=== PATIENT | male | born 1950 | race Caucasian/White ===

== ENCOUNTER 2024-06-22 22:21 | Inpatient (IN) ==
[2024-06-22 22:52] LABS: Basophils # (auto) 0.03 K/uL (0.00-0.20); Basophils % (auto) 0.3 %; Eosinophils # (auto) 0.02 K/uL (0.00-0.50); Eosinophils % (auto) 0.2 %; Hematocrit (blood only) 48.2 % (42.0-52.0); Hemoglobin 16.4 g/dl (14.0-18.0); Immature Granulocytes # (auto) 0.04 K/uL (0.01-0.20); Immature Granulocytes % (auto) 0.4 %; Lymphocytes # (auto) 1.56 K/uL (1.20-3.40); Lymphocytes % (auto) 13.9 %; Mean Corpuscular Hemoglobin 30.7 pg (25.0-34.0); Mean Corpuscular Volume 90.1 fL (80.0-100.0); Mean Platelet Volume 9.7 fL (9.4-12.4); Monocytes # (auto) 0.68 K/uL (0.11-0.59); Monocytes % (auto) 6.1 %; Neutrophils # (auto) 8.86 K/uL (1.40-6.50); Neutrophils % (auto) 79.1 %; Platelet Count 296 K/uL (130-400); RDW Standard Deviation 42.6 fL (36.4-46.3); Red Blood Count 5.35 M/uL (4.70-6.10); White Blood Count 11.19 K/ul (4.8-10.8)
[2024-06-22 23:10] LABS: Albumin Level 4.7 gm/dl (3.4-5.0); BUN Creatinine Ratio 15.6 (10-20); Bilirubin,Total 0.9 mg/dl (0.2-1.0); Calcium 9.4 mg/dl (8.6-10.3); Globulin 2.3 gm/dl (2.5-4.0); Potassium 3.6 mmol/L (3.5-5.1)
--- NOTE | 2024-06-23 00:02 | Emergency Department Note ---
Impression & Plan Myasthenia gravis with (acute) exacerbation ED Provider Note NAME: JILL WALL AGE: 74 SEX: M : 1950 ARRIVES VIA: Walk-In INFORMANT: Patient, ED PROVIDER(S): Patricia Marcum MD CHIEF COMPLAINT: Difficulty swallowing HPI: This is a 74-year-old male sent for difficulty swallowing. Patient states he history of myasthenia gravis for multiple years. He has been on steroids, previously plasmapheresis and takes a injection. Patient notes he follows with [facility] neurology. He states that he is on increased doses of steroids without much relief. He received an injection today. He notes that he have difficulty swallowing which is a significant. He notes he has had right-sided eye drooping for the past few days/weeks as a typical symptom of his myasthenia gravis flares. ROS: See above HPI for pertinent positives & negatives. A total of 10 systems reviewed and were otherwise negative. PAST MEDICAL HISTORY: See Below PAST SURGICAL HISTORY: See Below FAMILY HISTORY: See Below SOCIAL HISTORY: See Below HOME MEDICATIONS: See Below ALLERGIES: See Below VITALS: See Below PHYSICAL EXAMINATION: General: resting comfortably in no acute distress Head: Normocephalic and atraumatic Eyes: Normal inspection, extraocular muscles intact Ear, nose, throat: Normal external exam Neck: Normal range of motion Respiratory: lungs clear to auscultation bilaterally Cardiovascular: Regular rate/rhythm, no murmur GI: soft, nontender, no guarding or rebound Extremities: nontender, moves all extremities Neuro: Alert, oriented, motor function intact all extremities, right-sided ptosis Skin: Warm, dry, and intact MEDICAL DECISION MAKING: This is a 74-year-old male sent for difficulty swallowing per patient notes that he is able to get the food down but it feels slow and he like he is going to choke on it. He notes this never happened before. He does notice right-sided ptosis which has been persistent despite his increasing dose of steroids from his neurologist. -Discussed with on-call [facility] neurology physician. Based on symptoms, patient will require admission. Recommends IVIG for minimal 3 days and likely for total of 5 days. Would recommend every 4 hour respiratory checks. -Currently patient had a unremarkable NIF testing by respiratory -Bloodwork is reviewed showing no significant leukocytosis, anemia, electrolyte or creatinine abnormality -Care discussed Dr. Gonzalez, for admission of patient's likely myasthenia gravis flare Differential diagnosis: Myasthenia gravis, stroke, Lyme disease, GI obstruction, Independent History obtained from: Daughter Diagnostics interpreted by me: ECG: None Cardiac Monitoring: An order was placed for continuous cardiac monitoring. The monitor shows a rate of 72 with sinus rhythm. Past Med/Surg History Problem List (Updated 06/23/24 @ 05:11 by Patricia Marcum MD) Myasthenia gravis with (acute) exacerbation (Acute) Pain of right calf (Acute) Social History Smoking Status: Never smoker Feels Safe at Home: Yes Allergies Allergies Allergy/AdvReac Type Severity Reaction Status Date / Time RITHAMIN Allergy . Uncoded 05/03/12 16:05 Home Meds Home Medications Medication Instructions Recorded Confirmed alendronate 70 mg tablet 70 mg PO WK 06/23/24 06/23/24 finasteride 5 mg tablet 5 mg PO DAILY 06/23/24 06/23/24 mirtazapine 15 mg tablet 15 mg PO HS 06/23/24 06/23/24 prednisone 10 mg tablet 30 mg PO DAILY 06/23/24 06/23/24 pyridostigmine bromide 60 mg tablet 60 mg PO Q4H 06/23/24 06/23/24 sumatriptan succinate 100 mg tablet 100 mg PO UD 06/23/24 06/23/24 tamsulosin 0.4 mg capsule 0.4 mg PO DAILY 06/23/24 06/23/24 Results & Data (ED) Vital Signs Vital Signs - 24 hr 06/22/24 22:23 06/22/24 23:22 06/23/24 00:44 Temperature 36.4 C L Temperature Source Temporal Artery Scan Pulse Rate 108 H Pulse Rate [Left Finger] 92 H 98 H Pulse Rhythm [Left Finger] Pulse Strength [Left Finger] Respiratory Rate 16 18 18 Respiratory Effort / Characteristics Non-Labored Spontaneous Non-Labored Spontaneous Non-Labored Spontaneous Respiratory Depth Normal Normal Respiratory Pattern Regular Blood Pressure 170/77 H Blood Pressure [Right Arm] 159/84 H Blood Pressure Mean 108 Blood Pressure Mean [Right Arm] 109 Blood Pressure Position [Right Arm] Lying Pulse Oximetry 96 96 98 Oxygen Delivery Method Room Air Room Air Room Air Sepsis Recent Fever Within 48 Hours No Sepsis New/Unexplained Change in Mental Status No Sepsis Action Taken by Nursing No Action Required 06/23/24 01:00 06/23/24 03:00 Temperature Temperature Source Pulse Rate Pulse Rate [Left Finger] 70 72 Pulse Rhythm [Left Finger] Regular Pulse Strength [Left Finger] Normal Respiratory Rate 17 14 Respiratory Effort / Characteristics Non-Labored Spontaneous Non-Labored Spontaneous Respiratory Depth Normal Normal Respiratory Pattern Regular Regular Blood Pressure Blood Pressure [Right Arm] 145/81 H 137/88 Blood Pressure Mean Blood Pressure Mean [Right Arm] 102 104 Blood Pressure Position [Right Arm] Lying Lying Pulse Oximetry 98 96 Oxygen Delivery Method Room Air Room Air Sepsis Recent Fever Within 48 Hours Sepsis New/Unexplained Change in Mental Status Sepsis Action Taken by Nursing Laboratory Data 06/22/24 22:40 06/22/24 22:40 Lab Results 06/22/24 Range/Units 22:40 WBC 11.19 H (4.8-10.8) K/ul RBC 5.35 (4.70-6.10) M/uL Hgb 16.4 (14.0-18.0) g/dl Hct 48.2 (42.0-52.0) % MCV 90.1 (80.0-100.0) fL MCH 30.7 (25.0-34.0) pg MCHC 34.0 (32.0-36.0) g/dL RDW Std Deviation 42.6 (36.4-46.3) fL RDW Coeff of Patricia 13.0 (11.5-14.5) % Plt Count 296 (130-400) K/uL MPV 9.7 (9.4-12.4) fL Immature Gran % (Auto) 0.4 % Neut % (Auto) 79.1 % Lymph % (Auto) 13.9 % [place] % (Auto) 6.1 % Eos % (Auto) 0.2 % Baso % (Auto) 0.3 % Neut # (Auto) 8.86 H (1.40-6.50) K/uL Lymph # (Auto) 1.56 (1.20-3.40) K/uL [place] # (Auto) 0.68 H (0.11-0.59) K/uL Eos # (Auto) 0.02 (0.00-0.50) K/uL Baso # (Auto) 0.03 (0.00-0.20) K/uL Immature Gran # (Auto) 0.04 (0.01-0.20) K/uL Sodium 140 (136-145) mmol/L Potassium 3.6 (3.5-5.1) mmol/L Chloride 103 (98-107) mmol/L Carbon Dioxide 30 (21-32) mmol/L Anion Gap 7 (3-11) BUN 17 (6-23) mg/dl Creatinine 1.09 (0.6-1.4) mg/dl Est Cr Clr Drug Dosing 66.0 ml/min eGFR 72.11 BUN/Creatinine Ratio 15.6 (10-20) Glucose 99 (70-99(Fasting)) mg/dl Calcium 9.4 (8.6-10.3) mg/dl Total Bilirubin 0.9 (0.2-1.0) mg/dl AST 18 (13-39) U/L ALT 22 (7-52) U/L Alkaline Phosphatase 31 L (34-104) U/L Total Protein 7.0 (6.0-8.3) gm/dl Albumin 4.7 (3.4-5.0) gm/dl Globulin 2.3 L (2.5-4.0) gm/dl Albumin/Globulin Ratio 2.0 (0.9-2) Administered Medications Immune Globulin (Octagam 10%) 50 mls @ 52.74 mls/hr IV Q24H [facility]; Protocol Stop: 06/27/24 06:57 Last Admin: 06/23/24 04:42 Dose: 1 mg/kg/min, 52.7 mls/hr Documented By: PAG Discharge Plan Visit Data Chief Complaint: Referred by Doctor Stated Complaint: TROUBLE SWALLOWING ED Provider: Patricia Marcum Discharge Problem: Myasthenia gravis with (acute) exacerbation Discharge Instructions Interventions: ED Discharge Assessment Last Done: 06/23/24 03:49
--- NOTE | 2024-06-23 03:10 | History & Physical Report ---
Date of Service June 23, 2024 Assessment & Plan (1) Myasthenia gravis with (acute) exacerbation: Plan: 72-year-old male with past medical history significant for prostate cancer, BPH, history of basal cell carcinoma, history of myasthenia gravis, history of ptosis of right eyelid, who lives alone and ambulates with a cane presents with because of myasthenia gravis flare. Patient was on prednisone taper in April. Has had symptoms of fatigue he went back to 10 mg daily in first week of May. On patient had vyvgart infusion and next dose was supposed to be in 06/26/2024. On Jun 11 2024 patient started having some difficulty swallowing, double vision ,right eye drooping and called the neurology, [place] and his prednisone was increased to 20 mg daily. He was also started on Mestinon. As symptoms not getting better his Mestinon currently increased to 60 mg every 4 hours and also prednisone was increased 30 mg daily and and he had again vyvgart infusion on 06/22/2024 to see if it helps his symptoms. And tonight he had difficulty swallowing the Mestinon pills when he decided come to the ER. ER called the [facility] neurologist on-call and was recommended to start on IV Ig for now for 3 to 5 days and if there is no improvement or symptoms getting worse patient can be transferred for plasmapheresis. And also advised to check respiratory status every 4 hours. Patient currently resting comfortably and hemodynamically stable. His right eye is under patch. Denies any headache. Denies dizziness. No runny nose or sore throat. No cough. No earaches. No fever. Denies chest pain or shortness of breath. No nausea. No abdominal pain. Normal bowel and bladder movements. Myasthenia gravis with acute exacerbation Has right eye ptosis and difficulty swallowing Not improved with increased prednisone dose and Mestinon Had some difficulty swallowing Mestinon pills tonight Continue with IV Solu-Medrol 20 mg daily . Will hold Mestinon pills for now as he having difficulty swallowing and also serious interaction with steroids until cleared by neurology. Will start on IV Ig infusion If no improvement or worsening plan for transfer to [place] for plasmapheresis Neurology consult in a.m. for further recommendation Speech consult Close monitoring telemetry Close monitoring respiratory status every 4 hours History of prostate cancer Under surveillance with urology BPH On finasteride and Flomax Will monitor DVT prophylaxis Lovenox Disposition Telemetry Full code. History of Present Illness Chief Complaint: Myasthenia gravis flare Primary Care Provider: Rich Goel MD 72-year-old male with past medical history significant for prostate cancer, BPH, history of basal cell carcinoma, history of myasthenia gravis, history of ptosis of right eyelid, who lives alone and ambulates with a cane presents with because of myasthenia gravis flare. Patient was on prednisone taper in April. Has had symptoms of fatigue he went back to 10 mg daily in first week of May. On patient had vyvgart infusion and next dose was supposed to be in 06/26/2024. On Jun 11 2024 patient started having some difficulty swallowing, double vision ,right eye drooping and called the neurology, [place] and his prednisone was increased to 20 mg daily. He was also started on Mestinon. As symptoms not getting better his Mestinon currently increased to 60 mg every 4 hours and also prednisone was increased 30 mg daily and and he had again vyvgart infusion on 06/22/2024 to see if it helps his symptoms. And tonight he had difficulty swallowing the Mestinon pills when he decided come to the ER. ER called the [facility] neurologist on-call and was recommended to start on IV Ig for now for 3 to 5 days and if there is no improvement or symptoms getting worse patient can be transferred for plasmapheresis. And also advised to check respiratory status every 4 hours. Patient currently resting comfortably and hemodynamically stable. His right eye is under patch. Denies any headache. Denies dizziness. No runny nose or sore throat. No cough. No earaches. No fever. Denies chest pain or shortness of breath. No nausea. No abdominal pain. Normal bowel and bladder movements. Past medical history. As mentioned above Past surgical history. Colonoscopy. Dental surgery. Prostate needle Punch biopsy. Bilateral cataracts. Tonsillectomy adenoidectomy. Skin lesion biopsy. Social history. No smoking. Alcohol occasional. No drug use. Family history. Sister had breast cancer. Hepatitis C cured. Migraines. Father had prostate cancer. Colon/bladder cancer. Dementia. Mother had diabetes. Hypertension. Pacemaker, CHF. Uncle had prostate cancer. Allergies Allergy/AdvReac Type Severity Reaction Status Date / Time RITHAMIN Allergy . Uncoded 05/03/12 16:05 Home Medications Medication Instructions Recorded Confirmed Type alendronate 70 mg tablet 70 mg PO WK 06/23/24 06/23/24 History finasteride 5 mg tablet 5 mg PO DAILY 06/23/24 06/23/24 History mirtazapine 15 mg tablet 15 mg PO HS 06/23/24 06/23/24 History prednisone 10 mg tablet 30 mg PO DAILY 06/23/24 06/23/24 History pyridostigmine bromide 60 mg tablet 60 mg PO Q4H 06/23/24 06/23/24 History sumatriptan succinate 100 mg tablet 100 mg PO UD 06/23/24 06/23/24 History tamsulosin 0.4 mg capsule 0.4 mg PO DAILY 06/23/24 06/23/24 History Past Med/Surg History Problem List (Updated 06/23/24 @ 05:11 by Patricia Marcum MD) Myasthenia gravis with (acute) exacerbation (Acute) Pain of right calf (Acute) Social History Smoking Status: Never smoker Second Hand Exposure: No; Do You Dip or Chew Tobacco: No; Tobacco Cessation Education Requested by Patient: No Hx Alcohol Use: Yes Alcohol type: beer Hx Substance Use: No Preferred Language: [place] Communication Ability: Effective Datastage Developer Required: No Beliefs That Will Affect Care: None Current Living Situation: Alone Other Information That Helps Us Care for You: No Feels Safe at Home: Yes Safety Concerns: Feels Safe At This Time Assistive Devices: Cane and Glasses Review of Systems Review of Systems: All systems reviewed & are unremarkable except as noted in HPI & below Physical Exam Physical Exam: General- Not in distress Head- atraumatic Eyes- Right eye closed and not able top the eyelid, ENT- oropharynx clear Neck- supple, no JVD. Lungs- clear to auscultation no wheezing or crackles Heart- regular rate and rhythm; no murmur, no gallop. Abdomen- normal bowel sounds, soft, nontender, no distension. Extremities- no pretibial edema, no erythema seen Neuro- alert, oriented x 3; PERRL, Right eyelid closed, no facial palsy; no dysarthria; motor 5/5 bilaterally; Results & Data Results & Data Vital Signs (Past 12 Hours) Vital Signs Temp Pulse Pulse Resp BP Pulse Ox O2 Del Method 06/23/24 00:44 98 H 18 98 Room Air 06/22/24 22:23 36.4 C L 108 H 16 170/77 H 96 Room Air Diagnostic Findings Laboratory Results WBC 11.19 K/ul (4.8-10.8) H 06/22/24 22:40 RBC 5.35 M/uL (4.70-6.10) 06/22/24 22:40 Hgb 16.4 g/dl (14.0-18.0) 06/22/24 22:40 Hct 48.2 % (42.0-52.0) 06/22/24 22:40 MCV 90.1 fL (80.0-100.0) 06/22/24 22:40 MCH 30.7 pg (25.0-34.0) 06/22/24 22:40 MCHC 34.0 g/dL (32.0-36.0) 06/22/24 22:40 RDW Std Deviation 42.6 fL (36.4-46.3) 06/22/24 22:40 RDW Coeff of Patricia 13.0 % (11.5-14.5) 06/22/24 22:40 Plt Count 296 K/uL (130-400) 06/22/24 22:40 MPV 9.7 fL (9.4-12.4) 06/22/24 22:40 Immature Gran % (Auto) 0.4 % 06/22/24 22:40 Neut % (Auto) 79.1 % 06/22/24 22:40 Lymph % (Auto) 13.9 % 06/22/24 22:40 [place] % (Auto) 6.1 % 06/22/24 22:40 Eos % (Auto) 0.2 % 06/22/24 22:40 Baso % (Auto) 0.3 % 06/22/24 22:40 Neut # (Auto) 8.86 K/uL (1.40-6.50) H 06/22/24 22:40 Lymph # (Auto) 1.56 K/uL (1.20-3.40) 06/22/24 22:40 [place] # (Auto) 0.68 K/uL (0.11-0.59) H 06/22/24 22:40 Eos # (Auto) 0.02 K/uL (0.00-0.50) 06/22/24 22:40 Baso # (Auto) 0.03 K/uL (0.00-0.20) 06/22/24 22:40 Immature Gran # (Auto) 0.04 K/uL (0.01-0.20) 06/22/24 22:40 Sodium 140 mmol/L (136-145) 06/22/24 22:40 Potassium 3.6 mmol/L (3.5-5.1) 06/22/24 22:40 Chloride 103 mmol/L (98-107) 06/22/24 22:40 Carbon Dioxide 30 mmol/L (21-32) 06/22/24 22:40 Anion Gap 7 (3-11) 06/22/24 22:40 BUN 17 mg/dl (6-23) 06/22/24 22:40 Creatinine 1.09 mg/dl (0.6-1.4) 06/22/24 22:40 Est Cr Clr Drug Dosing 66.0 ml/min 06/22/24 22:40 eGFR 72.11 06/22/24 22:40 BUN/Creatinine Ratio 15.6 (10-20) 06/22/24 22:40 Glucose 99 mg/dl (70-99(Fasting)) 06/22/24 22:40 Calcium 9.4 mg/dl (8.6-10.3) 06/22/24 22:40 Total Bilirubin 0.9 mg/dl (0.2-1.0) 06/22/24 22:40 AST 18 U/L (13-39) 06/22/24 22:40 ALT 22 U/L (7-52) 06/22/24 22:40 Alkaline Phosphatase 31 U/L (34-104) L 06/22/24 22:40 Total Protein 7.0 gm/dl (6.0-8.3) 06/22/24 22:40 Albumin 4.7 gm/dl (3.4-5.0) 06/22/24 22:40 Globulin 2.3 gm/dl (2.5-4.0) L 06/22/24 22:40 Albumin/Globulin Ratio 2.0 (0.9-2) 06/22/24 22:40 Code Status & VTE Plan VTE Prophylaxis Plan VTE Prophylaxis will be ordered: Yes
[2024-06-23] MEDS ORDERED: IMMUNE GLOBULIN (HUMAN) SOLN IV SCH (03:49)
[2024-06-23] MEDS ORDERED: NITROGLYCERIN SL 0.4 MG/TAB TAB SL PRN (03:49)
[2024-06-23] MEDS: Octagam 10% IVIG 5 gram bottle IV SCH (04:42)
[2024-06-23] MEDS: D5W AND 1/2NSS 1,000 ML IV SCH (05:09)
[2024-06-23] MEDS: pyRIDostigmine bromide 60 MG TAB PO SCH (05:19)
[2024-06-23] MEDS: Octagam 10% IVIG 10 gram bottle IV SCH (05:41)
--- OUTSIDE RECORDS SUMMARY | 2024-06-23 06:10 | External Medical Summary | Summary of Care ---
Author Name Unknown Organization [facility] Address [address] [place] [address] Phone [phone] Care Team Providers Care Astronaut Mission Specialist Name Role Phone Theresa Johnson MD Primary Care Provider [phone] Reason for Visit * Reason Comments IV Therapy Vyvgart * Episode Based Medications (Routine) - Authorized Specialty Diagnoses / Procedures Referred By Contac t Referred To Contact Diagnoses Myasthenia gravis (HCC) Procedures NC INJECTION, EFGARTIGIMOD EVANGELINA-FCAB, 2MG Maksim Wright MD [address] [place] [address] Phone: tel: fax: Hematology/Oncology Treatment, [address] [address] Phone: tel: fax: Referral ID Status Reason Start Date Expiration Date V isits Requested Visits Authorized [id number] Authorized 11/04/2023 11/03/2024 99 99 Encounter Details Date Type Department Care Team (Latest Contact Info) Description 06/22/2024 10:45 AM EST Hem/Onc Treatment Hematology/Oncology Treatment, [address] [address] Park, Chair 2 Hem Onc [address] [address] Myasthenia gravis (HCC)* Allergies Active Allergy Reactions Criticality Noted Date Comments Benzalkonium Chloride 02/21/2015 Merthiolate "the orange kind" Caused a rash Milk (Cow) Diarrhea 02/05/2015 documented as of this encounter (statuses as of 06/22/2024) Medications ALEVE 220 MG PO CAPS as needed Active Fluticasone Propionate 50 MCG/ACT Nasal Suspension Administer 1 [place] into nostril in the morning. Active FIBER ADULT GUMMIES 2 g CHEW Take 2 Each by mouth daily. Active SUMAtriptan Succinate 100 MG Oral TabletIndication s:Migraine without status migrainosus, not intractable, unspecified migraine type TAKE 1 TABLET AT ONSET OF MIGRAINE. MAY REPEAT IN 2 HOURS BUT NOT MORE. 10 Tab 3 1 Active Additional Information Patient not taking.Reported on 04/09/2024 Triamcinolone Acetonide 0.5 % External CreamIndications :Dermatitis APPLY TO AFFECTED AREAS TWICE DAILY. 60 g 1 2 Active Additional Information Patient not taking.Reported on 06/04/2024 Calcium-Vitamin D-Minerals 600-400 MG-UNIT Oral Tablet ChewableIndicati ons:Myasthenia gravis (HCC) Take 1 tablet in the morning daily 30 Tablet 5 3 Active Alendronate Sodium 70 MG Oral Tablet (Fosamax)Indicat ions:High risk for fracture due to osteoporosis by DEXA scan Take 1 Tablet by mouth once a week. with 8 oz. water 30 minutes before first meal of the day. Remain upright for 30 min after taking tablet 12 Tablet 3 4 Active Tamsulosin HCl 0.4 MG Oral Capsule (Flomax)Indicati ons:BPH with obstruction/lowe r urinary tract symptoms Take 1 Capsule by mouth in the morning. 90 Capsule 3 4 Active Scopolamine 1 MG/3DAYS Transdermal Patch 72 Hour (Transderm-Scop) Place 1 patch topically on the skin for 72 hours maximum. May replace every 3 days. 3 Patch 4 Active Additional Information Patient not taking.Reported on 06/04/2024 Ketoconazole 2 % External CreamIndications :Seborrheic dermatitis Apply to dry skin on forehead, nose once daily 30 g 4 4 Active Mirtazapine 15 MG Oral Tablet (Remeron)Indicat ions:Adjustment insomnia Take 1 Tablet by mouth at bedtime. 90 Tablet 1 4 Active Finasteride 5 MG Oral Tablet (Proscar) Take 1 Tablet by mouth in the morning. 90 Tablet 3 5 Active predniSONE 10 MG Oral Tablet (Deltasone) Take 2 Tablets by mouth in the morning. 30 Tablet 6 5 Active predniSONE 10 MG Oral Tablet (Deltasone) Take 2 Tablets by mouth in the morning. 60 Tablet 4 5 Active pyRIDostigmine Bingen 60 MG Oral Tablet (Mestinon) Take 1 Tablet by mouth in the morning and 1 Tablet at noon and 1 Tablet before bedtime. 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 Headache 10/13/2010 Overview (08/13/2015): ICD-10 update of inactive term Family history of other cardiovascular diseases 08/06/2004 Overview (08/14/2015): ICD-10 update of inactive term Family history of malignant neoplasm of prostate 01/19/2001 Allergic rhinitis due to pollen documented as of this encounter (statuses as of 06/22/2024) Resolved Problems Problem Noted Date Diagnosed Date Resolved Date Myasthenia gravis with exacerbation 12/14/2022 12/19/2023 ADVANCE DIRECTIVE INFORMATION 12/30/2004 03/26/2024 Overview (12/30/2004): Yes, Patient instructed to provide copy of advance directive for provider to review and to be scanned into Electronic Medical Record Nonallopathic lesion of abdo men and other sites, not elsewhere classified 11/22/2003 06/30/19 12 documented as of this encounter (statuses as of 06/22/2024) Immunizations Name Administration Dates Next Due COVID-19 mRNA, LNP-s, No Pre serve, 2-Dose Series (Moderna) 07/13/2020,06/13/2020 Pneumococcal Conjugate Vacc, 13 Valent (Prevnar) 04/21/2017 Pneumococcal Polysaccharide PPV23 (Pneumovax) 02/19/2020 Seasonal Influenza Vac., MDV , IM, 0.5 mL (Fluzone) 02/05/2015,05/10/2014,03/16/2013 Seasonal Influenza, PF, 6 M & above, IM , (FluLaval or Fluzone) 04/02/2022,02/18/2021,03/27/2019,03/27,03/01/2017 Seasonal Influenza, Quadriva lent, No Preserve, IM 05/11/2016 Seasonal Influenza, Trivalen t, Adjuvanted, 65+ YRS, PF, (Fluad) 03/04/2020 TDAP (age 10 and older)(Boostrix) 03/16/2013 Varicella Zoster Vaccine (Adult) 02/05/2015 Zoster Vaccine Recombinant (Shingrix) 03/21/2019 ,12/26/2018 documented as of this encounter Social History Tobacco Use Types Packs/Day Years Used Date Smoking Tobacco: Never Passive Smoke Exposure: Past Smokeless Tobacco: Never Comments:Mother smoked aroun d as child no current passive smoke exposure Alcohol Use Standard Drinks/Week Comments Not Currently 0 (1 standard drink = 0.6 oz pur e alcohol) occ PHQ-2 Answer Date Recorded PHQ-2 Score 0 02/19/2020 Sex and Gender Information Value Date Recorded Sex Assigned at Male 11/27/2018 10:39 AM EDT Legal Sex Male 5:58 AM EST Gender Identity Male 11/27/2018 10:39 AM EDT Sexual Orientation Straight 11/27/2018 10 :39 AM EDT 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 Not on file Not on file Not on file documented as of this encounter Last Filed Vital Signs Vital Sign Reading Time Taken Comments Blood Pressure 130/75 06/22/2024 10:48 AM EST Pulse 91 06/22/2024 10:48 AM EST Temperature 36.2 C (97.2 F) 06/22/2024 10:[address] Respiratory Rate 16 06/22/2024 10:48 AM EST Oxygen Saturation 94% 06/22/2024 10:48 AM EST Inhaled Oxygen Concentration - - Weight 87.5 kg (193 lb) 06/22/2024 10:48 AM EST Height - - Body Mass Index 30.22 02/16/2024 8:46 AM EDT documented in this encounter Nursing Notes * Irene Maldonado RN - 06/22/2024 12:55 PM EST Goals: Patient will remain free from injury. Possible barriers to meeting goals: MG diagnosis, use of cane, eye patch and R eye droop Stability of the patient: Moderately stable - low risk of patient condition declining or worsening Summary regarding today's goals: Met: pt remained free of harm today Patient tolerated treatment well without any acute issues or problems. Patient refused observation period. Patient left facility in stable condition and denied any further needs. * Irene Maldonado RN - 06/22/2024 11:34 AM EST Chair 8. IV inserted. Patient here for another cycle of Vyvgart. Overall he is having an increase is MG symptoms lately - increased fatigue, R eye droop, and now reports he is starting to have some trouble swallowing - communicated this with Dr. Wright and will receive another cycle of Vyvgart starting today, has been increasing his Prednisone dose again per Dr. Wright's recommendations. Using a cane to ambulate. Patient has been having some stress and anxiety about current condition but will CTM to see if Vyvgart infusion starts to help symptom management. Patient instructed on use of heat and massage functions where applicable. Patient shown how to operate the heat function of the chair and to alert nursing staff if the chair feels too warm. Patient instructed on the risk of potential rodriguez while using the heat function. Safety and Risk for Injury Patient will remain free from injury. Ensure appropriate safety devices are available. Provide and maintain safe environment. documented in this encounter Plan of Treatment Upcoming Encounters Date Type Department Care Team (Late st Contact Info) Description 06/29/2024 8:45 AM EST Hem/Onc Treatment Hematology/Oncology Treatment, [place] [address] [facility], [place] [phone] Krista, Chair 2 Hem Onc Scenery [address] [place] [address] 07/06/2024 9:30 AM EST Hem/Onc Treatment Hematology/Oncology Treatment, [place] [address] [place] [phone] Krista, Chair 10 Hem Onc Scenery [address] [place] [address] 07/13/2024 9:30 AM EST Hem/Onc Treatment Hematology/Oncology Treatment, [place] [address] [place] [phone] Krista, Chair 5 Hem Onc Scenery [address] [place] [place] [address] 07/20/2024 9:00 AM EST Telemedicine Neurology [address] [place] [phone] Nathan, Pharmacist Neurology [address] [place] [address] 07/25/2024 11:00 AM EST Office Visit Neurology Nathan [address] [place] [phone] Maksim Wright MD [address] [place] [address] 09/13/2024 11:20 AM EDT Office Visit Family Practice Iam Velasco [place] [address] [place] [address] [place] [address] Theresa Johnson MD [address] [place] [address] 12/11/2024 11:15 AM EDT Office Visit Urology, [facility] [address] [place] [address] Ramesh Phan MD [address] [place] [address] 05/30/2025 11:15 AM EST Office Visit Dermatology [facility] [address] [facility] [place] [address] Marshall Henson MD [address] [facility] [place] [address] Scheduled Procedures Name Priority Associated Diagnoses Date/Ti me COLONOSCOPY FLEXIBLE PROXIMAL DIAGNOSTIC Recall History of colon polyps Health Maintenance Due Date Last Done Comments Cologuard 01/12/1997 Fecal Occult Blood Test 01/12/1997 Sigmoidoscopy 01/12/1997 Adult Wellness Visit 11/28/2019 11/27/2018 Depression Screening 02/18/2021 02/19/2020 COVID-19 Vaccine ( season) 2024 02/23/2024, 07/13/2020, 06/13/2020 Colonoscopy 05/26/2025 05/26/2020, 08/2020, 04/10/2015, Additional history exists Colorectal Cancer Screening 05/26/2025 Lipid Panel 03/03/2026 03/03/2021, 02/22, 02/09/2017, Additional history exists Zoster Vaccines Completed 03/21/2019, 10/2018, 02/05/2015 Pneumococcal Vaccine: 50+ Years Completed 02/19/2020, 04/21/2017 RETIRED - COLONOSCOPY-EVERY 5 YRS AGES 18-100 Discontinued 05/26/2020, 05/26/2020, 04/10/2015, Additional history exists Influenza Vaccine (FLU shot) Completed 02/20/2024, 03/21/2023, 04/02/2022, Additional history exists HPV (Gardasil) Vaccine Aged Out No lo nger eligible based on patient's age to complete this topic Hepatitis B Vaccine Aged Out No longe r eligible based on patient's age to complete this topic MENINGOCOCCAL (MENACTRA/MENVEO) Aged Out No longer eligible based on patient's age to complete this topic documented as of this encounter Medical Devices Implanted Type Area Tower Air Traffic Control Specialist Device Identifier Shelf Expiration Date Model / Serial / Lot Port Powerflow 9.6fr - [id number] Implanted:Qty : 1 on 03/15/2023 at [facility] : PERIPHERAL VASCULAR [id number] 10/21/2023 [id number] / / [id number] Power Port 8fr Sngl Lumen Plas - [id number] Implanted:Qty : 1 on 03/15/2023 at [facility] : PERIPHERAL VASCULAR [id number] 03/22/2024 [id number] / / [id number] Lens Li61ao 13.00mm 18.00 - [id number] - [id number] Implanted:Qty : 1 on 02/02/2024 by Andre Swartz MD at [facility] Right: Eye [employer]USCH & LOMB 08/20/2028 [id number] / [id number] / [id number] Lens Li61ao 13.00mm 17.50 - [id number] - [id number] Implanted:Qty : 1 on 02/16/2024 by Andre Swartz MD at [facility] Left: Eye BAUSCH & LOMB 07/20/2028 [id number] / [id number] / [id number] documented as of this encounter Visit Diagnoses Diagnosis Myasthenia gravis (HCC)- Primary Myasthenia gravis without exacerbation documented in this encounter Administered Medications Inactive Administered Medications - up to 3 most recent administrations Medication Order MAR Action Action Date Dose Rate Site Efgartigimod evangelina-fcab (Vyvgart) 800 mg in NSS 125 mL infusion 800 mg, IV Piggyback, ONCE, 1 dose, On Tue06/22/24 at 1200, In NSS Note: VOLUME TO BE INFUSED 125 ML Infuse over 1 hour via a 0.2 micron in-line filter; do not administer as IV push or bolus. 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 Question Answer Comments Discussion of Advance Directives occurred with: Patient Does the patient have a Living Will? No Does the patient have Health Care Power of Attor ephraim? No * Full Code Date Activated Date Inactivated Comments 02/02/2024 9:01 AM 02/02/2024 3:23 PM This order r eflects the patients wishes and were consensually agreed upon. Question Answer Comments Discussion of Advance Directives occurred with: Patient Does the patient have a Living Will? No Does the patient have Health Care Power of Attor ephraim? No Care Teams Astronaut Mission Specialist Relationship Specialty Start Date End Date Theresa Johnson MD [address] [place] [address] PCP - General Family Medicine 12/19/23 documented as of this encounter
--- OUTSIDE RECORDS SUMMARY | 2024-06-23 06:11 | External Medical Summary | Summary of Care ---
Author Name Unknown Organization [facility] Address [address] [place] [address] Phone [phone] Care Team Providers Care Boat Repairer Name Role Phone Theresa Johnson MD Primary Care Provider [phone] Reason for Visit * Reason Onset Date Comments Precert Future 06/01/2024 vyvgart Encounter Details Date Type Department Care Team (Late st Contact Info) Description 06/01/2024 Telephone [address] [place] [phone] Babita Olvera, DNP [address] [place] [address] Precert Future (vyvgart) Allergies Active Allergy Reactions Criticality Noted Date Comments Benzalkonium Chloride 02/21/2015 Merthiolate "the orange kind" Caused a rash Milk (Cow) Diarrhea 02/05/2015 documented as of this encounter (statuses as of 06/11/2024) Medications ALEVE 220 MG PO CAPS as needed Active Fluticasone Propionate 50 MCG/ACT Nasal Suspension Administer 1 [place] into nostril in the morning. Active FIBER ADULT GUMMIES 2 g CHEW Take 2 Each by mouth daily. Active SUMAtriptan Succinate 100 MG Oral TabletIndication s:Migraine without status migrainosus, not intractable, unspecified migraine type TAKE 1 TABLET AT ONSET OF MIGRAINE. MAY REPEAT IN 2 HOURS BUT NOT MORE. 10 Tab 3 02/06/20 21 Active Additional Information Patient not taking.Reported on 04/09/2024 Triamcinolone Acetonide 0.5 % External CreamIndications :Dermatitis APPLY TO AFFECTED AREAS TWICE DAILY. 60 g 1 08/22/19 22 Active Additional Information Patient not taking.Reported on 06/04/2024 Calcium-Vitamin D-Minerals 600-400 MG-UNIT Oral Tablet ChewableIndicati ons:Myasthenia gravis (HCC) Take 1 tablet in the morning daily 30 Tablet 5 06/08/19 23 Active Alendronate Sodium 70 MG Oral Tablet (Fosamax)Indicat ions:High risk for fracture due to osteoporosis by DEXA scan Take 1 Tablet by mouth once a week. with 8 oz. water 30 minutes before first meal of the day. Remain upright for 30 min after taking tablet 12 Tablet 3 03/13/20 24 Active Tamsulosin HCl 0.4 MG Oral Capsule (Flomax)Indicati ons:BPH with obstruction/lowe r urinary tract symptoms Take 1 Capsule by mouth in the morning. 90 Capsule 3 03/19/20 24 Active Scopolamine 1 MG/3DAYS Transdermal Patch 72 Hour (Transderm-Scop) Place 1 patch topically on the skin for 72 hours maximum. May replace every 3 days. 3 Patch 03/19/20 24 Active Additional Information Patient not taking.Reported on 06/04/2024 Ketoconazole 2 % External CreamIndications :Seborrheic dermatitis Apply to dry skin on forehead, nose once daily 30 g 4 05/04/20 24 Active Mirtazapine 15 MG Oral Tablet (Remeron)Indicat ions:Adjustment insomnia Take 1 Tablet by mouth at bedtime. 90 Tablet 1 05/14/20 24 Active predniSONE 5 MG Oral Tablet (Deltasone) Take 10 mg alternating with 5 mg every other day 45 Tablet 5 01/25/20 24 025 Discontin ued(Medic ation/Dos e Changed) documented as of this encounter (statuses as of 06/11/2024) Active Problems Problem Noted Date Diagnosed Date [...] as of this encounter (statuses as of 06/11/2024) Resolved Problems Problem Noted Date Diagnosed Date [...] as of this encounter (statuses as of 06/11/2024) Immunizations Name Administration Dates Next Due COVID-19 [...] t, Adjuvanted, 65+ YRS, PF, (Fluad) 03/04/2020 TD - Tetanus/Diptheria (ADULT) 01/09/2002 TDAP (age 10 and older)(Boostrix) 03/16/2013 Varicella [...] Industry Job 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 Scheduling: ok to move to 06/22 if schedule able to accommodate. Thanks! Other infusions can be moved up as well. * Telephone Encounter - Bernard Mcgee RN - 06/11/2024 10:44 AM EST Pre-cert: Pt provider would like patient to receive Vyvgart 06/22 (3 days before next scheduled). Isit ok to proceed with this per insurance? Anette- will check with insurance, if it's ok from their standpoint we can have the patient rescheduled. * Telephone Encounter - Anette Tanner [facility] - 06/11/2024 10:39 AM EST Patient having increased MG symptoms. Dr. Wright would like to move Vyvgart infusions to start50 days from start of previous cycle, so first infusion in cycle on 06/22/24. Are infusions able to be rescheduled? Please let me know if new SCP needed. * Telephone Encounter - Trevor Fernandez OSA - 06/07/2024 2:25 PM EST Patient scheduled and aware * Telephone Encounter - Paola Caraballo RN - 06/07/2024 2:05 PM EST Patient called back in other encounter. * Telephone Encounter - Ro Cosby OSA - 06/07/2024 9:50 AM EST No auth is required, updated referral note so it is recent. * Telephone Encounter - Trevor Fernandez OSA - 06/07/2024 9:12 AM EST Left message & MyG sent * Telephone Encounter - Paola Caraballo RN - 06/07/2024 7:19 AM EST Referral updated to auth. Scheduling: please call patient to schedule 3 hour appt "vyvgart 05/26" (Dr Maksim Wright)- for 06/25/24 (requested) or later date. Thanks! Patient will need vyvgart once a week x4. * Telephone Encounter - Bernard Mcgee RN - 06/06/2024 11:03 AM EST Medication received by Yunier. Precert- is auth still valid or can new auth be obtained? Additional cycle was added on to previousplan. Thank you. * Telephone Encounter - Paola Caraballo RN - 06/01/2024 9:18 AM EST Order received for continue vyvgart x1 more cycle. Additional cycle added to beacon plan and routed for signature. Per referral, auth previously not required- this will need to be updated by precert since cycle wasadded. Start date 06/25/24. Yunier: please advise if/ when vyvgart will be available. Thanks! * Telephone Encounter - Antete Tanner RPh - 06/01/2024 9:16 AM EST Placed SCP for next Vyvgart cycle to begin 06/25/24 (53 days from start of previous cycle). Plan New Supportive Care Plan Treatment Ordered By: Other --- Protocol: SCP - EFGARTIGIMOD ONEYDA (VYVGART) [id number] --- Drug to be Infused: Vyvgart --- Dose: 10 mg/kg (max 1200 mg) every week x4 weeks --- Frequency: 10 mg/kg (max 1200 mg) every week x4 ... documented in this encounter Plan of Treatment Upcoming Encounters Date Type Department Care Team (Late st Contact Info) Description 06/15/2024 9:00 AM EST Telemedicine Neurology [address] [place] [phone] Nathan, Pharmacist Neurology [address] [place] [address] [place] [id number] 06/19/2024 1:45 PM EST Scheduled Telephone Neurology [address] [place] [phone] Neuromuscular, Phone Nurse Neuro [address] [place] [address] 06/26/2024 11:00 AM EST Hem/Onc Treatment Hematology/Oncology Treatment, [place] [address] [place] [address] Park, Chair 6 Hem Onc Scenery [address] [place], [place] [address] 07/03/2024 9:00 AM EST Hem/Onc Treatment Hematology/Oncology Treatment, [place] [address] [place] [address] Park, Chair 3 Hem Onc Scenery [address] [place], [place] [address] 07/10/2024 9:00 AM EST Hem/Onc Treatment Hematology/Oncology Treatment, [place] [address] [place] [address] Krista, Chair 3 Hem Onc Scenery [address] [place], [place] [address] 07/17/2024 9:00 AM EST Hem/Onc Treatment Hematology/Oncology Treatment, [place] [address] [place] [address] Krista, Chair 3 Hem Onc Scenery [address] [place], [place] [address] 07/25/2024 11:00 AM EST Office Visit Neurology [address] [place] [phone] Maksim Wright MD [address] [facility] [address] 09/13/2024 11:20 AM EDT Office Visit Family Practice [facility] [address] [place], [place] [address] Theresa Johnson MD [address] [place] [address] 12/11/2024 11:15 AM EDT Office Visit Urology, [facility] [address] [place] [address] Ramesh Phan MD [address] [place] [address] 05/30/2025 11:15 AM EST Office Visit Dermatology [facility] [address] [facility] [place] [address] Marshall Henson MD [address] [facility] [place] [address] Scheduled Procedures Name Priority Associated Diagnoses Date/Ti [...] this encounter Medical Devices Implanted Type Area Inset Cutter Device Identifier Shelf Expiration Date Model / Serial / Lot Port Powerflow 9.6fr - [id number] Implanted:Qty : 1 on 03/15/2023 at [facility] : PERIPHERAL VASCULAR [id number] 10/21/2023 [id number] / / [id number] Power Port 8fr Sngl Lumen Plas - [id number] Implanted:Qty : 1 on 03/15/2023 at [facility] [place] : PERIPHERAL VASCULAR [id number] 03/22/2024 [id number] / / [id number] Lens Li61ao 13.00mm 18.00 - [id number] - [id number] Implanted:Qty : 1 on 02/02/2024 by Andre Swartz MD at [facility] Right: Eye [employer]USCH [employer] LOMB 08/20/2028 [id number] / [id number] / [id number] Lens Li61ao 13.00mm 17.50 - [id number] - [id number] Implanted:Qty : 1 on 02/16/2024 by Andre Swartz MD at [facility] Left: Eye BAUSCH & LOMB 07/20/2028 [id number] / [id number] / [id number] documented as of this encounter Visit Diagnoses Diagnosis Myasthenia gravis (HCC) Myasthenia gravis without exacerbation documented in this encounter Advance Directives Documents on File Type Date Recorded Patient Director Staffing Expl anation Power of Hair Tinter 06/20/2018 POWER OF A TTORNEY POA: EDEL- [...] Power of Attor ephraim? No Care Teams Boat Repairer Relationship Specialty Start Date End Date Theresa Johnson MD [address] [facility] [place] [address] PCP - General Family Medicine 12/19/23 documented as of this encounter
--- OUTSIDE RECORDS SUMMARY | 2024-06-23 06:11 | External Medical Summary | Summary of Care ---
Author Name Unknown Organization [facility] Address [address] [facility] [place] [address] Phone [phone] Care Team Providers Care Sorting Grapple Operator Name Role Phone Theresa Johnson MD Primary Care Provider Encounter Details Date Type Department Care Team (Late st Contact Info) Description 06/14/2024 Population Health External Data Unspecified Department Allergies Active Allergy Reactions Criticality Noted Date Comments Benzalkonium Chloride 02/21/2015 Merthiolate "the orange kind" Caused a rash Milk (Cow) Diarrhea 02/05/2015 documented as of this encounter (statuses as of 06/14/2024) Medications ALEVE 220 MG PO CAPS as needed Active Fluticasone Propionate 50 MCG/ACT Nasal Suspension Administer 1 [place] into nostril in the morning. Active FIBER [...] morning. 60 Tablet 4 5 Active pyRIDostigmine [place] 60 MG Oral Tablet (Mestinon) Take 1 Tablet by mouth in the morning and 1 Tablet at noon and 1 Tablet before bedtime. 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 on file Not on file Not on file documented as of this encounter Plan of Treatment Upcoming Encounters Date Type Department Care Team (Late st Contact Info) Description 06/15/2024 9:00 AM EST Telemedicine Neurology [address] [place] [phone] Nathan, Pharmacist Neurology [address] [facility] [place] [address] 06/19/2024 1:45 PM EST Scheduled Telephone Neurology [address] [place] [phone] Neuromuscular, Phone Nurse Neuro [address] [facility] [place] [address] 06/22/2024 10:45 AM EST Hem/Onc Treatment Hematology/Oncology Treatment, [place] [address] [place] [address] Krista, Chair 2 Hem Onc Scen[address] [place] [address] 06/26/2024 11:00 AM EST Hem/Onc Treatment Hematology/Oncology Treatment, [place] [address] [place] [address] Krista, Chair 6 Hem Onc Scenery [address] [place] [address] 07/03/2024 9:00 AM EST Hem/Onc Treatment Hematology/Oncology Treatment, [place] [address] [place] [address] Krista, Chair 3 Hem Onc [facility] 200 [facility] [place], [place] [address] 07/10/2024 9:00 AM EST Hem/Onc Treatment Hematology/Oncology Treatment, [place] [address] [place] [address] Krista, Chair 3 Hem Onc [facility] 200 [facility] [address] 07/25/2024 11:00 AM EST Office Visit Neurology [address] [place] [address] Maksim Wright MD [address] [place] [address] 09/13/2024 11:20 AM EDT Office Visit Family Practice [facility] [address] [place], [place] [address] Theresa Johnson MD 200 [facility] [place], [place] [address] 12/11/2024 11:15 AM EDT Office Visit Urology, [facility] 132 [facility] [place] [address] Ramesh Phan MD [address] [place] [address] 05/30/2025 11:15 AM EST Office Visit Dermatology [facility] [address] [place], [place] [address] Marshall Henson MD [address] [place] [address] Scheduled Procedures Name Priority Associated Diagnoses Date/Ti [...] this encounter Medical Devices Implanted Type Area Veterinary Toxicologist Device Identifier Shelf Expiration Date Model / Serial / Lot Port Powerflow 9.6fr - [id number] Implanted:Qty : 1 [facility] [id number] 10/21/2023 [id number] / / [id number] Power Port 8fr Sngl Lumen Plas - [id number] Implanted:Qty : 1 on [facility]/20[facility]AL VASCULAR [id number] 03/22/2024 [id number] / / [id number] Lens Li61ao 13.00mm 18.00 - [id number] - [id number] Implanted:Qty : 1 on 02/02/2024 by Andre Swartz MD at [facility] Right: Eye [employer]USCH [employer] LOMB 08/20/2028 [id number] / [id number] / [id number] Lens Li61ao 13.00mm 17.50 - [id number] - [id number] Implanted:Qty : 1 on 02/16/2024 by Andre Swartz MD at [facility] Left: Eye BAUSCH & LOMB 07/20/2028 [id number] / [id number] / [id number] documented as of this encounter Advance Directives Documents on File Type Date Recorded Patient Tool And Die Manager Expl anation Power of Flame Annealing Machine Setter 06/20/2018 POWER OF A TTORNEY POA: MAYRA- DAUGHTER, ROBERT-SON * Full Code (Latest Code [...] Power of Attor ephraim? No Care Teams Sorting Grapple Operator Relationship Specialty Start Date End Date Theresa Johnson MD [address] [place] [address] PCP - General Family Medicine 12/19/23 documented as of this encounter
--- OUTSIDE RECORDS SUMMARY | 2024-06-23 06:11 | External Medical Summary | Summary of Care ---
Author Name Unknown Organization [facility] Address [address] [place] [address] Phone [phone] Care Team Providers Care Stereo Plotter Operator Name Role Phone Theresa Johnson MD Primary Care Provider [phone] Reason for Visit * Reason Onset Date Comments TRIAGE 06/22/2024 Encounter Details Date Type Department Care Team (Late st Contact Info) Description 06/22/2024 Telephone Neurology [place], [place] [address] [place] [address] Services, Scheduling [address] [place] [address] TRIAGE Allergies Active Allergy Reactions Criticality Noted Date Comments Benzalkonium Chloride 02/21/2015 Merthiolate "the orange kind" Caused a rash Milk (Cow) Diarrhea 02/05/2015 documented as of this encounter (statuses as of 06/22/2024) Medications ALEVE 220 MG PO CAPS as needed Active Fluticasone Propionate 50 MCG/ACT Nasal Suspension Administer 1 [place] into nostril in the morning. Active FIBER [...] morning. 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 Throat feels swollen-feels different than before Mestinon 1 am and at 6am Scrambled eggs and small sips of water/coffee for breakfast Advised to take another Mestinon at this time Ptosis of right eye Double vision Energy level not bad, no stamina SOB on exertion on steps, but not out ordinary No weakness-completed ADL's this am without issues No neck weakness Currently on Prednisone 30mg po daily-started yesterday And Mestinon Discussed with Babita Advised patient to get his Vyvgart at 10:45am today Also, can take Mestinon every 4 hrs, but might have some additional diarrhea. Advised patient if things get worse to seek immediate attention at ER. Pt verbalized understanding at this time * Telephone Encounter - Azucena Vera OSA - 06/22/2024 9:25 AM EST Neuroscience Phone Call Form- Requested Information from caller: Who is calling patient Provider patient is established with: Dr Wright What is the concern or issue they are having: Giorgio Sosa pt of Dr Wright pt has infusion scheduled today at 1045 for Vyvgart he states his troat is closed up more than usual would like a nurse or PA to call him back contact # [phone] or [phone] tiger text sent also Phone number for nurse to call back: [phone] or [phone] documented in this encounter Plan of Treatment Upcoming Encounters Date Type Department Care Team (Late st Contact Info) Description 07/20/2024 9:00 AM EST Telemedicine Neurology Nathan [address] [place] [phone] Nathan Pharmacist Neurology [address] [place] [address] 07/25/2024 11:00 AM EST Office Visit Neurology Nathan Lawson [address] [place] [address] Maksim Wright MD [address] [place], [place] [id number] 09/13/2024 11:20 AM EDT Office Visit Family Practice [facility] [address] [place] [address] Theresa Johnson MD [address] [place] [address] 12/11/2024 11:15 AM EDT Office Visit Urology, [facility] [place] [address] Ramesh Phan MD [address] [place] [address] 05/30/2025 11:15 AM EST Office Visit Dermatology [facility] [address] [place] [address] Marshall Henson MD [facility] [place] [address] Scheduled Procedures Name Priority Associated Diagnoses Date/Ti [...] this encounter Medical Devices Implanted Type Area Service Line Coordinator Device Identifier Shelf Expiration Date Model / Serial / Lot Port Powerflow 9.6fr - [id number] Implanted:Qty : 1 on 03/15/2023 at [facility] CR BARD : PERIPHERAL VASCULAR [id number] 10/21/2023 [id number] / / [id number] Power Port 8fr Sngl Lumen Plas - [id number] Implanted:Qty : 1 on 03/15/2023 at [facility] CR BARD : PERIPHERAL VASCULAR [id number] 03/22/2024 [id number] / / [id number] Lens Li61ao 13.00mm 18.00 - [id number] - [id number] Implanted:Qty : 1 on 02/02/2024 by Andre Swartz MD at [facility] Right: Eye [employer]USCH [employer] LOMB 08/20/2028 [id number] / [id number] / [id number] Lens Li61ao 13.00mm 17.50 - [id number] - [id number] Implanted:Qty : 1 on 02/16/2024 by Andre Swartz MD at [facility] Left: Eye BAUSCH [employer] LOMB 07/20/2028 [id number] / [id number] / [id number] documented as of this encounter Advance Directives Documents on File Type Date Recorded Patient Application Chemist Expl anation Power of Edm Operator 06/20/2018 POWER OF A TTORNEY POA: EDEL- [...] Power of Attor ephraim? No Care Teams Stereo Plotter Operator Relationship Specialty Start Date End Date Theresa Johnson MD 200 [facility] [place] [address] PCP - General Family Medicine 12/19/23 documented as of this encounter
--- OUTSIDE RECORDS SUMMARY | 2024-06-23 06:11 | External Medical Summary | Summary of Care ---
Author Name Unknown Organization [facility] Address [address] [place] [address] Phone [phone] Care Team Providers Care 21 Dealer Name Role Phone Theresa Johnson MD Primary Care Provider [phone] Reason for Visit * Reason Onset Date Comments Precert Future 06/01/2024 vyvgart Encounter Details Date Type Department Care Team (Late st Contact Info) Description 06/01/2024 [address]phone [address] [place] [phone] Babita Olvera, DNP [address] [place] [address] Precert Future (vyvgart) Allergies Active Allergy Reactions Criticality Noted Date Comments Benzalkonium Chloride 02/21/2015 Merthiolate "the orange kind" Caused a rash Milk (Cow) Diarrhea 02/05/2015 documented as of this encounter (statuses as of 06/11/2024) Medications ALEVE 220 MG PO CAPS as needed Active Fluticasone Propionate 50 MCG/ACT Nasal Suspension Administer 1 [place] into nostril in the morning. 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 * Telephone Encounter - Anette Tanner brett - 06/11/2024 10:39 AM EST Patient having [...] be available. Thanks! * Telephone Encounter - Anette Tanner RPh - 06/01/2024 9:16 AM EST Placed SCP for next Vyvgart cycle to begin 06/25/24 (53 days from start of previous cycle). Plan New Supportive Care Plan Treatment Ordered By: Other --- Protocol: SCP - EFGARTIGIMOD ONEYDA (VYVGART) [id number] --- Drug to be Infused: Vyvgart --- Dose: 10 mg/kg (max 1200 mg) every week x4 weeks --- Frequency: 10 mg/kg (max 1200 mg) every week x4 ... documented in this encounter Plan of Treatment Upcoming Encounters Date Type Department Care Team (Late st Contact Info) Description 06/15/2024 9:00 AM EST Telemedicine Neurology [address] [place] [phone] Neto, Pharmacist Neurology [address] [facility] [place], [place] [address] 06/19/2024 1:45 PM EST Scheduled Telephone Neurology [address] [place], [place] [address] Neuromuscular, Phone Nurse Neuro [address] [facility] [place], [place] [address] 06/22/2024 10:45 AM EST Hem/Onc Treatment Hematology/Oncology Treatment, [place] 200 [facility] [place] [address] Krista, Chair 2 Hem Onc Scenery [address] [place], [place] [address] 06/26/2024 11:00 AM EST Hem/Onc Treatment Hematology/Oncology Treatment, [place] 200 [facility] [place] [address] Krista, Chair 6 Hem Onc Scenery [address] [place], [place] [address] 07/03/2024 9:00 AM EST Hem/Onc Treatment Hematology/Oncology Treatment, [address] [place] [address] Krista, Chair 3 Hem Onc Scenery [address] [place] [address] 07/10/2024 9:00 AM EST Hem/Onc Treatment Hematology/Oncology Treatment, [address] [place] [address] Krista, Chair 3 Hem Onc Scenery [address] [place] [address] 07/17/2024 9:00 AM EST Hem/Onc Treatment Hematology/Oncology Treatment, [address] [place] [address] Krista, Chair 3 Hem Onc Scenery [address] [place] [address] 07/25/2024 11:00 AM EST Office Visit Neurology [address] [place], [place] [address] Maksim Wright MD [address] [facility] [place] [id number] 09/13/2024 11:20 AM EDT Office Visit Family Practice [facility] [address] [place] [address] Theresa Johnson MD [address] [place] [address] 12/11/2024 11:15 AM EDT Office Visit Urology, [facility] [address] [place] [address] Ramesh Phan MD 27 [facility] [place] [address] 05/30/2025 11:15 AM EST Office Visit Dermatology [facility] [address] [place] [address] Marshall Henson MD 200 [facility] [place] [address] Scheduled Procedures Name Priority Associated Diagnoses Date/Ti [...] Additional history exists Zoster Vaccines Completed 03/21/2019, 08/0 10/2018, 02/05/2015 Pneumococcal Vaccine: 50+ Years Completed [...] this encounter Medical Devices Implanted Type Area Senior Application Security Consultant Device Identifier Shelf Expiration Date Model / Serial / Lot Port Powerflow 9.6fr - [id number] Implanted:Qty : 1 on 03/15/2023 at [facility] CR BARD : PERIPHERAL VASCULAR [id number] 10/21/2023 [id number] / / [id number] Power Port 8fr Sngl Lumen Plas - [id number] Implanted:Qty : 1 on 03/15/2023 at [facility] CR BARD : PERIPHERAL VASCULAR [id number] 03/22/2024 [id number] / / [id number] Lens Li61ao 13.00mm 18.00 - [id number] - [id number] Implanted:Qty : 1 on 02/02/2024 by Andre Swartz MD at OR [facility] Right: Eye [employer]USCH [employer] LOMB 08/20/2028 [id number] / [id number] / [id number] Lens Li61ao 13.00mm 17.50 - [id number] - [id number] Implanted:Qty : 1 on 02/16/2024 by Andre Swartz MD at [facility] Left: Eye BAUSCH & LOMB 07/20/2028 [id number] / [id number] / [id number] documented as of this encounter Visit Diagnoses Diagnosis Myasthenia gravis (HCC) Myasthenia gravis without exacerbation documented in this encounter Advance Directives Documents on File Type Date Recorded Patient Containers Sales Representative Expl anation Power of Accordion Tuner 06/20/2018 POWER OF A TTORNEY POA: EDEL- [...] Power of Attor ephraim? No Care Teams 21 Dealer Relationship Specialty Start Date End Date Theresa Johnson MD [address] [place] [address] PCP - General Family Medicine 12/19/23 documented as of this encounter
--- OUTSIDE RECORDS SUMMARY | 2024-06-23 06:11 | External Medical Summary | Summary of Care ---
Author Name Unknown Organization [facility] Address [address] [facility] [address] Phone [phone] Care Team Providers Care Certified Executive Chef Name Role Phone Theresa Johnson MD Primary Care Provider [phone] Reason for Visit * Reason Comments Dosage Adjustment Via Phone (anticoag Cl inic) Encounter Details Date Type Department Care Team (Late st Contact Info) Description 06/15/2024 9:00 AM EST Telemedicine Neurology [address] [place] [phone] Neto, Pharmacist Neurology [address] [place] [address] Myasthenia gravis (HCC)* Allergies Active Allergy Reactions Criticality Noted Date Comments Benzalkonium Chloride 02/21/2015 Merthiolate "the orange kind" Caused a rash Milk (Cow) Diarrhea 02/05/2015 documented as of this encounter (statuses as of 06/15/2024) Medications ALEVE 220 MG PO CAPS as needed Active Fluticasone Propionate 50 MCG/ACT Nasal Suspension Administer 1 [place] into nostril in the morning. Active FIBER ADULT GUMMIES 2 g CHEW Take 2 Each by mouth daily. Active SUMAtriptan Succinate 100 MG Oral TabletIndication s:Migraine without status migrainosus, not intractable, unspecified migraine type TAKE 1 TABLET AT ONSET OF MIGRAINE. MAY REPEAT IN 2 HOURS BUT NOT MORE. 10 Tab 3 Active Additional Information Patient not taking.Reported on [...] morning. 60 Tablet 4 5 Active pyRIDostigmine [place] 60 MG Oral Tablet (Mestinon) Take 1 Tablet by mouth in the morning and 1 Tablet at noon and 1 Tablet before bedtime. 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 Patient Symptom Assessment [facility] Neurology Patient location: HOME. I was in a hospital or clinic location. After connecting through televIbelemo,patient was verified with two unique identifiers. Patient (or authorized legal patient financial representative) was then informed that this was a Telemedicine visit and being conducted confidentially over secure lines. Methods to assure confidentiality were taken. Patient acknowledged consent and understanding of pr ivacy and security of the Telemedicine visit. The patient agreed to participate. Time spent sleeve ironer: 10 minutes. Vyvgart Dosing - Cycle 1 -09/16/23, 09/23/23, 09/30/23 , 10/07/23 Cycle 2- 11/14/23, 11/21/23, 11/28/23, 12/05/23 Cycle 3- 01/12/24, 01/19/24, 01/26/24, 02/01/24 Cycle 4 - 03/12/24, 03/19/24, 03/26/24, 04/02/24 Cycle 5 - 05/03/24, 05/11/24, 05/21/24, 05/28/24 Baseline MG-ADL completed on 09/02/23: 6 MG-ADL on 06/15/24: Talkin [place]win Swallowin - one incident two nights ago where sarina crackers got caught in throat Breathin Impairment of ability to brush teeth of comb hair: 0 Impairment of ability to arise from chair: 1 Double vision: 3 Eyelid droop: 2 Total Score: 8 See 06/11/24 MyG - patient noted worsening symptoms earlier this week. Dr. Wright increased prednisone dose to 20 mg daily and Vyvgart cycle was bumped to start 06/22/24 (50 days from start of previous cycle, previously dosing at 53 days). Patient states that last week on he went to a volunteering session and after about 3-4 hours, he felt tired. The week prior he did not have this issue. Tuesday into Tuesday he was very fatigued and reached out to our office on Tuesday. He has noticed that the Mestinon is helping a bit. He has not needed the cane over the past few days and eyelid drooping has improved back to baseline. Hisdouble vision is full-on and as bad as it has ever been. He notes that he doesn't feel strong enough to go to the gym as he usually does. Next Vyvgart cycle scheduled to start 06/22/24. We discussed follow-up call on 06/21, but patient feels we can defer until after completion of next cycle. I sent a [employer] message to patient so that he maycontact me with any issues/questions in the meantime. Patient was advised to contact the clinic with any questions or concerns. Follow up: 07/20/24 for MG-ADL call Anette Tanner RPh Clinical Pharmacist, Neurology Medication Therapy Disease Management 06/15/2024 8:23 AM documented in this encounter Plan of Treatment Upcoming Encounters Date Type Department Care Team (Late st Contact Info) Description 06/19/2024 1:45 PM EST Scheduled Telephone Neurology [address] [place] [address] Neuromuscular, Phone Nurse Neuro [address] [facility] [place], [place] [id number] 06/22/2024 10:45 AM EST Hem/Onc Treatment Hematology/Oncology Treatment, [address] [place] [address] Krista, Chair 2 Hem Onc Scenery [address] [place] [address] 06/26/2024 11:00 AM EST Hem/Onc Treatment Hematology/Oncology Treatment, [place] 200 [facility] [place] [address] Krista, Chair 6 Hem Onc Scenery [address] [place] [address] 07/03/2024 9:00 AM EST Hem/Onc Treatment Hematology/Oncology Treatment, [place] 200 [facility] [place] [address] Krista, Chair 3 Hem Onc Scenery [address] [place] [address] 07/10/2024 9:00 AM EST Hem/Onc Treatment Hematology/Oncology Treatment, [place] 200 [facility] [place] [address] Krista, Chair 3 Hem Onc Scenery [address] [place] [address] 07/20/2024 9:00 AM EST Telemedicine Neurology [address] [place] [address] Neto, Pharmacist Neurology [address] [facility] [address] 07/25/2024 11:00 AM EST Office Visit Neurology [address] [place] [address] Maksim Wright MD [address] [place] [address] 09/13/2024 11:20 AM EDT Office Visit Family Practice [facility] [address] [place] [address] Theresa Johnson MD 200 [facility] [place] [address] 12/11/2024 11:15 AM EDT Office Visit Urology, [facility] 132 [facility] [place] [address] Ramesh Phan MD [address] [place] [address] 05/30/2025 11:15 AM EST Office Visit Dermatology [facility] [address] [place] [address] Marshall Henson MD 200 [place] [address] Scheduled Procedures Name Priority Associated Diagnoses Date/Ti [...] this encounter Medical Devices Implanted Type Area Casting Machine Operator Automatic Device Identifier Shelf Expiration Date Model / Serial / Lot Port Powerflow 9.6fr - [id number] Implanted:Qty : 1 on 03/15/2023 at [facility] CR BARD : PERIPHERAL VASCULAR [id number] 10/21/2023 [id number] / / [id number] Power Port 8fr Sngl Lumen Plas - [id number] Implanted:Qty : 1 on 03/15/2023 at [facility] CR BARD : PERIPHERAL VASCULAR [id number] 03/22/2024 [id number] / / [id number] Lens Li61ao 13.00mm 18.00 - [id number] - [id number] Implanted:Qty : 1 on 02/02/2024 by Andre Swartz MD at [facility] Right: Eye [employer] LOMB 08/20/2028 [id number] / [id number] / [id number] Lens Li61ao 13.00mm 17.50 - [id number] - [id number] Implanted:Qty : 1 on 02/16/2024 by Andre Swartz MD at [facility] Left: Eye BAUSCH & LOMB 07/20/2028 [id number] / [id number] / [id number] documented as of this encounter Visit Diagnoses Diagnosis Myasthenia gravis (HCC)- Primary Myasthenia gravis without exacerbation documented in this encounter Advance Directives Documents on File Type Date Recorded Patient Masonry Supervisor Expl anation Power of Lime Sludge Mixer 06/20/2018 POWER OF A TTORNEY POA: EDEL- [...] Power of Attor ephraim? No Care Teams Certified Executive Chef Relationship Specialty Start Date End Date Theresa Johnson MD [address] [place] [address] PCP - General Family Medicine 12/19/23 documented as of this encounter
--- OUTSIDE RECORDS SUMMARY | 2024-06-23 06:11 | External Medical Summary | Summary of Care ---
Author Name Unknown Organization [facility] Address [address] [place] [address] Phone [phone] Care Team Providers Care Chief Cruiser Name Role Phone Theresa Johnson MD Primary Care Provider [phone] Reason for Visit * Reason Comments Outpatient Testing Encounter Details Date Type Department Care Team (Late st Contact Info) Description 06/11/2024 11:10 AM EST Laboratory Laboratory [facility] [address] [place] [phone] [facility] [address] [place] [address] Arrived Allergies Active Allergy Reactions Criticality Noted Date Comments Benzalkonium Chloride 02/21/2015 Merthiolate "the orange kind" Caused a rash Milk (Cow) Diarrhea 02/05/2015 documented as of this encounter (statuses as of 06/11/2024) Medications ALEVE 220 MG PO CAPS as needed Active Fluticasone Propionate 50 MCG/ACT Nasal Suspension Administer 1 [place] into nostril in the morning. Active FIBER [...] morning. 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 [address] [address] [address] 06/19/2024 1:45 PM EST Scheduled Telephone Neurology Nathan [address] [place] [address] Neuromuscular, Phone Nurse Neuro [address] [facility] [address] [address] [address] 06/26/2024 11:00 AM EST Hem/Onc Treatment Hematology/Oncology Treatment, [place] [address] [place] [phone] Krista, Chair 6 Hem Onc Scenery 200 [place] [address] 07/03/2024 9:00 AM EST Hem/Onc Treatment Hematology/Oncology Treatment, [place] 200 [place] [phone] Krista, Chair 3 Hem Onc Scenery 200 [facility] [place], [place] [address] 07/10/2024 9:00 AM EST Hem/Onc Treatment Hematology/Oncology Treatment, [place] 200 [place] [address] Krista, Chair 3 Hem Onc Scenery [address] [facility] [place] [address] 07/17/2024 9:00 AM EST Hem/Onc Treatment Hematology/Oncology Treatment, [place] 200 [place] [phone] Krista, Chair 3 Hem Onc Scenery [address] [facility] [place], [place] [address] 07/25/2024 11:00 AM EST Office Visit Neurology Nathan [address] [place] [address] Maksim Wright MD [address] [facility] [place] [id number] 09/13/2024 11:20 AM EDT Office Visit Family Practice [facility] [address] [place], [place] [address] Theresa Johnson MD [address] [place], [place] [address] 12/11/2024 11:15 AM EDT Office Visit Urology, [facility] 132 [place] [address] Ramesh Phan MD [address] [place] [address] [address] 05/30/2025 11:15 AM EST Office Visit Dermatology Iam [address] [place] 200 [facility] [place] [address] Marshall Henson MD [address] [facility] [place] [address] Scheduled Procedures Name Priority Associated Diagnoses Date/Ti [...] this encounter Medical Devices Implanted Type Area Candle Molder Hand Device Identifier Shelf Expiration Date Model / Serial / Lot Port Powerflow 9.6fr - [id number] Implanted:Qty : 1 on 03/15/2023 at [email or web address] CR BARD : PERIPHERAL VASCULAR [id number] 10/21/2023 [id number] / / [id number] Power Port 8fr Sngl Lumen Plas - [id number] Implanted:Qty : 1 on 03/15/2023 at [facility] CR BARD : PERIPHERAL VASCULAR [id number] 03/22/2024 [id number] / / [id number] Lens Li61ao 13.00mm 18.00 - [id number] - [id number] Implanted:Qty : 1 on 02/02/2024 by Andre Swartz MD at [facility] Right: Eye [employer]CH [employer]OM[employer] 08/20/2028 [id number] / [id number] / [id number] Lens Li61ao 13.00mm 17.50 - [id number] - [id number] Implanted:Qty : 1 on 02/16/2024 by Andre Swartz MD at [facility] Left: Eye BAUSCH & LOMB 07/20/2028 [id number] / [id number] / [id number] documented as of this encounter Advance Directives Documents on File Type Date Recorded Patient Dry House Tender Expl anation Power of Scientist Propagator 06/20/2018 POWER OF A TTORNEY POA: EDEL- [...] Power of Attor ephraim? No Care Teams Chief Cruiser Relationship Specialty Start Date End Date Theresa Johnson MD [address] [place] [address], [place] [address] PCP - General Family Medicine 12/19/23 documented as of this encounter
--- OUTSIDE RECORDS SUMMARY | 2024-06-23 06:12 | External Medical Summary | Summary of Care ---
Author Name Unknown Organization [facility] Address [address] [facility] [address] Phone [phone] Care Team Providers Care Surveillance Sensor Officer Name Role Phone Theresa Johnson MD Primary Care Provider [phone] Reason for Visit * Reason Comments Dosage Adjustment Via Phone (anticoag Cl inic) Encounter Details Date Type Department Care Team (Late st Contact Info) Description 06/08/2024 9:00 AM EST Telemedicine Neurology Nathan Lawson [address] [place] [phone] Nathan, Pharmacist Neurology [address] [place] [address] Myasthenia gravis (HCC)* Allergies Active Allergy Reactions Criticality Noted Date Comments Benzalkonium Chloride 02/21/2015 Merthiolate "the orange kind" Caused a rash Milk (Cow) Diarrhea 02/05/2015 documented as of this encounter (statuses as of 06/08/2024) Medications ALEVE 220 MG PO CAPS as needed Active Fluticasone Propionate 50 MCG/ACT Nasal Suspension Administer 1 [place] into nostril in the morning. Active FIBER [...] the morning. 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 Patient Symptom Assessment [facility] Neurology Patient location: HOME. I was in a hospital or clinic location. After connecting through Heyoo,patient was verified with two unique identifiers. Patient (or authorized legal sales representative metals) was then informed that this was a Telemedicine visit and being conducted confidentially over secure lines. Methods to assure confidentiality were taken. Patient acknowledged consent and understanding of pr ivacy and security of the Telemedicine visit. The patient agreed to participate. Time spent youth corrections officer: 5 minutes. Vyvgart Dosing - Cycle 1 -09/16/23, 09/23/23, 09/30/23 , 10/07/23 Cycle 2- 11/14/23, 11/21/23, 11/28/23, 12/05/23 Cycle 3- 01/12/24, 01/19/24, 01/26/24, 02/01/24 Cycle 4 - 03/12/24, 03/19/24, 03/26/24, 04/02/24 Cycle 5 - 05/03/24, 05/11/24, 05/21/24, 05/28/24 Baseline MG-ADL completed on 09/02/23: 6 MG-ADL on 06/08/24 Talkin Chewin Swallowin Breathin - patient does go to gym and Impairment of ability to brush teeth of comb hair: 0 Impairment of ability to arise from chair: 1 Double vision: 1 Eyelid droop: 2 Total Score: 5 Patient feels he is about the same as last week, trying to do a little more. Patient started volunteering again. Feels that he has more eye fatigue and overall fatigue in general, especially after volunteering for half of a day yesterday. He is also unsure if this is eye strain related to looking at the computer screen. Plan to re-dose 53 days from start of previous cycle based on past response, so start of next cyclearound 06/25/24. Orders placed and patient already scheduled for first dose on 06/26/24. Patient was advised to contact the clinic in the meantime with any questions or concerns. Follow up: one week follow up completion of MG-ADL, also make sure he got his updated prednisone script (he requested 10 mg tabs, will run out of 5 mg in about a week) Cesia Moeller Medication Therapy Disease Management (MTDM) Neurology Clinical Pharmacist 06/08/2024, 9:45 AM documented in this encounter Plan of Treatment Upcoming Encounters Date Type Department Care Team (Late st Contact Info) Description 06/15/2024 9:00 AM EST Telemedicine Neurology Nathan [address] [place] [phone] Nathan, Pharmacist Neurology 100 [facility] [place] [address] 06/26/2024 11:00 AM EST Hem/Onc Treatment Hematology/Oncology Treatment, [place] [address] [facility] [place] [address] Krista, Chair 6 Hem Onc Scenery [address] [id number] 07/03/2024 9:00 AM EST Hem/Onc Treatment Hematology/Oncology Treatment, [place] 200 [facility] [place] [address] Krista, Chair 3 Hem Onc Scenery [address] [place], [place] [address] 07/10/2024 9:00 AM EST Hem/Onc Treatment Hematology/Oncology Treatment, [place] 200 [place] [address] Park, Chair 3 Hem Onc [facility] 200 [facility] [place] [address] 07/17/2024 9:00 AM EST Hem/Onc Treatment Hematology/Oncology Treatment, [place] 200 [place] [address] Krista, Chair 3 Hem Onc [facility] 200 [facility] [place] [address] 07/25/2024 11:00 AM EST Office Visit Neurology Nathan [address] [place] [address] Maksim Wright MD [address] [facility] [place] [phone] 09/13/2024 11:20 AM EDT Office Visit Family Practice [facility] 200 [facility] [place] [address] Theresa Johnson MD 200 [facility] [place], [place] [address] 12/11/2024 11:15 AM EDT Office Visit [facility] 132 [facility] [place] [address] Ramesh Phan MD [address] [place] [address] 05/30/2025 11:15 AM EST Office Visit Dermatology [facility] 200 [facility] [place] [address] Marshall Henson MD 200 [facility] [place] [address] Scheduled Procedures Name Priority Associated Diagnoses Date/Ti [...] this encounter Medical Devices Implanted Type Area Chainstitch Tunnel Elastic Operator Device Identifier Shelf Expiration Date Model / Serial / Lot Port Powerflow 9.6fr - [id number] Implanted:Qty : 1 [facility] CR BARD : PERIPHERAL VASCULAR [id number] 10/21/2023 [id number] / / [id number] Power Port 8fr Sngl Lumen Plas - [id number] Implanted:Qty : 1 on [facility] CR BARD : PERIPHERAL VASCULAR [id number] 03/22/2024 [id number] / / [id number] Lens Li61ao 13.00mm 18.00 - [id number] - [id number] Implanted:Qty : 1 on 02/02/2024 by Andre Swartz MD at [facility] Right: Eye BAUSCH [employer] LOMB 08/20/2028 [id number] / [id number] / [id number] Lens Li61ao 13.00mm 17.50 - [id number] - [id number] Implanted:Qty : 1 on 02/16/2024 by Andre Swartz MD at [facility] Left: Eye BAUSCH & LOMB 07/20/2028 [id number] / [id number] / [id number] documented as of this encounter Visit Diagnoses Diagnosis Myasthenia gravis (HCC)- Primary Myasthenia gravis without exacerbation documented in this encounter Advance Directives Documents on File Type Date Recorded Patient Nuclear Equipment Operator Expl anation Power of Aquatic Centre Manager 06/20/2018 POWER OF A TTORNEY POA: EDEL- [...] patient have Health Care Power of Attor ephriam? No * Full Code Date Activated Date Inactivated Comments 02/02/2024 9:01 AM 02/02/2024 3:23 PM This order r eflects the patients wishes and were consensually agreed upon. Question Answer Comments Discussion of Advance Directives occurred with: Patient Does the patient have a Living Will? No Does the patient have Health Care Power of Attor ephraim? No Care Teams Surveillance Sensor Officer Relationship Specialty Start Date End Date Theresa Johnson MD [address] [place] [address] PCP - General Family Medicine 12/19/23 documented as of this encounter
--- OUTSIDE RECORDS SUMMARY | 2024-06-23 06:12 | External Medical Summary | Summary of Care ---
Author Name Unknown Organization [facility] Address [address] [place] [address] Phone [phone] Care Team Providers Care Superintendent House Name Role Phone Theresa Johnson MD Primary Care Provider Reason for Visit * Reason Onset Date Comments Precert Future 06/01/2024 vyvgart Encounter Details Date Type Department Care Team (Late st Contact Info) Description 06/01/2024 Telephone Neurology [address] [place] [phone] Babita Olvera, DNP [address] [place] [address] Precert Future (vyvgart) Allergies Active Allergy Reactions Criticality Noted Date Comments Benzalkonium Chloride 02/21/2015 Merthiolate "the orange kind" Caused a rash Milk (Cow) Diarrhea 02/05/2015 documented as of this encounter (statuses as of 06/07/2024) Medications ALEVE 220 MG PO CAPS as needed Active Fluticasone Propionate 50 MCG/ACT Nasal Suspension Administer 1 [place] into nostril in the morning. 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 on file Not on file Not on file documented as of this encounter Miscellaneous Notes * Telephone Encounter - Ro Cosby OSA [...] --- Protocol: SCP - EFGARTIGIMOD ONEYDA (VYVGART) [id number] --- Drug to be Infused: Vyvgart --- [...] [place] [phone] Nathan, Pharmacist Neurology [address] [place] [address] [place] [id number] 07/25/2024 11:00 AM EST Office Visit Neurology Nathan Lawson [address] [place], [place] [phone] Maksim Wright MD [address] [place] [address] 09/13/2024 11:20 AM EDT Office Visit Family Practice [facility] [address] [place] [address] Theresa Johnson MD 200 [place] [address] 12/11/2024 11:15 AM EDT Office Visit Urology, [facility] 132 [facility] [place] [address] Ramesh Phan MD [address] [place] [address] 05/30/2025 11:15 AM EST Office Visit Dermatology [facility] [address] [place] [address] Marshall Henson MD [facility] [place] [address] Scheduled Procedures Name Priority Associated Diagnoses Date/Ti [...] this encounter Medical Devices Implanted Type Area Electrophysiology Scientist Device Identifier Shelf Expiration Date Model / Serial / Lot Port Powerflow 9.6fr - [id number] Implanted:Qty : 1 on 03/15/2023 at [facility] CR BARD : PERIPHERAL VASCULAR [id number] 10/21/2023 [id number] / / [id number] Power Port 8fr Sngl Lumen Plas - [id number] Implanted:Qty : 1 on 03/15/2023 at [facility] CR BARD : PERIPHERAL VASCULAR [id number] 03/22/2024 [id number] / / [id number] Lens Li61ao 13.00mm 18.00 - [id number] - [id number] Implanted:Qty : 1 on 02/02/2024 by Andre Swartz MD at [facility] Right: Eye BAUSCH & LOMB 08/20/2028 [id number] / [id number] / [id number] Lens Li61ao 13.00mm 17.50 - [id number] - [id number] Implanted:Qty : 1 on 02/16/2024 by Andre Swartz MD at [facility] Left: Eye BAUSCH & LOMB 07/20/2028 [id number] / [id number] / [id number] documented as of this encounter Visit Diagnoses Diagnosis Myasthenia gravis (HCC) Myasthenia gravis without exacerbation documented in this encounter Advance Directives Documents on File Type Date Recorded Patient Manager Of Program Expl anation Power of Occupational Medicine Officer 06/20/2018 POWER OF A TTORNEY POA: EDEL- [...] Power of Attor ephraim? No Care Teams Superintendent House Relationship Specialty Start Date End Date Theresa Johnson MD [address] [place] [address] PCP - General Family Medicine 12/19/23 documented as of this encounter
--- OUTSIDE RECORDS SUMMARY | 2024-06-23 06:12 | External Medical Summary ---
Author Name Unknown Address Unknown Organization K09:[facility] [address] [place] [address] Laboratory Report Ordering Provider Test Date Status SAMUEL BENTON 06/11/2024 11:14:15 Final Observation Date Value Abnormality Reference (Units ) Status SYNC LEUKOCYTES IN BLOOD BY AUTOMATED COUNT 06/11/2024 11:14:15 11.44 Above high normal 4.00-10.80 (K/uL) Final Segs 06/11/2024 11:14:15 85.6 Above high normal 40.0-75.0 (%) Final Lymphs % 06/11/2024 11:14:15 8.9 Below low normal 18.0-42.0 (%) Final Monos 06/11/2024 11:14:15 4.5 1.0-11.0 (%) Final Eosinophils 06/11/2024 11:14:15 0.7 0.0-6.0 (%) Final Basos 06/11/2024 11:14:15 0.3 0.0-2.0 (%) Final Absolute Segs 06/11/2024 11:14:15 9.79 Above high normal 1.80-7.70 (K/uL) Final Lymphs, absolute 06/11/2024 11:14:15 1.02 1.00-4.80 (K/ul) Final Monos, Abs 06/11/2024 11:14:15 0.51 0.00-1.10 (K/uL) Final Eos, Abs 06/11/2024 11:14:15 0.08 0.00-0.70 (K/uL) Final Basos, Abs 06/11/2024 11:14:15 0.04 0.00-0.20 (K/uL) Final Performing Location [facility] [address] [place] [address]
--- OUTSIDE RECORDS SUMMARY | 2024-06-23 06:12 | External Medical Summary | Summary of Care ---
Author Name Unknown Organization [facility] Address [address] [place] [address] Phone [phone] Care Team Providers Care Plastic Tool Maker Name Role Phone Theresa Johnson MD Primary Care Provider [phone] Reason for Visit * Reason Onset Date Comments Precert Future 06/01/2024 vyvgart Encounter Details Date Type Department Care Team (Late st Contact Info) Description 06/01/2024 Telephone Neurology [address] [place] [phone] Babita Olvera, DNP [address] [place] [address] Precert Future (vyvgart) Allergies Active Allergy Reactions Criticality Noted Date Comments Benzalkonium Chloride 02/21/2015 Merthiolate "the orange kind" Caused a rash Milk (Cow) Diarrhea 02/05/2015 documented as of this encounter (statuses as of 06/11/2024) Medications ALEVE 220 MG PO CAPS as needed Active Fluticasone Propionate 50 MCG/ACT Nasal Suspension Administer 1 [place] into nostril in the morning. 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 documented in this encounter Plan of Treatment Upcoming Encounters Date Type Department Care Team (Late st Contact Info) Description 06/15/2024 9:00 AM EST Telemedicine Neurology Nathan [address] [place], [place] [address] Nathan, Pharmacist Neurology [address] [place], [place] [id number] 06/19/2024 1:45 PM EST Scheduled Telephone Neurology [address] [place] [address] Neuromuscular, Phone Nurse Neuro [address] [place] [address] 06/26/2024 11:00 AM EST Hem/Onc Treatment Hematology/Oncology Treatment, [address] [place] [address] Krista, Chair 6 Hem Onc [address] [place] [address] 07/03/2024 9:00 AM EST Hem/Onc Treatment Hematology/Oncology Treatment, [address] [place] [address] Krista, Chair 3 Hem Onc [address] [place], [place] [address] 07/10/2024 9:00 AM EST Hem/Onc Treatment Hematology/Oncology Treatment, [address] [place] [phone] Krista, Chair 3 Hem Onc [facility] 200 [facility] [place] [address] 07/17/2024 9:00 AM EST Hem/Onc Treatment Hematology/Oncology Treatment, [place] 200 [place] [address] Krista, Chair 3 Hem Onc [facility] [address] [place] [address] 07/25/2024 11:00 AM EST Office Visit Neurology Nathan Lawson [address] [place] [address] Maksim Wright MD 100 [address] [facility] [place] [address] 09/13/2024 11:20 AM EDT Office Visit Family Practice [facility] [address] [place] [address] Theresa Johnson MD [address] [place], [place] [address] 12/11/2024 11:15 AM EDT Office Visit Urology, [facility] 132 [facility] [place] [address] Ramesh Phan MD [address] [place] [address] 05/30/2025 11:15 AM EST Office Visit Dermatology [facility] [address] [place] [address] Marshall Henson MD [address] [place] [address] Scheduled Procedures Name Priority Associated Diagnoses Date/Ti [...] this encounter Medical Devices Implanted Type Area Vice President Pharmacy Device Identifier Shelf Expiration Date Model / Serial / Lot Port Powerflow 9.6fr - [id number] Implanted:Qty : 1 on 03/15/2023 at [facility] CR BARD : PERIPHERAL VASCULAR [id number] 10/21/2023 [id number] / / [id number] Power Port 8fr Sngl Lumen Plas - [id number] Implanted:Qty : 1 on 03/15/2023 at [facility] CR BARD : PERIPHERAL VASCULAR [id number] 03/22/2024 [id number] / / [id number] Lens Li61ao 13.00mm 18.00 - [id number] - [id number] Implanted:Qty : 1 on 02/02/2024 by Andre Swartz MD at [facility] Right: Eye BAUSCH & LOMB 08/20/2028 [id number] / [id number] / [id number] Lens Li61ao 13.00mm 17.50 - [id number] - [id number] Implanted:Qty : 1 on 02/16/2024 by Andre Swartz MD at [facility] Left: Eye BAUSCH & LOMB 07/20/2028 [id number] / [id number] / [id number] documented as of this encounter Visit Diagnoses Diagnosis Myasthenia gravis (HCC) Myasthenia gravis without exacerbation documented in this encounter Advance Directives Documents on File Type Date Recorded Patient Map Drafter Expl anation Power of Travel Insurance Agent 06/20/2018 POWER OF A TTORNEY POA: EDEL- [...] Power of Attor ephraim? No Care Teams Plastic Tool Maker Relationship Specialty Start Date End Date Theresa Johnson MD 200 [place] [address] PCP - General Family Medicine 12/19/23 documented as of this encounter
--- OUTSIDE RECORDS SUMMARY | 2024-06-23 06:12 | External Medical Summary | Summary of Care ---
Author Name Unknown Organization [facility] Address [address] [place] [address] Phone [phone] Care Team Providers Care Regional Sales Engineer Name Role Phone Theresa Johnson MD Primary Care Provider [phone] Reason for Visit * Reason Onset Date Comments Precert Future 06/01/2024 vyvgart Encounter Details Date Type Department Care Team (Late st Contact Info) Description 06/01/2024 Telephone [address] [place] [phone] Babita Olvera, DNP [address] [place] [address] Precert Future (vyvgart) Allergies Active Allergy Reactions Criticality Noted Date Comments Benzalkonium Chloride 02/21/2015 Merthiolate "the orange kind" Caused a rash Milk (Cow) Diarrhea 02/05/2015 documented as of this encounter (statuses as of 06/07/2024) Medications ALEVE 220 MG PO CAPS as needed Active Fluticasone Propionate 50 MCG/ACT Nasal Suspension Administer 1 [place] into nostril in the morning. 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 * Telephone Encounter - Anette Tanner [facility] - 06/01/2024 9:16 AM EST Placed SCP for next Vyvgart cycle to begin 06/25/24 (53 days from start of previous cycle). Plan New Supportive Care Plan Treatment Ordered By: Other --- Protocol: SCP - EFGARTIGIMOD ONEYDA (VYVGART) 1317089 --- Drug to be Infused: Vyvgart --- Dose: 10 mg/kg (max 1200 mg) every week x4 weeks --- Frequency: 10 mg/kg (max 1200 mg) every week x4 ... documented in this encounter Plan of Treatment Upcoming Encounters Date Type Department Care Team (Late st Contact Info) Description 06/08/2024 9:00 AM EST Telemedicine Neurology Nathan [address] [place] [address] Nathan, Pharmacist Neurology [address] [facility] [place] [id number] 06/26/2024 11:00 AM EST Hem/Onc Treatment Hematology/Oncology Treatment, [place] [address] [place] [address] Krista, Chair 6 Hem Onc Scenery [address] [place] [address] 07/03/2024 9:00 AM EST Hem/Onc Treatment Hematology/Oncology Treatment, [place] [address] [facility] [place] [address] Krista, Chair 3 Hem Onc Scenery [address] [place] [address] 07/10/2024 9:00 AM EST Hem/Onc Treatment Hematology/Oncology Treatment, [place] [address] [facility] [place] [address] Krista, Chair 3 Hem Onc Scenery [address] [place] [address] 07/17/2024 9:00 AM EST Hem/Onc Treatment Hematology/Oncology Treatment, [place] [address] [facility] [place] [address] Krista, Chair 3 Hem Onc Scenery [address] [place] [address] 07/25/2024 11:00 AM EST Office Visit Neurology Nathan [address] [place] [address] Maksim Wright MD [address] [facility] [id number] 09/13/2024 11:20 AM EDT Office Visit Family Practice [facility] [address] [place] [address] Theresa Johnson MD 200 [facility] [place] [address] 12/11/2024 11:15 AM EDT Office Visit Urology, [facility] [address] [facility] [place] [address] Ramesh Phan MD [address] [place] [address] 05/30/2025 11:15 AM EST Office Visit Dermatology [facility] [address] [place] [address] Marshall Henson MD 200 [facility] [place] [address] Scheduled Procedures Name Priority Associated Diagnoses Date/Ti [...] this encounter Medical Devices Implanted Type Area Electric Bath Attendant Device Identifier Shelf Expiration Date Model / Serial / Lot Port Powerflow 9.6fr - [id number] Implanted:Qty : 1 on 03/15/2023 at [facility] CR BARD : PERIPHERAL VASCULAR [id number] 10/21/2023 [id number] / / [id number] Power Port 8fr Sngl Lumen Plas - [id number] Implanted:Qty : 1 on 03/15/2023 at [facility] CR BARD : PERIPHERAL VASCULAR [id number] 03/22/2024 [id number] / / [id number] Lens Li61ao 13.00mm 18.00 - [id number] - [id number] Implanted:Qty : 1 on 02/02/2024 by Andre Swartz MD at [facility] Right: Eye BAUSCH & LOMB 08/20/2028 [id number] / [id number] / [id number] Lens Li61ao 13.00mm 17.50 - [id number] - [id number] Implanted:Qty : 1 on 02/16/2024 by Andre Swartz MD at [facility] Left: Eye BAUSCH & LOMB 07/20/2028 [id number] / [id number] / [id number] documented as of this encounter Visit Diagnoses Diagnosis Myasthenia gravis (HCC) Myasthenia gravis without exacerbation documented in this encounter Advance Directives Documents on File Type Date Recorded Patient Stator Connector Expl anation Power of Director Mission 06/20/2018 POWER OF A TTORNEY POA: EDEL- [...] Power of Attor ephraim? No Care Teams Regional Sales Engineer Relationship Specialty Start Date End Date Theresa Johnson MD 200 [facility] [place] [address] PCP - General Family Medicine 12/19/23 documented as of this encounter
--- OUTSIDE RECORDS SUMMARY | 2024-06-23 06:12 | External Medical Summary ---
Author Name Unknown Address Unknown Organization K09[facility] [place] [address] Laboratory Report Ordering Provider Test Date Status SAMUEL BENTON 06/11/2024 11:14:29 Final Observation Date Value Abnormality Reference (Units ) Status Color of Urine by Auto 06/11/2024 11:14:29 Yellow Light Yellow, Yellow, Dark Yellow Final Clarity, Urine 06/11/2024 11:14:29 Clear Clear Final Glucose [Mass/volume] in Urine by Automated test strip 06/11/2024 11:14:29 Negative Negative (mg/dL) Final Bilirubin.total [Presence] in Urine by Automated test strip 06/11/2024 11:14:29 Negative Negative Final Ketones [Mass/volume] in Urine by Automated test strip 06/11/2024 11:14:29 Negative Negative (mg/dL) Final Specific gravity, Urine 06/11/2024 11:14:29 1.015 1.003-1.030 Final Hemoglobin [Presence] in Urine by Automated test strip 06/11/2024 11:14:29 Negative Negative Final pH, Urine 06/11/2024 11:14:29 7.5 5.0-7.5 (Units) Final Protein [Mass/volume] in Urine by Automated test strip 06/11/2024 11:14:29 Negative Negative (mg/dL) Final Urobilinogen [Mass/volume] in Urine by Automated test strip 06/11/2024 11:14:29 0.2 0.2, 1.0 (mg/dL) Final Nitrite [Presence] in Urine by Automated test strip 06/11/2024 11:14:29 Negative Negative Final Leukocyte esterase [Presence] in Urine by Automated test strip 06/11/2024 11:14:29 Negative Negative Final Annotation Comment 06/11/2024 11:14:29 Final Screen negative - Microscopi c not performed. Performing Location [facility] [address] [place] [address]
--- OUTSIDE RECORDS SUMMARY | 2024-06-23 06:12 | External Medical Summary | Summary of Care ---
Author Name Unknown Organization [facility] Address [address] [place] [address] Phone [phone] Care Team Providers Care Energy Control Officer Name Role Phone Theresa Johnson MD Primary Care Provider [phone] Reason for Visit * Reason Onset Date Comments Precert Future 06/01/2024 vyvgart Encounter Details Date Type Department Care Team (Late st Contact Info) Description 06/01/2024 Telephone [address] [place] [address] Babita Olvera, DNP [address] [place] [address] Precert Future (vyvgart) Allergies Active Allergy Reactions Criticality Noted Date Comments Benzalkonium Chloride 02/21/2015 Merthiolate "the orange kind" Caused a rash Milk (Cow) Diarrhea 02/05/2015 documented as of this encounter (statuses as of 06/07/2024) Medications ALEVE 220 MG PO CAPS as needed Active Fluticasone Propionate 50 MCG/ACT Nasal Suspension Administer 1 [place] into nostril in the morning. 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 * Telephone Encounter - rTevor Fernandez OSA - 06/07/2024 9:12 AM EST [...] --- Protocol: SCP - EFGARTIGIMOD ONEYDA (VYVGART) [id number] --- Drug to be Infused: Vyvgart --- Dose: 10 mg/kg (max 1200 mg) every week x4 weeks --- Frequency: 10 mg/kg (max 1200 mg) every week x4 ... documented in this encounter Plan of Treatment Upcoming Encounters Date Type Department Care Team (Late st Contact Info) Description 06/08/2024 9:00 AM EST Telemedicine Neurology N[address] [place] [address] Nathan, Pharmacist Neurology [address] [place] [address] [place] [id number] 07/25/2024 11:00 AM EST Office Visit Neurology Nathan [address] [place], [place] [phone] Maksim Wright MD [address] [place] [address] 09/13/2024 11:20 AM EDT Office Visit Family Practice [facility] [address] [place] [address] Theresa Johnson MD 200 [facility] [place] [address] 12/11/2024 11:15 AM EDT Office Visit Urology, [facility] 132 [facility] [place] [address] Ramesh Phan MD [address] [place] [address] 05/30/2025 11:15 AM EST Office Visit Dermatology [facility] [address] [place] [address] Marshall Henson MD 200 [facility] [place] [address] Scheduled Procedures Name Priority Associated Diagnoses Date/Ti [...] this encounter Medical Devices Implanted Type Area Bottom Brusher Device Identifier Shelf Expiration Date Model / Serial / Lot Port Powerflow 9.6fr - [id number] Implanted:Qty : 1 on 03/15/2023 at [facility] CR BARD : PERIPHERAL VASCULAR [id number] 10/21/2023 [id number] / / [id number] Power Port 8fr Sngl Lumen Plas - [id number] Implanted:Qty : 1 on 03/15/2023 at [facility] CR BARD : PERIPHERAL VASCULAR [id number] 03/22/2024 [id number] / / [id number] Lens Li61ao 13.00mm 18.00 - [id number] - [id number] Implanted:Qty : 1 on 02/02/2024 by Andre Swartz MD at [facility] Right: Eye BAUSCH & LOMB 08/20/2028 [id number] / [id number] / [id number] Lens Li61ao 13.00mm 17.50 - [id number] - [id number] Implanted:Qty : 1 on 02/16/2024 by Andre Swartz MD at [facility] Left: Eye BAUSCH & LOMB 07/20/2028 [id number] / [id number] / [id number] documented as of this encounter Visit Diagnoses Diagnosis Myasthenia gravis (HCC) Myasthenia gravis without exacerbation documented in this encounter Advance Directives Documents on File Type Date Recorded Patient Steel Die Press Set Up Operator Expl anation Power of Branch Service Leader 06/20/2018 POWER OF A TTORNEY POA: EDEL- [...] Power of Attor ephraim? No Care Teams Energy Control Officer Relationship Specialty Start Date End Date Theresa Johnson MD [address] [place] [address] PCP - General Family Medicine 12/19/23 documented as of this encounter
--- OUTSIDE RECORDS SUMMARY | 2024-06-23 06:12 | External Medical Summary | Summary of Care ---
Author Name Unknown Organization [facility] Address [address] [place] [address] Phone [phone] Care Team Providers Care Hem Inspector Name Role Phone Theresa Johnson MD Primary Care Provider [phone] Reason for Visit * Reason Onset Date Comments Precert Future 06/01/2024 vyvgart Encounter Details Date Type Department Care Team (Late st Contact Info) Description 06/01/2024 Telephone [address] [place] [address] Babita Olvera, DNP [address] [place] [address] Precert Future (vyvgart) Allergies Active Allergy Reactions Criticality Noted Date Comments Benzalkonium Chloride 02/21/2015 Merthiolate "the orange kind" Caused a rash Milk (Cow) Diarrhea 02/05/2015 documented as of this encounter (statuses as of 06/11/2024) Medications ALEVE 220 MG PO CAPS as needed Active Fluticasone Propionate 50 MCG/ACT Nasal Suspension Administer 1 [place] into nostril in the morning. 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 Isit ok to proceed with this per insurance? Anette- will check with insurance, if it's ok from their standpoint we can have the patient rescheduled. * Telephone Encounter - Anette Tanner RPh [...] available. Thanks! * Telephone Encounter - Anette Tnaner RP - 06/01/2024 9:16 AM EST Placed SCP for next Vyvgart cycle to begin 06/25/24 (53 days from start of previous cycle). Plan New Supportive Care Plan Treatment Ordered By: Other --- Protocol: SCP - EFGARTIGIMOD ONEYDA (VYVGART) [id number] --- Drug to be Infused: Vyvgart --- [...] Dr [phone] Neto, Pharmacist Neurology [address] [place] [facility] [place] [id number] 06/19/2024 1:45 PM EST Scheduled Telephone Neurology [address] [place] [address] Neuromuscular, Phone Nurse Neuro [address] [facility] [place] [address] 06/26/2024 11:00 AM EST Hem/Onc Treatment Hematology/Oncology Treatment, [place] [address] [place] [address] Krista, Chair 6 Hem Onc Scenery [facility] [id number] 07/03/2024 9:00 AM EST Hem/Onc Treatment Hematology/Oncology Treatment, [place] 200 [place] [phone] Krista, Chair 3 Hem Onc Scenery 200 [facility] [place], [place] [address] 07/10/2024 9:00 AM EST Hem/Onc Treatment Hematology/Oncology Treatment, [place] 200 [place] [address] Krista, Chair 3 Hem Onc [facility] 200 [facility] [place] [address] 07/17/2024 9:00 AM EST Hem/Onc Treatment Hematology/Oncology Treatment, [place] 200 [place] [address] Krista, Chair 3 Hem Onc [facility] 200 [facility] [place], [place] [address] 07/25/2024 11:00 AM EST Office Visit Neurology [address]o [address] [place] [address] Maksim Wright MD [address] [facility] [place] [id number] 09/13/2024 11:20 AM EDT Office Visit Family Practice [facility] [address] [place], [place] [address] Theresa Johnson MD [address] [place] [address] 12/11/2024 11:15 AM EDT Office Visit Urology, [facility] 132 [facility] [place] [address] Ramesh Phan MD [address] [place] [address] 05/30/2025 11:15 AM EST Office Visit Dermatology [facility] [address] [place] [address] Marshall Henson MD [address] [place] [address] Scheduled Procedures Name Priority Associated Diagnoses Date/Ti [...] this encounter Medical Devices Implanted Type Area Land Planner Device Identifier Shelf Expiration Date Model / Serial / Lot Port Powerflow 9.6fr - [id number] Implanted:Qty : 1 on 03/15/2023 at [facility] CR BARD : PERIPHERAL VASCULAR [id number] 10/21/2023 [id number] / / [id number] Power Port 8fr Sngl Lumen Plas - [id number] Implanted:Qty : 1 on 03/15/2023 at [facility] CR BARD : PERIPHERAL VASCULAR [id number] 03/22/2024 [id number] / / [id number] Lens Li61ao 13.00mm 18.00 - [id number] - [id number] Implanted:Qty : 1 on 02/02/2024 by Ander Swartz MD at [facility] Right: Eye BAUSCH & LOMB 08/20/2028 [id number] / [id number] / [id number] Lens Li61ao 13.00mm 17.50 - [id number] - [id number] Implanted:Qty : 1 on 02/16/2024 by Andre Swartz MD at [facility] Left: Eye BAUSCH & LOMB 07/20/2028 [id number] / [id number] / [id number] documented as of this encounter Visit Diagnoses Diagnosis Myasthenia gravis (HCC) Myasthenia gravis without exacerbation documented in this encounter Advance Directives Documents on File Type Date Recorded Patient Lockstitch Machine Operator Expl anation Power of Compliance Specialist 06/20/2018 POWER OF A TTORNEY POA: EDEL- [...] patient have Health Care Power of Attor ephrami? No * Full Code Date Activated Date Inactivated Comments 02/02/2024 9:01 AM 02/02/2024 3:23 PM This order r eflects the patients wishes and were consensually agreed upon. Question Answer Comments Discussion of Advance Directives occurred with: Patient Does the patient have a Living Will? No Does the patient have Health Care Power of Attor ephraim? No Care Teams Hem Inspector Relationship Specialty Start Date End Date Theresa Johnson MD [address] [place] [address] PCP - General Family Medicine 12/19/23 documented as of this encounter
--- OUTSIDE RECORDS SUMMARY | 2024-06-23 06:12 | External Medical Summary | Summary of Care ---
Author Name Unknown Organization [facility] Address [address] [place] [address] Phone [phone] Care Team Providers Care Recruiting Specialist Name Role Phone Theresa Johnson MD Primary Care Provider [phone] Reason for Visit * Reason Comments Dosage Adjustment Via Phone (anticoag Cl inic) Encounter Details Date Type Department Care Team (Late st Contact Info) Description 06/11/2024 7:15 AM [facility] Pharmacy Neurology [address] [place] [address] Nathan, Pharmacist Neurology [address] [place] [address] Myasthenia gravis (HCC)* Allergies Active Allergy Reactions Criticality Noted Date Comments Benzalkonium Chloride 02/21/2015 Merthiolate "the orange kind" Caused a rash Milk (Cow) Diarrhea 02/05/2015 documented as of this encounter (statuses as of 06/11/2024) Medications ALEVE 220 MG PO CAPS as needed Active Fluticasone Propionate 50 MCG/ACT Nasal Suspension Administer 1 [place] into nostril in the morning. Active FIBER [...] morning. 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 Mila spoke with patient and Dr. Wright and plan is to increase prednisone dose and move Vyvgart infusion to 06/22/24 (50 days from start of previous cycle). Message sent to infusion center to reschedule start of cycle for 06/22/24. Will follow up for scheduling updates via RemindMe. Otherwise, follow up for MG-ADL call on 06/15/24 as planned. Anette Tanner RPh Clinical Pharmacist, Neurology Medication Therapy Disease Management 06/11/2024 10:41 AM documented in this encounter Plan of Treatment Upcoming Encounters Date Type Department Care Team (Late st Contact Info) Description 06/15/2024 9:00 AM EST Telemedicine Neurology [address] [place] [address] Nathan, Pharmacist Neurology [address] [place] [address] 06/19/2024 1:45 PM EST Scheduled Telephone Neurology [address] [place] [address] Neuromuscular, Phone Nurse Neuro [address] [place] [address] 06/26/2024 11:00 AM EST Hem/Onc Treatment Hematology/Oncology Treatment, [address] [place] [address] Krista, Chair 6 Hem Onc Scenery 200 [facility] [place], [place] [address] 07/03/2024 9:00 AM EST Hem/Onc Treatment Hematology/Oncology Treatment, [address] [place] [address] Krista, Chair 3 Hem Onc Scenery 200 [facility] [place] [address] 07/10/2024 9:00 AM EST Hem/Onc Treatment Hematology/Oncology Treatment, [address] [place] [address] Krista, Chair 3 Hem Onc Scenery [address] [place] [address] 07/17/2024 9:00 AM EST Hem/Onc Treatment Hematology/Oncology Treatment, [address] [place] [address] Krista, Chair 3 Hem Onc Scenery 200 [facility] [place] [address] 07/25/2024 11:00 AM EST Office Visit Neurology [address] [place], [place] [address] Maksim Wright MD [address] [place] [address] 09/13/2024 11:20 AM EDT Office Visit Family Practice [facility] [address] [place] [address] Theresa Johnson MD 200 [facility] [place] [address] 12/11/2024 11:15 AM EDT Office Visit Urology, [facility] [address] [employer] [place] [address] Ramesh Phan MD [address] [place] [address] 05/30/2025 11:15 AM EST Office Visit Dermatology [facility] [address] [place] [address] Marshall Henson MD 200 [facility] [place] [address] Scheduled Procedures Name Priority Associated Diagnoses Date/Ti [...] this encounter Medical Devices Implanted Type Area Ultrasound Applications Specialist Device Identifier Shelf Expiration Date Model / Serial / Lot Port Powerflow 9.6fr - [id number] Implanted:Qty : 1 on 03/15/2023 at [facility] CR BARD : PERIPHERAL VASCULAR [id number] 10/21/2023 [id number] / / [id number] Power Port 8fr Sngl Lumen Plas - [id number] Implanted:Qty : 1 on 03/15/2023 at [facility] CR BARD : PERIPHERAL VASCULAR [id number] 03/22/2024 [id number] / / [id number] Lens Li61ao 13.00mm 18.00 - [id number] - [id number] Implanted:Qty : 1 on 02/02/2024 by Andre Swartz MD at [facility] Right: Eye BAUSCH & LOMB 08/20/2028 [id number] / [id number] / [id number] Lens Li61ao 13.00mm 17.50 - [id number] - [id number] Implanted:Qty : 1 on 02/16/2024 by Andre Swartz MD at [facility] Left: Eye BAUSCH & LOMB 07/20/2028 [id number] / [id number] / [id number] documented as of this encounter Visit Diagnoses Diagnosis Myasthenia gravis (HCC)- Primary Myasthenia gravis without exacerbation documented in this encounter Advance Directives Documents on File Type Date Recorded Patient Venue Coordinator Expl anation Power of Carbon Coating Machine Operator 06/20/2018 POWER OF A TTORNEY POA: [...] Power of Attor ephraim? No Care Teams Recruiting Specialist Relationship Specialty Start Date End Date Theresa Johnson MD [address] [place] [address] PCP - General Family Medicine 12/19/23 documented as of this encounter
--- OUTSIDE RECORDS SUMMARY | 2024-06-23 06:12 | External Medical Summary | Summary of Care ---
Author Name Unknown Organization [facility] Address [address] [place] [address] Phone [phone] Care Team Providers Care Balloon Pilot Name Role Phone Theresa Johnson MD Primary Care Provider [phone] Reason for Visit * Reason Onset Date Comments Advice 06/07/2024 Encounter Details Date Type Department Care Team (Late st Contact Info) Description 06/07/2024 Telephone Family Practice [facility] [address] [place] [address] Theresa Johnson MD [address] [place] [address] Advice Allergies Active Allergy Reactions Criticality Noted Date Comments Benzalkonium Chloride 02/21/2015 Merthiolate "the orange kind" Caused a rash Milk (Cow) Diarrhea 02/05/2015 documented as of this encounter (statuses as of 06/07/2024) Medications ALEVE 220 MG PO CAPS as needed Active Fluticasone Propionate 50 MCG/ACT Nasal Suspension Administer 1 [place] into nostril in the morning. 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 * Telephone Encounter - Rufina Perkins OSA - 06/07/2024 2:03 PM EST Pt returning call to Paola to schedule his infusions. Please call pt back at [phone]. documented in this encounter Plan of Treatment Upcoming Encounters Date Type Department Care Team (Late st Contact Info) Description 06/08/2024 9:00 AM EST Telemedicine Neurology [address] [place] [phone] Nathan, Pharmacist Neurology [address] [facility] [place] [address] 06/26/2024 11:00 AM EST Hem/Onc Treatment Hematology/Oncology Treatment, [place] [address] [place] [address] Krista, Chair 6 Hem On[address] [facility] [address] 07/25/2024 11:00 AM EST Office Visit Neurology [address] [place] [phone] Maksim Wright MD [address] [facility] [place] [id number] 09/13/2024 11:20 AM EDT Office Visit Family Practice [facility] [address] [place] [address] Theresa Johnson MD [address] [facility] [address] 12/11/2024 11:15 AM EDT Office Visit Urology, [facility] [address] [facility] [place] [address] Ramesh Phan MD [address] [facility] [place] [address] 05/30/2025 11:15 AM EST Office Visit Dermatology [facility] [address] [place] [address] Marshall Henson MD [address] [facility] [address] Scheduled Procedures Name Priority Associated Diagnoses Date/Ti [...] encounter Medical Devices Implanted Type Area Senior Benefits Specialist Device Identifier Shelf Expiration Date Model / Serial / Lot Port Powerflow 9.6fr - [id number] Implanted:Qty : 1 on 03/15/[address] [facility] CR BARD : PERIPHERAL VASCULAR [id number] 10/21/2023 [id number] / / [id number] Power Port 8fr Sngl Lumen Plas - [id number] Implanted:Qty : 1 on 03/15/[address] [facility] CR BARD : PERIPHERAL VASCULAR [id number] 03/22/2024 [id number] / / [id number] Lens Li61ao 13.00mm 18.00 - [id number] - [id number] Implanted:Qty : 1 on 02/02/2024 by Andre Swartz MD at [facility] Right: Eye BAUSCH & LOMB 08/20/2028 [id number] / [id number] / [id number] Lens Li61ao 13.00mm 17.50 - [id number] - [id number] Implanted:Qty : 1 on 02/16/2024 by Andre Swartz MD at [facility] Left: Eye BAUSCH & LOMB 07/20/2028 [id number] / [id number] / [id number] documented as of this encounter Advance Directives Documents on File Type Date Recorded Patient Effervescent Salts Compounder Expl anation Power of Kiln Car Unloader 06/20/2018 POWER OF A TTORNEY POA: EDEL- [...] Power of Attor ephraim? No Care Teams Balloon Pilot Relationship Specialty Start Date End Date Theresa Johnson MD [address] [place] [address] PCP - General Family Medicine 12/19/23 documented as of this encounter
--- OUTSIDE RECORDS SUMMARY | 2024-06-23 06:12 | External Medical Summary | Summary of Care ---
Author Name Unknown Organization [facility] Address [address] [place] [address] Phone [phone] Care Team Providers Care Stunt Person Name Role Phone Theresa Johnson MD Primary Care Provider [phone] Reason for Visit * Reason Onset Date Comments Precert Future 06/01/2024 vyvgart Encounter Details Date Type Department Care Team (Late st Contact Info) Description 06/01/2024 Telephone [address] [place] [phone] Babita Olvera, DNP [address] [place] [address] Precert Future (vyvgart) Allergies Active Allergy Reactions Criticality Noted Date Comments Benzalkonium Chloride 02/21/2015 Merthiolate "the orange kind" Caused a rash Milk (Cow) Diarrhea 02/05/2015 documented as of this encounter (statuses as of 06/07/2024) Medications ALEVE 220 MG PO CAPS as needed Active Fluticasone Propionate 50 MCG/ACT Nasal Suspension Administer 1 [place] into nostril in the morning. 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 Not on file [...] call patient to schedule 3 hour appt "vyvfranckt 05/26" (Dr Maksim Wright)- for 06/25/24 (requested) [...] --- Protocol: SCP - EFGARTIGIMOD ONEYDA (VYVGART) 8751311 --- Drug to be Infused: Vyvgart --- [...] Dr [phone] Nathan, Pharmacist Neurology [address] [place] [address] 07/25/2024 11:00 AM EST Office Visit Neurology Nathan [address] [place] [phone] Maksim Wright MD [address] [place] [address] 09/13/2024 11:20 AM EDT Office Visit [facility] [address] [place] [address] Theresa Johnson MD 200 [place] [address] 12/11/2024 11:15 AM EDT Office Visit Urology, [facility] [address] [facility] [place] [address] Ramesh Phan MD [address] [place] [address] 05/30/2025 11:15 AM EST Office Visit Dermatology [facility] [address] [place] [address] Marshall Henson MD [address] [place] [address] Scheduled Procedures Name Priority Associated Diagnoses Date/Ti [...] this encounter Medical Devices Implanted Type Area Sales Trainee Device Identifier Shelf Expiration Date Model / Serial / Lot Port Powerflow 9.6fr - [id number] Implanted:Qty : 1 on 03/15/2023 at [facility] CR BARD : PERIPHERAL VASCULAR [id number] 10/21/2023 [id number] / / [id number] Power Port 8fr Sngl Lumen Plas - [id number] Implanted:Qty : 1 on 03/15/2023 at [facility] CR BARD : PERIPHERAL VASCULAR [id number] 03/22/2024 [id number] / / [id number] Lens Li61ao 13.00mm 18.00 - [id number] - [id number] Implanted:Qty : 1 on 02/02/2024 by Andre Swartz MD at [facility] Right: Eye BAUSCH & LOMB 08/20/2028 [id number] / [id number] / [id number] Lens Li61ao 13.00mm 17.50 - [id number] - [id number] Implanted:Qty : 1 on 02/16/2024 by Andre Swartz MD at [facility] Left: Eye BAUSCH & LOMB 07/20/2028 [id number] / [id number] / [id number] documented as of this encounter Visit Diagnoses Diagnosis Myasthenia gravis (HCC) Myasthenia gravis without exacerbation documented in this encounter Advance Directives Documents on File Type Date Recorded Patient Marker Machine Expl anation Power of Director Of Market Research 06/20/2018 POWER OF A TTORNEY POA: EDEL- [...] Power of Attor ephraim? No Care Teams Stunt Person Relationship Specialty Start Date End Date Theresa Johnson MD [address] [place] [address] PCP - General Family Medicine 12/19/23 documented as of this encounter
--- OUTSIDE RECORDS SUMMARY | 2024-06-23 06:12 | External Medical Summary | Summary of Care ---
Author Name Unknown Organization [facility] Address [address] [place] [address] Phone [phone] Care Team Providers Care Minister Name Role Phone Theresa Johnson MD Primary Care Provider [phone] Reason for Visit * Reason Onset Date Comments Precert Future 06/01/2024 vyvgart Encounter Details Date Type Department Care Team (Late st Contact Info) Description 06/01/2024 Telephone [address] [place] [phone] Babita Olvera, DNP [address] [place] [address] Precert Future (vyvgart) Allergies Active Allergy Reactions Criticality Noted Date Comments Benzalkonium Chloride 02/21/2015 Merthiolate "the orange kind" Caused a rash Milk (Cow) Diarrhea 02/05/2015 documented as of this encounter (statuses as of 06/07/2024) Medications ALEVE 220 MG PO CAPS as needed Active Fluticasone Propionate 50 MCG/ACT Nasal Suspension Administer 1 [place] into nostril in the morning. 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 documented in this encounter Plan of Treatment Upcoming Encounters Date Type Department Care Team (Late st Contact Info) Description 06/08/2024 9:00 AM EST Telemedicine Neurology Net[address] [place] [phone] Neto, Pharmacist Neurology [address] [place] [address] 07/25/2024 11:00 AM EST Office Visit Neurology Neto [address] [place] [phone] Maksim Wright MD [address] [facility] [place] [address] 09/13/2024 11:20 AM EDT Office Visit [facility] [address] [place] [address] Theresa Johnson MD 200 [facility] [place] [address] 12/11/2024 11:15 AM EDT Office Visit Urology, [facility] [address] [facility] [place] [address] Ramesh Phan MD [address] [place] [address] 05/30/2025 11:15 AM EST Office Visit Dermatology [facility] [address] [place] [address] Marshall Henson MD 200 [facility] [place] [address] Scheduled Procedures Name Priority Associated Diagnoses Date/Ti [...] this encounter Medical Devices Implanted Type Area Shell Reprint Operator Device Identifier Shelf Expiration Date Model / Serial / Lot Port Powerflow 9.6fr - [id number] Implanted:Qty : 1 on 03/15/2023 at [facility] CR BARD : PERIPHERAL VASCULAR [id number] 10/21/2023 [id number] / / [id number] Power Port 8fr Sngl Lumen Plas - [id number] Implanted:Qty : 1 on 03/15/2023 at [facility] CR BARD : PERIPHERAL VASCULAR [id number] 03/22/2024 [id number] / / [id number] Lens Li61ao 13.00mm 18.00 - [id number] - [id number] Implanted:Qty : 1 on 02/02/2024 by Andre Swartz MD at [facility] Right: Eye BAUSCH & LOMB 08/20/2028 [id number] / [id number] / [id number] Lens Li61ao 13.00mm 17.50 - [id number] - [id number] Implanted:Qty : 1 on 02/16/2024 by Andre Swartz MD at [facility] Left: Eye BAUSCH & LOMB 07/20/2028 [id number] / [id number] / [id number] documented as of this encounter Visit Diagnoses Diagnosis Myasthenia gravis (HCC) Myasthenia gravis without exacerbation documented in this encounter Advance Directives Documents on File Type Date Recorded Patient Restaurant Kitchen Manager Expl anation Power of Floor Layer Apprentice 06/20/2018 POWER OF A TTORNEY POA: EDEL- DAUGHTERROBERT-SON * Full Code (Latest Code Status on [...] Power of Attor ephraim? No Care Teams Minister Relationship Specialty Start Date End Date Theresa Johnson MD [address] [place] [address] PCP - General Family Medicine 12/19/23 documented as of this encounter
--- OUTSIDE RECORDS SUMMARY | 2024-06-23 06:12 | External Medical Summary ---
Author Name Unknown Address Unknown Organization K09:[facility] [place] [address] Laboratory Report Ordering Provider Test Date Status SAMUEL BENTON 06/11/2024 11:14:15 Final Observation Date Value Abnormality Reference (Units ) Status WBC, Total 06/11/2024 11:14:15 11.44 Above high normal 4 .00-10.80 (K/uL) Final RBC 06/11/2024 11:14:15 5.23 4.50-5.25 (M/uL) Final Hemoglobin 06/11/2024 11:14:15 16.1 14.0-16.8 (g/dL) Final HCT 06/11/2024 11:14:15 49.0 Above high normal 40 .0-48.4 (%) Final MCV 06/11/2024 11:14:15 93.7 82.0-99.5 (fL) Final MCH 06/11/2024 11:14:15 30.8 27.0-34.0 (pg) Final MCHC 06/11/2024 11:14:15 32.9 32.0-36.0 (g/dL) Final RDW 06/11/2024 11:14:15 13.8 11.5-15.5 (%) Final Platelets 06/11/2024 11:14:15 285 140-400 (K /uL) Final MPV 06/11/2024 11:14:15 10.2 6.6-11.1 ( fL) Final Performing Location [facility] [place] [address]
--- OUTSIDE RECORDS SUMMARY | 2024-06-23 06:12 | External Medical Summary ---
Author Name Unknown Address Unknown Organization K09[facility] [address] [place] [address] Laboratory Report Ordering Provider Test Date Status SAMUEL BENTON 06/11/2024 11:14:15 Final Observation Date Value Abnormality Reference (Units ) Status BUN 06/11/2024 11:14:15 21 Above high normal 6-20 (mg/dL) Final Creatinine 06/11/2024 11:14:15 1.2 0.6-1.2 (mg/dL) Final Glomerular filtration rate/1.73 sq M.predicted [Volume Rate/Area] in Serum, Plasma or Blood by Creatinine-based formula (CKD-EPI) 06/11/2024 11:14:15 66 >=60 (mL/min) Final eGFR is calculated based on the CKD-EPI 2020 equation. Sodium 06/11/2024 11:14:15 144 135-146 (m mol/L) Final Potassium 06/11/2024 11:14:15 4.3 3.5-5.1 (m mol/L) Final Cl 06/11/2024 11:14:15 104 98-107 (mm ol/L) Final CO2 06/11/2024 11:14:15 29 22-32 (mmo l/L) Final Anion gap 06/11/2024 11:14:15 11 7-15 (mmol /L) Final Glucose 06/11/2024 11:14:15 96 70-120 (mg /dL) Final Albumin 06/11/2024 11:14:15 4.8 3.8-5.0 (g /dL) Final AST (Aspartate aminotransferase) 06/11/2024 11:14:15 25 10-50 (U/L) Final Alk Phos 06/11/2024 11:14:15 39 35-130 (U/ L) Final Bilirubin, Total 06/11/2024 11:14:15 0.6 <=1 .2 (mg/dL) Final Calcium 06/11/2024 11:14:15 10.2 8.4-10.2 ( mg/dL) Final Protein 06/11/2024 11:14:15 6.4 6.0-8.3 (g /dL) Final ALT (Alanine aminotransferase) 06/11/2024 11:14:15 24 10-50 (U/L) Final Performing Location [facility] [address] [place] [address]
--- OUTSIDE RECORDS SUMMARY | 2024-06-23 06:13 | External Medical Summary | Summary of Care ---
Author Name Unknown Organization [facility] Address [address] [place] [address] Phone [phone] Care Team Providers Care Tool And Die Maker Apprentice Name Role Phone Theresa Johnson MD Primary Care Provider [phone] Reason for Visit * Episode Based Medications (Routine) - Pending Review Specialty Diagnoses / Procedures Referred By Contlai t Referred To Contact Diagnoses Myasthenia gravis (HCC) Procedures MO INJECTION, EFGARTIGIMOD EVANGELINA-FCAB, 2MG Maksim Wright MD [address] [place] [address] Phone: tel: fax: Hematology/Oncology Treatment, [address] [address] Phone: tel: fax: Referral ID Status Reason Start Date Expiration Date V isits Requested Visits Authorized [id number] Pending Review 11/04/2023 11/03/2024 99 99 Encounter Details Date Type Department Care Team (Latest Contact Info) Description 05/28/2024 9:30 AM EST Hem/Onc Treatment Hematology/Oncology Treatment, [address] [address] Krista, Chair 10 Hem On[address] [address] Myasthenia gravis (HCC)* Allergies Active Allergy Reactions Criticality Noted Date Comments Benzalkonium Chloride 02/21/2015 Merthiolate "the orange kind" Caused a rash Milk (Cow) Diarrhea 02/05/2015 documented as of this encounter (statuses as of 06/01/2024) Medications ALEVE 220 MG PO CAPS as needed Active Fluticasone Propionate 50 MCG/ACT Nasal Suspension Administer 1 [place] into nostril in the morning. Active FIBER [...] Additional Information Patient not taking.Reported on 04/09/2024 Calcium-Vitamin D-Minerals 600-400 MG-UNIT Oral Tablet ChewableIndicati ons:Myasthenia gravis (HCC) Take 1 tablet in the morning daily 30 Tablet 5 3 Active predniSONE 5 MG Oral Tablet (Deltasone) Take 10 mg alternating with 5 mg every other day 45 Tablet 5 4 Active Alendronate Sodium 70 MG Oral Tablet [...] every 3 days. 3 Patch 4 Active Ketoconazole 2 % External CreamIndications :Seborrheic dermatitis Apply to dry skin on forehead, nose once daily 30 g 4 4 Active Mirtazapine 15 MG Oral Tablet (Remeron)Indicat ions:Adjustment insomnia Take 1 Tablet by mouth at bedtime. 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 Vital signs are stable. IV access successful at the right metacarpal vein; positive blood return; IV line flushed with ease; IV fluids connected and infusing. Call garcia within reach. Patient instructed on use of heat and massage functions where applicable. Patient shown how to operate the heat function of the chair and to alert nursing staff if the chair feels too warm. Patient instructed on the risk of potential rodriguez while using the heat function. 1103 Patient completed IV therapy. IV access discontinued; site cleaned and bandaged. Patient discharged in stable condition. documented in this encounter Plan of Treatment Upcoming Encounters Date Type Department Care Team (Late st Contact Info) Description 06/04/2024 11:30 AM EST Office Visit Urology, [facility] [address] [facility] [place] [address] Ramesh Phan MD [address] [place] [address] 06/08/2024 9:00 AM EST Telemedicine Neurology Nathan [address] [place] [phone] Nathan, Pharmacist Neurology [address] [place], [place] [address] 06/22/2024 10:40 AM EST Office Visit Family Practice [facility] [address] [place] [address] Theresa Johnson MD [address] [place] [address] 07/25/2024 11:00 AM EST Office Visit Neurology Nathan [address] [place] [phone] Maksim Wright MD [address] [place] [address] 05/30/2025 11:15 AM EST Office Visit Dermatology [facility] [address] [place] [address] Marshall Henson MD [address] [place] [address] Scheduled Procedures Name Priority Associated Diagnoses Date/Ti [...] this encounter Medical Devices Implanted Type Area Engineering Mgr Device Identifier Shelf Expiration Date Model / Serial / Lot Port Powerflow 9.6fr - [id number] Implanted:Qty : 1 on 03/15/2023 at [facility] CR BARD : PERIPHERAL VASCULAR [id number] 10/21/2023 [id number] / / [id number] Power Port 8fr Sngl Lumen Plas - [id number] Implanted:Qty : 1 on 03/15/2023 at [facility] CR BARD : PERIPHERAL VASCULAR [id number] 03/22/2024 [id number] / / [id number] Lens Li61ao 13.00mm 18.00 - [id number] - [id number] Implanted:Qty : 1 on 02/02/2024 by Andre Swartz MD at [facility] Right: Eye BAUSCH & LOMB 08/20/2028 [id number] / [id number] / [id number] Lens Li61ao 13.00mm 17.50 - [id number] - [id number] Implanted:Qty : 1 on 02/16/2024 by Andre Swartz MD at [facility] Left: Eye BAUSCH & LOMB 07/20/2028 [id number] / [id number] / [id number] documented as of this encounter Visit Diagnoses Diagnosis Myasthenia gravis (HCC)- Primary Myasthenia gravis without exacerbation documented in this encounter Administered Medications Inactive Administered Medications - up to 3 most recent administrations Medication Order MAR Action Action Date Dose Rate Site Efgartigimod evangelina-fcab (Vyvgart) 800 mg in NSS 125 mL infusion 800 mg, IV Piggyback, ONCE, 1 dose, On Tue05/28/24 at 1030, Dose basis = 10 mg/kg In NSS - Note: VOLUME TO BE INFUSED 125 ML Infuse over 1 hour via a 0.2 micron in-line filter; do not administer as IV push or bolus. Following administration, flush entire line with NS.Indications:Myasthenia gravis (HCC) Start Infusion 05/28/2024 9:57 AM EST 800 mg 125 mL/hr NSS infusion Intravenous, at 50 mL/hr, PRN, Starting on Tue05/28/24 at 1030, Until Tue05/28/24 at 1517, Maintenance lineIndications:Myasthenia gravis (HCC) Start Infusion 05/28/2024 9:28 AM EST 50 mL/hr documented in this encounter Advance Directives Documents on File Type Date Recorded Patient Bank Cashier Expl anation Power of Gifted Program Teacher 06/20/2018 POWER OF A TTORNEY POA: EDEL- [...] Power of Attor ephraim? No Care Teams Tool And Die Maker Apprentice Relationship Specialty Start Date End Date Theresa Johnson MD [address] [facility] [place] [address] PCP - General Family Medicine 12/19/23 documented as of this encounter
--- OUTSIDE RECORDS SUMMARY | 2024-06-23 06:13 | External Medical Summary | Summary of Care ---
Author Name Unknown Organization [facility] Address [address] [place] [address] Phone [phone] Care Team Providers Care Career Development Engineer Name Role Phone Theresa Johnson MD Primary Care Provider [phone] Reason for Visit * Reason Onset Date Comments Precert Future 06/01/2024 vyvgart Encounter Details Date Type Department Care Team (Late st Contact Info) Description 06/01/2024 [address]phone [address] [place] [phone] Babita Olvera, DNP [address] [place] [address] Precert Future (vyvgart) Allergies Active Allergy Reactions Criticality Noted Date Comments Benzalkonium Chloride 02/21/2015 Merthiolate "the orange kind" Caused a rash Milk (Cow) Diarrhea 02/05/2015 documented as of this encounter (statuses as of 06/01/2024) Medications ALEVE 220 MG PO CAPS as needed Active Fluticasone Propionate 50 MCG/ACT Nasal Suspension Administer 1 [place] into nostril in the morning. 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 documented in this encounter Plan of Treatment Upcoming Encounters Date Type Department Care Team (Late st Contact Info) Description 06/04/2024 11:30 AM EST Office Visit Urology, [facility] [address] [place] [address] Ramesh Phan MD [address] [place] [address] 06/08/2024 9:00 AM EST Telemedicine Neurology [address] [place] [phone] Nathan, Pharmacist Neurology [address] [place] [address] 06/22/2024 10:40 AM EST Office Visit Family Practice [facility] [address] [place] [address] Theresa Johnson MD 200 [facility] [place] [address] 07/25/2024 11:00 AM EST Office Visit Neurology [address] [place] [phone] Maksim Wright MD [address], [place] [id number] 05/30/2025 11:15 AM EST Office Visit Dermatology [facility] [address] [place] [address] Marshall Henson MD 200 [facility] [place] [address] Scheduled Procedures Name Priority Associated Diagnoses Date/Ti [...] encounter Medical Devices Implanted Type Area Senior Vice President And Chief Information Officer Device Identifier Shelf Expiration Date Model / Serial / Lot Port Powerflow 9.6fr - [id number] Implanted:Qty : 1 on 03/15/2023 at [facility] : PERIPHERAL VASCULAR [id number] 10/21/2023 [id number] / / [id number] Power Port 8fr Sngl Lumen Plas - [id number] Implanted:Qty : 1 on 03/15/2023 at [facility] : PERIPHERAL VASCULAR [id number] 03/22/2024 [id number] / / [id number] Lens Li61ao 13.00mm 18.00 - [id number] - [id number] Implanted:Qty : 1 on 02/02/2024 by Andre Swartz MD at [facility] Right: Eye BAUSCH & LOMB 08/20/2028 [id number] / [id number] / [id number] Lens Li61ao 13.00mm 17.50 - [id number] - [id number] Implanted:Qty : 1 on 02/16/2024 by Andre Swartz MD at [facility] Left: Eye BAUSCH & LOMB 07/20/2028 [id number] / [id number] / [id number] documented as of this encounter Visit Diagnoses Diagnosis Myasthenia gravis (HCC) Myasthenia gravis without exacerbation documented in this encounter Advance Directives Documents on File Type Date Recorded Patient Mechanical Supervisor Expl anation Power of Buttermaker Continuous Churn 06/20/2018 POWER OF A TTORNEY POA: [email or web address]- [...] Power of Attor ephraim? No Care Teams Career Development Engineer Relationship Specialty Start Date End Date Theresa Johnson MD [address] [place] [address] PCP - General Family Medicine 12/19/23 documented as of this encounter
--- OUTSIDE RECORDS SUMMARY | 2024-06-23 06:13 | External Medical Summary | Summary of Care ---
Author Name Unknown Organization [facility] Address [address] [place] [address] Phone [phone] Care Team Providers Care Family Court Justice Name Role Phone Theresa Johnson MD Primary Care Provider [phone] Reason for Visit * Reason Onset Date Comments Precert Future 06/01/2024 vyvgart Encounter Details Date Type Department Care Team (Late st Contact Info) Description 06/01/2024 Telephone [address] [place] [phone] Babita Olvera, DNP [address] [place] [address] Precert Future (vyvgart) Allergies Active Allergy Reactions Criticality Noted Date Comments Benzalkonium Chloride 02/21/2015 Merthiolate "the orange kind" Caused a rash Milk (Cow) Diarrhea 02/05/2015 documented as of this encounter (statuses as of 06/06/2024) Medications ALEVE 220 MG PO CAPS as needed Active Fluticasone Propionate 50 MCG/ACT Nasal Suspension Administer 1 [place] into nostril in the morning. 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 Not on file [...] --- Protocol: SCP - EFGARTIGIMOD ONEYDA (VYVGART) [id number] --- Drug to be Infused: Vyvgart --- [...] Dr [phone] Nathan, Pharmacist Neurology [address] [place] [address] 07/25/2024 11:00 AM EST Office Visit Neurology [address] [place] [phone] Maksim Wright MD [address] [place] [address] 09/13/2024 11:20 AM EDT Office Visit Family Practice [facility] [address] [facility] [place] [address] Theresa Johnson MD [address] [facility] [place] [address] 12/11/2024 11:15 AM EDT Office Visit Urology, [facility] [address] [facility] [place] [address] Ramesh Phan MD [address] [address] 05/30/2025 11:15 AM EST Office Visit Dermatology [facility] [address] [facility] [place] [address] Marshall Henson MD 200 [place] [address] Scheduled Procedures Name Priority Associated Diagnoses Date/Ti [...] this encounter Medical Devices Implanted Type Area Disaster Recovery Specialist Device Identifier Shelf Expiration Date Model / Serial / Lot Port Powerflow 9.6fr - [id number] Implanted:Qty : [facility] : PERIPHERAL VASCULAR [id number] 10/21/2023 [id number] / / [id number] Power Port 8fr Sngl Lumen Plas - [id number] Implanted:Qty : 1 on 03/15/2023 at [facility] : PERIPHERAL VASCULAR [id number] 03/22/2024 [id number] / / [id number] Lens Li61ao 13.00mm 18.00 - [id number] - [id number] Implanted:Qty : 1 on 02/02/2024 by Andre Swartz MD at [facility] Right: Eye BAUSCH & LOMB 08/20/2028 [id number] / [id number] / [id number] Lens Li61ao 13.00mm 17.50 - [id number] - [id number] Implanted:Qty : 1 on 02/16/2024 by Andre Swartz MD at [facility] Left: Eye BAUSCH & LOMB 07/20/2028 [id number] / [id number] / [id number] documented as of this encounter Visit Diagnoses Diagnosis Myasthenia gravis (HCC) Myasthenia gravis without exacerbation documented in this encounter Advance Directives Documents on File Type Date Recorded Patient Car Pick Up Driver Expl anation Power of Rail Director 06/20/2018 POWER OF A TTORNEY POA: EDEL- [...] Power of Attor ephraim? No Care Teams Family Court Justice Relationship Specialty Start Date End Date Theresa Johnson MD 200 [place] [address] PCP - General Family Medicine 12/19/23 documented as of this encounter
--- OUTSIDE RECORDS SUMMARY | 2024-06-23 06:13 | External Medical Summary | Summary of Care ---
Author Name Unknown Organization [facility] Address [address] [facility] [address] Phone [phone] Care Team Providers Care Timber Estimator Name Role Phone Theresa Johnson MD Primary Care Provider [phone] Reason for Visit * Reason Comments Dosage Adjustment Via Phone (anticoag Cl inic) Encounter Details Date Type Department Care Team (Late st Contact Info) Description 06/01/2024 9:00 AM EST Telemedicine Neurology [address] [place] [phone] Nathan, Pharmacist Neurology [address] [place] [address] Myasthenia gravis (HCC)* Allergies Active Allergy Reactions Criticality Noted Date Comments Benzalkonium Chloride 02/21/2015 Merthiolate "the orange kind" Caused a rash Milk (Cow) Diarrhea 02/05/2015 documented as of this encounter (statuses as of 06/01/2024) Medications ALEVE 220 MG PO CAPS as needed Active Fluticasone Propionate 50 MCG/ACT Nasal Suspension Administer 1 [place] into nostril in the morning. 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 Patient Symptom Assessment [facility] Neurology Patient location: HOME. I was in a hospital or clinic location. After connecting through [employer],patient was verified with two unique identifiers. Patient (or authorized legal promotions representative) was then informed that this was a Telemedicine visit and being conducted confidentially over secure lines. Methods to assure confidentiality were taken. Patient acknowledged consent and understanding of pr ivacy and security of the Telemedicine visit. The patient agreed to participate. After connecting to the patient via telephone, the patient was identified by name and date of . Patient was then informed that this was a telephone call only visit. The patient agreed to participate. Visit Disposition: Routine follow-up Total call duration was 7 minutes. Vyvgart Dosing - Cycle 1 -09/16/23, 09/23/23, 09/30/23 , 10/07/23 Cycle 2- 11/14/23, 11/21/23, 11/28/23, 12/05/23 Cycle 3- 01/12/24, 01/19/24, 01/26/24, 02/01/24 Cycle 4 - 03/12/24, 03/19/24, 03/26/24, 04/02/24 Cycle 5 - 05/03/24, 05/11/24, 05/21/24, 05/28/24 Baseline MG-ADL completed on 09/02/23: 6 MG-ADL on 06/01/24: Talkin [place] Swallowin - when lowered steroid dose, felt like all of the food wasn't going down when swallowing Breathin Impairment of ability to brush teeth of comb hair: 0 Impairment of ability to arise from chair: 1 Double vision: 0 Eyelid droop: 2 - states has always been daily but not full closure - stable ptosis Total Score: 4 See 05/21/24 MyG - patient unable to taper prednisone dose. Thought that maybe with the busyness ofthe holidays that this was contributing to his fatigue, however, once things calmed down, he still experienced fatigue. Earlier this week he increased the dose back to 10 mg/day and has noticed improvement in symptoms/fatigue. Notes his eyes still get tired and he has to use eye patch. Still going to the gym. MG-ADL score slightly improved from previous at 4. Will continue monitoring with weekly MG-ADL call. Plan to re-dose 53 days from start of previous cycle based on past response, so start of next cyclearound 06/25/24. Orders placed to prevent delay in scheduling. Patient was advised to contact the clinic in the meantime with any questions or concerns. Follow up: 1 week for MG-ADL call Anette Tanner RPh Clinical Pharmacist, Neurology Medication Therapy Disease Management 06/01/2024 8:08 AM documented in this encounter Plan of Treatment Upcoming Encounters Date Type Department Care Team (Late st Contact Info) Description 06/04/2024 11:30 AM EST Office Visit Urology, [facility] [address] [facility] [place] [address] Ramesh Phan MD [address] [address] 06/08/2024 9:00 AM EST Telemedicine Neurology [address] [place] [phone] Nathan, Pharmacist Neurology [address] [place] [address] [place] [id number] 06/22/2024 10:40 AM EST Office Visit Family Practice [facility] [address] [place] [address] Theresa Johnson MD 200 [place] [address] 07/25/2024 11:00 AM EST Office Visit Neurology Nathan [address] [place] [phone] Maksim Wright MD [address] [facility] [place] [id number] 05/30/2025 11:15 AM EST [facility] [place] [address] [facility] [place] [address] Marshall Henson MD [address] [place] [address] Scheduled Procedures Name Priority Associated Diagnoses Date/Ti [...] this encounter Medical Devices Implanted Type Area Waterworks Operator Device Identifier Shelf Expiration Date Model / Serial / Lot Port Powerflow 9.6fr - [id number] Implanted:Qty : 1 on 03/15/2023 at [facility] : PERIPHERAL VASCULAR [id number] 10/21/2023 [id number] / / [id number] Power Port 8fr Sngl Lumen Plas - [id number] Implanted:Qty : 1 on 03/15/2023 at [facility] CR BARD : PERIPHERAL VASCULAR [id number] 03/22/2024 [id number] / / [id number] Lens Li61ao 13.00mm 18.00 - [id number] - [id number] Implanted:Qty : 1 on 02/02/2024 by Andre Swartz MD at [facility] Right: Eye BAUSCH & LOMB 08/20/2028 [id number] / [id number] / [id number] Lens Li61ao 13.00mm 17.50 - [id number] - [id number] Implanted:Qty : 1 on 02/16/2024 by Andre Swartz MD at [facility] Left: Eye BAUSCH & LOMB 07/20/2028 [id number] / [id number] / [id number] documented as of this encounter Visit Diagnoses Diagnosis Myasthenia gravis (HCC)- Primary Myasthenia gravis without exacerbation documented in this encounter Advance Directives Documents on File Type Date Recorded Patient Document Restorer Expl anation Power of Canvas Shop Laborer 06/20/2018 POWER OF A TTORNEY POA: MAYRA- [...] Power of Attor ephraim? No Care Teams Timber Estimator Relationship Specialty Start Date End Date Theresa Johnson MD [address] [place] [address] PCP - General Family Medicine 12/19/23 documented as of this encounter
--- OUTSIDE RECORDS SUMMARY | 2024-06-23 06:13 | External Medical Summary | Summary of Care ---
Author Name Unknown Organization [facility] Address [address] [facility] [place] [address] Phone [phone] Care Team Providers Care Collection Systems Technician Name Role Phone Keke Johnson MD Primary Care Provider Reason for Visit * Reason Comments Follow Up Encounter Details Date Type Department Care Team (Late st Contact Info) Description 06/04/2024 11:30 AM EST Office Visit Urology, [facility] [address] [facility] [place] [address] Ramesh Phan MD [address] [id number] Prostate cancer (HCC)*; BPH with obstruction/lower urinary tract symptoms Allergies Active Allergy Reactions Criticality Noted Date Comments Benzalkonium Chloride 02/21/2015 Merthiolate "the orange kind" Caused a rash Milk (Cow) Diarrhea 02/05/2015 documented as of this encounter (statuses as of 06/04/2024) Medications ALEVE 220 MG PO CAPS as needed Active Fluticasone Propionate 50 MCG/ACT Nasal Suspension Administer 1 Allyn into nostril in the morning. 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 Patient's past notes are reviewed. Patient's current PSA value has risen since his last visit, highest value to date.He notes his mysathenia gravis is well controlled. He is a for a year. BPH: Patient is being seen for BPH today. He has had the following symptoms: slow stream, hesitancy and incomplete emptying, nocturia x 2-4. Severity is mild. History of low grade CAP on . He has tried tamsulosin. Trial of finasteride in 2020 associated with ED. He has previously had prostate biopsies done. Cystoscopy December 2021 - BPH with early median lobe. Problem has been present for years. Problem is stable. Prostate Cancer: Low volume [place] 3+3 CAP diagnosed Apr 2015. Surveillance biopsy in 2015 and Mar 2019, MRI Feb 2023 negative for cancer. MRI May 2017 - PIRADS 3. MRI Nov 2022 - PIRADS 4 MRI fusion biopsy February 2023: No cancer in all cores. MRI Apr 2024: IMPRESSION Grossly similar presumed BPH nodule in the anterior transitional zone. Exam is assessed as PI-RADS 2. BPH with an estimated prostatic volume of 38 mL. Hematuria: Cysto December [address] scan Nov 2021: IMPRESSION: Heterogeneous mass arising from or impressing the urinary bladder near the trigone. Cystoscopy recommended. PSA Results: Lab Results Component Value Date/Time PSA - [facility] 9.49 (H) 05/25/2024 11:46 AM PSA - [facility] 8.90 (H) 09/13/2023 10:22 AM PSA - [facility] 7.35 (H) 08/26/2023 09:50 AM PSA - [facility] 4.83 (H) 04/10/2020 01:19 PM PSA - [facility] 4.40 (H) 05/26/2018 09:38 AM PSA - [facility] 3.87 05/30/2017 11:10 AM PSA SCREENING 4.78 (H) 02/05/2015 09:14 AM PSA SCREENING 2.29 12/05/2013 07:09 AM PSA SCREENING 2.16 07/01/2011 07:07 AM Current Outpatient Medications Medication Sig Dispense Refill ALEVE 220 MG PO CAPS as needed Fluticasone Propionate 50 MCG/ACT Nasal Suspension Administer 1 Allyn into nostril in the morning. FIBER ADULT GUMMIES 2 g CHEW Take 2 Each by mouth daily. SUMAtriptan Succinate 100 MG Oral Tablet TAKE 1 TABLET AT ONSET OF MIGRAINE. MAY REPEAT IN 2 HOURS BUT NOT MORE. (Patient not taking: Reported on 04/09/2024) 10 Tab 3 Triamcinolone Acetonide 0.5 % External Cream APPLY TO AFFECTED AREAS TWICE DAILY. (Patient not taking: Reported on 04/09/2024) 60 g 1 Calcium-Vitamin D-Minerals 600-400 MG-UNIT Oral Tablet Chewable Take 1 tablet in the morning daily 30 Tablet 5 predniSONE 5 MG Oral Tablet (Deltasone) Take 10 mg alternating with 5 mg every other day 45 Tablet 5 Alendronate Sodium 70 MG Oral Tablet (Fosamax) Take 1 Tablet by mouth once a week. with 8 oz. water30 minutes before first meal of the day. Remain upright for 30 min after taking tablet 12 Tablet 3 Tamsulosin HCl 0.4 MG Oral Capsule (Flomax) Take 1 Capsule by mouth in the morning. 90 Capsule 3 Scopolamine 1 MG/3DAYS Transdermal Patch 72 Hour (Transderm-Scop) Place 1 patch topically on the skin for 72 hours maximum. May replace every 3 days. 3 Patch 0 Ketoconazole 2 % External Cream Apply to dry skin on forehead, nose once daily 30 g 4 Mirtazapine 15 MG Oral Tablet (Remeron) Take 1 Tablet by mouth at bedtime. 90 Tablet 1 No current facility-administered medications for this visit. Review of patient's allergies indicates: Allergen Reactions Merthiolate [Benzalkonium Chloride] Merthiolate "the orange kind" Caused a rash Milk [Milk (Cow)] Diarrhea Social History: Social History Tobacco Use Smoking status: Never Passive exposure: Past Smokeless tobacco: Never Tobacco comments: Mother smoked around as child no current passive smoke exposure Substance Use Topics Alcohol use: Not Currently Comment: occ Vaping/E-Cigarette Use Vaping/E-Cigarette Use Never User Passive Exposure No Counseling Given? No Vaping/E-Cigarette Substances Vaping/E-Cigarette Devices Family History Problem Relation Name Age of Onset Diabetes Mother Heart Disorder Mother pacemaker chf Other (HTN) Mother Neurological Disorder Father dementia [email or web address] Cancer Father colon/bladder Other (PROSTATE CA) Father 60 Neurological Disorder Sister migraine transerse myelitis Breast Cancer Sister Gastro-intestinal disorder Sister hep c-Cured Prostate cancer Uncle (Unspecified) Prostate cancer Uncle (Unspecified) Prostate cancer Uncle (Unspecified) No Known Problems Other No Known Problems Son Past Surgical History: Procedure Laterality Date COLONOSCOPY, DIAGNOSTIC (RECTUM) 04/10/2015 adenomatous & hyperplastic polyps, diverticulosis, repeat 5 yrs/COLONOSCOPY FLEXIBLE PROXIMAL DIAGNOSTIC performed by Anjelica Lucas DO at END[facility]COPY [facility] COLONOSCOPY, DIAGNOSTIC (RECTUM) 05/26/2020 adenomatous polyp, repeat 5 yrs / COLONOSCOPY FLEXIBLE PROXIMAL DIAGNOSTIC performed by Anjelica Lucas DO at ENDOSCOPY [facility] COLONOSCOPY, GI REFERRAL OP 2004 wnl-repeat 10 yrs COLORECTAL CANCER SCREEN;W/FLE 10/1998 wnl DENTAL SURGERY PROCEDURE NEC Dental Surgery Procedure IR APHERESIS ACCESS 03/15/2023 NEEDLE/PUNCH BIOPSY OF PROSTATE 04/21/2015 Prostate,Needle/Punch Biopsy REMOV ELSIE HOMERO JAZMINE ACC DEV,WITH N/A 01/06/2024 REMOVAL OF TUNNELED CENTRAL VENOUS ACCESS DEVICE WITH PORT performed by Osvaldo Aden MD at OR [facility] REMOVE CATARACT, INSERT LENS PROSTH Right 02/02/2024 RIGHT EXTRACAPSULAR CATARACT REMOVAL WITH INTRAOCULAR LENS performed by Andre Swartz MDat OR [facility] REMOVE CATARACT, INSERT LENS PROSTH Left 02/16/2024 LEFT EXTRACAPSULAR CATARACT REMOVAL WITH INTRAOCULAR LENS performed by Andre Swartz MD at OR [facility] REMOVE TONSILS & ADENOIDS, AGE 12+ SKIN LESIONS BIOPSY,ADDED 05/02/2018 chest area basal cell removed by Dr Mejia Past Medical History: Diagnosis Date Allergic disorder Allergy unspecified Allergic rhinitis due to pollen BPH with obstruction/lower urinary tract symptoms 06/30/2011 FAMILY HX MALIG.NEOPLASM PROSTATE 01/19/2001 Migraine Migraines,unspecified Prostate cancer (HCC) 04/28/2015 t1c Small volume sayda 6 Patient Active Problem List Diagnosis Family history of malignant neoplasm of prostate Family history of other cardiovascular diseases Allergic rhinitis due to pollen Headache FH: prostate cancer BPH with obstruction/lower urinary tract symptoms Prostate cancer (HCC) History of basal cell cancer Ptosis of right eyelid Elevated prostate specific antigen (PSA) Double vision Myasthenia gravis (HCC) Facial weakness Diplopia Constitutional: (-) fever and (-) chills Eyes: (+) corrective lenses ENT: (+) headaches Cardiovascular: (-) chest pain Male : see HPI Physical Exam Nursing note reviewed. Constitutional: General: He is not in acute distress. Appearance: Normal appearance. He is not ill-appearing or toxic-appearing. HENT: Head: Normocephalic and atraumatic. Right Ear: External ear normal. Left Ear: External ear normal. Nose: Nose normal. Mouth/Throat: Mouth: Mucous membranes are moist. Eyes: Extraocular Movements: Extraocular movements intact. Cardiovascular: Pulses: Normal pulses. Pulmonary: Effort: Pulmonary effort is normal. No respiratory distress. Abdominal: Palpations: Abdomen is soft. Tenderness: There is no abdominal tenderness. Genitourinary: Comments: 40 gram prostate, flat and smooth, no induration or nodules, no seminal vesicle abnormalities, normal rectal tone. Musculoskeletal: Cervical back: Normal range of motion and neck supple. Lymphadenopathy: Cervical: No cervical adenopathy. Skin: Coloration: Skin is not cyanotic or pale. Neurological: Mental Status: He is alert and oriented to person, place, and time. Psychiatric: Attention and Perception: Attention normal. Mood and Affect: Mood and affect normal. Impression/Plan: 74-year-old male with a history of prostate cancer on active surveillance, rising PSA. Seen the patient's findings, especially his improved MRI report, I think it would be reasonable to provide a trial of finasteride again - no longer sexually active. Will recheck labs in 6 months to check on improvement. No further biopsies at this time. Above content is personally reviewed. Patientvocalizes good understanding of the treatment plan. Ramesh Phan MD 9:02 AM 06/04/2024 documented in this encounter Nursing Notes * Wilma Hwang LPN - 06/04/2024 11:21 AM EST 9 month ret, MRI results. Patient presents alone. Taking tamsulosin. PSA Results: Lab Results Component Value Date/Time PSA - [facility] 9.49 (H) 05/25/2024 11:46 AM PSA - [facility] 8.90 (H) 09/13/2023 10:22 AM PSA - [facility] 7.35 (H) 08/26/2023 09:50 AM PSA - [facility] 4.83 (H) 04/10/2020 01:19 PM PSA - [facility] 4.40 (H) 05/26/2018 09:38 AM PSA - [facility] 3.87 05/30/2017 11:10 AM PSA SCREENING 4.78 (H) 02/05/2015 09:14 AM PSA SCREENING 2.29 12/05/2013 07:09 AM PSA SCREENING 2.16 07/01/2011 07:07 AM documented in this encounter Plan of Treatment Upcoming Encounters Date Type Department Care Team (Late st Contact Info) Description 06/08/2024 9:00 AM EST Telemedicine Neurology [address] [place] [phone] Nathan, Pharmacist Neurology [address] [place] [address] 07/25/2024 11:00 AM EST Office Visit Neurology [address] [place] [phone] Maksim Wright MD [address] [place] [address] 09/13/2024 11:20 AM EDT Office Visit Family Practice [facility] [address] [place] [address] Keke Johnson MD [address] [facility] [place] [address] 12/11/2024 11:15 AM EDT Office Visit Urology, [facility] [address] [facility] [place] [address] Ramesh Phan MD [address] [place] [address] 05/30/2025 11:15 AM EST Office Visit Dermatology [facility] [address] [place] [address] Marshall Henson MD [address] [facility] [place] [address] Scheduled Orders Name Type Priority Associated Diagnoses Orde r Schedule PSA WITH FREE PSA IF INDICATED Lab Routine BPH with obstruction/lower urinary tract symptoms Prostate cancer (HCC) Expected: 12/02/2024 (Approximate), Expires: 06/04/2025 Scheduled Procedures Name Priority Associated Diagnoses Date/Ti me COLONOSCOPY FLEXIBLE PROXIMAL DIAGNOSTIC Recall History of colon polyps Health Maintenance Due Date Last Done Comments Cologuard 01/12/1997 Fecal Occult Blood Test 01/12/1997 Sigmoidoscopy 01/12/1997 Adult Wellness Visit 11/28/2019 11/27/2018 Depression Screening 02/18/2021 02/19/2020 COVID-19 Vaccine (4 - 2024-25 season) 2024 02/23/2024, 07/13/2020, 06/13/2020 Colonoscopy 05/26/2025 [...] this encounter Medical Devices Implanted Type Area Driver Trainer Device Identifier Shelf Expiration Date Model / Serial / Lot Port Powerflow 9.6fr - [id number] Implanted:Qty : 1 on 03/15/2023 at [facility] : PERIPHERAL VASCULAR [id number] 10/21/2023 [id number] / / [id number] Power Port 8fr Sngl Lumen Plas - [id number] Implanted:Qty : 1 on 03/15/2023 at [facility] CR BARD : PERIPHERAL VASCULAR [id number] 03/22/2024 [id number] / / [id number] Lens Li61ao 13.00mm 18.00 - [id number] - [id number] Implanted:Qty : 1 on 02/02/2024 by Andre Swartz MD at [facility] Right: Eye [employer]USCH [employer] LOMB 08/20/2028 [id number] / [id number] / [id number] Lens Li61ao 13.00mm 17.50 - [id number] - [id number] Implanted:Qty : 1 on 02/16/2024 by Andre Swartz MD at OR [facility] Left: Eye BAUSCH & LOMB 07/20/2028 [id number] / [id number] / [id number] documented as of this encounter Visit Diagnoses Diagnosis Prostate cancer (HCC)- Primary Malignant neoplasm of prostate BPH with obstruction/lower urinary tract symptoms Hypertrophy of prostate with urinary obstruction and other lower urinary tract symptoms (LUTS) documented in this encounter [place] Directives Documents on File Type Date Recorded Patient Armature Balancer Expl anation Power of Freight Rate Analyst 06/20/2018 POWER OF A TTORNEY POA: EDEL- [...] Power of Attor ephraim? No Care Teams Collection Systems Technician Relationship Specialty Start Date End Date Keke Johnson MD [address] [place] [address] PCP - General Family Medicine 12/19/23 documented as of this encounter
--- OUTSIDE RECORDS SUMMARY | 2024-06-23 06:13 | External Medical Summary | Summary of Care ---
Author Name Unknown Organization [facility] Address [address] [place] [address] Phone [phone] Care Team Providers Care Repairer Evaporator Name Role Phone Theresa Johnson MD Primary Care Provider [phone] Reason for Visit * Reason Onset Date Comments Precert Future 06/01/2024 vyvgart Encounter Details Date Type Department Care Team (Late st Contact Info) Description 06/01/2024 Telephone [address] [place] [phone] Babita Olvera, DNP [address] [place] [address] Precert Future (vyvgart) Allergies Active Allergy Reactions Criticality Noted Date Comments Benzalkonium Chloride 02/21/2015 Merthiolate "the orange kind" Caused a rash Milk (Cow) Diarrhea 02/05/2015 documented as of this encounter (statuses as of 06/07/2024) Medications ALEVE 220 MG PO CAPS as needed Active Fluticasone Propionate 50 MCG/ACT Nasal Suspension Administer 1 [place] into nostril in the morning. 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- is auth still valid or can [...] Thanks! * Telephone Encounter - Anette Tanner [facility] - 06/01/2024 9:16 AM EST Placed SCP for next Vyvgart cycle to begin 06/25/24 (53 days from start of previous cycle). Plan New Supportive Care Plan Treatment Ordered By: Other --- Protocol: SCP - EFGARTIGIMOD ONEYDA (VYVGART) [id number] --- Drug to be Infused: Vyvgart --- [...] Dr [phone] Nathan, Pharmacist Neurology [address] [place] [address] 07/25/2024 11:00 AM EST Office Visit Neurology Nathan [address] [place] [phone] Maksim Wright MD [address] [place] [address] 09/13/2024 11:20 AM EDT Office Visit Family [facility] [address] [place] [address] [place] [address] Theresa Johnson MD [address] [place] [address] 12/11/2024 11:15 AM EDT Office Visit Urology, [facility] [address] [place] [address] Ramesh Phan MD [address] [place] [address] 05/30/2025 11:15 AM EST Office Visit Dermatology [facility] [address] [facility] [place] [address] Marshall Henson MD [address] [facility] [place] [address] Scheduled Procedures Name Priority Associated Diagnoses Date/Ti [...] this encounter Medical Devices Implanted Type Area Paper Machine Back Tender Device Identifier Shelf Expiration Date Model / Serial / Lot Port Powerflow 9.6fr - [id number] Implanted:Qty : 1 on 03/15/2023 at [facility] CR BARD : PERIPHERAL VASCULAR [id number] 10/21/2023 [id number] / / [id number] Power Port 8fr Sngl Lumen Plas - [id number] Implanted:Qty : 1 on 03/15/2023 at [facility] CR BARD : PERIPHERAL VASCULAR [id number] 03/22/2024 [id number] / / [id number] Lens Li61ao 13.00mm 18.00 - [id number] - [id number] Implanted:Qty : 1 on 02/02/2024 by Andre Swartz MD at [facility] Right: Eye BAUSCH & LOMB 08/20/2028 [id number] / [id number] / [id number] Lens Li61ao 13.00mm 17.50 - [id number] - [id number] Implanted:Qty : 1 on 02/16/2024 by Andre Swartz MD at [facility] Left: Eye BAUSCH & LOMB 07/20/2028 [id number] / [id number] / [id number] documented as of this encounter Visit Diagnoses Diagnosis Myasthenia gravis (HCC) Myasthenia gravis without exacerbation documented in this encounter [place] Directives Documents on File Type Date Recorded Patient Service Dismantler Expl anation Power of Form Drafter 06/20/2018 POWER OF A TTORNEY POA: EDEL- [...] Power of Attor ephraim? No Care Teams Repairer Evaporator Relationship Specialty Start Date End Date Theresa Johnson MD [address] [place] [address] PCP - General Family Medicine 12/19/23 documented as of this encounter
--- OUTSIDE RECORDS SUMMARY | 2024-06-23 06:14 | External Medical Summary | Summary of Care ---
Author Name Unknown Organization [facility] Address [address] [place] [address] Phone [phone] Care Team Providers Care Unit Clerk Name Role Phone Theresa Johnson MD Primary Care Provider [phone] Reason for Visit * Episode Based Medications (Routine) - Authorized Specialty Diagnoses / Procedures Referred By Contlai t Referred To Contact Diagnoses Myasthenia gravis (HCC) Procedures CA INJECTION, EFGARTIGIMOD EVANGELINA-FCAB, 2MG Maksim Wright MD [address] [place] [address] Phone: tel: fax: Hematology/Oncology Treatment, [address] [address] Phone: tel: fax: Referral ID Status Reason Start Date Expiration Date V isits Requested Visits Authorized [id number] Authorized 11/04/2023 11/03/2024 99 99 Encounter Details Date Type Department Care Team (Latest Contact Info) Description 05/28/2024 9:30 AM EST Hem/Onc Treatment Hematology/Oncology Treatment, [address] [place] [phone] Krista, Chair [address] [address] Myasthenia gravis (HCC)* Allergies Active Allergy Reactions Criticality Noted Date Comments Benzalkonium Chloride 02/21/2015 Merthiolate "the orange kind" Caused a rash Milk (Cow) Diarrhea 02/05/2015 documented as of this encounter (statuses as of 05/28/2024) Medications ALEVE 220 MG PO CAPS as needed Active Fluticasone Propionate 50 MCG/ACT Nasal Suspension Administer 1 [place] into nostril in the morning. 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 [address] [facility] [place] [address] Ramesh Phan MD [address] [place] [address] 06/22/2024 10:40 AM EST Office Visit Family Practice [facility] [address] [facility] [place] [address] Theresa Johnson MD [address] [facility] [place] [address] 07/25/2024 11:00 AM EST Office Visit Neurology Nathan [address] [place] [phone] Maksim Wright MD [address] [facility] [place] [id number] Scheduled Procedures Name Priority Associated Diagnoses Date/Ti me COLONOSCOPY FLEXIBLE PROXIMAL DIAGNOSTIC Recall History of colon polyps Health Maintenance Due Date Last Done Comments Cologuard 01/12/1997 Fecal Occult Blood Test 01/12/1997 Sigmoidoscopy 01/12/1997 Adult Wellness Visit 11/28/2019 11/27/2018 Depression Screening 02/18/2021 02/19/2020 COVID-19 Vaccine ( season) 2024 02/23/2024, 07/13/2020, 06/13/2020 Colonoscopy 05/26/2025 05/26/2020, 0 08/2020, 04/10/2015, Additional history exists Colorectal Cancer [...] this encounter Medical Devices Implanted Type Area Road Crew Member Device Identifier Shelf Expiration Date Model / Serial / Lot Port Powerflow 9.6fr - [id number] Implanted:Qty : 1 on 03/15/2023 at [facility] CR BARD : PERIPHERAL VASCULAR [id number] 10/21/2023 [id number] / / [id number] Power Port 8fr Sngl Lumen Plas - [id number] Implanted:Qty : 1 on 03/15/2023 at [facility] CR BARD : PERIPHERAL VASCULAR [id number] 03/22/2024 [id number] / / [id number] Lens Li61ao 13.00mm 18.00 - [id number] - [id number] Implanted:Qty : 1 on 02/02/2024 by Andre Swartz MD at OR [facility] Right: Eye BAUSCH & LOMB 08/20/2028 [id number] / [id number] / [id number] Lens Li61ao 13.00mm 17.50 - [id number] - [id number] Implanted:Qty : 1 on 02/16/2024 by Andre Swartz MD at OR [facility] Left: Eye BAUSCH & LOMB 07/20/2028 [id number] / [id number] / [id number] documented as of this encounter Visit Diagnoses Diagnosis Myasthenia gravis (HCC)- Primary Myasthenia gravis without exacerbation documented in this encounter Administered Medications Active Administered Medications - up to 3 most recent administrations Medication Order MAR Action Action Date Dose Rate Site diphenhydrAMINE (Benadryl) inj 50 mg 50 mg, IV Push, ONCE PRN Other, Hypersensitivity Reaction, Starting on Tue05/28/24 at 0918, Until Tue05/29/24 at 0917, For 24 hoursIndications:Myasthenia gravis (HCC) EPINEPHrine 1 MG/ML inj 0.3 mg 0.3 mg, Intramuscular, ONCE PRN Other, Hypersensitivity Reaction or Anaphylaxis, Starting on Tue05/28/24 at 0918, Until Tue05/29/24 at 0917, For 24 hoursIndications:Myasthenia gravis (HCC) hEParin 100 UNIT/ML Lock Flush inj 500 Units 500 Units (5 mL), IV Lock, PRN Other, IV Flush, Starting on Tue05/28/24 at 0918, Until Tue05/29/24 at 0917, For 24 hours, Do not flush if lock, PICC, or central line not in place; IV infusing or unable to flush.Indications:Myasthenia gravis (HCC) Hydrocortisone Sod Suc (PF) (Solu-Cortef) inj 100 mg 100 mg, IV Push, ONCE PRN Other, Hypersensitivity Reaction, Starting on Tue05/28/24 at 0918, Until Tue05/29/24 at 0917, For 24 hoursIndications:Myasthenia gravis (HCC) NSS infusion Intravenous, at 50 mL/hr, PRN, Starting on Tue05/28/24 at 1030, Until Discontinued, Maintenance lineIndications:Myasthenia gravis (HCC) Start Infusion 05/28/2024 9:28 AM EST 50 mL/hr oxygen GAS Inhalation, OXYGEN, First dose on Tue05/28/24 at 1000, Until Discontinued, Device/Managed by: Low Flow Device, Goal SPO2 (%): 91-95, Starting Device: Nasal Cannula, Initial Flow Rate (LPM): 2, Lowest Support: Nasal Cannula: Flow 0-6 LPM. Titrate up/down by 1 LPM., Higher Support: Non-Rebreather (NRB) Mask: Minimum of 10 LPM. Titrate to maintain bag inflation., Titration Interval: Q2 minutes and as needed., Notify Provider: For sudden DECREASE in resting SPO2 to less than 85% and when escalating delivery device., Wean patient off Oxygen when the oxygen saturation is greater than or equal to 93%Indications:Myasthenia gravis (HCC) sodium chloride 0.9 % flush central line 10 mL 10 mL, IV Push, PRN Other, IV Flush, Starting on Tue05/28/24 at 0918, Until Tue05/29/24 at 0917, For 24 hours, Do not flush if lock, PICC, or central line not in place; IV infusing or unable to flush.Indications:Myasthenia gravis (HCC) Inactive Administered Medications - up to 3 [...] 9:57 AM EST 800 mg 125 mL/hr documented in this encounter Advance Directives Documents on File Type Date Recorded Patient Survival Specialist Expl anation Power of Metal Stamper 06/20/2018 POWER OF A TTORNEY POA: EDEL- [...] Power of Attor ephraim? No Care Teams Unit Clerk Relationship Specialty Start Date End Date Theresa Johnson MD [address] [place] [address] PCP - General Family Medicine 12/19/23 documented as of this encounter
--- OUTSIDE RECORDS SUMMARY | 2024-06-23 06:14 | External Medical Summary | Summary of Care ---
Author Name Unknown Organization [facility] Address [address] [place] [address] Phone [phone] Care Team Providers Care Assistant Pastry Chef Name Role Phone Theresa Johnson MD Primary Care Provider [phone] Reason for Visit * Episode Based Medications (Routine) - Authorized Specialty Diagnoses / Procedures Referred By Contlai t Referred To Contact Diagnoses Myasthenia gravis (HCC) Procedures [place] INJECTION, EFGARTIGIMOD EVANGELINA-FCAB, 2MG Maksim Wright MD [address] [place] [address] Phone: tel: fax: Hematology/Oncology Treatment, [address] [address] Phone: tel: fax: Referral ID Status Reason Start Date Expiration Date V isits Requested Visits Authorized [id number] Authorized 11/04/2023 11/03/2024 99 99 Encounter Details Date Type Department Care Team (Latest Contact Info) Description 05/28/2024 9:30 AM EST Hem/Onc Treatment Hematology/Oncology Treatment, [address] [place] [phone] Krista, Chair [address] [address] Myasthenia gravis (HCC)* Allergies Active Allergy Reactions Criticality Noted Date Comments Benzalkonium Chloride 02/21/2015 Merthiolate "the orange kind" Caused a rash Milk (Cow) Diarrhea 02/05/2015 documented as of this encounter (statuses as of 05/28/2024) Medications ALEVE 220 MG PO CAPS as needed Active Fluticasone Propionate 50 MCG/ACT Nasal Suspension Administer 1 [place] into nostril in the morning. 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 [place] [address] Rmaesh Phan MD [address] [place] [address] 06/22/2024 10:40 AM EST Office Visit Family Practice [facility] [address] [place] [address] Theresa Johnson MD [address] [place] [address] 07/25/2024 11:00 AM EST Office Visit Neurology Nathan [address] [place] [phone] Maksim Wright MD [address] [facility] [place] [id number] Scheduled Procedures Name Priority Associated Diagnoses Date/Ti [...] this encounter Medical Devices Implanted Type Area Catshovel Driver Device Identifier Shelf Expiration Date Model / Serial / Lot Port Powerflow 9.6fr - [id number] Implanted:Qty : 1 on 03/15/2023 at [facility] CR BARD : PERIPHERAL VASCULAR [id number] 10/21/2023 [id number] / / [id number] Power Port 8fr Sngl Lumen Plas - [id number] Implanted:Qty : 1 on 03/15/2023 at [facility] CR BARD : PERIPHERAL VASCULAR [id number] 03/22/2024 [id number] / / [id number] Lens Li61ao 13.00mm 18.00 - [id number] - [id number] Implanted:Qty : 1 on 02/02/2024 by Andre Swartz MD at OR [facility] Right: Eye BAUSCH & LOMB 08/20/2028 [id number] / [id number] / [id number] Lens Li61ao 13.00mm 17.50 - [id number] - [id number] Implanted:Qty : 1 on 02/16/2024 by Andre Swartz MD at OR [facility] Left: Eye BAUSCH & LOMB 07/20/2028 [id number] / [id number] / [id number] documented as of this encounter Visit Diagnoses [...] Documents on File Type Date Recorded Patient Email Marketing Processor Expl anation Power of Food Tester 06/20/2018 POWER OF A TTORNEY POA: EDEL- [...] Power of Attor ephraim? No Care Teams Assistant Pastry Chef Relationship Specialty Start Date End Date Theresa Johnson MD [address] [place] [address] PCP - General Family Medicine 12/19/23 documented as of this encounter
--- OUTSIDE RECORDS SUMMARY | 2024-06-23 06:14 | External Medical Summary | Summary of Care ---
Author Name Unknown Organization [facility] Address [address] [place] [address] Phone [phone] Care Team Providers Care Plane Captain Name Role Phone Theresa Johnson MD Primary Care Provider [phone] Reason for Visit * Reason Comments Infusion Vygart 05/26 * Episode Based Medications (Routine) - Authorized Specialty Diagnoses / Procedures Referred By Contac t Referred To Contact Diagnoses Myasthenia gravis (HCC) Procedures [place] INJECTION, EFGARTIGIMOD EVANGELINA-FCAB, 2MG Maksim Wright MD [address] [place] [address] Phone: tel: fax: Hematology/Oncology Treatment, [address] [address] Phone: tel: fax: Referral ID Status Reason Start Date Expiration Date V isits Requested Visits Authorized [id number] Authorized 11/04/2023 11/03/2024 99 99 Encounter Details Date Type Department Care Team (Latest Contact Info) Description 05/03/2024 9:30 AM EST Hem/Onc Treatment Hematology/Oncology Treatment, [address] [address] Krista, Chair 2 Hem On[address] [address] Myasthenia gravis (HCC)* Allergies Active Allergy Reactions Criticality Noted Date Comments Benzalkonium Chloride 02/21/2015 Merthiolate "the orange kind" Caused a rash Milk (Cow) Diarrhea 02/05/2015 documented as of this encounter (statuses as of 05/03/2024) Medications ALEVE 220 MG PO CAPS as needed Active Fluticasone Propionate 50 MCG/ACT Nasal Suspension Administer 1 [place] into nostril in the morning. 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 90 Capsule 3 4 Active Scopolamine 1 MG/3DAYS Transdermal Patch 72 Hour (Transderm-Scop) Place 1 patch topically on the skin for 72 hours maximum. May replace every 3 days. 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 PIV in R metacarpal. Pt tolerated well. VSS. Patient instructed on use of heat and massage functions where applicable. Patient shown how to operate the heat function of the chair and to alert nursing staff if the chair feels too warm. Patient instructed on the risk of potential rodriguez while using the heat function. Pt have no complaints at this time. 1115: Pt tolerated Vygart infusion well. PIV removed intact. Pt to return in one week. Discharged in stable condition. documented in this encounter Plan of Treatment Upcoming Encounters Date Type Department Care Team (Late st Contact Info) Description 05/04/2024 9:45 AM EST Office Visit Dermatology [facility] [place] [address] [facility] [place] [address] Marshall Henson MD [address] [facility] [place] [address] 05/09/2024 10:30 AM EST Imaging [facility], a service of [address] [place] [id number] 05/11/2024 9:30 AM EST Hem/Onc Treatment Hematology/Oncology Treatment, [place] [facility] [phone] 05/21/2024 10:00 AM EST Hem/Onc Treatment Hematology/Oncology Treatment, [address], [place] [phone] Krista, Chair 3 Hem On[address] [place] [address] 05/28/2024 9:30 AM EST Hem/Onc Treatment Hematology/Oncology Treatment, [place] [facility] [phone] Krista, Chair 10 Hem On[address] [place] [address] 06/01/2024 9:00 AM EST Telemedicine Neurology Nathan [address] [place] [phone] Nathan, Pharmacist Neurology [address] [place] [address] [place] [id number] 06/04/2024 11:30 AM EST Office Visit Urology, [facility] [address] [place] [address] Ramesh Phan MD [address] [place] [address] 06/22/2024 10:40 AM EST Office Visit [facility] [address] [facility] [place] [address] Theresa Johnson MD [address] [facility] [place] [address] 07/25/2024 11:00 AM EST Office Visit Neurology Nathan [address] [place] [phone] Maksim Wright MD [address] [facility] [place] [address] Scheduled Procedures Name Priority Associated Diagnoses Date/Ti [...] Vaccines Completed 03/21/2019, 10/2018, 02/05/2015 Pneumococcal Vaccine: 65+ Years Completed 02/19/2020, 04/21/2017 RETIRED - COLONOSCOPY-EVERY [...] this encounter Medical Devices Implanted Type Area Surface Logging Systems Logger Device Identifier Shelf Expiration Date Model / Serial / Lot Port Powerflow 9.6fr - [id number] Implanted:Qty : 1 on 03/15/2023 at [facility] CR BARD : PERIPHERAL VASCULAR [id number] 10/21/2023 [id number] / / [id number] Power Port 8fr Sngl Lumen Plas - [id number] Implanted:Qty : 1 on 03/15/2023 at [facility] CR BARD : PERIPHERAL VASCULAR [id number] 03/22/2024 [id number] / / [id number] Lens Li61ao 13.00mm 18.00 - [id number] - [id number] Implanted:Qty : 1 on 02/02/2024 by Andre Swartz MD at OR [facility] Right: Eye BAUSCH & LOMB 08/20/2028 [id number] / [id number] / [id number] Lens Li61ao 13.00mm 17.50 - [id number] - [id number] Implanted:Qty : 1 on 02/16/2024 by Andre Swartz MD at OR [facility] Left: Eye BAUSCH & LOMB 07/20/2028 [id number] / [id number] / [id number] documented as of this encounter Visit Diagnoses Diagnosis Myasthenia gravis (HCC)- Primary Myasthenia gravis without exacerbation documented in this encounter Administered Medications Active Administered Medications - up to 3 most recent administrations Medication Order MAR Action Action Date Dose Rate Site diphenhydrAMINE (Benadryl) inj 50 mg 50 mg, IV Push, ONCE PRN Other, Hypersensitivity Reaction, Starting on Ambar 05/03/24 at 0925, Until Tue05/04/24 at 0924, For 24 hoursIndications:Myasthenia gravis (HCC) EPINEPHrine 1 MG/ML inj 0.3 mg 0.3 mg, Intramuscular, ONCE PRN Other, Hypersensitivity Reaction or Anaphylaxis, Starting on Tue05/03/24 at 0925, Until Tue05/04/24 at 0924, For 24 hoursIndications:Myasthenia gravis (HCC) hEParin 100 UNIT/ML Lock Flush inj 500 Units 500 Units (5 mL), IV Lock, PRN Other, IV Flush, Starting on Tue05/03/24 at 0925, Until Tue05/04/24 at 0924, For 24 hours, Do not flush if lock, PICC, or central line not in place; IV infusing or unable to flush.Indications:Myasthenia gravis (HCC) Hydrocortisone Sod Suc (PF) (Solu-Cortef) inj 100 mg 100 mg, IV Push, ONCE PRN Other, Hypersensitivity Reaction, Starting on Tue05/03/24 at 0925, Until Tue05/04/24 at 0924, For 24 hoursIndications:Myasthenia gravis (HCC) NSS infusion Intravenous, at 50 mL/hr, PRN, Starting on Tue05/03/24 at 1030, Until Discontinued, Maintenance lineIndications:Myasthenia gravis (HCC) Start Infusion 05/03/2024 9:40 AM EST 50 mL/hr oxygen GAS Inhalation, OXYGEN, First dose on Ambar 05/03/24 at 1000, Until Discontinued, Device/Managed by: Low [...] Push, PRN Other, IV Flush, Starting on Ambar 05/03/24 at 0925, Until Tue05/04/24 at 0924, For 24 hours, Do not flush if lock, PICC, or central line not in place; IV infusing or unable to flush.Indications:Myasthenia gravis (HCC) Inactive Administered Medications - up to 3 most recent administrations Medication Order MAR Action Action Date Dose Rate Site Efgartigimod evangelina-fcab (Vyvgart) 800 mg in NSS 125 mL infusion 800 mg, IV Piggyback, ONCE, 1 dose, On Ambar 05/03/24 at 1030, In NSS Note: VOLUME TO BE INFUSED 125 ML Infuse over 1 hour via a 0.2 micron in-line filter; do not administer as IV push or bolus. Following administration, flush entire line with NS.Indications:Myasthenia gravis (HCC) Start Infusion 05/03/2024 10:08 AM EST 800 mg 125 mL/hr documented in this encounter Advance Directives Documents on File Type Date Recorded Patient Job Counselor Expl anation Power of Electric Sign Assembler 06/20/2018 POWER OF A TTORNEY POA: EDEL- [...] Power of Attor ephraim? No Care Teams Plane Captain Relationship Specialty Start Date End Date Theresa Johnson MD [address] [place] [address] PCP - General Family Medicine 12/19/23 documented as of this encounter
--- OUTSIDE RECORDS SUMMARY | 2024-06-23 06:14 | External Medical Summary | Summary of Care ---
Author Name Unknown Organization [facility] Address [address] [place] [facility] [place] [address] Phone [phone] Care Team Providers Care Mechanical Energy Engineer Name Role Phone Theresa Johnson MD Primary Care Provider [phone] Reason for Visit * Reason Comments Acute Encounter Details Date Type Department Care Team (Late st Contact Info) Description 04/09/2024 3:00 PM EST Office Visit [facility] [address] [facility] [place] [address] Theresa Johnson MD [address] [place] [address] Acute non-recurrent frontal sinusitis*; Seasonal allergic rhinitis due to pollen; Myasthenia gravis (HCC) Allergies Active Allergy Reactions Criticality Noted Date Comments Benzalkonium Chloride 02/21/2015 Merthiolate "the orange kind" Caused a rash Milk (Cow) Diarrhea 02/05/2015 documented as of this encounter (statuses as of 04/25/2024) Medications ALEVE 220 MG PO CAPS as needed Active Fluticasone Propionate 50 MCG/ACT Nasal Suspension Administer 1 [place] into nostril in the morning. Active FIBER [...] every 3 days. 3 Patch 4 Active Amoxicillin-Pot Clavulanate 875-125 MG Oral Tablet (Augmentin)Indic ations:Acute non-recurrent frontal sinusitis Take 1 Tablet by mouth in the morning and 1 Tablet before bedtime. Do all this for 10 days. 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 Not on file Not on file Not on file documented as of this encounter Last Filed Vital Signs Vital Sign Reading Time Taken Comments Blood Pressure 120/70 04/09/2024 2:58 PM EST Pulse 84 04/09/2024 2:58 PM EST Temperature 36.8 C (98.3 F) 04/09/2024 2:58 PM ES T Respiratory Rate 17 04/09/2024 2:58 PM EST Oxygen Saturation 94% 04/09/2024 2:58 PM EST Inhaled Oxygen Concentration - - Weight 89.4 kg (197 lb 0.6 oz) 04/09/2024 2:58 P M EST Height - - Body Mass Index 30.85 02/16/2024 8:46 AM EDT documented in this encounter Progress Notes * Theresa Johnson MD - 04/09/2024 3:16 PM EST Subjective Chief Complaint Patient presents with Acute Giorgio Kyle Sosa is a 74 year old male. Patient is unaccompanied. The following issues were addressed today: History of Present Illness The patient presents with a suspected sinus infection, which he reports experiencing one to two times per year. He describes symptoms of pressure, which he initially attributed to allergies. However,despite attempts to alleviate symptoms through physician primary care sports medicine, the use of Flonase, and daily neti pot use, the symptoms have persisted. The patient reports that the symptoms began approximately a week ago and have been worsening, with the left side being more affected than the right. He denies fever and any difficulty breathing, but reports postnasal drip. The patient is currently on a daily dose of 10mg prednisone for myasthenia gravis. He is planning to travel by plane in the near future and is concerned about the potential impact on his symptoms. Review of Systems: See HPI Objective BP 120/70 | Pulse 84 | Temp 98.3 F (36.8 C) (Tympanic) | Resp 17 | Wt 197 lb 0.6 oz (89.4 kg) |SpO2 94% | BMI 30.85 kg/m | BSA 2.06 m Wt Readings from Last 3 Encounters: 04/09/24 197 lb 0.6 oz (89.4 kg) 02/16/24 200 lb (90.7 kg) 02/02/24 200 lb (90.7 kg) BP Readings from Last 3 Encounters: 04/09/24 120/70 04/02/24 131/67 03/26/24 138/71 General: Well-appearing, no acute distress Head: Normocephalic and atraumatic Eyes: No conjunctival injection, no scleral icterus, extraocular movements are intact Ears: External ear unremarkable, canals normal and tympanic membranes clear bilaterally Nose: Nasal mucosa pink and moist, nares patent bilaterally Throat/Mouth: Oral mucosa pink and moist, tongue normal in appearance without lesions and with symmetrical movement, pharynx normal in appearance Cardiovascular: Regular rate and rhythm, no murmur Respiratory: Good respiratory effort, breath sounds equal and clear to auscultation bilaterally Neurological: Alert and oriented, no focal deficits noted Psychiatric: Appropriate mood and affect Assessment and Plan 1. Acute non-recurrent frontal sinusitis Given worsening of symptoms, will treat with 10-day course of Augmentin. Continue nasal saline rinse and Flonase. Upcoming travel may exacerbate symptoms due to pressure changes during flight. Discussed Afrin (oxymetazoline) nasal spray for temporary relief, to be used before flying, with caution on rebound congestion if used over three days. 2. Seasonal allergic rhinitis due to pollen Continue daily nasal saline rinse and Flonase. 3. Myasthenia gravis (HCC) Stable. Continue prednisone as prescribed. Return if symptoms worsen or fail to improve. This note was electronically signed by Theresa Johnson MD Text in this note was generated using an ambient documentation service. I discussed the use of a device to record and summarize our discussion today. All persons present during the encounter consented to its use. documented in this encounter Nursing Notes * Paola Serrano LPN - 04/09/2024 2:56 PM EST Patient presents in office today with C/O possible sinus infections. Sinus pressure, headaches, post nasal drip.Denies any fever, cough, ear pain, sore throat. Symptoms started 5 days ago. documented in this encounter Plan of Treatment Upcoming Encounters Date Type Department Care Team (Late st Contact Info) Description 05/03/2024 9:30 AM EST Hem/Onc Treatment Hematology[address] [id number] Krista, Chair 2 Hem Onc [address] [place] [address] 05/04/2024 9:45 AM EST Office Visit Dermatology [facility] [address] [place] [address] Marshall Henson MD [address] [place] [address] [place] [address] 05/09/2024 10:30 AM EST Imaging [facility], a service of [address] [place] [address] 05/11/2024 9:30 AM EST Hem/Onc Treatment Hematology/[address], [address] [phone] 05/21/2024 10:00 AM EST Hem/Onc Treatment Hematology/[address], [address] [address] Krista, Chair 3 Hem Onc [address] [place] [address] 05/28/2024 9:30 AM EST Hem/Onc Treatment Hematology/Oncology Treatment, [place] [address] [facility] [place] [address] Park, Chair 10 Hem Onc [facility] [address] [facility] [place] [address] 06/01/2024 9:00 AM EST Telemedicine Neurology [address] [place] [phone] Nathan, Pharmacist Neurology [address] [place], [place] [phone] 06/18/2024 11:30 AM EST Office Visit Urology, [facility] [address] [place] [address] Ramesh Phan MD [address] [place] [id number] 06/22/2024 10:40 AM EST Office Visit Family Practice [facility] [address] [facility] [place], [place] [address] Theresa Johnson MD [address] [facility] [place] [address] 07/25/2024 11:00 AM EST Office Visit Neurology [address] [place] [address] Maksim Wright MD [address] [place] [facility] [address] Scheduled Procedures Name Priority Associated Diagnoses Date/Ti [...] this encounter Medical Devices Implanted Type Area Pattern Assembler Device Identifier Shelf Expiration Date Model / Serial / Lot Port Powerflow 9.6fr - [id number] Implanted:Qty : 1 on 03/15/2023 at [facility] : PERIPHERAL VASCULAR [id number] 10/21/2023 [id number] / / [id number] Power Port 8fr Sngl Lumen Plas - [id number] Implanted:Qty : 1 on 03/15/2023 at [facility] CR [facility] : PERIPHERAL VASCULAR [id number] 03/22/2024 [id number] / / [id number] Lens Li61ao 13.00mm 18.00 - [id number] - [id number] Implanted:Qty : 1 on 02/02/2024 by Andre Swartz MD at [facility] Right: Eye [employer]CH [employer] LOMB 08/20/2028 [id number] / [id number] / [id number] Lens Li61ao 13.00mm 17.50 - [id number] - [id number] Implanted:Qty : 1 on 02/16/2024 by Andre Swartz MD at [facility] Left: Eye BAUSCH & LOMB 07/20/2028 [id number] / [id number] / [id number] documented as of this encounter Visit Diagnoses Diagnosis Acute non-recurrent frontal sinusitis- Primary Seasonal allergic rhinitis due to pollen Myasthenia gravis (HCC) Myasthenia gravis without exacerbation documented in this encounter Advance Directives Documents on File Type Date Recorded 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 No Care Teams Mechanical Energy Engineer Relationship Specialty Start Date End Date Theresa Johnson MD [address] [place] [address] PCP - General Family Medicine 12/19/23 documented as of this encounter
--- OUTSIDE RECORDS SUMMARY | 2024-06-23 06:14 | External Medical Summary | Summary of Care ---
Author Name Unknown Organization [facility] Address [address] [place] [address] Phone [phone] Care Team Providers Care Fuse Assembler Name Role Phone Theresa Johnson MD Primary Care Provider [phone] Reason for Visit * Reason Onset Date Comments Precert Future 06/01/2024 vyvgart Encounter Details Date Type Department Care Team (Late st Contact Info) Description 06/01/2024 Telephone [address] [place] [phone] Babita Olvera, DNP [address] [place] [address] Precert Future (vyvgart) Allergies Active Allergy Reactions Criticality Noted Date Comments Benzalkonium Chloride 02/21/2015 Merthiolate "the orange kind" Caused a rash Milk (Cow) Diarrhea 02/05/2015 documented as of this encounter (statuses as of 06/01/2024) Medications ALEVE 220 MG PO CAPS as needed Active Fluticasone Propionate 50 MCG/ACT Nasal Suspension Administer 1 [place] into nostril in the morning. 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 documented in this encounter Plan of Treatment Upcoming Encounters Date Type Department Care Team (Late st Contact Info) Description 06/04/2024 11:30 AM EST Office Visit Urology, [facility] [address] [place] [address] Ramesh Phan MD [address] [place] [address] 06/08/2024 9:00 AM EST Telemedicine Neurology [address] [place] [phone] Nathan, Pharmacist Neurology [address] [place] [address] 06/22/2024 10:40 AM EST Office Visit Family Practice [facility] [address] [place] [address] Theresa Johnson MD [address] [place] [address] 07/25/2024 11:00 AM EST Office Visit Neurology Nathan [address] [place] [address] Maksim Wright MD [address] [place], [place] [address] 05/30/2025 11:15 AM EST Office Visit Dermatology [facility] [address] [place] [address] Marshall Henson MD [address] [facility] [place] [address] Scheduled Procedures Name Priority Associated Diagnoses Date/Ti [...] this encounter Medical Devices Implanted Type Area Air Operations Manager Device Identifier Shelf Expiration Date Model / Serial / Lot Port Powerflow 9.6fr - [id number] Implanted:Qty : 1 on 03/15/2023 at [facility] : PERIPHERAL VASCULAR [id number] 10/21/2023 [id number] / / [id number] Power Port 8fr Sngl Lumen Plas - [id number] Implanted:Qty : 1 on 03/15/2023 at [facility] CR [employer]ARD : PERIPHERAL VASCULAR [id number] 03/22/2024 [id number] / / [id number] Lens Li61ao 13.00mm 18.00 - [id number] - [id number] Implanted:Qty : 1 on 02/02/2024 by Andre Swartz MD at [facility] Right: Eye [employer]USCH [employer] LOMB 08/20/2028 [id number] / [id number] / [id number] Lens Li61ao 13.00mm 17.50 - [id number] - [id number] Implanted:Qty : 1 on 02/16/2024 by Andre Swartz MD at [facility] Left: Eye BAUSCH & LOMB 07/20/2028 [id number] / [id number] / [id number] documented as of this encounter Visit Diagnoses Diagnosis Myasthenia gravis (HCC) Myasthenia gravis without exacerbation documented in this encounter Advance Directives Documents on File Type Date Recorded Patient Professional Driver Expl anation Power of Artificial Marble Worker 06/20/2018 POWER OF A TTORNEY POA: EDEL- [...] Power of Attor ephraim? No Care Teams Fuse Assembler Relationship Specialty Start Date End Date Theresa Johnson MD [address] [place] [address] PCP - General Family Medicine 12/19/23 documented as of this encounter
--- OUTSIDE RECORDS SUMMARY | 2024-06-23 06:14 | External Medical Summary | Summary of Care ---
Author Name Unknown Organization [facility] Address [address] [address] Phone [phone] Care Team Providers Care Intelligence Chief Name Role Phone Theresa Johnson MD Primary Care Provider [phone] Reason for Visit * Reason Comments Outpatient Testing Encounter Details Date Type Department Care Team (Late st Contact Info) Description 05/25/2024 11:50 AM EST Laboratory Laboratory [facility] [address] [place] [address] [facility] [address] [place] [address] Prostate cancer (HCC) Allergies Active Allergy Reactions Criticality Noted Date Comments Benzalkonium Chloride 02/21/2015 Merthiolate "the orange kind" Caused a rash Milk (Cow) Diarrhea 02/05/2015 documented as of this encounter (statuses as of 05/25/2024) Medications ALEVE 220 MG PO CAPS as needed Active Fluticasone Propionate 50 MCG/ACT Nasal Suspension Administer 1 [place] into nostril in the morning. 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 Not on file Not on file Not on file documented as of this encounter Plan of Treatment Upcoming Encounters Date Type Department Care Team (Late st Contact Info) Description 05/28/2024 9:30 AM EST Hem/Onc Treatment Hematology/Oncology Treatment, [place] [address] [facility] [address] [address] [place] [phone] Krista, Chair 10 Hem Onc [address] [place] [address] 06/01/2024 9:00 AM EST Telemedicine Neurology [address] [place] [phone] Nathan, Pharmacist Neurology [address] [place] [address] [place] [address] 06/04/2024 11:30 AM EST Office Visit Urology, [facility] [address] [facility] [place] [address] Ramesh Phan MD [address] [place] [address] 06/22/2024 10:40 AM EST Office Visit Family Practice [facility] [address] [facility] [place] [address] Theresa Johnson MD [address] [facility] [place] [address] 07/25/2024 11:00 AM EST Office Visit Neurology Nathan [address] [place] [phone] Maksim Wright MD [address] [place] [id number] Pending Results Name Type Priority Associated Diagnoses Date /Time PSA Lab Routine Prostate cancer (HCC) 05/25/2024 11:46 AM EST Scheduled Procedures Name Priority Associated Diagnoses Date/Ti [...] encounter Medical Devices Implanted Type Area Senior Architectural Designer Device Identifier Shelf Expiration Date Model / Serial / Lot Port Powerflow 9.6fr - [id number] Implanted:Qty : 1 on 03/15/2023 at [facility] CR [facility] : PERIPHERAL VASCULAR [id number] 10/21/2023 [id number] / / [id number] Power Port 8fr Sngl Lumen Plas - [id number] Implanted:Qty : 1 on 03/15/2023 at [facility] CR [facility] : PERIPHERAL VASCULAR [id number] 03/22/2024 [id number] / / [id number] Lens Li61ao 13.00mm 18.00 - [id number] - [id number] Implanted:Qty : 1 on 02/02/2024 by Andre Swartz MD at [facility] Right: Eye BAUSCH & LOMB 08/20/2028 [id number] / [id number] / [id number] Lens Li61ao 13.00mm 17.50 - [id number] - [id number] Implanted:Qty : 1 on 02/16/2024 by Andre Swartz MD at [facility] Left: Eye BAUSCH & LOMB 07/20/2028 [id number] / [id number] / [id number] documented as of this encounter Visit Diagnoses Diagnosis Prostate cancer (HCC) Malignant neoplasm of prostate documented in this encounter Advance Directives Documents on File Type Date Recorded Patient Factory Expert Expl anation Power of Cigarette Seller 06/20/2018 POWER OF A TTORNEY POA: MAYRA- [...] Power of Attor ephraim? No Care Teams Intelligence Chief Relationship Specialty Start Date End Date Theresa Johnson MD [address] [place] [address] PCP - General Family Medicine 12/19/23 documented as of this encounter
--- OUTSIDE RECORDS SUMMARY | 2024-06-23 06:14 | External Medical Summary | Summary of Care ---
Author Name Unknown Organization [facility] Address [address] [facility] [place] [address] Phone [phone] Care Team Providers Care Furnishings Conservator Name Role Phone Keke Johnson MD Primary Care Provider [phone] Reason for Visit * Reason Comments Follow Up Patient here for a s kin check, hx of NMSC. He has a dry scaly patch on his forehead, has been there a few months. Encounter Details Date Type Department Care Team (Late st Contact Info) Description 05/04/2024 9:45 AM EST Office Visit Dermatology [facility] [place] [address] [facility] [place] [address] Marshall Henson MD 200 [facility] [place] [address] Actinic skin damage*; Hx of basal cell carcinoma; Skin neoplasm; Seborrheic dermatitis; Seborrheic keratoses; Scar Allergies Active Allergy Reactions Criticality Noted Date Comments Benzalkonium Chloride 02/21/2015 Merthiolate "the orange kind" Caused a rash Milk (Cow) Diarrhea 02/05/2015 documented as of this encounter (statuses as of 05/04/2024) Medications ALEVE 220 MG PO CAPS as needed Active Fluticasone Propionate 50 MCG/ACT Nasal Suspension Administer 1 [place] into nostril in the morning. 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 He has a dry scaly patch on his forehead, has been therea few months. HPI: Giorgio Sosa is a 74 year old male seen for a full skin check for history of nonmelanoma skin cancer. Some dry skin on forehead. Present a few months DERMATOLOGIC HISTORY: 2021 - BCC, chest 2017 - BCC, left chest 2018 Hx of Myasthenia Gravis, on prednisone for this REVIEW OF SYSTEMS: CONSTITUTIONAL: negative SKIN: No new or changing moles or rashes other than those noted in HPI HEME/LYMPH: No new or enlarging lumps or bumps OBJECTIVE: GEN: Healthy, alert, no distress, appears oriented, pleasant, and cooperative SKIN: Detailed exam of hair, face, trunk, arms, and legs A. Central frontal scalp/hairline - 4mm atrophic pink papule - r/o bcc Central forehead, nasolabial folds - pink plaques with bran like scale Well-healed scar(s) at primary site(s) without evidence of recurrence Scattered on face, chest, back - diffuse mottled hypopigmented and hyperpigmented macules without significant irregularity. Associated telangiectasias At the trunk and extremities are several scattered anguiano/brown hyperkeratotic stuck on appearing waxypapules. ASSESSMENT/PLAN: Skin neoplasm(s) - Shave biopsy of the following lesion(s) A. Central frontal scalp/hairline - 4mm atrophic pink papule - r/o bcc Procedure - Tangential biopsy of skin Biopsy by shave was recommended for the lesion(s) noted above to establish and confirm diagnosis. The procedure, risks, benefits, alternatives and expected outcomes were discussed with the patient and consent was obtained. Time out called. Patient identified, procedure verified, site(s) identified and verified. Patient and staff present in agreement. Area prepped with alcohol and anesthetized using 0.5% lidocaine with epinephrine at 1:200,000 concentration. Biopsy of lesion(s) performed. 20% AlCl and bandaging applied. Specimen(s) sent to pathology. Patient instructed in routine post-op care. Seborrheic dermatitis - continue dandruff shampoos, use on face as well - ketoconazole shampoo to affected areas daily Scar(s), History of Nonmelanoma Skin Cancer - Well healed scar(s) with no evidence of recurrence - Recommended periodic skin exams and instructed to call clinic if patient notices any changing lesions, including rapid enlargement, changes in color or shape or symptoms, bleeding, or other concerns. The common features and behavior of non-melanoma skin cancers (e.g. basal cell carcinoma/squamouscell carcinoma) as well as the features of melanoma were also reviewed. -Daily sun protection recommended including physical (i.e. clothing) and chemical blockers. Broad spectrum sunscreens with at least SPF 30 for UVA and UVA protection were recommended. Chronic Actinic Damage - Discussed that skin changes are due to chronic sun exposure. - Daily sun protection recommended as discussed above Seborrheic keratoses - The benign nature of these lesions was discussed with the patient and that no treatment is indicated today. Marshall Henson MD REF: SELF [address] ADDRESS AVAILABLE PCP: KEKE JOHNSON [address] [place] [address] [place] [address] [phone] documented in this encounter Nursing Notes * Judy Burks LPN - 05/04/2024 9:33 AM EST Chief Complaint Patient presents with Follow Up Patient here for a skin check, hx of NMSC. He has a dry scaly patch on his forehead, has been therea few months. documented in this encounter Plan of Treatment Upcoming Encounters Date Type Department Care Team (Late st Contact Info) Description 05/09/2024 10:30 AM EST Imaging [facility] [facility] [place] [address] [facility] [place] [address] 05/11/2024 9:30 AM EST Hem/Onc Treatment [address]ematology[address] [address] 05/21/2024 10:00 AM EST Hem/Onc Treatment Hematology[address], [address] [address] Krista, Chair 3 Hem On[address] [place] [address] 05/28/2024 9:30 AM EST Hem/Onc Treatment Hematology/Oncology Treatment, [place] [address] [place] [address] Park, Chair 10 Hem Onc [facility] 200 [facility] [place] [address] 06/01/2024 9:00 AM EST Telemedicine Neurology [address] [place] [address] Nathan, Pharmacist Neurology [address] [place] [address] 06/04/2024 11:30 AM EST Office Visit Urology, [facility] [address] [place] [address] Ramesh Phan MD [address] [place] [address] 06/22/2024 10:40 AM EST Office Visit Family Practice [facility] 200 [facility] [place], [place] [address] Keke Johnson MD 200 [facility] [place], [place] [address] 07/25/2024 11:00 AM EST Office Visit Neurology [address] [place] [address] Maksim Wright MD [address] [facility] [place] [id number] Pending Results Name Type Priority Associated Diagnoses Date /Time SURGICAL PATHOLOGY Pathology Routine Skin neoplasm 05/04/2024 9:50 AM EST Scheduled Procedures Name Priority Associated [...] this encounter Medical Devices Implanted Type Area Inspector Firearms Device Identifier Shelf Expiration Date Model / Serial / Lot Port Powerflow 9.6fr - [id number] Implanted:Qty : 1 on 03/15/2023 at [facility] CR BARD : PERIPHERAL VASCULAR [id number] 10/21/2023 [id number] / / [id number] Power Port 8fr Sngl Lumen Plas - [id number] Implanted:Qty : 1 on 03/15/2023 at [facility] CR BARD : PERIPHERAL VASCULAR [id number] 03/22/2024 [id number] / / [id number] Lens Li61ao 13.00mm 18.00 - [id number] - [id number] Implanted:Qty : 1 on 02/02/2024 by Andre Swartz MD at [facility] Right: Eye BAUSCH [employer] LOMB 08/20/2028 [id number] / [id number] / [id number] Lens Li61ao 13.00mm 17.50 - [id number] - [id number] Implanted:Qty : 1 on 02/16/2024 by Andre Swartz MD at [facility] Left: Eye BAUSCH & LOMB 07/20/2028 [id number] / [id number] / [id number] documented as of this encounter Visit Diagnoses Diagnosis Actinic skin damage- Primary Other dermatitis due to solar radiation Hx of basal cell carcinoma Personal history of other malignant neoplasm of skin Skin neoplasm Neoplasm of unspecified nature of bone, soft tissue, and skin Seborrheic dermatitis Seborrheic dermatitis, unspecified Seborrheic keratoses Scar Scar condition and fibrosis of skin documented in this encounter Advance Directives Documents on File Type Date Recorded Patient Direct Support Professional Caregiver Expl anation Power of Photo Finisher 06/20/2018 POWER OF A TTORNEY POA: EDEL- [...] Power of Attor ephraim? No Care Teams Furnishings Conservator Relationship Specialty Start Date End Date Keke Johnson MD 200 [facility] [place] [place] [address] PCP - General Family Medicine 12/19/23 documented as of this encounter
--- OUTSIDE RECORDS SUMMARY | 2024-06-23 06:14 | External Medical Summary | Summary of Care ---
Author Name Unknown Organization [facility] Address [address] [place] [address] Phone [phone] Care Team Providers Care Investment Associate Name Role Phone Theresa Johnson MD Primary Care Provider [phone] Reason for Visit * Reason Comments IV Therapy Vyvgart * Episode Based Medications (Routine) - Authorized Specialty Diagnoses / Procedures Referred By Contac t Referred To Contact Diagnoses Myasthenia gravis (HCC) Procedures NV INJECTION, EFGARTIGIMOD EVANGELINA-FCAB, 2MG Maksim Wright MD [address] [place] [address] Phone: tel: fax: Hematology/Oncology Treatment, [address] [address] Phone: tel: fax: Referral ID Status Reason Start Date Expiration Date V isits Requested Visits Authorized [id number] Authorized 11/04/2023 11/03/2024 99 99 Encounter Details Date Type Department Care Team (Latest Contact Info) Description 05/21/2024 10:00 AM EST Hem/Onc Treatment Hematology/Oncology Treatment, [address] [address] Krista, Chair 7 Hem Onc [address] [address] Myasthenia gravis (HCC)* Allergies Active Allergy Reactions Criticality Noted Date Comments Benzalkonium Chloride 02/21/2015 Merthiolate "the orange kind" Caused a rash Milk (Cow) Diarrhea 02/05/2015 documented as of this encounter (statuses as of 05/21/2024) Medications ALEVE 220 MG PO CAPS as needed Active Fluticasone Propionate 50 MCG/ACT Nasal Suspension Administer 1 [place] into nostril in the morning. 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 PIV removed intact. Goals: Patient will remain free from injury. Possible barriers to meeting goals: Ambulating with IV pole Stability of the patient: Moderately stable - low risk of patient condition declining or worsening Summary regarding today's goals: Met: Patient remained free from harm. Pt discharged in stable condition. * Vane Cabrera RN - 05/21/2024 10:48 AM EST Chair 11 Patient here for treatment. Patient offers no complaints. PIV started with brisk blood return Patient instructed on use of heat in chair. Patient shown how to operate the heat [...] Team (Late st Contact Info) Description 05/25/2024 11:30 AM EST Office Visit Dermatology [facility] 200 [facility] [place] [address] Marshall Henson MD 200 [facility] [place] [address] 05/28/2024 9:30 AM EST Hem/Onc Treatment Hematology/Oncology Treatment, [place] [address] [facility] [address] [place] [id number] Park, Chair 10 Hem Onc [facility] 200 [facility] [place] [address] 06/01/2024 9:00 AM EST Telemedicine Neurology Nathan [address] [place] [address] Nathan, Pharmacist Neurology [address] [place] [address] [place] [address] 06/04/2024 11:30 AM EST Office Visit Urology, [facility] [address] [place] [address] Ramesh Phan MD [address] [place] [address] 06/22/2024 10:40 AM EST Office Visit Family Practice [facility] [address] [facility] [place] [address] Theresa Johnson MD [address] [facility] [place] [address] 07/25/2024 11:00 AM EST Office Visit Neurology [address] [place] [address] Maksim Wright MD [address] [facility] [place] [address] Scheduled Procedures Name [...] this encounter Medical Devices Implanted Type Area Vibrating Screen Operator Device Identifier Shelf Expiration Date Model / Serial / Lot Port Powerflow 9.6fr - [id number] Implanted:Qty : 1 on 03/15/2023 at [facility] CR BARD : PERIPHERAL VASCULAR [id number] 10/21/2023 [id number] / / [id number] Power Port 8fr Sngl Lumen Plas - [id number] Implanted:Qty : 1 on 03/15/2023 at [facility] CR BARD : PERIPHERAL VASCULAR [id number] 03/22/2024 [id number] / / [id number] Lens Li61ao 13.00mm 18.00 - [id number] - [id number] Implanted:Qty : 1 on 02/02/2024 by Andre Swartz MD at [facility] Right: Eye BAUSCH & LOMB 08/20/2028 [id number] / [id number] / [id number] Lens Li61ao 13.00mm 17.50 - [id number] - [id number] Implanted:Qty : 1 on 02/16/2024 by Andre Swartz MD at [facility] Left: Eye BAUSCH & LOMB 07/20/2028 [id number] / [id number] / [id number] documented as of this encounter Visit Diagnoses Diagnosis Myasthenia gravis (HCC)- Primary Myasthenia gravis without exacerbation documented in this encounter Administered Medications Active Administered Medications - up to 3 most recent administrations Medication Order MAR Action Action Date Dose Rate Site diphenhydrAMINE (Benadryl) inj 50 mg 50 mg, IV Push, ONCE PRN Other, Hypersensitivity Reaction, Starting on Tue05/21/24 at 1010, Until Tue05/22/24 at 1009, For 24 hoursIndications:Myasthenia gravis (HCC) EPINEPHrine 1 MG/ML inj 0.3 mg 0.3 mg, Intramuscular, ONCE PRN Other, Hypersensitivity Reaction or Anaphylaxis, Starting on Tue05/21/24 at 1010, Until Tue05/22/24 at 1009, For 24 hoursIndications:Myasthenia gravis (HCC) hEParin 100 UNIT/ML Lock Flush inj 500 Units 500 Units (5 mL), IV Lock, PRN Other, IV Flush, Starting on Tue05/21/24 at 1010, Until Tue05/22/24 at 1009, For 24 hours, Do not flush if lock, PICC, or central line not in place; IV infusing or unable to flush.Indications:Myasthenia gravis (HCC) Hydrocortisone Sod Suc (PF) (Solu-Cortef) inj 100 mg 100 mg, IV Push, ONCE PRN Other, Hypersensitivity Reaction, Starting on Tue05/21/24 at 1010, Until Tue05/22/24 at 1009, For 24 hoursIndications:Myasthenia gravis (HCC) NSS infusion Intravenous, at 50 mL/hr, PRN, Starting on Tue05/21/24 at 1115, Until Discontinued, Maintenance lineIndications:Myasthenia gravis (HCC) Start Infusion 05/21/2024 10:39 AM EST 50 mL/hr oxygen GAS Inhalation, OXYGEN, First dose on Tue05/21/24 at 1045, Until Discontinued, Device/Managed by: Low Flow Device, [...] Push, PRN Other, IV Flush, Starting on Tue05/21/24 at 1010, Until Tue05/22/24 at 1009, For 24 hours, Do not flush if lock, PICC, or central line not in place; IV infusing or unable to flush.Indications:Myasthenia gravis (HCC) Inactive Administered Medications - up to 3 most recent administrations Medication Order MAR Action Action Date Dose Rate Site Efgartigimod evangelina-fcab (Vyvgart) 800 mg in NSS 125 mL infusion 800 mg, IV Piggyback, ONCE, 1 dose, On 05/21/24 at 1115, In NSS Note: VOLUME TO BE INFUSED 125 ML Infuse over 1 hour via a 0.2 micron in-line filter; do not administer as IV push or bolus. Following administration, flush entire line with NS.Indications:Myasthenia gravis (HCC) Start Infusion 05/21/2024 10:41 AM EST 800 mg 125 mL/hr documented in this encounter Advance Directives Documents on File Type Date Recorded Patient Produce Team Lead Expl anation Power of Hot Roll Inspector 06/20/2018 POWER OF A TTORNEY POA: [...] Power of Attor ephraim? No Care Teams Investment Associate Relationship Specialty Start Date End Date Theresa Johnson MD [address] [place] [address] PCP - General Family Medicine 12/19/23 documented as of this encounter
--- OUTSIDE RECORDS SUMMARY | 2024-06-23 06:14 | External Medical Summary | Summary of Care ---
Author Name Unknown Organization [facility] Address [address] [facility] [address] Phone [phone] Care Team Providers Care Senior Internal Auditor Name Role Phone Theresa Johnson MD Primary Care Provider [phone] Reason for Visit * Reason Comments Follow Up Pt presents for cure ttage secondary to BCC on frontal hairline, no new concerns. Encounter Details Date Type Department Care Team (Late st Contact Info) Description 05/25/2024 11:30 AM EST Office Visit Dermatology [facility] 200 [facility] [place] [address] Marshall Henson MD 200 [place] [address] BCC (basal cell carcinoma), scalp/neck* Allergies Active Allergy Reactions Criticality Noted Date Comments Benzalkonium Chloride 02/21/2015 Merthiolate "the orange kind" Caused a rash Milk (Cow) Diarrhea 02/05/2015 documented as of this encounter (statuses as of 05/25/2024) Medications ALEVE 220 MG PO CAPS as needed Active Fluticasone Propionate 50 MCG/ACT Nasal Suspension Administer 1 [place] into nostril in the morning. Active FIBER ADULT GUMMIES 2 g CHEW Take 2 Each by mouth daily. Active SUMAtriptan Succinate 100 MG Oral TabletIndication s:Migraine without status migrainosus, not intractable, unspecified migraine type TAKE 1 TABLET AT ONSET OF MIGRAINE. MAY REPEAT IN 2 HOURS BUT NOT MORE. 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 Also with question about white spot on right inner eye that appeared after cataract surgery Prior biopsy results from 05/04/2024: A. Skin, Central frontal scalp/hairline, shave: Basal cell carcinoma, superficial and nodular type ALLERG Y: Merthiolate [benzalkonium chloride] and Milk [milk (cow)] OBJECT PRICILA: General: Patient is alert and oriented and in no apparent distress. Skin: Problem focused exam reveals: A. Central frontal scalp - 5mm pink scar Right medial canthus - firm white papule ASSESS MENT / PLAN: 1. basal cell carcinoma -For elective curettage today. -For details refer to Procedure Note below. PROCEDURE NOTE Procedure - Curettage (Malignant Destruction) Curette of the lesion noted above to destroy lesion. The procedure, risks, benefits, alternatives and expected outcomes were discussed with the patient and consent was obtained. Time out called. Patient identified, procedure verified, site identified and verified. Patient and staff present in agreement. Area prepped with alcohol and anesthetized with 0.5% lidocaine with epinephrine at 1:200,000 concentration. Curette of lesion performed. 20% AlCl and bandaging applied. Patient instructed in routine post-op care. Size of lesion: 5mm Size of wound after currettage: 13mm -Acetominophen 500mg PO every 6 hours as needed for pain. -Verbal and written wound care instructions provided. -Pt tolerated the procedure well and was discharged to home under the care of self. 2. Milium Benign nature was discussed and no further intervention needed. Advised to call with any changes. The patient was encouraged to contact me with any further questions or concerns. Marshall Henson MD 05/25/2024 11:32 AM documented in this encounter Nursing Notes * Josefina Villavicencio CMA - 05/25/2024 11:31 AM EST Chief Complaint Patient presents with Follow Up Pt presents for curettage secondary to BCC on frontal hairline, no new concerns. documented in this encounter Plan of Treatment Upcoming Encounters Date Type Department Care Team (Late st Contact Info) Description 05/28/2024 9:30 AM EST Hem/Onc Treatment Hematology/Oncology Treatment, [address] [address] Krista, Chair 10 Hem Onc [facility] 200 [facility] [place] [address] 06/01/2024 9:00 AM EST Telemedicine Neurology [address] [place] [address] Nathan, Pharmacist Neurology [address] [place] [address] 06/04/2024 11:30 AM EST Office Visit Urology, [facility] [address] [place] [address] Ramesh Phan MD [address] [place] [address] 06/22/2024 10:40 AM EST Office Visit Family Practice [facility] [address] [facility] [place] [address] Theresa Johnson MD 200 [facility] [place] [address] 07/25/2024 11:00 AM EST Office Visit Neurology Nathan [address] [place] [address] Maksim Wright MD [address] [place] [address] Scheduled Procedures Name Priority Associated Diagnoses [...] this encounter Medical Devices Implanted Type Area Client Portfolio Manager Device Identifier Shelf Expiration Date Model / Serial / Lot Port Powerflow 9.6fr - [id number] Implanted:Qty : 1 on 03/15/2023 at [facility] CR BARD : PERIPHERAL VASCULAR [id number] 10/21/2023 [id number] / / [id number] Power Port 8fr Sngl Lumen Plas - [id number] Implanted:Qty : 1 on 03/15/2023 at [facility] CR BARD : PERIPHERAL VASCULAR [id number] 03/22/2024 [id number] / / [id number] Lens Li61ao 13.00mm 18.00 - [id number] - [id number] Implanted:Qty : 1 on 02/02/2024 by Andre Swartz MD at [facility] Right: Eye BAUSCH & LOMB 08/20/2028 [id number] / [id number] / [id number] Lens Li61ao 13.00mm 17.50 - [id number] - [id number] Implanted:Qty : 1 on 02/16/2024 by Andre Swartz MD at [facility] Left: Eye BAUSCH & LOMB 07/20/2028 [id number] / [id number] / [id number] documented as of this encounter Visit Diagnoses Diagnosis BCC (basal cell carcinoma), scalp/neck- Primary Basal cell carcinoma of scalp and skin of neck documented in this encounter Advance Directives Documents on File Type Date Recorded Patient Fighting Vehicle Infantryman Expl anation Power of Manager Oracle Database 06/20/2018 POWER OF A TTORNEY POA: MAYRA- [...] Power of Attor ephraim? No Care Teams Senior Internal Auditor Relationship Specialty Start Date End Date Theresa Johnson MD 200 [facility] [place] [address] PCP - General Family Medicine 12/19/23 documented as of this encounter
--- OUTSIDE RECORDS SUMMARY | 2024-06-23 06:14 | External Medical Summary | Summary of Care ---
Author Name Unknown Organization [facility] Address [address] [place] [address] Phone [phone] Care Team Providers Care Junior Accountant Name Role Phone Theresa Johnson MD Primary Care Provider [phone] Reason for Visit * Reason Comments IV Therapy Vyvgart * Episode Based Medications (Routine) - Authorized Specialty Diagnoses / Procedures Referred By Contac t Referred To Contact Diagnoses Myasthenia gravis (HCC) Procedures NC INJECTION, EFGARTIGIMOD EVANGELINA-FCAB, 2MG Maksim Wright MD [address] [place] [address] Phone: tel: fax: Hematology/Oncology Treatment, [address] [address] Phone: tel: fax: Referral ID Status Reason Start Date Expiration Date V isits Requested Visits Authorized [id number] Authorized 11/04/2023 11/03/2024 99 99 Encounter Details Date Type Department Care Team (Latest Contact Info) Description 05/11/2024 9:30 AM EST Hem/Onc Treatment Hematology/Oncology Treatment, [address] [address] Myasthenia gravis (HCC)* Allergies Active Allergy Reactions Criticality Noted Date Comments Benzalkonium Chloride 02/21/2015 Merthiolate "the orange kind" Caused a rash Milk (Cow) Diarrhea 02/05/2015 documented as of this encounter (statuses as of 05/11/2024) Medications ALEVE 220 MG PO CAPS as needed Active Fluticasone Propionate 50 MCG/ACT Nasal Suspension Administer 1 [place] into nostril in the morning. 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 on file Not on file Not on file Travel History Travel Start Travel End [facility] 04/15/2024 04/16/2024 documented as of this encounter Last Filed Vital Signs Vital Sign Reading Time Taken Comments Blood Pressure 128/76 05/11/2024 9:39 AM EST Pulse 79 05/11/2024 9:39 AM EST Temperature 36.5 C (97.7 F) 05/11/2024 9:39 AM ES T Respiratory Rate 16 05/11/2024 9:39 AM EST Oxygen Saturation 95% 05/11/2024 9:39 AM EST Inhaled Oxygen Concentration - - Weight - - Height - - Body Mass Index - - documented in this encounter Nursing Notes * Vanessa Sneed LPN - 05/11/2024 9:40 AM EST Patient arrived Chair 5 for IV therapy Vyvgart. Vital signs are stable. IV access successful at theleft metacarpal vein; positive blood return; IV line [...] potential rodriguez while using the heat function. 1115 Patient completed IV therapy. IV access was discontinued; site cleaned and bandaged. Patient instructed to remove Coban wrap after 20 minutes. Patient discharged in stable condition and will return in 2 weeks. documented in this encounter Plan of Treatment Upcoming Encounters Date Type Department Care Team (Late st Contact Info) Description 05/21/2024 10:00 AM EST Hem/Onc Treatment [facility]ematology[facility]Oncology [facility], [place] [facility] [phone] Park, Chair 3 Hem Onc [address] [place] [address] 05/25/2024 11:30 AM EST Office Visit Dermatology [facility] [place] [address] Marshall Henson MD [address] [place] [address] 05/28/2024 9:30 AM EST [facility] [phone] Krista, Chair 10 Hem Onc [address] [place] [address] 06/01/2024 9:00 AM EST Telemedicine Neurology [address] [place] [address] Nathan, Pharmacist Neurology [address] [place] [address] [place] [address] 06/04/2024 11:30 AM EST Office Visit Urology, [facility] 132 [facility] [place] [address] Ramesh Phan MD [address] [place] [address] 06/22/2024 10:40 AM EST Office Visit Family Practice [facility] [address] [place] [address] Theresa Johnson MD [address] [place] [address] 07/25/2024 11:00 AM EST Office Visit Neurology [address] [place] [address] Maksim Wright MD [address] [facility] [place] [address] Scheduled Procedures Name Priority [...] this encounter Medical Devices Implanted Type Area Cork Tipper Device Identifier Shelf Expiration Date Model / Serial / Lot Port Powerflow 9.6fr - [id number] Implanted:Qty : 1 on 03/15/2023 at [facility] CR BARD : PERIPHERAL VASCULAR [id number] 10/21/2023 [id number] / / [id number] Power Port 8fr Sngl Lumen Plas - [id number] Implanted:Qty : 1 on 03/15/2023 at [facility] CR BARD : PERIPHERAL VASCULAR [id number] 03/22/2024 [id number] / / [id number] Lens Li61ao 13.00mm 18.00 - [id number] - [id number] Implanted:Qty : 1 on 02/02/2024 by Andre Swartz MD at OR [facility] Right: Eye BAUSCH & LOMB 08/20/2028 [id number] / [id number] / [id number] Lens Li61ao 13.00mm 17.50 - [id number] - [id number] Implanted:Qty : 1 on 02/16/2024 by Andre Swartz MD at [facility] Left: Eye BAUSCH & LOMB 07/20/2028 [id number] / [id number] / [id number] documented as of this encounter Visit Diagnoses Diagnosis Myasthenia gravis (HCC)- Primary Myasthenia gravis without exacerbation documented in this encounter Administered Medications Active Administered Medications - up to 3 most recent administrations Medication Order MAR Action Action Date Dose Rate Site diphenhydrAMINE (Benadryl) inj 50 mg 50 mg, IV Push, ONCE PRN Other, Hypersensitivity Reaction, Starting on Tue05/11/24 at 0922, Until 05/12/24 at 0921, For 24 hoursIndications:Myasthenia gravis (HCC) EPINEPHrine 1 MG/ML inj 0.3 mg 0.3 mg, Intramuscular, ONCE PRN Other, Hypersensitivity Reaction or Anaphylaxis, Starting on Tue05/11/24 at 0922, Until 05/12/24 at 0921, For 24 hoursIndications:Myasthenia gravis (HCC) hEParin 100 UNIT/ML Lock Flush inj 500 Units 500 Units (5 mL), IV Lock, PRN Other, IV Flush, Starting on Tue05/11/24 at 0922, Until 05/12/24 at 0921, For 24 hours, Do not flush if lock, PICC, or central line not in place; IV infusing or unable to flush.Indications:Myasthenia gravis (HCC) Hydrocortisone Sod Suc (PF) (Solu-Cortef) inj 100 mg 100 mg, IV Push, ONCE PRN Other, Hypersensitivity Reaction, Starting on Tue05/11/24 at 0922, Until 05/12/24 at 0921, For 24 hoursIndications:Myasthenia gravis (HCC) NSS infusion Intravenous, at 50 mL/hr, PRN, Starting on Tue05/11/24 at 1030, Until Discontinued, Maintenance lineIndications:Myasthenia gravis (HCC) Start Infusion 05/11/2024 9:36 AM EST 50 mL/hr oxygen GAS Inhalation, OXYGEN, First dose on Tue05/11/24 at 1000, Until Discontinued, Device/Managed by: Low [...] Push, PRN Other, IV Flush, Starting on Tue05/11/24 at 0922, Until 05/12/24 at 0921, For 24 hours, Do not flush if lock, PICC, or central line not in place; IV infusing or unable to flush.Indications:Myasthenia gravis (HCC) Inactive Administered Medications - up to 3 most recent administrations Medication Order MAR Action Action Date Dose Rate Site Efgartigimod evangelina-fcab (Vyvgart) 800 mg in NSS 125 mL infusion 800 mg, IV Piggyback, ONCE, 1 dose, On Tue05/11/24 at 1030, In NSS Note: VOLUME TO BE INFUSED 125 ML Infuse over 1 hour via a 0.2 micron in-line filter; do not administer as IV push or bolus. Following administration, flush entire line with NS.Indications:Myasthenia gravis (HCC) Start Infusion 05/11/2024 10:11 AM EST 800 mg 125 mL/hr documented in this encounter Advance Directives Documents on File Type Date Recorded Patient Training And Development Assistant Expl anation Power of Radiology Receptionist 06/20/2018 POWER OF A TTORNEY POA: EDEL- [...] Power of Attor ephraim? No Care Teams Junior Accountant Relationship Specialty Start Date End Date Theresa Johnson MD [address] [place] [address] [place] [address] PCP - General Family Medicine 12/19/23 documented as of this encounter
--- OUTSIDE RECORDS SUMMARY | 2024-06-23 06:14 | External Medical Summary | Summary of Care ---
Author Name Unknown Organization [facility] Address [address] [place] [address] Phone [phone] Care Team Providers Care Downstairs Maid Name Role Phone Theresa Johnson MD Primary Care Provider [phone] Reason for Visit * Reason Onset Date Comments Appointment 04/09/2024 Encounter Details Date Type Department Care Team (Late st Contact Info) Description 04/09/2024 Telephone Neurology [address], [address] [place] [address] Babita Olvera, DNP [address] [place] [address] Appointment Allergies Active Allergy Reactions Criticality Noted Date Comments Benzalkonium Chloride 02/21/2015 Merthiolate "the orange kind" Caused a rash Milk (Cow) Diarrhea 02/05/2015 documented as of this encounter (statuses as of 04/23/2024) Medications ALEVE 220 MG PO CAPS as needed Active Fluticasone Propionate 50 MCG/ACT Nasal Suspension Administer 1 [place] into nostril in the morning. 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 Would go to 10 alternating 5 mg x 1 month and see how he does. If he does ok can lowerto 5 mg per day after that. Babita Olvera DNP * Telephone Encounter - Brad Piper brett - 04/23/2024 9:10 AM EST I spoke to patient this morning for MG-ADL score. He is scheduled to start next Vyvgart cycle on 05/03. He just got back from his cruise yesterday and is interested in tapering prednisone dose. Current dose is 10 mg/day. Please advise if ok to taper and if so, how you would like him to taper dose. Thank you! * Telephone Encounter - Eulalia Mcdermott RPh - 04/10/2024 3:04 PM EST Crystal, This was placed on order, [facility] will reply back when it is in stock. Eulalia Mcdermott PharmPenelope, [facility] Coordinator, Acute Pharmacy Services Hematology/Oncology [phone] 04/10/2024, 3:04 PM * Telephone Encounter - Trevor Fernandez OSA - 04/10/2024 8:22 AM EST Patient scheduled according to his preference. He is aware * Telephone Encounter - Gladis Louise OSA - 04/09/2024 2:35 PM EST Left message * Telephone Encounter - Paola Caraballo RN - 04/09/2024 2:26 PM EST Order received. Neuro requesting first dose 05/03/24. Scheduling: please call patient to schedule 3 hour appt "vyvgart 05/26" (Dr Maksim Wright). Patient will need this once a week x4, so will need this 05/03, 05/10, 05/17, 05/24. Thanks! [place]: please order vyvgart for 05/03 appt. Thanks! * Addendum Note - Brad Piper RPh - 04/09/2024 9:55 AM ESTAddended by: BRAD PIPER on: 04/09/2024 09:55 AM Modules accepted: Orders * Telephone Encounter - Brad Piper RPh - 04/09/2024 9:55 AM EST Plan New Supportive Care Plan Treatment Ordered By: Other --- Protocol: SCP - EFGARTIGIMOD ONEYDA (VYVGART) [id number] --- Drug to be Infused: Vyvgart --- Dose: 10 mg/kg (max 1200 mg) every week x4 weeks --- Frequency: 10 mg/kg (max 1200 mg) every week x4 ... * Telephone Encounter - Babita Olvera DNP - 04/09/2024 9:23 AM EST Ok to proceed! Babita * Telephone Encounter - Brad Piper RPh - 04/09/2024 9:21 AM EST Spoke with patient this morning for weekly MG-ADL call. We have been re-dosing Vyvgart cycles 53 days from start of previous cycle to avoid worsening of symptoms. His next cycle would therefore be due on 05/04/24. Patient is requesting to start cycle on 05/03/24 (52 days) due to the being a Tuesday and he would like to be able to travel on the weekend if possible. Ok to plan Vyvgart cycle for 05/03/24? documented in this encounter Plan of Treatment Upcoming Encounters Date Type Department Care Team (Late st Contact Info) Description 05/03/2024 9:30 AM EST Hem/Onc Treatment Hematology/Oncology Treatment, [address] [place] [phone] Park, Chair 2 Hem Onc [address] [place] [address] 05/04/2024 9:45 AM EST Office Visit Dermatology [facility] [address] [place] [address] Marshall Henson MD 200 [facility] [place] [address] 05/09/2024 10:30 AM EST Imaging [facility], a service of [address] [place] [address] 05/11/2024 9:30 AM EST Hem/Onc Treatment Hematology/Oncology Treatment, [address] [place] [address] 05/21/2024 10:00 AM EST Hem/Onc Treatment Hematology/Oncology Treatment, [place] 200 [facility], [place] [address] Park, Chair 3 Hem Onc [facility] 200 [facility] [place], [place] [address] 05/28/2024 9:30 AM EST Hem/Onc Treatment Hematology/Oncology Treatment, [place] 200 [facility], [place] [phone] Krista, Chair 10 Hem Onc [facility] 200 [facility] [place], [place] [address] 06/01/2024 9:00 AM EST Telemedicine Neurology [address] [place] [address] Nathan, Pharmacist Neurology [address] [place] [address] 06/18/2024 11:30 AM EST Office Visit Urology, [facility] 132 [facility] [place] [address] Ramesh Phan MD [address] [place] [id number] 06/22/2024 10:40 AM EST Office Visit Family Practice [facility] 200 [facility] [place], [place] [address] Theresa Johnson MD 200 [facility] [place], [place] [address] 07/25/2024 11:00 AM EST Office Visit Neurology [address] [place] [address] aMksim Wright MD [address] [place] [address] Scheduled Procedures Name Priority Associated Diagnoses [...] this encounter Medical Devices Implanted Type Area Weapons Electrical Engineering Officer Device Identifier Shelf Expiration Date Model / Serial / Lot Port Powerflow 9.6fr - [id number] Implanted:Qty : 1 on 03/15/2023 at [facility] CR BARD : PERIPHERAL VASCULAR [id number] 10/21/2023 [id number] / / [id number] Power Port 8fr Sngl Lumen Plas - [id number] Implanted:Qty : 1 on 03/15/2023 at [facility] CR BARD : PERIPHERAL VASCULAR [id number] 03/22/2024 [id number] / / [id number] Lens Li61ao 13.00mm 18.00 - [id number] - [id number] Implanted:Qty : 1 on 02/02/2024 by Andre Swartz MD at OR [facility] Right: Eye BAUSCH & LOMB 08/20/2028 [id number] / [id number] / [id number] Lens Li61ao 13.00mm 17.50 - [id number] - [id number] Implanted:Qty : 1 on 02/16/2024 by Andre Swartz MD at OR [facility] Left: Eye BAUSCH & LOMB 07/20/2028 [id number] / [id number] / [id number] documented as of this encounter Visit Diagnoses Diagnosis Myasthenia gravis (HCC)- Primary Myasthenia gravis without exacerbation documented in this encounter Advance Directives Documents on File Type Date Recorded Patient Eyeglass Lens Generator Expl anation Power of Chili Pepper Grinder 06/20/2018 POWER OF A TTORNEY POA: EDEL- [...] Power of Attor ephraim? No Care Teams Downstairs Maid Relationship Specialty Start Date End Date Theresa Johnson MD 200 [facility] [place] [address] PCP - General Family Medicine 12/19/23 documented as of this encounter
--- OUTSIDE RECORDS SUMMARY | 2024-06-23 06:14 | External Medical Summary ---
Author Name Unknown Address Unknown Organization K01:[facility] [address] [place] [address] Laboratory Report Ordering Provider Test Date Status HOUSTON ZENDEJAS 05/25/2024 11:46:06 Final Observation Date Value Abnormality Reference (Units ) Status PSA 05/25/2024 11:46:06 9.49 Above high normal <4 .10 (ng/mL) Final Performing Location [facility] - [address] [place] [address]
--- OUTSIDE RECORDS SUMMARY | 2024-06-23 06:15 | External Medical Summary | Summary of Care ---
Author Name Unknown Organization [facility] Address [address] [place] [address] Phone [phone] Care Team Providers Care Tile And Marble Setter Name Role Phone Theresa Johnson MD Primary Care Provider [phone] Reason for Visit * Reason Onset Date Comments Appointment 04/09/2024 Encounter Details Date Type Department Care Team (Late st Contact Info) Description 04/09/2024 Telephone Neurology [address], [place] [address] [place] [address] Babita Olvera, DNP [address] [place] [address] Appointment Allergies Active Allergy Reactions Criticality Noted Date Comments Benzalkonium Chloride 02/21/2015 Merthiolate "the orange kind" Caused a rash Milk (Cow) Diarrhea 02/05/2015 documented as of this encounter (statuses as of 04/23/2024) Medications ALEVE 220 MG PO CAPS as needed Active Fluticasone Propionate 50 MCG/ACT Nasal Suspension Administer 1 [place] into nostril in the morning. Active FIBER [...] it is in stock. Eulalia Mcdermott PharmPenelope, [facility] Coordinator, Acute Pharmacy Services Hematology/Oncology [phone] 04/10/2024, 3:04 PM * Telephone Encounter - [...] --- Protocol: SCP - EFGARTIGIMOD ONEYDA (VYVGART) [id number] --- Drug to be Infused: Vyvgart --- [...] 9:30 AM EST Hem/Onc Treatment Hematology/Oncology Treatment, [address] [place] [phone] Park, Chair 2 Hem Onc [address] [place] [address] 05/04/2024 9:45 AM EST Office Visit Dermatology [facility] [address] [place] [address] Marshall Henson MD 200 [facility] [place] [address] 05/09/2024 10:30 AM EST Imaging [facility], a service of [address] [place] [address] 05/11/2024 9:30 AM EST Hem/Onc Treatment Hematology/Oncology Treatment, [address] [place] [address] 05/21/2024 10:00 AM EST Hem/Onc Treatment Hematology/Oncology Treatment, [place] 200 [facility], [place] [address] Park, Chair 3 Hem Onc [facility] 200 [facility] [place], [place] [address] 05/28/2024 9:30 AM EST Hem/Onc Treatment Hematology/Oncology Treatment, [place] 200 [facility], [place] [phone] Krista, Chair 10 Hem Onc [facility] 200 [facility] [place], [place] [address] 06/01/2024 9:00 AM EST Telemedicine Neurology [place] [address] [place] [address] Nathan, Pharmacist Neurology [address] [place] [address] 06/18/2024 11:30 AM EST Office Visit Urology, [facility] 132 [facility] [place] [address] Ramesh Phan MD [address] [place] [id number] 06/22/2024 10:40 AM EST Office Visit Family Practice [facility] 200 [facility] [place], [place] [address] Theresa Johnson MD 200 [facility] [place], [place] [address] 07/25/2024 11:00 AM EST Office Visit Neurology [place] [address] [place] [address] Maksim Wright MD [address] [place] [address] Scheduled Procedures Name Priority Associated [...] this encounter Medical Devices Implanted Type Area Jersey Knitter Device Identifier Shelf Expiration Date Model / Serial / Lot Port Powerflow 9.6fr - [id number] Implanted:Qty : 1 on 03/15/2023 at [facility] CR BARD : PERIPHERAL VASCULAR [id number] 10/21/2023 [id number] / / [id number] Power Port 8fr Sngl Lumen Plas - [id number] Implanted:Qty : 1 on 03/15/2023 at [facility] CR BARD : PERIPHERAL VASCULAR [id number] 03/22/2024 [id number] / / [id number] Lens Li61ao 13.00mm 18.00 - [id number] - [id number] Implanted:Qty : 1 on 02/02/2024 by Andre Swartz MD at OR [facility] Right: Eye BAUSCH & LOMB 08/20/2028 [id number] / [id number] / [id number] Lens Li61ao 13.00mm 17.50 - [id number] - [id number] Implanted:Qty : 1 on 02/16/2024 by Andre Swartz MD at OR [facility] Left: Eye BAUSCH & LOMB 07/20/2028 [id number] / [id number] / [id number] documented as of this encounter Visit Diagnoses Diagnosis Myasthenia gravis (HCC)- Primary Myasthenia gravis without exacerbation documented in this encounter Advance Directives Documents on File Type Date Recorded Patient Digital Strategist Senior Manager Expl anation Power of Project Manager 06/20/2018 POWER OF A TTORNEY POA: [...] Power of Attor ephraim? No Care Teams Tile And Marble Setter Relationship Specialty Start Date End Date Theresa Johnson MD 200 [place] [address] PCP - General Family Medicine 12/19/23 documented as of this encounter
--- OUTSIDE RECORDS SUMMARY | 2024-06-23 06:15 | External Medical Summary | Summary of Care ---
Author Name Unknown Organization [facility] Address [address] [facility] [address] Phone [phone] Care Team Providers Care Rental Salesperson Name Role Phone Theresa Johnson MD Primary Care Provider [phone] Reason for Visit * Reason Comments Dosage Adjustment Via Phone (anticoag Cl inic) Encounter Details Date Type Department Care Team (Late st Contact Info) Description 04/23/2024 9:00 AM EST Telemedicine Neurology Nathan [address] [place] [phone] Nathan, Pharmacist Neurology [address] [place] [address] Myasthenia gravis (HCC)* Allergies Active Allergy Reactions Criticality Noted Date Comments Benzalkonium Chloride 02/21/2015 Merthiolate "the orange kind" Caused a rash Milk (Cow) Diarrhea 02/05/2015 documented as of this encounter (statuses as of 04/23/2024) Medications ALEVE 220 MG PO CAPS as needed Active Fluticasone Propionate 50 MCG/ACT Nasal Suspension Administer 1 [place] into nostril in the morning. 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 Patient Symptom Assessment [facility] Neurology Patient location: HOME. I was in a hospital or clinic location. After connecting through televideo,patient was verified with two unique identifiers. Patient (or authorized legal life assurance representative) was then informed that this was [...] Disposition: Routine follow-up Total call duration was 10 minutes. Vyvgart Dosing - Cycle 1 -09/16/23, 09/23/23, 09/30/23 , 10/07/23 Cycle 2- 11/14/23, 11/21/23, 11/28/23, 12/05/23 Cycle 3- 01/12/24, 01/19/24, 01/26/24, 02/01/24 Cycle 4 - 03/12/24, 03/19/24, 03/26/24, 04/02/24 Baseline MG-ADL completed on 09/02/23: 6 MG-ADL on 04/23/24: Talkin [place] Swallowin Breathin - a little more prominent lately Impairment of ability to brush teeth of comb hair: 0 Impairment of ability to arise from chair: 2 Double vision: 0 Eyelid droop: 2 - states has always been daily but not full closure - stable ptosis Total Score: 5 Patient got home from cruise yesterday. He states that everything went well and symptoms cooperated. He did need to use the cane the whole time on the cruise because of increased walking and leg fatigue but this was to be expected. MG-ADL increased by 1 point this week due to consistently needing to use arms to arise from chair. He is scheduled for next Vyvgart cycle on the following dates: 05/03/24, 05/10/24, 05/18/24, 05/25/24.Patient may need to alter cycle dates around the holidays due to plans. He is also interested in tapering prednisone dose since the cruise is over. Current prednisone dose is 10 mg/day. Sent message to Babita to advise on taper. Patient was advised to contact the clinic in the meantime with any questions or concerns. Follow up: 1 week after completion of cycle on 06/01/24 Anette Tanner RP Clinical Pharmacist, Neurology Medication Therapy Disease Management 04/23/2024 8:10 AM documented in this encounter Plan of Treatment Upcoming Encounters Date Type Department Care Team (Late st Contact Info) Description 05/03/2024 9:30 AM EST Hem/Onc Treatment Hematology/Oncology Treatment, [place] [address] [place] [phone] Park, Chair 2 Hem Onc [address] [place] [address] 05/04/2024 9:45 AM EST Office Visit Dermatology [address] [place] [address] Marshall Henson MD 200 [facility] [place] [address] 05/09/2024 10:30 AM EST Imaging [facility], a service of [address] [place] [address] 05/10/2024 9:30 AM EST Hem/Onc Treatment Hematology/Oncology Treatment, [place] 200 [place] [phone] Park, Chair 10 Hem Onc Scenery [address] [place] [address] 05/18/2024 9:30 AM EST Hem/Onc Treatment Hematology/Oncology Treatment, [place] [address] [place] [address] Krista, Chair 10 Hem Onc Scen[address] [place], [place] [address] 05/25/2024 9:30 AM EST Hem/Onc Treatment Hematology/Oncology Treatment, [place] [address] [place] [phone] Krista, Chair 8 Hem Onc Scenery 200 [facility] [place], [place] [phone] 06/01/2024 9:00 AM EST Telemedicine Neurology Nathan [address] [place] [phone] Nathan, Pharmacist Neurology [address], [place] [address] 06/18/2024 11:30 AM EST Office Visit Urology, [facility] [address] [place] [address] Ramesh Phan MD [address] [place] [address] 06/22/2024 10:40 AM EST Office Visit Family Practice [facility] [address] [place] [address] Theresa Johnson MD [address] [place] [address] 07/25/2024 11:00 AM EST Office Visit Neurology Nathan [address] [place] [address] Maksim Wright MD [address] [place] [address] Scheduled Procedures Name Priority Associated Diagnoses Date/Ti [...] this encounter Medical Devices Implanted Type Area Computer Programming Professor Device Identifier Shelf Expiration Date Model / Serial / Lot Port Powerflow 9.6fr - [id number] Implanted:Qty : 1 on 03/15/2023 at [facility] CR [facility] : PERIPHERAL VASCULAR [id number] 10/21/2023 [id number] / / [id number] Power Port 8fr Sngl Lumen Plas - [id number] Implanted:Qty : 1 on 03/15/2023 at [facility] CR BARD : PERIPHERAL VASCULAR [id number] 03/22/2024 [id number] / / [id number] Lens Li61ao 13.00mm 18.00 - [id number] - [id number] Implanted:Qty : 1 on 02/02/2024 by Andre Swartz MD at [facility] Right: Eye BAUSCH & LOMB 08/20/2028 [id number] / [id number] / [id number] Lens Li61ao 13.00mm 17.50 - [id number] - [id number] Implanted:Qty : 1 on 02/16/2024 by Andre Swartz MD at OR [facility] Left: Eye BAUSCH & LOMB 07/20/2028 [id number] / [id number] / [id number] documented as of this encounter Visit Diagnoses Diagnosis Myasthenia gravis (HCC)- Primary Myasthenia gravis without exacerbation documented in this encounter Advance Directives Documents on File Type Date Recorded Patient Blocker And Cutter Contact Lens Expl anation Power of Strategic Planning Analyst 06/20/2018 POWER OF A TTORNEY POA: [...] Power of Attor ephraim? No Care Teams Rental Salesperson Relationship Specialty Start Date End Date Theresa Johnson MD [address] [place] [address] PCP - General Family Medicine 12/19/23 documented as of this encounter
--- OUTSIDE RECORDS SUMMARY | 2024-06-23 06:15 | External Medical Summary | Summary of Care ---
Author Name Unknown Organization [facility] Address [address] [place] [address] Phone [phone] Care Team Providers Care Rheumatology Specialist Name Role Phone Theresa Johnson MD Primary Care Provider [phone] Reason for Visit * Reason Onset Date Comments Appointment 04/09/2024 Encounter Details Date Type Department Care Team (Late st Contact Info) Description 04/09/2024 Telephone Neurology [address], [place] [address] [place] [address] Babita Olvera, DNP [address] [place] [address] Appointment Allergies Active Allergy Reactions Criticality Noted Date Comments Benzalkonium Chloride 02/21/2015 Merthiolate "the orange kind" Caused a rash Milk (Cow) Diarrhea 02/05/2015 documented as of this encounter (statuses as of 04/23/2024) Medications ALEVE 220 MG PO CAPS as needed Active Fluticasone Propionate 50 MCG/ACT Nasal Suspension Administer 1 [place] into nostril in the morning. 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 * Telephone Encounter - Eulalia Mcdermott brett - 04/10/2024 3:04 PM EST Crystal, This was placed on order, Bessyjonathon will reply back when it is in stock. Eulalia Mcdermott PharmD, [facility] Coordinator, Acute Pharmacy Services Hematology/Oncology [phone] 04/10/2024, 3:04 PM * Telephone Encounter - [...] --- Protocol: SCP - EFGARTIGIMOD ONEYDA (VYVGART) 6001281 --- Drug to be Infused: Vyvgart --- [...] 9:30 AM EST Hem/Onc Treatment Hematology/Oncology [place], [address] [place] [phone] Krista, Chair 2 Hem On[address] [place] [address] 05/04/2024 9:45 AM EST Office Visit Dermatology [facility] [address] [place] [address] Marshall Henson MD 200 [facility] [place] [address] 05/09/2024 10:30 AM EST Imaging [facility], a service of [address] [place] [address] 05/10/2024 9:30 AM EST Hem/Onc Treatment Hematology/Oncology [address], [address] [phone] Krista, Chair 10 Hem [address] [place] [place] [address] 05/18/2024 9:30 AM EST Hem/Onc Treatment Hematology/Oncology Treatment, [place] 200 [facility] [place] [phone] Krista, Chair 10 Hem Onc [facility] [place] [address] [address] 05/25/2024 9:30 AM EST Hem/Onc Treatment Hematology/Oncology Treatment, [place] [address] [place] [address] Park, Chair 8 Hem Onc [facility] 200 [facility] [place] [address] 06/01/2024 9:00 AM EST Telemedicine Neurology Nathan [address] [place] [phone] Nathan, Pharmacist Neurology [address] [place] [address] 06/18/2024 11:30 AM EST Office Visit Urology, [facility] [address] [place] [address] Ramesh Phan MD [address] [place] [address] 06/22/2024 10:40 AM EST Office Visit Family Practice [facility] [address] [place] [address] Theresa Johnson MD [address] [facility], [place] [address] 07/25/2024 11:00 AM EST Office Visit Neurology Nathan [address] [place] [address] Maksim Wright MD [address] [facility] [place] [phone] Scheduled Procedures Name Priority Associated Diagnoses Date/Ti [...] this encounter Medical Devices Implanted Type Area Skein Washer Device Identifier Shelf Expiration Date Model / Serial / Lot Port Powerflow 9.6fr - [id number] Implanted:Qty : 1 on 03/15/2023 at [facility] CR BARD : PERIPHERAL VASCULAR [id number] 10/21/2023 [id number] / / [id number] Power Port 8fr Sngl Lumen Plas - [id number] Implanted:Qty : 1 on 03/15/2023 at [facility] CR BARD : PERIPHERAL VASCULAR [id number] 03/22/2024 [id number] / / [id number] Lens Li61ao 13.00mm 18.00 - [id number] - [id number] Implanted:Qty : 1 on 02/02/2024 by Andre Swartz MD at [facility] Right: Eye BAUSCH & LOMB 08/20/2028 [id number] / [id number] / [id number] Lens Li61ao 13.00mm 17.50 - [id number] - [id number] Implanted:Qty : 1 on 02/16/2024 by Andre Swartz MD at [facility] Left: Eye BAUSCH & LOMB 07/20/2028 [id number] / [id number] / [id number] documented as of this encounter Visit Diagnoses Diagnosis Myasthenia gravis (HCC)- Primary Myasthenia gravis without exacerbation documented in this encounter Advance Directives Documents on File Type Date Recorded Patient Harvesting Manager Expl anation Power of Technical Spec 06/20/2018 POWER OF A TTORNEY POA: EDEL- [...] Power of Attor ephraim? No Care Teams Rheumatology Specialist Relationship Specialty Start Date End Date Theresa Johnson MD [address] [place] [address] PCP - General Family Medicine 12/19/23 documented as of this encounter
--- OUTSIDE RECORDS SUMMARY | 2024-06-23 06:15 | External Medical Summary | Summary of Care ---
Author Name Unknown Organization [facility] Address [address] [place] [address] Phone [phone] Care Team Providers Care Financial Analyst Accountant Name Role Phone Theresa Johnson MD Primary Care Provider [phone] Reason for Visit * Reason Comments Dosage Adjustment Via Phone (anticoag Cl inic) Encounter Details Date Type Department Care Team (Late st Contact Info) Description 04/16/2024 7:15 AM [facility] Pharmacy Neurology Nathan [address] [place] [phone] Nathan, Pharmacist Neurology [address] [place] [address] Myasthenia gravis (HCC)* Allergies Active Allergy Reactions Criticality Noted Date Comments Benzalkonium Chloride 02/21/2015 Merthiolate "the orange kind" Caused a rash Milk (Cow) Diarrhea 02/05/2015 documented as of this encounter (statuses as of 04/16/2024) Medications ALEVE 220 MG PO CAPS as needed Active Fluticasone Propionate 50 MCG/ACT Nasal Suspension Administer 1 [place] into nostril in the morning. Active FIBER [...] this for 10 days. 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 Patient Symptom Assessment [facility] Neurology Sent MyG to patient for weekly MG-ADL score assessment as patient is traveling. Vyvgart Dosing Cycle 1 -09/16/23, 09/23/23, 09/30/23 , 10/07/23 Cycle 2- 11/14/23, 11/21/23, 11/28/23, 12/05/23 Cycle 3- 01/12/24, 01/19/24, 01/26/24, 02/01/24 Cycle 4 - 03/12/24, 03/19/24, 03/26/24, 04/02/24 Baseline MG-ADL completed on 09/02/23: 6 MG-ADL on 04/15/24: Talkin [place] Swallowin Breathin Impairment of ability to brush teeth of comb hair: 0 Impairment of ability to arise from chair: 1 Double vision: 0 Eyelid droop: 2 - states has always been daily but not full closure - stable ptosis Total Score: 4 Patient responded to MyG: Next cycle scheduled to begin 05/03/24. Will continue to follow-up for weekly MG-ADL scores to assess changes in symptoms. Patient was advised to contact the clinic in the meantime with any questions or concerns. Follow up: 1 week for MG-ADL Anette Tanner RPh Clinical Pharmacist, Neurology Medication Therapy Disease Management 04/16/2024 7:51 AM documented in this encounter Plan of Treatment Upcoming Encounters Date Type Department Care Team (Late st Contact Info) Description 04/23/2024 9:00 AM EST Telemedicine Neurology Nathan [address] [place] [phone] Nathan, Pharmacist Neurology 100 [facility] [place] [address] 05/03/2024 9:30 AM EST Hem/Onc Treatment Hematology/Oncology Treatment, [place] [facility] [phone] Krista, Chair 2 Hem Onc [address] [place] [address] 05/04/2024 9:45 AM EST Office Visit Dermatology [facility] [place] 200 [place] [address] Marshall Henson MD 200 [place] [address] 05/09/2024 10:30 AM EST Imaging [facility], a service of [address] [place] [address] 05/10/2024 9:30 AM EST Hem/Onc Treatment Hematology/Oncology Treatment, [place] [address] [facility] [phone] Krista, Chair 10 Hem Onc [facility] 200 [facility] [place] [address] 05/18/2024 9:30 AM EST Hem/Onc Treatment Hematology/Oncology Treatment, [place] [address] [facility] [phone] Krista, Chair [address] [facility] 200 [facility] [place] [address] 05/25/2024 9:30 AM EST Hem/Onc Treatment Hematology/Oncology Treatment, [place] [address] [place] [address] Krista, Chair 8 Hem Onc [facility] 200 [place] [address] 06/18/2024 11:30 AM EST Office Visit Urology, [facility] [address] [facility] [place] [address] Ramesh Phan MD [address] [place] [id number] 06/22/2024 10:40 AM EST Office Visit Family Practice [facility] [address] [place] [address] Theresa Johnson MD 200 [place] [address] 07/25/2024 11:00 AM EST Office Visit Neurology [...] 2024 02/23/2024, 07/13/2020, 06/13/2020 Colonoscopy 05/26/2025 05/26/2020, 010 08/2020, 04/10/2015, Additional history exists Colorectal Cancer [...] this encounter Medical Devices Implanted Type Area Swing Grinder Device Identifier Shelf Expiration Date Model / Serial / Lot Port Powerflow 9.6fr - [id number] Implanted:Qty : 1 on 03/15/2023 at [facility] CR BARD : PERIPHERAL VASCULAR [id number] 10/21/2023 [id number] / / [id number] Power Port 8fr Sngl Lumen Plas - [id number] Implanted:Qty : 1 on 03/15/2023 at [facility] CR BARD : PERIPHERAL VASCULAR [id number] 03/22/2024 [id number] / / [id number] Lens Li61ao 13.00mm 18.00 - [id number] - [id number] Implanted:Qty : 1 on 02/02/2024 by Andre Swatrz MD at [facility] Right: Eye BAUSCH & LOMB 08/20/2028 [id number] / [id number] / [id number] Lens Li61ao 13.00mm 17.50 - [id number] - [id number] Implanted:Qty : 1 on 02/16/2024 by Andre Swartz MD at [facility] Left: Eye BAUSCH & LOMB 07/20/2028 [id number] / [id number] / [id number] documented as of this encounter Visit Diagnoses Diagnosis Myasthenia gravis (HCC)- Primary Myasthenia gravis without exacerbation documented in this encounter Advance Directives Documents on File Type Date Recorded Patient Electro Optical Engineer Expl anation Power of Administrative Receptionist 06/20/2018 POWER OF A TTORNEY POA: [...] Power of Attor ephraim? No Care Teams Financial Analyst Accountant Relationship Specialty Start Date End Date Theresa Johnson MD 200 [place] [address] PCP - General Family Medicine 12/19/23 documented as of this encounter
--- OUTSIDE RECORDS SUMMARY | 2024-06-23 06:15 | External Medical Summary | Summary of Care ---
Author Name Unknown Organization [facility] Address [address] [place] [address] Phone [phone] Care Team Providers Care Rug Layer Name Role Phone Theresa Johnson MD Primary Care Provider Reason for Visit * Reason Onset Date Comments Appointment 04/23/2024 Treatment Encounter Details Date Type Department Care Team (Late st Contact Info) Description 04/23/2024 Telephone Hematology/Oncology [facility] Krista [place] [address] [place] [address] Services, Scheduling [address] [place] [address] Appointment (Treatment) Allergies Active Allergy Reactions Criticality Noted Date Comments Benzalkonium Chloride 02/21/2015 Merthiolate "the orange kind" Caused a rash Milk (Cow) Diarrhea 02/05/2015 documented as of this encounter (statuses as of 04/23/2024) Medications ALEVE 220 MG PO CAPS as needed Active Fluticasone Propionate 50 MCG/ACT Nasal Suspension Administer 1 [place] into nostril in the morning. 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 Patient aware * Telephone Encounter - Paola Caraballo RN - 04/23/2024 9:34 AM EST Ok to reschedule. Patient has first infusion scheduled 05/03/24. 4 infusions ordered, needs to be 7 days in between each infusion. * Telephone Encounter - Babita Kwong OSA - 04/23/2024 9:16 AM EST We received a call from Giorgio. He is asking to reschedule his treatment appointments that are on for 05/10, 05/18, and 05/25. Please give Giorgio a call back at your earliest convenience. He can be reached at [phone]. Thank you! documented in this encounter Plan of Treatment Upcoming Encounters Date Type Department Care Team (Late st Contact Info) Description 05/03/2024 9:30 AM EST Hem/Onc Treatment Hematology/Oncology Treatment, [place] [address] [place] [phone] Krista, Chair 2 Hem Onc [address] [place] [address] 05/04/2024 9:45 AM EST Office Visit Dermatology [facility] [address] [place], [place] [address] Marshall Henson MD [address] [place], [place] [address] 05/09/2024 10:30 AM EST Imaging [facility], a service of [address] [place] [address] 05/11/2024 9:30 AM EST Hem/Onc Treatment Hematology/Oncology Treatment, [place] 200 [facility], [place] [phone] 05/21/2024 10:00 AM EST Hem/Onc Treatment Hematology/Oncology Treatment, [place] 200 [facility], [place] [phone] Krista, Chair 3 Hem Onc [facility] [address] [place] [address] 05/28/2024 9:30 AM EST Hem/Onc Treatment Hematology/Oncology Treatment, [place] 200 [facility], [place] [phone] Krista, Chair 10 Hem Onc [facility] 200 [facility] [place] [address] 06/01/2024 9:00 AM EST Telemedicine Neurology Nathan [address] [place] [phone] Nathan, Pharmacist Neurology 100 [facility] [place] [id number] 06/18/2024 11:30 AM EST Office Visit Urology, [facility] 132 [facility] [place] [address] Ramesh Phan MD [address] [place] [address] 06/22/2024 10:40 AM EST Office Visit Family Practice [facility] [address] [place] [address] Theresa Johnson MD [address] [place] [address] 07/25/2024 11:00 AM EST Office Visit Neurology Nathan [address] [place] [address] Maksim Wright MD 100 [address] [facility] [place] [address] Scheduled Procedures Name Priority [...] this encounter Medical Devices Implanted Type Area Coroner Technician Device Identifier Shelf Expiration Date Model / Serial / Lot Port Powerflow 9.6fr - [id number] Implanted:Qty : 1 on 03/15/2023 at [facility] CR BARD : PERIPHERAL VASCULAR [id number] 10/21/2023 [id number] / / [id number] Power Port 8fr Sngl Lumen Plas - [id number] Implanted:Qty : 1 on 03/15/2023 at [facility] CR BARD : PERIPHERAL VASCULAR [id number] 03/22/2024 [id number] / / [id number] Lens Li61ao 13.00mm 18.00 - [id number] - [id number] Implanted:Qty : 1 on 02/02/2024 by Andre Swartz MD at [facility] Right: Eye BAUSCH & LOMB 08/20/2028 [id number] / [id number] / [id number] Lens Li61ao 13.00mm 17.50 - [id number] - [id number] Implanted:Qty : 1 on 02/16/2024 by Andre Swartz MD at [facility] Left: Eye BAUSCH & LOMB 07/20/2028 [id number] / [id number] / [id number] documented as of this encounter Advance Directives Documents on File Type Date Recorded Patient Sales Representative Business Courses Expl anation Power of Tool Engineer 06/20/2018 POWER OF A TTORNEY POA: EDEL- [...] Power of Attor ephraim? No Care Teams Rug Layer Relationship Specialty Start Date End Date Theresa Johnson MD [address] [facility] [address] PCP - General Family Medicine 12/19/23 documented as of this encounter
--- OUTSIDE RECORDS SUMMARY | 2024-06-23 06:16 | External Medical Summary | Summary of Care ---
Author Name Unknown Organization [facility] Address [address] [place] [address] Phone [phone] Care Team Providers Care Science Interpreter Name Role Phone Theresa Johnson MD Primary Care Provider [phone] Reason for Visit * Reason Comments IV Therapy C3 D15 Vyvgart * Episode Based Medications (Routine) - Authorized Specialty Diagnoses / Procedures Referred By Contac t Referred To Contact Diagnoses Myasthenia gravis (HCC) Procedures [place] INJECTION, EFGARTIGIMOD EVANGELINA-FCAB, 2MG Maksim Wright MD [address] [place] [address] Anc Hem/Onc [address] [address] Referral ID Status Reason Start Date Expiration Date V isits Requested Visits Authorized [id number] Authorized 11/04/2023 11/03/2024 99 99 Encounter Details Date Type Department Care Team (Latest Contact Info) Description 03/26/2024 10:30 AM EST Hem/Onc Treatment Hematology/Oncology Treatment, [address] [place] [address] Krista, Chair 8 Hem Onc [address] [address] Myasthenia gravis (HCC)* Allergies Active Allergy Reactions Criticality Noted Date Comments Benzalkonium Chloride 02/21/2015 Merthiolate "the orange kind" Caused a rash Milk (Cow) Diarrhea 02/05/2015 documented as of this encounter (statuses as of 03/26/2024) Medications Medication Sig Dispensed Refills Start Date End Date Status ALEVE 220 MG PO CAPS as needed Active Fluticasone Propionate 50 MCG/ACT Nasal Suspension Administer 1 [place] into nostril in the morning. Active FIBER ADULT GUMMIES 2 g CHEW Take 2 Each by mouth daily. Active SUMAtriptan Succinate 100 MG Oral TabletIndications:M igraine without status migrainosus, not intractable, unspecified migraine type TAKE 1 TABLET AT ONSET OF MIGRAINE. MAY REPEAT IN 2 HOURS BUT NOT MORE. 10 Tab 3 02/05/2021 Active Additional Information Patient not taking.Reported on 01/30/2024 Triamcinolone Acetonide 0.5 % External CreamIndications:De rmatitis APPLY TO AFFECTED AREAS TWICE DAILY. 60 g 1 08/21/2021 Active Additional Information Patient not taking.Reported on 01/30/2024 Calcium-Vitamin D-Minerals 600-400 MG-UNIT Oral Tablet ChewableIndications :Myasthenia gravis (HCC) Take 1 tablet in the morning daily 30 Tablet 5 06/08/2022 Active predniSONE 5 MG Oral Tablet (Deltasone) Take 10 mg alternating with 5 mg every other day 45 Tablet 5 01/25/2024 Active Alendronate Sodium 70 MG Oral Tablet (Fosamax)Indication s:High risk for fracture due to osteoporosis by DEXA scan Take 1 Tablet by mouth once a week. with 8 oz. water 30 minutes before first meal of the day. Remain upright for 30 min after taking tablet 12 Tablet 3 03/13/2024 Active Mirtazapine 15 MG Oral Tablet (Remeron)Indication s:Adjustment insomnia TAKE 1 TABLET BY MOUTH EVERYDAY AT BEDTIME 90 Tablet 1 03/16/2024 Active Tamsulosin HCl 0.4 MG Oral Capsule (Flomax)Indications :BPH with obstruction/lower urinary tract symptoms Take 1 Capsule by mouth in the morning. 90 Capsule 3 03/19/2024 Active Scopolamine 1 MG/3DAYS Transdermal Patch 72 Hour (Transderm-Scop) Place 1 patch topically on the skin for 72 hours maximum. May replace every 3 days. 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 Headache 10/13/2010 Overview: ICD-10 update of inactive term Family history of other cardiovascular diseases 08/06/2004 Overview: ICD-10 update of inactive term Family history of malignant neoplasm of prostate 01/19/2001 Allergic rhinitis due to pollen documented as of this encounter (statuses as of 03/26/2024) Resolved Problems Problem Noted Date Diagnosed Date Resolved Date Myasthenia gravis with exacerbation 12/14/2022 12/19/2023 ADVANCE DIRECTIVE INFORMATION 12/30/2004 03/26/2024 Overview: Yes, Patient instructed to provide copy of advance directive for provider to review and to be scanned into Electronic Medical Record Nonallopathic lesion of abdo men and other sites, not elsewhere classified 11/22/2003 06/30/19 12 documented as of this encounter (statuses as of 03/26/2024) Immunizations Name Administration Dates Next Due COVID-19 [...] Answer Date Recorded PHQ-2 Score 0 02/19/2020 Utilities Answer Date Recorded Do you have trouble paying y our heating, water, or electric bill? (Adult - for ages 18 years and over) Not on file 11/08/2023 Is your family able to pay t he heat, water, or electric bill? (Household - for ages 0-17 years) Not on file 11/08/2023 Does your family have access to good internet? (Household - for ages 0-17 years) Not on file 11/08/2023 Social Connections Answer Date Recorded How often do you feel lonely or isolated from those around you? (Adult - for ages 18 years and over) Not on file 11/08/2023 Sex and Gender Information Value Date Recorded Sex Assigned at Male 11/27/2018 10:39 AM EDT Gender Identity Male 11/27/2018 10:39 AM EDT Sexual Orientation Straight 11/27/2018 10 :39 AM EDT Job Start Date Occupation Industry Not on file Not on file Not on file documented as of this encounter Last Filed Vital Signs Vital Sign Reading Time Taken Comments Blood Pressure 138/71 03/26/2024 11:09 AM EST Pulse 79 03/26/2024 11:09 AM EST Temperature 36.5 C (97.7 F) 03/26/2024 11:[address] Respiratory Rate 18 03/26/2024 11:09 AM EST Oxygen Saturation 97% 03/26/2024 11:09 AM EST Inhaled Oxygen Concentration - - Weight - - Height - - Body Mass Index - - documented in this encounter Nursing Notes * Vane Cabrera, RENÉ - 03/26/2024 1:13 PM EST Patient tolerated treatment without difficulty. PIV removed intact. Goals: Patient will remain free from injury. Possible barriers to meeting goals:Ambulating with IV pole Stability of the patient: Moderately stable - low risk of patient condition declining or worsening Summary regarding today's goals: Met: Patient remained free form harm. Pt discharged in stable condition. * Vane Cabrera RN - 03/26/2024 11:10 AM EST Chair 2 Patient here for infusion. Patient offers no acute complaints. PIV started with brisk blood return. Patient instructed on use of heat in [...] Care Team (Late st Contact Info) Description 04/02/2024 9:30 AM EST Hem/Onc Treatment Hematology/Oncology Treatment, [place] [address] [place] [phone] Park, Chair 7 Hem Onc [facility] [address] [facility] [place] [address] 04/09/2024 9:00 AM EST Telemedicine Neurology [address] [place] [phone] Neto, Pharmacist Neurology [address] [place] [address] [place] [id number] 05/04/2024 9:45 AM EST Office Visit Dermatology [facility] [place] [address] [place] [address] Marshall Henson MD [address] [place] [address] 06/18/2024 11:30 AM EST Office Visit Urology, [facility] [address] [place] [address] Ramesh Phan MD [address] [place] [address] 06/22/2024 10:40 AM EST Office Visit [facility] [address] [facility] [place] [address] Theresa Johnson MD [address] [facility] [place] [address] 07/25/2024 11:00 AM EST Office Visit Neurology [address] [place] [address] Maksim Wright MD [address] [place] [address] Scheduled Procedures Name Priority Associated Diagnoses [...] this encounter Medical Devices Implanted Type Area Ingot Passer Device Identifier Shelf Expiration Date Model / Serial / Lot Port Powerflow 9.6fr - [id number] Implanted:Qty : 1 on 03/15/2023 at [facility] CR BARD : PERIPHERAL VASCULAR [id number] 10/21/2023 [id number] / / [id number] Power Port 8fr Sngl Lumen Plas - [id number] Implanted:Qty : 1 on 03/15/2023 at [facility] CR BARD : PERIPHERAL VASCULAR [id number] 03/22/2024 [id number] / / [id number] Lens Li61ao 13.00mm 18.00 - [id number] - [id number] Implanted:Qty : 1 on 02/02/2024 by Andre Swartz MD at [facility] Right: Eye BAUSCH & LOMB 08/20/2028 [id number] / [id number] / [id number] Lens Li61ao 13.00mm 17.50 - [id number] - [id number] Implanted:Qty : 1 on 02/16/2024 by Andre Swartz MD at [facility] Left: Eye BAUSCH & LOMB 07/20/2028 [id number] / [id number] / [id number] documented as of this encounter Visit Diagnoses Diagnosis Myasthenia gravis (HCC)- Primary Myasthenia gravis without exacerbation documented in this encounter Administered Medications Active Administered Medications - up to 3 most recent administrations Medication Order MAR Action Action Date Dose Rate Site diphenhydrAMINE (Benadryl) inj 50 mg 50 mg, IV Push, ONCE PRN Other, Hypersensitivity Reaction, Starting on Tue03/26/24 at 1050, Until Tue03/27/24 at 1049, For 24 hours EPINEPHrine 1 MG/ML inj 0.3 mg 0.3 mg, Intramuscular, ONCE PRN Other, Hypersensitivity Reaction or Anaphylaxis, Starting on Tue03/26/24 at 1050, Until Tue03/27/24 at 1049, For 24 hours hEParin 100 UNIT/ML Lock Flush inj 500 Units 500 Units (5 mL), IV Lock, PRN Other, IV Flush, Starting on Tue03/26/24 at 1050, Until Tue03/27/24 at 1049, For 24 hours, Do not flush if lock, PICC, or central line not in place; IV infusing or unable to flush. Hydrocortisone Sod Suc (PF) (Solu-Cortef) inj 100 mg 100 mg, IV Push, ONCE PRN Other, Hypersensitivity Reaction, Starting on Tue03/26/24 at 1050, Until Tue03/27/24 at 1049, For 24 hours NSS infusion Intravenous, at 50 mL/hr, PRN, Starting on Tue03/26/24 at 1200, Until Discontinued, Maintenance line Start Infusion 03/26/2024 10:52 AM EST 50 mL/hr oxygen GAS Inhalation, OXYGEN, First dose on Tue03/26/24 at 1130, Until Discontinued, Device/Managed by: Low Flow Device, [...] saturation is greater than or equal to 93% sodium chloride 0.9 % flush central line 10 mL 10 mL, IV Push, PRN Other, IV Flush, Starting on Tue03/26/24 at 1050, Until Tue03/27/24 at 1049, For 24 hours, Do not flush if lock, PICC, or central line not in place; IV infusing or unable to flush. Inactive Administered Medications - up to 3 most recent administrations Medication Order MAR Action Action Date Dose Rate Site Efgartigimod evangelina-fcab (Vyvgart) 800 mg in NSS 125 mL infusion 800 mg, IV Piggyback, ONCE, 1 dose, On 03/26/24 at 1200, In NSS Note: VOLUME TO BE INFUSED 125 ML Infuse over 1 hour via a 0.2 micron in-line filter; do not administer as IV push or bolus. Following administration, flush entire line with NS. Start Infusion 03/26/2024 11:48 AM EST 800 mg 125 mL/hr documented in this encounter Advance Directives Documents on File Type Date Recorded Patient Gun Barrel Finisher Expl anation Power of Concrete Inspector 06/20/2018 POWER OF A TTORNEY POA: [...] Power of Attor ephraim? No Care Teams Science Interpreter Relationship Specialty Start Date End Date Theresa Johnson MD [address] [facility] [place] [address] PCP - General Family Medicine 12/19/23 documented as of this encounter
--- OUTSIDE RECORDS SUMMARY | 2024-06-23 06:16 | External Medical Summary | Summary of Care ---
Author Name Unknown Organization [facility] Address [address] [place] [address] Phone [phone] Care Team Providers Care Heat Transfer Technician Name Role Phone Theresa Johnson MD Primary Care Provider Encounter Details Date Type Department Care Team (Late st Contact Info) Description 04/09/2024 Telephone Neurology Gerardo [address] [place] [address] [place] [address] Babita Olvera, LUCY [address] [place] [address] Allergies Active Allergy Reactions Criticality Noted Date Comments Benzalkonium Chloride 02/21/2015 Merthiolate "the orange kind" Caused a rash Milk (Cow) Diarrhea 02/05/2015 documented as of this encounter (statuses as of 04/09/2024) Medications ALEVE 220 MG PO CAPS as needed Active Fluticasone Propionate 50 MCG/ACT Nasal Suspension Administer 1 [place] into nostril in the morning. Active FIBER [...] on 01/30/2024 Triamcinolone Acetonide 0.5 % External CreamIndications :Dermatitis APPLY TO AFFECTED AREAS TWICE DAILY. 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 Babita * Telephone Encounter - Anette Tanner RPh - 04/09/2024 9:21 AM EST Spoke [...] Description 04/09/2024 3:00 PM EST Office Visit Family Practice [facility] [address] [place] [address] [address] Theresa Johnson MD [address] [place] [address] [address] 04/16/2024 7:15 AM EST Pharmacy Neurology [address] [place] [phone] Nathan, Pharmacist Neurology [address] [place] [address] 04/23/2024 9:00 AM EST Telemedicine Neurology [address] [place] [phone] Nathan, Pharmacist Neurology [address] [place] [address] 05/04/2024 9:45 AM EST Office Visit Dermatology [facility] [address] [place] [address] Marshall Henson MD 200 [facility] [place] [address] 05/08/2024 10:30 AM EST Imaging [facility], a service of [address] [place] [address] 06/18/2024 11:30 AM EST Office Visit Urology, [facility] [address] [place] [address] Ramesh Phan MD [address] [place] [address] 06/22/2024 10:40 AM EST Office Visit Family Practice [facility] [address] [place] [address] Theresa Johnson MD 200 [facility] [place] [address] 07/25/2024 11:00 AM EST Office Visit Neurology [address] [place] [address] Maksim Wright MD [address] [facility] [place] [address] Scheduled Procedures Name Priority Associated Diagnoses Date/Ti [...] this encounter Medical Devices Implanted Type Area Forcer Maker Device Identifier Shelf Expiration Date Model / Serial / Lot Port Powerflow 9.6fr - [id number] Implanted:Qty : 1 on 03/15/2023 at [facility] CR BARD : PERIPHERAL VASCULAR [id number] 10/21/2023 [id number] / / [id number] Power Port 8fr Sngl Lumen Plas - [id number] Implanted:Qty : 1 on 03/15/2023 at [facility] CR BARD : PERIPHERAL VASCULAR [id number] 03/22/2024 [id number] / / [id number] Lens Li61ao 13.00mm 18.00 - [id number] - [id number] Implanted:Qty : 1 on 02/02/2024 by Andre Swartz MD at [facility] Right: Eye BAUSCH & LOMB 08/20/2028 [id number] / [id number] / [id number] Lens Li61ao 13.00mm 17.50 - [id number] - [id number] Implanted:Qty : 1 on 02/16/2024 by Andre Swartz MD at [facility] Left: Eye BAUSCH & LOMB 07/20/2028 [id number] / [id number] / [id number] documented as of this encounter Advance Directives Documents on File Type Date Recorded Patient Regional Engineer Expl anation Power of Junior Sales Representative 06/20/2018 POWER OF A TTORNEY POA: EDEL- [...] Power of Attor ephraim? No Care Teams Heat Transfer Technician Relationship Specialty Start Date End Date Theresa Johnson MD [address] [facility] [place] [address] PCP - General Family Medicine 12/19/23 documented as of this encounter
--- OUTSIDE RECORDS SUMMARY | 2024-06-23 06:16 | External Medical Summary | Summary of Care ---
Author Name Unknown Organization [facility] Address [address] [place] [address] Phone [phone] Care Team Providers Care Electric Furnace Operator Name Role Phone Theresa Johnson MD Primary Care Provider [phone] Reason for Visit * Reason Onset Date Comments Appointment 04/09/2024 Encounter Details Date Type Department Care Team (Late st Contact Info) Description 04/09/2024 Telephone Neurology [address] [place], [place] [address] [place] [address] Babita Olvera, DNP [address] [place] [address] Appointment Allergies Active Allergy Reactions Criticality Noted Date Comments Benzalkonium Chloride 02/21/2015 Merthiolate "the orange kind" Caused a rash Milk (Cow) Diarrhea 02/05/2015 documented as of this encounter (statuses as of 04/09/2024) Medications ALEVE 220 MG PO CAPS as needed Active Fluticasone Propionate 50 MCG/ACT Nasal Suspension Administer 1 [place] into nostril in the morning. 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 Thanks! * Addendum Note - Brad Tanner RPh - 04/09/2024 9:55 AM ESTAddended by: BRAD TANNER on: 04/09/2024 09:55 AM Modules accepted: Orders * Telephone Encounter - Brad Tanner RPh - 04/09/2024 9:55 AM EST Plan New Supportive Care Plan Treatment Ordered By: Other --- Protocol: SCP - EFGARTIGIMOD ONEYDA (VYVGART) [id number] --- Drug to be Infused: Vyvgart --- Dose: 10 mg/kg (max 1200 mg) every week x4 weeks --- Frequency: 10 mg/kg (max 1200 mg) every week x4 ... * Telephone Encounter - Babita Olvera DNP - 04/09/2024 9:23 AM EST Ok to proceed! Babita * Telephone Encounter - Brad Tanner RPh - 04/09/2024 9:21 AM EST [...] 3:00 PM EST Office Visit Family Practice [facility] [address] [place] [address] Theresa Johnson MD [address] [place] [address] 04/16/2024 7:15 AM EST Pharmacy Neurology [address] [place] [phone] Nathan, Pharmacist Neurology [address] [place] [address] [place] [address] 04/23/2024 9:00 AM EST Telemedicine Neurology [address] [place] [phone] Nathan, Pharmacist Neurology [address] [place] [address] 05/04/2024 9:45 AM EST Office Visit Dermatology [facility] [address] [place] [address] Marshall Henson MD [address] [place] [address] 05/08/2024 10:30 AM EST Imaging [facility], a service of [facility] [address] [facility] [place] [address] 06/18/2024 11:30 AM EST Office Visit Urology, [facility] [address] [place] [address] Ramesh Phan MD [address] [place] [address] 06/22/2024 10:40 AM EST Office Visit Family Practice [facility] [address] [place], [place] [address] Theresa Johnson MD 200 [facility] [place], [place] [address] 07/25/2024 11:00 AM EST Office Visit Neurology [address] [place] [address] Maksim Wright MD [address] [facility] [place] [address] Scheduled Procedures Name Priority Associated Diagnoses Date/Ti [...] this encounter Medical Devices Implanted Type Area Handkerchief Presser Device Identifier Shelf Expiration Date Model / Serial / Lot Port Powerflow 9.6fr - [id number] Implanted:Qty : 1 on 03/15/2023 at [facility] CR BARD : PERIPHERAL VASCULAR [id number] 10/21/2023 [id number] / / [id number] Power Port 8fr Sngl Lumen Plas - [id number] Implanted:Qty : 1 on 03/15/2023 at [facility] CR BARD : PERIPHERAL VASCULAR [id number] 03/22/2024 [id number] / / [id number] Lens Li61ao 13.00mm 18.00 - [id number] - [id number] Implanted:Qty : 1 on 02/02/2024 by Andre Swartz MD at [facility] Right: Eye BAUSCH & LOMB 08/20/2028 [id number] / [id number] / [id number] Lens Li61ao 13.00mm 17.50 - [id number] - [id number] Implanted:Qty : 1 on 02/16/2024 by Andre Swartz MD at [facility] Left: Eye BAUSCH & LOMB 07/20/2028 [id number] / [id number] / [id number] documented as of this encounter Visit Diagnoses Diagnosis Myasthenia gravis (HCC)- Primary Myasthenia gravis without exacerbation documented in this encounter Advance Directives Documents on File Type Date Recorded Patient Ultimate Hoops Trainer Expl anation Power of Coding Analyst 06/20/2018 POWER OF A TTORNEY POA: [...] Power of Attor ephraim? No Care Teams Electric Furnace Operator Relationship Specialty Start Date End Date Theresa Johnson MD [address] [facility] [place] [address] PCP - General Family Medicine 12/19/23 documented as of this encounter
--- OUTSIDE RECORDS SUMMARY | 2024-06-23 06:16 | External Medical Summary | Summary of Care ---
Author Name Unknown Organization [facility] Address [address] [place] [address] Phone [phone] Care Team Providers Care Packaging Sales Name Role Phone Theresa Johnson MD Primary Care Provider [phone] Reason for Visit * Reason Onset Date Comments Appointment 04/09/2024 Encounter Details Date Type Department Care Team (Late st Contact Info) Description 04/09/2024 Telephone Neurology [address], [place] [address] [place] [address] Babita Olvera, DNP [address] [place] [address] Appointment Allergies Active Allergy Reactions Criticality Noted Date Comments Benzalkonium Chloride 02/21/2015 Merthiolate "the orange kind" Caused a rash Milk (Cow) Diarrhea 02/05/2015 documented as of this encounter (statuses as of 04/10/2024) Medications ALEVE 220 MG PO CAPS as needed Active Fluticasone Propionate 50 MCG/ACT Nasal Suspension Administer 1 [place] into nostril in the morning. 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 Eulalia Mcdermott PharmD, [facility] Coordinator, Acute Pharmacy Services Hematology/Oncology [phone] 04/10/2024, 3:04 PM * Telephone Encounter - [...] need this 05/03, 05/10, 05/17, 05/24. Thanks! Yunier: please order vyvgart for 05/03 appt. Thanks! * Addendum Note - Brad Piper RP - 04/09/2024 9:55 AM ESTAddended by: BRAD PIPER on: 04/09/2024 09:55 AM Modules accepted: Orders * Telephone Encounter - Brad Piper RP - 04/09/2024 9:55 AM EST Plan New Supportive Care Plan Treatment Ordered By: Other --- Protocol: SCP - EFGARTIGIMOD ONEYDA (VYVGART) [id number] --- Drug to be Infused: Vyvgart --- Dose: 10 mg/kg (max 1200 mg) every week x4 weeks --- Frequency: 10 mg/kg (max 1200 mg) every week x4 ... * Telephone Encounter - Babita Olvera DNP - 04/09/2024 9:23 AM EST Ok to proceed! Babita * Telephone Encounter - Brad Piper RP - 04/09/2024 9:21 AM EST Spoke with [...] st Contact Info) Description 04/16/2024 7:15 AM EST Pharmacy Neurology [address], [place] [phone] Nathan, Pharmacist Neurology [address] [facility] [place] [address] 04/23/2024 9:00 AM EST Telemedicine Neurology [address] [place] [phone] Nathan, Pharmacist Neurology [address] [place] [address] 05/03/2024 9:30 AM EST Hem/Onc Treatment Hematology/Oncology Treatment, [place] [facility] [phone] Krista, Chair 2 Hem Onc Scenery [address] [place] [address] [place] [address] 05/04/2024 9:45 AM EST Office Visit Dermatology [facility] [place] 200 [facility] [place] [address] Marshall Henson MD 200 [facility] [place] [address] 05/08/2024 10:45 AM EST Imaging [facility], a service of [address] [place] [address] 05/10/2024 9:30 AM EST Hem/Onc Treatment Hematology/Oncology Treatment, [place] [facility] [phone] Krista, Chair 10 Hem Onc [facility] 200 [facility] [place] [address] 05/18/2024 9:30 AM EST Hem/Onc Treatment Hematology/Oncology Treatment, [place] [facility] [phone] Krista, Chair 10 Hem Onc Scenery 200 [facility] [place] [address] 05/25/2024 9:30 AM EST Hem/Onc Treatment Hematology/Oncology Treatment, [place] [address] [place] [address] Park, Chair 8 Hem Onc [facility] [address] [place] [address] 06/18/2024 11:30 AM EST Office Visit Urology, [facility] 132 [facility] [place] [address] Ramesh Phan MD [address] [place] [address] 06/22/2024 10:40 AM EST Office Visit Family Practice [facility] [address] [place] [phone] Theresa Johnson MD [address] [place] [address] 07/25/2024 11:00 AM EST Office Visit Neurology Nathan [address] [place] [address] Maksim Wright MD [address] [facility] [address] Scheduled Procedures Name Priority Associated Diagnoses Date/Ti me COLONOSCOPY FLEXIBLE PROXIMAL DIAGNOSTIC Recall History of colon polyps Health Maintenance Due Date Last Done Comments Cologuard 01/12/1997 Fecal Occult Blood Test 01/12/1997 Sigmoidoscopy 01/12/1997 Adult Wellness Visit 11/28/2019 11/27/2018 Depression Screening 02/18/2021 02/19/2020 COVID-19 Vaccine ( season) 2024 02/23/2024, 07/13/2020, 06/13/2020 Colonoscopy 05/26/2025 05/26/2020, 01/0 08/2020, 04/10/2015, Additional history exists Colorectal Cancer [...] this encounter Medical Devices Implanted Type Area Manager Enterprise Content Management Device Identifier Shelf Expiration Date Model / Serial / Lot Port Powerflow 9.6fr - [id number] Implanted:Qty : 1 on 03/15/2023 at [facility] CR [place]ARD : PERIPHERAL VASCULAR [id number] 10/21/2023 [id number] / / [id number] Power Port 8fr Sngl Lumen Plas - [id number] Implanted:Qty : 1 on 03/15/2023 at [facility] CR BARD : PERIPHERAL VASCULAR [id number] 03/22/2024 [id number] / / [id number] Lens Li61ao 13.00mm 18.00 - [id number] - [id number] Implanted:Qty : 1 on 02/02/2024 by Andre Swartz MD at [facility] Right: Eye BAUSCH & LOMB 08/20/2028 [id number] / [id number] / [id number] Lens Li61ao 13.00mm 17.50 - [id number] - [id number] Implanted:Qty : 1 on 02/16/2024 by Andre Swartz MD at [facility] Left: Eye BAUSCH & LOMB 07/20/2028 [id number] / [id number] / [id number] documented as of this encounter Visit Diagnoses Diagnosis Myasthenia gravis (HCC)- Primary Myasthenia gravis without exacerbation documented in this encounter Advance Directives Documents on File Type Date Recorded Patient Ware Server Expl anation Power of Currency Counter 06/20/2018 POWER OF A TTORNEY POA: EDEL- [...] Power of Attor ephraim? No Care Teams Packaging Sales Relationship Specialty Start Date End Date Theresa Johnson MD [address] [place] [address] PCP - General Family Medicine 12/19/23 documented as of this encounter
--- OUTSIDE RECORDS SUMMARY | 2024-06-23 06:16 | External Medical Summary | Summary of Care ---
Author Name Unknown Organization [facility] Address [address] [place] [address] Phone [phone] Care Team Providers Care Resource Center Teacher Name Role Phone Theresa Johnson MD Primary Care Provider Encounter Details Date Type Department Care Team (Late st Contact Info) Description 04/09/2024 Telephone Neurology Gerardo Lawson [place] [address] [place] [address] Babita Olvera, LUCY [address] [place] [address] Allergies Active Allergy Reactions Criticality Noted Date Comments Benzalkonium Chloride 02/21/2015 Merthiolate "the orange kind" Caused a rash Milk (Cow) Diarrhea 02/05/2015 documented as of this encounter (statuses as of 04/09/2024) Medications ALEVE 220 MG PO CAPS as needed Active Fluticasone Propionate 50 MCG/ACT Nasal Suspension Administer 1 [place] into nostril in the morning. 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 Not on file Not on file documented as of this encounter Miscellaneous Notes * Addendum Note - Brad Piper RPh - 04/09/2024 9:55 AM ESTAddended by: BRAD PIPER on: 04/09/2024 09:55 AM Modules accepted: Orders * Telephone Encounter - Brad Piper RP - 04/09/2024 9:55 AM EST Plan New Supportive Care Plan Treatment Ordered By: Other --- Protocol: SCP - EFGARTIGIMOD ONEYDA (VYVGART) [id number] --- Drug to be Infused: Vyvgart --- [...] 3:00 PM EST Office Visit Family Practice [facility] [address] [place] [address] Theresa Johnson MD 200 [facility] [place] [address] 04/16/2024 7:15 AM EST Pharmacy Neurology Nathan [address] [place] [phone] Nathan, Pharmacist Neurology [address] [place] [phone] 04/23/2024 9:00 AM EST Telemedicine Neurology Nathan [address] [place] [phone] Nathan, Pharmacist Neurology [address] [place] [id number] 05/04/2024 9:45 AM EST Office Visit Dermatology [facility] [address] [place] [address] Marshall Henson MD 200 [facility] [place] [address] 05/08/2024 10:30 AM EST Imaging [facility], a service of [facility] 120 [facility] [place] [id number] 06/18/2024 11:30 AM EST Office Visit Urology, [facility] 132 [facility] [place] [address] Ramesh Phan MD [address] [place] [address] 06/22/2024 10:40 AM EST Office Visit Family Practice Iam Velas[place] 200 [place] [address] Theresa Johnson MD 200 [facility] [place] [address] 07/25/2024 11:00 AM EST Office Visit Neurology Nathan [address] [place] [phone] Maksim Wright MD [address] [facility] [place] [address] Scheduled Procedures Name [...] this encounter Medical Devices Implanted Type Area Mutual Fund Analyst Device Identifier Shelf Expiration Date Model / Serial / Lot Port Powerflow 9.6fr - [id number] Implanted:Qty : 1 on 03/15/2023 at [facility] CR BARD : PERIPHERAL VASCULAR [id number] 10/21/2023 [id number] / / [id number] Power Port 8fr Sngl Lumen Plas - [id number] Implanted:Qty : 1 on 03/15/2023 at [facility] CR BARD : PERIPHERAL VASCULAR [id number] 03/22/2024 [id number] / / [id number] Lens Li61ao 13.00mm 18.00 - [id number] - [id number] Implanted:Qty : 1 on 02/02/2024 by Andre Swartz MD at [facility] Right: Eye BAUSCH & LOMB 08/20/2028 [id number] / [id number] / [id number] Lens Li61ao 13.00mm 17.50 - [id number] - [id number] Implanted:Qty : 1 on 02/16/2024 by Andre Swartz MD at [facility] Left: Eye BAUSCH & LOMB 07/20/2028 [id number] / [id number] / [id number] documented as of this encounter Visit Diagnoses Diagnosis Myasthenia gravis (HCC)- Primary Myasthenia gravis without exacerbation documented in this encounter Advance Directives Documents on File Type Date Recorded Patient Street Light Wirer Expl anation Power of State Auditor 06/20/2018 POWER OF A TTORNEY POA: EDEL- [...] Power of Attor ephraim? No Care Teams Resource Center Teacher Relationship Specialty Start Date End Date Theresa Johnson MD 200 [place] [address] PCP - General Family Medicine 12/19/23 documented as of this encounter
--- OUTSIDE RECORDS SUMMARY | 2024-06-23 06:16 | External Medical Summary | Summary of Care ---
Author Name Unknown Organization [facility] Address [address] [place] [address] Phone [phone] Care Team Providers Care Online Journalist Name Role Phone Theresa Johnson MD Primary Care Provider [phone] Reason for Visit * Reason Comments Infusion Vyvgart * Episode Based Medications (Routine) - Authorized Specialty Diagnoses / Procedures Referred By Contac t Referred To Contact Diagnoses Myasthenia gravis (HCC) Procedures [place] INJECTION, EFGARTIGIMOD EVANGELINA-FCAB, 2MG Maksim Wright MD [address] [place] [address] Phone: tel: fax: Hematology/Oncology Treatment, [address] [address] Phone: tel: fax: Referral ID Status Reason Start Date Expiration Date V isits Requested Visits Authorized [id number] Authorized 11/04/2023 11/03/2024 99 99 Encounter Details Date Type Department Care Team (Latest Contact Info) Description 04/02/2024 9:30 AM EST Hem/Onc Treatment Hematology/Oncology Treatment, [address] [address] Krista, Chair 7 Hem Onc [address] [address] Myasthenia gravis (HCC)* Allergies Active Allergy Reactions Criticality Noted Date Comments Benzalkonium Chloride 02/21/2015 Merthiolate "the orange kind" Caused a rash Milk (Cow) Diarrhea 02/05/2015 documented as of this encounter (statuses as of 04/02/2024) Medications ALEVE 220 MG PO CAPS as needed Active Fluticasone Propionate 50 MCG/ACT Nasal Suspension Administer 1 [place] into nostril in the morning. 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 PIV removed intact. Pt to return in one month. Dischargedin stable condition. * Azucena Sarmiento LPN - 04/02/2024 9:58 AM EST 0930: Pt arrived for Vyvgart infusion. PIV in R metacarpal. Pt tolerated well. VSS. Patient instructed on use of heat and massage functions where applicable. Patient shown how to operate the heat function of the chair and to alert nursing staff if the chair feels too warm. Patient instructed on therisk of potential rodriguez while using the heat function. Pt has no complaints at this time. documented in this encounter Plan of Treatment Upcoming Encounters Date Type Department Care Team (Late st Contact Info) Description 04/09/2024 9:00 AM EST Telemedicine Neurology Nathan [address] [place] [phone] Nathan Pharmacist Neurology [address] [place] [address] [place] [address] 05/04/2024 9:45 AM EST Office Visit Dermatology [facility] [address] [place] [address] Marshall Henson MD [address] [place] [address] 06/18/2024 11:30 AM EST Office Visit Urology, [facility] 132 [facility] [place] [address] Ramesh Phan MD [address] [place] [address] 06/22/2024 10:40 AM EST Office Visit Family Practice [facility] [address] [place] [address] Theresa Johnson MD [address] [place] [address] 07/25/2024 11:00 AM EST Office Visit Neurology Nathan Lawson [address] [place] [phone] Maksim Wright MD [address] [place] [id number] Scheduled Procedures Name Priority Associated Diagnoses Date/Ti [...] this encounter Medical Devices Implanted Type Area Roasterman Device Identifier Shelf Expiration Date Model / Serial / Lot Port Powerflow 9.6fr - [id number] Implanted:Qty : [facility] : PERIPHERAL VASCULAR [id number] 10/21/2023 [id number] / / [id number] Power Port 8fr Sngl Lumen Plas - [id number] Implanted:Qty : 1 on 03/15/2023 at [facility] CR BARD : PERIPHERAL VASCULAR [id number] 03/22/2024 [id number] / / [id number] Lens Li61ao 13.00mm 18.00 - [id number] - [id number] Implanted:Qty : 1 on 02/02/2024 by Andre Swartz MD at OR [facility] Right: Eye BAUSCH & LOMB 08/20/2028 [id number] / [id number] / [id number] Lens Li61ao 13.00mm 17.50 - [id number] - [id number] Implanted:Qty : 1 on 02/16/2024 by Andre Swartz MD at OR [facility] Left: Eye BAUSCH & LOMB 07/20/2028 [id number] / [id number] / [id number] documented as of this encounter Visit Diagnoses Diagnosis Myasthenia gravis (HCC)- Primary Myasthenia gravis without exacerbation documented in this encounter Administered Medications Active Administered Medications - up to 3 most recent administrations Medication Order MAR Action Action Date Dose Rate Site diphenhydrAMINE (Benadryl) inj 50 mg 50 mg, IV Push, ONCE PRN Other, Hypersensitivity Reaction, Starting on Tue04/02/24 at 0922, Until Tue04/03/24 at 0921, For 24 hoursIndications:Myasthenia gravis (HCC) EPINEPHrine 1 MG/ML inj 0.3 mg 0.3 mg, Intramuscular, ONCE PRN Other, Hypersensitivity Reaction or Anaphylaxis, Starting on Tue04/02/24 at 0922, Until Tue04/03/24 at 0921, For 24 hoursIndications:Myasthenia gravis (HCC) hEParin 100 UNIT/ML Lock Flush inj 500 Units 500 Units (5 mL), IV Lock, PRN Other, IV Flush, Starting on Tue04/02/24 at 0922, Until Tue04/03/24 at 0921, For 24 hours, Do not flush if lock, PICC, or central line not in place; IV infusing or unable to flush.Indications:Myasthenia gravis (HCC) Hydrocortisone Sod Suc (PF) (Solu-Cortef) inj 100 mg 100 mg, IV Push, ONCE PRN Other, Hypersensitivity Reaction, Starting on Tue04/02/24 at 0922, Until Tue04/03/24 at 0921, For 24 hoursIndications:Myasthenia gravis (HCC) NSS infusion Intravenous, at 50 mL/hr, PRN, Starting on Tue04/02/24 at 1030, Until Discontinued, Maintenance lineIndications:Myasthenia gravis (HCC) Start Infusion 04/02/2024 9:35 AM EST 50 mL/hr oxygen GAS Inhalation, OXYGEN, First dose on Tue04/02/24 at 1000, Until Discontinued, Device/Managed by: Low [...] Push, PRN Other, IV Flush, Starting on Tue04/02/24 at 0922, Until Tue04/03/24 at 0921, For 24 hours, Do not flush if lock, PICC, or central line not in place; IV infusing or unable to flush.Indications:Myasthenia gravis (HCC) Inactive Administered Medications - up to 3 most recent administrations Medication Order MAR Action Action Date Dose Rate Site Efgartigimod evangelina-fcab (Vyvgart) 800 mg in NSS 125 mL infusion 800 mg, IV Piggyback, ONCE, 1 dose, On Tue04/02/24 at 1030, Dose basis = 10 mg/kg In NSS - Note: VOLUME TO BE INFUSED 125 ML Infuse over 1 hour via a 0.2 micron in-line filter; do not administer as IV push or bolus. Following administration, flush entire line with NS.Indications:Myasthenia gravis (HCC) Start Infusion 04/02/2024 10:08 AM EST 800 mg 125 mL/hr documented in this encounter Advance Directives Documents on File Type Date Recorded Patient Executive Sales Manager Expl anation Power of Improvement Rn 06/20/2018 POWER OF A TTORNEY POA: EDEL- [...] Power of Attor ephraim? No Care Teams Online Journalist Relationship Specialty Start Date End Date Theresa Johnson MD [address] [place] [address] PCP - General Family Medicine 12/19/23 documented as of this encounter
--- OUTSIDE RECORDS SUMMARY | 2024-06-23 06:16 | External Medical Summary | Summary of Care ---
Author Name Unknown Organization [facility] Address [address] [place] [address] Phone [phone] Care Team Providers Care Export Administrator Name Role Phone Theresa Johnson MD Primary Care Provider [phone] Reason for Visit * Reason Comments IV Therapy C3 D15 Vyvgart * Episode Based Medications (Routine) - Authorized Specialty Diagnoses / Procedures Referred By Contac t Referred To Contact Diagnoses Myasthenia gravis (HCC) Procedures [place] INJECTION, EFGARTIGIMOD EVANGELINA-FCAB, 2MG Maksim Wright MD [address] [place] [address] Anc Hem/Onc [address] [address] Referral ID Status Reason Start Date Expiration Date V isits Requested Visits Authorized [id number] Authorized 11/04/2023 11/03/2024 99 99 Encounter Details Date Type Department Care Team (Latest Contact Info) Description 03/26/2024 10:30 AM EST Hem/Onc Treatment Hematology/Oncology Treatment, [address] [place] [address] Krista, Chair 8 Hem On[address] [address] Myasthenia gravis (HCC)* Allergies Active [...] 9:30 AM EST Hem/Onc Treatment Hematology/Oncology Treatment, [place] [address] [place] [phone] Park, Chair 7 Hem Onc [facility] 200 [facility] [place] [address] 04/09/2024 9:00 AM EST Telemedicine Neurology [address] [place] [phone] Neto, Pharmacist Neurology [address] [place] [address] [place] [id number] 05/04/2024 9:45 AM EST Office Visit Dermatology [facility] [place] [address] [place] [address] Marshall Henson MD [address] [place] [address] 06/18/2024 11:30 AM EST Office Visit Urology, [facility] [address] [place] [address] Ramesh Phan MD [address] [place] [address] 06/22/2024 10:40 AM EST Office Visit Family Practice [facility] 200 [facility] [place] [address] Theresa Johnson MD 200 [facility] [place] [address] 07/25/2024 11:00 AM EST Office Visit Neurology [address] [place] [address] Maksim Wright MD [address] [place] [facility] [place] [address] Scheduled Procedures Name Priority Associated Diagnoses [...] this encounter Medical Devices Implanted Type Area Refrigerator Cabinetmaker Device Identifier Shelf Expiration Date Model / Serial / Lot Port Powerflow 9.6fr - [id number] Implanted:Qty : 1 on 03/15/2023 at [facility] CR BARD : PERIPHERAL VASCULAR [id number] 10/21/2023 [id number] / / [id number] Power Port 8fr Sngl Lumen Plas - [id number] Implanted:Qty : 1 on 03/15/2023 at [facility] CR BARD : PERIPHERAL VASCULAR [id number] 03/22/2024 [id number] / / [id number] Lens Li61ao 13.00mm 18.00 - [id number] - [id number] Implanted:Qty : 1 on 02/02/2024 by Andre Swartz MD at [facility] Right: Eye BAUSCH & LOMB 08/20/2028 [id number] / [id number] / [id number] Lens Li61ao 13.00mm 17.50 - [id number] - [id number] Implanted:Qty : 1 on 02/16/2024 by Andre Swartz MD at [facility] Left: Eye BAUSCH & LOMB 07/20/2028 [id number] / [id number] / [id number] documented as of this encounter Visit Diagnoses [...] Documents on File Type Date Recorded Patient Mock Up Maker Expl anation Power of Master Brewer 06/20/2018 POWER OF A TTORNEY POA: EDEL- [...] Power of Attor ephraim? No Care Teams Export Administrator Relationship Specialty Start Date End Date Theresa Johnson MD 200 [facility] [place] [address] PCP - General Family Medicine 12/19/23 documented as of this encounter
--- OUTSIDE RECORDS SUMMARY | 2024-06-23 06:16 | External Medical Summary | Summary of Care ---
Author Name Unknown Organization [facility] Address [address] [facility] [address] Phone [phone] Care Team Providers Care [employer] Principal Name Role Phone Theresa Johnson MD Primary Care Provider [phone] Reason for Visit * Reason Comments Dosage Adjustment Via Phone (anticoag Cl inic) Encounter Details Date Type Department Care Team (Late st Contact Info) Description 04/09/2024 9:00 AM EST Telemedicine Neurology [address] [place] [phone] Nathan, Pharmacist Neurology [address] [place] [address] Myasthenia gravis (HCC)* Allergies Active Allergy Reactions Criticality Noted Date Comments Benzalkonium Chloride 02/21/2015 Merthiolate "the orange kind" Caused a rash Milk (Cow) Diarrhea 02/05/2015 documented as of this encounter (statuses as of 04/09/2024) Medications ALEVE 220 MG PO CAPS as needed Active Fluticasone Propionate 50 MCG/ACT Nasal Suspension Administer 1 [place] into nostril in the morning. 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 Patient Symptom Assessment [facility] Neurology Patient location: HOME. I was in a hospital or clinic location. After connecting through televideo,patient was verified with two unique identifiers. Patient (or authorized legal client care representative) was then informed that this was [...] Disposition: Routine follow-up Total call duration was 9 minutes. Vyvgart Dosing - Cycle 1 -09/16/23, 09/23/23, 09/30/23 , 10/07/23 Cycle 2- 11/14/23, 11/21/23, 11/28/23, 12/05/23 Cycle 3- 01/12/24, 01/19/24, 01/26/24, 02/01/24 Cycle 4 - 03/12/24, 03/19/24, 03/26/24, 04/02/24 Baseline MG-ADL completed on 09/02/23: 6 MG-ADL on 04/09/24: Talkin [place] Swallowin Breathin (exercise has improved this symptom) Impairment of ability to brush teeth of comb hair: 0 Impairment of ability to arise from chair: 1 Double vision: 0 - see note below Eyelid droop: 2 - states has always been daily but not full closure - stable ptosis Total Score: 4 Patient had Covid infection 03/05/24 which delayed start of previous cycle (received on day 60). Tested negative about 5 days into infection. He notes his symptoms were mild and was able to predict his symptoms due to delay in Vyvgart cycle, which he does appreciate. He has been going to the gym. Notes sinus infection since last week for which he is seeing PCP today. He is currently on 10 mg/day of prednisone - interested in tapering after his cruise. Patient is leaving for cruise on 04/14 and will be home on 04/22. MG-ADL has improved from previous, however, noted that previous scores have factored in constant double vision which was actually due to severe astigmatism. Discussed timing of cycle and patient feels that 53 days from start of previous cycle has been working well for him. Plan to re-dose 53 days from start of previous cycle based on past response, so start of next cyclearound 05/04/24. Patient is requesting to start cycle on 05/03 so that he can still travel on the weekend if he has plans (05/04 is a Tuesday). Sent message to Babita to see if okay to redose on 05/03(52 days). Will complete weekly MG-ADL score next week via MyG as patient will be traveling. Patient was advised to contact the clinic in the meantime with any questions or concerns. Follow up: 1 week for MG-ADL (via MyG as patient will be on cruise) Anette Tanner RPh Clinical Pharmacist, Neurology Medication Therapy Disease Management 04/09/2024 8:24 AM documented in this encounter Plan of Treatment Upcoming Encounters Date Type Department Care Team (Late st Contact Info) Description 04/09/2024 3:00 PM EST Office Visit Family Practice [facility] [address] [place] [address] [address] Theresa Johnson MD [address] [place] [address] 04/16/2024 7:15 AM EST Pharmacy Neurology Nathan [address] [place] [phone] Nathan, Pharmacist Neurology [address] [place], [place] [id number] 04/23/2024 9:00 AM EST Telemedicine Neurology [address] [place] [phone] Nathan, Pharmacist Neurology [address] [place], [place] [id number] 05/04/2024 9:45 AM EST Office Visit Dermatology [facility] [address] [facility] [place] [address] Marshall Henson MD [address] [facility] [place] [address] 05/08/2024 10:30 AM EST [facility], a service of [address] [place] [address] 06/18/2024 11:30 AM EST Office Visit Urology, [facility] [address] [place] [address] Ramesh Phan MD [address] [place] [address] 06/22/2024 10:40 AM EST Office Visit Family Practice [facility] [address] [place], [place] [address] Theresa Johnson MD [address] [place] [address] 07/25/2024 11:00 AM EST Office Visit Neurology Nathan [address] [place] [phone] Maksim Wright MD [address] [place], [place] [id number] Scheduled Procedures Name Priority Associated Diagnoses Date/Ti [...] this encounter Medical Devices Implanted Type Area Medical Collections Device Identifier Shelf Expiration Date Model / Serial / Lot Port Powerflow 9.6fr - [id number] Implanted:Qty : 1 on 03/15/2023 at [facility] CR BARD : PERIPHERAL VASCULAR [id number] 10/21/2023 [id number] / / [id number] Power Port 8fr Sngl Lumen Plas - [id number] Implanted:Qty : 1 on 03/15/2023 at [facility] CR BARD : PERIPHERAL VASCULAR [id number] 03/22/2024 [id number] / / [id number] Lens Li61ao 13.00mm 18.00 - [id number] - [id number] Implanted:Qty : 1 on 02/02/2024 by Andre Swartz MD at [facility] Right: Eye BAUSCH & LOMB 08/20/2028 [id number] / [id number] / [id number] Lens Li61ao 13.00mm 17.50 - [id number] - [id number] Implanted:Qty : 1 on 02/16/2024 by Andre Swartz MD at [facility] Left: Eye BAUSCH & LOMB 07/20/2028 [id number] / [id number] / [id number] documented as of this encounter Visit Diagnoses Diagnosis Myasthenia gravis (HCC)- Primary Myasthenia gravis without exacerbation documented in this encounter Advance Directives Documents on File Type Date Recorded Patient Credit Risk Analytics Manager Expl anation Power of Pcmh Specialist 06/20/2018 POWER OF A TTORNEY POA: [...] of Attor ephraim? No Care Teams [employer] Principal Relationship Specialty Start Date End Date Theresa Johnson MD [address] [place] [address] PCP - General Family Medicine 12/19/23 documented as of this encounter
--- OUTSIDE RECORDS SUMMARY | 2024-06-23 06:16 | External Medical Summary | Summary of Care ---
Author Name Unknown Organization [facility] Address [address] [place] [address] Phone [phone] Care Team Providers Care Instrument Installer Name Role Phone Theresa Johnson MD Primary Care Provider [phone] Reason for Visit * Reason Onset Date Comments Appointment 04/09/2024 Encounter Details Date Type Department Care Team (Late st Contact Info) Description 04/09/2024 Telephone Neurology [address], [place] [address] [place] [address] Babita Olvera, DNP [address] [place] [address] Appointment Allergies Active Allergy Reactions Criticality Noted Date Comments Benzalkonium Chloride 02/21/2015 Merthiolate "the orange kind" Caused a rash Milk (Cow) Diarrhea 02/05/2015 documented as of this encounter (statuses as of 04/09/2024) Medications ALEVE 220 MG PO CAPS as needed Active Fluticasone Propionate 50 MCG/ACT Nasal Suspension Administer 1 [place] into nostril in the morning. 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 [place] [facility] [place] [address] 05/04/2024 9:45 AM EST Office Visit Dermatology [facility] [address] [place] [address] Marshall Henson MD [address] [place] [address] 05/08/2024 10:30 AM EST Imaging [facility], a service of [facility] [address] [facility] [place] [address] 06/18/2024 11:30 AM EST Office Visit Urology, [facility] [address] [place] [address] Ramesh Phan MD [address] [place] [address] 06/22/2024 10:40 AM EST Office Visit Family Practice [facility] 200 [facility] [place] [address] Theresa Johnson MD [address] [facility] [place] [address] 07/25/2024 11:00 AM EST Office Visit Neurology [address] [place] [phone] Maksim Wright MD [address] [place] [facility] [place] [address] Scheduled Procedures Name Priority Associated Diagnoses [...] this encounter Medical Devices Implanted Type Area Amusement Equipment Operator Device Identifier Shelf Expiration Date Model / Serial / Lot Port Powerflow 9.6fr - [id number] Implanted:Qty : 1 on 03/15/2023 at [facility] CR BARD : PERIPHERAL VASCULAR [id number] 10/21/2023 [id number] / / [id number] Power Port 8fr Sngl Lumen Plas - [id number] Implanted:Qty : 1 on 03/15/2023 at [facility] CR BARD : PERIPHERAL VASCULAR [id number] 03/22/2024 [id number] / / [id number] Lens Li61ao 13.00mm 18.00 - [id number] - [id number] Implanted:Qty : 1 on 02/02/2024 by Andre Swartz MD at OR [facility] Right: Eye BAUSCH & LOMB 08/20/2028 [id number] / [id number] / [id number] Lens Li61ao 13.00mm 17.50 - [id number] - [id number] Implanted:Qty : 1 on 02/16/2024 by Andre Swartz MD at OR [facility] Left: Eye BAUSCH & LOMB 07/20/2028 [id number] / [id number] / [id number] documented as of this encounter Visit Diagnoses Diagnosis Myasthenia gravis (HCC)- Primary Myasthenia gravis without exacerbation documented in this encounter Advance Directives Documents on File Type Date Recorded Patient Signwriter Expl anation Power of Inseam Leveler 06/20/2018 POWER OF A TTORNEY POA: EDEL- [...] Power of Attor ephraim? No Care Teams Instrument Installer Relationship Specialty Start Date End Date Theresa Johnson MD [address] [place] [address] PCP - General Family Medicine 12/19/23 documented as of this encounter
--- OUTSIDE RECORDS SUMMARY | 2024-06-23 06:16 | External Medical Summary | Summary of Care ---
Author Name Unknown Organization [facility] Address [address] [facility] [place] [address] Phone [phone] Care Team Providers Care Health Benefits Specialist Name Role Phone Theresa Johnson MD Primary Care Provider [phone] Reason for Visit * Reason Onset Date Comments Medication Refill 03/19/2024 Encounter Details Date Type Department Care Team (Late st Contact Info) Description 03/19/2024 Refill Urology, [facility] [address] [facility] [place] [address] Ramesh Phan MD [address] [place] [id number] BPH with obstruction/lower urinary tract symptoms Allergies Active Allergy Reactions Criticality Noted Date Comments Benzalkonium Chloride 02/21/2015 Merthiolate "the orange kind" Caused a rash Milk (Cow) Diarrhea 02/05/2015 documented as of this encounter (statuses as of 03/19/2024) Medications Medication Sig Dispensed Refills Start Date End Date Status ALEVE 220 MG PO CAPS as needed Active Fluticasone Propionate 50 MCG/ACT Nasal Suspension Administer 1 [place] into nostril in the morning. Active FIBER ADULT GUMMIES 2 g CHEW Take 2 Each by mouth daily. Active SUMAtriptan Succinate 100 MG Oral TabletIndications: Migraine without status migrainosus, not intractable, unspecified migraine type TAKE 1 TABLET AT ONSET OF MIGRAINE. MAY REPEAT IN 2 HOURS BUT NOT MORE. 10 Tab 3 02/05/2021 Active Additional Information Patient not taking.Reported on 01/30/2024 Triamcinolone Acetonide 0.5 % External CreamIndications:D ermatitis APPLY TO AFFECTED AREAS TWICE DAILY. 60 g 1 08/21/2021 Active Additional Information Patient not taking.Reported on 01/30/2024 Calcium-Vitamin D-Minerals 600-400 MG-UNIT Oral Tablet ChewableIndication s:Myasthenia gravis (HCC) Take 1 tablet in the morning daily 30 Tablet 5 06/08/2022 Active predniSONE 5 MG Oral Tablet (Deltasone) Take 10 mg alternating with 5 mg every other day 45 Tablet 5 01/25/2024 Active Alendronate Sodium 70 MG Oral Tablet (Fosamax)Indicatio ns:High risk for fracture due to osteoporosis by DEXA scan Take 1 Tablet by mouth once a week. with 8 oz. water 30 minutes before first meal of the day. Remain upright for 30 min after taking tablet 12 Tablet 3 03/13/2024 Active Mirtazapine 15 MG Oral Tablet (Remeron)Indicatio ns:Adjustment insomnia TAKE 1 TABLET BY MOUTH EVERYDAY AT BEDTIME 90 Tablet 1 03/16/2024 Active Tamsulosin HCl 0.4 MG Oral Capsule (Flomax)Indication s:BPH with obstruction/lower urinary tract symptoms Take 1 Capsule by mouth in the morning. 90 Capsule 3 03/19/2024 Active Scopolamine 1 MG/3DAYS Transdermal Patch 72 Hour (Transderm-Scop) Place 1 patch topically on the skin for 72 hours maximum. May replace every 3 days. 3 Patch 03/19/2024 Active Tamsulosin HCl 0.4 MG Oral Capsule (Flomax)Indication s:BPH with obstruction/lower urinary tract symptoms Take 1 Capsule by mouth in the morning. 90 Capsule 3 03/16/2023 4 Discontinue d(Refill) documented as of this encounter (statuses as of 03/19/2024) Active Problems Problem Noted Date Diagnosed Date [...] 10/13/2010 Overview: ICD-10 update of inactive term ADVANCE DIRECTIVE INFORMATION 12/30/2004 Overview: Yes, Patient instructed to provide copy of advance directive for provider to review and to be scanned into Electronic Medical Record Family history of other cardiovascular diseases 08/06/2004 Overview: ICD-10 update of inactive term Family history of malignant neoplasm of prostate 01/19/2001 Allergic rhinitis due to pollen documented as of this encounter (statuses as of 03/19/2024) Resolved Problems Problem Noted Date Diagnosed Date Resolved Date Myasthenia gravis with exacerbation 12/14/2022 12/19/2023 Nonallopathic lesion of abdo men and other sites, not elsewhere classified 11/22/2003 06/30/19 12 documented as of this encounter (statuses as of 03/19/2024) Immunizations Name Administration Dates Next Due COVID-19 [...] encounter Miscellaneous Notes * Telephone Encounter - Rmaesh Phan MD - 03/19/2024 4:46 PM EDTSigned Prescriptions: Disp Refills Tamsulosin HCl 0.4 MG Oral Capsule (Flomax)90 Cap*3 Sig: Take 1 Capsule by mouth in the morning. Authorizing Provider: RAMESH PHAN * Telephone Encounter - Theresa Alegre LPN - 03/19/2024 1:27 PM EDTPending Prescriptions: Disp Refills Tamsulosin HCl 0.4 MG Oral Capsule (Flomax)90 Cap*3 Sig: Take 1 Capsule by mouth in the morning. * Telephone Encounter - Theresa Alegre LPN - 03/19/2024 1:27 PM EDT Last refilled on 03/16/23, pending. Please sign if agreeable. documented in this encounter Plan of Treatment Upcoming Encounters Date Type Department Care Team (Late st Contact Info) Description 03/26/2024 10:30 AM EST Hem/Onc Treatment Hematology/Oncology Treatment, [place] [address] [place] [id number] Krista, Chair 8 Hem On[address] [place] [address] 04/02/2024 9:30 AM EST Hem/Onc Treatment Hematology/Oncology [address], [address] [phone] Krista, Chair 7 Hem Onc [address] [place] [address] 04/09/2024 9:00 AM EST Telemedicine Neurology [address] [place] [phone] Neto, Pharmacist Neurology [address] [place] [address] [place] [id number] 05/04/2024 9:45 AM EST Office Visit Dermatology [facility] Krista [place] [address] [facility] [place] [address] Marshall Henson MD [address] [place] [address] 06/18/2024 11:30 AM EST Office Visit Urology, [facility] [address] [place] [address] Ramesh Phan MD [address] [place] [address] 06/22/2024 10:40 AM EST Office Visit Family Practice [facility] [address] [place] [address] Theresa Johnson MD [address] [place] [address] 07/25/2024 11:00 AM EST Office Visit Neurology [place] [address] [place] [address] [place] [address] Maksim Wright MD [address] [facility] [place] [address] Scheduled Procedures Name Priority Associated Diagnoses Date/Ti me COLONOSCOPY FLEXIBLE PROXIMAL DIAGNOSTIC Recall History of colon polyps Health Maintenance Due Date Last Done Comments Cologuard 01/12/1997 Fecal Occult Blood Test 01/12/1997 Sigmoidoscopy 01/12/1997 Adult Wellness Visit 11/28/2019 11/27/2018 Depression Screening 02/18/2021 02/19/2020 Colonoscopy 05/26/2025 05/26/2020, 08/2020, 04/10/2015, Additional history exists Colorectal Cancer Screening 05/26/2025 Lipid Panel 03/03/2026 03/03/2021, 02/22, 02/09/2017, Additional history exists Zoster Vaccines Completed 03/21/2019, 10/2018, 02/05/2015 Pneumococcal Vaccine: 65+ Years Completed 02/19/2020, 04/21/2017 RETIRED - COLONOSCOPY-EVERY 5 YRS AGES 18-100 Discontinued 05/26/2020, 05/26/2020, 04/10/2015, Additional history exists Influenza Vaccine (FLU shot) Completed 02/20/2024, 03/21/2023, 04/02/2022, Additional history exists COVID-19 Vaccine Completed 02/23/2024, , 06/13/2020 HPV (Gardasil) Vaccine Aged Out No lo nger eligible based on patient's age to complete this topic Hepatitis B Vaccine Aged Out No longe r eligible based on patient's age to complete this topic MENINGOCOCCAL (MENACTRA/MENVEO) Aged Out No longer eligible based on patient's age to complete this topic documented as of this encounter Medical Devices Implanted Type Area Practical Ministries Professor Device Identifier Shelf Expiration Date Model / Serial / Lot Port Powerflow 9.6fr - [id number] Implanted:Qty : 1 on 03/15/2023 at [facility] CR BARD : PERIPHERAL VASCULAR [id number] 10/21/2023 [id number] / / [id number] Power Port 8fr Sngl Lumen Plas - [id number] Implanted:Qty : 1 on 03/15/2023 at [facility] CR BARD : PERIPHERAL VASCULAR [id number] 03/22/2024 [id number] / / [id number] Lens Li61ao 13.00mm 18.00 - [id number] - [id number] Implanted:Qty : 1 on 02/02/2024 by Andre Swartz MD at [facility] Right: Eye BAUSCH & LOMB 08/20/2028 [id number] / [id number] / [id number] Lens Li61ao 13.00mm 17.50 - [id number] - [id number] Implanted:Qty : 1 on 02/16/2024 by Andre Swartz MD at [facility] Left: Eye BAUSCH & LOMB 07/20/2028 [id number] / [id number] / [id number] documented as of this encounter Visit Diagnoses Diagnosis BPH with obstruction/lower urinary tract symptoms Hypertrophy of prostate with urinary obstruction and other lower urinary tract symptoms (LUTS) documented in this encounter Advance Directives Documents on File Type Date Recorded Patient Gas Welder Expl anation Power of Medical Records Auditor 06/20/2018 POWER OF A TTORNEY POA: [...] Power of Attor ephraim? No Care Teams Health Benefits Specialist Relationship Specialty Start Date End Date Theresa Johnson MD [address] [place] [address] PCP - General Family Medicine 12/19/23 documented as of this encounter
--- OUTSIDE RECORDS SUMMARY | 2024-06-23 06:16 | External Medical Summary | Summary of Care ---
Author Name Unknown Organization [facility] Address [address] [place] [address] Phone [phone] Care Team Providers Care Professor Of Visual Arts Name Role Phone Theresa Johnson MD Primary Care Provider [phone] Reason for Visit * Reason Onset Date Comments Appointment 04/09/2024 Encounter Details Date Type Department Care Team (Late st Contact Info) Description 04/09/2024 Telephone Neurology [place], [place] [address] [place] [address] Babita Olvera, DNP [address] [place] [address] Appointment Allergies Active Allergy Reactions Criticality Noted Date Comments Benzalkonium Chloride 02/21/2015 Merthiolate "the orange kind" Caused a rash Milk (Cow) Diarrhea 02/05/2015 documented as of this encounter (statuses as of 04/10/2024) Medications ALEVE 220 MG PO CAPS as needed Active Fluticasone Propionate 50 MCG/ACT Nasal Suspension Administer 1 [place] into nostril in the morning. 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 on [...] --- Protocol: SCP - EFGARTIGIMOD ONEYDA (VYVGART) [id number] --- Drug to be Infused: Vyvgart --- [...] [place] [phone] Nathan, Pharmacist Neurology [address] [place] [address] [place] [id number] 04/23/2024 9:00 AM EST Telemedicine Neurology [address] [place] [phone] Nathan, Pharmacist Neurology [address] [facility] [place] [address] 05/03/2024 9:30 AM EST Hem/Onc Treatment Hematology/Oncology Treatment, [place] [address] [facility], [place] [phone] Krista, Chair 2 Hem Onc Scenery [address] [place] [address] 05/04/2024 9:45 AM EST Office Visit Dermatology [facility] [place] [address] [place] [address] Marshall Henson MD [address] [place] [address] 05/08/2024 10:30 AM EST Imaging [facility], a service of [address] [place] [address] 05/10/2024 9:30 AM EST Hem/Onc Treatment Hematology/Oncology Treatment, [place] [address] [facility], [place] [id number] Krista, Chair 10 Hem Onc Scenery [address] [place], [place] [address] 05/18/2024 9:30 AM EST Hem/Onc Treatment Hematology/Oncology Treatment, [place] [address] [facility], [place] [phone] Krista, Chair 10 Hem Onc Scenery [address] [place], [place] [address] 05/25/2024 9:30 AM EST Hem/Onc Treatment Hematology/Oncology Treatment, [place] [address] [facility], [place] [phone] Krista, Chair 8 Hem Onc Scenery [address] [place] [address] 06/18/2024 11:30 AM EST Office Visit Urology, [facility] [address] [place] [address] Ramesh Phan MD [address] [place] [address] 06/22/2024 10:40 AM EST Office Visit [facility] [address] [place] [address] Theresa Johnson MD [address] [place] [address] 07/25/2024 11:00 AM EST Office Visit Neurology [facility] [place] [address] [place] [phone] Maksim Wright [...] this encounter Medical Devices Implanted Type Area Testing Lead Device Identifier Shelf Expiration Date Model / Serial / Lot Port Powerflow 9.6fr - [id number] Implanted:Qty : 1 on 03/15/2023 at [facility] : PERIPHERAL VASCULAR [id number] 10/21/2023 [id number] / / [id number] Power Port 8fr Sngl Lumen Plas - [id number] Implanted:Qty : 1 on 03/15/2023 at [facility] [employer] : PERIPHERAL VASCULAR [id number] 03/22/2024 [id number] / / [id number] Lens Li61ao 13.00mm 18.00 - [id number] - [id number] Implanted:Qty : 1 on 02/02/2024 by Andre Swartz MD at [facility] Right: Eye [employer] 08/20/2028 [id number] / [id number] / [id number] Lens Li61ao 13.00mm 17.50 - [id number] - [id number] Implanted:Qty : 1 on 02/16/2024 by Andre Swartz MD at [facility] Left: Eye [employer]CH [employer] LOMB 07/20/2028 [id number] / [id number] / [id number] documented as of this encounter Visit Diagnoses Diagnosis Myasthenia gravis (HCC)- Primary Myasthenia gravis without exacerbation documented in this encounter Advance Directives Documents on File Type Date Recorded Patient Scientific Informatics Project Leader Expl anation Power of Hardware Developer 06/20/2018 POWER OF A TTORNEY POA: EDEL- [...] Power of Attor ephraim? No Care Teams Professor Of Visual Arts Relationship Specialty Start Date End Date Theresa Johnson MD [address] [place] [address] PCP - General Family Medicine 12/19/23 documented as of this encounter
--- OUTSIDE RECORDS SUMMARY | 2024-06-23 06:16 | External Medical Summary | Summary of Care ---
Author Name Unknown Organization [facility] Address [address] [place] [address] Phone [phone] Care Team Providers Care Clothing Man Name Role Phone Theresa Johnson MD Primary Care Provider [phone] Encounter Details Date Type Department Care Team (Late st Contact Info) Description 04/09/2024 Telephone Neurology [facility] [address] [place] [address] [place] [address] Babita Olvera, LUCY [address] [place] [address] Allergies Active Allergy Reactions Criticality Noted Date Comments Benzalkonium Chloride 02/21/2015 Merthiolate "the orange kind" Caused a rash Milk (Cow) Diarrhea 02/05/2015 documented as of this encounter (statuses as of 04/09/2024) Medications ALEVE 220 MG PO CAPS as needed Active Fluticasone Propionate 50 MCG/ACT Nasal Suspension Administer 1 [place] into nostril in the morning. 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 Not on file Not on file Not [...] State Tory Hoang [address] [place] [address] [address] Theresa Johnson MD [address] [place] [address] [address] 04/16/2024 7:15 AM EST Pharmacy Neurology Nathan [address] [place] [phone] Nathan, Pharmacist Neurology [address] [place] [address] 04/23/2024 9:00 AM EST Telemedicine Neurology Nathan [address] [place] [phone] Nathan, Pharmacist Neurology [address] [place] [address] 05/04/2024 9:45 AM EST Office Visit Dermatology [facility] [address] [place] [address] Marshall Henson MD 200 [facility] [place] [address] 05/08/2024 10:30 AM EST Imaging [facility], a service of [address] [place] [address] 06/18/2024 11:30 AM EST Office Visit Urology, [facility] [address] [place] [address] Ramesh Phan MD [address] [place] [address] 06/22/2024 10:40 AM EST Office Visit Family Practice [facility] [address] [place] [address] Theresa Johnson MD [address] [facility] [place] [address] 07/25/2024 11:00 AM EST Office Visit Neurology Nathan [address] [place] [phone] Maksim Wright MD [address] [facility] [place] [address] Scheduled Procedures Name Priority Associated Diagnoses Date/Ti [...] this encounter Medical Devices Implanted Type Area Installation Engineer Device Identifier Shelf Expiration Date Model / Serial / Lot Port Powerflow 9.6fr - [id number] Implanted:Qty : 1 on 03/15/2023 at [facility] : PERIPHERAL VASCULAR [id number] 10/21/2023 [id number] / / [id number] Power Port 8fr Sngl Lumen Plas - [id number] Implanted:Qty : 1 on 03/15/2023 at [facility] [employer] : PERIPHERAL VASCULAR [id number] 03/22/2024 [id number] / / [id number] Lens Li61ao 13.00mm 18.00 - [id number] - [id number] Implanted:Qty : 1 on 02/02/2024 by Andre Swartz MD at [facility] Right: Eye [employer] 08/20/2028 [id number] / [id number] / [id number] Lens Li61ao 13.00mm 17.50 - [id number] - [id number] Implanted:Qty : 1 on 02/16/2024 by Andre Swartz MD at [facility] Left: Eye [employer]CH [employer] LOMB 07/20/2028 [id number] / [id number] / [id number] documented as of this encounter Advance Directives Documents on File Type Date Recorded Patient Laboratory Courier Expl anation Power of Furniture Finisher 06/20/2018 POWER OF A TTORNEY POA: [...] Power of Attor ephraim? No Care Teams Clothing Man Relationship Specialty Start Date End Date Theresa Johnson MD [address] [facility] [place] [place] [address] PCP - General Family Medicine 12/19/23 documented as of this encounter
--- OUTSIDE RECORDS SUMMARY | 2024-06-23 06:17 | External Medical Summary | Summary of Care ---
Author Name Unknown Organization [facility] Address [address] [place] [address] Phone [phone] Care Team Providers Care Parliamentary Librarian Name Role Phone Theresa Johnson MD Primary Care Provider [phone] Reason for Visit * Auth/Cert Specialty Diagnoses / Procedures Referred By Joel t Referred To Contact Diagnoses 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 eye 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 eye [H25.812] Procedures REMOVE CATARACT, INSERT LENS PROSTH LEFT EXTRACAPSULAR CATARACT REMOVAL WITH INTRAOCULAR LENS Andre Swartz MD [address] [place] [address] Or [facility] [address] [place] [address] Referral ID Status Reason Start Date Expiration Date Visits Re quested Visits Authorized [id number] Encounter Details Date Type Department Care Team (Latest Contact Info) Description 02/16/2024 8:28 AM EDT - 02/16/2024 10:28 AM EDT Hospital Encounter OR [facility], Operating Room [facility] [address] [place] [address] Andre Swartz MD [address] [place] [address] Discharge Disposition: Home - Self Care Allergies Active Allergy Reactions Criticality Noted Date Comments Benzalkonium Chloride 02/21/2015 Merthiolate "the orange kind" Caused a rash Milk (Cow) Diarrhea 02/05/2015 documented as of this encounter (statuses as of 02/16/2024) Medications Medication Sig Dispensed Refills Start Date End Date Status ALEVE 220 MG PO CAPS as needed Active Fluticasone Propionate 50 MCG/ACT Nasal Suspension Administer 1 Lyons into nostril in the morning. Active FIBER [...] morning daily 30 Tablet 5 06/08/2022 Active Tamsulosin HCl 0.4 MG Oral Capsule (Flomax)Indications :BPH with obstruction/lower urinary tract symptoms Take 1 Capsule by mouth in the morning. 90 Capsule 3 03/16/2023 Active Mirtazapine 15 MG Oral Tablet (Remeron)Indication s:Adjustment insomnia Take 1 Tablet by mouth at bedtime. 90 Tablet 1 11/21/2023 Active Alendronate Sodium 70 MG Oral Tablet (Fosamax)Indication s:High risk for fracture due to osteoporosis by DEXA scan Take 1 Tablet by mouth once a week. with 8 oz. water 30 minutes before first meal of the day. Remain upright for 30 min after taking tablet 5 Tablet 11 01/10/2024 Active predniSONE 5 MG Oral Tablet (Deltasone) Take 10 mg alternating with 5 mg every other day 45 Tablet 5 01/25/2024 Active documented as of this encounter (statuses as of 02/16/2024) Active Problems Problem Noted Date Diagnosed Date [...] as of this encounter (statuses as of 02/16/2024) Resolved Problems Problem Noted Date Diagnosed Date Resolved Date Myasthenia gravis with exacerbation 12/14/2022 12/19/2023 Nonallopathic lesion of abdo men and other sites, not elsewhere classified 11/22/2003 06/30/19 12 documented as of this encounter (statuses as of 02/16/2024) Immunizations Name Administration Dates Next Due COVID-19 mRNA, LNP-s, No Pre serve, 2-Dose Series (Moderna) 07/13/2020,06/13/2020 Pneumococcal Conjugate Vacc, 13 Valent (Prevnar) 04/21/2017 Pneumococcal Polysaccharide PPV23 (Pneumovax) 02/19/2020 Seasonal Influenza, PF, 6 M & above, IM , (FluLaval or Fluzone) 04/02/2022,02/18/2021,03/27/2019,03/27,03/01/2017 Seasonal Influenza, Quadriva lent, No Preserve, IM 05/11/2016 Seasonal Influenza, Trivalen t, (IIV3), with Preserv, (Fluzone) 02/05/2015,05/10/2014,03/16/2013 Seasonal Influenza, Trivalen t, Adjuvanted, 65+ YRS, [...] Sign Reading Time Taken Comments Blood Pressure 117/72 02/16/2024 10:18 AM EDT Pulse 77 02/16/2024 10:18 AM EDT Temperature 36.2 C (97.2 F) 02/16/2024 10:18 AM E DT Respiratory Rate 18 02/16/2024 10:18 AM EDT Oxygen Saturation 99% 02/16/2024 10:18 AM EDT Inhaled Oxygen Concentration - - Weight 90.7 kg (200 lb) 02/16/2024 8:46 AM EDT Height 170.2 cm (5' 7.01") 02/16/2024 8:46 AM ED T Body Mass Index 31.32 02/16/2024 8:46 AM EDT documented in this encounter Discharge Instructions * Discharge Instr - AVS* Andre Swartz MD - 02/07/2024 7:44 AM EDT Discharge Date: 02/16/24 You may call Doctor Maxime at during business hours and for after-hours emergencies. Your attending physician at the time of your discharge was: Andre Swartz MD The information below provides you with the instructions and the list of medications you need to betaking following discharge from the hospital. If you have any questions, please ask before leaving.Please carry this letter with you when you see your doctor in the clinic. Diet: Normal diet Activity: No heavy lifting, pushing, pulling (anything over 10 lbs.), no bending at the waist or straining for 1 week. Driving: Do not drive for 24 hours after surgery. Date you may return to work or school: N/A Follow Up - Return appointment(s): 02/17/24 @2:[address] Jose Brock's [facility] office See your medical program specialist in 1day(s). SPECIAL INSTRUCTIONS Remove eye patch and begin eye drops @ [facility] for healing and infection prevention. Duration PGB- 1 drop 4 times a day for today. X X X X Day of surgery. 8 am (Breakfast) 12 noon (Lunch) 6 pm (Supper) 10 pm (Bedtime) PGB- 1 drop 4 times a day for 1 week. X X X X 1 Week PGB- 1 drop 3 times a day for 1 week. X X X 1 Week PGB- 1 drop 2 times a day for 1 week. X X 1 Week PGB- 1 drop once a day for 1 week. X 1 Week 1. Use your eye drops 4 times on the afternoon and evening after your surgery. 2. DO NOT RUB OR PUT PRESSURE ON THE EYE for 4 weeks after surgery. 3. Please keep your surgical eye closed on the ride home and then at home for a total of 1-2 hours after surgery. 4. You may sit, walk, watch TV, read, and perform routine activities. 5. NO exercise for 2 weeks after surgery. It is OK to walk. 6. DO NOT go underwater for 2 weeks after surgery, e.g. no swimming or hot-tubs. 7. It is OK to shower, wash your face, shave, shampoo your hair the day AFTER Surgery (a few drops of water are OK). 8. Continue warm compresses for 5 minutes, 2 times per day. 9. Sleep with the shield taped over your eyes for 2 weeks after surgery. 10. NO eye make-up for 2 weeks after surgery. 11. DO NOT make any eye drop changes to your other eye. 12. Dr. Swartz suggests that all patients remain in the area for a minimum of the one week following surgery if traveling within the [place]. Patients traveling internationally should wait 4 weeks. 13. You may return to work soon after surgery; please discuss this with Dr. Swartz. 14. You can expect the following after surgery during the first 4-6 weeks. Itchiness/scratchiness around the eye. Redness in the white of the eye. Double vision/ Fluctuation in vision. Droopiness of the eyelid. 15. Your vision should gradually improve in days and weeks after surgery. If your vision is gettingworse (not better), or your eye more red, or you are having increasing pain, or you are having new floaters or flashing lights, CALL US IMMEDIATELY. IF YOU HAVE ANY PROBLEMS, QUESTIONS OR CONCERNS, DO NOT HESITATE TO CALL US AT [phone] AT ANY TIME I, Andre Swartz MD personally performed the services described in this documentation. All medical record entries made by the scribe were at my direction and in my presence. I have reviewed the chart and agree that the record reflects my personal performance and is accurate and complete. Andre ding MD. 02/16/2024. 10:01 AM. 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 Discharge instructions were given to the patient. Note has been documented by Gladis Hayes on 02/16/2024 documented in this encounter H&P Notes * Andre Swartz MD - 02/16/2024 7:45 AM EDT Images from the original note were not included. Office Visit 01/16/2024 Family Practice [facility] Miriam Marx PA-C Family Medicine Age-related cataract of both eyes, unspecified age-related cataract type +4 more Dx pre-op exam; Referred by Self Reason for Visit Progress Notes Miriam Marx PA-C (Physician Paper Tester - Certified) Family Medicine Expand All Collapse All Subjective: Giorgio Sosa is a 74 year old male. Presents at the request of Dr Swartz for medical clearance for cataract removal. PHM: Problem List Patient Active Problem List Diagnosis Family history of malignant neoplasm of prostate Family history of other cardiovascular diseases Allergic rhinitis due to pollen ADVANCE DIRECTIVE INFORMATION Headache FH: prostate cancer BPH with obstruction/lower urinary tract symptoms Prostate cancer (HCC) History of basal cell cancer Ptosis of right eyelid Elevated prostate specific antigen (PSA) Double vision Myasthenia gravis (HCC) Facial weakness Diplopia Current Medications Current Outpatient Medications Medication Sig Dispense Refill ALEVE 220 MG PO CAPS as needed Fluticasone Propionate 50 MCG/ACT Nasal Suspension Administer 1 Lyons into nostril in the morning. FIBER ADULT GUMMIES 2 g CHEW Take 2 Each by mouth daily. SUMAtriptan Succinate 100 MG Oral Tablet TAKE 1 TABLET AT ONSET OF MIGRAINE. MAY REPEAT IN 2 HOURS BUT NOT MORE. 10 Tab 3 Triamcinolone Acetonide 0.5 % External Cream APPLY TO AFFECTED AREAS TWICE DAILY. (Patient not taking: Reported on 09/13/2023) 60 g 1 Calcium-Vitamin D-Minerals 600-400 MG-UNIT Oral Tablet Chewable Take 1 tablet in the morning daily 30 Tablet 5 Tamsulosin HCl 0.4 MG Oral Capsule (Flomax) Take 1 Capsule by mouth in the morning. 90 Capsule 3 predniSONE 10 MG Oral Tablet (Deltasone) TAKE 1 TABLET BY MOUTH DAILY (Patient taking differently: Take 0.5 Tablets by mouth in the morning. TAKE 1 TABLET BY MOUTH DAILY.) 30 Tablet 2 Mirtazapine 15 MG Oral Tablet (Remeron) Take 1 Tablet by mouth at bedtime. 90 Tablet 1 Alendronate Sodium 70 MG Oral Tablet (Fosamax) Take 1 Tablet by mouth once a week. with 8 oz. water30 minutes before first meal of the day. Remain upright for 30 min after taking tablet 5 Tablet 11 No current facility-administered medications for this visit. Past Medical History Past Medical History: Diagnosis Date Allergic disorder Allergy unspecified Allergic rhinitis due to pollen BPH with obstruction/lower urinary tract symptoms 06/30/2011 FAMILY HX WILLIAM.NEOPLASM PROSTATE 01/19/2001 Migraine Migraines,unspecified Prostate cancer (HCC) 04/28/2015 t1c Small volume sayda 6 Past Surgical History Past Surgical History: Procedure Laterality Date COLONOSCOPY, DIAGNOSTIC (RECTUM) 04/10/2015 adenomatous & hyperplastic polyps, diverticulosis, repeat 5 yrs/COLONOSCOPY FLEXIBLE PROXIMAL DIAGNOSTIC performed by Anjelica Lucas DO at ENDOSCOPY [facility] COLONOSCOPY, DIAGNOSTIC (RECTUM) 05/26/2020 adenomatous polyp, repeat 5 yrs / COLONOSCOPY FLEXIBLE PROXIMAL DIAGNOSTIC performed by Anjelica Lucas DO at ENDOSCOPY [facility] COLONOSCOPY, GI REFERRAL OP 2004 wnl-repeat 10 yrs COLORECTAL CANCER SCREEN;W/FLE 10/1998 wnl DENTAL SURGERY PROCEDURE NEC Dental Surgery Procedure IR APHERESIS ACCESS 03/15/2023 NEEDLE/PUNCH BIOPSY OF PROSTATE 04/21/2015 Prostate,Needle/Punch Biopsy REMOV ELSIE HOMERO JAZMINE ACC DEV,WITH N/A 01/06/2024 REMOVAL OF TUNNELED CENTRAL VENOUS ACCESS DEVICE WITH PORT performed by Osvaldo Aden MD at OR [facility] REMOVE TONSILS & ADENOIDS, AGE 12+ SKIN LESIONS BIOPSY,ADDED 05/02/2018 chest area basal cell removed by Dr Mejia Allergies Review of patient's allergies indicates: Allergen Reactions Merthiolate [Benzalkonium Chloride] Merthiolate "the orange kind" Caused a rash Milk [Milk (Cow)] Diarrhea Family History Family History Problem Relation Name Age of [...] Known Problems Other No Known Problems Son Family Status Family Status Relation Status Mo diabetes Fa Sis Alive Sis Alive UNCLE (Not Specified) UNCLE (Not Specified) UNCLE (Not Specified) Other Alive Son Alive Social History - Alcohol and Tobacco Use Social History Tobacco Use Smoking status: Never Passive exposure: Past Smokeless tobacco: Never Tobacco comments: Mother smoked around as child no current passive smoke exposure Substance Use Topics Alcohol use: Not Currently Comment: occ Vaping History Vaping/E-Cigarette Use Vaping/E-Cigarette Use Never User Passive Exposure No Counseling Given? No Vaping History Vaping/E-Cigarette Substances Vaping History Vaping/E-Cigarette Devices Review of Systems: General: No change in weight, No weakness, No fatigue, and No fevers, sweats, or chills Head: No significant headache and No recent significant head injury Eyes: No eye pain, redness, discharge, or excessive tearing, No h/o glaucoma, + wears glasses, + h/o cataracts, and + diplopia due to myasthenia Ears: No recent change in hearing, No tinnitus or vertigo, No ear pain, and No ear discharge Nose: No h/o frequent colds or sinusitis, No nasal stuffiness, No h/o hay fever, and No significantepistaxis Throat/Oropharynx: No teeth or gum problems, No bleeding gums, No tongue complaints, No sore throat, and No recent change in voice or hoarseness Neck: No complaint of lumps in neck, No swollen glands, No recent swelling in thyroid area, and No significant pain in neck Respiratory: No cough, sputum, or hemoptysis, No wheezing, No shortness of breath, and No recent change in breathing Cardiac: No chest pain, No shortness of breath, No dyspnea on exertion, No orthopnea, No paroxysmalnocturnal dyspnea, No edema, No palpitations, and No syncope Gastrointestinal: No dysphagia, No significant heartburn, No significant change in appetite, No nausea, vomiting, diarrhea, or constipation, No hematemesis, No blood in stools or black tarry stools, No abdominal bloating or early satiety, and No abdominal pain Urinary: No urinary frequency, No dysuria, No hematuria, No urinary urgency, No polyuria, No nocturia, No incontinence, No hesitancy, and No sensation of incomplete voiding Hematologic: No anemia, No easy bruising or abnormal bleeding, and No history of transfusion Neurologic: No fainting or blackouts, No seizures, No paralysis or focal weakness, No numbness or tingling, No tremors, and No significant problems with memory Objective: There were no vitals taken for this visit. Physical Exam: General: alert, healthy, no distress, well nourished, well developed, comfortable, and cooperative Head: Normocephalic, No masses, lesions, tenderness or abnormalities Eye Exam: PERRLA, extraocular movements intact, conjunctiva are pink and non-injected Ears: External ears normal, Canals clear, TM's Normal Nose: no mucosal erythema, no mucosal edema, no purulent discharge Oropharynx: no exudate, no erythema, lips, buccal mucosa, and tongue normal, and mucous membranes are moist Neck: supple, no adenopathy, no bruits, thyroid normal size, non-tender, without nodularity Heart: regular rate & rhythm, no murmur, and no gallops Lungs: chest symmetric with normal AP diameter, no chest deformities noted, normal respiratory rateand rhythm, no chest wall tenderness, diaphragmatic excursion normal, lungs clear to auscultation Abdomen: abdomen soft, non-tender, normal bowel sounds, no masses or organomegaly, no rebound or guarding, no CVA tenderness, and no bladder distention identified Back: back symmetric, no curvature, no costovertebral angle tenderness, no curvature to forward bending, no skin lesions, erythema or scars, Normal heel walk and toe walk, without evidence of muscle weakness Extremities: less than 2 second capillary refill, no joint deformities, effusion, or inflammation, no edema, no skin discoloration, no clubbing, no cyanosis Neuro Exam: alert & oriented x 3 with fluent speech, no focal motor/sensory deficits, gait normal Skin: skin color, texture, turgor are normal, no rashes or significant lesions ASSESSMENT: Diagnosis for procedure: cataracts Preoperative Examination PLAN: Patient is medically cleared. Perioperative recommendations regarding medications and treatment include medications as directed. This assessment was forwarded to Dr Swartz. Miriam Marx PA-C 02/09/2024 The above stated has been cleared for additional cataract surgery on 02/16/2024. Miriam Marx Physician Paper Tester - Certified Other Notes All notes Nursing Note from Nanci Cornelius CMA Additional Documentation Vitals: BP 114/76 Pulse 85 Temp 36.5 C (97.7 F) Ht 1.702 m (5' 7.01") Wt 90.8 kg (200 lb 4 oz) SpO2 96% BMI 31.36 kg/m BSA 2.07 m Flowsheets: Nurse Rooming Tool, Priorities Wizard Content Encounter Info: Billing Info, History, Allergies, Detailed Report, Questionnaires Patient Handouts No notes of this type exist for this encounter. Orders Placed None Medication Changes None Medication List Visit Diagnoses Age-related cataract of both eyes, unspecified age-related cataract type Pre-op examination BPH with obstruction/lower urinary tract symptoms Diplopia Myasthenia gravis (HCC) Problem List Note has been documented by Gladis Hayes on 02/16/2024 * Andre Swartz MD - 02/16/2024 7:45 AM EDT HISTORY & PHYSICAL INTERVAL NOTE [facility] [address] [place] [address] History and Physical Update: Name: Giorgio Sosa Location: Room/bed info not found Date: 02/16/2024 Time: 7:45 AM DATE OF HISTORY AND PHYSICAL: 01/16/24 BP: 148 mmHg/62 mmHg (02/16/24845) Pulse: 74 (02/16/24845) Resp: 18 (02/16/24845) Temp: 36.11 C (02/16/24845) Temp Summary: Temp Min: 36.1 C (97 F) Max: 36.1 C (97 F) SpO2: 99 % (02/16/24845) O2 flow rate: Supplemental O2 Delivery: Room Air, None (02/16/24845) Does patient take a beta eliane? No Did patient stop anticoagulants? No Heart Exam: regular rate and rhythm Lung Exam: clear to auscultation bilaterally Other Pertinent Physical Exam: none I have reviewed the H&P previously performed and examined the patient today. There are no new findings noted. documented in this encounter Nursing Notes * Kimberly Santacruz RN - 02/16/2024 10:27 AM EDT Patient awake and oriented x3. Denies pain. No drainage from eye noted. Tolerating PO fluids. Discharge instructions given and patient verbalizes understanding. Patient ambulated to private vehicle and discharged to home. * Kimberly Santacruz RN - 02/16/2024 10:03 AM EDT Patient transferred to pacu 2 status post left cataract removal and lens placement. No drainage noted. Patient awake. Denies pain and nausea. Respirations are even and unlabored on room air. Abdomen soft and non distended. Vital signs stable. Gingerale taken and retained. * Olivia Mesa RN - 02/16/2024 8:47 AM EDT Patient agrees with listed procedure, consent to be signed. documented in this encounter OR Notes * OR Surgeon - Andre Swartz MD - 02/16/2024 10:04 AM EDT [facility] [address] [address] OPERATIVE REPORT Name: Giorgio Sosa Date: 02/16/2024 Time: 10:04 AM Location: [facility] Service: Ophthalmology Date of Operation: 02/16/2024 Pre-op Diagnosis: Visually significant combined cataract, left eye Post-op Diagnosis: Same Operative Procedure: Phacoemulsification with posterior chamber intraocular lens implantation, lefteye (67780 Standard Cataract) Surgeon: Andre Swartz MD Assistants: None Anesthesia: topical Implant/Graft: B&L: 17.5 [id number]; SN: [id number] Complications: none Drains: none Urine Output: minimal Specimen and Disposition: none Estimated Blood Loss: minimal Indications: The patient has noticed a decrease in their visual acuity now interfering with their activities of daily living. Slit-lamp examination revealed a visually significant lens opacity which appears to be a significant component of the decrease in visual acuity. After discussion of risks, benefits, and alternatives, the patient has elected to proceed with cataract extraction and lens implantation. Description of Procedure: The patient was brought to the operating room. A "time out" was called toconfirm the correct patient, the correct eye, the correct diagnosis, the correct procedure, relevant allergies and surgical considerations. The patient's eye was prepped and draped in the usual fashion. A wire lid speculum was placed between the lids. A paracentesis site was made, approximately three oclock hours away from the incision site. Intracameral lidocaine was injected into the anterior chamber. A clear cornea incision was then made with a keratome, and then viscoelastic was injected into the anterior chamber. A continuous curvilinearcapsulorrhexis was created using a cystitome and Utrata forcep. Hydrodissection was then performed using balanced salt solution. The nucleus was emulsified using the phacoemulsification handpiece. The cortex was removed using the automated irrigation aspiration unit. Viscoelastic was then used to deepen the capsular bag. A posterior chamber lens was then inserted into the capsular bag. The capsular bag was polished and then excess viscoelastic was aspirated using the irrigation aspiration unit. The wound was hydrated, tested and found to be water tight. Intracameral Moxifloxacin was given. After the post-operative drops were given, including topical antibiotic, and steroid, a shield was placed. The patient tolerated the procedure well. Condition: The patient left the operating room in good condition. Disposition: In and Out Recovery Unit Attestation: I performed the procedure Note has been documented by Gladis Hayes on 02/16/2024 documented in this encounter Plan of Treatment Upcoming Encounters Date Type Department Care Team (Late st Contact Info) Description 02/22/2024 9:00 AM EDT Telemedicine Neurology [address] [place] [phone] Nathan, Pharmacist Neurology [address] [facility] [place] [address] 03/05/2024 10:30 AM EDT Hem/Onc Treatment Hematology[address] [id number] 03/12/2024 11:30 AM EDT Hem/Onc Treatment Hematology/[address] [phone] Krista, Chair 7 Hem Onc Scenery [address] [facility] [place] [address] 03/19/2024 10:30 AM EDT Hem/Onc Treatment Hematology/[address], [address] [address] Krista, Chair 4 Hem Onc Scenery [address] [place] [address] 03/26/2024 10:30 AM EST Hem/Onc Treatment Hematology/[address] [address] Krista, Chair 8 Hem Onc Scenery [address] [place] [address] 05/04/2024 9:45 AM EST Office Visit Dermatology [facility] Krista [place] [address] [place] [address] Marshall Henson MD [address] [place] [address] 06/18/2024 11:30 AM EST Office Visit Urology, [facility] [address] [facility] [place] [address] Ramesh Phan MD [address] [place] [address] 06/22/2024 10:40 AM EST Office Visit Family Practice [facility] [address] [place] [address] Theresa Johnson MD [address] [facility] [place] [address] 07/25/2024 11:00 AM EST Office Visit Neurology Gerardo [address] [place] [address] [place] [address] Maksim Wright MD [address] [place] [facility] [place] [place] [address] Scheduled Procedures Name Priority Associated Diagnoses Date/Ti me EXTRACAPSULAR CATARACT REMOVAL WITH INTRAOCULAR LENS 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 eye 02/16/2024 9:33 AM EDT COLONOSCOPY FLEXIBLE PROXIMAL DIAGNOSTIC Recall History of colon polyps Health Maintenance Due Date Last Done Comments Cologuard 01/12/1997 Fecal Occult Blood Test 01/12/1997 Sigmoidoscopy 01/12/1997 Adult Wellness Visit 11/28/2019 11/27/2018 Depression Screening 02/18/2021 02/19/2020 COVID-19 Vaccine ( season) 2024 07/13/2020, 06/13/2020 Influenza Vaccine (FLU shot) (#1) 2024 03/21/2023, 04/02/2022, 02/18/2021, Additional history exists Colonoscopy 05/26/2025 05/26/2020, 08/2020, 04/10/2015, Additional history exists Colorectal Cancer Screening 05/26/2025 Lipid Panel 03/03/2026 03/03/2021, 02/22, 02/09/2017, Additional history exists Zoster Vaccines Completed 03/21/2019, 10/2018, 02/05/2015 Pneumococcal Vaccine: 65+ Years Completed 02/19/2020, 04/21/2017 RETIRED - COLONOSCOPY-EVERY 5 YRS AGES 18-100 Discontinued 05/26/2020, 05/26/2020, 04/10/2015, Additional history exists HPV (Gardasil) Vaccine Aged Out No lo nger eligible based on patient's age to complete this topic Hepatitis B Vaccine Aged Out No longe r eligible based on patient's age to complete this topic MENINGOCOCCAL (MENACTRA/MENVEO) Aged Out No longer eligible based on patient's age to complete this topic documented as of this encounter Medical Devices Implanted Type Area [place]ock Tower Loader Device Identifier Shelf Expiration Date Model / Serial / Lot Port Powerflow 9.6fr - [id number] Implanted:Qty : 1 on 03/15/2023 at [facility] CR BARD : PERIPHERAL VASCULAR [id number] 10/21/2023 [id number] / / [id number] Power Port 8fr Sngl Lumen Plas - [id number] Implanted:Qty : 1 on 03/15/2023 at [facility] CR BARD : PERIPHERAL VASCULAR [id number] 03/22/2024 [id number] / / [id number] Lens Li61ao 13.00mm 18.00 - [id number] - [id number] Implanted:Qty : 1 on 02/02/2024 by Andre Swartz MD at [facility] Right: Eye [employer] LOMB 08/20/2028 [id number] / [id number] / [id number] Lens Li61ao 13.00mm 17.50 - [id number] - [id number] Implanted:Qty : 1 on 02/16/2024 by Andre Swartz MD at [facility] Left: Eye BAUSCH [employer] LOMB 07/20/2028 [id number] / [id number] / [id number] documented as of this encounter Administered Medications Inactive Administered Medications - up to 3 most recent administrations Medication Order MAR Action Action Date Dose Rate Site Acetaminophen (Tylenol) tab 650 mg 650 mg, Oral, PRN Pain, Mild, Starting on Ambar 02/16/24 at 1029, Until Ambar 02/16/24 at 1430, For 1 dose, Maximum of 4 grams (4000 mg) per day., Post-op Diclofenac Sodium (Voltaren) 0.1 % ophthalmic solution 1 Drop 1 Drop, Left eye, Q5 MINUTES, First dose on Ambar 02/16/24 at 0915, Last dose on Tue02/16/24 at 0925, For 3 doses, PRE-OP: One drop to left eye every 5 minutes for 3 doses, Pre-Op Given 02/16/2024 9:00 AM EDT 1 Drop Given 02/16/2024 8:53 AM EDT 1 Drop Given 02/16/2024 8:48 AM EDT 1 Drop isolyte-S pH 7.4 infusion Intravenous, at 100 mL/hr, Plasma-LYTE 148, isolyte-S, and isolyte-S pH 7.4 are considered equivalent - including for MAR barcode scanning., CONTINUOUS, Starting on Ambar 02/16/24 at 0915, Until Ambar 02/16/24 at 1430, Pre-Op Restarted 02/16/2024 9:45 AM EDT Continue from Pre-Op 02/16/2024 9:40 AM EDT 100 mL/hr New Bag 02/16/2024 9:18 AM EDT 100 mL/hr moxifloxacin (Vigamox) 0.5 % ophthalmic solution 1 Drop 1 Drop, Left eye, Q5 MINUTES, First dose on Ambar 02/16/24 at 0915, Last dose on Tue02/16/24 at 0925, For 3 doses, PRE-OP: One drop to left eye every 5 minutes for 3 doses, Pre-Op Given 02/16/2024 9:00 AM EDT 1 Drop Given 02/16/2024 8:53 AM EDT 1 Drop Given 02/16/2024 8:48 AM EDT 1 Drop proparacaine (Alcaine) 0.5 % ophthalmic solution 1 Drop 1 Drop, Left eye, ONCE, On Ambar 02/16/24 at 0915, For 1 dose, PRE-OP: 15 minutes prior to scheduled surgery time for 1 dose, Pre-Op Given 02/16/2024 8:48 AM EDT 1 Drop tropicamide 1%-cyclopentolate 1%-phenylephrine 2.5% ophthalmic solution 1 Drop 1 Drop, Left eye, Q5 MINUTES, First dose on Ambar 02/16/24 at 0915, Last dose on Ambar 02/16/24 at 0925, For 3 doses, Pre-Op Given 02/16/2024 9:00 AM EDT 1 Drop Given 02/16/2024 8:53 AM EDT 1 Drop Given 02/16/2024 8:48 AM EDT 1 Drop documented in this encounter Active and Recently Administered Medications Times are shown in EDT. Scheduled Medication Order 02/14/2024 02/15/2024 02/16/2024 Diclofenac Sodium (Voltaren) 0.1 % ophthalmic solution 1 Drop (COMPLETED) 1 Drop, Left eye, Q5 MINUTES, First dose on Ambar 02/16/24 at 0915, Last dose on Ambar 02/16/24 at 0925, For 3 doses, PRE-OP: One drop to left eye every 5 minutes for 3 doses, Pre-Op 0848 (Given - Provid er: Olivia Mesa RN)0853 (Given - Provider: Olivia Mesa RN)0900 (Given - Provider: Olivia Mesa RN) moxifloxacin (Vigamox) 0.5 % ophthalmic solution 1 Drop (COMPLETED) 1 Drop, Left eye, Q5 MINUTES, First dose on Ambar 02/16/24 at 0915, Last dose on Ambar 02/16/24 at 0925, For 3 doses, PRE-OP: One drop to left eye every 5 minutes for 3 doses, Pre-Op 0848 (Given - Provid er: Olivia Mesa RN)0853 (Given - Provider: Olivia Mesa RN)0900 (Given - Provider: Olivia Mesa RN) Povidone-Iodine (Betadine) 5 % 2 mL syringe ophthalmic solution 1 Drop 1 Drop, Left eye, ONCE, On Ambar 02/16/24 at 0915, For 1 dose, Pre-Op 0915 (Due) proparacaine (Alcaine) 0.5 % ophthalmic solution 1 Drop (COMPLETED) 1 Drop, Left eye, ONCE, On Ambar 02/16/24 at 0915, For 1 dose, PRE-OP: 15 minutes prior to scheduled surgery time for 1 dose, Pre-Op 0848 (Given - Provid er: Olivia Mesa RN) tropicamide 1%-cyclopentolate 1%-phenylephrine 2.5% ophthalmic solution 1 Drop (COMPLETED) 1 Drop, Left eye, Q5 MINUTES, First dose on Ambar 02/16/24 at 0915, Last dose on Ambar 02/16/24 at 0925, For 3 doses, Pre-Op 0848 (Given - Provid er: Olivia Mesa RN)0853 (Given - Provider: Olivia Mesa RN)0900 (Given - Provider: Olivia Mesa RN) Continuous Medication Order 02/14/2024 02/15/2024 02/16/2024 isolyte-S pH 7.4 infusion Intravenous, at 100 mL/hr, Plasma-LYTE 148, isolyte-S, and isolyte-S pH 7.4 are considered equivalent - including for MAR barcode scanning., CONTINUOUS, Starting on Ambar 02/16/24 at 0915, Until Ambar 02/16/24 at 1430, Pre-Op 0918 (New Bag - Prov ider: Olivia Mesa RN)0940 (Continue from Pre-Op - Provider: Eddie Hurley CRNA)0944 (Paused - Provider: Eddie Hurley CRNA - Comment: Switch to gravity)0945 (Restarted - Provider: Eddie Hurley CRNA)1005 (Stopped - Provider: Eddie Hurley CRNA) PRN Medication Order 02/14/2024 02/15/2024 02/16/2024 Acetaminophen (Tylenol) tab 650 mg 650 mg, Oral, PRN Pain, Mild, Starting on Ambar 02/16/24 at 1029, Until Ambar 02/16/24 at 1430, For 1 dose, Maximum of 4 grams (4000 mg) per day., Post-op balanced salt solution (Bss) ophthalmic solution (CANCELED) ONCE PRN INTRA PROCEDURE, Starting on Ambar 02/16/24 at 0952, Until Ambar 02/16/24 at 0959, Intra-Op 0952 (Given - Provid er: Andre Swartz MD - Comment: qs) DUOVISC inj KIT (CANCELED) ONCE PRN INTRA PROCEDURE, Starting on Ambar 02/16/24 at 0952, Until Ambar 02/16/24 at 0959, Intra-Op 0952 (Given - Provid er: Andre Swartz MD - Comment: qs) hydroxypropyl methylcellulose ([place]ucoat) 2 % intraocular inj (CANCELED) ONCE PRN INTRA PROCEDURE, Starting on Ambar 02/16/24 at 0952, Until Ambar 02/16/24 at 0959, Intra-Op 09 (Given - Provid er: Andre Swartz MD - Comment: qs) Lidocaine 1 % (PF) inj (CANCELED) ONCE PRN INTRA PROCEDURE, Starting on Ambar 02/16/24 at 0952, Until Ambar 02/16/24 at 0959, Intra-Op 951 (Given - Provid er: Andre Swartz MD - Comment: qs) Moxifloxacin intracameral inj (CANCELED) ONCE PRN INTRA PROCEDURE, Starting on Ambar 02/16/24 at 0952, Until Ambar 02/16/24 at 0959, Intra-Op 09 (Given - Provid er: Andre Swartz MD - Comment: qs) prednisoLONE Acetate (Pred Forte) 1 % ophthalmic suspension (CANCELED) ONCE PRN INTRA PROCEDURE, Starting on Ambar 02/16/24 at 0953, Until Ambar 02/16/24 at 0959, Intra-Op 0953 (Given - Provid er: Andre Swartz MD - Comment: qs) Tetracaine (Pontocaine) 0.5 % ophthalmic solution (CANCELED) ONCE PRN INTRA PROCEDURE, Starting on Ambar 02/16/24 at 0953, Until Ambar 02/16/24 at 0959, Intra-Op 0953 (Given - Provid er: Andre Swartz MD - Comment: qs) documented in this encounter Advance Directives Documents on File Type Date Recorded Patient [employer] Intermediary Expl anation Power of Bell Staff 06/20/2018 POWER OF A TTORNEY POA: EDEL- [...] Power of Attor ephraim? No Care Teams Parliamentary Librarian Relationship Specialty Start Date End Date Theresa Johnson MD [address] [place] [address] PCP - General Family Medicine 12/19/23 documented as of this encounter
--- OUTSIDE RECORDS SUMMARY | 2024-06-23 06:17 | External Medical Summary | Summary of Care ---
Author Name Unknown Organization [facility] Address [address] [place] [address] Phone [phone] Care Team Providers Care Cinder Man Name Role Phone Keke Johnson MD Primary Care Provider [phone] Reason for Visit * Reason Onset Date Comments Medication Refill 03/12/2024 Encounter Details Date Type Department Care Team (Late st Contact Info) Description 03/12/2024 Refill Family Practice [facility] [address] [facility] [place] [place] [address] Keke Johnson MD 200 [place] [address] High risk for fracture due to osteoporosis by DEXA scan Allergies Active Allergy Reactions Criticality Noted Date Comments Benzalkonium Chloride 02/21/2015 Merthiolate "the orange kind" Caused a rash Milk (Cow) Diarrhea 02/05/2015 documented as of this encounter (statuses as of 03/13/2024) Medications Medication Sig Dispensed Refills Start Date End Date Status ALEVE 220 MG PO CAPS as needed Active Fluticasone Propionate 50 MCG/ACT Nasal Suspension Administer 1 [place] into nostril in the morning. Active FIBER [...] 03/16/2023 Active Mirtazapine 15 MG Oral Tablet (Remeron)Indicatio ns:Adjustment insomnia Take 1 Tablet by mouth at bedtime. 90 Tablet 1 11/21/2023 Active predniSONE 5 MG Oral Tablet (Deltasone) [...] taking tablet 12 Tablet 3 03/13/2024 Active Alendronate Sodium 70 MG Oral Tablet (Fosamax)Indicatio ns:High risk for fracture due to osteoporosis by DEXA scan Take 1 Tablet by mouth once a week. with 8 oz. water 30 minutes before first meal of the day. Remain upright for 30 min after taking tablet 5 Tablet 11 01/10/2024 4 Discontinue d(Refill) documented as of this encounter (statuses as of 03/13/2024) Active Problems Problem Noted Date Diagnosed Date [...] as of this encounter (statuses as of 03/13/2024) Resolved Problems Problem Noted Date Diagnosed Date Resolved Date Myasthenia gravis with exacerbation 12/14/2022 12/19/2023 Nonallopathic lesion of abdo men and other sites, not elsewhere classified 11/22/2003 06/30/19 12 documented as of this encounter (statuses as of 03/13/2024) Immunizations Name Administration Dates Next Due COVID-19 [...] encounter Miscellaneous Notes * Telephone Encounter - Keke Johnson MD - 03/13/2024 3:15 PM EDTSigned Prescriptions: Disp Refills Alendronate Sodium 70 MG Oral Tablet (Fosa*12 Tab*3 Sig: Take 1 Tablet by mouth once a week. with 8 oz. water 30 minutes before first meal of the day. Remain upright for 30 min after taking tablet Authorizing Provider: KEKE JOHNSON * Telephone Encounter - Kalli Ramirez LPN - 03/13/2024 2:09 PM EDTPending Prescriptions: Disp Refills Alendronate Sodium 70 MG Oral Tablet (Fosa*12 Tab*3 Sig: Take 1 Tablet by mouth once a week. with 8 oz. water 30 minutes before first meal of the day. Remain upright for 30 min after taking tablet * Telephone Encounter - Kalli Ramirez LPN - 03/13/2024 2:09 PM EDT 90 day supply * Telephone Encounter - Rubia Kenny OSA - 03/12/2024 7:47 AM EDT Did you pend patient's preferred pharmacy and medication before forwarding?yes Pharmacy: [id number] Pending Prescriptions: Disp Refills Alendronate Sodium 70 MG Oral Tablet (Fos*5 Tabl*11 Sig: Take 1 Tablet by mouth once a week. with 8 oz. water 30 minutes before first meal of the day. Remain upright for 30 min after taking tablet Last Visit: 01/16/2024 (in office), Visit date not found (telemedicine) Next Visit: 06/22/2024 If no future appointments scheduled, and last appointment is greater than a year ago, please schedule patient for a follow-up appointment Last date the medication was ordered: 01/10/2024 Is this request for a controlled substance?No Urine Drug Screen:No results found for this or any previous visit. Patient Phone Numbers Labs: Lab Results Component Value Date/Time CREAT 1.2 05/31/2023 09:12 AM CREAT 1.1 05/30/2017 11:10 AM POTASSIUM 3.8 05/31/2023 09:12 AM POTASSIUM 4.0 02/09/2017 07:04 AM TSH 1.20 05/20/2022 11:19 AM TSH 1.19 09/03/2016 11:14 AM LDL 109 03/03/2021 07:05 AM LDL 102 03/21/2018 07:14 AM LDL NOT APPLICABLE 03/21/2018 07:14 AM ALT 32 05/31/2023 09:12 AM ALT 44 02/09/2017 07:04 AM HGBA1C 6.2 (H) 05/31/2023 09:12 AM HGBA1C 5.5 12/05/2013 07:09 AM documented in this encounter Plan of Treatment Upcoming Encounters Date Type Department Care Team (Late st Contact Info) Description 03/19/2024 10:30 AM EDT Hem/Onc Treatment [facility] [place] [facility] [phone] Krista, Chair 4 Hem Onc Scenery [address] [place] [address] 03/26/2024 10:30 AM EST Hem/Onc Treatment Hematology/Oncology Treatment, [place] 200 [facility], [place] [phone] Krista, Chair 8 Hem Onc Scenery 200 [facility] [place] [place] [address] 04/02/2024 9:30 AM EST Hem/Onc Treatment Hematology/Oncology Treatment, [place] 200 [facility], [place] [phone] Krista, Chair 7 Hem Onc Scenery [address] [place] [address] 04/09/2024 9:00 AM EST Telemedicine Neurology [address] [place] [phone] Nathan, Pharmacist Neurology [address] [place] [address] [place] [address] 05/04/2024 9:45 AM EST Office Visit Dermatology [facility] [place] [address] [place] [address] Marshall Henson MD [address] [place] [address] 06/18/2024 11:30 AM EST Office Visit Urology, [facility] [address] [facility] [place] [address] Ramesh Phan MD [address] [place] [address] 06/22/2024 10:40 AM EST Office Visit Family Practice [facility] 200 [facility] [place] [address] Keke Johnson MD 200 [facility] [place], [place] [address] 07/25/2024 11:00 AM EST Office Visit Neurology [address] [place] [address] Maksim Wright MD [address] [facility] [place] [address] Scheduled Procedures Name Priority Associated Diagnoses [...] this encounter Medical Devices Implanted Type Area Actuarial Intern Device Identifier Shelf Expiration Date Model / Serial / Lot Port Powerflow 9.6fr - [id number] Implanted:Qty : 1 on 03/15/2023 at [facility] CR BARD : PERIPHERAL VASCULAR [id number] 10/21/2023 [id number] / / [id number] Power Port 8fr Sngl Lumen Plas - [id number] Implanted:Qty : 1 on 03/15/2023 at [facility] CR BARD : PERIPHERAL VASCULAR [id number] 03/22/2024 [id number] / / [id number] Lens Li61ao 13.00mm 18.00 - [id number] - [id number] Implanted:Qty : 1 on 02/02/2024 by Andre Swartz MD at [facility] Right: Eye [employer] LOMB 08/20/2028 [id number] / [id number] / [id number] Lens Li61ao 13.00mm 17.50 - [id number] - [id number] Implanted:Qty : 1 on 02/16/2024 by Andre Swartz MD at [facility] Left: Eye BAUSCH [employer] LOMB 07/20/2028 [id number] / [id number] / [id number] documented as of this encounter Visit Diagnoses Diagnosis High risk for fracture due to osteoporosis by DEXA scan Osteoporosis, unspecified documented in this encounter Advance Directives Documents on File Type Date Recorded Patient Sonographer Expl anation Power of Material Damage Appraiser 06/20/2018 POWER OF A TTORNEY POA: EDEL- [...] Power of Attor ephraim? No Care Teams Cinder Man Relationship Specialty Start Date End Date Keke Johnson MD [address] [place] [address] PCP - General Family Medicine 12/19/23 documented as of this encounter
--- OUTSIDE RECORDS SUMMARY | 2024-06-23 06:17 | External Medical Summary | Summary of Care ---
Author Name Unknown Organization [facility] Address [address] [place] [address] Phone [phone] Care Team Providers Care Polymer Chemist Name Role Phone Theresa Johnson MD Primary Care Provider [phone] Encounter Details Date Type Department Care Team (Late st Contact Info) Description 03/09/2024 Orders Only Neurology [address] [place] [phone] Maksim Wright MD [address] [place] [address] Allergies Active Allergy Reactions Criticality Noted Date Comments Benzalkonium Chloride 02/21/2015 Merthiolate "the orange kind" Caused a rash Milk (Cow) Diarrhea 02/05/2015 documented as of this encounter (statuses as of 03/09/2024) Medications Medication Sig Dispensed Refills Start Date End Date Status ALEVE 220 MG PO CAPS as needed Active Fluticasone Propionate 50 MCG/ACT Nasal Suspension Administer 1 [place] into nostril in the morning. Active FIBER [...] as of this encounter (statuses as of 03/09/2024) Active Problems Problem Noted Date Diagnosed Date [...] as of this encounter (statuses as of 03/09/2024) Resolved Problems Problem Noted Date Diagnosed Date Resolved Date Myasthenia gravis with exacerbation 12/14/2022 12/19/2023 Nonallopathic lesion of abdo men and other sites, not elsewhere classified 11/22/2003 06/30/19 12 documented as of this encounter (statuses as of 03/09/2024) Immunizations Name Administration Dates Next Due COVID-19 [...] Team (Late st Contact Info) Description 03/12/2024 11:30 AM EDT Hem/Onc Treatment Hematology/Oncology Treatment, [address], [place] [phone] Krista, Chair 7 Hem Onc Scenery 200 [facility] [place], [place] [address] 03/19/2024 10:30 AM EDT Hem/Onc Treatment Hematology/Oncology Treatment, [address], [place] [phone] Krista, Chair 4 Hem Onc Scenery 200 [facility] [place], [place] [address] 03/26/2024 10:30 AM EST Hem/Onc Treatment Hematology/Oncology Treatment, [place] 200 [facility], [place] [phone] Krista, Chair 8 Hem Onc Scenery [address] [place], [place] [address] 04/02/2024 9:30 AM EST Hem/Onc Treatment Hematology/Oncology Treatment, [place] 200 [place] [phone] Krista, Chair 7 Hem Onc Scenery [address] [place], [place] [address] 04/09/2024 9:00 AM EST Telemedicine Neurology [address] [place] [address] Nathan, Pharmacist Neurology [address] [place] [address] 05/04/2024 9:45 AM EST Office Visit Dermatology [facility] [address] [place] [address] Marshall Henson MD [address] [place] [address] 06/18/2024 11:30 AM EST Office Visit Urology, [facility] [address] [facility] [place] [address] Ramesh Phan MD [address] [place] [address] 06/22/2024 10:40 AM EST Office Visit Family Practice [facility] [address] [place] [address] Theresa Johnson MD [address] [place] [address] 07/25/2024 11:00 AM EST Office Visit Neurology [address] [place] [address] Maksim Wright MD [address] [place], [place] [phone] Scheduled Procedures Name Priority Associated Diagnoses Date/Ti [...] Completed 03/21/2019, 08/0 10/2018, 02/05/2015 Pneumococcal Vaccine: 65+ Years Completed [...] this encounter Medical Devices Implanted Type Area Engineer Operations And Maintenance Device Identifier Shelf Expiration Date Model / Serial / Lot Port Powerflow 9.6fr - [id number] Implanted:Qty : 1 on 03/15/2023 at [facility] CR BARD : PERIPHERAL VASCULAR [id number] 10/21/2023 [id number] / / [id number] Power Port 8fr Sngl Lumen Plas - [id number] Implanted:Qty : 1 on 03/15/2023 at [facility] CR BARD : PERIPHERAL VASCULAR [id number] 03/22/2024 [id number] / / [id number] Lens Li61ao 13.00mm 18.00 - [id number] - [id number] Implanted:Qty : 1 on 02/02/2024 by Andre Swartz MD at [facility] Right: Eye [employer]CH [employer] LOMB 08/20/2028 [id number] / [id number] / [id number] Lens Li61ao 13.00mm 17.50 - [id number] - [id number] Implanted:Qty : 1 on 02/16/2024 by Andre Swartz MD at [facility] Left: Eye BAUSCH & LOMB 07/20/2028 [id number] / [id number] / [id number] documented as of this encounter Advance Directives Documents on File Type Date Recorded Patient Pecan Mallow Dipper Expl anation Power of Hemp Fiber Taker Off 06/20/2018 POWER OF A TTORNEY POA: EDEL- [...] Power of Attor ephraim? No Care Teams Polymer Chemist Relationship Specialty Start Date End Date Theresa Johnson MD [address] [place] [address] PCP - General Family Medicine 12/19/23 documented as of this encounter
--- OUTSIDE RECORDS SUMMARY | 2024-06-23 06:17 | External Medical Summary | Summary of Care ---
Author Name Unknown Organization [facility] Address [address] [facility] [place] [address] Phone [phone] Care Team Providers Care Sales Product Specialist Name Role Phone Theresa Johnson MD Primary Care Provider [phone] Reason for Visit * Reason Comments Dosage Adjustment Via Phone (anticoag Cl inic) Encounter Details Date Type Department Care Team (Late st Contact Info) Description 02/22/2024 9:00 AM EDT Telemedicine Neurology [address] [place] [address] Nathan, Pharmacist Neurology [address] [place] [address] Myasthenia gravis (HCC)* Allergies Active Allergy Reactions Criticality Noted Date Comments Benzalkonium Chloride 02/21/2015 Merthiolate "the orange kind" Caused a rash Milk (Cow) Diarrhea 02/05/2015 documented as of this encounter (statuses as of 02/22/2024) Medications Medication Sig Dispensed Refills Start Date End Date Status ALEVE 220 MG PO CAPS as needed Active Fluticasone Propionate 50 MCG/ACT Nasal Suspension Administer 1 [place] into nostril in the morning. Active FIBER [...] as of this encounter (statuses as of 02/22/2024) Active Problems Problem Noted Date Diagnosed Date [...] as of this encounter (statuses as of 02/22/2024) Resolved Problems Problem Noted Date Diagnosed Date Resolved Date Myasthenia gravis with exacerbation 12/14/2022 12/19/2023 Nonallopathic lesion of abdo men and other sites, not elsewhere classified 11/22/2003 06/30/19 12 documented as of this encounter (statuses as of 02/22/2024) Immunizations Name Administration Dates Next Due COVID-19 [...] this encounter Progress Notes * Anette Tanner, [facility] - 02/22/2024 8:29 AM EDT Images from the original note were not included. Patient Symptom Assessment [facility] Neurology Patient location: HOME. I was in a hospital or clinic location. After connecting through [employer],patient was verified with two unique identifiers. Patient (or authorized legal player services representative) was then informed that this was [...] Disposition: Routine follow-up Total call duration was 6 minutes. Vyvgart Dosing - Cycle 1 -09/16/23, 09/23/23, 09/30/23 , 10/07/23 Cycle 2- 11/14/23, 11/21/23, 11/28/23, 12/05/23 Cycle 3- 01/12/24, 01/19/24, 01/26/24, 02/01/24 Baseline MG-ADL completed on 09/02/23: 6 MG-ADL on 02/22/24: Talkin Chewin Swallowin Breathin - not getting as winded. Improvement in SOB while going up steps compared to before. Impairment of ability to brush teeth of comb hair: 0 Impairment of ability to arise from chair: 1 - however, not using arms as much Double vision: 3 Eyelid droop: 2 - states has always been daily but not full closure - stable ptosis Total Score: 7 Patient is still doing well. He notes that he actually feels better than last week. Going to the gym daily. He states that in the last two weeks, he hasn't been thinking about having a disease, whichis new for him! He just goes out and does things without having to worry about MG symptoms. Sometimes he does need about a 30 minute rest, but overall, he is very pleased with his symptom improvement. He had cataract procedure on second eye and is seeing better with clear vision. Notes that he still has double vision but is getting new glasses next week with built in prisms. Patient's MG-ADL remains the same, however, both he and I agree that the score doesn't encompass all of his previous symptoms and he feels better than his score reflects. His breathing and ability toarise from a chair have actually improved as noted above but still occurring. Next cycle scheduled to start on day 53 - scheduled for 03/05/24, 03/12/24, 03/19/24, 03/26/24. Willcontinue weekly MG-ADL calls to see if duration between re-dosing needs altering. Patient agreeable. Patient was advised to contact the clinic in the meantime with any questions or concerns. Follow up: 1 week for MG-ADL call Anette Tanner RPh Clinical Pharmacist, Neurology Medication Therapy Disease Management 02/22/2024 8:33 AM documented in this encounter Plan of Treatment Upcoming Encounters Date Type Department Care Team (Late st Contact Info) Description 02/29/2024 9:00 AM EDT Telemedicine Neurology Nathan [address] [place] [phone] Nathan Pharmacist Neurology [address] [place] [address] [place] [address] 03/05/2024 10:30 AM EDT Hem/Onc Treatment Hematology/Oncology Treatment, [place] [address] [place] [address] 03/12/2024 11:30 AM EDT Hem/Onc Treatment Hematology/Oncology Treatment, [place] 200 [place] [phone] Park, Chair 7 Hem Onc Scenery [address] [place], [place] [address] 03/19/2024 10:30 AM EDT Hem/Onc Treatment Hematology/Oncology Treatment, [place] 200 [place] [address] Krista, Chair 4 Hem Onc Scenery [address] [place], [place] [address] 03/26/2024 10:30 AM EST Hem/Onc Treatment Hematology/Oncology Treatment, [place] [address] [place] [address] Krista, Chair 8 Hem Onc Scenery [address] [place], [place] [address] 05/04/2024 9:45 AM EST Office Visit Dermatology [facility] [address] [place] [address] Marshall Henson MD [address] [place], [place] [address] 06/18/2024 11:30 AM EST Office Visit Urology, [facility] [address] [facility] [place] [address] Ramesh Phan MD [address] [place] [address] [address] 06/22/2024 10:40 AM EST Office Visit Family Practice [facility] [address] [place], [place] [address] Theresa Johnson MD [address] [place], [place] [address] 07/25/2024 11:00 AM EST Office Visit Neurology Nathan Lawson [address] [place] [address] Maksim Wright MD [address] [facility] [place] [id number] Scheduled Procedures Name Priority Associated Diagnoses Date/Ti [...] this encounter Medical Devices Implanted Type Area Research Instrumentation Technician Device Identifier Shelf Expiration Date Model / Serial / Lot Port Powerflow 9.6fr - [id number] Implanted:Qty : 1 on 03/15/2023 at [facility] : PERIPHERAL VASCULAR [id number] 10/21/2023 [id number] / / [id number] Power Port 8fr Sngl Lumen Plas - [id number] Implanted:Qty : 1 on 03/15/2023 at [facility] CR BARD : PERIPHERAL VASCULAR [id number] 03/22/2024 [id number] / / [id number] Lens Li61ao 13.00mm 18.00 - [id number] - [id number] Implanted:Qty : 1 on 02/02/2024 by Andre Swartz MD at OR [facility] Right: Eye [employer] LOMB 08/20/2028 [id number] / [id number] / [id number] Lens Li61ao 13.00mm 17.50 - [id number] - [id number] Implanted:Qty : 1 on 02/16/2024 by Andre Swartz MD at OR [facility] Left: Eye BAUSCH [employer] LOMB 07/20/2028 [id number] / [id number] / [id number] documented as of this encounter Visit Diagnoses Diagnosis Myasthenia gravis (HCC)- Primary Myasthenia gravis without exacerbation documented in this encounter Advance Directives Documents on File Type Date Recorded 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 No Care Teams Sales Product Specialist Relationship Specialty Start Date End Date Theresa Johnson MD [address] [place] [address] PCP - General Family Medicine 12/19/23 documented as of this encounter
--- OUTSIDE RECORDS SUMMARY | 2024-06-23 06:17 | External Medical Summary | Summary of Care ---
Author Name Unknown Organization [facility] Address [address] [place] [facility] [place] [address] Phone [phone] Care Team Providers Care Siphoner Name Role Phone Theresa Johnson MD Primary Care Provider [phone] Reason for Visit * Reason Comments Dosage Adjustment Via Phone (anticoag Cl inic) Encounter Details Date Type Department Care Team (Late st Contact Info) Description 02/14/2024 10:00 AM EDT Telemedicine Neurology Nathan Lawson [address] [place] [phone] Nathan, Pharmacist Neurology [address] [place] [address] Myasthenia gravis (HCC)* Allergies Active Allergy Reactions Criticality Noted Date Comments Benzalkonium Chloride 02/21/2015 Merthiolate "the orange kind" Caused a rash Milk (Cow) Diarrhea 02/05/2015 documented as of this encounter (statuses as of 02/14/2024) Medications Medication Sig Dispensed Refills Start Date End Date Status ALEVE 220 MG PO CAPS as needed Active Fluticasone Propionate 50 MCG/ACT Nasal Suspension Administer 1 [place] into nostril in the morning. Active FIBER [...] as of this encounter (statuses as of 02/14/2024) Active Problems Problem Noted Date Diagnosed Date [...] as of this encounter (statuses as of 02/14/2024) Resolved Problems Problem Noted Date Diagnosed Date Resolved Date Myasthenia gravis with exacerbation 12/14/2022 12/19/2023 Nonallopathic lesion of abdo men and other sites, not elsewhere classified 11/22/2003 06/30/19 12 documented as of this encounter (statuses as of 02/14/2024) Immunizations Name Administration Dates Next Due COVID-19 [...] encounter Progress Notes * Anette Tanner, [facility] - 02/14/2024 9:04 AM EDT Images from the original note were not included. Patient Symptom Assessment [facility] Neurology Patient location: HOME. I was in a hospital or clinic location. After connecting through [employer],patient was verified with two unique identifiers. Patient (or authorized legal ambulatory services representative) was then informed that this [...] MG-ADL completed on 09/02/23: 6 MG-ADL on 02/14/24: Talkin Chewin Swallowin Breathin - some improvement Impairment of ability to brush teeth of comb hair: 0 Impairment of ability to arise from chair: 1 Double vision: 3 Eyelid droop: 2 - states has always been daily but not full closure - stable ptosis Total Score: 7 Patient is feeling really well. He has gone to the gym five days in a row. Working out for 30 minutes on the treadmill or arc water trainer. He usually needs to rest in the afternoon. Patient with questions regarding flu and Covid vaccines, especially before going on his cruise on 04/14. Advised that he can receive inactivated vaccines while on Vyvgart, but timing is questionable due to lack of data. Recommended that patient receives both vaccines prior to initiation of next cycle if possible. Next cycle scheduled to start on day 53 - scheduled for 03/05/24, 03/12/24, 03/19/24, 03/26/24. Willcontinue weekly MG-ADL calls to see if duration between re-dosing needs altering. Patient agreeable. Patient was advised to contact the clinic in the meantime with any questions or concerns. Follow up: 1 week for MG-ADL call Anette Tanner RPh Clinical Pharmacist, Neurology Medication Therapy Disease Management 02/14/2024 9:04 AM documented in this encounter Plan of Treatment Upcoming Encounters Date Type Department Care Team (Late st Contact Info) Description 02/16/2024 9:21 AM EDT Hospital Encounter [facility], Operating Room [facility] [address] [facility] [place] [phone] Andre Swartz MD [address] [address] 02/16/2024 9:21 AM EDT - 02/16/2024 9:56 AM EDT Surgery OR [facility], Operating Room [facility] [address] [place] [phone] Andre Swartz MD [address] [address] LEFT EXTRACAPSULAR CATARACT REMOVAL WITH INTRAOCULAR LENS 02/22/2024 9:00 AM EDT Telemedicine Neurology [address], [address] [place], [place] [address] Nathan, Pharmacist Neurology [address] [facility] [place] [address] 03/05/2024 10:30 AM EDT Hem/Onc Treatment Hematology/Oncolo gy Treatment, [place] [address] [place] [address] 03/12/2024 11:30 AM EDT Hem/Onc Treatment Hematology/Oncolo gy Treatment, [place] [address] [place] [address] Krista, Chair 7 Hem Onc Scenery 200 [facility] [place] [address] 03/19/2024 10:30 AM EDT Hem/Onc Treatment Hematology/Oncolo gy Treatment, [address], [place] [phone] Krista, Chair 4 Hem Onc Scenery 200 [facility] [place], [place] [address] 03/26/2024 10:30 AM EST Hem/Onc Treatment Hematology/Oncolo gy Treatment, [place] [address] [facility], [place] [address] Krista, Chair 8 Hem Onc Scenery 200 [facility] [place], [place] [address] 05/04/2024 9:45 AM EST Office Visit Dermatology [facility] [address] [place], [place] [address] Marshall Henson MD [address] [place], [place] [address] 06/18/2024 11:30 AM EST Office Visit Urology, [facility] 132 [facility] [address] Ramesh Phan MD [address] [place] [address] [id number] 06/22/2024 10:40 AM EST Office Visit Family Practice Iam Velasco [place] 200 [place] [address] Theresa Johnson MD [address] [place] [address] 07/25/2024 11:00 AM EST Office Visit Neurology Nathan [address] [place] [address] Maksim Wright MD [address] [place] [place] [place] [address] Scheduled Procedures Name Priority Associated Diagnoses Date/Ti me EXTRACAPSULAR CATARACT REMOVAL WITH INTRAOCULAR LENS 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 eye 02/16/2024 9:21 AM EDT COLONOSCOPY FLEXIBLE PROXIMAL DIAGNOSTIC Recall [...] this encounter Medical Devices Implanted Type Area Tie Inspector Device Identifier Shelf Expiration Date Model / Serial / Lot Port Powerflow 9.6fr - [id number] Implanted:Qty : 1 on 03/15/2023 at [facility] CR BARD : PERIPHERAL VASCULAR [id number] 10/21/2023 [id number] / / [id number] Power Port 8fr Sngl Lumen Plas - [id number] Implanted:Qty : 1 on 03/15/2023 at [facility] CR BARD : PERIPHERAL VASCULAR [id number] 03/22/2024 [id number] / / [id number] Lens Li61ao 13.00mm 18.00 - [id number] - [id number] Implanted:Qty : 1 on 02/02/2024 by Andre Swartz MD at [facility] Right: Eye [employer] LOMB 08/20/2028 [id number] / [id number] / [id number] documented as of this encounter Visit Diagnoses Diagnosis Myasthenia gravis (HCC)- Primary Myasthenia gravis without exacerbation 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 eye Other and combined forms of senile cataract documented in this encounter Advance Directives Documents on File Type Date Recorded 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 Question Answer Comments Discussion of Advance Directives occurred with: Patient Does the patient have a Living Will? No Does the patient have Health Care Power of Attor ephraim? No Care Teams Siphoner Relationship Specialty Start Date End Date Theresa Johnson MD [address] [place] [address] PCP - General Family Medicine 12/19/23 documented as of this encounter
--- OUTSIDE RECORDS SUMMARY | 2024-06-23 06:17 | External Medical Summary | Summary of Care ---
Author Name Unknown Organization [facility] Address [address] [place] [address] Phone [phone] Care Team Providers Care Emergency Room Nurse Name Role Phone Theresa Johnson MD Primary Care Provider [phone] Reason for Visit * Reason Onset Date Comments Appointment 03/05/2024 Syl-Gely witt Encounter Details Date Type Department Care Team (Late st Contact Info) Description 03/05/2024 Telephone Hematology/Oncology Treatment, [place] [address] [place] [address] Maksim Wright MD [address] [place] [address] Appointment (Treatment-Adriana) Allergies Active Allergy Reactions Criticality Noted Date Comments Benzalkonium Chloride 02/21/2015 Merthiolate "the orange kind" Caused a rash Milk (Cow) Diarrhea 02/05/2015 documented as of this encounter (statuses as of 03/05/2024) Medications Medication Sig Dispensed Refills Start Date End Date Status ALEVE 220 MG PO CAPS as needed Active Fluticasone Propionate 50 MCG/ACT Nasal Suspension Administer 1 [place] into nostril in the morning. Active FIBER [...] as of this encounter (statuses as of 03/05/2024) Active Problems Problem Noted Date Diagnosed Date [...] as of this encounter (statuses as of 03/05/2024) Resolved Problems Problem Noted Date Diagnosed Date Resolved Date Myasthenia gravis with exacerbation 12/14/2022 12/19/2023 Nonallopathic lesion of abdo men and other sites, not elsewhere classified 11/22/2003 06/30/19 12 documented as of this encounter (statuses as of 03/05/2024) Immunizations Name Administration Dates Next Due COVID-19 [...] Telephone Encounter - Gladis Louise OSA - 03/05/2024 9:02 AM EDT Pt is scheduled and apts updated * Telephone Encounter - Tsiha Hunt OSA - 03/05/2024 8:40 AM EDT Pt called requesting to cancel his treatment appt for today 03.05.24 due to testing positive for covid. Please reach out to pt to r/s. Thank You! documented in this encounter Plan of Treatment Upcoming Encounters Date Type Department Care Team (Late st Contact Info) Description 03/12/2024 11:30 AM EDT Hem/Onc Treatment [facility] [place] [facility] [phone] Krista, Chair 7 Hem Onc Scenery [facility] [place] [address] [address] 03/19/2024 10:30 AM EDT Hem/Onc Treatment Hematology/Oncology Treatment, [place] 200 [facility] [place] [phone] Krista, Chair 4 Hem Onc Scenery [address] [place] [address] 03/26/2024 10:30 AM EST Hem/Onc Treatment Hematology/Oncology Treatment, [place] 200 [place] [address] Krista, Chair 8 Hem Onc Scenery [address] [place] [address] 04/02/2024 9:00 AM EST Telemedicine Neurology Nathan [address] [place] [address] Nathan, Pharmacist Neurology 100 [facility] [place] [address] 04/02/2024 9:30 AM EST Hem/Onc Treatment Hematology/Oncology Treatment, [place] 200 [facility], [place] [phone] Krista, Chair 7 Hem Onc Scenery 200 [facility] [place] [address] 05/04/2024 9:45 AM EST Office Visit Dermatology [facility] [address] [place] [address] Marshall Henson MD [address] [place] [address] 06/18/2024 11:30 AM EST Office Visit Urology, [facility] 132 [facility] [place] [address] Ramesh Phan MD [address] [place] [address] 06/22/2024 10:40 AM EST Office Visit Family Practice [facility] [address] [place] [address] Theresa Johnson MD [address] [place] [address] 07/25/2024 11:00 AM EST Office Visit Neurology Nathan Lawson [address] [place] [address] Maksim Wright MD [address] [facility] [place] [id number] Scheduled Procedures Name Priority Associated Diagnoses Date/Ti [...] this encounter Medical Devices Implanted Type Area Rod Cup Filler Device Identifier Shelf Expiration Date Model / Serial / Lot Port Powerflow 9.6fr - [id number] Implanted:Qty : 1 on 03/15/2023 at [facility] CR BARD : PERIPHERAL VASCULAR [id number] 10/21/2023 [id number] / / [id number] Power Port 8fr Sngl Lumen Plas - [id number] Implanted:Qty : 1 on 03/15/2023 at [facility] CR BARD : PERIPHERAL VASCULAR [id number] 03/22/2024 [id number] / / [id number] Lens Li61ao 13.00mm 18.00 - [id number] - [id number] Implanted:Qty : 1 on 02/02/2024 by Andre Swartz MD at OR [facility] [address] Right: Eye [employer]CH [employer] LOMB 08/20/2028 [id number] / [id number] / [id number] Lens Li61ao 13.00mm 17.50 - [id number] - [id number] Implanted:Qty : 1 on 02/16/2024 by Andre Swartz MD at OR [facility] [address] Left: Eye BAUSCH & LOMB 07/20/2028 [id number] / [id number] / [id number] documented as of this encounter Advance Directives Documents on File Type Date Recorded Patient [employer] Reading Teacher Expl anation Power of Wire Winding Machine Tender 06/20/2018 POWER OF A TTORNEY POA: EDEL- [...] Power of Attor ephraim? No Care Teams Emergency Room Nurse Relationship Specialty Start Date End Date Theresa Johnson MD [address] [place] [address] PCP - General Family Medicine 12/19/23 documented as of this encounter
--- OUTSIDE RECORDS SUMMARY | 2024-06-23 06:17 | External Medical Summary | Summary of Care ---
Author Name Unknown Organization [facility] Address [address] [place] [address] Phone [phone] Care Team Providers Care Cafe Associate Name Role Phone Theresa Johnson MD Primary Care Provider [phone] Reason for Visit * Reason Comments Infusion Vygart 06/26 * Episode Based Medications (Routine) - Authorized Specialty Diagnoses / Procedures Referred By Contac t Referred To Contact Diagnoses Myasthenia gravis (HCC) Procedures ME INJECTION, EFGARTIGIMOD EVANGELINA-FCAB, 2MG Maksim Wright MD [address] [place] [address] Anc Hem/Onc [address] [address] Referral ID Status Reason Start Date Expiration Date V isits Requested Visits Authorized [id number] Authorized 11/04/2023 11/03/2024 99 99 Encounter Details Date Type Department Care Team (Latest Contact Info) Description 03/19/2024 10:30 AM EDT Hem/Onc Treatment Hematology/Oncology Treatment, [address] [address] Krista, Chair 4 Hem On[address] [address] Myasthenia gravis (HCC)* Allergies Active Allergy Reactions Criticality Noted Date Comments Benzalkonium Chloride 02/21/2015 Merthiolate "the orange kind" Caused a rash Milk (Cow) Diarrhea 02/05/2015 documented as of this encounter (statuses as of 03/19/2024) Medications Medication Sig Dispensed Refills Start Date End Date Status ALEVE 220 MG PO CAPS as needed Active Fluticasone Propionate 50 MCG/ACT Nasal Suspension Administer 1 [place] into nostril in the morning. Active FIBER [...] the morning. 90 Capsule 3 03/16/2023 Active predniSONE 5 MG Oral Tablet (Deltasone) [...] AT BEDTIME 90 Tablet 1 03/16/2024 Active documented as of this encounter (statuses [...] Sign Reading Time Taken Comments Blood Pressure 139/68 03/19/2024 11:12 AM EDT Pulse 85 03/19/2024 11:12 AM EDT Temperature 36.1 C (97 F) 03/19/2024 11:12 AM EDT Respiratory Rate 18 03/19/2024 11:12 AM EDT Oxygen Saturation 95% 03/19/2024 11:12 AM EDT Inhaled Oxygen Concentration - - Weight - - Height - - Body Mass Index - - documented in this encounter Nursing Notes * Azucena Sarmiento LPN - 03/19/2024 11:12 AM EDT 1040: Pt arrived for Vygart 2/4 infusion. PIV in LFA. Pt tolerated well. VSS. Patient instructed onuse of heat and massage functions where applicable. Patient shown how to operate the heat function of the chair and to alert nursing staff if the chair feels too warm. Patient instructed on the risk of potential rodriguez while using the heat function. Pt resting quietly at this time. 1215: Pt tolerated Vygart infusion well. PIV removed intact. Pt to return in one week. Discharged in stable condition. documented in this encounter Plan of Treatment Upcoming Encounters Date Type Department Care Team (Late st Contact Info) Description 03/26/2024 10:30 AM EST Hem/Onc Treatment [facility] [place] [facility] [phone] Krista, Chair 8 Hem Onc [address] [place] [address] 04/02/2024 9:30 AM EST Hem/Onc Treatment [facility]cology [facility], [place] [facility] [phone] Krista, Chair 7 Hem Onc [address] [place] [address] 04/09/2024 9:00 AM EST Telemedicine Neurology [address] [place] [phone] Nathan, Pharmacist Neurology [address] [place] [address] [place] [id number] 05/04/2024 9:45 AM EST Office Visit Dermatology [facility] 200 [facility] [place] [address] Marshall Henson MD 200 [facility] [place] [address] 06/18/2024 11:30 AM EST Office Visit Urology, [facility] 132 [facility] [place] [address] Ramesh Phan MD [address] [place] [address] 06/22/2024 10:40 AM EST Office Visit Family Practice Iam Velasco [place] 200 [facility] [place] [address] Theresa Johnson MD 200 [facility] [place] [address] 07/25/2024 11:00 AM EST Office Visit Neurology Nathan [address] [place] [address] Maksim Wright MD [address] [facility] [address] Scheduled Procedures Name Priority Associated Diagnoses [...] this encounter Medical Devices Implanted Type Area Fire Protection Designer Device Identifier Shelf Expiration Date Model / Serial / Lot Port Powerflow 9.6fr - [id number] Implanted:Qty : 1 on 03/15/2023 at [facility] CR [facility]ARD : PERIPHERAL VASCULAR [id number] 10/21/2023 [id number] / / [id number] Power Port 8fr Sngl Lumen Plas - [id number] Implanted:Qty : 1 on 03/15/2023 at [facility] CR BARD : PERIPHERAL VASCULAR [id number] 03/22/2024 [id number] / / [id number] Lens Li61ao 13.00mm 18.00 - [id number] - [id number] Implanted:Qty : 1 on 02/02/2024 by Andre Swartz MD at [facility] Right: Eye BAUSCH & LOMB 08/20/2028 [id number] / [id number] / [id number] Lens Li61ao 13.00mm 17.50 - [id number] - [id number] Implanted:Qty : 1 on 02/16/2024 by Andre Swartz MD at [facility] Left: Eye BAUSCH & LOMB 07/20/2028 [id number] / [id number] / [id number] documented as of this encounter Visit Diagnoses Diagnosis Myasthenia gravis (HCC)- Primary Myasthenia gravis without exacerbation documented in this encounter Administered Medications Active Administered Medications - up to 3 most recent administrations Medication Order MAR Action Action Date Dose Rate Site diphenhydrAMINE (Benadryl) inj 50 mg 50 mg, IV Push, ONCE PRN Other, Hypersensitivity Reaction, Starting on Tue03/19/24 at 1022, Until Tue03/20/24 at 1021, For 24 hours EPINEPHrine 1 MG/ML inj 0.3 mg 0.3 mg, Intramuscular, ONCE PRN Other, Hypersensitivity Reaction or Anaphylaxis, Starting on Tue03/19/24 at 1022, Until Tue03/20/24 at 1021, For 24 hours hEParin 100 UNIT/ML Lock Flush inj 500 Units 500 Units (5 mL), IV Lock, PRN Other, IV Flush, Starting on Tue03/19/24 at 1022, Until Tue03/20/24 at 1021, For 24 hours, Do not flush if lock, PICC, or central line not in place; IV infusing or unable to flush. Hydrocortisone Sod Suc (PF) (Solu-Cortef) inj 100 mg 100 mg, IV Push, ONCE PRN Other, Hypersensitivity Reaction, Starting on Tue03/19/24 at 1022, Until Tue03/20/24 at 1021, For 24 hours NSS infusion Intravenous, at 50 mL/hr, PRN, Starting on Tue03/19/24 at 1130, Until Discontinued, Maintenance line Start Infusion 03/19/2024 11:06 AM EDT 50 mL/hr oxygen GAS Inhalation, OXYGEN, First dose on Tue03/19/24 at 1100, Until Discontinued, Device/Managed by: Low Flow Device, [...] Push, PRN Other, IV Flush, Starting on Tue03/19/24 at 1022, Until Tue03/20/24 at 1021, For 24 hours, Do not flush if lock, PICC, or central line not in place; IV infusing or unable to flush. Inactive Administered Medications - up to 3 most recent administrations Medication Order MAR Action Action Date Dose Rate Site Efgartigimod evangelina-fcab (Vyvgart) 800 mg in NSS 125 mL infusion 800 mg, IV Piggyback, ONCE, 1 dose, On Tue03/19/24 at 1130, In NSS Note: VOLUME TO BE INFUSED 125 ML Infuse over 1 hour via a 0.2 micron in-line filter; do not administer as IV push or bolus. Following administration, flush entire line with NS. 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 No Care Teams Cafe Associate Relationship Specialty Start Date End Date Theresa Johnson MD 200 [facility] [place] [address] PCP - General Family Medicine 12/19/23 documented as of this encounter
--- OUTSIDE RECORDS SUMMARY | 2024-06-23 06:17 | External Medical Summary | Summary of Care ---
Author Name Unknown Organization [facility] Address [address] [place] [facility] [place] [address] Phone [phone] Care Team Providers Care Clinical Program Consultant Name Role Phone Theresa Johnson MD Primary Care Provider [phone] Reason for Visit * Reason Comments Dosage Adjustment Via Phone (anticoag Cl inic) Encounter Details Date Type Department Care Team (Late st Contact Info) Description 02/29/2024 9:00 AM EDT Telemedicine Neurology [address] [place] [phone] Nathan, Pharmacist Neurology [address] [place] [address] Myasthenia gravis (HCC)* Allergies Active Allergy Reactions Criticality Noted Date Comments Benzalkonium Chloride 02/21/2015 Merthiolate "the orange kind" Caused a rash Milk (Cow) Diarrhea 02/05/2015 documented as of this encounter (statuses as of 02/29/2024) Medications Medication Sig Dispensed Refills Start Date End Date Status ALEVE 220 MG PO CAPS as needed Active Fluticasone Propionate 50 MCG/ACT Nasal Suspension Administer 1 [place] into nostril in the morning. Active FIBER [...] as of this encounter (statuses as of 02/29/2024) Active Problems Problem Noted Date Diagnosed Date [...] as of this encounter (statuses as of 02/29/2024) Resolved Problems Problem Noted Date Diagnosed Date Resolved Date Myasthenia gravis with exacerbation 12/14/2022 12/19/2023 Nonallopathic lesion of abdo men and other sites, not elsewhere classified 11/22/2003 06/30/19 12 documented as of this encounter (statuses as of 02/29/2024) Immunizations Name Administration Dates Next Due COVID-19 [...] Progress Notes * Anette Tanner, [facility] - 02/29/2024 8:35 AM EDT Images from the original note were not included. Patient Symptom Assessment [facility] Neurology Patient location: HOME. I was in a hospital or clinic location. After connecting through [employer],patient was verified with two unique identifiers. Patient (or authorized legal ocean import representative) was then informed that this was [...] MG-ADL completed on 09/02/23: 6 MG-ADL on 02/29/24: Talkin Chewin Swallowin Breathin Impairment of ability to brush teeth of comb hair: 0 Impairment of ability to arise from chair: 1 Double vision: 3* - see note below Eyelid droop: 2 - states has always been daily but not full closure - stable ptosis Total Score: 7 Patient is still doing well and going to the gym daily and performing aerobic and leg exercises. Feels his walking is more stable and that he has no weakness. Interestingly, he had an eye doctor appointment for his new glasses and tried on prisms and found that his double vision in the past has actually been due to bad astigmatism. He should have his new glasses that will correct the astigmatism w ithin 2 weeks or so. Next cycle scheduled to start on day 53 - scheduled for 03/05/24, 03/12/24, 03/19/24, 03/26/24. Willfollow up after completion of cycle for next MG-ADL call on 04/02/24. Of note, patient is going on a cruise on 04/14/24. Patient was advised to contact the clinic in the meantime with any questions or concerns. Follow up: 1 week after completion of next cycle for MG-ADL call Anette Tanner RPh Clinical Pharmacist, Neurology Medication Therapy Disease Management 02/29/2024 8:36 AM documented in this encounter Plan of Treatment Upcoming Encounters Date Type Department Care Team (Late st Contact Info) Description 03/05/2024 10:30 AM EDT Hem/Onc Treatment [address]ematology[address] [phone] 03/12/2024 11:30 AM EDT Hem/Onc Treatment Hematology/Oncology Treatment, [address], [place] [address] Krista, Chair 7 Hem Onc [address] [place] [address] 03/19/2024 10:30 AM EDT Hem/Onc Treatment Hematology/[address], [address] [phone] Krista, Chair 4 Hem Onc [facility] [address] [place] [address] [place] [address] 03/26/2024 10:30 AM EST Hem[facility] [address] [place] [address] Park, Chair 8 Hem Onc [facility] [address] [facility] [place] [address] 04/02/2024 9:00 AM EST Telemedicine Neurology Nathan [address] [place] [phone] Nathan, Pharmacist Neurology [address] [place], [place] [address] 05/04/2024 9:45 AM EST Office Visit Dermatology [facility] 200 [facility] [place] [address] Marshall Henson MD 200 [facility] [place] [address] 06/18/2024 11:30 AM EST Office Visit Urology, [facility] [address] [place] [address] Ramesh Phan MD [address] [place] [address] 06/22/2024 10:40 AM EST Office Visit Family Practice [facility] [address] [place] [address] Theresa Johnson MD 200 [facility] [place] [address] 07/25/2024 11:00 AM EST Office Visit Neurology Nathan [address] [place] [address] Maksim Wright MD [address] [place] [address] Scheduled Procedures Name Priority Associated [...] this encounter Medical Devices Implanted Type Area Battery Tester Field Device Identifier Shelf Expiration Date Model / Serial / Lot Port Powerflow 9.6fr - [id number] Implanted:Qty : 1 on 03/15/2023 at [facility] CR BARD : PERIPHERAL VASCULAR [id number] 10/21/2023 [id number] / / [id number] Power Port 8fr Sngl Lumen Plas - [id number] Implanted:Qty : 1 on 03/15/2023 at [facility] CR BARD : PERIPHERAL VASCULAR [id number] 03/22/2024 [id number] / / [id number] Lens Li61ao 13.00mm 18.00 - [id number] - [id number] Implanted:Qty : 1 on 02/02/2024 by Andre Swartz MD at 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 No Care Teams Clinical Program Consultant Relationship Specialty Start Date End Date Theresa Johnson MD 200 [facility] [place] [address] PCP - General Family Medicine 12/19/23 documented as of this encounter
--- OUTSIDE RECORDS SUMMARY | 2024-06-23 06:17 | External Medical Summary | Summary of Care ---
Author Name Unknown Organization [facility] Address [address] [facility] [address] Phone [phone] Care Team Providers Care Pipe Line Walker Name Role Phone Theresa Johnson MD Primary Care Provider [phone] Reason for Visit * Reason Comments eRx-Medication Refill Encounter Details Date Type Department Care Team (Late st Contact Info) Description 03/16/2024 Refill Neurology [facility] [address] [place] [address] Demario Belcher, DO [address] [place] [address] Adjustment insomnia Allergies Active Allergy Reactions Criticality Noted Date Comments Benzalkonium Chloride 02/21/2015 Merthiolate "the orange kind" Caused a rash Milk (Cow) Diarrhea 02/05/2015 documented as of this encounter (statuses as of 03/16/2024) Medications Medication Sig Dispensed Refills Start Date End Date Status ALEVE 220 MG PO CAPS as needed Active Fluticasone Propionate 50 MCG/ACT Nasal Suspension Administer 1 [place] into nostril in the morning. Active FIBER ADULT GUMMIES 2 g CHEW Take 2 Each by mouth daily. Active SUMAtriptan Succinate 100 MG Oral TabletIndications :Migraine without status migrainosus, not intractable, unspecified migraine type TAKE 1 TABLET AT ONSET OF MIGRAINE. MAY REPEAT IN 2 HOURS BUT NOT MORE. 10 Tab 3 02/05/2021 Active Additional Information Patient not taking.Reported on 01/30/2024 Triamcinolone Acetonide 0.5 % External CreamIndications: Dermatitis APPLY TO AFFECTED AREAS TWICE DAILY. 60 g 1 08/21/2021 Active Additional Information Patient not taking.Reported on 01/30/2024 Calcium-Vitamin D-Minerals 600-400 MG-UNIT Oral Tablet ChewableIndicatio ns:Myasthenia gravis (HCC) Take 1 tablet in the morning daily 30 Tablet 5 06/08/2022 Active Tamsulosin HCl 0.4 MG Oral Capsule (Flomax)Indicatio ns:BPH with obstruction/lower urinary tract symptoms Take 1 Capsule by mouth in the morning. 90 Capsule 3 03/16/2023 Active predniSONE 5 MG Oral Tablet (Deltasone) Take 10 mg alternating with 5 mg every other day 45 Tablet 5 01/25/2024 Active Alendronate Sodium 70 MG Oral Tablet (Fosamax)Indicati ons:High risk for fracture due to osteoporosis by DEXA scan Take 1 Tablet by mouth once a week. with 8 oz. water 30 minutes before first meal of the day. Remain upright for 30 min after taking tablet 12 Tablet 3 03/13/2024 Active Mirtazapine 15 MG Oral Tablet (Remeron)Indicati ons:Adjustment insomnia TAKE 1 TABLET BY MOUTH EVERYDAY AT BEDTIME 90 Tablet 1 03/16/2024 Active Mirtazapine 15 MG Oral Tablet (Remeron)Indicati ons:Adjustment insomnia Take 1 Tablet by mouth at bedtime. 90 Tablet 1 11/21/2023 03/16/20 24 Discontinued documented as of this encounter (statuses as of 03/16/2024) Active Problems Problem Noted Date Diagnosed Date [...] as of this encounter (statuses as of 03/16/2024) Resolved Problems Problem Noted Date Diagnosed Date Resolved Date Myasthenia gravis with exacerbation 12/14/2022 12/19/2023 Nonallopathic lesion of abdo men and other sites, not elsewhere classified 11/22/2003 06/30/19 12 documented as of this encounter (statuses as of 03/16/2024) Immunizations Name Administration Dates Next Due COVID-19 [...] encounter Miscellaneous Notes * Telephone Encounter - Demario Belcher DO - 03/16/2024 2:57 PM EDT Signed Prescriptions: Disp Refills Mirtazapine 15 MG Oral Tablet (Remeron) 90 Tab*1 Sig: TAKE 1 TABLET BY MOUTH EVERYDAY AT BEDTIME Authorizing Provider: DEMARIO BELCHER * Telephone Encounter - Yudelka Ferrera LPN - 03/16/2024 1:21 PM EDTPending Prescriptions: Disp Refills Mirtazapine 15 MG Oral Tablet [Pharmacy Me*90 Tab*1 Sig: TAKE 1 TABLET BY MOUTH EVERYDAY AT BEDTIME * Telephone Encounter - NicolStephen westjoelle elizabeth - 03/16/2024 1:09 PM EDTPending Prescriptions: Disp Refills Mirtazapine 15 MG Oral Tablet [Pharmacy Me*90 Tab*1 Sig: TAKE 1 TABLET BY MOUTH EVERYDAY AT BEDTIME * Telephone Encounter - Dolores Daniel elizabeth - 03/16/2024 1:07 PM EDT Did you pend patient's preferred pharmacy and medication before forwarding?yes Pharmacy: [id number] Pending Prescriptions: Disp Refills Mirtazapine 15 MG Oral Tablet (Remeron) [*90 Tab*1 Sig: TAKE 1 TABLET BY MOUTH EVERYDAY AT BEDTIME Last Visit: 05/31/2023 (in office), Visit date not found (telemedicine) Next Visit: Visit date not found If no future appointments scheduled, and last appointment is greater than a year ago, please schedule patient for a follow-up appointment Last date the medication was ordered: 11/21/2023 Is this request for a controlled substance?No [...] 10:30 AM EDT Hem/Onc Treatment Hematology/Oncology Treatment, [place] [facility] [phone] Krista, Chair 4 Hem Onc [address] 200 [place] [address] 03/26/2024 10:30 AM EST Hem/Onc Treatment Hematology/Oncology Treatment, [place] [facility] [phone] Krista, Chair 8 Hem Onc [place] [address] [facility] [place] [address] 04/02/2024 9:30 AM EST Hem/Onc Treatment Hematology/Oncology Treatment, [place] [facility] [phone] Krista, Chair 7 Hem Onc [place] [address] [facility] [place] [address] 04/09/2024 9:00 AM EST Telemedicine Neurology Nathan [address] [place] [phone] Nathan, Pharmacist Neurology [address] [facility] [place] [address] 05/04/2024 9:45 AM EST Office Visit Dermatology [facility] Krista [place] [address] [place] [address] Marshall Henson MD 200 [facility] [place] [address] 06/18/2024 11:30 AM EST Office Visit Urology, [facility] [address] [place] [address] Ramesh Phan MD [address] [place] [address] 06/22/2024 10:40 AM EST Office Visit [facility] [address] [place] [address] Theresa Johnson MD 200 [place] [address] 07/25/2024 11:00 AM EST Office Visit Neurology Nathan [address] [place] [address] Maksim Wright MD [address] [facility] [address] Scheduled Procedures Name Priority Associated Diagnoses [...] this encounter Medical Devices Implanted Type Area Communication And Outreach Manager Device Identifier Shelf Expiration Date Model / Serial / Lot Port Powerflow 9.6fr - [id number] Implanted:Qty : 1 on 03/15/2023 at [facility] CR BARD : PERIPHERAL VASCULAR [id number] 10/21/2023 [id number] / / [id number] Power Port 8fr Sngl Lumen Plas - [id number] Implanted:Qty : 1 on 03/15/2023 at [facility] CR BARD : PERIPHERAL VASCULAR [id number] 03/22/2024 [id number] / / [id number] Lens Li61ao 13.00mm 18.00 - [id number] - [id number] Implanted:Qty : 1 on 02/02/2024 by Andre Swartz MD at [facility] Right: Eye BAUSCH & LOMB 08/20/2028 [id number] / [id number] / [id number] Lens Li61ao 13.00mm 17.50 - [id number] - [id number] Implanted:Qty : 1 on 02/16/2024 by Andre Swartz MD at [facility] Left: Eye BAUSCH & LOMB 07/20/2028 [id number] / [id number] / [id number] documented as of this encounter Visit Diagnoses Diagnosis Adjustment insomnia Transient disorder of initiating or maintaining sleep documented in this encounter Advance Directives Documents on File Type Date Recorded 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 No Care Teams Pipe Line Walker Relationship Specialty Start Date End Date Theresa Johnson MD [address] [place] [address] PCP - General Family Medicine 12/19/23 documented as of this encounter
--- OUTSIDE RECORDS SUMMARY | 2024-06-23 06:17 | External Medical Summary | Summary of Care ---
Author Name Unknown Organization [facility] Address [address] [place] [address] Phone [phone] Care Team Providers Care Valet Service Attendant Name Role Phone Theresa Johnson MD Primary Care Provider Reason for Visit * Reason Comments Infusion Vygart * Episode Based Medications (Routine) - Authorized Specialty Diagnoses / Procedures Referred By Contac t Referred To Contact Diagnoses Myasthenia gravis (HCC) Procedures [place] INJECTION, EFGARTIGIMOD EVANGELINA-FCAB, 2MG Maksim Wright MD [address] [place] [address] Anc Hem/Onc [address] [address] Referral ID Status Reason Start Date Expiration Date V isits Requested Visits Authorized [id number] Authorized 11/04/2023 11/03/2024 99 99 Encounter Details Date Type Department Care Team (Latest Contact Info) Description 03/12/2024 11:30 AM EDT Hem/Onc Treatment Hematology/Oncology Treatment, [address] [address] Krista, Chair 7 Hem Onc [address] [place] [address] Myasthenia gravis (HCC)* Allergies Active Allergy Reactions Criticality Noted Date Comments Benzalkonium Chloride 02/21/2015 Merthiolate "the orange kind" Caused a rash Milk (Cow) Diarrhea 02/05/2015 documented as of this encounter (statuses as of 03/12/2024) Medications Medication Sig Dispensed Refills Start Date End Date Status ALEVE 220 MG PO CAPS as needed Active Fluticasone Propionate 50 MCG/ACT Nasal Suspension Administer 1 [place] into nostril in the morning. Active FIBER [...] as of this encounter (statuses as of 03/12/2024) Active Problems Problem Noted Date Diagnosed Date [...] as of this encounter (statuses as of 03/12/2024) Resolved Problems Problem Noted Date Diagnosed Date Resolved Date Myasthenia gravis with exacerbation 12/14/2022 12/19/2023 Nonallopathic lesion of abdo men and other sites, not elsewhere classified 11/22/2003 06/30/19 12 documented as of this encounter (statuses as of 03/12/2024) Immunizations Name Administration Dates Next Due COVID-19 [...] Sign Reading Time Taken Comments Blood Pressure 129/71 03/12/2024 11:50 AM EDT Pulse 95 03/12/2024 11:50 AM EDT Temperature 36.3 C (97.3 F) 03/12/2024 11:50 AM E DT Respiratory Rate 18 03/12/2024 11:50 AM EDT Oxygen Saturation 97% 03/12/2024 11:50 AM EDT Inhaled Oxygen Concentration - - Weight - - Height - - Body Mass Index - - documented in this encounter Nursing Notes * Azucena Sarmiento LPN - 03/12/2024 11:50 AM EDT 1130: Pt arrived for vygart infusion. PIV in R metacarpal. Pt tolerated well. VSS. Patient instructed on use of heat and massage functions where applicable. Patient shown how to operate the heat function of the chair and to alert nursing staff if the chair feels too warm. Patient instructed on the risk of potential rodriguez while using the heat function. Pt has no complaints at this time. 1315: Pt tolerated Vygart infusion well. PIV removed intact. Pt to return in one week. Discharged in stable condition. documented in this encounter Plan of Treatment Upcoming Encounters Date Type Department Care Team (Late st Contact Info) Description 03/19/2024 10:30 AM EDT Hem/Onc Treatment Hematology/Oncology Treatment, [address] [place] [phone] Krista, Chair 4 Hem Onc [address] [place] [address] [place] [address] 03/26/2024 10:30 AM EST Hem/Onc Treatment Hematology/[address]cology [address], [address] [phone] Krista, Chair 8 Hem Onc [facility] [address] [place] [address] [place] [address] 04/02/2024 9:30 AM EST Hem/Onc Treatment Hematology/[address]cology [address] [phone] Krista, Chair 7 Hem Onc Scenery [address] [facility] [place] [address] 04/09/2024 9:00 AM EST Telemedicine Neurology [address] [place] [phone] Nathan, Pharmacist Neurology [address] [place] [address] [place] [address] 05/04/2024 9:45 AM EST Office Visit Dermatology [facility] [place] [address] [facility] [place] [address] Marshall Henson MD [address] [facility] [place] [address] 06/18/2024 11:30 AM EST Office Visit Urology, [facility] [address] [place] [address] Ramesh Phan MD [address] [place] [address] 06/22/2024 10:40 AM EST Office Visit Family Practice I[facility] [place] [address] [facility] [place] [address] Theresa Johnson MD [address] [place] [address] 07/25/2024 11:00 AM EST Office Visit Neurology [facility] [address] [place] [address] [place] [address] Maksim Wright MD [address] [facility] [place] [address] Scheduled Procedures [...] this encounter Medical Devices Implanted Type Area Commission Auditor Device Identifier Shelf Expiration Date Model / Serial / Lot Port Powerflow 9.6fr - [id number] Implanted:Qty : 1 on 03/15/2023 at [facility] : PERIPHERAL VASCULAR [id number] 10/21/2023 [id number] / / [id number] Power Port 8fr Sngl Lumen Plas - [id number] Implanted:Qty : 1 on 03/15/2023 at [facility] CR BARD : PERIPHERAL VASCULAR [id number] 03/22/2024 [id number] / / [id number] Lens Li61ao 13.00mm 18.00 - [id number] - [id number] Implanted:Qty : 1 on 02/02/2024 by Andre Swartz MD at [facility] Right: Eye [employer] 08/20/2028 [id number] / [id number] / [id number] Lens Li61ao 13.00mm 17.50 - [id number] - [id number] Implanted:Qty : 1 on 02/16/2024 by Andre Swartz MD at [facility] Left: Eye BAUSCH & LOMB 07/20/2028 [id number] / [id number] / [id number] documented as of this encounter Visit Diagnoses Diagnosis Myasthenia gravis (HCC)- Primary Myasthenia gravis without exacerbation documented in this encounter Administered Medications Active Administered Medications - up to 3 most recent administrations Medication Order MAR Action Action Date Dose Rate Site diphenhydrAMINE (Benadryl) inj 50 mg 50 mg, IV Push, ONCE PRN Other, Hypersensitivity Reaction, Starting on Tue03/12/24 at 1124, Until Tue03/13/24 at 1123, For 24 hours EPINEPHrine 1 MG/ML inj 0.3 mg 0.3 mg, Intramuscular, ONCE PRN Other, Hypersensitivity Reaction or Anaphylaxis, Starting on Tue03/12/24 at 1124, Until Tue03/13/24 at 1123, For 24 hours hEParin 100 UNIT/ML Lock Flush inj 500 Units 500 Units (5 mL), IV Lock, PRN Other, IV Flush, Starting on Tue03/12/24 at 1124, Until Tue03/13/24 at 1123, For 24 hours, Do not flush if lock, PICC, or central line not in place; IV infusing or unable to flush. Hydrocortisone Sod Suc (PF) (Solu-Cortef) inj 100 mg 100 mg, IV Push, ONCE PRN Other, Hypersensitivity Reaction, Starting on Tue03/12/24 at 1124, Until Tue03/13/24 at 1123, For 24 hours NSS infusion Intravenous, at 50 mL/hr, PRN, Starting on Tue03/12/24 at 1230, Until Discontinued, Maintenance line Start Infusion 03/12/2024 11:37 AM EDT 50 mL/hr oxygen GAS Inhalation, OXYGEN, First dose on Tue03/12/24 at 1600, Until Discontinued, Device/Managed by: Low Flow Device, [...] Push, PRN Other, IV Flush, Starting on Tue03/12/24 at 1124, Until Tue03/13/24 at 1123, For 24 hours, Do not flush if lock, PICC, or central line not in place; IV infusing or unable to flush. Inactive Administered Medications - up to 3 most recent administrations Medication Order MAR Action Action Date Dose Rate Site Efgartigimod evangelina-fcab (Vyvgart) 800 mg in NSS 125 mL infusion 800 mg, IV Piggyback, ONCE, 1 dose, On 03/12/24 at 1215, In NSS Note: VOLUME TO BE INFUSED 125 ML Infuse over 1 hour via a 0.2 micron in-line filter; do not administer as IV push or bolus. Following administration, flush entire line with NS. Start Infusion 03/12/2024 12:08 PM EDT 800 mg 125 mL/hr documented in this encounter Advance Directives Documents on File Type Date Recorded Patient Bar Back Expl anation Power of Director Of Infection Prevention 06/20/2018 POWER OF A TTORNEY POA: EDEL- [...] Power of Attor ephraim? No Care Teams Valet Service Attendant Relationship Specialty Start Date End Date Theresa Johnson MD [address] [facility] [place] [address] PCP - General Family Medicine 12/19/23 documented as of this encounter
--- OUTSIDE RECORDS SUMMARY | 2024-06-23 06:18 | External Medical Summary | Summary of Care ---
Author Name Unknown Organization [facility] Address [address] [place] [place] [address] Phone [phone] Care Team Providers Care Fire Inspector Name Role Phone Theresa Johnson MD Primary Care Provider [phone] Reason for Visit * Reason Comments Dosage Adjustment Via Phone (anticoag Cl inic) Encounter Details Date Type Department Care Team (Late st Contact Info) Description 02/07/2024 10:00 AM EDT Telemedicine Neurology [address] [place] [phone] Neto, Pharmacist Neurology [address] [place] [address] Myasthenia gravis (HCC)* Allergies Active Allergy Reactions Criticality Noted Date Comments Benzalkonium Chloride 02/21/2015 Merthiolate "the orange kind" Caused a rash Milk (Cow) Diarrhea 02/05/2015 documented as of this encounter (statuses as of 02/07/2024) Medications Medication Sig Dispensed Refills Start Date End Date Status ALEVE 220 MG PO CAPS as needed Active Fluticasone Propionate 50 MCG/ACT Nasal Suspension Administer 1 [place] into nostril in the morning. Active FIBER [...] as of this encounter (statuses as of 02/07/2024) Active Problems Problem Noted Date Diagnosed Date [...] as of this encounter (statuses as of 02/07/2024) Resolved Problems Problem Noted Date Diagnosed Date Resolved Date Myasthenia gravis with exacerbation 12/14/2022 12/19/2023 Nonallopathic lesion of abdo men and other sites, not elsewhere classified 11/22/2003 06/30/19 12 documented as of this encounter (statuses as of 02/07/2024) Immunizations Name Administration Dates Next Due COVID-19 [...] this encounter Progress Notes * Anette Tanner, [facility] - 02/07/2024 9:25 AM EDT Images from the original note were not included. Patient Symptom Assessment [facility] Neurology Patient location: HOME. I was in a hospital or clinic location. After connecting through [employer],patient was verified with two unique identifiers. Patient (or authorized legal traffic workforce representative) was then informed that this was [...] Disposition: Routine follow-up Total call duration was 11 minutes. Vyvgart Dosing - Cycle 1 -09/16/23, 09/23/23, 09/30/23 , 10/07/23 Cycle 2- 11/14/23, 11/21/23, 11/28/23, 12/05/23 Cycle 3- 01/12/24, 01/19/24, 01/26/24, 02/01/24 Baseline MG-ADL completed on 09/02/23: 6 MG-ADL on 02/07/24: Talkin [place] Swallowin Breathin Impairment of ability to brush teeth of comb hair: 0 Impairment of ability to arise from chair: 2 - believes this is due to not working core muscles/quads Double vision: 3 Eyelid droop: 2 - states has always been daily but not full closure - stable ptosis Total Score: 8 Patient states he is feeling really good (despite MG-ADL score not improving much). He had cataractsurgery last so he hasn't been as mobile as he would like to be but hoping to return to the gym tomorrow. He is going on a cruise at the end of March that he is looking forward to! This makes him hesitant to reduce prednisone dose right now as his Vyvgart cycle won't be due until he returns from the cruise. Patient sent MyG to Dr. Wright regarding this. Plan is for patient to start next cycle at day 53 (03/05/24). SCP placed in separate encounter. Patient was advised to contact the clinic in the meantime with any questions or concerns. Follow up: 1 week for MG-ADL call Anette Tanner RPh Clinical Pharmacist, Neurology Medication Therapy Disease Management 02/07/2024 9:26 AM documented in this encounter Plan of Treatment Upcoming Encounters Date Type Department Care Team (Late st Contact Info) Description 02/14/2024 10:00 AM EDT Telemedicine Neurology [address] [place] [place] [phone] Neto, Pharmacist Neurology [address] [place] [address] [place] [address] 02/16/2024 9:21 AM EDT Hospital Encounter [facility], Operating Room [facility] [address] [place] [address] Andre Swartz MD [address] [address] 02/16/2024 9:21 AM EDT - 02/16/2024 9:56 AM EDT Surgery OR [facility], Operating Room [facility] [address] [place] [address] Andre Swartz MD [address] [place] [address] LEFT EXTRACAPSULAR CATARACT REMOVAL WITH INTRAOCULAR LENS 05/04/2024 9:45 AM EST Office Visit Dermatology [facility] [address] [place] [address] Marshall Henson MD [address] [facility] [place] [address] 06/18/2024 11:30 AM EST Office Visit Urology, [facility] [address] [facility] [place] [address] Ramesh Phan MD [address] [place] [address] 06/22/2024 10:40 AM EST Office Visit Family Practice [facility] [address] [place] [address] Theresa Johnson MD [address] [facility] [place] [address] 07/25/2024 11:00 AM EST Office Visit Neurology [address] [place] [address] Maksim Wright MD [address] [place] [facility] [place] [address] Scheduled Procedures Name Priority Associated Diagnoses [...] this encounter Medical Devices Implanted Type Area Car Stower Device Identifier Shelf Expiration Date Model / Serial / Lot Port Powerflow 9.6fr - [id number] Implanted:Qty : 1 on 03/15/2023 at [facility] CR BARD : PERIPHERAL VASCULAR [id number] 10/21/2023 [id number] / / [id number] Power Port 8fr Sngl Lumen Plas - [id number] Implanted:Qty : 1 on 03/15/2023 at [facility] CR BARD : PERIPHERAL VASCULAR [id number] 03/22/2024 [id number] / / [id number] Lens Li61ao 13.00mm 18.00 - [id number] - [id number] Implanted:Qty : 1 on 02/02/2024 by Andre Swartz MD at [facility] Right: Eye BAUSCH & LOMB 08/20/2028 [id number] / [id number] / [id number] documented as of this encounter Visit Diagnoses Diagnosis Myasthenia gravis (HCC)- Primary Myasthenia gravis without exacerbation 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 eye Other and combined forms of senile cataract documented in this encounter Advance Directives Documents on File Type Date Recorded Patient Last Model Department Supervisor Expl anation Power of Career Technical Counselor 06/20/2018 POWER OF A TTORNEY POA: EDEL- [...] Power of Attor ephraim? No Care Teams Fire Inspector Relationship Specialty Start Date End Date Theresa Johnson MD [address] [place] [address] PCP - General Family Medicine 12/19/23 documented as of this encounter
--- OUTSIDE RECORDS SUMMARY | 2024-06-23 06:18 | External Medical Summary | Summary of Care ---
Author Name Unknown Organization [facility] Address [address] [place] [facility] [place] [address] Phone [phone] Care Team Providers Care Back Hoe Operator Name Role Phone Theresa Johnson MD Primary Care Provider [phone] Reason for Visit * Reason Comments pre-op exam Encounter Details Date Type Department Care Team (Late st Contact Info) Description 01/16/2024 9:00 AM EDT Office Visit Family [facility] [address] [facility] [place] [address] Miriam Marx PA-C [address] [facility] [place] [address] Age-related cataract of both eyes, unspecified age-related cataract type*; Pre-op examination; BPH with obstruction/lower urinary tract symptoms; Diplopia; Myasthenia gravis (HCC) Allergies Active Allergy Reactions Criticality Noted Date Comments Benzalkonium Chloride 02/21/2015 Merthiolate "the orange kind" Caused a rash Milk (Cow) Diarrhea 02/05/2015 documented as of this encounter (statuses as of 02/09/2024) Medications Medication Sig Dispensed Refills Start Date End Date Status ALEVE 220 MG PO CAPS as needed Active Fluticasone Propionate 50 MCG/ACT Nasal Suspension Administer 1 Durant into nostril in the morning. Active FIBER [...] 03/16/2023 Active Mirtazapine 15 MG Oral Tablet (Remeron)Indicati [...] tablet 5 Tablet 11 01/10/2024 Active predniSONE 10 MG Oral Tablet (Deltasone)Indica tions:Vitamin D deficiency, unspecified,Diplo jamie TAKE 1 TABLET BY MOUTH DAILY 30 Tablet 2 10/12/2023 01/25/20 24 Discontinued documented as of this encounter (statuses as of 02/09/2024) Active Problems Problem Noted Date Diagnosed Date [...] as of this encounter (statuses as of 02/09/2024) Resolved Problems Problem Noted Date Diagnosed Date Resolved Date Myasthenia gravis with exacerbation 12/14/2022 12/19/2023 Nonallopathic lesion of abdo men and other sites, not elsewhere classified 11/22/2003 06/30/19 12 documented as of this encounter (statuses as of 02/09/2024) Immunizations Name Administration Dates Next Due COVID-19 [...] Sign Reading Time Taken Comments Blood Pressure 114/76 01/16/2024 9:07 AM EDT Pulse 85 01/16/2024 9:07 AM EDT Temperature 36.5 C (97.7 F) 01/16/2024 9:07 AM ED T Respiratory Rate - - Oxygen Saturation 96% 01/16/2024 9:07 AM EDT Inhaled Oxygen Concentration - - Weight 90.8 kg (200 lb 4 oz) 01/16/2024 9:07 AM EDT Height 170.2 cm (5' 7.01") 01/16/2024 9:07 AM ED T Body Mass Index 31.36 01/16/2024 9:07 AM EDT documented in this encounter Progress Notes * Miriam Marx PA-C - 01/16/2024 8:59 AM EDT Subjective: Giorgio Sosa is a 74 year old male. Presents at the request of Dr Swartz for medical clearance for cataract removal. PHM: Patient Active Problem List Diagnosis Family history of malignant neoplasm of prostate Family history of other cardiovascular diseases Allergic rhinitis due to pollen ADVANCE DIRECTIVE INFORMATION Headache FH: prostate cancer BPH with obstruction/lower urinary tract symptoms Prostate cancer (HCC) History of basal cell cancer Ptosis of right eyelid Elevated prostate specific antigen (PSA) Double vision Myasthenia gravis (HCC) Facial weakness Diplopia Current Outpatient Medications Medication Sig Dispense Refill ALEVE 220 MG PO CAPS as needed Fluticasone Propionate 50 MCG/ACT Nasal Suspension Administer 1 Durant into nostril in the morning. FIBER ADULT [...] facility-administered medications for this visit. Past Medical History: Diagnosis Date Allergic disorder Allergy unspecified Allergic rhinitis due to pollen BPH with obstruction/lower urinary tract symptoms 06/30/2011 FAMILY HX MALTIFFANY.NEOPLASM PROSTATE 01/19/2001 Migraine Migraines,unspecified Prostate cancer (HCC) 04/28/2015 t1c Small volume sayda 6 Past Surgical History: Procedure Laterality Date COLONOSCOPY, DIAGNOSTIC (RECTUM) 04/10/2015 adenomatous & hyperplastic polyps, diverticulosis, repeat 5 yrs/COLONOSCOPY FLEXIBLE PROXIMAL DIAGNOSTIC performed by Anjelica Lucas DO at ENDOSCOPY [facility] COLONOSCOPY, DIAGNOSTIC (RECTUM) 05/26/2020 adenomatous polyp, repeat 5 yrs / COLONOSCOPY FLEXIBLE PROXIMAL DIAGNOSTIC performed by Anjelica Lucas DO at ENDOSCOPY [facility] COLONOSCOPY, GI REFERRAL OP 2004 wnl-repeat 10 yrs COLORECTAL CANCER SCREEN;W/FLE 10/1998 wnl DENTAL SURGERY PROCEDURE NEC Dental Surgery Procedure IR APHERESIS ACCESS 03/15/2023 NEEDLE/PUNCH BIOPSY OF PROSTATE 04/21/2015 Prostate,Needle/Punch Biopsy REMOV ELSIE HOMERO JAZMINE ACC DEV,WITH N/A 01/06/2024 REMOVAL OF TUNNELED CENTRAL VENOUS ACCESS DEVICE WITH PORT performed by Osvaldo Aden MD at OR [facility] REMOVE TONSILS & ADENOIDS, AGE 12+ SKIN LESIONS BIOPSY,ADDED 05/02/2018 chest area basal cell removed by Dr Mejia Review of patient's allergies indicates: Allergen Reactions Merthiolate [Benzalkonium Chloride] Merthiolate "the orange kind" Caused a rash Milk [Milk (Cow)] Diarrhea Family History Problem Relation Name Age of [...] Other No Known Problems Son Family Status Relation Status Mo diabetes Fa Sis Alive Sis Alive UNCLE (Not Specified) UNCLE (Not Specified) UNCLE (Not Specified) Other Alive Son Alive Social History Tobacco Use Smoking status: Never Passive exposure: Past Smokeless tobacco: Never Tobacco comments: Mother smoked around as child no current passive smoke exposure Substance Use Topics Alcohol use: Not Currently Comment: occ Vaping/E-Cigarette Use Vaping/E-Cigarette Use Never User Passive Exposure No Counseling Given? No Vaping/E-Cigarette Substances Vaping/E-Cigarette Devices Review of Systems: General: No [...] cataract surgery on 02/16/2024. Miriam Marx Physician Washing Tub Operator - Certified documented in this encounter Nursing Notes * Nanci Cornelius CMA - 01/16/2024 9:02 AM EDT Patient presents today for pre-op exam. He is scheduled for right cataract removal on 02/02/24 and left cataract removal on 02/16/[address] Swartz. documented in this encounter Plan of Treatment Upcoming Encounters Date Type Department Care Team (Late st Contact Info) Description 02/14/2024 10:00 AM EDT Telemedicine Neurology [address] [place] [phone] Nathan, Pharmacist Neurology [address] [place] [address] [place] [address] 02/16/2024 9:21 AM EDT Hospital Encounter OR [facility], Operating Room [facility] [address] [facility] [place] [phone] Andre Swartz MD [address] [address] 02/16/2024 9:21 AM EDT - 02/16/2024 9:56 AM EDT Surgery OR [facility], Operating Room [facility] [address] [facility] [place] [phone] Andre Swartz MD [address] [place] [address] LEFT EXTRACAPSULAR CATARACT REMOVAL WITH INTRAOCULAR LENS 03/05/2024 10:30 AM EDT Hem/Onc Treatment Hematology/Oncolo gy Treatment, [place] [address] [place] [address] 03/12/2024 11:30 AM EDT Hem/Onc Treatment Hematology/Oncolo gy Treatment, [place] 200 [facility], [place] [address] Krista, Chair 7 Hem Onc Scenery [address] [facility] [place] [address] 03/19/2024 10:30 AM EDT Hem/Onc Treatment Hematology/Oncolo gy Treatment, [address], [place] [address] Krista, Chair 4 Hem Onc Scenery [address] [facility] [place], [place] [address] 03/26/2024 10:30 AM EST Hem/Onc Treatment Hematology/Oncolo gy Treatment, [address], [place] [address] Krista, Chair 8 Hem Onc Scenery [address] [facility] [place], [place] [address] 05/04/2024 9:45 AM EST Office Visit Derm[facility]ology [facility] [place] [address] [facility] [place], [place] [address] Marshall Henson MD [address] [place] [address] 06/18/2024 11:30 AM EST Office Visit Urology, [facility] [address] [place] [address] Ramesh Phan MD [address] [place] [address] 06/22/2024 10:40 AM EST Office Visit Family Practice [facility] [address] [place] [address] Theresa Johnson MD [address] [place] [address] 07/25/2024 11:00 AM EST Office Visit Neurology Gerardo [facility] [place] [address] [place] [address] Maksim Wright MD [address] [facility] [place] [address] Scheduled Procedures [...] this encounter Medical Devices Implanted Type Area Jet Dyeing Machine Tender Device Identifier Shelf Expiration Date Model / Serial / Lot Port Powerflow 9.6fr - [id number] Implanted:Qty : 1 on 03/15/2023 at [facility] CR BARD : PERIPHERAL VASCULAR [id number] 10/21/2023 [id number] / / [id number] Power Port 8fr Sngl Lumen Plas - [id number] Implanted:Qty : 1 on 03/15/2023 at [facility] CR BARD : PERIPHERAL VASCULAR [id number] 03/22/2024 [id number] / / [id number] Lens Li61ao 13.00mm 18.00 - [id number] - [id number] Implanted:Qty : 1 on 02/02/2024 by Andre Swartz MD at [facility] Right: Eye [employer]OM[employer] 08/20/2028 [id number] / [id number] / [id number] documented as of this encounter Visit Diagnoses Diagnosis Age-related cataract of both eyes, unspecified age-related cataract type- Primary Pre-op examination Preoperative examination, unspecified BPH with obstruction/lower urinary tract symptoms Hypertrophy of prostate with urinary obstruction and other lower urinary tract symptoms (LUTS) Diplopia Myasthenia gravis (HCC) Myasthenia gravis without exacerbation 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 eye Other and combined forms of senile cataract documented in this encounter Advance Directives Documents on File Type Date Recorded Patient Speed Winder Expl anation Power of Edge Bonder 06/20/2018 POWER OF A TTORNEY POA: EDEL- [...] Power of Attor ephraim? No Care Teams Back Hoe Operator Relationship Specialty Start Date End Date Theresa Johnson MD [address] [place] [address] PCP - General Family Medicine 12/19/23 documented as of this encounter
--- OUTSIDE RECORDS SUMMARY | 2024-06-23 06:18 | External Medical Summary | Summary of Care ---
Author Name Unknown Organization [facility] Address [address] [place] [address] Phone [phone] Care Team Providers Care Automobile Glass Technician Name Role Phone Theresa Johnson MD Primary Care Provider [phone] Reason for Visit * Reason Onset Date Comments Appointment 02/07/2024 Encounter Details Date Type Department Care Team (Late st Contact Info) Description 02/07/2024 Telephone Hematology/Oncology Treatment, [place] [address] [place] [address] Maksim Wright MD [address] [place] [address] Appointment Allergies Active Allergy Reactions Criticality Noted Date Comments Benzalkonium Chloride 02/21/2015 Merthiolate "the orange kind" Caused a rash Milk (Cow) Diarrhea 02/05/2015 documented as of this encounter (statuses as of 02/08/2024) Medications Medication Sig Dispensed Refills Start Date End Date Status ALEVE 220 MG PO CAPS as needed Active Fluticasone Propionate 50 MCG/ACT Nasal Suspension Administer 1 Causey into nostril in the morning. Active FIBER [...] as of this encounter (statuses as of 02/08/2024) Active Problems Problem Noted Date Diagnosed Date [...] as of this encounter (statuses as of 02/08/2024) Resolved Problems Problem Noted Date Diagnosed Date Resolved Date Myasthenia gravis with exacerbation 12/14/2022 12/19/2023 Nonallopathic lesion of abdo men and other sites, not elsewhere classified 11/22/2003 06/30/19 12 documented as of this encounter (statuses as of 02/08/2024) Immunizations Name Administration Dates Next Due COVID-19 [...] Telephone Encounter - Gladis Louise OSA - 02/08/2024 9:08 AM EDT Apts scheduled and pt is aware * Telephone Encounter - Paola Caraballo RN - 02/07/2024 3:16 PM EDT Received vyvgart order: ":Please schedule first dose of next cycle on 03/05/24 (53 days from start of previous cycle)" Jupiter plan and auth both in place. Scheduling: please call patient to schedule 3 hour appt "vyvgart 05/26" (Dr Maksim Wright). Patient will need this once a week x4, so will need this 03/05, 03/12, 03/19, 03/26. Thanks! Yunier: please order vyvgart for 03/05 appt. Thanks! documented in this encounter Plan of Treatment Upcoming Encounters Date Type Department Care Team (Late st Contact Info) Description 02/14/2024 10:00 AM EDT Telemedicine Neurology Nathan Lawson [address] [place], [place] [phone] Nathan, Pharmacist Neurology [address] [place] [address] 02/16/2024 9:21 AM EDT Hospital Encounter OR [facility], Operating Room [facility] [address] [place] [phone] Andre Swartz MD [address] [place] [address] 02/16/2024 9:21 AM EDT - 02/16/2024 9:56 AM EDT Surgery OR [facility], Operating Room [facility] [address] [place] [phone] Andre Swartz MD [address] [place] [address] LEFT EXTRACAPSULAR CATARACT REMOVAL WITH INTRAOCULAR LENS 03/05/2024 10:30 AM EDT Hem/Onc Treatment Hematology/Oncolo gy Treatment, [address] [place] [address] 03/12/2024 11:30 AM EDT Hem/Onc Treatment Hematology/Oncolo gy Treatment, [address] [place] [address] Krista, Chair 7 Hem Onc Scenery 200 [facility] [place], [place] [address] 03/19/2024 10:30 AM EDT Hem/Onc Treatment Hematology/Oncolo gy Treatment, [address] [place] [address] Park, Chair 4 Hem Onc Scenery 200 [facility] [place] [address] 03/26/2024 10:30 AM EST Hem/Onc Treatment Hematology/Oncolo gy Treatment, [address] [place] [address] Krista, Chair 8 Hem Onc Scenery 200 [facility] [place] [address] 05/04/2024 9:45 AM EST Office Visit Dermatology [facility] [address] [place] [address] Marshall Henson MD 200 [facility] [place] [address] 06/18/2024 11:30 AM EST Office Visit Urology, [facility] [place] [address] Ramesh Phan MD [address] [place] [address] 06/22/2024 10:40 AM EST Office Visit Family Practice [facility] [address] [place] [address] Theresa Johnson MD 200 [facility] [place] [address] 07/25/2024 11:00 AM EST Office Visit Neurology Nathan [address] [place] [address] Maksim Wright MD [address] [place] [address] Scheduled Procedures Name Priority Associated [...] encounter Medical Devices Implanted Type Area Client Service Administrator Device Identifier Shelf Expiration Date Model / Serial / Lot Port Powerflow 9.6fr - [id number] Implanted:Qty : 1 on 03/15/2023 at [facility] CR BARD : PERIPHERAL VASCULAR [id number] 10/21/2023 [id number] / / [id number] Power Port 8fr Sngl Lumen Plas - [id number] Implanted:Qty : 1 on 03/15/2023 at [facility] CR BARD : PERIPHERAL VASCULAR [id number] 03/22/2024 [id number] / / [id number] Lens Li61ao 13.00mm 18.00 - [id number] - [id number] Implanted:Qty : 1 on 02/02/2024 by Andre Swartz MD at [facility] Right: Eye [employer]OM[employer] 08/20/2028 [id number] / [id number] / [id number] documented as of this encounter Advance Directives Documents on File Type Date Recorded 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 No Care Teams Automobile Glass Technician Relationship Specialty Start Date End Date Theresa Johnson MD [address] [facility] [place] [address] PCP - General Family Medicine 12/19/23 documented as of this encounter
--- OUTSIDE RECORDS SUMMARY | 2024-06-23 06:18 | External Medical Summary | Summary of Care ---
Author Name Unknown Organization [facility] Address [address] [facility] [address] Phone [phone] Care Team Providers Care Lead Python Developer Name Role Phone Theresa Johnson MD Primary Care Provider [phone] Reason for Visit * Reason Onset Date Comments Pre-op Clearance 02/08/2024 Encounter Details Date Type Department Care Team (Late st Contact Info) Description 02/08/2024 Telephone Family Practice [facility] [address] [place] [address] Miriam Marx PA-C [address] [facility] [place] [address] Pre-op Clearance Allergies Active Allergy Reactions Criticality Noted Date Comments Benzalkonium Chloride 02/21/2015 Merthiolate "the orange kind" Caused a rash Milk (Cow) Diarrhea 02/05/2015 documented as of this encounter (statuses as of 02/10/2024) Medications Medication Sig Dispensed Refills Start Date [...] as of this encounter (statuses as of 02/10/2024) Active Problems Problem Noted Date Diagnosed Date [...] as of this encounter (statuses as of 02/10/2024) Resolved Problems Problem Noted Date Diagnosed Date Resolved Date Myasthenia gravis with exacerbation 12/14/2022 12/19/2023 Nonallopathic lesion of abdo men and other sites, not elsewhere classified 11/22/2003 06/30/19 12 documented as of this encounter (statuses as of 02/10/2024) Immunizations Name Administration Dates Next Due COVID-19 [...] Miscellaneous Notes * Telephone Encounter - Paola Serrano LPN - 02/10/2024 11:42 AM EDT Note faxed confirmation received * Telephone Encounter - Miriam Marx PA-C - 02/09/2024 8:58 PM EDT Note addended. Please fax * Telephone Encounter - Ana Tariq OSA - 02/08/2024 6:26 AM EDT Pt seen in the office 01/16/2024 for cataract pre op clearance but this clearance will just be overour 30 days allowed for his upcoming procedure on 02/16/2024. Is the provider willing to addend this office note and clear the patient? Thanks documented in this encounter Plan of Treatment Upcoming Encounters Date Type Department Care Team (Late st Contact Info) Description 02/14/2024 10:00 AM EDT Telemedicine Neurology Nathan [address] [place] [phone] Nathan, Pharmacist Neurology [address] [facility] [place] [address] 02/16/2024 9:21 AM EDT Hospital Encounter OR [facility], Operating Room [facility] [address] [place] [phone] Andre Swartz MD [address] [place] [address] 02/16/2024 9:21 AM EDT - 02/16/2024 9:56 AM EDT Surgery OR [facility], Operating Room [facility] [address] [place] [phone] Andre Swartz MD [address] [place] [address] LEFT EXTRACAPSULAR CATARACT REMOVAL WITH INTRAOCULAR LENS 03/05/2024 10:30 AM EDT Hem/Onc Treatment Hematology/Oncolo gy Treatment, [address] [place] [address] 03/12/2024 11:30 AM EDT Hem/Onc Treatment Hematology/Oncolo gy Treatment, [address], [place] [address] Krista, Chair 7 Hem Onc Scenery 200 [facility] [place], [place] [address] 03/19/2024 10:30 AM EDT Hem/Onc Treatment Hematology/Oncolo gy Treatment, [address] [place] [address] Park, Chair 4 Hem Onc Scenery [address] [place] [address] 03/26/2024 10:30 AM EST Hem/Onc Treatment Hematology/Oncolo gy Treatment, [address] [place] [address] Park, Chair 8 Hem Onc Scenery [address] [place] [address] 05/04/2024 9:45 AM EST Office Visit Dermatology [facility] [address] [place] [address] Marshall Henson MD [address] [facility] [place] [address] 06/18/2024 11:30 AM EST Office Visit Urology, [facility] [address] [place] [address] Ramesh Phan MD [address] [place] [address] 06/22/2024 10:40 AM EST Office Visit Family Practice [facility] [address] [place] [address] Theresa Johnson MD [address] [facility] [place] [address] 07/25/2024 11:00 AM EST Office Visit Neurology Nathan [address] [place] [address] Maksim Wright MD [address] [facility] [place] [address] Scheduled Procedures Name [...] this encounter Medical Devices Implanted Type Area Mobile Development Manager Device Identifier Shelf Expiration Date Model / Serial / Lot Port Powerflow 9.6fr - [id number] Implanted:Qty : 1 on 03/15/2023 at [facility] CR BARD : PERIPHERAL VASCULAR [id number] 10/21/2023 [id number] / / [id number] Power Port 8fr Sngl Lumen Plas - [id number] Implanted:Qty : 1 on 03/15/2023 at [facility] CR BARD : PERIPHERAL VASCULAR [id number] 03/22/2024 [id number] / / [id number] Lens Li61ao 13.00mm 18.00 - [id number] - [id number] Implanted:Qty : 1 on 02/02/2024 by Andre Swartz MD at [facility] Right: Eye [employer]OM[employer] 08/20/2028 [id number] / [id number] documented as of this encounter Advance Directives Documents on File Type Date Recorded 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 No Care Teams Lead Python Developer Relationship Specialty Start Date End Date Theresa Johnson MD 200 [place] [address] PCP - General Family Medicine 12/19/23 documented as of this encounter
--- OUTSIDE RECORDS SUMMARY | 2024-06-23 06:18 | External Medical Summary | Summary of Care ---
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 [H25.811] Procedures REMOVE CATARACT, INSERT LENS PROSTH RIGHT EXTRACAPSULAR CATARACT REMOVAL WITH INTRAOCULAR LENS Andre Swartz MD [address] [place] [address] Or [facility] [address] [facility] [place] [address] Referral ID Status Reason Start Date Expiration Date Visits Re quested Visits Authorized [id number] Encounter Details Date Type Department Care Team (Latest Contact Info) Description 02/02/2024 8:44 AM EDT - 02/02/2024 11:23 AM EDT Hospital Encounter OR [facility], Operating Room [facility] [address] [facility] [place] [address] Andre Swartz MD [address] [place] [address] Discharge Disposition: Home - Self Care Allergies Active Allergy Reactions Criticality Noted Date Comments Benzalkonium Chloride 02/21/2015 Merthiolate "the orange kind" Caused a rash Milk (Cow) Diarrhea 02/05/2015 documented as of this encounter (statuses as of 02/02/2024) Medications Medication Sig Dispensed Refills Start Date End Date Status ALEVE 220 MG PO CAPS as needed Active Fluticasone Propionate 50 MCG/ACT Nasal Suspension Administer 1 [place] into nostril in the morning. Active FIBER [...] as of this encounter (statuses as of 02/02/2024) Active Problems Problem Noted Date Diagnosed Date [...] as of this encounter (statuses as of 02/02/2024) Resolved Problems Problem Noted Date Diagnosed Date Resolved Date Myasthenia gravis with exacerbation 12/14/2022 12/19/2023 Nonallopathic lesion of abdo men and other sites, not elsewhere classified 11/22/2003 06/30/19 12 documented as of this encounter (statuses as of 02/02/2024) Immunizations Name Administration Dates Next Due COVID-19 [...] Sign Reading Time Taken Comments Blood Pressure 110/61 02/02/2024 10:59 AM EDT Pulse 78 02/02/2024 10:59 AM EDT Temperature 36.6 C (97.9 F) 02/02/2024 10:44 AM E DT Respiratory Rate 14 02/02/2024 10:59 AM EDT Oxygen Saturation 97% 02/02/2024 10:59 AM EDT Inhaled Oxygen Concentration - - Weight 90.7 kg (200 lb) 02/02/2024 9:11 AM EDT Height 170.2 cm (5' 7.01") 02/02/2024 9:11 AM ED T Body Mass Index 31.32 02/02/2024 9:11 AM EDT documented in this encounter Discharge Instructions * Discharge Instr - AVS* Andre Swartz MD - 01/24/2024 8:19 AM EDT Discharge Date: 02/02/24 You may call Doctor Maxime at during [...] school: N/A Follow Up - Return appointment(s): 02/03/24 @3:[address] Keith Faye office See your medical concierge in 1day(s). SPECIAL INSTRUCTIONS Remove eye patch [...] DO NOT HESITATE TO CALL US AT [phone] AT ANY TIME I, Andre Swartz MD personally performed the services described in this documentation. All medical record entries made by the scribe were at my direction and in my presence. I have reviewed the chart and agree that the record reflects my personal performance and is accurate and complete. Andre ding MD. 02/02/2024. 10:42 AM. 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 Discharge instructions were given to the patient. Note has been documented by Gladis Hayes on 02/02/2024 documented in this encounter H&P Notes * Andre Swartz MD - 02/02/2024 7:36 AM EDT Images from the original note were not included. Office Visit 01/16/2024 Family Practice [facility] Miriam Marx PA-C Family Medicine Age-related cataract of both eyes, unspecified age-related cataract type +4 more Dx pre-op exam; Referred by Self Reason for Visit Progress Notes Miriam Marx PA-C (Physician Release Of Information Specialist - Certified) Family Medicine Expand All Collapse All Subjective: Giorgio Sosa is a 74 year old male. Presents at the request of Dr Swarzt for medical clearance for cataract removal. PHM: [...] Propionate 50 MCG/ACT Nasal Suspension Administer 1 [place] into nostril in the morning. FIBER ADULT [...] performed by Anjelica Lucas DO at ENDOSCOPY [facility] COLONOSCOPY, DIAGNOSTIC (RECTUM) 05/26/2020 adenomatous polyp, repeat 5 yrs / COLONOSCOPY FLEXIBLE PROXIMAL DIAGNOSTIC performed by Anjelica Luacs DO at ENDOSCOPY [facility] COLONOSCOPY, GI REFERRAL OP 2004 wnl-repeat 10 yrs COLORECTAL CANCER SCREEN;W/FLE 10/1998 wnl DENTAL SURGERY PROCEDURE NEC Dental Surgery Procedure IR APHERESIS ACCESS 03/15/2023 NEEDLE/PUNCH BIOPSY OF PROSTATE 04/21/2015 Prostate,Needle/Punch Biopsy REMOV ELSIE HOMERO JAZMINE ACC DEV,WITH N/A 01/06/2024 REMOVAL OF TUNNELED CENTRAL VENOUS ACCESS DEVICE WITH PORT performed by Osvaldo Aden MD at OR [facility] REMOVE TONSILS & ADENOIDS, AGE 12+ [...] forwarded to Dr Swartz. Miriam Marx PA-C Other Notes All notes Nursing Note from [...] has been documented by Gladis Hayes on 02/02/2024 * Andre Swartz MD - 02/02/2024 7:36 AM EDT HISTORY & PHYSICAL INTERVAL NOTE [facility] [address] [place] [address] History and Physical Update: Name: Giorgio Sosa Location: Room/bed info not found Date: 02/02/2024 Time: 7:36 AM DATE OF HISTORY AND PHYSICAL: 01/16/24 BP: 137 mmHg/59 mmHg (02/02/24910) Pulse: 80 (02/02/24910) Resp: 18 (02/02/24910) Temp: 36.67 C (02/02/24910) Temp Summary: Temp Min: 36.7 C (98 F) Max: 36.7 C (98 F) SpO2: 100 % (02/02/24910) O2 flow rate: Supplemental O2 Delivery: Room Air, None (02/02/24 0911) Does patient take a beta eliane? No Did patient stop anticoagulants? No Heart Exam: regular rate and rhythm Lung Exam: clear to auscultation bilaterally Other Pertinent Physical Exam: none I have reviewed the H&P previously performed and examined the patient today. There are no new findings noted. documented in this encounter Nursing Notes * Sal Carter RN - 02/02/2024 10:50 AM EDT Patient transferred to pacu 2 status post right cataract removal and lens placement. No drainage noted. Patient awake. Denies pain and nausea. Respirations are even and unlabored on room air. Abdomensoft and non distended. Vital signs stable. * Annmarie Manzanares RN - 02/02/2024 9:14 AM EDT Surgical consent verified with patient. Patient agrees with listed procedure and verified signature. documented in this encounter OR Notes * OR Surgeon - Andre Swartz MD - 02/02/2024 10:47 AM EDT [facility] [address] [place] [address] OPERATIVE REPORT Name: Giorgio Sosa Date: 02/02/2024 Time: 10:47 AM Location: OR [facility] Service: Ophthalmology Date of Operation: 02/02/2024 Pre-op Diagnosis: Visually significant combined cataract, right eye Post-op Diagnosis: Same Operative Procedure: Phacoemulsification with posterior chamber intraocular lens implantation, right eye (04625 Standard Cataract) Surgeon: Andre Swartz MD Assistants: None Anesthesia: topical Implant/Graft: B&L: 18.0 [id number]; SN: [id number] Complications: none Drains: none Urine Output: minimal [...] has been documented by Gladis Hayes on 02/02/2024 documented in this encounter Plan of Treatment Upcoming Encounters Date Type Department Care Team (Late st Contact Info) Description 02/07/2024 10:00 AM EDT Telemedicine Neurology [address] [place] [phone] Nathan, Pharmacist Neurology 100 [facility] [place] [address] 02/16/2024 9:21 AM EDT Hospital Encounter [facility], Operating Room O[facility] [address] [place] [address] Andre Swartz MD [address] [address] 02/16/2024 9:21 AM EDT - 02/16/2024 9:56 AM EDT Surgery OR OSS, Operating Room OSS 132 [facility] [place] [phone] Andre Swartz MD [address] [address] LEFT EXTRACAPSULAR CATARACT REMOVAL WITH INTRAOCULAR LENS 05/04/2024 9:45 AM EST Office Visit Dermatology [facility] [address] [place] [address] Marshall Henson MD [address] [place] [address] 06/18/2024 11:30 AM EST Office Visit Urology, [facility] [address] [facility] [place] [address] Ramesh Phan MD [address] [place] [address] 06/22/2024 10:40 AM EST Office Visit Family Practice [facility] [address] [place] [address] Theresa Johnson MD [address] [place] [address] 07/25/2024 11:00 AM EST Office Visit Neurology [address] [place] [phone] Maksim Wright MD [address] [facility] [place] [id number] Scheduled Procedures Name Priority Associated Diagnoses Date/Ti me EXTRACAPSULAR CATARACT REMOVAL WITH INTRAOCULAR LENS Combined forms of age-related cataract of right eye 02/02/2024 10:01 AM EDT EXTRACAPSULAR CATARACT REMOVAL WITH INTRAOCULAR LENS Combined [...] this encounter Medical Devices Implanted Type Area Boot And Saddle Repair Person Device Identifier Shelf Expiration Date Model / Serial / Lot Port Powerflow 9.6fr - [id number] Implanted:Qty : 1 on 03/15/2023 at [facility] : PERIPHERAL VASCULAR [id number] 10/21/2023 [id number] / / [id number] Power Port 8fr Sngl Lumen Plas - [id number] Implanted:Qty : 1 on 03/15/2023 at [facility] CR [employer] : PERIPHERAL VASCULAR [id number] 03/22/2024 [id number] / / [id number] Lens Li61ao 13.00mm 18.00 - [id number] - [id number] Implanted:Qty : 1 on 02/02/2024 by Andre Swartz MD at [facility] Right: Eye [employer]USCH [employer] LOMB 08/20/2028 [id number] / [id number] / [id number] documented as of this encounter Administered Medications Inactive Administered Medications - up to 3 most recent administrations Medication Order MAR Action Action Date Dose Rate Site Diclofenac Sodium (Voltaren) 0.1 % ophthalmic solution 1 Drop 1 Drop, Right eye, Q5 MINUTES, First dose on Ambar 02/02/24 at 0945, Last dose on Tue02/02/24 at 0955, For 3 doses, PRE-OP: One drop to right eye every 5 minutes for 3 doses, Pre-Op Given 02/02/2024 9:29 AM EDT 1 Drop Given 02/02/2024 9:24 AM EDT 1 Drop Given 02/02/2024 9:19 AM EDT 1 Drop isolyte-S pH 7.4 infusion Intravenous, at 100 mL/hr, Plasma-LYTE 148, isolyte-S, and isolyte-S pH 7.4 are considered equivalent - including for MAR barcode scanning., CONTINUOUS, Starting on Tue02/02/24 at 0945, Until Tue02/02/24 at 1523, Pre-Op New Bag 02/02/2024 9:24 AM EDT 100 mL/hr moxifloxacin (Vigamox) 0.5 % ophthalmic solution 1 Drop 1 Drop, Right eye, Q5 MINUTES, First dose on Tue02/02/24 at 0945, Last dose on Tue02/02/24 at 0955, For 3 doses, PRE-OP: One drop to right eye every 5 minutes for 3 doses, Pre-Op Given 02/02/2024 9:29 AM EDT 1 Drop Given 02/02/2024 9:24 AM EDT 1 Drop Given 02/02/2024 9:19 AM EDT 1 Drop tropicamide 1%-cyclopentolate 1%-phenylephrine 2.5% ophthalmic solution 1 Drop 1 Drop, Right eye, Q5 MINUTES, First dose on Ambar 02/02/24 at 0945, Last dose on Ambar 02/02/24 at 0955, For 3 doses, Pre-Op Given 02/02/2024 9:29 AM EDT 1 Drop Given 02/02/2024 9:24 AM EDT 1 Drop Given 02/02/2024 9:19 AM EDT 1 Drop documented in this encounter Active and Recently Administered Medications Times are shown in EDT. Scheduled Medication Order 01/31/2024 02/01/2024 02/02/2024 Diclofenac Sodium (Voltaren) 0.1 % ophthalmic solution 1 Drop (COMPLETED) 1 Drop, Right eye, Q5 MINUTES, First dose on Ambar 02/02/24 at 0945, Last dose on Ambar 02/02/24 at 0955, For 3 doses, PRE-OP: One drop to right eye every 5 minutes for 3 doses, Pre-Op 0919 (Given - Provid er: Annmarie Manzanares RN)09 (Given - Provider: Annmarie Manzanares RN)09 (Given - Provider: Annmarie Manzanares RN) moxifloxacin (Vigamox) 0.5 % ophthalmic solution 1 Drop (COMPLETED) 1 Drop, Right eye, Q5 MINUTES, First dose on Ambar 02/02/24 at 0945, Last dose on Ambar 02/02/24 at 0955, For 3 doses, PRE-OP: One drop to right eye every 5 minutes for 3 doses, Pre-Op 0919 (Given - Provid er: Annmarie Manzanares RN)09 (Given - Provider: Annmarie Manzanares RN)0929 (Given - Provider: Annmarie Manzanares RN) Povidone-Iodine (Betadine) 5 % 2 mL syringe ophthalmic solution 1 Drop 1 Drop, Right eye, ONCE, On Ambar 02/02/24 at 0945, For 1 dose, Pre-Op 0945 (Due) tropicamide 1%-cyclopentolate 1%-phenylephrine 2.5% ophthalmic solution 1 Drop (COMPLETED) 1 Drop, Right eye, Q5 MINUTES, First dose on Ambar 02/02/24 at 0945, Last dose on Ambar 02/02/24 at 0955, For 3 doses, Pre-Op 0919 (Given - Provid er: Annmarie Manzanares RN)09 (Given - Provider: Annmarie Manzanares RN)09 (Given - Provider: Annmarie Manzanares RN) Continuous Medication Order 01/31/2024 02/01/2024 02/02/2024 isolyte-S pH 7.4 infusion Intravenous, at 100 mL/hr, Plasma-LYTE 148, isolyte-S, and isolyte-S pH 7.4 are considered equivalent - including for MAR barcode scanning., CONTINUOUS, Starting on Ambar 02/02/24 at 0945, Until Ambar 02/02/24 at 1523, Pre-Op 09 (New Bag - Prov ider: Annmarie Manzanares RN) PRN Medication Order 01/31/2024 02/01/2024 02/02/2024 balanced salt solution (Bss) ophthalmic solution (CANCELED) ONCE PRN INTRA PROCEDURE, Starting on Ambar 02/02/24 at 1032, Until Ambar 02/02/24 at 1040, Intra-Op 103 (Given - Provid er: Andre Swartz MD - Comment: qs) DUOVISC inj KIT (CANCELED) ONCE PRN INTRA PROCEDURE, Starting on Ambar 02/02/24 at 1032, Until Ambar 02/02/24 at 1040, Intra-Op 103 (Given - Provid er: Andre Swartz MD - Comment: qs) EPINEPHrine 0.1 mg, lidocaine 1 % 0.9 mL inj (CANCELED) ONCE PRN INTRA PROCEDURE, Starting on Ambar 02/02/24 at 1032, Until Ambar 02/02/24 at 1040, Intra-Op 1032 (Given - Provid er: Andre Swartz MD - Comment: qs) hydroxypropyl methylcellulose ([place]) 2 % intraocular inj (CANCELED) ONCE PRN INTRA PROCEDURE, Starting on Ambar 02/02/24 at 1033, Until Ambar 02/02/24 at 1040, Intra-Op 1033 (Given - Provid er: Andre Swartz MD - Comment: qs) Lidocaine 1 % (PF) inj (CANCELED) ONCE PRN INTRA PROCEDURE, Starting on Ambar 02/02/24 at 1033, Until Ambar 02/02/24 at 1040, Intra-Op 1033 (Given - Provid er: Andre Swartz MD - Comment: qs) Moxifloxacin intracameral inj (CANCELED) ONCE PRN INTRA PROCEDURE, Starting on Ambar 02/02/24 at 1033, Until Ambar 02/02/24 at 1040, Intra-Op 1033 (Given - Provid er: Andre Swartz MD - Comment: qs) prednisoLONE Acetate (Pred Forte) 1 % ophthalmic suspension (CANCELED) ONCE PRN INTRA PROCEDURE, Starting on Ambar 02/02/24 at 1033, Until Ambar 02/02/24 at 1040, Intra-Op 1033 (Given - Provid er: Luzma Snow RN) Tetracaine (Pontocaine) 0.5 % ophthalmic solution (CANCELED) ONCE PRN INTRA PROCEDURE, Starting on Ambar 02/02/24 at 1033, Until Ambar 02/02/24 at 1040, Intra-Op 1033 (Given - Provid er: Luzma Snow RN) documented in this encounter Advance Directives Documents on File Type Date Recorded Patient Gas Regulator Repairer Expl anation Power of Ballet Dancer 06/20/2018 POWER OF A TTORNEY POA: EDEL- [...] Power of Attor ephraim? No Care Teams Principal Technical Specialist Relationship Specialty Start Date End Date Theresa Johnson MD [address] [place] [address] PCP - General Family Medicine 12/19/23 documented as of this encounter
--- OUTSIDE RECORDS SUMMARY | 2024-06-23 06:18 | External Medical Summary | Summary of Care ---
Author Name Unknown Organization [facility] Address [address] [place] [address] Phone [phone] Care Team Providers Care Fluxer Name Role Phone Theresa Johnson MD Primary Care Provider [phone] Reason for Visit * Reason Onset Date Comments Information 02/01/2024 Encounter Details Date Type Department Care Team (Late st Contact Info) Description 02/01/2024 Telephone Neurology, [place] [address] [place], [place] [id number] Maksim Wright MD [address] [place] [address] Information Allergies Active Allergy Reactions Criticality Noted Date Comments Benzalkonium Chloride 02/21/2015 Merthiolate "the orange kind" Caused a rash Milk (Cow) Diarrhea 02/05/2015 documented as of this encounter (statuses as of 02/07/2024) Medications Medication Sig Dispensed Refills Start Date End Date Status ALEVE 220 MG PO CAPS as needed Active Fluticasone Propionate 50 MCG/ACT Nasal Suspension Administer 1 [place] into nostril in the morning. Active FIBER [...] Miscellaneous Notes * Addendum Note - Brad Tanner RPh - 02/07/2024 10:28 AM EDTAddended by: BRAD TANNER on: 02/07/2024 10:28 AM Modules accepted: Orders * Telephone Encounter - Brad Tanner RPh - 02/07/2024 10:26 AM EDT Received message from Babita Olvera DNP requesting that patient's Vyvgart is re-dosed on day 53 to prevent worsening of symptoms. Placed updated SCP. * Telephone Encounter - Vanessa Sneed LPN - 02/01/2024 2:34 PM EDT Patient was in today for Vyvgart. Under episodes says managed by [facility] and to not schedule future appts. Please advise or let us know when patient needs scheduled. documented in this encounter Plan of Treatment Upcoming Encounters Date Type Department Care Team (Late st Contact Info) Description 02/14/2024 10:00 AM EDT Telemedicine Neurology [address] [place] [phone] Nathan Pharmacist Neurology [address] [facility] [place] [address] 02/16/2024 9:21 AM EDT Hospital Encounter [facility] [phone] Andre Swartz MD [address] [address] 02/16/2024 9:21 AM EDT - 02/16/2024 9:56 AM EDT Surgery OR OSS, Operating Room [facility] [address] [facility] [phone] Andre Swartz MD [address] [address] LEFT EXTRACAPSULAR CATARACT REMOVAL WITH INTRAOCULAR LENS 05/04/2024 9:45 AM EST Office Visit Dermatology [facility] [address] [place] [address] Marshall Henson MD [address] [place], [place] [address] 06/18/2024 11:30 AM EST Office Visit Urology, [facility] 132 [place] [address] Ramesh Phan MD [address] [place] [address] 06/22/2024 10:40 AM EST Office Visit Family Practice [facility] [address] [place] [address] Theresa Johnson MD [address] [place] [address] 07/25/2024 11:00 AM EST Office Visit Neurology [address] [place] [phone] Maksim Wright MD [address] [facility] [place] [id number] Scheduled Procedures Name Priority Associated Diagnoses Date/Ti [...] this encounter Medical Devices Implanted Type Area Bead Inspector Device Identifier Shelf Expiration Date Model / Serial / Lot Port Powerflow 9.6fr - [id number] Implanted:Qty : 1 on 03/15/2023 at [facility] CR BARD : PERIPHERAL VASCULAR [id number] 10/21/2023 [id number] / / [id number] Power Port 8fr Sngl Lumen Plas - [id number] Implanted:Qty : 1 on 03/15/2023 at [facility] CR BARD : PERIPHERAL VASCULAR [id number] 03/22/2024 [id number] / / [id number] Lens Li61ao 13.00mm 18.00 - [id number] - [id number] Implanted:Qty : 1 on 02/02/2024 by Andre Swartz MD at [facility] Right: Eye BAUSCH & LOMB 08/20/2028 [id number] / [id number] / [id number] documented as of this encounter Visit Diagnoses Diagnosis Myasthenia gravis (HCC)- Primary Myasthenia gravis without exacerbation 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 eye Other and combined forms of senile cataract documented in this encounter Advance Directives Documents on File Type Date Recorded Patient Public Health Staff Nurse Expl anation Power of Blow Molder 06/20/2018 POWER OF A TTORNEY POA: EDEL- [...] Power of Attor ephraim? No Care Teams Fluxer Relationship Specialty Start Date End Date Theresa Johnson MD [address] [place] [address] PCP - General Family Medicine 12/19/23 documented as of this encounter
--- OUTSIDE RECORDS SUMMARY | 2024-06-23 06:18 | External Medical Summary | Summary of Care ---
Author Name Unknown Organization [facility] Address [address] [place] [address] Phone [phone] Care Team Providers Care Reed Or Wind Instrument Repairer Name Role Phone Theresa Johnson MD Primary Care Provider [phone] Encounter Details Date Type Department Care Team (Late st Contact Info) Description 02/07/2024 Telephone Hematology/Oncology Treatment, [place] [address] [place] [address] Maksim Wright MD [address] [place] [address] Allergies Active Allergy Reactions Criticality Noted Date Comments Benzalkonium Chloride 02/21/2015 Merthiolate "the orange kind" Caused a rash Milk (Cow) Diarrhea 02/05/2015 documented as of this encounter (statuses as of 02/08/2024) Medications Medication Sig Dispensed Refills Start Date End Date Status ALEVE 220 MG PO CAPS as needed Active Fluticasone Propionate 50 MCG/ACT Nasal Suspension Administer 1 [place] into nostril in the morning. Active FIBER [...] (53 days from start of previous cycle)" Virgie plan and auth both in place. Scheduling: [...] [place] [phone] Nathan, Pharmacist Neurology [address] [place] [address] [place] [address] 02/16/2024 9:21 AM EDT Hospital Encounter OR [facility], Operating Room [facility] [address] [place] [phone] Andre Swartz MD [address] [place] [address] 02/16/2024 9:21 AM EDT - 02/16/2024 9:56 AM EDT Surgery OR [facility], Operating Room [facility] [address] [place] [phone] Andre Swartz MD [address] [place] [address] LEFT EXTRACAPSULAR CATARACT REMOVAL WITH INTRAOCULAR LENS 03/05/2024 10:30 AM EDT Hem/Onc Treatment Hematology/Oncolo gy Treatment, [address], [place] [address] 03/12/2024 11:30 AM EDT Hem/Onc Treatment Hematology/Oncolo gy Treatment, [address], [place] [address] Krista, Chair 7 Hem Onc Scenery [address] [place] [address] [place], [place] [address] 03/19/2024 10:30 AM EDT Hem/Onc Treatment Hematology/Oncolo gy Treatment, [address], [place] [address] Krista, Chair 4 Hem Onc Scenery [address] [place] [address] [place], [place] [address] 03/26/2024 10:30 AM EST Hem/Onc Treatment Hematology/Oncolo gy Treatment, [address], [place] [address] Krista, Chair 8 Hem Onc Scenery 200 [facility] [place], [place] [address] 05/04/2024 9:45 AM EST Office Visit Dermatology [facility] [address] [place] [address] Marshall Henson MD [address] [place] [address] 06/18/2024 11:30 AM EST Office Visit Urology, [facility] [address] [facility] [place] [address] Ramesh Phan MD [address] [place] [address] 06/22/2024 10:40 AM EST Office Visit Family Practice [facility] [address] [place] [address] Theresa Johnson MD 200 [facility] [place] [address] 07/25/2024 11:00 AM EST Office Visit Neurology [address] [place] [address] Maksim Wright MD [address] [place] [facility] [place] [address] Scheduled Procedures Name Priority Associated Diagnoses [...] Additional history exists Zoster Vaccines Completed 03/21/2019, 0810/2018, 02/05/2015 Pneumococcal Vaccine: 65+ Years Completed 02/19/2020, [...] this encounter Medical Devices Implanted Type Area Event Specialist Food Demonstrator Device Identifier Shelf Expiration Date Model / Serial / Lot Port Powerflow 9.6fr - [id number] Implanted:Qty : 1 on 03/15/2023 at [facility] CR [facility]ARD : PERIPHERAL VASCULAR [id number] 10/21/2023 [id number] / / [id number] Power Port 8fr Sngl Lumen Plas - [id number] Implanted:Qty : 1 on 03/15/2023 at [facility] CR [employer]ARD : PERIPHERAL VASCULAR [id number] 03/22/2024 [id number] / / [id number] Lens Li61ao 13.00mm 18.00 - [id number] - [id number] Implanted:Qty : 1 on 02/02/2024 by Andre Swartz MD at [facility] Right: Eye [employer] 08/20/2028 [id number] / [id number] / [id number] documented as of this encounter Advance Directives Documents on File Type Date Recorded Patient Family And Marriage Counsellor Expl anation Power of Copy Director 06/20/2018 POWER OF A TTORNEY POA: [...] Power of Attor ephraim? No Care Teams Reed Or Wind Instrument Repairer Relationship Specialty Start Date End Date Theresa Johnson MD [address] [place] [address] PCP - General Family Medicine 12/19/23 documented as of this encounter
--- OUTSIDE RECORDS SUMMARY | 2024-06-23 06:19 | External Medical Summary | Summary of Care ---
Author Name Unknown Organization [facility] Address [address] [place] [address] Phone [phone] Care Team Providers Care Gear Generator Set Up Operator Name Role Phone Theresa Johnson MD Primary Care Provider [phone] Reason for Visit * Reason Comments Dosage Adjustment Via Phone (anticoag Cl inic) Encounter Details Date Type Department Care Team (Late st Contact Info) Description 01/26/2024 7:15 AM EDT Pharmacy Neurology Nathan [address] [place] [phone] Nathan, Pharmacist Neurology [address] [place] [address] Myasthenia gravis (HCC)* Allergies Active Allergy Reactions Criticality Noted Date Comments Benzalkonium Chloride 02/21/2015 Merthiolate "the orange kind" Caused a rash Milk (Cow) Diarrhea 02/05/2015 documented as of this encounter (statuses as of 01/26/2024) Medications Medication Sig Dispensed Refills Start Date End Date Status ALEVE 220 MG PO CAPS as needed Active Fluticasone Propionate 50 MCG/ACT Nasal Suspension Administer 1 [place] into nostril in the morning. Active FIBER ADULT GUMMIES 2 g CHEW Take 2 Each by mouth daily. Active SUMAtriptan Succinate 100 MG Oral TabletIndications:M igraine without status migrainosus, not intractable, unspecified migraine type TAKE 1 TABLET AT ONSET OF MIGRAINE. MAY REPEAT IN 2 HOURS BUT NOT MORE. 10 Tab 3 02/05/2021 Active Triamcinolone Acetonide 0.5 % External CreamIndications:De rmatitis APPLY TO AFFECTED AREAS TWICE DAILY. 60 g 1 08/21/2021 Active Calcium-Vitamin D-Minerals 600-400 MG-UNIT Oral Tablet ChewableIndications [...] as of this encounter (statuses as of 01/26/2024) Active Problems Problem Noted Date Diagnosed Date [...] as of this encounter (statuses as of 01/26/2024) Resolved Problems Problem Noted Date Diagnosed Date Resolved Date Myasthenia gravis with exacerbation 12/14/2022 12/19/2023 Nonallopathic lesion of abdo men and other sites, not elsewhere classified 11/22/2003 06/30/19 12 documented as of this encounter (statuses as of 01/26/2024) Immunizations Name Administration Dates Next Due COVID-19 [...] Progress Notes * Anette Tanner RPh - 01/26/2024 10:51 AM EDT Images from the original note were not included. Patient had office visit with Babita on 01/25/24. Patient started current cycle on 01/12/24 - 53 days from 01/11 is 03/05/24. Will enter SCP for next cycle with MG-ADL call scheduled on 02/07/24 to avoid confusion with current cycle. Anette Tanner RPh Clinical Pharmacist, Neurology Medication Therapy Disease Management 01/26/2024 10:57 AM documented in this encounter Plan of Treatment Upcoming Encounters Date Type Department Care Team (Late st Contact Info) Description 01/26/2024 1:00 PM EDT Hem/Onc Treatment Hematology/Oncolo [address] [address] Krista, Chair 9 Hem Onc Scenery [address] [place] [address] [place] [address] 02/01/2024 12:30 PM EDT Hem/Onc Treatment [facility]ematology/Oncolo [facility] [place] [facility] [phone] Krista, Chair 2 Hem Onc Scenery 200 [facility] [place] [address] 02/02/2024 9:44 AM EDT Hospital Encounter [facility], Operating Room [facility] [address] [place] [phone] Andre Swartz MD [address] [place] [address] 02/02/2024 9:44 AM EDT - 02/02/2024 10:19 AM EDT Surgery OR [facility], Operating Room [facility] [address] [place] [address] Andre Swartz MD [address] [place] [address] RIGHT EXTRACAPSULAR CATARACT REMOVAL WITH INTRAOCULAR LENS 02/07/2024 10:00 AM EDT Telemedicine Neurology [address] [place] [address] [place] [address] Nathan, Pharmacist Neurology [address] [place] [address] [place] [address] 02/16/2024 9:23 AM EDT Hospital Encounter [facility], Operating Room [facility] [address] [place] [phone] Andre Swartz MD [address] [place] [address] 02/16/2024 9:23 AM EDT - 02/16/2024 9:58 AM EDT Surgery OR [facility], Operating Room [facility] [address] [place] [address] Andre Swartz MD [address] [place] [address] LEFT EXTRACAPSULAR CATARACT REMOVAL WITH INTRAOCULAR LENS 05/04/2024 9:45 AM EST Office Visit Dermatology Iam Velas[facility] [place] [address] [place] [address] Marshall Henson MD [address] [place] [address] 06/18/2024 11:30 AM EST Office Visit Urology, [facility] [address] [place] [address] Ramesh Phan MD [address] [place] [address] 06/22/2024 10:40 AM EST Office Visit Family Practice [facility] [address] [place] [address] Theresa Johnson MD 200 [facility] [place], [place] [address] 07/25/2024 11:00 AM EST Office Visit Neurology Nathan [address] [place] [address] Makism Wright MD [address] [facility] [place] [address] Scheduled Procedures Name Priority Associated Diagnoses Date/Ti me EXTRACAPSULAR CATARACT REMOVAL WITH INTRAOCULAR LENS Combined forms of age-related cataract of right eye 02/02/2024 9:44 AM EDT EXTRACAPSULAR CATARACT REMOVAL WITH INTRAOCULAR LENS 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 eye 02/16/2024 9:23 AM EDT COLONOSCOPY FLEXIBLE PROXIMAL DIAGNOSTIC Recall [...] this encounter Medical Devices Implanted Type Area Drama Critic Device Identifier Shelf Expiration Date Model / Serial / Lot Port Powerflow 9.6fr - [id number] Implanted:Qty: 1 on 03/15/2023 at [facility] CR [facility]ARD : PERIPHERAL VASCULAR [id number] 10/21/2023 [id number] / / [id number] Power Port 8fr Sngl Lumen Plas - [id number] Implanted:Qty: 1 on 03/15/2023 at [facility] CR BARD : PERIPHERAL VASCULAR [id number] 03/22/2024 [id number] / / [id number] documented as of this encounter Visit Diagnoses Diagnosis Myasthenia gravis (HCC)- Primary Myasthenia gravis without exacerbation Combined forms of age-related cataract of right eye Other and combined forms of senile cataract 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 eye Other and combined forms of senile cataract documented in this encounter Advance Directives Documents on File Type Date Recorded Patient Pl Sql Developer Expl anation Power of Public Works Supervisor 06/20/2018 POWER OF A TTORNEY POA: EDEL- DAUGHTER, ROBERT-SON Care Teams Gear Generator Set Up Operator Relationship Specialty Start Date End Date Theresa Johnson MD 200 [facility] [place] [address] PCP - General Family Medicine 12/19/23 documented as of this encounter
--- OUTSIDE RECORDS SUMMARY | 2024-06-23 06:19 | External Medical Summary | Summary of Care ---
Author Name Unknown Organization [facility] Address [address] [place] [address] Phone [phone] Care Team Providers Care Business Analytics Specialist Name Role Phone Theresa Johnson MD Primary Care Provider [phone] Encounter Details Date Type Department Care Team (Late st Contact Info) Description 01/25/2024 4:30 PM EDT Telemedicine Neurology [address] [place] [address] Maksim Wright MD [address] [place] [address] Myasthenia gravis (HCC)*; Other osteoporosis with current pathological fracture, initial encounter; Current chronic use of systemic steroids Allergies Active Allergy Reactions Criticality Noted Date Comments Benzalkonium Chloride 02/21/2015 Merthiolate "the orange kind" Caused a rash Milk (Cow) Diarrhea 02/05/2015 documented as of this encounter (statuses as of 02/01/2024) Medications Medication Sig Dispensed Refills Start Date End Date Status ALEVE 220 MG PO CAPS as needed Active Fluticasone Propionate 50 MCG/ACT Nasal Suspension Administer 1 [place] into nostril in the morning. Active FIBER [...] other day 45 Tablet 5 01/25/2024 Active predniSONE 10 MG Oral Tablet (Deltasone)Indica tions:Vitamin D deficiency, unspecified,Diplo jamie TAKE 1 TABLET BY MOUTH DAILY 30 Tablet 2 10/12/2023 01/25/20 24 Discontinued documented as of this encounter (statuses as of 02/01/2024) Active Problems Problem Noted Date Diagnosed Date [...] as of this encounter (statuses as of 02/01/2024) Resolved Problems Problem Noted Date Diagnosed Date Resolved Date Myasthenia gravis with exacerbation 12/14/2022 12/19/2023 Nonallopathic lesion of abdo men and other sites, not elsewhere classified 11/22/2003 06/30/19 12 documented as of this encounter (statuses as of 02/01/2024) Immunizations Name Administration Dates Next Due COVID-19 [...] as of this encounter Progress Notes * Babita Olvera, LUCY - 01/25/2024 4:21 PM EDT Patient location: HOME. I was in a hospital or clinic location. After connecting through [email or web address],patient was verified with two unique identifiers. Patient (or authorized legal business office representative) was then informed that this was a Telemedicine visit and being conducted confidentially over secure lines. Methods to assure confidentiality were taken. Patient acknowledged consent and understanding of pr ivacy and security of the Telemedicine visit. The patient agreed to participate. 01/25/2024 Referring Provider: Chief Complaint: Myasthenia gravis History of Present Illness (HPI): Pt is a 74 year male with history of myasthenia gravis diagnosed in 2021 based on +AchR AB. Doing much better. After the most recent infusion started feeling much better. Still persists with diplopia. Better at getting out of a chair. Can make it to day 55 and then he crashes. No bulbar sx.Breathing is good. Legs and hips are the major sx for him. Would like to start next round at day 55. He would also like to lower his prednisone if possible but only if he can do the vyvgart at day 55. Current medications: Prednisone 10 mg/d Vyvgart Laboratory testing: Antibody - AchR Ab 9.4 CT of chest 06/06/23 IMPRESSION 1. No evidence of thymoma or other suspicious finding involving the chest. 2. Trace right pleural effusion. Review of Systems (ROS): As per HPI otherwise all 14 systems reviewed and are negative. Past Medical History and Problem List Patient Active Problem List Diagnosis Family history of malignant neoplasm of prostate Family history of other cardiovascular diseases Allergic rhinitis due to pollen ADVANCE DIRECTIVE INFORMATION Headache FH: prostate cancer BPH with obstruction/lower urinary tract symptoms Prostate cancer (HCC) History of basal cell cancer Ptosis of right eyelid Elevated prostate specific antigen (PSA) Double vision Myasthenia gravis (HCC) Facial weakness Diplopia Family History Non contributory @SOCHXR@ Current Outpatient Medications Medication Sig Dispense Refill ALEVE 220 MG PO CAPS as needed Fluticasone Propionate 50 MCG/ACT Nasal Suspension Administer 1 [place] into nostril in the morning. FIBER ADULT GUMMIES 2 g CHEW Take 2 Each by mouth daily. SUMAtriptan Succinate 100 MG Oral Tablet TAKE 1 TABLET AT ONSET OF MIGRAINE. MAY REPEAT IN 2 HOURS BUT NOT MORE. 10 Tab 3 Triamcinolone Acetonide 0.5 % External Cream APPLY TO AFFECTED AREAS TWICE DAILY. 60 g 1 Calcium-Vitamin D-Minerals 600-400 MG-UNIT [...] Caused a rash Milk [Milk (Cow)] Diarrhea Physical Exam: No exam Well appearing male Impression: Myasthenia gravis - doing well with vyvgart -wears off around day 54 - will plan to schedule it around day 53 to avoid worsening sx Plan: Continue vyvgart Lower prednisone to 10/5 Phone follow up in 1 month to see how he is doing - will consider lowering further if he is doing well Follow up in clinic in 4-6 months Babita Olvera, LUCY 01/25/2024 4:21 PM I have reviewed the advanced practitioner's documentation on the date of service referenced in note, and I agree with, and take responsibility for the plan of care. Maksim Wright MD documented in this encounter Plan of Treatment Upcoming Encounters Date Type Department Care Team (Late st Contact Info) Description 02/02/2024 9:44 AM EDT Hospital Encounter OR [facility], Operating Room [facility] 132 [facility] [place] [phone] Andre Swartz MD [address] [address] 02/02/2024 9:44 AM EDT - 02/02/2024 10:19 AM EDT Surgery OR [facility], Operating Room [facility] [address] [place] [phone] Andre Swartz MD [address] [address] RIGHT EXTRACAPSULAR CATARACT REMOVAL WITH INTRAOCULAR LENS 02/07/2024 10:00 AM EDT Telemedicine Neurology [address] [place] [phone] Nathan, Pharmacist Neurology [address] [place] [address] [place] [address] 02/16/2024 9:21 AM EDT Hospital Encounter OR [facility], Operating Room [facility] [address] [place] [phone] Andre Swartz MD [address] [place] [address] 02/16/2024 9:21 AM EDT - 02/16/2024 9:56 AM EDT Surgery OR [facility], Operating Room [facility] [address] [place] [phone] Andre Swartz MD [address] [address] LEFT EXTRACAPSULAR CATARACT REMOVAL WITH INTRAOCULAR LENS 05/04/2024 9:45 AM EST Office Visit Dermatology [facility] [address] [place] [address] Marshall Henson MD 200 [facility] [place] [address] 06/18/2024 11:30 AM EST Office Visit Urology, [facility] [address] [place] [address] Ramesh Phan MD [address] [place] [address] 06/22/2024 10:40 AM EST Office Visit Family Practice [facility] [address] [place] [address] Theresa Johnson MD [address] [place] [address] 07/25/2024 11:00 AM EST Office Visit Neurology [address] [place] [address] Maksim Wright MD 100 [facility] [place] [address] Scheduled Procedures Name [...] this encounter Medical Devices Implanted Type Area Warping Machine Operator Device Identifier Shelf Expiration Date Model / Serial / Lot Port Powerflow 9.6fr - [id number] Implanted:Qty: 1 on 03/15/2023 at [facility] CR BARD : PERIPHERAL VASCULAR [id number] 10/21/2023 [id number] / / [id number] Power Port 8fr Sngl Lumen Plas - [id number] Implanted:Qty: 1 on 03/15/2023 at [facility] CR BARD : PERIPHERAL VASCULAR [id number] 03/22/2024 [id number] / / [id number] documented as of this encounter Visit Diagnoses Diagnosis Myasthenia gravis (HCC)- Primary Myasthenia gravis without exacerbation Other osteoporosis with current pathological fracture, initial encounter Current chronic use of systemic steroids Combined forms of age-related cataract of right eye Other and combined forms of senile cataract 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 eye Other and combined forms of senile cataract documented in this encounter Advance Directives Documents on File Type Date Recorded Patient Mechanical Specialist Expl anation Power of Hl7 Developer 06/20/2018 POWER OF A TTORNEY POA: EDEL- DAUGHTER, ROBERT-SON Care Teams Business Analytics Specialist Relationship Specialty Start Date End Date Theresa Johnson MD 200 [facility] [place] [address] PCP - General Family Medicine 12/19/23 documented as of this encounter
--- OUTSIDE RECORDS SUMMARY | 2024-06-23 06:19 | External Medical Summary | Summary of Care ---
Author Name Unknown Organization [facility] Address [address] [place] [address] Phone [phone] Care Team Providers Care Automobile Mechanic Radiator Name Role Phone Theresa Johnson MD Primary Care Provider [phone] Reason for Visit * Reason Comments IV Therapy Vyvgart * Episode Based Medications (Routine) - Authorized Specialty Diagnoses / Procedures Referred By Contac t Referred To Contact Diagnoses Myasthenia gravis (HCC) Procedures [place] INJECTION, EFGARTIGIMOD EVANGELINA-FCAB, 2MG Maksim Wright MD [address] [place] [address] Anc Hem/Onc [address] [address] Referral ID Status Reason Start Date Expiration Date V isits Requested Visits Authorized [id number] Authorized 11/04/2023 11/03/2024 99 99 Encounter Details Date Type Department Care Team (Latest Contact Info) Description 01/26/2024 1:00 PM EDT Hem/Onc Treatment Hematology/Oncology Treatment, [address] [address] Krista, Chair 9 Hem On[address] [address] Myasthenia gravis (HCC)* Allergies Active Allergy Reactions Criticality Noted Date Comments Benzalkonium Chloride 02/21/2015 Merthiolate "the orange kind" Caused a rash Milk (Cow) Diarrhea 02/05/2015 documented as of this encounter (statuses as of 01/26/2024) Medications Medication Sig Dispensed Refills Start Date End Date Status ALEVE 220 MG PO CAPS as needed Active Fluticasone Propionate 50 MCG/ACT Nasal Suspension Administer 1 [place] into nostril in the morning. Active FIBER [...] Passive Smoke Exposure: Past Smokeless Tobacco: Never Tobacco Cessation:Counseling Given: Not Answered Comments:Mother smoked around as child no current passive [...] Sign Reading Time Taken Comments Blood Pressure 123/60 01/26/2024 1:20 PM EDT Pulse 85 01/26/2024 1:20 PM EDT Temperature 36.4 C (97.6 F) 01/26/2024 1:20 PM ED T Respiratory Rate 16 01/26/2024 1:20 PM EDT Oxygen Saturation 95% 01/26/2024 1:20 PM EDT Inhaled Oxygen Concentration - - Weight 91.7 kg (202 lb 3.2 oz) 01/26/2024 1:20 P M EDT Height - - Body Mass Index 31.66 01/16/2024 9:07 AM EDT documented in this encounter Nursing Notes * Vanessa Sneed LPN - 01/26/2024 3:22 PM EDT Patient did not want to stay for the 1 hour observation. Patient stated he had this before. * Vanessa Sneed LPN - 01/26/2024 1:21 PM EDT Patient arrived Chair 9 for IV therapy Vyvgart. Vital signs are stable. IV access successful at theright forearm vein. IV line flushed with ease; positive blood return; IV fluids connected and infusing. Call garcia within reach. Patient instructed on use of heat and massage functions where applicable. Patient shown how to operate the heat function of the chair and to alert nursing staff if the chair feels too warm. Patient instructed on the risk of potential rodriguez while using the heat function. 15:08 - Patient completed IV therapy. IV access discontinued; site cleaned and bandaged. Patient discharged in stable condition and will return on 02/08. documented in this encounter Plan of Treatment Upcoming Encounters Date Type Department Care Team (Late st Contact Info) Description 02/01/2024 12:30 PM EDT Hem/Onc Treatment Hematology/Oncolo gy Treatment, [place] [address] [place] [phone] Krista, Chair 2 Hem Onc Scen[facility] [address] [facility] [address] 02/02/2024 9:44 AM EDT Hospital Encounter OR OSS, Operating Room [facility] [address] [facility] [place] [phone] Andre Swartz MD [address] [place] [address] 02/02/2024 9:44 AM EDT - 02/02/2024 10:19 AM EDT Surgery OR [facility], Operating Room [facility] [address] [place] [phone] Andre Swartz MD [address] [place] [address] RIGHT EXTRACAPSULAR CATARACT REMOVAL WITH INTRAOCULAR LENS 02/07/2024 10:00 AM EDT Telemedicine [place]rology [place] [address] [place] [address] Neto, Pharmacist Neurology [address] [facility] [place], [place] [address] 02/16/2024 9:23 AM EDT Hospital Encounter OR [facility], Operating Room [facility] [address] [facility] [place] [phone] Andre Swartz MD [address] [facility] [address] [place] [address] 02/16/2024 9:23 AM EDT - 02/16/2024 9:58 AM EDT Surgery OR [facility], Operating Room [facility] [address] [facility] [place] [phone] Andre Swartz MD [address] [facility] 100 [place] [address] LEFT EXTRACAPSULAR CATARACT REMOVAL WITH INTRAOCULAR LENS 05/04/2024 9:45 AM EST Office Visit Dermatology [facility] [address] [place] [address] Marshall Henson MD [address] [place] [address] 06/18/2024 11:30 AM EST Office Visit Urology, [facility] [address] [facility] [place] [address] Ramesh Phan MD [address] [place] [address] 06/22/2024 10:40 AM EST Office Visit Family Practice [facility] [address] [place] [address] Theresa Johnson MD [address] [place] [address] 07/25/2024 11:00 AM EST Office Visit Neurology [address] [place] [address] Maksim Wright MD [address] [facility] [place] [address] Scheduled [...] this encounter Medical Devices Implanted Type Area Head Of Science Device Identifier Shelf Expiration Date Model / Serial / Lot Port Powerflow 9.6fr - [id number] Implanted:Qty: 1 on 03/15/2023 at [facility] CR [facility] : PERIPHERAL VASCULAR [id number] 10/21/2023 [id number] / / [id number] Power Port 8fr Sngl Lumen Plas - [id number] Implanted:Qty: 1 on 03/15/2023 at [facility] CR [employer] : PERIPHERAL VASCULAR [id number] 03/22/2024 [id number] / / [id number] documented as of this encounter Visit Diagnoses Diagnosis Myasthenia gravis (HCC)- Primary Myasthenia gravis without exacerbation Combined forms of age-related cataract of right eye Other and combined forms of senile cataract 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 eye Other and combined forms of senile cataract documented in this encounter Administered Medications Active Administered Medications - up to 3 most recent administrations Medication Order MAR Action Action Date Dose Rate Site diphenhydrAMINE (Benadryl) inj 50 mg 50 mg, IV Push, ONCE PRN Other, Hypersensitivity Reaction, Starting on Tue01/26/24 at 1247, Until Tue01/27/24 at 1246, For 24 hours EPINEPHrine 1 MG/ML inj 0.3 mg 0.3 mg, Intramuscular, ONCE PRN Other, Hypersensitivity Reaction or Anaphylaxis, Starting on Tue01/26/24 at 1247, Until Tue01/27/24 at 1246, For 24 hours hEParin 100 UNIT/ML Lock Flush inj 500 Units 500 Units (5 mL), IV Lock, PRN Other, IV Flush, Starting on Tue01/26/24 at 1247, Until Tue01/27/24 at 1246, For 24 hours, Do not flush if lock, PICC, or central line not in place; IV infusing or unable to flush. Hydrocortisone Sod Suc (PF) (Solu-Cortef) inj 100 mg 100 mg, IV Push, ONCE PRN Other, Hypersensitivity Reaction, Starting on Tue01/26/24 at 1247, Until Tue01/27/24 at 1246, For 24 hours NSS infusion Intravenous, at 50 mL/hr, PRN, Starting on Tue01/26/24 at 1400, Until Discontinued, Maintenance line Start Infusion 01/26/2024 1:05 PM EDT 50 mL/hr oxygen GAS Inhalation, OXYGEN, First dose on Tue01/26/24 at 1600, Until Discontinued, Device/Managed by: Low [...] Push, PRN Other, IV Flush, Starting on Tue01/26/24 at 1247, Until Tue01/27/24 at 1246, For 24 hours, Do not flush if lock, PICC, or central line not in place; IV infusing or unable to flush. Inactive Administered Medications - up to 3 most recent administrations Medication Order MAR Action Action Date Dose Rate Site Efgartigimod evangelina-fcab (Vyvgart) 800 mg in NSS 125 mL infusion 800 mg, IV Piggyback, ONCE, 1 dose, On Tue01/26/24 at 1400, In NSS Note: VOLUME TO BE INFUSED 125 ML Infuse over 1 hour via a 0.2 micron in-line filter; do not administer as IV push or bolus. Following administration, flush entire line with NS. Start Infusion 01/26/2024 2:01 PM EDT 800 mg 125 mL/hr documented in this encounter Advance Directives Documents on File Type Date Recorded Patient Piping Blocker Expl anation Power of Assembler Bonding 06/20/2018 POWER OF A TTORNEY POA: EDEL- DAUGHTER, ROBERT-SON Care Teams Automobile Mechanic Radiator Relationship Specialty Start Date End Date Theresa Johnson MD [address] [place] [address] PCP - General Family Medicine 12/19/23 documented as of this encounter
--- OUTSIDE RECORDS SUMMARY | 2024-06-23 06:19 | External Medical Summary | Summary of Care ---
Author Name Unknown Organization [facility] Address [address] [place] [address] Phone [phone] Care Team Providers Care Ground Nuclear Weapons Assembly Officer Name Role Phone Theresa Johnson MD Primary Care Provider [phone] Reason for Visit * Reason Onset Date Comments Appointment 01/09/2024 Encounter Details Date Type Department Care Team (Late st Contact Info) Description 01/09/2024 Telephone Neurology [address] [place] [address] [place] [address] Maksim Wright MD [address] [place] [address] Appointment Allergies Active Allergy Reactions Criticality Noted Date Comments Benzalkonium Chloride 02/21/2015 Merthiolate "the orange kind" Caused a rash Milk (Cow) Diarrhea 02/05/2015 documented as of this encounter (statuses as of 01/11/2024) Medications Medication Sig Dispensed Refills Start Date End Date Status ALEVE 220 MG PO CAPS as needed Active Fluticasone Propionate 50 MCG/ACT Nasal Suspension Administer 1 [place] into nostril in the morning. Active FIBER ADULT GUMMIES 2 g CHEW Take 2 Each by mouth daily. Active SUMAtriptan Succinate 100 MG Oral TabletIndications: Migraine without status migrainosus, not intractable, unspecified migraine type TAKE 1 TABLET AT ONSET OF MIGRAINE. MAY REPEAT IN 2 HOURS BUT NOT MORE. 10 Tab 3 02/05/2021 Active Triamcinolone Acetonide 0.5 % External CreamIndications:D ermatitis APPLY TO AFFECTED AREAS TWICE DAILY. 60 g 1 08/21/2021 Active Additional Information Patient not taking.Reported on 09/13/2023 Calcium-Vitamin D-Minerals 600-400 MG-UNIT Oral Tablet ChewableIndication s:Myasthenia gravis (HCC) Take 1 tablet in the morning daily 30 Tablet 5 06/08/2022 Active Tamsulosin HCl 0.4 MG Oral Capsule (Flomax)Indication s:BPH with obstruction/lower urinary tract symptoms Take 1 Capsule by mouth in the morning. 90 Capsule 3 03/16/2023 Active predniSONE 10 MG Oral Tablet (Deltasone)Indicat ions:Vitamin D deficiency, unspecified,Diplop ia TAKE 1 TABLET BY MOUTH DAILY 30 Tablet 2 10/12/2023 Active Additional Information Patient taking differently: 5 mg Oral Daily(AM), TAKE 1 TABLET BY MOUTH DAILY, Reported on 12/19/2023 Mirtazapine 15 MG Oral Tablet (Remeron)Indicatio ns:Adjustment [...] min after taking tablet 5 Tablet 11 12/19/2023 Discontinue d(Refill) documented as of this encounter (statuses as of 01/11/2024) Active Problems Problem Noted Date Diagnosed Date [...] as of this encounter (statuses as of 01/11/2024) Resolved Problems Problem Noted Date Diagnosed Date Resolved Date Myasthenia gravis with exacerbation 12/14/2022 12/19/2023 Nonallopathic lesion of abdo men and other sites, not elsewhere classified 11/22/2003 06/30/19 12 documented as of this encounter (statuses as of 01/11/2024) Immunizations Name Administration Dates Next Due COVID-19 mRNA, LNP-s, No Pre serve, 2-Dose Series (Moderna) 07/13/2020,06/13/2020 Pneumococcal Conjugate Vacc, 13 Valent (Prevnar) 04/21/2017 Pneumococcal Polysaccharide PPV23 (Pneumovax) 02/19/2020 Seasonal Influenza, PF, 6 M & above, IM , (FluLaval or Fluzone) 04/02/2022,02/18/2021,03/27/2019,03/27,03/01/2017 Seasonal Influenza, Quadriva lent, No Preserve, IM 05/11/2016 Seasonal Influenza, Split, I IV3, With Preserve, Inj 02/05/2015,05/10/2014,03/16/2013 Seasonal Influenza, Trivalen t, Adjuvanted, 65+ yrs 03/04/2020 TD - Tetanus/Diptheria (ADULT) 01/09/2002 TDAP [...] encounter Miscellaneous Notes * Telephone Encounter - Daniela Nuno CPhT - 01/11/2024 3:19 PM EDT Lvm requesting call back to schedule medication management phone call with [facility] Will follow up in 1 week if not scheduled sooner. * Telephone Encounter - Anette Tanner RPh - 01/11/2024 2:20 PM EDT Telemedicine visit not complete. This is for after completion of his next cycle around 02/08/24. * Telephone Encounter - Daniela Nuno CPhT - 01/10/2024 11:57 AM EDT Telemedicine Visit completed * Telephone Encounter - Anette Tanner RPh - 01/09/2024 10:50 AM EDT Neurology Pharmacist Appointment Request Department & Provider: Neurology [address] [[id number]] -- Pharmacist Neurology Nathan[[id number]] Patient to be scheduled for visit type: Telephonic Medicine Visit [[id number]] Reason for visit: Vyvgart MG-ADL due 02/08/24 Length of visit: 30 Time Frame: around 02/08/24 Please route this encounter back to Neuro Pharmacist Refill Pool/Class [p [id number]] if unable to schedule patient after 3 attempts. documented in this encounter Plan of Treatment Upcoming Encounters Date Type Department Care Team (Late st Contact Info) Description 01/12/2024 1:30 PM EDT Hem/Onc Treatment Hematology/Oncolog [address], [address] [phone] Krista, Chair 2 Hem Onc [address] [place] [address] 01/16/2024 9:00 AM EDT Office Visit Family Practice [facility] [place] [address] [place] [address] Miriam Marx PA-C [address] [facility] [place] [address] 01/18/2024 7:15 AM EDT Pharmacy Neurology [address] [place] [phone] Nathan, Pharmacist Neurology [address] [place] [address] [place] [address] 01/19/2024 1:00 PM EDT Hem/Onc Treatment Hematology/Oncolog y Treatment, [address] [place] [phone] Krista, Chair 11 Hem Onc [place] [address] [place] [address] 01/26/2024 1:00 PM EDT Hem/Onc Treatment Hematology/Oncolog y Treatment, [address] [place] [phone] Park, Chair 9 Hem Onc Scenery [address] [place] [address] 02/01/2024 12:30 PM EDT Hem/Onc Treatment Hematology/Oncolog y Treatment, [place] [address] [place] [phone] Park, Chair 2 Hem Onc Scenery [address] [place] [address] 02/02/2024 9:44 AM EDT Hospital Encounter OR [facility], Operating Room [facility] [address] [place], [place] [phone] Andre Swartz MD [address] [place] [address] 02/02/2024 9:44 AM EDT - 02/02/2024 10:19 AM EDT Surgery OR [facility], Operating Room [facility] [address] [place] [address] Andre Swartz MD [address] [place] [address] RIGHT EXTRACAPSULAR CATARACT REMOVAL WITH INTRAOCULAR LENS 02/16/2024 9:23 AM EDT Hospital Encounter OR [facility], Operating Room [facility] [address] [place], [place] [address] Andre Swartz MD [address] [place] [address] 02/16/2024 9:23 AM EDT - 02/16/2024 9:58 AM EDT Surgery OR [facility], Operating Room [facility] [address] [place], [place] [phone] Andre Swartz MD [address] [place] [address] LEFT EXTRACAPSULAR CATARACT REMOVAL WITH INTRAOCULAR LENS 05/04/2024 9:45 AM EST Office Visit Dermatology [facility] [address] [place] [address] Marshall Henson MD [address] [place] [address] 06/18/2024 11:30 AM EST Office Visit Urology, [facility] [address] [facility] [place] [place] [address] Ramesh Phan MD [address] [place] [address] 06/22/2024 10:40 AM EST Office Visit Family Practice [facility] [address] [place] [address] Theresa Johnson MD [address] [place] [address] 07/25/2024 11:00 AM EST Office Visit Neurology [address] [place] [address] Maksim Wright MD [address] [place] [address] Scheduled Procedures Name Priority Associated [...] Screening 02/18/2021 02/19/2020 COVID-19 Vaccine ( season) 2023 07/13/2020, 06/13/2020 Influenza Vaccine (FLU shot) (#1) [...] this encounter Medical Devices Implanted Type Area Supervisor Fabrication Device Identifier Shelf Expiration Date Model / Serial / Lot Port Powerflow 9.6fr - [id number] Implanted:Qty: 1 on 03/15/2023 at [facility] CR BARD : PERIPHERAL VASCULAR [id number] 10/21/2023 [id number] / / [id number] Power Port 8fr Sngl Lumen Plas - [id number] Implanted:Qty: 1 on 03/15/2023 at [facility] CR BARD : PERIPHERAL VASCULAR [id number] 03/22/2024 [id number] / / [id number] documented as of this encounter Advance Directives Documents on File Type Date Recorded Patient Grain Drier Expl anation Power of Wood Treating Inspector 06/20/2018 POWER OF A TTORNEY POA: EDEL- DAUGHTER, ROBERT-SON Care Teams Ground Nuclear Weapons Assembly Officer Relationship Specialty Start Date End Date Theresa Johnson MD 200 [facility] [place] [address] PCP - General Family Medicine 12/19/23 documented as of this encounter
--- OUTSIDE RECORDS SUMMARY | 2024-06-23 06:19 | External Medical Summary | Summary of Care ---
Author Name Unknown Organization [facility] Address [address] [place] [address] Phone [phone] Care Team Providers Care Solution Maker Name Role Phone Keke Johnson MD Primary Care Provider [phone] Reason for Visit * Reason Onset Date Comments Medication Refill 01/10/2024 Encounter Details Date Type Department Care Team (Late st Contact Info) Description 01/10/2024 Refill Family Practice [facility] [address] [facility] [place] [address] Keke Johnson MD 200 [place] [address] High risk for fracture due to osteoporosis by DEXA scan Allergies Active Allergy Reactions Criticality Noted Date Comments Benzalkonium Chloride 02/21/2015 Merthiolate "the orange kind" Caused a rash Milk (Cow) Diarrhea 02/05/2015 documented as of this encounter (statuses as of 01/10/2024) Medications Medication Sig Dispensed Refills Start Date End Date Status ALEVE 220 MG PO CAPS as needed Active Fluticasone Propionate 50 MCG/ACT Nasal Suspension Administer 1 [place] into nostril in the morning. Active FIBER [...] taking tablet 5 Tablet 11 01/10/2024 Active Alendronate Sodium 70 MG Oral Tablet (Fosamax)Indicatio ns:High risk for fracture due to osteoporosis by DEXA scan Take 1 Tablet by mouth once a week. with 8 oz. water 30 minutes before first meal of the day. Remain upright for 30 min after taking tablet 5 Tablet 11 12/19/2023 Discontinue d(Refill) documented as of this encounter (statuses as of 01/10/2024) Active Problems Problem Noted Date Diagnosed Date [...] as of this encounter (statuses as of 01/10/2024) Resolved Problems Problem Noted Date Diagnosed Date Resolved Date Myasthenia gravis with exacerbation 12/14/2022 12/19/2023 Nonallopathic lesion of abdo men and other sites, not elsewhere classified 11/22/2003 06/30/19 12 documented as of this encounter (statuses as of 01/10/2024) Immunizations Name Administration Dates Next Due COVID-19 [...] Influenza, Trivalen t, Adjuvanted, 65+ yrs 03/04/2020 TDAP (age 10 and older)(Boostrix) 03/16/2013 [...] Telephone Encounter - Keke Johnson MD - 01/10/2024 2:12 PM EDTSigned Prescriptions: Disp Refills Alendronate Sodium 70 MG Oral Tablet (Fosa*5 Tabl*11 Sig: Take 1 Tablet by mouth once a week. with 8 oz. water 30 minutes before first meal of the day. Remain upright for 30 min after taking tablet Authorizing Provider: KEKE JOHNSON * Telephone Encounter - Kacey Peña LPN - 01/10/2024 1:54 PM EDT Pending Prescriptions: Disp Refills Alendronate Sodium 70 MG Oral Tablet (Fosa*5 Tabl*11 Sig: Take 1 Tablet by mouth once a week. with 8 oz. water 30 minutes before first meal of the day. Remain upright for 30 min after taking tablet * Telephone Encounter - Estela Landin OSA - 01/10/2024 11:55 AM EDT Did you pend patient's preferred pharmacy and medication before forwarding?yes Pharmacy: [id number] [address] Pending Prescriptions: Disp Refills Alendronate Sodium 70 MG Oral Tablet (Fos*5 Tabl*11 Sig: Take 1 Tablet by mouth once a week. with 8 oz. water 30 minutes before first meal of the day. Remain upright for 30 min after taking tablet Last Visit: 12/19/2023 (in office), Visit date not found (telemedicine) Next Visit: 01/16/2024 If no future appointments scheduled, and last appointment is greater than a year ago, please schedule patient for a follow-up appointment Last date the medication was ordered: [id number] Is this request for a controlled substance?No Urine Drug Screen:No results found for this or any previous visit. Patient Phone Numbers Labs: Lab Results Component Value Date/Time CREAT 1.2 05/31/2023 09:12 AM CREAT 1.1 05/30/2017 11:10 AM POTASSIUM 3.8 05/31/2023 09:12 AM POTASSIUM 4.0 02/09/2017 07:04 AM TSH 1.20 05/20/2022 11:19 AM TSH 1.19 09/03/2016 11:14 AM LDLCALC 109 03/03/2021 07:05 AM LDLCALC 102 03/21/2018 07:14 AM LDLDIRECT NOT APPLICABLE 03/21/2018 07:14 AM LDLDIRECT 97 10/11/2005 10:44 AM ALT 32 05/31/2023 09:12 AM ALT 44 02/09/2017 07:04 AM HGBA1C 6.2 (H) 05/31/2023 09:12 AM HGBA1C 5.5 12/05/2013 07:09 AM documented in this encounter Plan of Treatment Upcoming Encounters Date Type Department Care Team (Latest Contact Info) Description 01/12/2024 1:30 PM EDT Hem/Onc Treatment Hemat[facility]colog [facility], [place] [facility] [phone] Krista, Chair 2 Hem Onc Scenery [address] [facility] [place] [address] 01/16/2024 9:00 AM EDT Office Visit Family Practice [facility] Krista [place] [address] [place] [address] Miriam Marx PA-C 200 [facility] [place] [address] 01/19/2024 1:00 PM EDT Hem/Onc Treatment Hematology/Oncolog [facility] Treatment, [place] [facility] [phone] Krista, Chair 11 Hem Onc Scenery [address] [place] [address] 01/26/2024 1:00 PM EDT Hem/Onc Treatment Hematology/Oncolog [facility] Treatment, [place] [facility] [address] Krista, Chair 9 Hem Onc Scenery [address] [place] [address] 02/01/2024 12:30 PM EDT Hem/Onc Treatment Hematology/Oncolog y Treatment, [place] [facility] [phone] Krista, Chair 2 Hem Onc Scenery 200 [place] [address] 02/02/2024 9:44 AM EDT Hospital Encounter [facility], Operating Room [facility] [address] [place], [place] [phone] Andre Swartz MD [address] [place] [address] 02/02/2024 9:44 AM EDT - 02/02/2024 10:19 AM EDT Surgery OR [facility], Operating Room [facility] [address] [place] [address] Andre Swartz MD [address] [place] [address] RIGHT EXTRACAPSULAR CATARACT REMOVAL WITH INTRAOCULAR LENS 02/16/2024 9:23 AM EDT Hospital Encounter [facility], Operating Room [facility] [address] [place] [address] Andre Swartz MD [address] [place] [address] 02/16/2024 9:23 AM EDT - 02/16/2024 9:58 AM EDT Surgery OR [facility], Operating Room [facility] [address] [place] [address] Andre Swartz MD [address] [place] [address] LEFT EXTRACAPSULAR CATARACT REMOVAL WITH INTRAOCULAR LENS 05/04/2024 9:45 AM EST Office Visit Dermatology [facility] [place] [address] [place], [place] [address] Marshall Henson MD [address] [place] [address] 06/18/2024 11:30 AM EST Office Visit Urology, [facility] [address] [place] [address] Ramesh Phan MD [address] [place] [address] 06/22/2024 10:40 AM EST [facility] 200 [place] [address] Keke Johnson MD [address] [facility] [address] 07/25/2024 11:00 AM EST Office Visit Neurology [...] this encounter Medical Devices Implanted Type Area Solution Specialist Device Identifier Shelf Expiration Date Model / Serial / Lot Port Powerflow 9.6fr - [id number] Implanted:Qty: 1 on 03/15/2023 at [facility] CR BARD : PERIPHERAL VASCULAR [id number] 10/21/2023 [id number] / / [id number] Power Port 8fr Sngl Lumen Plas - [id number] Implanted:Qty: 1 on 03/15/2023 at [facility] CR BARD : PERIPHERAL VASCULAR [id number] 03/22/2024 [id number] / / [id number] documented as of this encounter Visit Diagnoses Diagnosis High risk for fracture due to osteoporosis by DEXA scan Osteoporosis, unspecified Combined forms of age-related cataract of right eye Other and combined forms of senile cataract 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 eye Other and combined forms of senile cataract documented in this encounter Advance Directives Documents on File Type Date Recorded Patient Alcoholic Counselor Expl anation Power of Data Reviewer 06/20/2018 POWER OF A TTORNEY POA: EDEL- DAUGHTER, ROBERT-SON Care Teams Solution Maker Relationship Specialty Start Date End Date Keke Johnson MD [address] [place] [address] PCP - General Family Medicine 12/19/23 documented as of this encounter
--- OUTSIDE RECORDS SUMMARY | 2024-06-23 06:19 | External Medical Summary | Summary of Care ---
Author Name Unknown Organization [facility] Address [address] [place] [place] [address] Phone [phone] Care Team Providers Care Turbo Generator Oiler Name Role Phone Theresa Johnson MD Primary Care Provider [phone] Reason for Visit * Reason Comments pre-op exam Encounter Details Date Type Department Care Team (Late st Contact Info) Description 01/16/2024 9:00 AM EDT Office Visit Family [facility] 200 [facility] [place] [address] Miriam Marx PA-C 200 [facility] [place] [address] Age-related cataract of both eyes, unspecified age-related cataract type*; Pre-op examination; BPH with obstruction/lower urinary tract symptoms; Diplopia; Myasthenia gravis (HCC) Allergies Active Allergy Reactions Criticality Noted Date Comments Benzalkonium Chloride 02/21/2015 Merthiolate "the orange kind" Caused a rash Milk (Cow) Diarrhea 02/05/2015 documented as of this encounter (statuses as of 01/16/2024) Medications Medication Sig Dispensed Refills Start Date End Date Status ALEVE 220 MG PO CAPS as needed Active Fluticasone Propionate 50 MCG/ACT Nasal Suspension Administer 1 [place] into nostril in the morning. Active FIBER [...] 03/16/2023 Active predniSONE 10 MG Oral Tablet (Deltasone)Indicati ons:Vitamin D deficiency, unspecified,Diplopi a TAKE 1 TABLET BY MOUTH DAILY 30 Tablet 2 10/12/2023 Active Additional Information Patient taking differently: 5 mg Oral Daily(AM), TAKE 1 TABLET BY MOUTH DAILY, Reported on 12/19/2023 Mirtazapine 15 MG Oral Tablet (Remeron)Indication s:Adjustment [...] taking tablet 5 Tablet 11 01/10/2024 Active documented as of this encounter (statuses as of 01/16/2024) Active Problems Problem Noted Date Diagnosed Date [...] as of this encounter (statuses as of 01/16/2024) Resolved Problems Problem Noted Date Diagnosed Date Resolved Date Myasthenia gravis with exacerbation 12/14/2022 12/19/2023 Nonallopathic lesion of abdo men and other sites, not elsewhere classified 11/22/2003 06/30/19 12 documented as of this encounter (statuses as of 01/16/2024) Immunizations Name Administration Dates Next Due COVID-19 [...] Propionate 50 MCG/ACT Nasal Suspension Administer 1 [place] into nostril in the morning. FIBER ADULT [...] performed by Anjelica Lucas DO at ENDOSCOPY [facility] COLONOSCOPY, DIAGNOSTIC (RECTUM) 05/26/2020 adenomatous polyp, repeat 5 yrs / COLONOSCOPY FLEXIBLE PROXIMAL DIAGNOSTIC performed by Anjelica Lucas DO at ENDOSCOPY [facility] COLONOSCOPY, GI REFERRAL OP 2004 wnl-repeat 10 yrs COLORECTAL CANCER SCREEN;W/FLE 10/1998 wnl DENTAL SURGERY PROCEDURE NEC Dental Surgery Procedure IR APHERESIS ACCESS 03/15/2023 NEEDLE/PUNCH BIOPSY OF PROSTATE 04/21/2015 Prostate,Needle/Punch Biopsy REMOV ELSIE HOMERO JAZMINE ACC DEV,WITH N/A 01/06/2024 REMOVAL OF TUNNELED CENTRAL VENOUS ACCESS DEVICE WITH PORT performed by Osvaldo Aden MD at [facility] REMOVE TONSILS & ADENOIDS, AGE 12+ SKIN [...] forwarded to Dr Swartz. Miriam Marx PA-C documented in this encounter Nursing Notes * Nanci Cornelius CMA - 01/16/2024 9:02 AM EDT Patient presents today for pre-op exam. He is scheduled for right cataract removal on 02/02/24 and left cataract removal on 02/16/[address] Swartz. documented in this encounter Plan of Treatment Upcoming Encounters Date Type Department Care Team (Late st Contact Info) Description 01/18/2024 7:15 AM EDT Pharmacy Neurology [address] [place] [phone] Nathan, Pharmacist Neurology 100 [place] [address] 01/19/2024 1:00 PM EDT Hem/Onc Treatment Hematology/Oncolog y Treatment, [place] [address] [place] [address] Krista, Chair 11 Hem Onc Scenery 200 [place] [address] 01/25/2024 4:30 PM EDT Office Visit Neurology [address] [place] [phone] Maskim Wright MD [address] [place], [place] [id number] 01/26/2024 1:00 PM EDT Hem/Onc Treatment Hematology/Oncolog y Treatment, [place] [address] [facility] [phone] Krista, Chair 9 Hem Onc Scenery [address] [place] [address] 02/01/2024 12:30 PM EDT Hem/Onc Treatment Hematology/Oncolog y Treatment, [place] [address] [facility] [place] [address] Krista, Chair 2 Hem Onc Scenery [address] [place] [address] 02/02/2024 9:44 AM EDT Hospital Encounter [facility], Operating Room [facility] [address] [place] [address] Andre Swartz MD [address] [place] [address] 02/02/2024 9:44 AM EDT - 02/02/2024 10:19 AM EDT Surgery OR [facility], Operating Room [facility] [address] [place] [address] Andre Swartz MD [address] [place] [address] RIGHT EXTRACAPSULAR CATARACT REMOVAL WITH INTRAOCULAR LENS 02/16/2024 9:23 AM EDT Hospital Encounter [facility], Operating Room [facility] [address] [place] [address] Andre Swartz MD [address] [place] [address] 02/16/2024 9:23 AM EDT - 02/16/2024 9:58 AM EDT Surgery OR [facility], Operating Room O[facility] [address] [place] [address] Andre Swartz MD [address] [facility] 100 [place] [address] LEFT EXTRACAPSULAR CATARACT REMOVAL WITH INTRAOCULAR LENS 05/04/2024 9:45 AM EST Office Visit Dermatology [facility] [address] [place] [address] Marshall Henson MD [address] [place] [address] 06/18/2024 11:30 AM EST Office Visit Urology, [facility] 132 [place] [address] Ramesh Phan MD [address] [place] [address] 06/22/2024 10:40 AM EST Office Visit Family Practice [facility] [address] [place] [address] Theresa Johnson MD 200 [facility] [place] [address] 07/25/2024 11:00 AM EST Office Visit Neurology [address] [place] [address] Maksim Wright MD [address] [place] [address] Scheduled Procedures Name Priority Associated Diagnoses [...] this encounter Medical Devices Implanted Type Area Oil Heat Technician Device Identifier Shelf Expiration Date Model / Serial / Lot Port Powerflow 9.6fr - [id number] Implanted:Qty: 1 on 03/15/2023 at [facility] CR BARD : PERIPHERAL VASCULAR [id number] 10/21/2023 [id number] / / [id number] Power Port 8fr Sngl Lumen Plas - [id number] Implanted:Qty: 1 on 03/15/2023 at [facility] CR BARD : PERIPHERAL VASCULAR [id number] 03/22/2024 [id number] / / [id number] documented as of this encounter Visit Diagnoses [...] Documents on File Type Date Recorded Patient Funds Transfer Clerk Expl anation Power of Integration Architect 06/20/2018 POWER OF A TTORNEY POA: EDEL- DAUGHTER, ROBERT-SON Care Teams Turbo Generator Oiler Relationship Specialty Start Date End Date Theresa Johnson MD [address] [place] [address] PCP - General Family Medicine 12/19/23 documented as of this encounter
--- OUTSIDE RECORDS SUMMARY | 2024-06-23 06:19 | External Medical Summary | Summary of Care ---
Author Name Unknown Organization [facility] Address [address] [place] [address] Phone [phone] Care Team Providers Care Bsa Officer Name Role Phone Theresa Johnson MD Primary Care Provider [phone] Reason for Visit * Reason Comments IV Therapy Vyvgart * Episode Based Medications (Routine) - Authorized Specialty Diagnoses / Procedures Referred By Contac t Referred To Contact Diagnoses Myasthenia gravis (HCC) Procedures [place] INJECTION, EFGARTIGIMOD EVANGELINA-FCAB, 2MG Maksim Wright MD [address] [place] [address] Anc Hem/Onc [address] [address] Referral ID Status Reason Start Date Expiration Date V isits Requested Visits Authorized [id number] Authorized 11/04/2023 11/03/2024 99 99 Encounter Details Date Type Department Care Team (Latest Contact Info) Description 02/01/2024 12:30 PM EDT Hem/Onc Treatment Hematology/Oncology Treatment, [address] [address] Krista, Chair 2 Hem Onc [address] [address] Myasthenia gravis (HCC)* Allergies Active Allergy Reactions Criticality Noted Date Comments Benzalkonium Chloride 02/21/2015 Merthiolate "the orange kind" Caused a rash Milk (Cow) Diarrhea 02/05/2015 documented as of this encounter (statuses as of 02/01/2024) Medications Medication Sig Dispensed Refills Start Date End Date Status ALEVE 220 MG PO CAPS as needed Active Fluticasone Propionate 50 MCG/ACT Nasal Suspension Administer 1 [place] into nostril in the morning. Active FIBER [...] Sign Reading Time Taken Comments Blood Pressure 122/75 02/01/2024 12:47 PM EDT Pulse 95 02/01/2024 12:47 PM EDT Temperature 36.4 C (97.5 F) 02/01/2024 12:47 PM E DT Respiratory Rate 16 02/01/2024 12:47 PM EDT Oxygen Saturation 97% 02/01/2024 12:47 PM EDT Inhaled Oxygen Concentration - - Weight - - Height - - Body Mass Index - - documented in this encounter Nursing Notes * Vanessa Sneed LPN - 02/01/2024 12:47 PM EDT Patient arrived Chair 5 for IV therapy Vyvgart. Vital signs are stable. IV access successful at theright metacarpal vein. IV line flushed with ease; positive blood return; IV fluids connected and infusing. Call garcia within reach. 14:21 Patient completed IV therapy. IV access discontinued; site cleaned and bandaged. Patient discharged in stable condition. MTDM will advise when the patient is to be scheduled. documented in this encounter Plan of Treatment Upcoming Encounters Date Type Department Care Team (Late st Contact Info) Description 02/02/2024 9:44 AM EDT Hospital Encounter OR [facility], Operating Room [facility] [place] [phone] Andre Swartz MD [address] [address] 02/02/2024 9:44 AM EDT - 02/02/2024 10:19 AM EDT Surgery OR [facility], Operating Room [facility] [phone] Andre Swartz MD [address] [address] RIGHT EXTRACAPSULAR CATARACT REMOVAL WITH INTRAOCULAR LENS 02/07/2024 10:00 AM EDT Telemedicine Neurology [place] [address] [place] [address] [phone] Neto, Pharmacist Neurology [address] [place] [address] [place] [address] 02/16/2024 9:21 AM EDT Hospital Encounter OR [facility], Operating Room [facility] 132 [facility] [place] [phone] Andre Swartz MD [address] [address] 02/16/2024 9:21 AM EDT - 02/16/2024 9:56 AM EDT Surgery [facility], Operating Room [facility] 132 [place] [phone] Andre Swartz MD [address] [place] [address] LEFT EXTRACAPSULAR CATARACT REMOVAL WITH INTRAOCULAR LENS 05/04/2024 9:45 AM EST Office Visit Dermatology [facility] [address] [place] [address] Marshall Henson MD [address] [place] [address] 06/18/2024 11:30 AM EST Office Visit Urology, [facility] 132 [place] [address] Ramesh Phan MD [address] [place] [address] 06/22/2024 10:40 AM EST Office Visit Family Practice [facility] [address] [place] [address] Theresa Johnson MD [address] [place] [address] 07/25/2024 11:00 AM EST Office Visit Neurology [address] [place] [address] Maksim Wright MD [address] [facility] [place] [address] Scheduled Procedures Name Priority Associated Diagnoses [...] this encounter Medical Devices Implanted Type Area Small Business Sales Representative Device Identifier Shelf Expiration Date Model / Serial / Lot Port Powerflow 9.6fr - [id number] Implanted:Qty: 1 on 03/15/2023 at [facility] CR BARD : PERIPHERAL VASCULAR [id number] 10/21/2023 [id number] / / [id number] Power Port 8fr Sngl Lumen Plas - [id number] Implanted:Qty: 1 on 03/15/2023 at [facility] CR BARD : PERIPHERAL VASCULAR [id number] 03/22/2024 [id number] / / [id number] documented as of this encounter Visit Diagnoses [...] ONCE PRN Other, Hypersensitivity Reaction, Starting on Tue02/01/24 at 1220, Until Tue02/02/24 at 1219, For 24 hours EPINEPHrine 1 MG/ML inj 0.3 mg 0.3 mg, Intramuscular, ONCE PRN Other, Hypersensitivity Reaction or Anaphylaxis, Starting on Tue02/01/24 at 1220, Until Tue02/02/24 at 1219, For 24 hours hEParin 100 UNIT/ML Lock Flush inj 500 Units 500 Units (5 mL), IV Lock, PRN Other, IV Flush, Starting on Tue02/01/24 at 1220, Until Tue02/02/24 at 1219, For 24 hours, Do not flush if lock, PICC, or central line not in place; IV infusing or unable to flush. Hydrocortisone Sod Suc (PF) (Solu-Cortef) inj 100 mg 100 mg, IV Push, ONCE PRN Other, Hypersensitivity Reaction, Starting on Tue02/01/24 at 1220, Until Ambar 02/02/24 at 1219, For 24 hours NSS infusion Intravenous, at 50 mL/hr, PRN, Starting on Tue02/01/24 at 1330, Until Discontinued, Maintenance line Start Infusion 02/01/2024 12:45 PM EDT 50 mL/hr oxygen GAS Inhalation, OXYGEN, First dose on Tue02/01/24 at 1600, Until Discontinued, Device/Managed by: Low [...] Push, PRN Other, IV Flush, Starting on Tue02/01/24 at 1220, Until Ambar 02/02/24 at 1219, For 24 hours, Do not flush if lock, PICC, or central line not in place; IV infusing or unable to flush. Inactive Administered Medications - up to 3 most recent administrations Medication Order MAR Action Action Date Dose Rate Site Efgartigimod evangelina-fcab (Vyvgart) 800 mg in NSS 125 mL infusion 800 mg, IV Piggyback, ONCE, 1 dose, On Tue02/01/24 at 1330, Dose basis = 10 mg/kg In NSS - Note: VOLUME TO BE INFUSED 125 ML Infuse over 1 hour via a 0.2 micron in-line filter; do not administer as IV push or bolus. Following administration, flush entire line with NS. Start Infusion 02/01/2024 1:18 PM EDT 800 mg 125 mL/hr documented in this encounter Advance Directives Documents on File Type Date Recorded Patient Heat Treat Operator Expl anation Power of Turner Machine Operator 06/20/2018 POWER OF A TTORNEY POA: EDEL- DAUGHTER, ROBERT-SON Care Teams Bsa Officer Relationship Specialty Start Date End Date Theresa Johnson MD 200 [facility] [place] [address] PCP - General Family Medicine 12/19/23 documented as of this encounter
--- OUTSIDE RECORDS SUMMARY | 2024-06-23 06:19 | External Medical Summary | Summary of Care ---
Author Name Unknown Organization [facility] Address [address] [place] [address] Phone [phone] Care Team Providers Care Director Of Medical Services Name Role Phone Theresa Johnson MD Primary Care Provider [phone] Reason for Visit * Reason Onset Date Comments Appointment 01/09/2024 Encounter Details Date Type Department Care Team (Late st Contact Info) Description 01/09/2024 Telephone Neurology Nick [address] [place] [address] [place] [address] Maksim Wright MD [address] [place] [address] Appointment Allergies Active Allergy Reactions Criticality Noted Date Comments Benzalkonium Chloride 02/21/2015 Merthiolate "the orange kind" Caused a rash Milk (Cow) Diarrhea 02/05/2015 documented as of this encounter (statuses as of 01/11/2024) Medications Medication Sig Dispensed Refills Start Date End Date Status ALEVE 220 MG PO CAPS as needed Active Fluticasone Propionate 50 MCG/ACT Nasal Suspension Administer 1 Bryan into nostril in the morning. Active FIBER [...] around 02/08/24. * Telephone Encounter - Daniela Nnuo CPhT - 01/10/2024 11:57 AM EDT Telemedicine Visit completed * Telephone Encounter - Anette Tanner RPh - 01/09/2024 10:50 AM EDT Neurology Pharmacist Appointment Request Department & Provider: Neurology Nathan [address] [[id number]] -- Pharmacist Renata Evans[[id number]] Patient to be scheduled for visit type: Telephonic Medicine Visit [[id number]] Reason for visit: Vyvgart MG-ADL due 02/08/24 Length of visit: 30 Time Frame: around 02/08/24 Please route this encounter back to Neuro Pharmacist Refill Pool/Class [p [id number]] if unable to schedule patient after 3 attempts. documented in this encounter Plan of Treatment Upcoming Encounters Date Type Department Care Team (Latest Contact Info) Description 01/12/2024 1:30 PM EDT Hem/Onc Treatment Hematology/Oncolog y Treatment, [place] 200 [facility] Kwadwo [place] [phone] Krista, Chair 2 Hem Onc Scenery [address] [place] [address] 01/16/2024 9:00 AM EDT Office Visit [facility] Krista [place] [address] [place] [address] Miriam Marx PA-C [address] [facility] [place] [address] 01/19/2024 1:00 PM EDT Hem/Onc Treatment Hematology/Oncolog [facility] Treatment, [place] [facility] [phone] Krista, Chair 11 Hem Onc Scenery 200 [place] [address] 01/26/2024 1:00 PM EDT Hem/Onc Treatment Hematology/Oncolog [address], [address] [phone] Krista, Chair 9 Hem Onc Scenery [address] [place] [address] 02/01/2024 12:30 PM EDT Hem/Onc Treatment Hematology/Oncolog y Treatment, [place] 200 [facility] [phone] Krista, Chair 2 Hem Onc Scenery [address] [place] [address] 02/02/2024 9:44 AM EDT Hospital Encounter OR [facility], Operating Room [facility] 132 [facility] [place] [phone] Andre Swartz MD [address] [address] 02/02/2024 9:44 AM EDT - 02/02/2024 10:19 AM EDT Surgery OR [facility], Operating Room [facility] [place] [phone] Andre Swartz MD [address] [place] [address] RIGHT EXTRACAPSULAR CATARACT REMOVAL WITH INTRAOCULAR LENS 02/16/2024 9:23 AM EDT Hospital Encounter OR [facility], Operating Room [facility] 132 [place] [address] Andre Swartz MD [address] [address] 02/16/2024 9:23 AM EDT - 02/16/2024 9:58 AM EDT Surgery OR [facility], Operating Room [facility] 132 [place] [address] Andre Swartz MD [address] [address] LEFT EXTRACAPSULAR CATARACT REMOVAL WITH INTRAOCULAR LENS 05/04/2024 9:45 AM EST Office Visit Dermatology [facility] [address] [place] [address] Marshall Henson MD [address] [place] [address] 06/18/2024 11:30 AM EST Office Visit Urology, [facility] [address] [place] [address] Ramesh Phan MD [address] [place] [id number] 06/22/2024 10:40 AM EST Office Visit Family Practice Iam Velasco [place] [address] [place] [address] Theresa Johnson MD [address] [place] [address] 07/25/2024 11:00 AM EST Office Visit Neurology Nathan [address] [place] [address] Maksim Wright MD [address] [facility] [address] Scheduled Procedures Name Priority Associated [...] this encounter Medical Devices Implanted Type Area Patient Registration Supervisor Device Identifier Shelf Expiration Date Model / Serial / Lot Port Powerflow 9.6fr - [id number] Implanted:Qty: 1 on 03/15/2023 at [facility] CR BARD : PERIPHERAL VASCULAR [id number] 10/21/2023 [id number] / / [id number] Power Port 8fr Sngl Lumen Plas - [id number] Implanted:Qty: 1 on 03/15/2023 at [facility] CR BARD : PERIPHERAL VASCULAR [id number] 03/22/2024 [id number] / / [id number] documented as of this encounter Advance Directives Documents on File Type Date Recorded Patient Sail Repairer Expl anation Power of Try On Baster 06/20/2018 POWER OF A TTORNEY POA: EDEL- DAUGHTER, ROBERT-SON Care Teams Director Of Medical Services Relationship Specialty Start Date End Date Theresa Johnson MD [address] [place] [address] PCP - General Family Medicine 12/19/23 documented as of this encounter
--- OUTSIDE RECORDS SUMMARY | 2024-06-23 06:19 | External Medical Summary | Summary of Care ---
Author Name Unknown Organization [facility] Address [address] [place] [address] Phone [phone] Care Team Providers Care Station Installer Name Role Phone Theresa Johnson MD Primary Care Provider [phone] Reason for Visit * Reason Comments Infusion Vyvgart * Episode Based Medications (Routine) - Authorized Specialty Diagnoses / Procedures Referred By Contac t Referred To Contact Diagnoses Myasthenia gravis (HCC) Procedures [place] INJECTION, EFGARTIGIMOD EVANGELINA-FCAB, 2MG Maksim Wright MD [address] [place] [address] Anc Hem/Onc [address] [address] Referral ID Status Reason Start Date Expiration Date V isits Requested Visits Authorized [id number] Authorized 11/04/2023 11/03/2024 99 99 Encounter Details Date Type Department Care Team (Latest Contact Info) Description 01/19/2024 1:00 PM EDT Hem/Onc Treatment Hematology/Oncology Treatment, [address] [place] [address] Krista, Chair 11 Hem On[address] [place] [address] Myasthenia gravis (HCC)* Allergies Active Allergy Reactions Criticality Noted Date Comments Benzalkonium Chloride 02/21/2015 Merthiolate "the orange kind" Caused a rash Milk (Cow) Diarrhea 02/05/2015 documented as of this encounter (statuses as of 01/19/2024) Medications Medication Sig Dispensed Refills Start Date End Date Status ALEVE 220 MG PO CAPS as needed Active Fluticasone Propionate 50 MCG/ACT Nasal Suspension Administer 1 [place] into nostril in the morning. Active FIBER [...] as of this encounter (statuses as of 01/19/2024) Active Problems Problem Noted Date Diagnosed Date [...] as of this encounter (statuses as of 01/19/2024) Resolved Problems Problem Noted Date Diagnosed Date Resolved Date Myasthenia gravis with exacerbation 12/14/2022 12/19/2023 Nonallopathic lesion of abdo men and other sites, not elsewhere classified 11/22/2003 06/30/19 12 documented as of this encounter (statuses as of 01/19/2024) Immunizations Name Administration Dates Next Due COVID-19 [...] Sign Reading Time Taken Comments Blood Pressure 131/68 01/19/2024 1:08 PM EDT Pulse 81 01/19/2024 1:08 PM EDT Temperature 36.7 C (98.1 F) 01/19/2024 1:08 PM ED T Respiratory Rate 18 01/19/2024 1:08 PM EDT Oxygen Saturation 94% 01/19/2024 1:08 PM EDT Inhaled Oxygen Concentration - - Weight - - Height - - Body Mass Index - - documented in this encounter Nursing Notes * Adriana Loving RN - 01/19/2024 1:09 PM EDT Patient to chair 1 ambulatory Patient denies any complaints or concerns Safety and Risk for Injury Patient will remain free from injury. Ensure appropriate safety devices are available. Provide and maintain safe environment. Patient instructed on use of heat and massage functions where applicable. Patient shown how to operate the heat function of the chair and to alert nursing staff if the chair feels too warm. Patient instructed on the risk of potential rodriguez while using the heat function. Goals: patient will remain free of injury Possible barriers to meeting goals: ambulation with IV pole, increase risk of fall Stability of the patient: Moderately stable - low risk of patient condition declining or worsening Summary regarding today's goals: Met: patient remained free of injury Patient discharged in good condition, tolerated well documented in this encounter Plan of Treatment Upcoming Encounters Date Type Department Care Team (Late st Contact Info) Description 01/25/2024 4:30 PM EDT Office Visit Neurology Nathan [address] [place] [address] Maksim Wright MD 100 [address] [facility] [place] [address] 01/26/2024 1:00 PM EDT Hem/Onc Treatment Hematology/Oncolo gy Treatment, [place] 200 [place] [phone] Park, Chair 9 Hem Onc Scenery [address] [place] [address] [place] [address] 02/01/2024 12:30 PM EDT Hem/Onc Treatment Hematology/Oncolo gy Treatment, [place] 200 [place] [phone] Krista, Chair 2 Hem Onc Scenery 200 [facility] [place] [address] 02/02/2024 9:44 AM EDT Hospital Encounter OR [facility], Operating Room [facility] 132 [facility] [place] [phone] Andre Swartz MD [facility] [address] [place] [address] 02/02/2024 9:44 AM EDT - 02/02/2024 10:19 AM EDT Surgery OR [facility], Operating Room [facility] [address] [place] [address] Andre Swartz MD [address] [place] [address] RIGHT EXTRACAPSULAR CATARACT REMOVAL WITH INTRAOCULAR LENS 02/07/2024 10:00 AM EDT Telemedicine Neurology [place] [address] Nathan, Pharmacist Neurology [address] [place] [address] [place] [address] 02/16/2024 9:23 AM EDT Hospital Encounter OR [facility], Operating Room [facility] [address] [place] [address] Andre Swartz MD [address] [place] [address] 02/16/2024 9:23 AM EDT - 02/16/2024 9:58 AM EDT Surgery OR [facility], Operating Room [facility] [address] [place] [address] Andre Swartz MD [address] [place] [address] LEFT EXTRACAPSULAR CATARACT REMOVAL WITH INTRAOCULAR LENS 05/04/2024 9:45 AM EST [facility] [address] [place] [address] Marshall Henson MD [address] [place] [address] 06/18/2024 11:30 AM EST Office Visit Urology, [facility] [address] [facility] [place] [address] Ramesh Phan MD [address] [place] [address] 06/22/2024 10:40 AM EST Office [facility] 200 [facility] [place] [address] Theresa Johnson MD 200 [facility] [place] [address] 07/25/2024 11:00 AM EST Office Visit Neurology Gerardo [address] [place] [address] [place] [address] Maksim Wright MD 100 [address] [facility] [place] [address] Scheduled Procedures [...] Additional history exists Zoster Vaccines Completed 03/21/2019, 0 10/2018, 02/05/2015 Pneumococcal Vaccine: 65+ Years Completed [...] encounter Medical Devices Implanted Type Area Supervisor Self Service Store Device Identifier Shelf Expiration Date Model / Serial / Lot Port Powerflow 9.6fr - [id number] Implanted:Qty: 1 on 03/15/2023 at [facility] CR BARD : PERIPHERAL VASCULAR [id number] 10/21/2023 [id number] / / [id number] Power Port 8fr Sngl Lumen Plas - [id number] Implanted:Qty: 1 on 03/15/2023 at [facility] CR BARD : PERIPHERAL VASCULAR [id number] 03/22/2024 [id number] / / [id number] documented as of this encounter Visit Diagnoses [...] PRN Other, Hypersensitivity Reaction, Starting on Ambar 01/19/24 at 1301, Until Tue01/20/24 at 1300, For 24 hours EPINEPHrine 1 MG/ML inj 0.3 mg 0.3 mg, Intramuscular, ONCE PRN Other, Hypersensitivity Reaction or Anaphylaxis, Starting on Ambar 01/19/24 at 1301, Until Tue01/20/24 at 1300, For 24 hours hEParin 100 UNIT/ML Lock Flush inj 500 Units 500 Units (5 mL), IV Lock, PRN Other, IV Flush, Starting on Tue01/19/24 at 1301, Until Tue01/20/24 at 1300, For 24 hours, Do not flush if lock, PICC, or central line not in place; IV infusing or unable to flush. Hydrocortisone Sod Suc (PF) (Solu-Cortef) inj 100 mg 100 mg, IV Push, ONCE PRN Other, Hypersensitivity Reaction, Starting on Tue01/19/24 at 1301, Until Tue01/20/24 at 1300, For 24 hours NSS infusion Intravenous, at 50 mL/hr, PRN, Starting on Tue01/19/24 at 1415, Until Discontinued, Maintenance line Start Infusion 01/19/2024 1:05 PM EDT 50 mL/hr oxygen GAS Inhalation, OXYGEN, First dose on Tue01/19/24 at 1600, Until Discontinued, Device/Managed by: Low [...] Push, PRN Other, IV Flush, Starting on Tue01/19/24 at 1301, Until Tue01/20/24 at 1300, For 24 hours, Do not flush if lock, PICC, or central line not in place; IV infusing or unable to flush. Inactive Administered Medications - up to 3 most recent administrations Medication Order MAR Action Action Date Dose Rate Site Efgartigimod evangelina-fcab (Vyvgart) 800 mg in NSS 125 mL infusion 800 mg, IV Piggyback, ONCE, 1 dose, On Tue01/19/24 at 1415, In NSS Note: VOLUME TO BE INFUSED 125 ML Infuse over 1 hour via a 0.2 micron in-line filter; do not administer as IV push or bolus. Following administration, flush entire line with NS. Start Infusion 01/19/2024 1:58 PM EDT 800 mg 125 mL/hr documented in this encounter Advance Directives Documents on File Type Date Recorded Patient Braze Operator Expl anation Power of Liaison Planner 06/20/2018 POWER OF A TTORNEY POA: EDEL- DAUGHTER, ROBERT-SON Care Teams Station Installer Relationship Specialty Start Date End Date Theresa Johnson MD [address] [place] [address] PCP - General Family Medicine 12/19/23 documented as of this encounter
--- OUTSIDE RECORDS SUMMARY | 2024-06-23 06:19 | External Medical Summary | Summary of Care ---
Author Name Unknown Organization [facility] Address [address] [place] [address] Phone [phone] Care Team Providers Care Apparatus Lineman Name Role Phone Theresa Johnson MD Primary Care Provider [phone] Reason for Visit * Reason Comments Infusion Vyvgart * Episode Based Medications (Routine) - Authorized Specialty Diagnoses / Procedures Referred By Contac t Referred To Contact Diagnoses Myasthenia gravis (HCC) Procedures [place] INJECTION, EFGARTIGIMOD EVANGELINA-FCAB, 2MG Maksim Wright MD [address] [place] [address] Anc Hem/Onc Scenery [address] [address] Referral ID Status Reason Start Date Expiration Date V isits Requested Visits Authorized [id number] Authorized 11/04/2023 11/03/2024 99 99 Encounter Details Date Type Department Care Team (Latest Contact Info) Description 01/12/2024 1:30 PM EDT Hem/Onc Treatment Hematology/Oncology Treatment, [address] [place] [address] Krista, Chair 2 Hem On[address] [place] [address] Myasthenia gravis (HCC)* Allergies Active Allergy Reactions Criticality Noted Date Comments Benzalkonium Chloride 02/21/2015 Merthiolate "the orange kind" Caused a rash Milk (Cow) Diarrhea 02/05/2015 documented as of this encounter (statuses as of 01/12/2024) Medications Medication Sig Dispensed Refills Start Date End Date Status ALEVE 220 MG PO CAPS as needed Active Fluticasone Propionate 50 MCG/ACT Nasal Suspension Administer 1 [place] into nostril in the morning. Active FIBER [...] 09/13/2023 Calcium-Vitamin D-Minerals 600-400 MG-UNIT Oral Tablet ChewableIndications [...] as of this encounter (statuses as of 01/12/2024) Active Problems Problem Noted Date Diagnosed Date [...] as of this encounter (statuses as of 01/12/2024) Resolved Problems Problem Noted Date Diagnosed Date Resolved Date Myasthenia gravis with exacerbation 12/14/2022 12/19/2023 Nonallopathic lesion of abdo men and other sites, not elsewhere classified 11/22/2003 06/30/19 12 documented as of this encounter (statuses as of 01/12/2024) Immunizations Name Administration Dates Next Due COVID-19 [...] Sign Reading Time Taken Comments Blood Pressure 129/80 01/12/2024 1:33 PM EDT Pulse 94 01/12/2024 1:33 PM EDT Temperature 36.4 C (97.5 F) 01/12/2024 1:33 PM ED T Respiratory Rate 16 01/12/2024 1:33 PM EDT Oxygen Saturation 95% 01/12/2024 1:33 PM EDT Inhaled Oxygen Concentration - - Weight - - Height - - Body Mass Index - - documented in this encounter Nursing Notes * Adriana Loving RN - 01/12/2024 1:33 PM EDT Patient ambulatory to chair 5 Patient voices no complaints or concerns at this time Safety and Risk for Injury Patient will [...] Description 01/16/2024 9:00 AM EDT Office Visit [address] [place] [address] Miriam Marx PA-C 200 [facility] [place] [address] 01/18/2024 7:15 AM EDT Pharmacy Neurology [address] [place] [address] Nathan, Pharmacist Neurology 100 N [facility] [place] [address] 01/19/2024 1:00 PM EDT Hem/Onc Treatment Hematology/Oncolog y Treatment, [address] [place] [phone] Krista, Chair 11 Hem On[address] [place] [address] 01/26/2024 1:00 PM EDT Hem/Onc Treatment Hematology/Oncolog y Treatment, [address] [place] [phone] Krista, Chair 9 Hem Onc [address] [address] 02/01/2024 12:30 PM EDT Hem/Onc Treatment Hematology/Oncolog y Treatment, [place] [address] [place] [phone] Krista, Chair 2 Hem Onc Scene 200 [facility], [place] [address] 02/02/2024 9:44 AM EDT Hospital Encounter OR [facility], Operating Room [facility] [address] [place] [phone] Andre Swartz MD [address] [place] [address] 02/02/2024 9:44 AM EDT - 02/02/2024 10:19 AM EDT Surgery OR [facility], Operating Room [facility] [address] [place] [address] Andre Swartz MD [address] [place] [address] RIGHT EXTRACAPSULAR CATARACT REMOVAL WITH INTRAOCULAR LENS 02/16/2024 9:23 AM EDT Hospital Encounter OR [facility], Operating Room [facility] [address] [place] [phone] Andre Swartz MD [address] [place] [address] 02/16/2024 9:23 AM EDT - 02/16/2024 9:58 AM EDT Surgery OR [facility], Operating Room O[facility] [address] [place] [address] Andre Swartz MD [address] [place] [address] LEFT EXTRACAPSULAR CATARACT REMOVAL WITH INTRAOCULAR LENS 05/04/2024 9:45 AM EST Office Visit Dermatology [facility] [address] [place] [address] Marshall Henson MD [address] [place] [address] 06/18/2024 11:30 AM EST Office Visit Urology, [facility] 132 [place] [address] Ramesh Phan MD [address] [place] [address] 06/22/2024 10:40 AM EST Office Visit Family Practice [facility] [address] [place] [address] Theresa Johnson MD 200 [facility] [place] [address] 07/25/2024 11:00 AM EST Office Visit Neurology [address] [place] [address] Maksim Wright MD [address] [place] [facility] [place] [address] Scheduled Procedures Name Priority Associated [...] Sigmoidoscopy 01/12/1997 Adult Wellness Visit 11/28/2019 11/27/2018 COVID-19 Vaccine (3 - Moderna risk series) 08/10/2020 07/13/2020, 06/13/2020 Depression Screening 02/18/2021 02/19/2020 Influenza Vaccine (FLU shot) (#1) 2024 03/21/2023, [...] this encounter Medical Devices Implanted Type Area Interactive Media Specialist Device Identifier Shelf Expiration Date Model / Serial / Lot Port Powerflow 9.6fr - [id number] Implanted:Qty: 1 on 03/15/2023 at [facility] CR BARD : PERIPHERAL VASCULAR [id number] 10/21/2023 [id number] / / [id number] Power Port 8fr Sngl Lumen Plas - [id number] Implanted:Qty: 1 on 03/15/2023 at [facility] CR BARD : PERIPHERAL VASCULAR [id number] 03/22/2024 [id number] / / [id number] documented as of this encounter Visit Diagnoses [...] PRN Other, Hypersensitivity Reaction, Starting on Ambar 01/12/24 at 1337, Until Tue01/13/24 at 1336, For 24 hours EPINEPHrine 1 MG/ML inj 0.3 mg 0.3 mg, Intramuscular, ONCE PRN Other, Hypersensitivity Reaction or Anaphylaxis, Starting on Tue01/12/24 at 1337, Until Tue01/13/24 at 1336, For 24 hours hEParin 100 UNIT/ML Lock Flush inj 500 Units 500 Units (5 mL), IV Lock, PRN Other, IV Flush, Starting on Tue01/12/24 at 1337, Until Tue01/13/24 at 1336, For 24 hours, Do not flush if lock, PICC, or central line not in place; IV infusing or unable to flush. Hydrocortisone Sod Suc (PF) (Solu-Cortef) inj 100 mg 100 mg, IV Push, ONCE PRN Other, Hypersensitivity Reaction, Starting on Tue01/12/24 at 1337, Until Tue01/13/24 at 1336, For 24 hours NSS infusion Intravenous, at 50 mL/hr, PRN, Starting on Tue01/12/24 at 1445, Until Discontinued, Maintenance line Start Infusion 01/12/2024 1:38 PM EDT 50 mL/hr oxygen GAS Inhalation, OXYGEN, First dose on Tue01/12/24 at 1600, Until Discontinued, Device/Managed by: Low [...] Push, PRN Other, IV Flush, Starting on Tue01/12/24 at 1337, Until Tue01/13/24 at 1336, For 24 hours, Do not flush if lock, PICC, or central line not in place; IV infusing or unable to flush. Inactive Administered Medications - up to 3 most recent administrations Medication Order MAR Action Action Date Dose Rate Site Efgartigimod evangelina-fcab (Vyvgart) 800 mg in NSS 125 mL infusion 800 mg, IV Piggyback, ONCE, 1 dose, On Ambar 01/12/24 at 1445, In NSS Note: VOLUME TO BE INFUSED 125 ML Infuse over 1 hour via a 0.2 micron in-line filter; do not administer as IV push or bolus. Following administration, flush entire line with NS. Start Infusion 01/12/2024 2:21 PM EDT 800 mg 125 mL/hr documented in this encounter Advance Directives Documents on File Type Date Recorded Patient Risk Control Field Representative Expl anation Power of Nursing Agency Manager 06/20/2018 POWER OF A TTORNEY POA: EDEL- DAUGHTER, ROBERT-SON Care Teams Apparatus Lineman Relationship Specialty Start Date End Date Theresa Johnson MD 200 [facility] [place] [place] [address] PCP - General Family Medicine 12/19/23 documented as of this encounter
--- OUTSIDE RECORDS SUMMARY | 2024-06-23 06:19 | External Medical Summary | Summary of Care ---
Author Name Unknown Organization [facility] Address [address] [place] [address] Phone [phone] Care Team Providers Care Terrazzo Polisher Helper Name Role Phone Theresa Johnson MD Primary Care Provider [phone] Reason for Visit * Reason Onset Date Comments Information 02/01/2024 Encounter Details Date Type Department Care Team (Late st Contact Info) Description 02/01/2024 Telephone Neurology, [place] [address] [place], [place] [phone] Maksim Wright MD [address] [place] [address] Information Allergies Active Allergy Reactions Criticality Noted Date Comments Benzalkonium Chloride 02/21/2015 Merthiolate "the orange kind" Caused a rash Milk (Cow) Diarrhea 02/05/2015 documented as of this encounter (statuses as of 02/01/2024) Medications Medication Sig Dispensed Refills Start Date End Date Status ALEVE 220 MG PO CAPS as needed Active Fluticasone Propionate 50 MCG/ACT Nasal Suspension Administer 1 [place] into nostril in the morning. Active FIBER [...] encounter Miscellaneous Notes * Telephone Encounter - Vanessa Sneed LPN - 02/01/2024 2:34 PM EDT Patient was in today for Vyvgart. Under episodes says managed by [facility] and to not schedule future appts. Please advise or let us know when patient needs scheduled. documented in this encounter Plan of Treatment Upcoming Encounters Date Type Department Care Team (Late st Contact Info) Description 02/02/2024 9:44 AM EDT Hospital Encounter OR [facility], Operating Room [facility] [address] [place] [address] Andre Swartz MD [address] [address] 02/02/2024 9:44 AM EDT - 02/02/2024 10:19 AM EDT Surgery OR [facility], Operating Room [facility] [address] [place] [phone] Andre Swartz MD [address] [address] RIGHT EXTRACAPSULAR CATARACT REMOVAL WITH INTRAOCULAR LENS 02/07/2024 10:00 AM EDT Telemedicine Neurology [address] [place] [phone] Nathan, Pharmacist Neurology 100 [facility] [place] [address] 02/16/2024 9:21 AM EDT Hospital Encounter OR OSS, Operating Room [facility] [address] [place] [address] Andre Swartz MD [address] [address] 02/16/2024 9:21 AM EDT - 02/16/2024 9:56 AM EDT Surgery OR [facility], Operating Room [facility] [address] [place] [address] Andre Swartz MD [address] [address] LEFT EXTRACAPSULAR CATARACT REMOVAL WITH INTRAOCULAR LENS 05/04/2024 9:45 AM EST Office Visit Dermatology [facility] [address] [place] [address] Marshall Henson MD [address] [place] [address] 06/18/2024 11:30 AM EST Office Visit Urology, [facility] 132 [place] [address] Ramesh Phan MD [address] [address] [address] 06/22/2024 10:40 AM EST Office Visit Family Practice [facility] [address] [place] [address] Theresa Johnson MD [address] [place] [address] 07/25/2024 11:00 AM EST Office Visit Neurology [address] [place] [address] Maksim Wright MD 100 [address] [facility] [place] [address] Scheduled Procedures [...] this encounter Medical Devices Implanted Type Area Orientation And Mobility Instructor Device Identifier Shelf Expiration Date Model / Serial / Lot Port Powerflow 9.6fr - [id number] Implanted:Qty: 1 on 03/15/2023 at [facility] CR BARD : PERIPHERAL VASCULAR [id number] 10/21/2023 [id number] / / [id number] Power Port 8fr Sngl Lumen Plas - [id number] Implanted:Qty: 1 on 03/15/2023 at [facility] CR BARD : PERIPHERAL VASCULAR [id number] 03/22/2024 [id number] / / [id number] documented as of this encounter Advance Directives Documents on File Type Date Recorded Patient Php Developer Expl anation Power of Sr. Pricing Analyst 06/20/2018 POWER OF A TTORNEY POA: MAYRA- DAUGHTER, ROBERT-SON Care Teams Terrazzo Polisher Helper Relationship Specialty Start Date End Date Theresa Johnson MD 200 [place] [address] PCP - General Family Medicine 12/19/23 documented as of this encounter
--- OUTSIDE RECORDS SUMMARY | 2024-06-23 06:20 | External Medical Summary | Summary of Care ---
Author Name Unknown Organization [facility] Address [address] [place] [address] Phone [phone] Care Team Providers Care Water Gas Operator Name Role Phone Theresa Johnson MD Primary Care Provider [phone] Reason for Visit * Reason Comments Dosage Adjustment Via Phone (anticoag Cl inic) Encounter Details Date Type Department Care Team (Late st Contact Info) Description 01/09/2024 1:00 PM EDT Telemedicine Neurology [address] [place] [address] Nathan, Pharmacist Neurology [address] [place] [address] Myasthenia gravis (HCC)* Allergies Active Allergy Reactions Criticality Noted Date Comments Benzalkonium Chloride 02/21/2015 Merthiolate "the orange kind" Caused a rash Milk (Cow) Diarrhea 02/05/2015 documented as of this encounter (statuses as of 01/09/2024) Medications Medication Sig Dispensed Refills Start Date End Date Status ALEVE 220 MG PO CAPS as needed Active Fluticasone Propionate 50 MCG/ACT Nasal Suspension Administer 1 [place] into nostril in the morning. Active FIBER [...] after taking tablet 5 Tablet 11 12/19/2023 Active documented as of this encounter (statuses as of 01/09/2024) Active Problems Problem Noted Date Diagnosed Date [...] as of this encounter (statuses as of 01/09/2024) Resolved Problems Problem Noted Date Diagnosed Date Resolved Date Myasthenia gravis with exacerbation 12/14/2022 12/19/2023 Nonallopathic lesion of abdo men and other sites, not elsewhere classified 11/22/2003 06/30/19 12 documented as of this encounter (statuses as of 01/09/2024) Immunizations Name Administration Dates Next Due COVID-19 [...] this encounter Progress Notes * Anette Tanner, [facility] - 01/09/2024 8:33 AM EDT Images from the original note were not included. Patient Symptom Assessment [facility] Neurology Patient location: HOME. I was in a hospital or clinic location. After connecting through [employer],patient was verified with two unique identifiers. Patient (or authorized legal strategic partnership representative) was then informed that this was [...] Disposition: Routine follow-up Total call duration was 5 minutes. Vyvgart Dosing - Cycle 1 -09/16/23, 09/23/23, 09/30/23 , 10/07/23 Cycle 2- 11/14/23, 11/21/23, 11/28/23, 12/05/23 Baseline MG-ADL completed on 09/02/23: 6 MG-ADL on 01/09/24: Talkin [place]win Swallowin Breathin Impairment of ability to brush teeth of comb hair: 1 - lift arm, needs to think about it. Impairment of ability to arise from chair: 2 Double vision: 3 Eyelid droop: 2 - states has always been daily but not full closure - stable ptosis Total Score: 9 Patient sent MyG noting worsening of symptoms on Saturday 01/06 (day 54). Patient had ports removed on 01/05. States procedure went fine, however, when completed, his whole body felt really tight. He felt very tired on Tuesday. On Tuesday, he felt a little better but was still weak. Today he has needed a cane to get around the house. He is not as wobbly as he had been in the past, but can feel the wobbliness coming back in his hips. Patient would like to initiate next cycle. Discussed with Dr. Adriana rodriguez to initiate. Message sent to SP to reach out to schedule patient. Patient is scheduled for 01/12/24, 01/19/24, 01/26/24, 02/01/24. Sent message to schedule MG-ADL call 1 week after completion of cycle. 50 days after Day 1 of last cycle: 01/03/24 Patient was advised to contact the clinic in the meantime with any questions or concerns. Follow up: MG-ADL call 1 week after completion of cycle (around 02/08/24) Anette Tanner [facility] Clinical Pharmacist, Neurology Medication Therapy Disease Management 01/09/2024 9:01 AM documented in this encounter Plan of Treatment Upcoming Encounters Date Type Department Care Team (Late st Contact Info) Description 01/12/2024 1:30 PM EDT Hem/Onc Treatment Hematology/Oncolog y Treatment, [place] 200 [facility] [place] [phone] Krista, Chair 2 Hem On[address] [place] [address] 01/16/2024 9:00 AM EDT Office Visit Family Practice [facility] [address] [place] [place] [address] Miriam Marx PA-C [address] [place] [address] 01/18/2024 11:00 AM EDT Nurse Only Apheresis Clinic, [place] [address] [place] [facility] [place] [address] [place], Apheresis Nurse, RN [address] [place] [facility] [place] [address] 01/19/2024 1:00 PM EDT Hem/Onc Treatment Hematology/Oncolog y Treatment, [place] 200 [facility] [place] [address] Krista, Chair 11 Hem Onc [address] [address] [place] [address] 01/26/2024 1:00 PM EDT Hem/Onc Treatment Hematology/Oncolog y Treatment, [address] [place] [address] Krista, Chair 9 Hem Onc Scenery 200 [facility] [place] [address] 02/01/2024 12:30 PM EDT Hem/Onc Treatment Hematology/Oncolog y Treatment, [address] [place] [address] Krista, Chair 2 Hem Onc Scenery 200 [place] [address] 02/02/2024 9:44 AM EDT Hospital Encounter OR [facility], Operating Room [facility] 132 [place] [phone] Andre Swartz MD [address] [place] [address] 02/02/2024 9:44 AM EDT - 02/02/2024 10:19 AM EDT Surgery OR [facility], Operating Room [facility] [address] [place] [phone] Andre Swartz MD [address] [address] RIGHT EXTRACAPSULAR CATARACT REMOVAL WITH INTRAOCULAR LENS 02/16/2024 9:23 AM EDT Hospital Encounter OR [facility], Operating Room [facility] [address] [place] [phone] Andre Swartz MD [address] [address] 02/16/2024 9:23 AM EDT - 02/16/2024 9:58 AM EDT Surgery OR [facility], [facility] [place] [phone] Andre Swartz MD [address] [address] LEFT EXTRACAPSULAR CATARACT REMOVAL WITH INTRAOCULAR LENS 05/04/2024 9:45 AM EST Office Visit Dermatology [facility] [address] [place] [address] Marshall Henson MD [address] [place] [address] 06/18/2024 11:30 AM EST Office Visit Urology, [facility] 132 [place] [address] Ramesh Phan MD [address] [address] [address] 06/22/2024 10:40 AM EST Office Visit Family Practice [facility] [address] [place] [address] Theresa Johnson MD [address] [place] [address] 07/25/2024 11:00 AM EST Office Visit Neurology [address] [place] [address] Maksim Wright MD [address] [place] [address] Scheduled Procedures Name Priority Associated Diagnoses Date/Ti [...] this encounter Medical Devices Implanted Type Area Rn Dialysis Device Identifier Shelf Expiration Date Model / Serial / Lot Port Powerflow 9.6fr - [id number] Implanted:Qty: 1 on 03/15/2023 at [facility] CR BARD : PERIPHERAL VASCULAR [id number] 10/21/2023 [id number] / / [id number] Power Port 8fr Sngl Lumen Plas - [id number] Implanted:Qty: 1 on 03/15/2023 at [facility] CR BARD : PERIPHERAL VASCULAR [id number] 03/22/2024 [id number] / / [id number] documented as of this encounter Visit Diagnoses Diagnosis Myasthenia gravis (HCC)- Primary Myasthenia gravis without exacerbation Combined forms of age-related cataract of right eye Other and combined forms of senile cataract 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 eye Other and combined forms of senile cataract documented in this encounter Advance Directives Documents on File Type Date Recorded Patient Lead Fire Protection Engineer Expl anation Power of Men'S Basketball Coach 06/20/2018 POWER OF A TTORNEY POA: EDEL- DAUGHTER, ROBERT-SON Care Teams Water Gas Operator Relationship Specialty Start Date End Date Theresa Johnson MD [address] [place] [address] PCP - General Family Medicine 12/19/23 documented as of this encounter
--- OUTSIDE RECORDS SUMMARY | 2024-06-23 06:20 | External Medical Summary | Summary of Care ---
Author Name Unknown Organization [facility] Address [address] [place] [address] Phone [phone] Care Team Providers Care Parking Officer Name Role Phone Theresa Johnson MD Primary Care Provider [phone] Encounter Details Date Type Department Care Team (Late st Contact Info) Description 01/09/2024 Orders Only Neurology [address] [place] [address] Maksim Wright MD [address] [place] [address] Allergies Active Allergy Reactions Criticality Noted Date Comments Benzalkonium Chloride 02/21/2015 Merthiolate "the orange kind" Caused a rash Milk (Cow) Diarrhea 02/05/2015 documented as of this encounter (statuses as of 01/09/2024) Medications Medication Sig Dispensed Refills Start Date End Date Status ALEVE 220 MG PO CAPS as needed Active Fluticasone Propionate 50 MCG/ACT Nasal Suspension Administer 1 [place] into nostril in the morning. Active FIBER [...] PM EDT Hem/Onc Treatment Hematology/Oncolog y Treatment, [address] [place] [phone] Krista, Chair 2 Hem Onc [address] [place] [address] 01/16/2024 9:00 AM EDT Office Visit Family Practice [place] [address] [place] [address] Miriam Marx PA-C [facility] [address] [place] [address] 01/18/2024 11:00 AM EDT Nurse Only Apheresis Clinic, [place] [address] [place] [address] [place], Apheresis Nurse, RN [address] [place] [address] 01/19/2024 1:00 PM EDT Hem/Onc Treatment Hematology/Oncolog y Treatment, [address] [phone] Krista, Chair 11 Hem Onc [place] [address] [address] [place] [address] 01/26/2024 1:00 PM EDT Hem/Onc Treatment Hematology/Oncolog y Treatment, [place] [address] [place] [address] Park, Chair 9 Hem Onc [address]en[address] [place], [place] [address] 02/01/2024 12:30 PM EDT Hem/Onc Treatment Hematology/Oncolog y Treatment, [place] [facility] [place] [address] Krista, Chair 2 Hem Onc [address] [place], [place] [address] 02/02/2024 9:44 AM EDT Hospital Encounter OR [facility], Operating Room [facility] [address] [place] [phone] Andre Swartz MD [address] [address] 02/02/2024 9:44 AM EDT - 02/02/2024 10:19 AM EDT Surgery OR [facility], Operating Room [facility] [address] [place] [phone] Andre Swartz MD [address] [place] [address] RIGHT EXTRACAPSULAR CATARACT REMOVAL WITH INTRAOCULAR LENS 02/16/2024 9:23 AM EDT Hospital Encounter OR [facility], Operating Room [facility] [address] [place] [address] Andre Swartz MD [address] [address] 02/16/2024 9:23 AM EDT - 02/16/2024 9:58 AM EDT Surgery OR [facility], Operating Room [facility] [address] [place] [phone] Andre Swartz MD [address] [place] [address] [place] [address] LEFT EXTRACAPSULAR CATARACT REMOVAL WITH INTRAOCULAR LENS 05/04/2024 9:45 AM EST Office Visit Dermatology [facility] [address] [place] [address] Marshall Henson MD 200 [place] [address] 06/18/2024 11:30 AM EST Office Visit Urology, [facility] 132 [facility] [place] [address] Ramesh Phan MD [address] [place] [address] 06/22/2024 10:40 AM EST Office Visit Family Practice [facility] [address] [place] [address] Theresa Johnson MD 200 [place] [address] 07/25/2024 11:00 AM EST Office Visit Neurology [address] [place] [address] Maksim Wright MD [address] [place] [address] Scheduled Procedures Name Priority Associated Diagnoses [...] this encounter Medical Devices Implanted Type Area Farebox Repairer Device Identifier Shelf Expiration Date Model / Serial / Lot Port Powerflow 9.6fr - [id number] Implanted:Qty: 1 on 03/15/2023 at [facility] CR BARD : PERIPHERAL VASCULAR [id number] 10/21/2023 [id number] / / [id number] Power Port 8fr Sngl Lumen Plas - [id number] Implanted:Qty: 1 on 03/15/2023 at [facility] CR BARD : PERIPHERAL VASCULAR [id number] 03/22/2024 [id number] / / [id number] documented as of this encounter Advance Directives Documents on File Type Date Recorded Patient Conservation Science Officer Expl anation Power of Ash Kier Boiler 06/20/2018 POWER OF A TTORNEY POA: EDEL- DAUGHTER, ROBERT-SON Care Teams Parking Officer Relationship Specialty Start Date End Date Theresa Johnson MD [address] [place] [address] PCP - General Family Medicine 12/19/23 documented as of this encounter
--- OUTSIDE RECORDS SUMMARY | 2024-06-23 06:20 | External Medical Summary | Summary of Care ---
Author Name Unknown Organization [facility] Address [address] [place] [address] Phone [phone] Care Team Providers Care Electrical Laboratory Technician Name Role Phone Amando HARRIS MD, Rich Wright Primary Care Provider [phone] Reason for Visit * Reason Comments Treatment Line care Encounter Details Date Type Department Care Team (Late st Contact Info) Description 11/25/2023 11:00 AM EDT Nurse Only Apheresis Clinic, [place] [address] [place] [address] [facility] Apheresis Nurse, RN [address] [place] [address] Treatment (Line care) Allergies Active Allergy Reactions Criticality Noted Date Comments Benzalkonium Chloride 02/21/2015 Merthiolate "the orange kind" Caused a rash Milk (Cow) Diarrhea 02/05/2015 documented as of this encounter (statuses as of 01/10/2024) Medications Medication Sig Dispensed Refills Start Date End Date Status ALEVE 220 MG PO CAPS as needed Active Fluticasone Propionate 50 MCG/ACT Nasal Suspension Administer 1 [place] into nostril in the morning. Active FIBER [...] MOUTH DAILY 30 Tablet 2 10/12/2023 Active Mirtazapine 15 MG Oral Tablet (Remeron)Indication s:Adjustment insomnia Take 1 Tablet by mouth at bedtime. 90 Tablet 1 11/21/2023 Active documented as of this encounter (statuses [...] PM EDT Hem/Onc Treatment Hematology/Oncolog y Treatment, [address] [phone] Krista, Chair 2 Hem Onc [place] [address] [place] [address] 01/16/2024 9:00 AM EDT Office Visit Family Practice [facility] Krista [address] [place] [address] Miriam Marx PA-C 200 [facility] [place] [address] 01/18/2024 11:00 AM EDT Nurse Only Apheresis Clinic, [place] [address] [place] [phone] [facility] Apheresis Nurse, RN [address] [place], [place] [address] 01/19/2024 1:00 PM EDT Hem/Onc Treatment Hematology/Oncolog y Treatment, [address] [phone] Krista, Chair 11 Hem Onc [place] [address] [place] [address] 01/26/2024 1:00 PM EDT Hem/Onc Treatment Hematology/Oncolog y Treatment, [address] [phone] Krista, Chair 9 Hem Onc [place] [address] [place] [address] 02/01/2024 12:30 PM EDT Hem/Onc Treatment Hematology/Oncolog y Treatment, [place] [address] [place], [place] [phone] Krista, Chair 2 Hem Onc Scenery [address] [place] [address] 02/02/2024 9:44 AM EDT Hospital Encounter OR [facility], Operating Room [facility] [address] [place], [place] [phone] Andre Swartz MD [address] [place] [address] 02/02/2024 9:44 AM EDT - 02/02/2024 10:19 AM EDT Surgery OR [facility], Operating Room [facility] [address] [place] [phone] Andre Swartz MD [address] [place] [address] RIGHT EXTRACAPSULAR CATARACT REMOVAL WITH INTRAOCULAR LENS 02/16/2024 9:23 AM EDT Hospital Encounter OR [facility], Operating Room [facility] [address] [place] [address] Andre Swartz MD [address] [place] [address] 02/16/2024 9:23 AM EDT - 02/16/2024 9:58 AM EDT Surgery OR [facility], Operating Room [facility] [address] [place] [address] Andre Swartz MD [address] [place] [address] LEFT EXTRACAPSULAR CATARACT REMOVAL WITH INTRAOCULAR LENS 05/04/2024 9:45 AM EST Office Visit Dermatology [facility] [address] [place] [address] Marshall Henson MD [address] [place] [address] 06/18/2024 11:30 AM EST Office Visit Urology, [facility] 132 [facility] [place] [address] Ramesh Phan MD [address] [place] [address] [address] 06/22/2024 10:40 AM EST Office Visit Family Practice [facility] [address] [place] [address] Theresa Johnson MD [address] [place] [address] 07/25/2024 11:00 AM EST Office Visit Neurology [address] [place] [address] Maksim Wright MD 100 [address] [facility] [place] [address] Scheduled Procedures Name [...] this encounter Medical Devices Implanted Type Area Call Or Contact Centre Coach Device Identifier Shelf Expiration Date Model / Serial / Lot Port Powerflow 9.6fr - [id number] Implanted:Qty: 1 on 03/15/2023 at [facility] CR BARD : PERIPHERAL VASCULAR [id number] 10/21/2023 [id number] / / [id number] Power Port 8fr Sngl Lumen Plas - [id number] Implanted:Qty: 1 on 03/15/2023 at [facility] CR BARD : PERIPHERAL VASCULAR [id number] 03/22/2024 [id number] / / [id number] documented as of this encounter Visit Diagnoses Diagnosis Myasthenia gravis (HCC)- Primary Myasthenia gravis without exacerbation Combined forms of age-related cataract of right eye Other and combined forms of senile cataract 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 eye Other and combined forms of senile cataract documented in this encounter Administered Medications Inactive Administered Medications - up to 3 most recent administrations Medication Order MAR Action Action Date Dose Rate Site hEParin 100 UNIT/ML Lock Flush inj 500 Units 500 Units (5 mL), IV Lock, PRN Other, per procedure or visit, Starting on Tue11/25/23 at 1058, Until Tue11/25/23 at 1100, For 1 dose, Do not flush if lock, PICC, or central line not in place; IV infusing or unable to flush. Given 11/25/2023 11:00 AM EDT 500 Units hEParin 1000 UNIT/ML inj 1,080 Units 1,080 Units, IV Lock, ONCE, On Tue11/25/23 at 1130, For 1 dose, Instill 1.08ml high dose heparin to APHERESIS port only. Given 11/25/2023 11:00 AM EDT 1,080 Units documented in this encounter Advance Directives Documents on File Type Date Recorded Patient Termite Inspector Expl anation Power of Branch Lending Officer 06/20/2018 POWER OF A TTORNEY POA: EDEL- DAUGHTER, ROBERT-SON Care Teams Electrical Laboratory Technician Relationship Specialty Start Date End Date Rich Goel III, MD 200 [facility] [place] [address] PCP - General Family Medicine 02/21/12 12/18/23 documented as of this encounter
--- OUTSIDE RECORDS SUMMARY | 2024-06-23 06:20 | External Medical Summary | Summary of Care ---
Author Name Unknown Organization [facility] Address [address] [place] [address] Phone [phone] Care Team Providers Care Corn Grinder Name Role Phone Theresa Johnson MD Primary Care Provider [phone] Reason for Visit * Reason Onset Date Comments Appointment 01/09/2024 Encounter Details Date Type Department Care Team (Late st Contact Info) Description 01/09/2024 Telephone Neurology Gerardo [address] [place] [address] [place] [address] Maksim Wright MD [address] [place] [address] Appointment Allergies Active Allergy Reactions Criticality Noted Date Comments Benzalkonium Chloride 02/21/2015 Merthiolate "the orange kind" Caused a rash Milk (Cow) Diarrhea 02/05/2015 documented as of this encounter (statuses as of 01/09/2024) Medications Medication Sig Dispensed Refills Start Date End Date Status ALEVE 220 MG PO CAPS as needed Active Fluticasone Propionate 50 MCG/ACT Nasal Suspension Administer 1 [place] into nostril in the morning. Active FIBER [...] & Provider: Neurology Nathan Lawson Dr 2 [[id number]] -- Pharmacist Neurology Nathan[[id number]] Patient to be scheduled for visit type: Telephonic Medicine Visit [[id number]] Reason for visit: Vyvgart MG-ADL due 02/08/24 Length of visit: 30 Time Frame: around 02/08/24 Please route this encounter back to Neuro Pharmacist Refill Pool/Class [p [id number]] if unable to schedule patient after 3 attempts. documented in this encounter Plan of Treatment Upcoming Encounters Date Type Department Care Team (Late st Contact Info) Description 01/09/2024 1:00 PM EDT Telemedicine Neurology [address] [place] [address] Nathan Pharmacist Neurology [facility] [place] [id number] Myasthenia gravis (HCC)* 01/12/2024 1:30 PM EDT Hem/Onc Treatment Hematology/Oncolo gy Treatment, [place] [address] [place] [address] Krista, Chair 2 Hem Onc Scenery 200 [facility] [place] [address] 01/16/2024 9:00 AM EDT Office Visit Family Practice [facility] Krista [place] 200 [facility] [place] [address] Miriam Marx PA-C 200 [facility] [place] [address] 01/18/2024 11:00 AM EDT Nurse Only Apheresis Clinic, [place] [address] [place] [address] [facility] Apheresis Nurse, RENÉ [address] [place], [place] [id number] 01/19/2024 1:00 PM EDT Hem/Onc Treatment Hematology/Oncolo gy Treatment, [address], [place] [phone] Krista, Chair 11 Hem Onc Scenery 200 [facility] [place] [address] 01/26/2024 1:00 PM EDT Hem/Onc Treatment Hematology/Oncolo gy Treatment, [address], [place] [phone] Krista, Chair 9 Hem Onc Scenery 200 [facility] [place] [address] 02/01/2024 12:30 PM EDT Hem/Onc Treatment Hematology/Oncolo gy Treatment, [address], [place] [phone] Krista, Chair 2 Hem Onc Scenery 200 [facility] [place] [address] 02/02/2024 9:44 AM EDT Hospital Encounter OR [facility], Operating Room [facility] 132 [facility] [place] [address] Andre Swartz MD [address] [address] 02/02/2024 9:44 AM EDT - 02/02/2024 10:19 AM EDT Surgery OR [facility], Operating Room [facility] [address] [place] [address] Andre Swartz MD [address] [address] RIGHT EXTRACAPSULAR CATARACT REMOVAL WITH INTRAOCULAR LENS 02/16/2024 9:23 AM EDT Hospital Encounter [facility] [place] [address] Andre Swartz MD [address] [place] [address] 02/16/2024 9:23 AM EDT - 02/16/2024 9:58 AM EDT Surgery OR [facility] 132 [facility] [address] Andre Swartz MD [address] [address] LEFT EXTRACAPSULAR CATARACT REMOVAL WITH INTRAOCULAR LENS 05/04/2024 9:45 AM EST Office Visit Dermatology [facility] [address] [place] [address] Marshall Henson MD [address] [place] [address] 06/18/2024 11:30 AM EST Office Visit Urology, [facility] [address] [facility] [address] Ramesh Phan MD [address] [place] [address] [address] 06/22/2024 10:40 AM EST Office Visit Family Practice Iam Velasco [place] 200 [facility] [place] [address] Theresa Johnson MD [address] [place] [address] 07/25/2024 11:00 AM EST Office Visit Neurology Nathan Lawson [address] [place] [address] Maksim Wright MD [address] [place] [address] Scheduled Procedures Name Priority Associated Diagnoses Date/Ti [...] this encounter Medical Devices Implanted Type Area International First Officer Device Identifier Shelf Expiration Date Model / Serial / Lot Port Powerflow 9.6fr - [id number] Implanted:Qty: 1 on 03/15/2023 at [facility] CR BARD : PERIPHERAL VASCULAR [id number] 10/21/2023 [id number] / / [id number] Power Port 8fr Sngl Lumen Plas - [id number] Implanted:Qty: 1 on 03/15/2023 at [facility] CR BARD : PERIPHERAL VASCULAR [id number] 03/22/2024 [id number] / / [id number] documented as of this encounter Advance Directives Documents on File Type Date Recorded Patient Orchid Worker Expl anation Power of Janitorial Supervisor 06/20/2018 POWER OF A TTORNEY POA: EDEL- DAUGHTER, ROBERT-SON Care Teams Corn Grinder Relationship Specialty Start Date End Date Theresa Johnson MD 200 [facility] [place] [address] PCP - General Family Medicine 12/19/23 documented as of this encounter
--- OUTSIDE RECORDS SUMMARY | 2024-06-23 06:20 | External Medical Summary | Summary of Care ---
Author Name Unknown Organization [facility] Address [address] [place] [address] Phone [phone] Care Team Providers Care Medical Research Associate Name Role Phone Amando HARRIS MD, Rich Wright Primary Care Provider [phone] Reason for Visit * Reason Comments Treatment Line care Encounter Details Date Type Department Care Team (Late st Contact Info) Description 11/25/2023 11:00 AM EDT Nurse Only Apheresis Clinic, [place] [address] [place] [address] [facility] Apheresis Nurse, RN [address] [place] [address] Treatment (Line care) Allergies Active Allergy Reactions Criticality Noted Date Comments Benzalkonium Chloride 02/21/2015 Merthiolate "the orange kind" Caused a rash Milk (Cow) Diarrhea 02/05/2015 documented as of this encounter (statuses as of 01/10/2024) Medications Medication Sig Dispensed Refills Start Date End Date Status ALEVE 220 MG PO CAPS as needed Active Fluticasone Propionate 50 MCG/ACT Nasal Suspension Administer 1 [place] into nostril in the morning. Active FIBER [...] PM EDT Hem/Onc Treatment Hematology/Oncolog y Treatment, [address] [phone] Krista, Chair 2 Hem Onc [place] [address] [place] [address] 01/16/2024 9:00 AM EDT Office Visit Family Practice [facility] Krista [address] [place] [address] Miriam Marx PA-C 200 [facility] [place] [address] 01/18/2024 11:00 AM EDT Nurse Only Apheresis Clinic, [place] [address] [place] [phone] [facility] Apheresis Nurse, RN [address] [place], [place] [address] 01/19/2024 1:00 PM EDT Hem/Onc Treatment Hematology/Oncolog y Treatment, [address] [phone] Krista, Chair 11 Hem Onc [place] [address] [place] [address] 01/26/2024 1:00 PM EDT Hem/Onc Treatment Hematology/Oncolog y Treatment, [address] [address] Krista, Chair 9 Hem Onc [place] [address] [place] [address] 02/01/2024 12:30 PM EDT Hem/Onc Treatment Hematology/Oncolog y Treatment, [place] [address] [place], [place] [phone] Krista, Chair 2 Hem Onc Scenery [address] [place] [address] 02/02/2024 9:44 AM EDT Hospital Encounter OR [facility], Operating Room [facility] [address] [place], [place] [phone] Andre Swartz MD [address] [place] [address] 02/02/2024 9:44 AM EDT - 02/02/2024 10:19 AM EDT Surgery OR [facility], Operating Room [facility] [address] [place] [address] Andre Swartz MD [address] [place] [address] RIGHT EXTRACAPSULAR CATARACT REMOVAL WITH INTRAOCULAR LENS 02/16/2024 9:23 AM EDT Hospital Encounter OR [facility], Operating Room [facility] [address] [place] [address] Andre Swartz MD [address] [place] [address] 02/16/2024 9:23 AM EDT - 02/16/2024 9:58 AM EDT Surgery OR [facility], Operating Room [facility] [address] [place] [address] Andre Swartz MD [address] [place] [address] LEFT EXTRACAPSULAR CATARACT REMOVAL WITH INTRAOCULAR LENS 05/04/2024 9:45 AM EST Office Visit Dermatology [facility] [address] [place] [address] Marshall Henson MD [address] [place] [address] 06/18/2024 11:30 AM EST Office Visit Urology, [facility] 132 [facility] [place] [address] Ramesh Phan MD [address] [place] [address] [address] 06/22/2024 10:40 AM EST Office Visit Family Practice [facility] [address] [place] [address] Theresa Johnson MD [address] [place] [address] 07/25/2024 11:00 AM EST Office Visit Neurology [...] this encounter Medical Devices Implanted Type Area Cleaner Device Identifier Shelf Expiration Date Model / Serial / Lot Port Powerflow 9.6fr - [id number] Implanted:Qty: 1 on 03/15/2023 at [facility] CR BARD : PERIPHERAL VASCULAR [id number] 10/21/2023 [id number] / / [id number] Power Port 8fr Sngl Lumen Plas - [id number] Implanted:Qty: 1 on 03/15/2023 at [facility] CR BARD : PERIPHERAL VASCULAR [id number] 03/22/2024 [id number] / / [id number] documented as of this encounter Visit Diagnoses [...] Documents on File Type Date Recorded Patient Film Inspector Expl anation Power of Production Pattern Maker 06/20/2018 POWER OF A TTORNEY POA: EDEL- DAUGHTER, ROBERT-SON Care Teams Medical Research Associate Relationship Specialty Start Date End Date Rich Goel III, MD 200 [place] [address] PCP - General Family Medicine 02/21/12 12/18/23 documented as of this encounter
--- OUTSIDE RECORDS SUMMARY | 2024-06-23 06:20 | External Medical Summary | Summary of Care ---
Author Name Unknown Organization [facility] Address [address] [place] [address] Phone [phone] Care Team Providers Care Hosiery Operator Name Role Phone Theresa Johnson MD Primary Care Provider [phone] Reason for Visit * Reason Onset Date Comments Appointment 01/09/2024 Encounter Details Date Type Department Care Team (Late st Contact Info) Description 01/09/2024 Telephone Neurology Gerardo [address] [place] [address] [place] [address] Maksim Wright MD [address] [place] [address] Appointment Allergies Active Allergy Reactions Criticality Noted Date Comments Benzalkonium Chloride 02/21/2015 Merthiolate "the orange kind" Caused a rash Milk (Cow) Diarrhea 02/05/2015 documented as of this encounter (statuses as of 01/10/2024) Medications Medication Sig Dispensed Refills Start Date End Date Status ALEVE 220 MG PO CAPS as needed Active Fluticasone Propionate 50 MCG/ACT Nasal Suspension Administer 1 [place] into nostril in the morning. Active FIBER [...] Request Department & Provider: Neurology Nathan Lawson Dr, 2 [[id number]] -- Pharmacist Neurology Nathan[[id number]] Patient to be scheduled for visit type: Telephonic Medicine Visit [[id number]] Reason for visit: Vyvgart MG-ADL due 02/08/24 Length of visit: 30 Time Frame: around 02/08/24 Please route this encounter back to Neuro Pharmacist Refill Pool/Class [p [id number]] if unable to schedule patient after 3 attempts. documented in this encounter Plan of Treatment Upcoming Encounters Date Type Department Care Team (Latest Contact Info) Description 01/12/2024 1:30 PM EDT Hem/Onc Treatment Hematology/Oncolog y Treatment, [place] [address] [place] [address] Krista, Chair 2 Hem Onc Scenery [address] [place], [place] [address] 01/16/2024 9:00 AM EDT Office Visit [facility] [place] [address] [place], [place] [address] Miriam Marx PA-C [address] [place], [place] [address] 01/19/2024 1:00 PM EDT Hem/Onc Treatment Hematology/Oncolog y Treatment, [place] 200 [facility], [place] [phone] Krista, Chair 11 Hem Onc Scenery 200 [facility] [place], [place] [address] 01/26/2024 1:00 PM EDT Hem/Onc Treatment Hematology/Oncolog y Treatment, [place] 200 [facility], [place] [phone] Krista, Chair 9 Hem Onc Scenery 200 [facility] [place], [place] [address] 02/01/2024 12:30 PM EDT Hem/Onc Treatment Hematology/Oncolog y Treatment, [address], [place] [phone] Krista, Chair 2 Hem Onc Scenery 200 [facility] [place], [place] [address] 02/02/2024 9:44 AM EDT Hospital Encounter OR [facility], Operating Room [facility] [address] [place] [address] Andre Swartz MD [address], [place] [address] 02/02/2024 9:44 AM EDT - 02/02/2024 10:19 AM EDT Surgery OR [facility], Operating Room [facility] [address] [place] [address] Andre Swartz MD [address] [place] [address] RIGHT EXTRACAPSULAR CATARACT REMOVAL WITH INTRAOCULAR LENS 02/16/2024 9:23 AM EDT Hospital Encounter OR [facility], Operating Room [facility] [address] [facility] [place] [phone] Andre Swartz MD [address] [place] [address] 02/16/2024 9:23 AM EDT - 02/16/2024 9:58 AM EDT Surgery OR [facility], Operating Room [facility] [address] [place] [address] Andre Swartz MD [address] [address] LEFT EXTRACAPSULAR CATARACT REMOVAL WITH INTRAOCULAR LENS 05/04/2024 9:45 AM EST Office Visit Dermatology [facility] [address] [place] [address] Marshall Henson MD [address] [place] [address] 06/18/2024 11:30 AM EST Office Visit Urology, [facility] 132 [facility] [place] [address] Ramesh Phan MD [address] [place] [address] 06/22/2024 10:40 AM EST Office Visit Family Practice [facility] [address] [place] [address] Theresa Johnson MD [address] [place] [address] 07/25/2024 11:00 AM EST Office Visit Neurology Nathan [address] [place] [address] Maksim Wright MD 100 N [facility] [place] [id number] Scheduled Procedures Name Priority Associated Diagnoses Date/Ti [...] this encounter Medical Devices Implanted Type Area Administrative Assistant Device Identifier Shelf Expiration Date Model / Serial / Lot Port Powerflow 9.6fr - [id number] Implanted:Qty: 1 on 03/15/2023 at [facility] CR BARD : PERIPHERAL VASCULAR [id number] 10/21/2023 [id number] / / [id number] Power Port 8fr Sngl Lumen Plas - [id number] Implanted:Qty: 1 on 03/15/2023 at [facility] CR BARD : PERIPHERAL VASCULAR [id number] 03/22/2024 [id number] / / [id number] documented as of this encounter Advance Directives Documents on File Type Date Recorded Patient Collar Starcher Expl anation Power of Process Control Engineer 06/20/2018 POWER OF A TTORNEY POA: EDEL- DAUGHTER, ROBERT-SON Care Teams Hosiery Operator Relationship Specialty Start Date End Date Theresa Johnson MD [address] [place] [address] PCP - General Family Medicine 12/19/23 documented as of this encounter
--- OUTSIDE RECORDS SUMMARY | 2024-06-23 06:21 | External Medical Summary | Summary of Care ---
Author Name Unknown Organization [facility] Address [address] [facility] [place] [address] Phone [phone] Care Team Providers Care Marketing Liaison Name Role Phone Theresa Johnson MD Primary Care Provider [phone] Reason for Visit * Auth/Cert Specialty Diagnoses / Procedures Referred By Joel t Referred To Contact Diagnoses Myasthenia gravis (HCC) Myasthenia gravis (HCC) [G70.00] Procedures REMOV ELSIE HOMERO JAZMINE ACC DEV,WITH REMOVAL OF TUNNELED CENTRAL VENOUS ACCESS DEVICE WITH PORT Osvaldo Aden MD [address] [address] [facility] [address] [place] [address] Referral ID Status Reason Start Date Expiration Date Visits Re quested Visits Authorized [id number] Encounter Details Date Type Department Care Team (Latest Contact Info) Description 01/06/2024 11:02 AM EDT - 01/06/2024 1:13 PM EDT Hospital Encounter [facility], Operating Room, [facility] - 4th Floor [address] [address] [address] Osvaldo Aden MD [address] [place] [phone] Discharge Disposition: Home - Self Care Allergies Active Allergy Reactions Criticality Noted Date Comments Benzalkonium Chloride 02/21/2015 Merthiolate "the orange kind" Caused a rash Milk (Cow) Diarrhea 02/05/2015 documented as of this encounter (statuses as of 01/07/2024) Medications Medication Sig Dispensed Refills Start Date End Date Status ALEVE 220 MG PO CAPS as needed Active Fluticasone Propionate 50 MCG/ACT Nasal Suspension Administer 1 Whitney into nostril in the morning. Active FIBER [...] as of this encounter (statuses as of 01/07/2024) Active Problems Problem Noted Date Diagnosed Date [...] as of this encounter (statuses as of 01/07/2024) Resolved Problems Problem Noted Date Diagnosed Date Resolved Date Myasthenia gravis with exacerbation 12/14/2022 12/19/2023 Nonallopathic lesion of abdo men and other sites, not elsewhere classified 11/22/2003 06/30/19 12 documented as of this encounter (statuses as of 01/07/2024) Immunizations Name Administration Dates Next Due COVID-19 [...] Sign Reading Time Taken Comments Blood Pressure 148/85 01/06/2024 12:56 PM EDT Pulse 79 01/06/2024 12:56 PM EDT Temperature 36.2 C (97.2 F) 01/06/2024 12:56 PM E DT Respiratory Rate 18 01/06/2024 12:56 PM EDT Oxygen Saturation 96% 01/06/2024 12:56 PM EDT Inhaled Oxygen Concentration - - Weight 90.7 kg (200 lb) 01/06/2024 11:08 AM EDT Height 170.2 cm (5' 7") 01/06/2024 11:08 AM EDT Body Mass Index 31.32 01/06/2024 11:08 AM EDT documented in this encounter Discharge Instructions * Discharge Instr - AVS* Osvaldo Aden MD - 01/06/2024 12:57 PM EDT Discharge Date: 01/06/2024 Provider: Dr. Osvaldo Aden If you are experiencing any problems related to your procedure, please contact Interventional Radiology at [phone] during normal business hours: Tuesday- Tuesday 7:30 am - 4 pm. If a problem occursoutside of normal business hours, please call the hospital quarry plant crusher operator at [phone] and ask for theInterventional Radiologist stone and plate preparer apprentice. Contact scheduling for Interventional Radiology at [phone] during normal business hours: Tuesday-Tuesday, 7:30 am - 4 pm. The information below provides you with the instructions and the list of medications you need to betaking following discharge from the hospital. If you have any questions, please ask before leaving. Please carry this letter with you when you see your doctor in the clinic. If you have questions, you can reach us at the numbers above. SPECIAL INSTRUCTIONS Mediport Removal (Implanted Central Venous Access) Home Care If you are experiencing pain or discomfort at the site you may use a cold pack on the site and/or take acetaminophen (Tylenol) or your preferred pain medicine as directed. Avoid contact sports or any activity that may cause blunt force impact to the surgical site until the wound is completely healed. Avoid strenuous activity for 24 to 48 hours after the procedure. Do not lift anything heavier than 10 pounds for 3 days after the procedure. Gradually increase your activity after 24 to 48 hours after the procedure. No dressing changes or wound care are needed at the removal site. Your wound is closed with sutureson the inside and then sealed on the outside with a special "skin glue" called Dermabond (a surgical glue). Depending on your provider's preference, there may also be "steri strips" applied. It is very important to let these special bandages fall off on their own. Please do not scrub or pull these bandages off. You may gently wash the site with soap and water. Depending on your provider's preference, there may also be a gauze and Tegaderm (clear) bandage over the surgical site. You may remove this bandage in 24 hours. You may shower after 24 hours. Gently wash the area and pat it dry. Please do not take a bath, soak in a hot tub, or swim until the wound is completely healed. When to Call Interventional Radiology Call Interventional Radiology right away if you have any of the following: Fever above 100 degrees Fahrenheit Increased bleeding, redness, swelling, warmth, or discharge at the incision site. Constant or increasing pain, numbness, coldness, or tingling around the incision area. Vomiting or nausea that does not go away If at any time you feel you have a medical emergency, call 911 for emergency assistance. Symptoms may include: Chest Pain Sudden, severe shortness of breath Rapid heart rate Sudden onset of weakness Do not smoke or use tobacco products in any way! If you feel suicidal or homicidal, please call the crisis hotline at 3-095-280-JZJO ([phone]) Driving: You may resume driving . Diet: You may resume your current diet as tolerated. Return to work or school: You may return to school or work 1 days after the procedure, unless otherwise instructed by the physician. documented in this encounter Progress Notes * Osvaldo Aden MD - 01/06/2024 12:58 PM EDT [address] [address] OUTPATIENT SURGERY DISCHARGE SUMMARY NOTE Name: Giorgio Sosa Location: [facility]/DC Date: 01/06/2024 Time: 12:58 PM Surgery Date: 01/06/2024 Procedure: REMOVAL OF TUNNELED CENTRAL VENOUS ACCESS DEVICE WITH PORT N/A Surgeon: Osvaldo Aden MD Discharge Diagnosis: port removal x2 After examination of this patient, I have determined he is ready for discharge to home when the patient meets criteria. Discharge instructions were given to the patient. documented in this encounter H&P Notes * Osvaldo Aden MD - 01/06/2024 11:39 AM EDT HISTORY & PHYSICAL - Interventional Radiology Service [address] [facility] [place] [address] Name: Giorgio Sosa Location: [facility]/OR Date: 01/06/2024 Time: 11:40 AM CHIEF COMPLAINT: Bilateral ports no longer needed HISTORY OF PRESENT ILLNESS: Port removal. Apheresis completed. Past Medical History: Diagnosis Date Allergic disorder [...] performed by Anjelica Lucas DO at ENDOSCOPY [facility] COLONOSCOPY, DIAGNOSTIC (RECTUM) 05/26/2020 adenomatous polyp, repeat 5 yrs / COLONOSCOPY FLEXIBLE PROXIMAL DIAGNOSTIC performed by Anjelica Lucas DO at ENDOSCOPY [facility] COLONOSCOPY, GI REFERRAL OP 2004 wnl-repeat 10 yrs COLORECTAL CANCER SCREEN;W/FLE 10/1998 wnl DENTAL SURGERY PROCEDURE [facility] Dental Surgery Procedure IR APHERESIS ACCESS 03/15/2023 NEEDLE/PUNCH BIOPSY OF PROSTATE 04/21/2015 Prostate,Needle/Punch Biopsy REMOVE TONSILS & ADENOIDS, AGE 12+ SKIN LESIONS BIOPSY,ADDED 05/02/2018 chest area basal cell removed by Dr Mejia Social History Socioeconomic History Marital status: Spouse name: Peg Number of children: 2 Years of education: 16+ Highest education level: Not on file Occupational History 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 Employer: [employer] Tobacco Use Smoking status: Never Passive exposure: Past Smokeless tobacco: Never Tobacco comments: Mother smoked around as child no current passive smoke exposure Vaping Use Vaping status: Never Used Substance and Sexual Activity Alcohol use: Not Currently Comment: occ Drug use: No Sexual activity: Yes Partners: Female Other Topics Concern Service No Blood Transfusions No Caffeine Concern No Occupational Exposure No Hobby Hazards No Sleep Concern No Stress Concern No Weight Concern No Special Diet No Back Care Yes Exercise Yes Bike Helmet No Seat Belt Yes Self-Exams No Social History Narrative Not on file Social Determinants of Health Financial Resource Strain: Not on file Food Insecurity: Not on file Transportation Needs: Not on file Social Connections: Unknown (11/08/2023) Social Connections How often do you feel lonely or isolated from those around you? (Adult - for ages 18 years and over): Not on file Housing Stability: Not on file Family History Problem Relation Name Age of [...] Known Problems Other No Known Problems Son Review of patient's allergies indicates: Allergen Reactions Merthiolate [Benzalkonium Chloride] Merthiolate "the orange kind" Caused a rash Milk [Milk (Cow)] Diarrhea No current facility-administered medications for this encounter. REVIEW OF SYSTEMS: Constitutional: (-) fever chills sweats or weight loss Cardiovascular: (-) negative: no chest pain, dyspnea, syncope, or palpitations Pulmonary: (-) negative: no cough, wheezing, or shortness of breath Abdominal/GI: (-) negative: no pain, heartburn, dysphagia, bleeding, change in bowel habits, nauseaor vomiting OBJECTIVE: BP 153/67 | Pulse 100 | Temp 36.1 C (97 F) (Tympanic) | Resp 18 | Ht 1.702 m (5' 7") | Wt 90.7 kg (200 lb) | SpO2 97% | BMI 31.32 kg/m | BSA 2.07 m PHYSICAL EXAM: Constitutional: no acute distress CV: normal rate and rhythm, no murmur, gallops or rub Chest: normal respiratory effort, lungs clear to auscultation and percussion, breath sounds normal Abdomen: normal: soft, bowel sounds normal, no masses, tenderness or organomegaly LABS: CBC Results: PT INR Results: BUN Results: Lab Results Component Value Date/[facility] 09:12 AM BUN - [facility] 20 05/13/2023 09:06 AM BUN - [facility] 22 (H) 03/25/2023 01:56 PM BUN - [facility] 19 05/30/2017 11:10 AM BUN - [facility] 23 (H) 02/09/2017 07:04 AM BUN - [facility] 19 09/03/2016 11:14 AM Creatinine Results: Lab Results Component Value Date/Time CREATININE - [facility] 1.2 05/31/2023 09:12 AM CREATININE - [facility] 0.9 05/13/2023 09:06 AM CREATININE - [facility] 1.1 03/25/2023 01:56 PM CREATININE - [facility] 1.1 05/30/2017 11:10 AM CREATININE - [facility] 1.2 02/09/2017 07:04 AM CREATININE - [facility] 1.1 09/03/2016 11:14 AM Potassium Results: Lab Results Component Value Date/Time POTASSIUM - [facility] 3.8 05/31/2023 09:12 AM POTASSIUM - [facility] 3.7 05/13/2023 09:06 AM POTASSIUM - [facility] 4.1 03/25/2023 01:56 PM POTASSIUM - [facility] 4.0 02/09/2017 07:04 AM POTASSIUM - [facility] 4.3 09/03/2016 11:14 AM POTASSIUM - [facility] 3.8 12/05/2013 07:09 AM INFORMED CONSENT: Yes PRE-SEDATION ASSESSMENT IMPRESSION/PLAN: Port removal x2 Osvaldo Aden MD documented in this encounter OR Notes * OR Surgeon - Osvaldo Aden MD - 01/06/2024 1:13 PM EDT Procedure: chest medical port removal x2. 01/06/2024 INDICATION: [Pheresis catheter no longer needed. Bilateral port removal requested] ATTENDING (OPERATING PHYSICIAN): Keiko CONSENT: After a detailed discussion of the procedure, risks, benefits and alternative treatment options, informed consent was obtained. TIME OUT: A time out procedure was performed. The patient's identification was verified. Informed consent with agreement of procedure, site and position was obtained. All necessary equipment was available prior to procedure. CONTRAST: No contrast was administered. COMPLICATIONS: None. ANESTHESIA: [Local lidocaine.] MEDICATIONS: See MAR PROCEDURE DESCRIPTION: The patient was placed on the fluoroscopy table and a hammersmith helper fluoroscopic image of the chest was obtained. The [right] neck and chest were prepped and draped in the usual sterile fashion. An incision was made over the scar from medical port placement. The medical port was removed, inspected, and noted to be removed in its entirety. The port pocket was inspected. A final post removal image was obtained. The incision was then closed with suture and surgical glue. The [left] neck and chest were prepped and draped in the usual sterile fashion. An incision was made over the scar from medical port placement. The medical port was removed, inspected, and noted to be removed in its entirety. The port pocket was inspected. A final post removal image was obtained. The incision was then closed with suture and surgical glue. The procedure was performed by Dr. Aden. Findings: The medical port is in the bilateral upper chest. The final image demonstrates complete removal x2. Impression: Successful chest medical port removal x2. * Operative Report Brief - Osvaldo Aden MD - 01/06/2024 12:55 PM EDT PROCEDURE NOTE - Interventional Radiology [facility] [address] Name: Giorgio Sosa Location: [facility]/OR Date: 01/06/2024 Time: 12:55 PM PROCEDURE: bilateral port removal REFRIGERATION HOUSEMAN: Dr. Osvaldo Aden ASSISTANTS: none ANESTHESIA: local COMPLICATIONS: none SPECIMEN: device to laboratory ESTIMATED BLOOD LOSS: negligible FINDINGS: bilateral ports removed intact documented in this encounter Plan of Treatment Upcoming Encounters Date Type Department Care Team (Late st Contact Info) Description 01/09/2024 1:00 PM EDT Telemedicine Neurology [address] [place] [phone] Nathan, Pharmacist Neurology [address] [place] [address] 01/16/2024 9:00 AM EDT Office Visit Family [facility] [place] [address] [place] [address] Miriam Marx PA-C [address] [place] [address] 01/18/2024 11:00 AM EDT Nurse Only Apheresis Clinic, Nathan [address] [place] [id number] [facility] Apheresis Nurse, RN [address] [place] [address] 02/02/2024 9:44 AM EDT Hospital Encounter [facility], Operating Room [facility] [address] [place] [phone] Andre Swartz MD [address] [address] 02/02/2024 9:44 AM EDT - 02/02/2024 10:19 AM EDT [facility] [phone] Andre Swartz MD [address] [address] RIGHT EXTRACAPSULAR CATARACT REMOVAL WITH INTRAOCULAR LENS 02/16/2024 9:23 AM EDT Hospital Encounter [facility], Operating Room [facility] [address] [facility] [place] [phone] Andre Swartz MD [address] [address] 02/16/2024 9:23 AM EDT - 02/16/2024 9:58 AM EDT Surgery [facility], Operating Room [facility] [address] [place] [phone] Andre Swartz MD [address] [place] [address] LEFT EXTRACAPSULAR CATARACT REMOVAL WITH INTRAOCULAR LENS 05/04/2024 9:45 AM EST Office Visit Dermatology [facility] [address] [place] [address] Marshall Henson MD [address] [place] [address] 06/18/2024 11:30 AM EST Office Visit Urology, [facility] [address] [place] [address] Ramesh Phan MD [address] [place] [address] 06/22/2024 10:40 AM EST Office Visit Family Practice [facility] [address] [place] [address] Theresa Johnson MD [address] [place] [address] 07/25/2024 11:00 AM EST Office Visit Neurology [address] [place] [address] Maksim Wright MD [address] [facility] [place] [address] Scheduled Procedures Name Priority Associated Diagnoses [...] this encounter Medical Devices Implanted Type [employer] Attendant Device Identifier Shelf Expiration Date Model / Serial / Lot Port Powerflow 9.6fr - [id number] Implanted:Qty: 1 on 03/15/2023 at [facility] : PERIPHERAL VASCULAR [id number] 10/21/2023 [id number] / / [id number] Power Port 8fr Sngl Lumen Plas - [id number] Implanted:Qty: 1 on 03/15/2023 at [facility] : PERIPHERAL VASCULAR [id number] 03/22/2024 [id number] / / [id number] documented as of this encounter Procedures Procedure Name Priority Date/Time Associated Diagnosis Comments IR INTERVENTIONAL RADIOLOGY PROCEDURE IN OR Routine 01/06/2024 12:53 PM EDT documented in this encounter Results * IR INTERVENTIONAL RADIOLOGY PROCEDURE IN OR (01/06/2024 12:53 PM EDT) 01/06/2024 1:48 PM EDT Impressions [facility] RADIOLOGY - 01/06/2024 1:45 PM EDT IMPRESSION: Successful chest medical port removal x2. Narrative [facility] RADIOLOGY - 01/06/2024 1:45 PM EDT PROCEDURE: chest medical port removal x2. 01/06/2024 INDICATION: Pheresis catheter no longer needed. Bilateral port removal requested ATTENDING (OPERATING PHYSICIAN): Keiko CONSENT: After a detailed discussion of the procedure, risks, benefits and alternative treatment options, informed consent was obtained. TIME OUT: A time out procedure was performed. The patient's identification was verified. Informed consent with agreement of procedure, site and position was obtained. All necessary equipment was available prior to procedure. CONTRAST: No contrast was administered. COMPLICATIONS: None. ANESTHESIA: Local lidocaine. MEDICATIONS: See MAR PROCEDURE DESCRIPTION: The patient was placed on the fluoroscopy table and a hammersmith helper fluoroscopic image of the chest was obtained. The right neck and chest were prepped and draped in the usual sterile fashion. An incision was made over the scar from medical port placement. The medical port was removed, inspected, and noted to be removed in its entirety. The port pocket was inspected. A final post removal image was obtained. The incision was then closed with suture and surgical glue. The left neck and chest were prepped and draped in the usual sterile fashion. An incision was made over the scar from medical port placement. The medical port was removed, inspected, and noted to be removed in its entirety. The port pocket was inspected. A final post removal image was obtained. The incision was then closed with suture and surgical glue. The procedure was performed by Dr. Aden. FINDINGS: The medical port is in the bilateral upper chest. The final image demonstrates complete removal x2. Procedure Note Osvaldo Aden MD - 01/06/2024 PROCEDURE: chest medical port removal x2. 01/06/2024 INDICATION: Pheresis catheter no longer needed. Bilateral port removalrequested ATTENDING (OPERATING PHYSICIAN): Keiko CONSENT: After a detailed discussion of the procedure, risks, benefits andalternative treatment options, informed consent was obtained. TIME OUT: A time out procedure was performed. The patient's identificationwas verified. Informed consent with agreement of procedure, site andposition was obtained. All necessary equipment was available prior toprocedure. CONTRAST: No contrast was administered. COMPLICATIONS: None. ANESTHESIA: Local lidocaine. MEDICATIONS: See MAR PROCEDURE DESCRIPTION: The patient was placed on the fluoroscopy table sanya hammersmith helper fluoroscopic image of the chest was obtained. The right neck and chest were prepped and draped in the usual sterilefashion. An incision was made over the scar from medical port placement.The medical port was removed, inspected, and noted to be removed in itsentirety. The port pocket was inspected. A final post removal image wasobtained. The incision was then closed with suture and surgical glue. The left neck and chest were prepped and draped in the usual sterilefashion. An incision was made over the scar from medical port placement.The medical port was removed, inspected, and noted to be removed in itsentirety. The port pocket was inspected. A final post removal image wasobtained. The incision was then closed with suture and surgical glue. The procedure was performed by Dr. Aden. FINDINGS: The medical port is in the bilateral upper chest. The final imagedemonstrates complete removal x2. IMPRESSION IMPRESSION: Successful chest medical port removal x2. Osvaldo Aden MD [facility] SPECIAL PROCEDUR ES Performing Organization Address City/State/[facility] Co ms Phone Number [facility] documented in this encounter Active and Recently Administered Medications Times are shown in EDT. PRN Medication Order 01/04/2024 01/05/2024 01/06/2024 buffered lidocaine 1 % inj (CANCELED) ONCE PRN INTRA PROCEDURE, Starting on Tue01/06/24 at 1239, Until Tue01/06/24 at 1250, Intra-Op 1239 (Given - Provid er: Osvaldo Aden MD) documented in this encounter Advance Directives Documents on File Type Date Recorded Patient Cake Wrapper Expl anation Power of Academic Support Director 06/20/2018 POWER OF A TTORNEY POA: EDEL- DAUGHTER, ROBERT-SON Care Teams Marketing Liaison Relationship Specialty Start Date End Date Theresa Johnson MD [address] [place] [address] PCP - General Family Medicine 12/19/23 documented as of this encounter
--- OUTSIDE RECORDS SUMMARY | 2024-06-23 06:21 | External Medical Summary | Summary of Care ---
Author Name Unknown Organization [facility] Address [address] [place] [address] Phone [phone] Care Team Providers Care Imaging Aide Name Role Phone Theresa Johnson MD Primary Care Provider [phone] Reason for Visit * Reason Comments Dosage Adjustment Via Phone (anticoag Cl inic) Encounter Details Date Type Department Care Team (Late st Contact Info) Description 01/02/2024 1:00 PM EDT Telemedicine Neurology [address] [place] [phone] Nathan, Pharmacist Neurology [address] [place] [address] Myasthenia gravis (HCC)* Allergies Active Allergy Reactions Criticality Noted Date Comments Benzalkonium Chloride 02/21/2015 Merthiolate "the orange kind" Caused a rash Milk (Cow) Diarrhea 02/05/2015 documented as of this encounter (statuses as of 01/02/2024) Medications Medication Sig Dispensed Refills Start Date End Date Status ALEVE 220 MG PO CAPS as needed Active Fluticasone Propionate 50 MCG/ACT Nasal Suspension Administer 1 [place] into nostril in the morning. Active FIBER [...] as of this encounter (statuses as of 01/02/2024) Active Problems Problem Noted Date Diagnosed Date [...] as of this encounter (statuses as of 01/02/2024) Resolved Problems Problem Noted Date Diagnosed Date Resolved Date Myasthenia gravis with exacerbation 12/14/2022 12/19/2023 Nonallopathic lesion of abdo men and other sites, not elsewhere classified 11/22/2003 06/30/19 12 documented as of this encounter (statuses as of 01/02/2024) Immunizations Name Administration Dates Next Due COVID-19 [...] Progress Notes * Anette Tanner, [facility] - 01/02/2024 11:33 AM EDT Images from the original note were not included. Patient Symptom Assessment [facility] Neurology Patient location: HOME. I was in a hospital or clinic location. After connecting through [employer],patient was verified with two unique identifiers. Patient [...] Disposition: Routine follow-up Total call duration was 8 minutes. Vyvgart Dosing - Cycle 1 -09/16/23, 09/23/23, 09/30/23 , 10/07/23 Cycle 2- 11/14/23, 11/21/23, 11/28/23, 12/05/23 Baseline MG-ADL completed on 09/02/23: 6 MG-ADL on 01/02/24: Talkin [place] Swallowin Breathin Impairment of ability to brush teeth of comb hair: 0 Impairment of ability to arise from chair: 2 - possible that this is due to exercise (see below) Double vision: 3 Eyelid droop: 2 - states has always been daily but not full closure - stable ptosis Total Score: 7 Per patient, no major changes this week. If he pushes himself too much, he does find that he needs recovery time. Still going to the gym. He feels that his muscles are having trouble recovering from the exercises he is doing at the gym, specifically leg muscles, and feels that he needs to use his arms more to get out of the chair because of sore muscles (explains +1 on MG-ADL). Likely that this is more related to muscle soreness from working out and not muscle weakness due to MG. Received message from infusion center noting that medication was received so patient can be scheduled once we are planning to re-dose. At this time, patient feels he does not feel he needs to start next cycle but worries that symptoms will worsen during the week. Sent MyG to patient so that he can reach out with any concerns that may arise before call next week. Started second round on day 59- felt that day 56 was significantly worsened. 50 days after Day 1 of last cycle: 01/03/24 Patient was advised to contact the clinic in the meantime with any questions or concerns. Follow up: MG-ADL one week Anette Tanner RPh Clinical Pharmacist, Neurology Medication Therapy Disease Management 01/02/2024 11:34 AM documented in this encounter Plan of Treatment Upcoming Encounters Date Type Department Care Team (Late st Contact Info) Description 01/06/2024 12:09 PM EDT Hospital Encounter OR [facility], Operating Room, [facility] - 4th Floor [address] [address] Osvaldo Aden MD [address] [address] 01/06/2024 12:09 PM EDT - 01/06/2024 1:02 PM EDT Surgery OR [facility], Operating Room, [facility] - 4th Floor [address] [address] Osvaldo Aden MD [address] [address] REMOVAL OF TUNNELED CENTRAL VENOUS ACCESS DEVICE WITH PORT 01/09/2024 1:00 PM EDT Telemedicine Neurology [address], [place] [address], [place] [phone] Nathan, Pharmacist Neurology [address] [place] [address] 01/16/2024 9:00 AM EDT Office Visit [facility] [place] [address] [facility] [place] [address] Miriam Marx PA-C [address] [facility] [place] [address] 01/18/2024 11:00 AM EDT Nurse Only Apheresis Clinic, [place] [address] [facility] [place] [phone] Nathan, Apheresis Nurse, RN [address] [place] [address] 02/02/2024 9:44 AM EDT Hospital Encounter OR [facility], Operating Room [facility] [address] [place] [phone] Andre Swartz MD [address] [place] [address] 02/02/2024 9:44 AM EDT - 02/02/2024 10:19 AM EDT Surgery OR [facility], Operating Room [facility] [address] [place] [phone] Andre Swartz MD [address] [address] RIGHT EXTRACAPSULAR CATARACT REMOVAL WITH INTRAOCULAR LENS 02/16/2024 9:23 AM EDT Hospital Encounter OR [facility], Operating Room [facility] [address] [place] [phone] Andre Swartz MD [address] [place] [address] 02/16/2024 9:23 AM EDT - 02/16/2024 9:58 AM EDT Surgery OR [facility], Operating Room [facility] [address] [place] [phone] Andre Swartz MD [address] [place] [address] LEFT EXTRACAPSULAR CATARACT REMOVAL WITH INTRAOCULAR LENS 05/04/2024 9:45 AM EST Office Visit Dermatology [facility] [address] [place] [address] Marshall Henson MD [address] [facility] [place] [address] 06/18/2024 11:30 AM EST Office Visit Urology, [facility] [address] [facility] [place] [address] Ramesh Phan MD [address] [place] [address] 06/22/2024 10:40 AM EST Office Visit Family Practice [facility] [address] [place] [address] Theresa Johnson MD [address] [facility] [place], [place] [address] 07/25/2024 11:00 AM EST Office Visit Neurology Nathan [address] [place] [phone] Maksim Wright MD [address] [facility] [place] [address] Scheduled Procedures Name Priority Associated Diagnoses Date/Ti me REMOVAL OF TUNNELED CENTRAL VENOUS ACCESS DEVICE WITH PORT Myasthenia gravis (HCC) 01/06/2024 12:09 PM EDT EXTRACAPSULAR CATARACT REMOVAL WITH INTRAOCULAR LENS [...] this encounter Medical Devices Implanted Type Area Loom Fixer Supervisor Device Identifier Shelf Expiration Date Model / Serial / Lot Port Powerflow 9.6fr - [id number] Implanted:Qty: 1 on 03/15/2023 at [facility] CR [employer]ARD : PERIPHERAL VASCULAR [id number] 10/21/2023 [id number] / / [id number] Power Port 8fr Sngl Lumen Plas - [id number] Implanted:Qty: 1 on 03/15/2023 at [facility] CR BARD : PERIPHERAL VASCULAR [id number] 03/22/2024 [id number] / / [id number] documented as of this encounter Visit Diagnoses Diagnosis Myasthenia gravis (HCC)- Primary Myasthenia gravis without exacerbation Myasthenia gravis (HCC) Myasthenia gravis without exacerbation Combined forms of age-related cataract of right eye Other and combined forms of senile cataract 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 eye Other and combined forms of senile cataract documented in this encounter Advance Directives Documents on File Type Date Recorded Patient Human Resources Executive Assistant Expl anation Power of Telegraphic Typewriter Operator Chief 06/20/2018 POWER OF A TTORNEY POA: EDEL- DAUGHTER, ROBERT-SON Care Teams Imaging Aide Relationship Specialty Start Date End Date Theresa Johnson MD [address] [place] [address] PCP - General Family Medicine 12/19/23 documented as of this encounter
--- OUTSIDE RECORDS SUMMARY | 2024-06-23 06:21 | External Medical Summary | Summary of Care ---
Author Name Unknown Organization [facility] Address [address] [place] [address] Phone [phone] Care Team Providers Care Horse Doctor Name Role Phone Theresa Johnson MD Primary Care Provider [phone] Reason for Referral * Precert (Within 10 days (routine)) - Authorized Specialty Diagnoses / Procedures Referred By Contac t Referred To Contact Radiology Diagnoses Myasthenia gravis (HCC) Procedures IR VENOUS ACCESS Maksim Olson MD [address] [place] [address] Referral ID Status Reason Start Date Expiration Date V isits Requested Visits Authorized [id number] Authorized 12/29/2023 999 999 Reason for Visit * Reason Onset Date Comments Follow Up 12/21/2023 Order Request 12/21/2023 Adriana/medi port removal Encounter Details Date Type Department Care Team (Late st Contact Info) Description 12/21/[address]phone [address] [place] [phone] Maksim Wright MD [address] [place] [address] Follow Up (/); Order Request (Adriana/... Allergies Active Allergy Reactions Criticality Noted Date Comments Benzalkonium Chloride 02/21/2015 Merthiolate "the orange kind" Caused a rash Milk (Cow) Diarrhea 02/05/2015 documented as of this encounter (statuses as of 12/29/2023) Medications Medication Sig Dispensed Refills Start Date End Date Status ALEVE 220 MG PO CAPS as needed Active Fluticasone Propionate 50 MCG/ACT Nasal Suspension Administer 1 [place] into nostril in the morning. Active FIBER [...] as of this encounter (statuses as of 12/29/2023) Active Problems Problem Noted Date Diagnosed Date [...] as of this encounter (statuses as of 12/29/2023) Resolved Problems Problem Noted Date Diagnosed Date Resolved Date Myasthenia gravis with exacerbation 12/14/2022 12/19/2023 Nonallopathic lesion of abdo men and other sites, not elsewhere classified 11/22/2003 06/30/19 12 documented as of this encounter (statuses as of 12/29/2023) Immunizations Name Administration Dates Next Due COVID-19 [...] Addendum Note - Brad Piper RPh - 12/29/2023 10:48 AM EDTAddended by: BRAD PIPER on: 12/29/2023 10:48 AM Modules accepted: Orders * Telephone Encounter - Brad Piper RPh - 12/29/2023 10:31 AM EDT Discussed with Dr. Wright who would prefer that patient is scheduled for next cycle once symptoms are worsening. Also discussed issue with infusion center ordering medication after SCP is placed/Langley signed and then subsequent delay for the medication to get delivered patient being unable danielle scheduled until med is delivered. Discussed with nurse clinician oncology at [facility] who suggested placing SCP for multiple cycles with comment noting not to be scheduled until notified by [facility]. Belinda explained that once SCP is entered and Langley is built and signed, med can be ordered in advance even if patient is not yet scheduled. I called and discussed the above with Giorgio and he is agreeable to plan. SCP placed. Will follow up with patient on Tuesday for MG-ADL call as planned. * Telephone Encounter - Saida Adams RN - 12/27/2023 12:54 PM EDT Call placed to patient to verify that he does have two ports, one on the left and one on the right.Per patient he does have two. One they would use for the apheresis and the other one they would give the blood back. Per it is okay to remove both ports on the same day. Patient scheduled for 01-05 at 1300. Patient prefers local numbing only. Patient identified by: name and date of Person taught: Patient METHOD: Lecture-telephone interview PATIENT INSTRUCTIONS GIVEN: - Medication Instructions Reviewed - NPO Instructions Reviewed, pt to stop eating 8 hours prior to procedure and stop drinking 2 hoursprior to procedure. -Psychic Reader required Location and check-in instructions Verbalizes understanding of education: Yes Procedure date at time of Imaging Encounter: 01-05 at 1300 What procedure is patient having? mediport and apheresis port removals Laterality confirmed as Bilateral Does the patient have a yellow bar? did not The Patient was given the opportunity to ask questions concerning the procedure. Signature: Saida Adams RN 12/27/2023 * Telephone Encounter - Eddie George RN - 12/27/2023 11:13 AM EDT Spoke with patient over the phone to schedule mediport removal. Patient states he wants his apharesis port removed also. Dr. Aden notified and states that he will review patient's chart to be sure that both ports are able to be removed at this time. Patient states he will be available by phone after 1200 today 12/27/23 if more information is needed from him. * Telephone Encounter - Brad Piper RP - 12/27/2023 7:[address] Wright - Please see patient message. He would like to schedule next cycle of Vyvgart on day 50. Symptoms are still okay after speaking with him on the phone yesterday (see pharmacy encounterfor details), however, he is worried about not having next cycle scheduled due to scheduling issueslast time and symptoms worsening. Day 50 will be 01/03/24. Should we place orders so that he can be scheduled on/around 01/02? * Telephone Encounter - Mila Aldana LPN - 12/22/2023 2:36 PM EDT Mediport was placed in IR on 03/15/2023 along with placement of a trifusion catheter. * Telephone Encounter - Maksim Wright MD - 12/21/2023 3:52 PM EDT Lucy, Can we see who could help this pt get is mediport out - not sure even who put it in? Apheresis may know if you can't figure it out S documented in this encounter Plan of Treatment Upcoming Encounters Date Type Department Care Team (Late st Contact Info) Description 01/02/2024 1:00 PM EDT Telemedicine Neurology Nathan [address] [place] [phone] Nathan Pharmacist Neurology [address] [facility] [place] [id number] 01/06/2024 12:09 PM EDT Hospital Encounter OR [facility], Operating Room, [facility] - 4th Floor [address] [place] [address] Osvaldo Aden MD [address] [place] [address] 01/06/2024 12:09 PM EDT - 01/06/2024 1:02 PM EDT Surgery OR [facility], Operating Room, [facility] - 4th Floor [address] [place] [address] Osvaldo Aden MD [address] [facility] [place] [address] REMOVAL OF TUNNELED CENTRAL VENOUS ACCESS DEVICE WITH PORT 01/16/2024 9:00 AM EDT Office Visit [facility] 200 [facility] [place] [address] Miriam Marx PA-C 200 [facility] [place] 01/18/2024 11:00 AM EDT Nurse Only Apheresis Clinic, [place] [address] [place] [phone] [facility] Apheresis Nurse, RN [address] [place] [address] 02/02/2024 9:44 AM EDT Hospital Encounter OR [facility], Operating Room [facility] [address] [place] [phone] Andre Swartz MD [facility] [address] [address] 02/02/2024 9:44 AM EDT - 02/02/2024 10:19 AM EDT Surgery OR [facility], Operating Room [facility] [address] [place] [phone] Andre Swartz MD [address] [place] [address] RIGHT EXTRACAPSULAR CATARACT REMOVAL WITH INTRAOCULAR LENS 02/16/2024 9:23 AM EDT Hospital Encounter OR [facility], Operating Room [facility] [address] [place] [phone] Andre Swartz MD [address] [place] [address] 02/16/2024 9:23 AM EDT - 02/16/2024 9:58 AM EDT Surgery OR [facility], Operating Room [facility] [address] [facility] [place] [phone] Andre Swartz MD [address] [address] LEFT EXTRACAPSULAR CATARACT REMOVAL WITH INTRAOCULAR LENS 05/04/2024 9:45 AM EST Office Visit Dermatology [facility] [address] [place] [address] Marshall Henson MD [address] [place] [address] 06/18/2024 11:30 AM EST Office Visit Urology, [facility] [address] [facility] [place] [address] Ramesh Phan MD [address] [id number] 06/22/2024 10:40 AM EST Office Visit Family Practice [facility] [address] [place] [address] Theresa Johnson MD [address] [place] [address] 07/25/2024 11:00 AM EST Office Visit Neurology Nathan [address] [place] [phone] Maksim Wright MD [address] [facility] [place] [address] Scheduled Orders Name Type Priority Associated Diagnoses Orde r Schedule IR VENOUS ACCESS MEDIPORT Medical Imaging Routine Myasthenia gravis (HCC) Expected: 12/29/2023, Expires: 03/23/2024 Scheduled Procedures Name Priority Associated Diagnoses Date/Ti [...] this encounter Medical Devices Implanted Type Area Field Manager Device Identifier Shelf Expiration Date Model / Serial / Lot Port Powerflow 9.6fr - [id number] Implanted:Qty: 1 on 03/15/2023 at [facility] CR BARD : PERIPHERAL VASCULAR [id number] 10/21/2023 [id number] / / [id number] Power Port 8fr Sngl Lumen Plas - [id number] Implanted:Qty: 1 on 03/15/2023 at [facility] CR BARD : PERIPHERAL VASCULAR [id number] 03/22/2024 [id number] / / [id number] documented as of this encounter Visit Diagnoses [...] Documents on File Type Date Recorded Patient Senior Account Representative Expl anation Power of Lease Broker 06/20/2018 POWER OF A TTORNEY POA: EDEL- DAUGHTER, ROBERT-SON Care Teams Horse Doctor Relationship Specialty Start Date End Date Theresa Johnson MD [address] [facility] [place] [address] PCP - General Family Medicine 12/19/23 documented as of this encounter
--- OUTSIDE RECORDS SUMMARY | 2024-06-23 06:21 | External Medical Summary | Summary of Care ---
Author Name Unknown Organization [facility] Address [address] [place] [address] Phone [phone] Care Team Providers Care Circular Clerk Name Role Phone Theresa Johnson MD Primary Care Provider [phone] Reason for Referral * Precert (Within 10 days (routine)) - Authorized Specialty Diagnoses / Procedures Referred By Contac t Referred To Contact Radiology Diagnoses Myasthenia gravis (HCC) Procedures IR VENOUS ACCESS Maksim Olson MD [address] [place] [address] Referral ID Status Reason Start Date Expiration Date V isits Requested Visits Authorized [id number] Authorized 12/29/2023 999 999 Reason for Visit * Reason Onset Date Comments Follow Up 12/21/2023 Order Request 12/21/2023 Adriana/medi port removal Encounter Details Date Type Department Care Team (Late st Contact Info) Description 12/21/2023 Telephone [address] [place] [address] Maksim Wright MD [address] [place] [address] Follow Up (/); Order Request [...] Propionate 50 MCG/ACT Nasal Suspension Administer 1 [place] into nostril in the morning. Active FIBER [...] Telephone Encounter - Paola Caraballo RN - 01/09/2024 9:45 AM EDT [place] is signed. Scheduling: please call patient to schedule 3 hour appt "vrobson 05/26" (Dr Maksim Wright). Thanks! Patient will need this once a week x4. * Telephone Encounter - Paola Caraballo RN - 01/09/2024 9:16 AM EDT [place] plan has not been signed. Re-sent to provider. * Telephone Encounter - Brad Piper RPh - 01/09/2024 9:12 AM EDT Spoke with patient and Dr. Wright - proceeding with next Vyvgart cycle at this time. Please reach out to schedule patient. Thank you! * Telephone Encounter - Paola Caraballo RN - 01/02/2024 9:53 AM EDT Medication available, referral updated. [place] not yet signed. Will need to make sure this is signed before patient is scheduled. Neuro: FYI on above, medication is available whenever patient needs it. * Telephone Encounter - Paola Caraballo RN - 12/29/2023 11:00 AM EDT Order received for vyvgart. Waiting for auth. Faye: can you please order vyvgart to have for when [facility] directs that patient is to be scheduled? Patient will eventually need treatment, but [facility] will let us know when appts are to be scheduled. * Addendum Note - Brad Piper RPh - 12/29/2023 10:48 AM EDTAddended by: BRAD PIPER on: 12/29/2023 10:48 AM Modules accepted: Orders * Telephone Encounter - Brad Piper RPh - 12/29/2023 10:31 AM EDT Discussed with Dr. Wright who would prefer that patient is scheduled for next cycle once symptoms are worsening. Also discussed issue with infusion center ordering medication after SCP is placed/[place] signed and then subsequent delay for the medication to get delivered patient being unable danielle scheduled until med is delivered. Discussed with nurse clinical documentation consultant at [facility] who suggested placing SCP for multiple cycles with comment noting not to be scheduled until notified by [facility]. Belinda explained that once SCP is entered and [place] is built and signed, med can be [...] and stop drinking 2 hoursprior to procedure. -Junior Automation Engineer required Location and check-in instructions Verbalizes understanding [...] him. * Telephone Encounter - Brad Piper RPh - 12/27/2023 7:[address] Wright [...] [place] [phone] Nathan, Pharmacist Neurology [address] [place] [address] Myasthenia gravis (HCC)* 01/16/2024 9:00 AM EDT Office Visit [facility] [address] [facility] [place] [address] Miriam Marx PA-C [address] [facility] [place] [address] 01/18/2024 11:00 AM EDT Nurse Only Apheresis Clinic, Nathan [address] [place] [phone] [place] [facility], RENÉ [address] [place] [address] 02/02/2024 9:44 AM EDT Hospital En[facility] [place] [phone] Andre Swartz MD [address] [address] 02/02/2024 9:44 AM EDT - 02/02/2024 10:19 AM EDT Surgery OR [facility], Operating Room [facility] [address] [address] Andre Swartz MD [address] [address] RIGHT EXTRACAPSULAR CATARACT REMOVAL WITH INTRAOCULAR LENS 02/16/2024 9:23 AM EDT Hospital Encounter OR [facility], Operating Room [facility] [address] [place] [phone] Andre Swartz MD [address] [address] 02/16/2024 9:23 AM EDT - 02/16/2024 9:58 AM EDT Surgery OR [facility], Operating Room [facility] [address] [place] [phone] Andre Swartz MD [address] [place] [address] LEFT EXTRACAPSULAR CATARACT REMOVAL WITH INTRAOCULAR LENS 05/04/2024 9:45 AM EST Office Visit Dermatology [facility] [address] [place] [address] Marshall Henson MD [address] [place] [address] 06/18/2024 11:30 AM EST Office Visit Urology, [facility] [address] [place] [address] Ramesh Phan MD [address] [place] [address] 06/22/2024 10:40 AM EST Office Visit Family Practice [facility] [address] [place] [address] Theresa Johnson MD [address] [place], [place] [address] 07/25/2024 11:00 AM EST Office Visit Neurology Nathan [address] [place] [address] Maksim Wright MD [address] [facility] [place] [address] Scheduled Orders Name Type [...] this encounter Medical Devices Implanted Type Area Night Guard Device Identifier Shelf Expiration Date Model / Serial / Lot Port Powerflow 9.6fr - [id number] Implanted:Qty: 1 on 03/15/2023 at [facility] CR [place]ARD : PERIPHERAL VASCULAR [id number] 10/21/2023 [id number] / / [id number] Power Port 8fr Sngl Lumen Plas - [id number] Implanted:Qty: 1 on 03/15/2023 at [facility] CR BARD : PERIPHERAL VASCULAR [id number] 03/22/2024 [id number] / / [id number] documented as of this encounter Visit Diagnoses Diagnosis Myasthenia gravis (HCC)- Primary Myasthenia gravis without exacerbation Myasthenia gravis (HCC)- Primary Myasthenia gravis without exacerbation Combined forms of age-related cataract of right eye Other and combined forms of senile cataract 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 eye Other and combined forms of senile cataract documented in this encounter Advance Directives Documents on File Type Date Recorded Patient Machine Bander And Cellophaner Helper Expl anation Power of Supervisor Residential 06/20/2018 POWER OF A TTORNEY POA: EDEL- DAUGHTER, ROBERT-SON Care Teams Circular Clerk Relationship Specialty Start Date End Date Theresa Johnson MD [address] [facility] [place] [address] PCP - General Family Medicine 12/19/23 documented as of this encounter
--- OUTSIDE RECORDS SUMMARY | 2024-06-23 06:21 | External Medical Summary | Summary of Care ---
Author Name Unknown Organization [facility] Address [address] [place] [address] Phone [phone] Care Team Providers Care Corridor Redevelopment Manager Name Role Phone Theresa Johnson MD Primary Care Provider [phone] Reason for Referral * Precert (Within 10 days (routine)) - Authorized Specialty Diagnoses / Procedures Referred By Contac t Referred To Contact Radiology Diagnoses Myasthenia gravis (HCC) Procedures IR VENOUS ACCESS Maksim Olson MD [address] [place] [address] Referral ID Status Reason Start Date Expiration Date V isits Requested Visits Authorized [id number] Authorized 12/29/2023 999 999 Reason for Visit * Reason Onset Date Comments Follow Up 12/21/2023 Order Request 12/21/2023 Adriana/medi port removal Encounter Details Date Type Department Care Team (Late st Contact Info) Description 12/21/2023 Telephone [address] [place] [address] Maksim Wright MD [address] [place] [address] Follow Up (/); Order Request [...] Propionate 50 MCG/ACT Nasal Suspension Administer 1 [place] into nostril in the morning. Active FIBER [...] Notes * Telephone Encounter - Brad Piper RPh - 01/09/2024 9:12 AM EDT Spoke with patient and Dr. Wright - proceeding with next Vyvgart cycle at this time. Please reach out to schedule patient. Thank you! * Telephone Encounter - Paola Caraballo RN - 01/02/2024 9:53 AM EDT Medication available, referral updated. [place] not yet signed. Will need to make sure this is signed before patient is scheduled. Neuro: FYI on above, medication is available whenever patient needs it. * Telephone Encounter - Paola Caraballo RN - 12/29/2023 11:00 AM EDT Order received for vyvgart. Waiting for cesarMarlo Faye: can you please order vyvgart to have for when [facility] directs that patient is to be scheduled? Patient will eventually need treatment, but [facility] will let us know when appts are [...] infusion center ordering medication after SCP is placed/[place] signed and then subsequent delay for the medication to get delivered patient being unable danielle scheduled until med is delivered. Discussed with nurse clinical cytogeneticist at [facility] who suggested placing SCP for multiple cycles with comment noting not to be scheduled until notified by [facility]. Belinda explained that once SCP is entered and [place] is built and signed, med can be [...] and stop drinking 2 hoursprior to procedure. -Supervisor Abattoir required Location and check-in instructions Verbalizes understanding [...] Description 01/09/2024 1:00 PM EDT Telemedicine Neurology [facility] [place] [address] [place] [address] [address] Nathan, Pharmacist Neurology [address] [place], [place] [id number] Myasthenia gravis (HCC)* 01/16/2024 9:00 AM EDT Office Visit Family Practice [facility] [place] [address] [place] [address] Miriam Marx PA-C [address] [place] [address] 01/18/2024 11:00 AM EDT [facility] [phone] Nathan Apheresis Nurse, RN [address] [place] [address] 02/02/2024 9:44 AM EDT Hospital Encounter OR [facility], Operating Room [facility] [address] [place] [address] Andre Swartz MD [address] [address] 02/02/2024 9:44 AM EDT - 02/02/2024 10:19 AM EDT Surgery OR [facility], Operating Room [facility] [address] [place] [address] Andre Swartz MD [address] [address] RIGHT EXTRACAPSULAR CATARACT REMOVAL WITH INTRAOCULAR LENS 02/16/2024 9:23 AM EDT Hospital Encounter OR [facility], Operating Room [facility] [address] [place] [address] Andre Swartz MD [address] [address] 02/16/2024 9:23 AM EDT - 02/16/2024 9:58 AM EDT Surgery OR [facility], Operating Room [facility] [address] [place] [address] Andre Swartz MD [address] [address] LEFT EXTRACAPSULAR CATARACT REMOVAL WITH INTRAOCULAR LENS 05/04/2024 9:45 AM EST Office Visit Dermatology [facility] [place] [address] [place] [address] Marshall Henson MD [address] [place] [address] 06/18/2024 11:30 AM EST Office Visit Urology, [facility] [address] [place] [address] Ramesh Phan MD [address] [place] [address] 06/22/2024 10:40 AM EST Office Visit Family Practice [facility] 200 [place] [address] Theresa Johnson MD [address] [place] [address] 07/25/2024 11:00 AM EST Office Visit Neurology [facility] [place] [address] [place] [address] Maksim Wright MD [address] [facility] [place] [address] Scheduled Orders [...] this encounter Medical Devices Implanted Type Area Nutrition Instructor Device Identifier Shelf Expiration Date Model / Serial / Lot Port Powerflow 9.6fr - [id number] Implanted:Qty: 1 on 03/15/2023 at [facility] CR BARD : PERIPHERAL VASCULAR [id number] 10/21/2023 [id number] / / [id number] Power Port 8fr Sngl Lumen Plas - [id number] Implanted:Qty: 1 on 03/15/2023 at [facility] CR BARD : PERIPHERAL VASCULAR [id number] 03/22/2024 [id number] / / [id number] documented as of this encounter Visit Diagnoses [...] Documents on File Type Date Recorded Patient Call Center Associate Expl anation Power of Psychologist Military Personnel 06/20/2018 POWER OF A TTORNEY POA: EDEL- DAUGHTER, ROBERT-SON Care Teams Corridor Redevelopment Manager Relationship Specialty Start Date End Date Theresa Johnson MD [address] [facility] [place], [place] [id number] PCP - General Family Medicine 12/19/23 documented as of this encounter
--- OUTSIDE RECORDS SUMMARY | 2024-06-23 06:21 | External Medical Summary | Summary of Care ---
Author Name Unknown Organization [facility] Address [address] [place] [address] Phone [phone] Care Team Providers Care Assistant Construction Superintendent Name Role Phone Theresa Johnson MD Primary Care Provider [phone] Reason for Referral * Precert (Within 10 days (routine)) - Authorized Specialty Diagnoses / Procedures Referred By Contac t Referred To Contact Radiology Diagnoses Myasthenia gravis (HCC) Procedures IR VENOUS ACCESS Maksim Olson MD [address] [place] [address] Referral ID Status Reason Start Date Expiration Date V isits Requested Visits Authorized [id number] Authorized 12/29/2023 999 999 Reason for Visit * Reason Onset Date Comments Follow Up 12/21/2023 Order Request 12/21/2023 Adriana/medi port removal Encounter Details Date Type Department Care Team (Late st Contact Info) Description 12/21/2023 Telephone Neurology [address] [place] [address] Maksim Wright MD [address] [place] [address] Follow Up (/); Order Request [...] Propionate 50 MCG/ACT Nasal Suspension Administer 1 [place] into nostril in the morning. Active FIBER [...] Caraballo RN - 01/09/2024 9:16 AM EDT [place] plan has not been signed. Re-sent to provider. * Telephone Encounter - Brad Piper RPh - 01/09/2024 9:12 AM EDT Spoke with patient and Dr. Wright - proceeding with next Vyvgart cycle at this time. Please reach out to schedule patient. Thank you! * Telephone Encounter - Paola Caraballo RN - 01/02/2024 9:53 AM EDT Medication available, referral updated. [place] not yet signed. Will need to make [...] infusion center ordering medication after SCP is placed/[place] signed and then subsequent delay for the medication to get delivered patient being unable danielle scheduled until med is delivered. Discussed with nurse clinical courier at [facility] who suggested placing SCP for multiple cycles with comment noting not to be scheduled until notified by [facility]. Belinda explained that once SCP is entered and [place] is built and signed, med can be [...] and stop drinking 2 hoursprior to procedure. -Brain Wave Technician required Location and check-in instructions Verbalizes understanding [...] [address] [place] [phone] Nathan, Pharmacist Neurology [address] [facility] [place] [address] Myasthenia gravis (HCC)* 01/16/2024 9:00 AM EDT Office Visit Family Practice [facility] [place] [address] [place] [address] Miriam Marx PA-C [address] [place] [address] 01/18/2024 11:00 AM EDT Nurse Only Apheresis Clinic, Nathan [address] [facility] [place] [address] Nathan Apheresis Nurse, RENÉ [address] [facility] [place] [address] 02/02/2024 9:44 AM EDT Hospital Encounter OR [facility], Operating Room [facility] [address] [place] [address] Andre Swartz MD [address] [address] 02/02/2024 9:44 AM EDT - 02/02/2024 10:19 AM EDT Surgery OR [facility], Operating Room [facility]SS [address] [place] [phone] Andre Swartz MD [address] [address] RIGHT EXTRACAPSULAR CATARACT REMOVAL WITH INTRAOCULAR LENS 02/16/2024 9:23 AM EDT Hospital Encounter OR [facility], Operating Room [facility] [address] [place] [phone] Andre Swartz MD [address] [address] 02/16/2024 9:23 AM EDT - 02/16/2024 9:58 AM EDT Surgery OR [facility], Operating Room OSS [address] [place] [phone] Andre Swartz MD [address] [address] LEFT EXTRACAPSULAR CATARACT REMOVAL WITH INTRAOCULAR LENS 05/04/2024 9:45 AM EST Office Visit Dermatology [facility] [address] [place] [address] Marshall Henson MD [address] [place] [address] 06/18/2024 11:30 AM EST Office Visit Urology, [facility] 132 [facility] [place] [address] Ramesh Phan MD [address] [place] [address] 06/22/2024 10:40 AM EST Office Visit Family Practice [facility] [address] [place] [address] Theresa Johnson MD 200 [facility] [place] [address] 07/25/2024 11:00 AM EST Office Visit Neurology [address] [place] [address] Maksim Wright MD [address] [facility] [place] [address] Scheduled Orders Name Type Priority Associated [...] this encounter Medical Devices Implanted Type Area Automobile Assembler Device Identifier Shelf Expiration Date Model / Serial / Lot Port Powerflow 9.6fr - [id number] Implanted:Qty: 1 on 03/15/2023 at [facility] CR BARD : PERIPHERAL VASCULAR [id number] 10/21/2023 [id number] / / [id number] Power Port 8fr Sngl Lumen Plas - [id number] Implanted:Qty: 1 on 03/15/2023 at [facility] CR BARD : PERIPHERAL VASCULAR [id number] 03/22/2024 [id number] / / [id number] documented as of this encounter Visit Diagnoses [...] on File Type Date Recorded Patient Hand Embroiderer Expl anation Power of Timber Deadener 06/20/2018 POWER OF A TTORNEY POA: EDEL- DAUGHTER, ROBERT-SON Care Teams Assistant Construction Superintendent Relationship Specialty Start Date End Date Theresa Johnson MD 200 [facility] [place] [address] PCP - General Family Medicine 12/19/23 documented as of this encounter
--- OUTSIDE RECORDS SUMMARY | 2024-06-23 06:21 | External Medical Summary | Summary of Care ---
Author Name Unknown Organization [facility] Address [address] [place] [address] Phone [phone] Care Team Providers Care Box Office Agent Name Role Phone Theresa Johnson MD Primary Care Provider [phone] Reason for Referral * Precert (Within 10 days (routine)) - Authorized Specialty Diagnoses / Procedures Referred By Contac t Referred To Contact Radiology Diagnoses Myasthenia gravis (HCC) Procedures IR VENOUS ACCESS Maksim Olson MD [address] [place] [address] Referral ID Status Reason Start Date Expiration Date V isits Requested Visits Authorized [id number] Authorized 12/29/2023 999 999 Reason for Visit * Reason Onset Date Comments Follow Up 12/21/2023 Order Request 12/21/2023 Adriana/medi port removal Encounter Details Date Type Department Care Team (Late st Contact Info) Description 12/21/2023 Telephone Neurology [address] [place] [address] Maksim Wright MD [address] [place] [address] Follow Up (/); Order Request [...] Propionate 50 MCG/ACT Nasal Suspension Administer 1 [place] into nostril in the morning. Active FIBER [...] 9:53 AM EDT Medication available, referral updated. [place] not yet signed. Will need to make sure this is signed before patient is scheduled. Neuro: FYI on above, medication is available whenever patient needs it. * Telephone Encounter - Paola Caraballo RN - 12/29/2023 11:00 AM EDT Order received for vyvgart. Waiting for auth. Faye: can you please order [email or web address] to have for when [facility] directs that patient is to be scheduled? Patient will eventually need treatment, but [facility] will let us know when [...] infusion center ordering medication after SCP is placed/[place] signed and then subsequent delay for the medication to get delivered patient being unable danielle scheduled until med is delivered. Discussed with nurse director clinical research at [facility] who suggested placing SCP for multiple cycles with comment noting not to be scheduled until notified by [facility]. Belinda explained that once SCP is entered and [place] is built and signed, med can be [...] on the same day. Patient scheduled for 8-16 at 1300. Patient prefers local numbing only. Patient identified by: name and date of Person taught: Patient METHOD: Lecture-telephone interview PATIENT INSTRUCTIONS GIVEN: - Medication Instructions Reviewed - NPO Instructions Reviewed, pt to stop eating 8 hours prior to procedure and stop drinking 2 hoursprior to procedure. -Room Service Food Service Attendant required Location and check-in instructions Verbalizes understanding [...] [address] [place] [phone] Nathan, Pharmacist Neurology 100 [facility] [address] [address] [address] 01/06/2024 12:09 PM EDT Hospital Encounter OR [facility], Operating Room, [facility] - 4th Floor [address] [place] [address] Osvaldo Aden MD [address] [place] [address] 01/06/2024 12:09 PM EDT - 01/06/2024 1:02 PM EDT Surgery OR [facility], Operating Room, [facility] - 4th Floor [address] [place] [address] Osvaldo Aden MD [address] [place] [address] [place] [address] REMOVAL OF TUNNELED CENTRAL VENOUS ACCESS DEVICE WITH PORT 01/16/2024 9:00 AM EDT Office Visit [facility] Tory Hoang [address] [place] [address] Miriam Marx PA-C [address] [facility] [place] [address] 01/18/2024 11:00 AM EDT Nurse Only Apheresis Clinic, Nathan [address] [place] [address] [place], Apheresis Nurse, RENÉ [address] [place] [facility] [place] [address] 02/02/2024 9:44 AM EDT Hospital Encounter OR [facility], Operating Room OSS [address] [place] [phone] Andre Swartz MD [address] [address] 02/02/2024 9:44 AM EDT - 02/02/2024 10:19 AM EDT Surgery OR [facility], Operating Room OSS [address] [facility] [place] [address] Andre Swartz MD [address] [address] RIGHT EXTRACAPSULAR CATARACT REMOVAL WITH INTRAOCULAR LENS 02/16/2024 9:23 AM EDT Hospital Encounter OR [facility], Operating Room [facility] [address] [facility] [place] [address] Andre Swartz MD [address] [address] 02/16/2024 9:23 AM EDT - 02/16/2024 9:58 AM EDT Surgery OR [facility], Operating Room OSS [address] [place] [phone] Andre Swartz MD [address] [address] LEFT EXTRACAPSULAR CATARACT REMOVAL WITH INTRAOCULAR LENS 05/04/2024 9:45 AM EST Office Visit Dermatology [facility] [address] [place] [address] Marshall Henson MD [address] [place] [address] 06/18/2024 11:30 AM EST Office Visit Urology, [facility] 132 [facility] [place] [address] Ramesh Phan MD [address] [place] [address] 06/22/2024 10:40 AM EST Office Visit Family Practice [facility] [address] [place] [address] Theresa Johnson MD [address] [place] [address] 07/25/2024 11:00 AM EST Office Visit Neurology [address] [place] [address] Maksim Wright MD [address] [facility] [place] [address] Scheduled Orders [...] this encounter Medical Devices Implanted Type Area Airport Traffic Controller Device Identifier Shelf Expiration Date Model / Serial / Lot Port Powerflow 9.6fr - [id number] Implanted:Qty: 1 on 03/15/2023 at [facility] CR BARD : PERIPHERAL VASCULAR [id number] 10/21/2023 [id number] / / [id number] Power Port 8fr Sngl Lumen Plas - [id number] Implanted:Qty: 1 on 03/15/2023 at [facility] CR BARD : PERIPHERAL VASCULAR [id number] 03/22/2024 [id number] / / [id number] documented as of this encounter Visit Diagnoses [...] on File Type Date Recorded Patient Film Examiner Expl anation Power of Glacing Machine Tender 06/20/2018 POWER OF A TTORNEY POA: EDEL- DAUGHTER, ROBERT-SON Care Teams Box Office Agent Relationship Specialty Start Date End Date Theresa Johnson MD 200 [place] [address] PCP - General Family Medicine 12/19/23 documented as of this encounter
--- OUTSIDE RECORDS SUMMARY | 2024-06-23 06:21 | External Medical Summary | Summary of Care ---
Author Name Unknown Organization [facility] Address [address] [place] [address] Phone [phone] Care Team Providers Care Soap Grinder Name Role Phone Theresa Johnosn MD Primary Care Provider [phone] Reason for Referral * Precert (Within 10 days (routine)) - Authorized Specialty Diagnoses / Procedures Referred By Contac t Referred To Contact Radiology Diagnoses Myasthenia gravis (HCC) Procedures IR VENOUS ACCESS Maksim Olson MD [address] [place] [address] Referral ID Status Reason Start Date Expiration Date V isits Requested Visits Authorized [id number] Authorized 12/29/2023 999 999 Reason for Visit * Reason Onset Date Comments Follow Up 12/21/2023 Order Request 12/21/2023 Adriana/medi port removal Encounter Details Date Type Department Care Team (Late st Contact Info) Description 12/21/[address] [place] [address] Maksim Wright MD [address] [place] [address] Follow Up (/); Order Request [...] Propionate 50 MCG/ACT Nasal Suspension Administer 1 [place] into nostril in the morning. Active FIBER [...] scheduled. * Addendum Note - Brad Piper [facility] - 12/29/2023 10:48 AM EDTAddended by: BRAD PIPER on: 12/29/2023 10:48 AM Modules accepted: Orders * Telephone Encounter - Brad Piper RPh - 12/29/2023 10:31 AM EDT Discussed with Dr. Wright who would prefer that patient is scheduled for next cycle once symptoms are worsening. Also discussed issue with infusion center ordering medication after SCP is placed/[place] signed and then subsequent delay for the medication to get delivered patient being unable danielle scheduled until med is delivered. Discussed with nurse clinic clerk at [facility] who suggested placing SCP for multiple cycles with comment noting not to be scheduled until notified by [facility]. Belinda explained that once SCP is entered and [place] is built and signed, med can be [...] and stop drinking 2 hoursprior to procedure. -Zigzag Machine Operator required Location and check-in instructions Verbalizes understanding [...] Description 01/02/2024 1:00 PM EDT Telemedicine Neurology [address], [place] [address] [place] [phone] Nathan, Pharmacist Neurology [address] [facility] [address] [address] 01/06/2024 12:09 PM EDT Hospital Encounter OR [facility], Operating Room, [facility] - 4th Floor [address] [place] [address] Osvaldo Aden MD 400 [facility] [place] [address] 01/06/2024 12:09 PM EDT - 01/06/2024 1:02 PM EDT Surgery OR [facility], Operating Room, [facility] - 4th Floor [address] [place] [address] Osvaldo Aden MD [address] [place] [address] REMOVAL OF TUNNELED CENTRAL VENOUS ACCESS DEVICE WITH PORT 01/16/2024 9:00 AM EDT Office Visit Family [facility] Iam Velas[address] [place] [address] [place] [address] Miriam Marx PA-C [address] [place] [address] 01/18/2024 11:00 AM EDT Nurse Only Apheresis Clinic, Nathan [address] [address] [phone] Nathan Apheresis Nurse, RN [address] [address] [id number] 02/02/2024 9:44 AM EDT Hospital Encounter OR [facility], Operating Room [facility] [address] [place] [address] Andre Swartz MD [address] [address] 02/02/2024 9:44 AM EDT - 02/02/2024 10:19 AM EDT Surgery OR [facility], Operating Room [facility] [address] [place] [address] Andre Swartz MD [address] [place] [address] RIGHT EXTRACAPSULAR CATARACT REMOVAL WITH INTRAOCULAR LENS 02/16/2024 9:23 AM EDT Hospital Encounter OR [facility], Operating Room [facility] [address] [place] [address] Andre Swartz MD [address] [place] [address] 02/16/2024 9:23 AM EDT - 02/16/2024 9:58 AM EDT Surgery OR [facility], Operating Room [facility] [address] [place] [address] Andre Swartz MD [address] [address] LEFT EXTRACAPSULAR CATARACT REMOVAL WITH INTRAOCULAR LENS 05/04/2024 9:45 AM EST Office [facility] [address] [place] [address] Marshall Henson MD [address] [place] [address] 06/18/2024 11:30 AM EST Office Visit Urology, [facility] [address] [place] [address] Ramesh Phan MD [address] [address] 06/22/2024 10:40 AM EST Office Visit [facility] [address] [place] [address] Theresa Johnson MD 200 [facility] [place] [address] 07/25/2024 11:00 AM EST Office Visit Neurology Nathan [address] [place] [address] Maksim Wright MD [address] [facility] [place] [address] Scheduled Orders Name [...] this encounter Medical Devices Implanted Type Area Cheese Cooker Device Identifier Shelf Expiration Date Model / Serial / Lot Port Powerflow 9.6fr - [id number] Implanted:Qty: 1 on 03/15/2023 at [facility] CR BARD : PERIPHERAL VASCULAR [id number] 10/21/2023 [id number] / / [id number] Power Port 8fr Sngl Lumen Plas - [id number] Implanted:Qty: 1 on 03/15/2023 at [facility] CR BARD : PERIPHERAL VASCULAR [id number] 03/22/2024 [id number] / / [id number] documented as of this encounter Visit Diagnoses [...] Documents on File Type Date Recorded Patient Photoengraving Etcher Apprentice Expl anation Power of Health Education Coordinator 06/20/2018 POWER OF A TTORNEY POA: EDEL- DAUGHTER, ROBERT-SON Care Teams Soap Grinder Relationship Specialty Start Date End Date Theresa Johnson MD [address] [place] [address] PCP - General Family Medicine 12/19/23 documented as of this encounter
--- OUTSIDE RECORDS SUMMARY | 2024-06-23 06:21 | External Medical Summary | Summary of Care ---
Author Name Unknown Organization [facility] Address [address] [place] [address] Phone [phone] Care Team Providers Care Sanding Machine Tender Automatic Name Role Phone Theresa Johnson MD Primary Care Provider [phone] Reason for Referral * Precert (Within 10 days (routine)) - Authorized Specialty Diagnoses / Procedures Referred By Contac t Referred To Contact Radiology Diagnoses Myasthenia gravis (HCC) Procedures IR VENOUS ACCESS Maksim Olson MD [address] [place] [address] Referral ID Status Reason Start Date Expiration Date V isits Requested Visits Authorized [id number] Authorized 12/29/2023 999 999 Reason for Visit * Reason Onset Date Comments Follow Up 12/21/2023 Order Request 12/21/2023 Adriana/medi port removal Encounter Details Date Type Department Care Team (Late st Contact Info) Description 12/21/2023 Telephone [address] [place] [address] Maksim Wright MD [address] [place] [address] Follow Up (/); Order Request [...] Propionate 50 MCG/ACT Nasal Suspension Administer 1 [place] into nostril in the morning. Active FIBER [...] Telephone Encounter - Gladis Louise OSA - 01/09/2024 10:42 AM EDT Apts are scheduled and pt is aware * Telephone Encounter - Paola Caraballo RN - 01/09/2024 9:45 AM EDT [place] is signed. Scheduling: please call patient to schedule 3 hour appt "vyvgart 05/26" (Dr Maksim Wright). Thanks! Patient will need this once a week x4. * Telephone Encounter - Paola Caraballo RN - 01/09/2024 9:16 AM EDT [place] plan has not been signed. Re-sent to provider. * Telephone Encounter - Brad Piper RPh - 01/09/2024 9:12 AM EDT Spoke with patient and Dr. Wright - proceeding with next Vyvgart cycle at this time. Please reach out to schedule patient. Thank you! * Telephone Encounter - Paola Caraballo RN - 01/02/2024 9:53 AM EDT Medication available, referral updated. [place] not yet signed. Will need to make [...] infusion center ordering medication after SCP is placed/[place] signed and then subsequent delay for the medication to get delivered patient being unable danielle scheduled until med is delivered. Discussed with nurse speech and hearing clinic director at [facility] who suggested placing SCP for multiple cycles with comment noting not to be scheduled until notified by [facility]. Bleinda explained that once SCP is entered and [place] is built and signed, med can be [...] and stop drinking 2 hoursprior to procedure. -Penology Professor required Location and check-in instructions Verbalizes understanding of education: Yes Procedure date at time of Imaging Encounter: 01-05 at 1300 What procedure is patient having? mediport and apheresis port removals Laterality confirmed as Bilateral Does the patient have a yellow bar? did not The Patient was given the opportunity to ask questions concerning the procedure. Signature: Saiad Adams RN 12/27/2023 * Telephone Encounter - [...] [place] [phone] Nathan, Pharmacist Neurology [address] [place], [place] [id number] Myasthenia gravis (HCC)* 01/12/2024 1:30 PM EDT Hem/Onc Treatment Hematology/Oncolo gy Treatment, [address], [place] [phone] Krista, Chair 2 Hem Onc [address] [place] [address] 01/16/2024 9:00 AM EDT Office Visit [facility] Krista [place] 200 [facility] [place] [address] Miriam Marx PA-C 200 [facility] [place] [address] 01/18/2024 11:00 AM EDT Nurse Only [facility]heresis [facility], Nathan [address] [facility] [phone] Nathan, Apheresis Nurse, RN [address] [facility], [place] [phone] 01/19/2024 1:00 PM EDT Hem/Onc Treatment Hematology/Oncolo gy Treatment, [address] [place] [phone] Krista, Chair [address] [place] [address] 01/26/2024 1:00 PM EDT Hem/Onc Treatment Hematology/Oncolo gy Treatment, [address], [place] [phone] Krista, Chair 9 Hem Onc [address] [place] [address] 02/01/2024 12:30 PM EDT Hem/Onc Treatment Hematology/Oncolo gy Treatment, [place] [address] [place] [phone] Krista, Chair 2 Hem Onc Scenery [address] [facility] [place] [address] 02/02/2024 9:44 AM EDT Hospital Encounter OR [facility], Operating Room [facility] [address] [place], [place] [address] Andre Swartz MD [address] [place] [address] 02/02/2024 9:44 AM EDT - 02/02/2024 10:19 AM EDT Surgery OR [facility], Operating Room [facility] [address] [place] [address] Andre Swartz MD [address] [place] [address] RIGHT EXTRACAPSULAR CATARACT REMOVAL WITH INTRAOCULAR LENS 02/16/2024 9:23 AM EDT Hospital Encounter OR [facility], Operating Room [facility] [address] [place], [place] [address] Andre Swartz MD [address] [place] [address] 02/16/2024 9:23 AM EDT - 02/16/2024 9:58 AM EDT Surgery OR [facility], Operating Room [facility] [address] [place] [address] Andre Swartz MD [address] [place] [address] LEFT EXTRACAPSULAR CATARACT REMOVAL WITH INTRAOCULAR LENS 05/04/2024 9:45 AM EST Office Visit Dermatology [facility] [address] [place] [address] Marshall Henson MD [address] [place] [address] 06/18/2024 11:30 AM EST Office Visit Urology, [facility] [address] [place] [address] Ramesh Phan MD [address] [address] 06/22/2024 10:40 AM EST Office Visit Family Practice [facility] [address] [place] [address] Theresa Johnson MD [address] [place] [address] 07/25/2024 11:00 AM EST Office Visit Neurology Nathan [address] [place] [address] Maksim Wright MD [address] [place] [address] Scheduled Orders Name Type Priority Associated [...] this encounter Medical Devices Implanted Type Area Tape Cutter Device Identifier Shelf Expiration Date Model / Serial / Lot Port Powerflow 9.6fr - [id number] Implanted:Qty: 1 on 03/15/2023 at [facility] CR BARD : PERIPHERAL VASCULAR [id number] 10/21/2023 [id number] / / [id number] Power Port 8fr Sngl Lumen Plas - [id number] Implanted:Qty: 1 on 03/15/2023 at [facility] CR BARD : PERIPHERAL VASCULAR [id number] 03/22/2024 [id number] / / [id number] documented as of this encounter Visit Diagnoses [...] Documents on File Type Date Recorded Patient Vending Service Technician Expl anation Power of Instructor Physical Education 06/20/2018 POWER OF A TTORNEY POA: EDEL- DAUGHTER, ROBERT-SON Care Teams Sanding Machine Tender Automatic Relationship Specialty Start Date End Date Theresa Johnson MD 200 [facility] [place] [address] PCP - General Family Medicine 12/19/23 documented as of this encounter
--- OUTSIDE RECORDS SUMMARY | 2024-06-23 06:21 | External Medical Summary | Summary of Care ---
Author Name Unknown Organization [facility] Address [address] [place] [address] Phone [phone] Care Team Providers Care Chorus Dancer Name Role Phone Theresa Johnson MD Primary Care Provider [phone] Reason for Referral * Precert (Within 10 days (routine)) - Authorized Specialty Diagnoses / Procedures Referred By Contac t Referred To Contact Radiology Diagnoses Myasthenia gravis (HCC) Procedures IR VENOUS ACCESS Maksim Olson MD [address] [place] [address] Referral ID Status Reason Start Date Expiration Date V isits Requested Visits Authorized [id number] Authorized 12/29/2023 999 999 Reason for Visit * Reason Onset Date Comments Follow Up 12/21/2023 Order Request 12/21/2023 Adriana/medi port removal Encounter Details Date Type Department Care Team (Late st Contact Info) Description 12/21/2023 Telephone [address] [place] [address] Maksim Wright MD [address] [place] [address] Follow Up (/); Order Request [...] Propionate 50 MCG/ACT Nasal Suspension Administer 1 [place] into nostril in the morning. Active FIBER [...] scheduled. * Addendum Note - Brad Piper [facility] - 12/29/2023 10:48 AM EDTAddended by: BRAD PIPER on: 12/29/2023 10:48 AM Modules accepted: Orders * Telephone Encounter - Brad Piper RPh - 12/29/2023 10:31 AM EDT Discussed with Dr. Wright who would prefer that patient is scheduled for next cycle once symptoms are worsening. Also discussed issue with infusion center ordering medication after SCP is placed/[place] signed and then subsequent delay for the medication to get delivered patient being unable danielle scheduled until med is delivered. Discussed with nurse clinical technician at [facility] who suggested placing SCP for multiple cycles with comment noting not to be scheduled until notified by [facility]. Belinda explained that once SCP is entered and [place] is built and signed, med can be [...] and stop drinking 2 hoursprior to procedure. -Stogie Packer required Location and check-in instructions Verbalizes understanding [...] 1:00 PM EDT Telemedicine Neurology [address]enny John, [place] [address] [place] [address] [phone] Nathan, Pharmacist Neurology [address] [facility] [address] [address] 01/06/2024 12:09 PM EDT Hospital Encounter OR [facility], Operating Room, [facility] - 4th Floor [address] [place] [address] Osvaldo Aden MD 400 [facility] [place] [address] 01/06/2024 12:09 PM EDT - 01/06/2024 1:02 PM EDT Surgery OR [facility], Operating Room, [facility] - 4th Floor [address] [place] [address] Osvaldo Aden MD [address] [place] [address] REMOVAL OF TUNNELED CENTRAL VENOUS ACCESS DEVICE WITH PORT 01/16/2024 9:00 AM EDT Office Visit Family [facility] Iam Velas[address] [place] [address] [place] [address] Miriam Marx PA-C [address] [place] [address] 01/18/2024 11:00 AM EDT Nurse Only Apheresis Clinic, Nathan [address] [address] [phone] Nathan Apheresis Nurse, RN [address] [place] [address] [id number] 02/02/2024 9:44 AM EDT Hospital Encounter OR [facility], Operating Room [facility] [address] [place] [address] Andre Swartz MD [address] [address] 02/02/2024 9:44 AM EDT - 02/02/2024 10:19 AM EDT Surgery OR [facility], Operating Room [facility] [address] [place] [address] Andre Swartz MD [address] [place] [address] RIGHT EXTRACAPSULAR CATARACT REMOVAL WITH INTRAOCULAR LENS 02/16/2024 9:23 AM EDT Hospital Encounter OR [facility], Operating Room [facility] [address] [place] [address] Andre Swartz MD [address] [place] [address] 02/16/2024 9:23 AM EDT - 02/16/2024 9:58 AM EDT Surgery OR [facility], Operating Room [facility] [address] [place] [address] Andre Swartz MD [address] [address] LEFT EXTRACAPSULAR CATARACT REMOVAL WITH INTRAOCULAR LENS 05/04/2024 9:45 AM EST Office [facility] [address] [place] [address] Marshall Henson MD [address] [place] [address] 06/18/2024 11:30 AM EST Office Visit Urology, [facility] [address] [place] [address] Ramesh Phan MD [address] [address] 06/22/2024 10:40 AM EST Office Visit [facility] [address] [place] [address] Theresa Johnson MD [address] [place] [address] 07/25/2024 11:00 AM EST Office Visit Neurology [address] [place] [address] Maksim Wright MD [address] [facility] [place] [address] Scheduled Orders [...] this encounter Medical Devices Implanted Type Area Grain Weigher Device Identifier Shelf Expiration Date Model / Serial / Lot Port Powerflow 9.6fr - [id number] Implanted:Qty: 1 on 03/15/2023 at [facility] CR BARD : PERIPHERAL VASCULAR [id number] 10/21/2023 [id number] / / [id number] Power Port 8fr Sngl Lumen Plas - [id number] Implanted:Qty: 1 on 03/15/2023 at [facility] CR BARD : PERIPHERAL VASCULAR [id number] 03/22/2024 [id number] / / [id number] documented as of this encounter Visit Diagnoses [...] Documents on File Type Date Recorded Patient Kiln Furniture Saw Tender Expl anation Power of World Language Teacher 06/20/2018 POWER OF A TTORNEY POA: EDEL- DAUGHTER, ROBERT-SON Care Teams Chorus Dancer Relationship Specialty Start Date End Date Theresa Johnson MD [address] [place] [address] PCP - General Family Medicine 12/19/23 documented as of this encounter
--- OUTSIDE RECORDS SUMMARY | 2024-06-23 06:21 | External Medical Summary | Summary of Care ---
Author Name Unknown Organization [facility] Address [address] [place] [address] Phone [phone] Care Team Providers Care Resident Intern Name Role Phone Theresa Johnson MD Primary Care Provider [phone] Reason for Referral * Precert (Within 10 days (routine)) - Authorized Specialty Diagnoses / Procedures Referred By Contac t Referred To Contact Radiology Diagnoses Myasthenia gravis (HCC) Procedures IR VENOUS ACCESS Maksim Olson MD [address] [place] [address] Referral ID Status Reason Start Date Expiration Date V isits Requested Visits Authorized [id number] Authorized 12/29/2023 999 999 Reason for Visit * Reason Onset Date Comments Follow Up 12/21/2023 Order Request 12/21/2023 Adriana/medi port removal Encounter Details Date Type Department Care Team (Late st Contact Info) Description 12/21/2023 Telephone Neurology [address] [place] [address] Maksim Wright MD [address] [place] [address] Follow Up (/); Order Request [...] Propionate 50 MCG/ACT Nasal Suspension Administer 1 [place] into nostril in the morning. Active FIBER [...] Caraballo RN - 01/09/2024 9:16 AM EDT [place] plan has not been signed. Re-sent to provider. * Telephone Encounter - Brad Piper RPh - 01/09/2024 9:12 AM EDT Spoke with patient and Dr. Wright - proceeding with next Vyvgart cycle at this time. Please reach out to schedule patient. Thank you! * Telephone Encounter - Paola Caraballo RN - 01/02/2024 9:53 AM EDT Medication available, referral updated. [place] not yet signed. Will need to make [...] infusion center ordering medication after SCP is placed/[place] signed and then subsequent delay for the medication to get delivered patient being unable danielle scheduled until med is delivered. Discussed with nurse clinical engineering manager at [facility] who suggested placing SCP for multiple cycles with comment noting not to be scheduled until notified by [facility]. Belinda explained that once SCP is entered and [place] is built and signed, med can be [...] and stop drinking 2 hoursprior to procedure. -Graphics Intern required Location and check-in instructions Verbalizes understanding [...] Adams RN 12/27/2023 * Telephone Encounter - Edide George RN - 12/27/2023 11:13 AM EDT [...] [address] [place] [phone] Nathan, Pharmacist Neurology 100 [address] [facility] [place] [address] Myasthenia gravis (HCC)* 01/16/2024 9:00 AM EDT Office Visit Family Practice Iam Velasco [place] [address] [place] [address] Miriam Marx PA-C [address] [place] [address] 01/18/2024 11:00 AM EDT Nurse Only Apheresis Clinic, Nathan [address] [place] [facility] [place] [address] Nathan Apheresis Nurse, RENÉ [address] [place] [facility] [place] [address] 02/02/2024 9:44 AM EDT Hospital Encounter [facility], Operating Room [facility] [address] [place] [address] Andre Swartz MD [address] [address] 02/02/2024 9:44 AM EDT - 02/02/2024 10:19 AM EDT Surgery OR [facility], Operating Room [facility] [address] [place] [address] Andre Swartz MD [address] [address] RIGHT EXTRACAPSULAR CATARACT REMOVAL WITH INTRAOCULAR LENS 02/16/2024 9:23 AM EDT Hospital Encounter OR [facility], Operating Room [facility] [address] [place] [address] Andre Swartz MD [address] [address] 02/16/2024 9:23 AM EDT - 02/16/2024 9:58 AM EDT Surgery OR [facility], Operating Room [facility] [address] [place] [address] Andre Swartz MD [address] [address] LEFT EXTRACAPSULAR CATARACT REMOVAL WITH INTRAOCULAR LENS 05/04/2024 9:45 AM EST Office Visit Dermatology [facility] [address] [place] [address] Marshall Henson MD [address] [place] [address] 06/18/2024 11:30 AM EST Office Visit Urology, [facility] 132 [facility] [place] [address] Ramesh Phan MD [address] [place] [address] 06/22/2024 10:40 AM EST Office Visit Family Practice [facility] [address] [place] [address] Theresa Johnson MD 200 [facility] [place] [address] 07/25/2024 11:00 AM EST Office Visit Neurology [address] [place] [address] Maksim Wright MD [address] [place] [address] Scheduled Orders Name Type Priority Associated [...] this encounter Medical Devices Implanted Type Area Investment Counselor Device Identifier Shelf Expiration Date Model / Serial / Lot Port Powerflow 9.6fr - [id number] Implanted:Qty: 1 on 03/15/2023 at [facility] CR BARD : PERIPHERAL VASCULAR [id number] 10/21/2023 [id number] / / [id number] Power Port 8fr Sngl Lumen Plas - [id number] Implanted:Qty: 1 on 03/15/2023 at [facility] CR BARD : PERIPHERAL VASCULAR [id number] 03/22/2024 [id number] / / [id number] documented as of this encounter Visit Diagnoses [...] Documents on File Type Date Recorded Patient Spray Drier Operator Helper Expl anation Power of Machine Woodworking Sander 06/20/2018 POWER OF A TTORNEY POA: EDEL- DAUGHTER, ROBERT-SON Care Teams Resident Intern Relationship Specialty Start Date End Date Theresa Johnson MD 200 [facility] [place] [address] PCP - General Family Medicine 12/19/23 documented as of this encounter
--- OUTSIDE RECORDS SUMMARY | 2024-06-23 06:22 | External Medical Summary | Summary of Care ---
Author Name Unknown Organization [facility] Address [address] [place] [address] Phone [phone] Care Team Providers Care Hat Copyist Name Role Phone Theresa Johnson MD Primary Care Provider [phone] Reason for Visit * Reason Comments Follow Up Encounter Details Date Type Department Care Team (Late st Contact Info) Description 12/21/2023 3:00 PM EDT Office Visit Neurology [address], [place] [address] [place] [address] Maksim Wright MD [address] [place] [address] Myasthenia gravis (HCC)* Allergies Active Allergy Reactions Criticality Noted Date Comments Benzalkonium Chloride 02/21/2015 Merthiolate "the orange kind" Caused a rash Milk (Cow) Diarrhea 02/05/2015 documented as of this encounter (statuses as of 12/26/2023) Medications Medication Sig Dispensed Refills Start Date End Date Status ALEVE 220 MG PO CAPS as needed Active Fluticasone Propionate 50 MCG/ACT Nasal Suspension Administer 1 [place] into nostril in the morning. Active FIBER [...] as of this encounter (statuses as of 12/26/2023) Active Problems Problem Noted Date Diagnosed Date [...] as of this encounter (statuses as of 12/26/2023) Resolved Problems Problem Noted Date Diagnosed Date Resolved Date Myasthenia gravis with exacerbation 12/14/2022 12/19/2023 Nonallopathic lesion of abdo men and other sites, not elsewhere classified 11/22/2003 06/30/19 12 documented as of this encounter (statuses as of 12/26/2023) Immunizations Name Administration Dates Next Due COVID-19 [...] as of this encounter Progress Notes * Maksim Wright MD - 12/21/2023 5:47 PM EDT 12/21/2023 Pt with MG markedly improved with Vyvgart Prior treatment with PLEX plus higher dose steroids inadequate, with Vyvgart back to the gym and had full day with granddaughter though slept 10 hours after this. No bulbar sx, no motor sx beyond fatigue and trouble with low chair. ADL score is 2 for chair, 1 for diplopia and not c/o ptosis. On Prednisone - labs stable, notes facial edema. PE shows no weakness in proximal LE, mild trouble up off chair IMP MG Chronic immunosuppressions Plan 1) Vyvgart continue - will keep prednisone at 5 mg a day - if does well at next Vyvgart will d/c entirely 2) If sx worsen will likely need to increase Prednisone . Expect he may have fluctuations over time Reviewed with son-in-law Jrarod by phone F.U in 6 months, see's pharmacy weekly by phone. Maksim Wright MD documented in this encounter Plan of Treatment Upcoming Encounters Date Type Department Care Team (Late st Contact Info) Description 12/26/2023 1:00 PM EDT Telemedicine Neurology [address] [place] [address] Neto, Pharmacist Neurology [address] [place] [address] Arrived 01/16/2024 9:00 AM EDT Office Visit [facility] 200 [facility] [place] [address] Miriam Marx PA-C 200 [facility] [place], [place] [address] 01/18/2024 11:00 AM EDT Nurse Only Apheresis Clinic, [place] [address] [place] [phone] [place] Apheresis Nurse, RENÉ [address] [place] [address] 02/02/2024 9:44 AM EDT Hospital Encounter OR [facility], Operating Room OSS 132 [facility] [place] [phone] Andre Swartz MD [address] [address] 02/02/2024 9:44 AM EDT - 02/02/2024 10:19 AM EDT Surgery OR [facility], Operating Room OSS 132 [facility] [place] [phone] Andre Swartz MD [address] [address] RIGHT EXTRACAPSULAR CATARACT REMOVAL WITH INTRAOCULAR LENS 02/16/2024 9:23 AM EDT Hospital Encounter OR [facility], Operating Room OSS 132 [facility] [place] [phone] Andre Swartz MD [address] [address] 02/16/2024 9:23 AM EDT - 02/16/2024 9:58 AM EDT Surgery OR [facility], Operating Room O[facility] [address] [place] [phone] Andre Swartz MD [address] [place] [address] LEFT EXTRACAPSULAR CATARACT REMOVAL WITH INTRAOCULAR LENS 05/04/2024 9:45 AM EST Office Visit Dermatology [facility] [address] [place] [address] Marshall Henson MD [address] [place] [address] 06/18/2024 11:30 AM EST Office Visit Urology, [facility] [address] [place] [address] Ramesh Phan MD [address] [place] [address] 06/22/2024 10:40 AM EST Office Visit Family Practice [facility] [address] [place] [address] Theresa Johnson MD [address] [place] [address] 07/25/2024 11:00 AM EST Office Visit Neurology Neto [address] [place] [address] Maksim Wright MD [address] [facility] [place] [address] Scheduled Procedures Name Priority Associated Diagnoses [...] Fecal Occult Blood Test 01/12/1997 Sigmoidoscopy 01/12/1997 Depression Screening 02/18/2021 02/19/2020 COVID-19 Vaccine ( [...] this encounter Medical Devices Implanted Type Area Critical Care Nurse Practitioner Device Identifier Shelf Expiration Date Model / Serial / Lot Port Powerflow 9.6fr - [id number] Implanted:Qty: 1 on 03/15/2023 at [facility] CR BARD : PERIPHERAL VASCULAR [id number] 10/21/2023 [id number] / / [id number] Power Port 8fr Sngl Lumen Plas - [id number] Implanted:Qty: 1 on 03/15/2023 at [facility] CR BARD : PERIPHERAL VASCULAR [id number] 03/22/2024 [id number] / / [id number] documented as of this encounter Visit Diagnoses Diagnosis Myasthenia gravis (HCC)- Primary Myasthenia gravis without exacerbation Combined forms of age-related cataract of right eye Other and combined forms of senile cataract 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 eye Other and combined forms of senile cataract documented in this encounter Advance Directives Documents on File Type Date Recorded Patient Balance Wheel Motion Inspector Expl anation Power of Payroll Benefits Clerk 06/20/2018 POWER OF A TTORNEY POA: EDEL- DAUGHTER, ROBERT-SON Care Teams Hat Copyist Relationship Specialty Start Date End Date Theresa Johnson MD [address] [place] [address] PCP - General Family Medicine 12/19/23 documented as of this encounter
--- OUTSIDE RECORDS SUMMARY | 2024-06-23 06:22 | External Medical Summary | Summary of Care ---
Author Name Unknown Organization [facility] Address [address] [place] [address] Phone [phone] Care Team Providers Care Hydrometeorological Technician Name Role Phone Theresa Johnson MD Primary Care Provider Reason for Referral * Precert (Within 10 days (routine)) - Authorized Specialty Diagnoses / Procedures Referred By Contac t Referred To Contact Radiology Diagnoses Myasthenia gravis (HCC) Procedures IR VENOUS ACCESS Maksim Olson MD [address] [place] [address] Referral ID Status Reason Start Date Expiration Date V isits Requested Visits Authorized [id number] Authorized 12/29/2023 999 999 Reason for Visit * Reason Onset Date Comments Follow Up 12/21/2023 Order Request 12/21/2023 Adriana/medi port removal Encounter Details Date Type Department Care Team (Late st Contact Info) Description 12/21/[address] [place] [address] Maksim Wright MD [address] [place] [address] Follow Up (/); Order Request (Adriana/... Allergies Active Allergy Reactions Criticality Noted Date Comments Benzalkonium Chloride 02/21/2015 Merthiolate "the orange kind" Caused a rash Milk (Cow) Diarrhea 02/05/2015 documented as of this encounter (statuses as of 12/27/2023) Medications Medication Sig Dispensed Refills Start Date End Date Status ALEVE 220 MG PO CAPS as needed Active Fluticasone Propionate 50 MCG/ACT Nasal Suspension Administer 1 [place] into nostril in the morning. Active FIBER [...] as of this encounter (statuses as of 12/27/2023) Active Problems Problem Noted Date Diagnosed Date [...] as of this encounter (statuses as of 12/27/2023) Resolved Problems Problem Noted Date Diagnosed Date Resolved Date Myasthenia gravis with exacerbation 12/14/2022 12/19/2023 Nonallopathic lesion of abdo men and other sites, not elsewhere classified 11/22/2003 06/30/19 12 documented as of this encounter (statuses as of 12/27/2023) Immunizations Name Administration Dates Next Due COVID-19 [...] encounter Miscellaneous Notes * Telephone Encounter - Eddie George RN [...] needed from him. * Telephone Encounter - Anette Tanner RP - 12/27/2023 7:[address] [...] Description 01/02/2024 1:00 PM EDT Telemedicine Neurology [address] [place] [phone] Neto, Pharmacist Neurology [address] [facility] [address] [address] 01/16/2024 9:00 AM EDT Office Visit Family [facility] Iam [address] [place] [address] [place] [address] Miriam Marx PA-C [address] [facility] [place] [address] 01/18/2024 11:00 AM EDT Nurse Only Apheresis Clinic, Neto [address] [place] [address] Neto Apheresis Nurse, RENÉ [address] [facility] [place] [address] 02/02/2024 9:44 AM EDT Hospital Encounter OR [facility], Operating Room OSS [address] [place] [phone] Andre Swartz MD [address] [address] 02/02/2024 9:44 AM EDT - 02/02/2024 10:19 AM EDT Surgery OR [facility], Operating Room OSS [address] [place] [address] Andre Swartz MD [address] [address] RIGHT EXTRACAPSULAR CATARACT REMOVAL WITH INTRAOCULAR LENS 02/16/2024 9:23 AM EDT Hospital Encounter OR [facility]SS[facility], Operating Room OSS [address] [place] [address] Andre Swartz MD [address] [address] 02/16/2024 9:23 AM EDT - 02/16/2024 9:58 AM EDT Surgery OR [facility], Operating Room OSS [address] [place] [phone] Andre Swartz MD [address] [address] LEFT EXTRACAPSULAR CATARACT REMOVAL WITH INTRAOCULAR LENS 05/04/2024 9:45 AM EST Office Visit Dermatology [facility] [address] [place] [address] Marshall Henson MD [address] [place] [address] 06/18/2024 11:30 AM EST Office Visit Urology, [facility] 132 [facility] [place] [address] Ramesh Phan MD [address] [address] [address] 06/22/2024 10:40 AM EST Office Visit Family Practice [facility] [address] [place] [address] Theresa Johnson MD 200 [place] [address] 07/25/2024 11:00 AM EST Office Visit Neurology [address] [place] [address] Maksim Wright MD [address] [facility] [place] [address] Scheduled Orders Name Type Priority Associated [...] 11/27/2018 Depression Screening 02/18/2021 02/19/2020 COVID-19 Vaccine (3 - 2023-24 season) 2023 07/13/2020, 06/13/2020 Influenza Vaccine (FLU [...] this encounter Medical Devices Implanted Type Area School Athletic Director Device Identifier Shelf Expiration Date Model / Serial / Lot Port Powerflow 9.6fr - [id number] Implanted:Qty: 1 on 03/15/2023 at [facility] CR BARD : PERIPHERAL VASCULAR [id number] 10/21/2023 [id number] / / [id number] Power Port 8fr Sngl Lumen Plas - [id number] Implanted:Qty: 1 on 03/15/2023 at [facility] CR BARD : PERIPHERAL VASCULAR [id number] 03/22/2024 [id number] / / [id number] documented as of this encounter Visit Diagnoses Diagnosis Myasthenia gravis (HCC)- Primary Myasthenia gravis without exacerbation Combined forms of age-related cataract of right eye Other and combined forms of senile cataract 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 eye Other and combined forms of senile cataract documented in this encounter Advance Directives Documents on File Type Date Recorded Patient Insole And Outsole Splitter Expl anation Power of Gis Application Developer 06/20/2018 POWER OF A TTORNEY POA: EDEL- DAUGHTER, ORBERT-SON Care Teams Hydrometeorological Technician Relationship Specialty Start Date End Date Theresa Johnson MD [address] [place] [address] PCP - General Family Medicine 12/19/23 documented as of this encounter
--- OUTSIDE RECORDS SUMMARY | 2024-06-23 06:22 | External Medical Summary | Summary of Care ---
Author Name Unknown Organization [facility] Address [address] [place] [address] Phone [phone] Care Team Providers Care Complementary Health Therapists Name Role Phone Theresa Johnson MD Primary Care Provider [phone] Reason for Referral * Precert (Within 10 days (routine)) - Authorized Specialty Diagnoses / Procedures Referred By Contac t Referred To Contact Radiology Diagnoses Myasthenia gravis (HCC) Procedures IR VENOUS ACCESS Maksim Olson MD [address] [place] [address] Referral ID Status Reason Start Date Expiration Date V isits Requested Visits Authorized [id number] Authorized 12/29/2023 999 999 Reason for Visit * Reason Onset Date Comments Follow Up 12/21/2023 Order Request 12/21/2023 Adriana/medi port removal Encounter Details Date Type Department Care Team (Late st Contact Info) Description 12/21/20[address] [place] [address] Maksim Wright MD [address] [place] [address] Follow Up (/); Order Request [...] Propionate 50 MCG/ACT Nasal Suspension Administer 1 [place] into nostril in the morning. Active FIBER [...] 1:00 PM EDT Telemedicine Neurology Renny John, [place] [address] [place] [phone] Nathan, Pharmacist Neurology [address] [place] [address] 01/16/2024 9:00 AM EDT Office Visit [facility] 200 [facility] [place] [address] Miriam Marx PA-C 200 [facility] [place] [address] 01/18/2024 11:00 AM EDT Nurse Only Apheresis Clinic, Nathan [address] [facility] [place] [address] Nathan, Apheresis Nurse, RN [address] [place] [address] 02/02/2024 9:44 AM EDT Hospital Encounter OR [facility]SS[facility], Operating Room OSS [address] [place] [phone] Andre Swartz MD [address] [address] 02/02/2024 9:44 AM EDT - 02/02/2024 10:19 AM EDT Surgery OR [facility]SS[facility], Operating Room OSS [address] [place] [phone] Andre Swartz MD [address] [address] RIGHT EXTRACAPSULAR CATARACT REMOVAL WITH INTRAOCULAR LENS 02/16/2024 9:23 AM EDT Hospital Encounter OR [facility]SS[facility], Operating Room OSS [address] [place] [phone] Andre Swartz MD [address] [address] 02/16/2024 9:23 AM EDT - 02/16/2024 9:58 AM EDT Surgery OR [facility], Operating Room [facility] [address] [place] [address] Andre Swartz MD [address] [place] [address] LEFT EXTRACAPSULAR CATARACT REMOVAL WITH INTRAOCULAR LENS 05/04/2024 9:45 AM EST Office Visit Dermatology [facility] [address] [place] [address] Marshall Henson MD 200 [facility] [place] [address] 06/18/2024 11:30 AM EST Office Visit Urology, [facility] 132 [facility] [place] [address] Ramesh Phan MD [address] [place] [address] 06/22/2024 10:40 AM EST Office Visit Family Practice [facility] [address] [place] [address] Theresa Johnson MD [address] [place] [address] 07/25/2024 11:00 AM EST Office Visit Neurology [address] [place] [address] Maksim Wright MD [address] [facility] [place] [address] Scheduled Orders Name Type [...] this encounter Medical Devices Implanted Type Area Board Certified Arts Therapist Device Identifier Shelf Expiration Date Model / Serial / Lot Port Powerflow 9.6fr - [id number] Implanted:Qty: 1 on 03/15/2023 at [facility] CR BARD : PERIPHERAL VASCULAR [id number] 10/21/2023 [id number] / / [id number] Power Port 8fr Sngl Lumen Plas - [id number] Implanted:Qty: 1 on 03/15/2023 at [facility] CR BARD : PERIPHERAL VASCULAR [id number] 03/22/2024 [id number] / / [id number] documented as of this encounter Visit Diagnoses Diagnosis Myasthenia gravis (HCC)- Primary Myasthenia gravis without exacerbation Combined forms of age-related cataract of right eye Other and combined forms of senile cataract 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 eye Other and combined forms of senile cataract documented in this encounter Advance Directives Documents on File Type Date Recorded Patient Trouble Locator Test Desk Expl anation Power of Cooker Meal 06/20/2018 POWER OF A TTORNEY POA: EDEL- DAUGHTER, ROBERT-SON Care Teams Complementary Health Therapists Relationship Specialty Start Date End Date Theresa Johnson MD [address] [place] [address] PCP - General Family Medicine 12/19/23 documented as of this encounter
--- OUTSIDE RECORDS SUMMARY | 2024-06-23 06:22 | External Medical Summary | Summary of Care ---
Author Name Unknown Organization [facility] Address [address] [place] [address] Phone [phone] Care Team Providers Care Instrument Assembly Supervisor Name Role Phone Theresa Johnson MD Primary Care Provider [phone] Reason for Visit * Reason Comments Dosage Adjustment Via Phone (anticoag Cl inic) Encounter Details Date Type Department Care Team (Late st Contact Info) Description 12/26/2023 1:00 PM EDT Telemedicine Neurology [address] [place] [address] Nathan, Pharmacist Neurology [address] [place] [address] Myasthenia gravis (HCC)* Allergies Active Allergy Reactions Criticality Noted Date Comments Benzalkonium Chloride 02/21/2015 Merthiolate "the orange kind" Caused a rash Milk (Cow) Diarrhea 02/05/2015 documented as of this encounter (statuses as of 12/26/2023) Medications Medication Sig Dispensed Refills Start Date End Date Status ALEVE 220 MG PO CAPS as needed Active Fluticasone Propionate 50 MCG/ACT Nasal Suspension Administer 1 [place] into nostril in the morning. Active FIBER [...] encounter Progress Notes * Anette Tanner, [facility] - 12/26/2023 12:35 PM EDT Images from the original note were not included. Patient Symptom Assessment [facility] Neurology Patient location: HOME. I was in a hospital or clinic location. After connecting through [employer],patient was verified with two unique identifiers. Patient (or authorized legal outside sales representative insurance) was then informed that this was a [...] minutes. Vyvgart Dosing - Cycle 1 -09/16/23, 09/23/23 , 09/30/23 , 10/07/23 Cycle 2- 11/14/23, 11/21/23, 11/28/23, 12/05/23 Baseline MG-ADL completed on 09/02/23: 6 MG-ADL on 12/26/23: Talkin [place] Swallowin Breathin Impairment of ability to brush teeth of comb hair: 0 Impairment of ability to arise from chair: 1 Double vision: 3 Eyelid droop: 2 - states has always been daily but not full closure - stable ptosis Total Score: 6 Patient is still doing well this week. He felt fatigued on Tuesday and thought this was due to decreased prednisone dose but felt better on Tuesday. He has still been going to the gym three times/week. MG-ADL stable. Previous cycle was delayed due to infusion center needing to order medication. Sent staff message to SP nurse and [facility] to see if medication can be ordered ahead of anticipated infusion to prevent delays. Started second round on day 59- felt that day 56 was significantly worsened. 50 days after Day 1 of last cycle: 01/03/24 Patient was advised to contact the clinic in the meantime with any questions or concerns. Follow up: MG-ADL one week Anette Tanner RPh Clinical Pharmacist, Neurology Medication Therapy Disease Management 12/26/2023 12:38 PM documented in this encounter Plan of Treatment Upcoming Encounters Date Type Department Care Team (Late st Contact Info) Description 01/02/2024 1:00 PM EDT Telemedicine Neurology [address] [place] [address] [phone] Nathan, Pharmacist Neurology [address] [facility] [place] [address] 01/16/2024 9:00 AM EDT Office Visit [facility] 200 [place] [address] Miriam Marx PA-C [facility] [place] [address] 01/18/2024 11:00 AM EDT Nurse Only Apheresis Clinic, Nathan [address] [place] [phone] Nathan Apheresis Nurse, RN [address] [place] [id number] 02/02/2024 9:44 AM EDT Hospital Encounter OR [facility], Operating Room [facility] 132 [facility] [place] [phone] MaximeAndre martinez MD [address] [place] [address] 02/02/2024 9:44 AM EDT - 02/02/2024 10:19 AM EDT Surgery OR OSS, Operating Room O[facility] [place] [address] Andre Swartz MD [address] [place] [address] RIGHT EXTRACAPSULAR CATARACT REMOVAL WITH INTRAOCULAR LENS 02/16/2024 9:23 AM EDT Hospital Encounter OR [facility]SS[facility], Operating Room OSS 132 [place] [address] Andre Swartz MD [address] [place] [address] 02/16/2024 9:23 AM EDT - 02/16/2024 9:58 AM EDT Surgery OR [facility]SS[facility], Operating Room OSS 132 [place] [address] Andre Swartz MD [address] [place] [address] LEFT EXTRACAPSULAR CATARACT REMOVAL WITH INTRAOCULAR LENS 05/04/2024 9:45 AM EST Office Visit Dermatology [facility] [address] [place] [address] Marshall Henson MD [address] [place] [address] 06/18/2024 11:30 AM EST Office Visit Urology, [facility] 132 [place] [address] Ramesh Phan MD [address] [id number] 06/22/2024 10:40 AM EST Office Visit Family Practice Iam Velas[address] [place] 200 [place] [address] Theresa Johnson MD 200 [facility] [place] [address] 07/25/2024 11:00 AM EST Office Visit Neurology [address] [place] [address] Maksim Wright MD [address] [facility] [place] [address] Scheduled Procedures [...] this encounter Medical Devices Implanted Type Area Macadam Raker Device Identifier Shelf Expiration Date Model / Serial / Lot Port Powerflow 9.6fr - [id number] Implanted:Qty: 1 on 03/15/2023 at [facility] CR BARD : PERIPHERAL VASCULAR [id number] 10/21/2023 [id number] / / [id number] Power Port 8fr Sngl Lumen Plas - [id number] Implanted:Qty: 1 on 03/15/2023 at [facility] CR BARD : PERIPHERAL VASCULAR [id number] 03/22/2024 [id number] / / [id number] documented as of this encounter Visit Diagnoses Diagnosis Myasthenia gravis (HCC)- Primary Myasthenia gravis without exacerbation Combined forms of age-related cataract of right eye Other and combined forms of senile cataract 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 eye Other and combined forms of senile cataract documented in this encounter Advance Directives Documents on File Type Date Recorded Patient General Labor Forklift Operator Expl anation Power of Product Support Rep 06/20/2018 POWER OF A TTORNEY POA: EDEL- DAUGHTER, ROBERT-SON Care Teams Instrument Assembly Supervisor Relationship Specialty Start Date End Date Theresa Johnson MD [address] [place] [address] PCP - General Family Medicine 12/19/23 documented as of this encounter
--- OUTSIDE RECORDS SUMMARY | 2024-06-23 06:22 | External Medical Summary | Summary of Care ---
Author Name Unknown Organization [facility] Address [address] [place] [address] Phone [phone] Care Team Providers Care Explosive Operator Bomb Name Role Phone Theresa Johnson MD Primary Care Provider [phone] Reason for Referral * Precert (Within 10 days (routine)) - Authorized Specialty Diagnoses / Procedures Referred By Contac t Referred To Contact Radiology Diagnoses Myasthenia gravis (HCC) Procedures IR VENOUS ACCESS Maksim Olson MD [address] [place] [address] Referral ID Status Reason Start Date Expiration Date V isits Requested Visits Authorized [id number] Authorized 12/29/2023 999 999 Reason for Visit * Reason Onset Date Comments Follow Up 12/21/2023 Order Request 12/21/2023 Adriana/medi port removal Encounter Details Date Type Department Care Team (Late st Contact Info) Description 12/21/2023 [address]phone [address] [place] [address] Maksim Wright MD [address] [place] [address] Follow Up (/); Order Request [...] Propionate 50 MCG/ACT Nasal Suspension Administer 1 [place] into nostril in the morning. Active FIBER [...] Telephone Encounter - Anette Tanner RPh - 12/27/2023 7:[address] [...] Description 01/02/2024 1:00 PM EDT Telemedicine Neurology [address] [place] [address] Nathan, Pharmacist Neurology [address] [place] [facility] [place] [address] 01/16/2024 9:00 AM EDT Office Visit Family [facility] [place] [address] [place] [address] Miriam Marx PA-C [address] [facility] [place] [address] 01/18/2024 11:00 AM EDT [facility] [address] [place] [phone] Nathan Apheresis Nurse, RN [address] [facility] [place] [id number] 02/02/2024 9:44 AM EDT Hospital Encounter OR [facility], Operating Room [facility] [address] [facility] [place] [address] Andre Swartz MD [facility] [address] [address] 02/02/2024 9:44 AM EDT - 02/02/2024 10:19 AM EDT Surgery OR OSS, Operating Room OSS [address] [place] [address] Andre Swartz MD [address] [address] RIGHT EXTRACAPSULAR CATARACT REMOVAL WITH INTRAOCULAR LENS 02/16/2024 9:23 AM EDT Hospital Encounter OR [facility] [place] [address] Andre Swartz MD [address] [address] 02/16/2024 9:23 AM EDT - 02/16/2024 9:58 AM EDT Surgery OR [facility], Operating Room OSS [address] [facility] [place] [address] Andre Swartz MD [address] [address] LEFT EXTRACAPSULAR CATARACT REMOVAL WITH INTRAOCULAR LENS 05/04/2024 9:45 AM EST Office Visit Dermatology [facility] [address] [place] [address] Marshall Henson MD [address] [place] [address] 06/18/2024 11:30 AM EST Office Visit Urology, [facility] [address] [place] [address] Ramesh Phan MD [address] [address] 06/22/2024 10:40 AM EST Office Visit [facility] [place] [address] [place] [address] Theresa Johnson MD 200 [facility] [place] [address] 07/25/2024 11:00 AM EST Office Visit Neurology Nathan [address] [place] [address] Maksim Wright MD [address] [facility] [place] [address] Scheduled Orders Name Type [...] this encounter Medical Devices Implanted Type Area Artificial Snow Making Machine Operator Device Identifier Shelf Expiration Date Model / Serial / Lot Port Powerflow 9.6fr - [id number] Implanted:Qty: 1 on 03/15/2023 at [facility] : PERIPHERAL VASCULAR [id number] 10/21/2023 [id number] / / [id number] Power Port 8fr Sngl Lumen Plas - [id number] Implanted:Qty: 1 on 03/15/2023 at [facility] : PERIPHERAL VASCULAR [id number] 03/22/2024 [id number] / / [id number] documented as of this encounter Visit Diagnoses Diagnosis Myasthenia gravis (HCC)- Primary Myasthenia gravis without exacerbation Combined forms of age-related cataract of right eye Other and combined forms of senile cataract 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 eye Other and combined forms of senile cataract documented in this encounter Advance Directives Documents on File Type Date Recorded Patient College Admissions Counselor Expl anation Power of Buttermaker Helper 06/20/2018 POWER OF A TTORNEY POA: EDEL- DAUGHTER, ROBERT-SON Care Teams Explosive Operator Bomb Relationship Specialty Start Date End Date Theresa Johnson MD [address] [place] [address] PCP - General Family Medicine 12/19/23 documented as of this encounter
--- OUTSIDE RECORDS SUMMARY | 2024-06-23 06:22 | External Medical Summary | Summary of Care ---
Author Name Unknown Organization [facility] Address [address] [place] [address] Phone [phone] Care Team Providers Care Ar Manager Name Role Phone Theresa Johnson MD Primary Care Provider [phone] Reason for Referral * Precert (Within 10 days (routine)) - Authorized Specialty Diagnoses / Procedures Referred By Contac t Referred To Contact Radiology Diagnoses Myasthenia gravis (HCC) Procedures IR VENOUS ACCESS Maksim Olson MD [address] [place] [address] Referral ID Status Reason Start Date Expiration Date V isits Requested Visits Authorized [id number] Authorized 12/29/2023 999 999 Reason for Visit * Reason Onset Date Comments Follow Up 12/21/2023 Order Request 12/21/2023 Adriana/medi port removal Encounter Details Date Type Department Care Team (Late st Contact Info) Description 12/21/2023 Telephone [address] [place] [address] Maksim Wright MD [address] [place] [address] Follow Up (/); Order Request [...] Propionate 50 MCG/ACT Nasal Suspension Administer 1 [place] into nostril in the morning. Active FIBER [...] 1:00 PM EDT Telemedicine Neurology [address], [place] [address] [place] [phone] Nathan, Pharmacist Neurology [address] [place] [address] 01/16/2024 9:00 AM EDT Office Visit [facility] 200 [facility] [place] [address] Miriam Marx PA-C 200 [facility] [place] [address] 01/18/2024 11:00 AM EDT Nurse Only Apheresis Clinic, Nathan [address] [place] [facility] [place] [address] Nathan, Apheresis Nurse, RN [address] [place] [address] 02/02/2024 9:44 AM EDT Hospital Encounter OR [facility], Operating Room OSS [address] [place] [phone] Andre Swartz MD [address] [address] 02/02/2024 9:44 AM EDT - 02/02/2024 10:19 AM EDT Surgery OR [facility], Operating Room OSS [address] [place] [phone] Andre Swartz MD [address] [address] RIGHT EXTRACAPSULAR CATARACT REMOVAL WITH INTRAOCULAR LENS 02/16/2024 9:23 AM EDT Hospital Encounter OR [facility], Operating Room OSS [address] [place] [phone] Andre Swartz MD [address] [address] 02/16/2024 9:23 AM EDT - 02/16/2024 9:58 AM EDT Surgery OR [facility], Operating Room [facility] [address] [place] [address] Andre Swartz MD [address] [place] [address] LEFT EXTRACAPSULAR CATARACT REMOVAL WITH INTRAOCULAR LENS 05/04/2024 9:45 AM EST Office Visit Dermatology [facility] [address] [place] [address] Marshall Henson MD 200 [facility] [place] [address] 06/18/2024 11:30 AM EST Office Visit Urology, [facility] 132 [place] [address] Ramesh Phan MD [address] [place] [address] 06/22/2024 10:40 AM EST Office Visit Family Practice [facility] [address] [place] [address] Theresa Johnson MD [address] [place] [address] 07/25/2024 11:00 AM EST Office Visit Neurology Nathan [address] [place] [address] Maksim Wright MD [address] [facility] [place] [address] Scheduled Orders [...] encounter Medical Devices Implanted Type Area Medical Observer Device Identifier Shelf Expiration Date Model / Serial / Lot Port Powerflow 9.6fr - [id number] Implanted:Qty: 1 on 03/15/2023 at [facility]ARD : PERIPHERAL VASCULAR [id number] 10/21/2023 [id number] / / [id number] Power Port 8fr Sngl Lumen Plas - [id number] Implanted:Qty: 1 on 03/15/2023 at [facility] CR BARD : PERIPHERAL VASCULAR [id number] 03/22/2024 [id number] / / [id number] documented as of this encounter Visit Diagnoses Diagnosis Myasthenia gravis (HCC)- Primary Myasthenia gravis without exacerbation Combined forms of age-related cataract of right eye Other and combined forms of senile cataract 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 eye Other and combined forms of senile cataract documented in this encounter Advance Directives Documents on File Type Date Recorded Patient Yarn Washer Expl anation Power of Boat Rigger 06/20/2018 POWER OF A TTORNEY POA: EDEL- DAUGHTER, ROBERT-SON Care Teams Ar Manager Relationship Specialty Start Date End Date Theresa Johnson MD [address] [place] [address] PCP - General Family Medicine 12/19/23 documented as of this encounter
--- OUTSIDE RECORDS SUMMARY | 2024-06-23 06:22 | External Medical Summary | Summary of Care ---
Author Name Unknown Organization [facility] Address [address] [place] [address] Phone [phone] Care Team Providers Care Skiver Machine Name Role Phone Theresa Johnson MD Primary Care Provider [phone] Reason for Referral * Precert (Within 10 days (routine)) - Authorized Specialty Diagnoses / Procedures Referred By Contac t Referred To Contact Radiology Diagnoses Myasthenia gravis (HCC) Procedures IR VENOUS ACCESS Maksim Olson MD [address] [place] [address] Referral ID Status Reason Start Date Expiration Date V isits Requested Visits Authorized [id number] Authorized 12/29/2023 999 999 Reason for Visit * Reason Onset Date Comments Follow Up 12/21/2023 Order Request 12/21/2023 Adriana/medi port removal Encounter Details Date Type Department Care Team (Late st Contact Info) Description 12/21/2023 Telephone [address] [place] [address] Maksim Wright MD [address] [place] [address] Follow Up (/); Order Request [...] Propionate 50 MCG/ACT Nasal Suspension Administer 1 [place] into nostril in the morning. Active FIBER [...] encounter Miscellaneous Notes * Telephone Encounter - Saida Adams RN [...] and stop drinking 2 hoursprior to procedure. -Quill Skinner required Location and check-in instructions Verbalizes understanding [...] him. * Telephone Encounter - Anette Tanner RPh [...] Description 01/02/2024 1:00 PM EDT Telemedicine Neurology [address] [place] [place] [address] Nathan, Pharmacist Neurology [address] [place] [address] 01/16/2024 9:00 AM EDT Office Visit [facility] 200 [place] [address] Miriam Marx PA-C 200 [facility] [place] [address] 01/18/2024 11:00 AM EDT Nurse Only Apheresis Clinic, [place] [address] [place] [address] Nathan, Apheresis Nurse, RN [address] [place] [address] 02/02/2024 9:44 AM EDT Hospital Encounter OR [facility], Operating Room OSS [address] [place] [phone] Andre Swartz MD [address] [place] [address] 02/02/2024 9:44 AM EDT - 02/02/2024 10:19 AM EDT Surgery OR [facility], Operating Room [facility] [address] [place] [phone] Andre Swartz MD [address] [address] RIGHT EXTRACAPSULAR CATARACT REMOVAL WITH INTRAOCULAR LENS 02/16/2024 9:23 AM EDT Hospital Encounter OR [facility], Operating Room OSS [address] [place] [phone] Andre Swartz MD [address] [address] 02/16/2024 9:23 AM EDT - 02/16/2024 9:58 AM EDT Surgery OR [facility], Operating Room [facility] [address] [place] [phone] Andre Swartz MD [address] [address] LEFT EXTRACAPSULAR CATARACT REMOVAL WITH INTRAOCULAR LENS 05/04/2024 9:45 AM EST Office Visit Dermatology [facility] [address] [place] [address] Marshall Henson MD [address] [place] [address] 06/18/2024 11:30 AM EST Office Visit Urology, [facility] [address] [facility] [place] [address] Ramesh Phan MD [address] [address] [address] 06/22/2024 10:40 AM EST Office Visit Family Practice [facility] [address] [place] [address] Theresa Johnson MD [address] [place] [address] 07/25/2024 11:00 AM EST Office Visit Neurology Nathan [address] [place] [address] Maksim Wright MD [address] [facility] [place] [address] Scheduled Orders Name [...] this encounter Medical Devices Implanted Type Area Applications Programmer Analyst Device Identifier Shelf Expiration Date Model / Serial / Lot Port Powerflow 9.6fr - [id number] Implanted:Qty: 1 on 03/15/2023 at [facility] CR BARD : PERIPHERAL VASCULAR [id number] 10/21/2023 [id number] / / [id number] Power Port 8fr Sngl Lumen Plas - [id number] Implanted:Qty: 1 on 03/15/2023 at [facility] CR BARD : PERIPHERAL VASCULAR [id number] 03/22/2024 [id number] / / [id number] documented as of this encounter Visit Diagnoses Diagnosis Myasthenia gravis (HCC)- Primary Myasthenia gravis without exacerbation Combined forms of age-related cataract of right eye Other and combined forms of senile cataract 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 eye Other and combined forms of senile cataract documented in this encounter Advance Directives Documents on File Type Date Recorded Patient Enterprise Software Developer Expl anation Power of Trade Manager 06/20/2018 POWER OF A TTORNEY POA: EDEL- DAUGHTER, ROBERT-SON Care Teams Skiver Machine Relationship Specialty Start Date End Date Theresa Johnson MD [address] [place] [address] PCP - General Family Medicine 12/19/23 documented as of this encounter
[2024-06-23] MEDS: Octagam 10% IVIG 20 gram bottle IV SCH (07:29)
[2024-06-23 07:47] LABS: Basophils # (auto) 0.05 K/uL (0.00-0.20); Basophils % (auto) 0.8 %; Eosinophils # (auto) 0.14 K/uL (0.00-0.50); Eosinophils % (auto) 2.2 %; Hematocrit (blood only) 45.5 % (42.0-52.0); Hemoglobin 15.5 g/dl (14.0-18.0); Immature Granulocytes # (auto) 0.05 K/uL (0.01-0.20); Immature Granulocytes % (auto) 0.8 %; Lymphocytes # (auto) 1.48 K/uL (1.20-3.40); Lymphocytes % (auto) 22.9 %; Mean Corpuscular Hemoglobin 30.6 pg (25.0-34.0); Mean Corpuscular Hgb Conc 34.1 g/dL (32.0-36.0); Mean Corpuscular Volume 89.7 fL (80.0-100.0); Mean Platelet Volume 9.9 fL (9.4-12.4); Monocytes # (auto) 0.19 K/uL (0.11-0.59); Monocytes % (auto) 2.9 %; Neutrophils # (auto) 4.55 K/uL (1.40-6.50); Neutrophils % (auto) 70.4 %; Platelet Count 239 K/uL (130-400); RDW Coefficient of Variation 13.2 % (11.5-14.5); RDW Standard Deviation 42.8 fL (36.4-46.3); Red Blood Count 5.07 M/uL (4.70-6.10); White Blood Count 6.46 K/ul (4.8-10.8)
[2024-06-23 07:50] LABS: BUN Creatinine Ratio 14.5 (10-20); Calcium 9.3 mg/dl (8.6-10.3); Creatinine Clr Calc Pharmacy 61.5 ml/min; Magnesium 2.1 mg/dl (1.7-2.4); Potassium 4.1 mmol/L (3.5-5.1)
[2024-06-23] MEDS: FINASTERIDE 5 MG TAB PO SCH (08:11)
[2024-06-23] MEDS: TAMSULOSIN HCL 0.4 MG CAP PO SCH (08:11)
[2024-06-23] MEDS ORDERED: methylPREDNISolone 30 MG in SYRINGE 0 ML IV SCH (09:00)
[2024-06-23] MEDS ORDERED: methylPREDNISolone 125 MG/2 ML VIAL IV SCH (09:00)
[2024-06-23] MEDS: methylPREDNISolone 20 MG in SYRINGE 0 ML IV SCH (09:34)
[2024-06-23] MEDS: ENOXAPARIN INJ 40 MG/0.4 ML SYR SQ SCH (09:34)
[2024-06-23] MEDS: ACETAMINOPHEN 1,000 MG/100 ML VIAL IV STA (12:34)
--- NOTE | 2024-06-23 13:03 | Hospitalist Progress Note ---
Date of Service June 23, 2024 Assessment & Plan (1) Myasthenia gravis with (acute) exacerbation: Plan Patient with exacerbation of myasthenia gravis that had failed outpatient treatment and now seems to be having progressive symptoms. Patient received IVIG this morning. Communication with Dr. Valderrama, neurology. Made aware of patient's progressive symptoms. Recommended investigating possible transfer to [facility] neuro ICU. Communication with transfer center and [facility] neurointensivist Dr. May-reviewed patient's symptoms and current condition. They recommended continued treatment and close monitoring in the ICU here at [facility], patient not a candidate for plasmapheresis since he received IVIG. At this time patient did not need higher level of care at [place]. Communication with Dr. Goodwin, sericulture teacher here at [facility]. Aware of consult and patient's condition. Agreeable to manage patient here at [facility] ICU Updated Dr. Valderrama, will see patient seen via telehealth, will clarify whether steroids are to be continued., Recommending steroids be discontinued. Updated patient to plans Continue close intensive care monitoring 65 minutes spent on review of records, care at the bedside, communication with specialist, interpretation and review of diagnostic testing, communication with medical care team Admission and Anticipated Discharge Date Admission Date: June 23, 2024 Subjective Patient reports having a little bit more trouble forming his words, feels as though he has some paresthesias around his left cheek and mouth. States that he is really unable to safely swallow anything at this point even water. Complaining of a caffeine headache since he cannot have his morning coffee. Physical Exam Physical Exam: Constitutional: Alert, nontoxic, no acute distress HEENT: Mucous membranes moist. Lungs: Decreased breath sounds, no wheezes or rails CV: S1-S2, regular Abdomen: Soft, nontender, nondistended Extremities: No significant edema Neuro: Moves all 4 extremities. Speech is clear. No facial asymmetry. Psych: Cooperative, normal mood Results & Data Results & Data Vital Signs (Past 12 Hours) Vital Signs Temp Pulse Pulse Resp BP Pulse Ox Pulse Ox 06/23/24 11:39 37.3 C 103 H 18 180/92 H 97 06/23/24 10:59 105 H 20 97 06/23/24 10:00 94 H 18 181/92 H 98 06/23/24 08:00 83 16 153/87 H 98 02/01/25 07:20 06/23/24 07:02 81 06/23/24 07:00 85 135/77 98 06/23/24 05:50 67 18 98 06/23/24 03:49 72 16 137/88 96 06/23/24 03:49 96 06/23/24 03:37 68 06/23/24 03:00 72 14 137/88 96 06/23/24 01:00 70 17 145/81 H 98 O2 Del Method O2 Del Method 06/23/24 11:39 Room Air 06/23/24 10:59 Room Air 06/23/24 10:00 Room Air 06/23/24 08:00 Room Air 06/23/24 07:20 Room Air 06/23/24 07:02 06/23/24 07:00 Room Air 06/23/24 05:50 Room Air 06/23/24 03:49 Room Air 06/23/24 03:49 Room Air 06/23/24 03:37 06/23/24 03:00 Room Air 06/23/24 01:00 Room Air Diagnostic Findings Reviewed imaging, laboratory and diagnostic studies. Pertinent findings as below. CBC within normal limits Carbon oxide 33, rest of BMP within normal limits
--- NOTE | 2024-06-23 13:04 | Critical Care Consultation ---
Date of Consultation June 23, 2024 Assessment & Plan (1) Myasthenia gravis in crisis: (2) Ptosis: (3) Dysphagia: (4) BPH (benign prostatic hyperplasia): Plan Reason Critically Ill: 74-year-old male present to the hospital with worsening myasthenia gravis symptoms Past medical history: Myasthenia gravis with ptosis of the right eye, basal cell carcinoma, BPH with history of prostate cancer Patient in the ICU for close monitoring as he might need to be intubated. Neuro - [facility]: Negative --Myasthenia gravis with acute crisis On platelet segment at home Patient was started on prednisone as an outpatient IVIG started 06/23/2024 --History of migraine Takes sumatriptan as needed Cardiac - -- Hypertension Not on any medication at home Will start antihypertensives if patient has persistently elevated blood pressure Respiratory - -- Saturating well on room air As per the signout there has been decline in patient's MIP compared to the time presentation Will plan to intubate if the vital capacity falls below 15-20 mL/kg of ideal body weight, decline in MIP less than -25 to -30 and/or respiratory distress with respiratory acidosis GI - -- No acute issues RENAL/LYTES - -- No acute issues Monitor BUN/creatinine Avoid nephrotoxic medication - --BPH On finasteride and Flomax -- History of prostate cancer Never been treated for it Following up with urology under surveillance ENDO - --Myasthenia gravis On prednisone 5-10 mg on a daily basis Recently increased to 20 mg by his neurologist and started him on pyridostigmine -- ICU hypoglycemia protocol HEME - -- No acute issues Monitor H&H ID - -- No clear source of infection so far --Prophylaxis VTE: Lovenox GI: None Lines: Peripheral Diet: N.p.o. given dysphagia Plan: Recommend monitoring MIP and VC every 3-4 hours Aspiration precautions. Usually steroids are contraindicated in patients with acute crisis as it can make crisis worse. I would like to have a confirmation from neurology whether to continue with steroids. Continue with IVIG 400 Mg per KG daily for 5 days, although patient has not responded to IVIG in the past If there is any worsening in patient's respiratory status then elective intubation will be planned Usually there is an inciting event which can cause worsening of myasthenia. I will order UA as well as chest x-ray to make sure he does not have any ongoing infection which will be causing this Follow-up TSH Case was discussed with primary team I have personally spent 44 minutes of critical care time in the direct management of this patient. This is a life/limb threatening event. This includes time spent evaluating patient, direct bedside care, chart review, placing orders, interpretation of diagnostic studies, discussion with consultants, patient, and family members, as well as other required patient management activities. This time is exclusive of all separately billable procedures, and teaching time and separate from and in addition to any other critical care service time. History of Present Illness Attending Physician: Jamie Bee, History of Present Illness 74-year-old male present to the hospital with worsening myasthenia gravis symptoms Past medical history: Myasthenia gravis with ptosis of the right eye, basal cell carcinoma, BPH with history of prostate cancer Patient in the ICU for close monitoring as he might need to be intubated. Signout was given by Dr. Bee on the phone. Patient was being treated for crisis as an outpatient. Interesting he was getting prednisone as well as pyridostigmine. He did get IVIG today first dose in the ER. Initial plan after talking to neurology was to transfer the patient to [facility] but after talking with neurointensivist they recommended patient to be monitored here as they are not planning to do plasmapheresis. At the time of examination patient's daughter was in the room He was not in any respiratory distress, saturating 96-97% on room air. Mild tachycardia. He was able to talk in full sentences. He has tried pyridostigmine in the past but he did not find benefit from it. He was also given IVIG back in 2022 when he had crisis that also did not help and he needed plasmapheresis. Patient stated that he has been having issues with worsening lethargy and difficulty swallowing since 05/28/2024. Is usually on prednisone 5 mg but was gradually increased to 10 and then 20 mg for the same reason The last couple of days he started to notice more ptosis on the right eye. Weakness in the proximal muscle especially the hip. Denies any dysuria, no diarrhea No chest pain, no cough. No fever or chills Social history: Lifetime non-smoker Allergies Allergy/AdvReac Type Severity Reaction Status Date / Time RITHAMIN Allergy . Uncoded 05/03/12 16:05 Home Medications Medication Instructions Recorded Confirmed Type alendronate 70 mg tablet 70 mg PO WK 06/23/24 06/23/24 History finasteride 5 mg tablet 5 mg PO DAILY 06/23/24 06/23/24 History mirtazapine 15 mg tablet 15 mg PO HS 06/23/24 06/23/24 History prednisone 10 mg tablet 30 mg PO DAILY 06/23/24 06/23/24 History pyridostigmine bromide 60 mg tablet 60 mg PO Q4H 06/23/24 06/23/24 History sumatriptan succinate 100 mg tablet 100 mg PO UD 06/23/24 06/23/24 History tamsulosin 0.4 mg capsule 0.4 mg PO DAILY 06/23/24 06/23/24 History Patient History Social History Smoking Status: Never smoker Second Hand Exposure: No; Do You Dip or Chew Tobacco: No; Tobacco Cessation Education Requested by Patient: No Hx Alcohol Use: Yes Alcohol type: beer Hx Substance Use: No Preferred Language: Telugu Communication Ability: Effective Informatics Nurse Required: No Beliefs That Will Affect Care: None Current Living Situation: Alone Other Information That Helps Us Care for You: No Feels Safe at Home: Yes Safety Concerns: Feels Safe At This Time Assistive Devices: Cane and Glasses Review of Systems 2 Review of Systems: All systems reviewed & are unremarkable except as noted in HPI & below Physical Exam 2 Physical Exam: Constitutional: No acute distress HEENT: EOMI, PERRLA in the left eye, right eye ptosis Respiratory system: Good air entry bilaterally, no wheeze, rhonchi, no crackles CVS: S1-S2 positive, no murmurs or gallops, tachycardia Abdomen: Soft, nontender, nondistended, positive bowel sounds x4, obese Extremities: +2 pulses bilaterally radialis/ dorsalis pedis, no cyanosis, no edema Neuro: Awake alert oriented x3 Psych: Normal mood and affect G/U: No Corrigan Skin: no rashes, warm and dry Lymphatic: no cervical or axillary lymphadenopathy Results & Data Results & Data Vital Signs (Past 12 Hours) Vital Signs Temp Pulse Pulse Resp BP Pulse Ox Pulse Ox 06/23/24 11:39 37.3 C 103 H 18 180/92 H 97 06/23/24 10:59 105 H 20 97 06/23/24 10:00 94 H 18 181/92 H 98 06/23/24 08:00 83 16 153/87 H 98 06/23/24 07:20 06/23/24 07:02 81 06/23/24 07:00 85 135/77 98 06/23/24 05:50 67 18 98 06/23/24 03:49 72 16 137/88 96 06/23/24 03:49 96 06/23/24 03:37 68 06/23/24 03:00 72 14 137/88 96 06/23/24 01:00 70 17 145/81 H 98 O2 Del Method O2 Del Method 06/23/24 11:39 Room Air 06/23/24 10:59 Room Air 06/23/24 10:00 Room Air 06/23/24 08:00 Room Air 06/23/24 07:20 Room Air 06/23/24 07:02 06/23/24 07:00 Room Air 06/23/24 05:50 Room Air 06/23/24 03:49 Room Air 06/23/24 03:49 Room Air 06/23/24 03:37 06/23/24 03:00 Room Air 06/23/24 01:00 Room Air Laboratory Results 06/23/24 07:20 06/23/24 07:20 Coding Level of Care Code 45651 CRITICAL CARE 1ST 30-74M Diagnoses Myasthenia gravis in crisis G70.01 Ptosis H02.401 Laterality: right Dysphagia R13.10 BPH (benign prostatic hyperplasia) N40.0 (2) Ptosis Laterality: right Qualified Code(s): H02.401 - Unspecified ptosis of right eyelid
[2024-06-23 13:40] LABS: Thyroid Stimulating Hormone 2.977 uIu/ml (0.300-4.500)
--- NOTE | 2024-06-23 13:40 | Neurology Consultation ---
Date of Consultation June 23, 2024 Assessment & Plan (1) Myasthenia gravis with (acute) exacerbation: Giorgio Sosa is a 74 yo M with known generalized myasthenia gravis without history of respiratory crisis presenting with severe worsening dysphagia. He is unable and unsafe to swallow and his R ptosis is severe. He has not responded to IVIG in the past and therefore recommend transfer to [facility] for further management including consideration for plasma exchange. As he is on mestinon and prednisone and IV substitution is not possible, we recommend an NG tube for medication and nutrition. He should continue to take 20mg of prednisone daily as was his home dose. Also agree with mestinin at the current dose. No further IVIG, would prefer plasma exchange after transfer. Continue to monitor respiratory function though no respiratory involvement currently. -- NG tube for meds and nutrition -- Prednisone 20mg daily -- Mestininon 60mg TID -- Transfer to [facility] for plasma exachange -- Continue respiratory function monitoring Telehealth Consultation Telehealth Information Telehealth Information: I performed this visit using a real-time telehealth connection between my location and the patients location ([facility]). After connecting through interactive tele-video, patient was identified by name and date of and/or wristband check.Patient (or authorized healthcare goodwill representative) was informed that this was a telemedicine visit and it was being conducted confidentially over secure lines. My office door was closed and no one else was present in the room with me.Patient (or authorized healthcare goodwill representative) provided consent to proceed with the visit, expressed an understanding of privacy and security of the telemedicine visit, and gave permission to have a hospital goodwill representative in the room in order to assist with the visit and to conduct portions of the visit, as needed. I informed the patient (or authorized healthcare goodwill representative) that I reviewed their record and presented the opportunity for them to ask any questions regarding the visit today. The patient agreed to participate. History of Present Illness Reason for Consultation: Myasthenia exacerbation Requesting Physician: Dr. Bee Attending Physician: Jamie Bee, History of Present Illness Giorgio Sosa is a 74 yo M presenting with a myasthenia exacerbation. The patient has known myasthenia on prednisone and mestinon at home. He was diagnosed a few years ago which began with ocular symptoms, progressing to bulbar and then generalized, though he has never been intubated or had shortness of breath. He reports that he lowered his prednisone in April but throughout may gradually worsened and increased his prednisone back to 20mg daily. He also added mestinon. In the past when this happened he needed plasma exchange to improve as the IVIG was ineffective for him. He is currently unable to swallow and would like to be transferred to [facility], where he follows with Dr. Wright as an outpatient. Allergies Allergy/AdvReac Type Severity Reaction Status Date / Time RITHAMIN Allergy . Uncoded 05/03/12 16:05 Home Medications Medication Instructions Recorded Confirmed Type alendronate 70 mg tablet 70 mg PO WK 06/23/24 06/23/24 History finasteride 5 mg tablet 5 mg PO DAILY 06/23/24 06/23/24 History mirtazapine 15 mg tablet 15 mg PO HS 06/23/24 06/23/24 History prednisone 10 mg tablet 30 mg PO DAILY 06/23/24 06/23/24 History pyridostigmine bromide 60 mg tablet 60 mg PO Q4H 06/23/24 06/23/24 History sumatriptan succinate 100 mg tablet 100 mg PO UD 06/23/24 06/23/24 History tamsulosin 0.4 mg capsule 0.4 mg PO DAILY 06/23/24 06/23/24 History Patient History Social History Smoking Status: Never smoker Second Hand Exposure: No; Do You Dip or Chew Tobacco: No; Tobacco Cessation Education Requested by Patient: No Hx Alcohol Use: Yes Alcohol type: beer Hx Substance Use: No Preferred Language: Estonian Communication Ability: Effective Kitchen Food Server Required: No Beliefs That Will Affect Care: None Current Living Situation: Alone Other Information That Helps Us Care for You: No Feels Safe at Home: Yes Safety Concerns: Feels Safe At This Time Assistive Devices: Cane and Glasses Review of Systems +difficulty swallowing Physical Exam Neurological Examination: Mental Status: Awake and alert. Oriented to person, place, and time. Fluent. Comprehension intact. Affect appropriate. Cranial Nerves: II: fernandez grossly intact. VII: Facial expression symmetric, Severe R ptosis VIII: Hearing intact to voice IX/X: No palate movement XI: Shoulder shrug symmetric XII: Tongue midline Motor: Strength was symmetric and antigravity throughout. Pronator drift was absent. There were no abnormal movements. Gait: Able to stand with assistance of a cane. Results & Data Vital Signs (Past 12 Hours) Vital Signs Temp Pulse Pulse Resp BP Pulse Ox Pulse Ox 06/23/24 11:39 37.3 C 103 H 18 180/92 H 97 06/23/24 10:59 105 H 20 97 06/23/24 10:00 94 H 18 181/92 H 98 06/23/24 08:00 83 16 153/87 H 98 06/23/24 07:20 06/23/24 07:02 81 06/23/24 07:00 85 135/77 98 06/23/24 05:50 67 18 98 06/23/24 03:49 72 16 137/88 96 06/23/24 03:49 96 06/23/24 03:37 68 06/23/24 03:00 72 14 137/88 96 O2 Del Method O2 Del Method 06/23/24 11:39 Room Air 06/23/24 10:59 Room Air 06/23/24 10:00 Room Air 06/23/24 08:00 Room Air 06/23/24 07:20 Room Air 06/23/24 07:02 06/23/24 07:00 Room Air 06/23/24 05:50 Room Air 06/23/24 03:49 Room Air 06/23/24 03:49 Room Air 06/23/24 03:37 06/23/24 03:00 Room Air Laboratory Results Abnormal lab results 06/22/24 06/23/24 Range/Units 22:40 07:20 WBC 11.19 H (4.8-10.8) K/ul Neut # (Auto) 8.86 H (1.40-6.50) K/uL Crisp # (Auto) 0.68 H (0.11-0.59) K/uL Carbon Dioxide 33 H (21-32) mmol/L Alkaline Phosphatase 31 L (34-104) U/L Globulin 2.3 L (2.5-4.0) gm/dl
--- NOTE | 2024-06-23 14:09 | Discharge Summary ---
Discharge Summary Date of Service June 23, 2024 Principal Dx & Hospital Course #1 = Principal Diagnosis (1) Myasthenia gravis with (acute) exacerbation: Plan Patient presented to the emergency room with progressive symptoms associated with a flare of his myasthenia gravis with worsening ptosis of the right eye and difficulty swallowing pills. Patient was admitted to a monitored setting. After consultation with neurology was recommended that he be treated with IVIG. Despite treatment IVIG patient's symptoms continue to progress. He was unable to swallow at all and was even having a little bit of trouble managing his s ecretions. Noticed increasing paresthesias of his left cheek as well as increasing difficulty forming his words. Additionally, respiratory noted that he patient was having increasing difficulty and requiring increasing effort to reach 40 cmH2O on NIF testing. Patient's condition was discussed with neurology. Initially recommending possible transfer to neuro ICU at [facility]. Discussed transfer with neuro ICU. They recommended initially patient be continuing his treatment here with close monitoring in the ICU [facility]. Communication with Dr. Goodwin and he was agreeable to continue to monitor patient here. Subsequently patient had neuro televisit with Dr. Valderrama. Additional history from patient confirmed that he had not responded to IVIG in the past but had rapidly improved with plasmapheresis. The patient vital signs overall were stable and was felt that he did not immediately need ICU level care. Dr. Valderrama agreed to accept patient to [facility] on his service and to consider starting plasmapheresis. Transfer center again was contacted. They will be coordinating transfer to [facility] under the service of Dr. Valderrama, neurology. Patient was involved in this discussion, patient's daughter was also at bedside. They are both aware of plans for transfer. Due to the patient's need for nutrition and Mestinon and ongoing prednisone use. Discussed with the patient NG tube/Dobbhoff tube placement so these medications can be administered since she cannot swallow safely. If he will be transferred in the next few hours can hold on placing a Dobbhoff tube, however, if it appears that he may be here for extended period time prior to bed availability will place Dobbhoff tube so medications can be administered. Transfer to [facility] when bed available. Notes For Next Care Provider Continue with specialty care at [facility] Medication Changes From Visit Patient is on chronic prednisone for over 1 year Admission HPI Per Admitting Provider 72-year-old male with past medical history significant for prostate cancer, BPH, history of basal cell carcinoma, history of myasthenia gravis, history of ptosis of right eyelid, who lives alone and ambulates with a cane presents with because of myasthenia gravis flare. Patient was on prednisone taper in April. Has had symptoms of fatigue he went back to 10 mg daily in first week of May. On patient had vyvgart infusion and next dose was supposed to be in 06/26/2024. On Jun 11 2024 patient started having some difficulty swallowing, double vision ,right eye drooping and called the neurology, Nathan and his prednisone was increased to 20 mg daily. He was also started on Mestinon. As symptoms not getting better his Mestinon currently increased to 60 mg every 4 hours and also prednisone was increased 30 mg daily and and he had again vyvgart infusion on 06/22/2024 to see if it helps his symptoms. And tonight he had difficulty swallowing the Mestinon pills when he decided come to the ER. ER called the [facility] neurologist on-call and was recommended to start on IV Ig for now for 3 to 5 days and if there is no improvement or symptoms getting worse patient can be transferred for plasmapheresis. And also advised to check respiratory status every 4 hours. Patient currently resting comfortably and hemodynamically stable. His right eye is under patch. Denies any headache. Denies dizziness. No runny nose or sore throat. No cough. No earaches. No fever. Denies chest pain or shortness of breath. No nausea. No abdominal pain. Normal bowel and bladder movements. Past medical history. As mentioned above Past surgical history. Colonoscopy. Dental surgery. Prostate needle Punch biopsy. Bilateral cataracts. Tonsillectomy adenoidectomy. Skin lesion biopsy. Social history. No smoking. Alcohol occasional. No drug use. Family history. Sister had breast cancer. Hepatitis C cured. Migraines. Father had prostate cancer. Colon/bladder cancer. Dementia. Mother had diabetes. Hypertension. Pacemaker, CHF. Uncle had prostate cancer. Admission Exam Per Admitting Provider See H&P Discharge Exam Constitutional: Alert, no acute distress, nontoxic HEENT: Mucous membranes moist., Weak swallow reflex Lungs: Clear to auscultation, decreased, no wheezes rales or rhonchi CV: S1-S2, regular Abdomen: Soft, nontender, nondistended Extremities: No significant edema Neuro: Hip girdle muscle weakness, shuffling gait, right eye complete ptosis Psych: Cooperative, normal mood Updated Medication List Medication Instructions Recorded Confirmed Type alendronate 70 mg tablet 70 mg PO WK 06/23/24 06/23/24 History finasteride 5 mg tablet 5 mg PO DAILY 06/23/24 06/23/24 History mirtazapine 15 mg tablet 15 mg PO HS 06/23/24 06/23/24 History prednisone 10 mg tablet 30 mg PO DAILY 06/23/24 06/23/24 History pyridostigmine bromide 60 mg tablet 60 mg PO Q4H 06/23/24 06/23/24 History sumatriptan succinate 100 mg tablet 100 mg PO UD 06/23/24 06/23/24 History tamsulosin 0.4 mg capsule 0.4 mg PO DAILY 06/23/24 06/23/24 History Hospital Stay Data Consultations 06/23/24 00:58 ED Decision to Admit Stat 06/23/24 08:00 Consult Neurology Routine 06/23/24 12:53 Consult Market Master Routine Diagnostic Imagining Performed Reviewed imaging, laboratory and diagnostic studies. Pertinent findings as below. CBC within normal limits Carbon oxide 33, rest of BMP within normal limits Pending Results Patient Have Any Pending Studies at Discharge: Yes Discharge Instructions Given to Patient (Per Discharging Provider) Recommending transfer to [facility] in [place] to be evaluated for plasmapheresis and close neurological monitoring Total Time Total Time Spent Total Time Spent (In Minutes): 44
--- NOTE | 2024-06-23 14:46 | XRay Report ---
EXAM: X-ray chest one-view portable CLINICAL HISTORY: Follow-up PRIORS: Abdomen plain film today TECHNIQUE: Upright frontal view chest FINDINGS: A nasogastric tube is present with distal tip off of the inferior edge of the [id number]. Overlying medical wires projecting on the chest. The chest is well-expanded. No airspace consolidation, effusion or congestive changes. Cardiac silhouette mildly enlarged. No pneumothorax. Trachea is patent. Osseous structures demonstrate no acute abnormality. No radiopaque foreign body. IMPRESSION: No plain film evidence of an acute cardiopulmonary process. Electronically signed by Velvet Devries 06-23-2024 2:45 PM
--- NOTE | 2024-06-23 14:47 | XRay Report ---
EXAMINATION: X-ray KUB/abdomen 1 view CLINICAL HISTORY: NG tube placement PRIORS: None TECHNIQUE: Single frontal view abdomen FINDINGS: A nasogastric tube is present with distal tip in the expected position of the stomach. No subdiaphragmatic gas. A small to moderate amount of formed stool present throughout the colon. No dilated loops of bowel. No air-fluid levels. No acute osseous abnormality. IMPRESSION: Nasogastric tube with distal tip in the expected position of the stomach in the left upper quadrant. Electronically signed by Velvet Devries 06-23-2024 2:45 PM
[2024-06-23] MEDS: predniSONE 20 MG TAB NG SCH (15:45)
[2024-06-23 16:49] LABS: Appearance Urine Clear (Clear); Bilirubin Urine Negative (Negative); Blood Urine Negative (Negative); Color Urine Yellow; Glucose Urine UA Negative (Negative); Ketones Urine Negative (Negative); Leukocyte Esterase Urine Negative (Negative); Nitrite Urine Negative (Negative); Protein Urine Negative (Negative); Specific Gravity Urine 1.011 (1.000-1.030); Urobilinogen Urine Negative (Negative); pH Urine 7.5 (4.5-7.5)
[2024-06-23] MEDS: LORATADINE 10 MG TAB NG SCH (18:19)
[2024-06-23] MEDS: SCOPOLAMINE 1 MG/72 HR TDSY PATCH TD SCH (18:20)
[2024-06-23] MEDS: MIRTAZAPINE TAB 15 MG TAB PO SCH (20:34)
[2024-06-23] MEDS: ACETAMINOPHEN 325 MG TAB PO STA (21:08)
[2024-06-24] MEDS: CHECK SCOPOLAMINE PATCH PLACEMENT SCH (01:32)
[2024-06-24] MEDS: ALUMINUM/MAGNESIUM/SIMETH (MAALOX MAX) 30 ML UDC PO STA (01:32)
[2024-06-24 02:58] LABS: Basophils # (auto) 0.03 K/uL (0.00-0.20); Basophils % (auto) 0.3 %; Eosinophils # (auto) 0.01 K/uL (0.00-0.50); Eosinophils % (auto) 0.1 %; Hematocrit (blood only) 47.3 % (42.0-52.0); Hemoglobin 15.9 g/dl (14.0-18.0); Immature Granulocytes # (auto) 0.05 K/uL (0.01-0.20); Immature Granulocytes % (auto) 0.5 %; Lymphocytes # (auto) 0.72 K/uL (1.20-3.40); Lymphocytes % (auto) 7.1 %; Mean Corpuscular Hemoglobin 30.5 pg (25.0-34.0); Mean Corpuscular Hgb Conc 33.6 g/dL (32.0-36.0); Mean Corpuscular Volume 90.8 fL (80.0-100.0); Mean Platelet Volume 9.8 fL (9.4-12.4); Monocytes # (auto) 0.62 K/uL (0.11-0.59); Monocytes % (auto) 6.1 %; Neutrophils # (auto) 8.77 K/uL (1.40-6.50); Neutrophils % (auto) 85.9 %; Platelet Count 265 K/uL (130-400); RDW Coefficient of Variation 13.2 % (11.5-14.5); RDW Standard Deviation 43.9 fL (36.4-46.3); Red Blood Count 5.21 M/uL (4.70-6.10)
[2024-06-24 03:11] LABS: BUN Creatinine Ratio 18.1 (10-20); Calcium 8.2 mg/dl (8.6-10.3); Creatinine Clr Calc Pharmacy 86.7 ml/min; Magnesium 2.3 mg/dl (1.7-2.4); Phosphorus 3.8 mg/dl (2.5-4.9); Potassium 3.7 mmol/L (3.5-5.1)
[2024-06-24 03:18] LABS: Troponin I High Sensitivity 4.5 pg/ml (0-20)
[2024-06-24] MEDS: POTASSIUM CHLORIDE 20 MEQ/15 ML UDC NG STA (06:39)
--- NOTE | 2024-06-24 08:47 | Electrocardiogram Report ---
Test Reason : Blood Pressure : */* mmHG Vent. Rate : 59 BPM Atrial Rate : 59 BPM P-R Int : 132 ms QRS Dur : 74 ms QT Int : 436 ms P-R-T Axes : 24 -1 29 degrees QTcB Int : 431 ms Sinus bradycardia Low voltage QRS Borderline ECG When compared with ECG of 05-May-2022 16:01, Premature ventricular complexes are no longer Present Vent. rate has decreased by 29 bpm Confirmed by Andrae Liao ([id number]) on 06/24/2024 8:47:15 AM Referred By: Maksim Wright Confirmed By: Andrae Liao
== END 2024-06-24 08:18 | disposition short-term general hospital (02) | DRG 57 ==
LOC: ED 22:21 → EDINP 06-23 03:04 → 1E 06-23 03:49

== ENCOUNTER 2024-08-05 03:56 | Inpatient (IN) ==
--- OUTSIDE RECORDS SUMMARY | 2024-08-05 04:06 | External Medical Summary | Summary of Care ---
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 Active Fluticasone Propionate 50 MCG/ACT Nasal Suspension Administer 1 [place] into nostril as needed. Active FIBER ADULT GUMMIES 2 g CHEW Take 2 Each by mouth daily. Active Calcium-Vitamin D-Minerals 600-400 MG-UNIT Oral Tablet ChewableIndicati [...] the morning. 90 Capsule 3 4 Active Ketoconazole 2 % External CreamIndications :Seborrheic dermatitis Apply to dry skin on forehead, nose once daily 30 g 4 4 Active Additional Information Patient taking differently: PRN, Apply to dry skin on forehead, nose once daily, Reported on 07/25/2024 Mirtazapine 15 MG Oral Tablet (Remeron)Indicat ions:Adjustment insomnia Take 1 Tablet by mouth at bedtime. 90 Tablet 1 4 Active Finasteride 5 MG Oral Tablet (Proscar) Take 1 Tablet by mouth in the morning. 90 Tablet 3 5 Active predniSONE 10 MG Oral Tablet (Deltasone) Take 2 Tablets by mouth in the morning. 60 Tablet 4 5 Active pyRIDostigmine Alpha 60 MG Oral Tablet (Mestinon) Take 1 Tablet by mouth in the morning and 1 Tablet at noon and 1 Tablet in the evening and 1 Tablet before bedtime. 120 Tablet 2 5 Active documented as of this encounter (statuses as of 08/03/2024) Active Problems Problem Noted Date Diagnosed Date Myasthenia gravis 07/10/2024 Diplopia 12/14/2022 Myasthenia gravis with exacerbation, adult form 05/19/2022 Facial weakness 05/19/2022 Ptosis of right eyelid 05/07/2022 Elevated prostate specific antigen (PSA) 022 History of basal cell cancer 03/27/2019 Prostate cancer 04/28/2015 Overview (04/28/2015): t1c Small volume sayda 6 BPH with obstruction/lower urinary tract symptom s 06/30/2011 Family history of other cardiovascular diseases 08/06/2004 Overview (08/14/2015): ICD-10 update of inactive term Family history of malignant neoplasm of prostate 01/19/2001 Allergic rhinitis due to pollen documented as of this encounter (statuses as of 08/03/2024) Resolved Problems Problem Noted Date Diagnosed Date Resolved Date Prediabetes 06/26/2024 07/04/2024 Myasthenia gravis with exacerbation 12/14/2022 12/19/2023 Double vision 05/07/2022 07/10/2024 Overview (06/27/2024): Vertical Diplopia, chronic FH: prostate cancer 06/30/2011 07/10/19 25 Headache 10/13/2010 06/27/2024 Overview (08/13/2015): ICD-10 update of inactive term ADVANCE DIRECTIVE INFORMATION 12/30/2004 03/26/2024 Overview (12/30/2004): Yes, Patient instructed to provide copy of advance directive for provider to review and to be scanned into Electronic Medical Record Nonallopathic lesion of abdo men and other sites, not elsewhere classified 11/22/2003 06/30/19 12 documented as of this encounter (statuses as of 08/03/2024) Immunizations Name Administration Dates Next Due COVID-19 [...] e alcohol) occ PHQ-2 Answer Date Recorded PHQ Adult Total Score 0 06/29/2024 Hunger Vital Sign Answer Date Recorded Within the past 12 months, y ou worried that your food would run out before you got the money to buy more. Never true 06/29/19 25 Within the past 12 months, t he food you bought just didn't last and you didn't have money to get more. Never true 06/29/2024 Childcare Answer Date Recorded Do you feel overwhelmed with taking care of a child, family member or friend? No 06/29/2024 Does your family need help f inding childcare? (Household - for ages 0-17 years) Not on file 06/29/2024 Clothing Answer Date Recorded Have you been unable to get clothing when it was really needed? No 06/29/2024 Is your family able to get c lothes or diapers when needed? (Household - for ages 0-17 years) Not on file 06/29/2024 Personal Safety Answer Date Recorded Do you feel unsafe or have concerns for your saf ety? No 06/29/2024 Do you have concerns for you r family's safety? (Household - for ages 0-17 years) Not on file 06/29/2024 Utilities Answer Date Recorded Do you have trouble paying y our heating, water, or electric bill? No 06/29/2024 Is your family able to pay t he heat, water, or electric bill? (Household - for ages 0-17 years) Not on file 06/29/2024 Does your family have access to good internet? (Household - for ages 0-17 years) Not on file 06/29/2024 Employment Status Answer Date Recorded Are you unemployed or without regular income? No 06/29/2024 Does the household have a re gular source of income? (Household - for ages 0-17 years) Not on file 06/29/2024 Social Connections Answer Date Recorded How often do you feel lonely or isolated from th ose around you? Never 06/29/2024 Financial Resource Strain Answer Date R ecorded Do you have any trouble payi ng for your medications, or do you think you might in the future? No 06/29/2024 Does your family have troubl e paying for medicine? (Household - for ages 0-17 years) Not on file 06/29/2024 Transportation Needs Answer Date Record ed Do you have trouble getting a ride to medical visits or work? (Adult - for ages 18 years and over) Not on file 06/29/2024 Does your family have a hard time getting a ride to doctors visits? (Household - for ages 0-17 years) Not on file 06/29/2024 Has lack of transportation k ept you from medical appointments, meetings, work, or from getting things needed for daily living? Check all that apply. No 06/29/2024 Do you (or your family) have trouble finding or paying for a ride (transportation)? (Household - for ages 0-17 years) Not on file 06/29/2024 Housing Stability Answer Date Recorded Do you currently live in a s helter or have no steady place to sleep at night? No 06/29/2024 Do you think you are at risk of becoming homeless? (Adult - for ages 18 years and over) Not on file 06/29/2024 Does your family worry about paying for your home or becoming homeless? (Household - for ages 0-17 years) Not on file 0 06/29/2024 Are you homeless or worried that you might be in the future? No 06/29/2024 Are you (or your family) layla eless or worried that you might be in the future? (Household - for ages 0-17 years) Not on file Food Insecurity Answer Date Recorded Within the past 12 months, y ou worried that your food would run out before you got the money to buy more. Never true 06/29/19 25 Within the past 12 months, t he food you bought just didn't last and you didn't have money to get more. Never true 06/29/2024 Do you need food for this week? 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 Answer Date of Assessment Author No 06/24/2024 9:28 AM Marguerite Mack RN * Are you blind or do you have serious difficulty seeing, even when wearing glasses? Answer Date of Assessment Author Yes 06/24/2024 9:28 AM Marguerite Mack RN * Do you have serious difficulty walking or climbing stairs? (5 years old or older) Answer Date of Assessment Author No 06/24/2024 9:28 AM Marguerite Mack RN * Do you have difficulty dressing or bathing? (5 years old or older) Answer Date of Assessment Author No 06/24/2024 9:28 AM Marguerite Mack RN * Because of a physical, mental, or emotional condition, do you have difficulty doing errands alone such as visiting a doctors office or shopping? (15 years old or older) Answer Date of Assessment Author No 06/24/2024 9:28 AM Marguerite Mack RN documented as of this encounter Mental Status * Because of a physical, mental, or emotional condition, do you have serious difficulty concentrating, remembering, or making decisions? (5 years old or older) Answer Entry Date Author No 06/24/2024 9:28 AM Marguerite Mack RN documented in this encounter Miscellaneous Notes * Telephone Encounter - Paola Caraballo RN - 08/03/2024 9:53 AM EDT Order received for additional vyvgart cycle to start 08/13/24. [place] adjusted and routed for signature. Can send to scheduling once beacon is signed/ referral updated. Yunier: please ordere vyvgart- plan to start 08/13/24. Thanks! * Telephone Encounter - Babita Olvera DNP - 08/03/2024 9:49 AM EDT Noted * Telephone Encounter - Anette Tanner RPh - 08/03/2024 9:21 AM EDT Placed SCP to initiate next Vyvgart cycle on 08/13/24 (52 days from start of previous cycle) to prevent delays in treatment. Plan New Supportive Care Plan Treatment Ordered By: Other --- Protocol: SCP - EFGARTIGIMOD ONEYDA (VYVGART) [id number] --- Drug to be Infused: Vyvgart --- Dose: 10 mg/kg (max 1200 mg) every week x4 weeks --- Frequency: 10 mg/kg (max 1200 mg) every week x4 ... documented in this encounter Plan of Treatment Upcoming Encounters Date Type Department Care Team (Late st Contact Info) Description 08/10/2024 9:00 AM EDT Telemedicine Neurology [address] [place] [phone] Neto, Pharmacist Neurology [address] [facility] [place] [address] 08/23/2024 1:15 PM EDT Scheduled Telephone Neurology [address] [place] [address] Neuromuscular, Phone Nurse Neuro [address] [facility] [place] [address] 12/11/2024 11:15 AM EDT Office Visit Urology, [facility] [address] [facility] [address] [address] [address] Ramesh Phan MD [address] [address] 01/30/2025 3:00 PM EDT Office Visit Neurology [address] [place] [address] Maksim Wright MD [address] [facility] [place] [address] 02/07/2025 11:40 AM EDT Office Visit Family Practice [facility] [address] [facility] [place] [address] Theresa Johnson MD [address] [facility] [place] [place] [address] 05/30/2025 11:15 AM EST Office Visit Dermatology [facility] [address] [facility] [place] [place] [address] Marshall Henson MD [address] [place] [address] Scheduled Procedures Name Priority Associated Diagnoses Date/Ti me COLONOSCOPY FLEXIBLE PROXIMAL DIAGNOSTIC Recall History of colon polyps Health Maintenance Due Date Last Done Comments Cologuard 01/12/1997 Fecal Occult Blood Test 01/12/1997 Sigmoidoscopy 01/12/1997 Adult Wellness Visit 11/28/2019 11/27/2018 COVID-19 Vaccine ( season) 2024 02/23/2024, 07/13/2020, 06/13/2020 Colonoscopy 05/26/2025 05/26/2020, 08/2020, 04/10/2015, Additional history exists Colorectal Cancer Screening 05/26/2025 Depression Screening 06/29/2025 06/29/2024 Lipid Panel 03/03/2026 03/03/2021, 02/22, 02/09/2017, Additional [...] on patient's age to complete this topic Meningitis B Vaccine (Bexsero/Trumemba) Aged Out No longer eligible based on patient's age to complete this topic documented as of this encounter Medical Devices Implanted Type Area Tube Cleaning Operator Device Identifier Shelf Expiration Date Model / Serial / Lot Port Powerflow 9.6fr - [id number] Implanted:Qty : 1 on 03/15/2023 at [facility] CR [employer]ARD : PERIPHERAL VASCULAR [id number] 10/21/2023 [id number] / / [id number] Power Port 8fr Sngl Lumen Plas - [id number] Implanted:Qty : 1 on 03/15/2023 at [facility] CR [employer]ARD : PERIPHERAL VASCULAR [id number] 03/22/2024 [id number] / / [id number] Lens Li61ao 13.00mm 18.00 - [id number] - [id number] Implanted:Qty : 1 on 02/02/2024 by Andre Swartz MD at [facility] Right: Eye [employer] LOMB 08/20/2028 [id number] / [id number] / [id number] Lens Li61ao 13.00mm 17.50 - [id number] - [id number] Implanted:Qty : 1 on 02/16/2024 by Andre Swartz MD at [facility] Left: Eye BAUSCH & LOMB 07/20/2028 [id number] / [id number] / [id number] documented as of this encounter Visit Diagnoses Diagnosis Myasthenia gravis (HCC) Myasthenia gravis without exacerbation documented in this encounter Advance Directives Documents on File Type Date Recorded Patient Bung Driver Expl anation Power of Typewriter Aligner 06/20/2018 POWER OF A TTORNEY POA: EDEL- DAUGHTER, GERALD-SON * Full Code (Latest Code Status on File) Date Activated Date Inactivated Comments 06/24/2024 11:50 AM 06/27/2024 7:40 PM This order re flects the patients wishes and were consensually agreed upon. Question Answer Comments Discussion of Advance Directives occurred with: Patient * Full Code Date Activated Date Inactivated Comments 06/24/2024 9:38 AM 06/24/2024 11:50 AM This order re flects the patients wishes and were consensually agreed upon. Question Answer Comments Discussion of Advance Direct cooper occurred with: Not Discussed due to patient's condition Does the patient have Health Care Power of Typewriter Aligner? Yes, in chart and reviewed as current * Full Code Date Activated Date Inactivated Comments 02/16/2024 8:37 [...] Power of Attor ephraim? No Care Teams Crop Grain Or Livestock Farmer Relationship Specialty Start Date End Date Theresa Johnson MD [address] [place] [address] PCP - General Family Medicine 12/19/23 documented as of this encounter
--- OUTSIDE RECORDS SUMMARY | 2024-08-05 04:06 | External Medical Summary | Summary of Care ---
Author Name Unknown Organization [facility] Address [address] [place] [address] Phone [phone] Care Team Providers Care Marketer Name Role Phone Theresa Johnson MD Primary Care Provider [phone] Encounter Details Date Type Department Care Team (Late st Contact Info) Description 08/03/2024 Telephone Neurology [address], [address] [place] [address] Babita Olvera, DNP [address] [place] [address] Allergies Active Allergy Reactions Criticality Noted Date Comments Benzalkonium Chloride 02/21/2015 Merthiolate "the orange kind" Caused a rash documented as of this encounter (statuses as of 08/03/2024) Medications ALEVE 220 MG PO CAPS Take 1 Capsule by mouth daily as needed. Active Fluticasone Propionate 50 MCG/ACT Nasal Suspension Administer 1 [place] into nostril as needed. Active FIBER ADULT [...] morning. 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 [place] adjusted and routed for signature. Can send [...] --- Protocol: SCP - EFGARTIGIMOD ONEYDA (VYVGART) [id number] --- Drug to be Infused: Vyvgart --- [...] [place] [phone] Neto, Pharmacist Neurology [address] [facility] [place] [address] 08/23/2024 1:15 PM EDT Scheduled Telephone Neurology [address] [place] [phone] Neuromuscular, Phone Nurse Neuro [address] [facility] [place] [address] 12/11/2024 11:15 AM EDT Office Visit Urology, [facility] [address] [facility] [place] [address] Ramesh Phan MD [address] [address] 01/30/2025 3:00 PM EDT Office Visit Neurology [address] [place] [address] Maksim Wright MD [address] [facility] [place] [address] 02/07/2025 11:40 AM EDT Office Visit Family Practice [facility] [address] [facility] [place] [address] Theresa Jhonson MD [address] [facility] [place] [address] 05/30/2025 11:15 AM EST Office Visit Dermatology [facility] [address] [facility] [place] [address] Marshall Henson MD [address] [place] [address] Scheduled Procedures Name Priority Associated Diagnoses Date/Ti [...] encounter Medical Devices Implanted Type Area Supervisor Pile Driving Device Identifier Shelf Expiration Date Model / Serial / Lot Port Powerflow 9.6fr - [id number] Implanted:Qty : 1 on 03/15/2023 at [facility] CR BARD : PERIPHERAL VASCULAR [id number] 10/21/2023 [id number] / / [id number] Power Port 8fr Sngl Lumen Plas - [id number] Implanted:Qty : 1 on 03/15/2023 at [facility] CR BARD : PERIPHERAL VASCULAR [id number] 03/22/2024 [id number] / / [id number] Lens Li61ao 13.00mm 18.00 - [id number] - [id number] Implanted:Qty : 1 on 02/02/2024 by Andre Swartz MD at [facility] Right: Eye BAUSCH & LOMB 08/20/2028 [id number] / [id number] / [id number] Lens Li61ao 13.00mm 17.50 - [id number] - [id number] Implanted:Qty : 1 on 02/16/2024 by Andre Swartz MD at [facility] Left: Eye BAUSCH & LOMB 07/20/2028 [id number] / [id number] / [id number] documented as of this encounter Visit Diagnoses Diagnosis Myasthenia gravis (HCC) Myasthenia gravis without exacerbation documented in this encounter Advance Directives Documents on File Type Date Recorded Patient Content Strategy Lead Expl anation Power of Peritoneal Dialysis Registered Nurse 06/20/2018 POWER OF A TTORNEY POA: EDEL- [...] the patient have Health Care Power of Peritoneal Dialysis Registered Nurse? Yes, in chart and reviewed as current [...] Power of Attor ephraim? No Care Teams Marketer Relationship Specialty Start Date End Date Theresa Johnson MD [address] [place] [address] PCP - General Family Medicine 12/19/23 documented as of this encounter
--- OUTSIDE RECORDS SUMMARY | 2024-08-05 04:06 | External Medical Summary ---
Author Name Unknown Address Unknown Organization K09[facility] [place] [address] Laboratory Report Ordering Provider Test Date Status ELIZABETH RAY 07/30/2024 11:08:38 Final Observation Date Value Abnormality Reference (Units ) Status WBC, Total 07/30/2024 11:08:38 12.20 Above high normal 4 .00-10.80 (K/uL) Final RBC 07/30/2024 11:08:38 4.68 4.50-5.25 (M/uL) Final Hemoglobin 07/30/2024 11:08:38 14.6 14.0-16.8 (g/dL) Final HCT 07/30/2024 11:08:38 44.9 40.0-48.4 (%) Final MCV 07/30/2024 11:08:38 95.9 82.0-99.5 (fL) Final MCH 07/30/2024 11:08:38 31.2 27.0-34.0 (pg) Final MCHC 07/30/2024 11:08:38 32.5 32.0-36.0 (g/dL) Final RDW 07/30/2024 11:08:38 14.5 11.5-15.5 (%) Final Platelets 07/30/2024 11:08:38 239 140-400 (K /uL) Final MPV 07/30/2024 11:08:38 9.9 6.6-11.1 ( fL) Final Performing Location [facility] [place] [address]
--- OUTSIDE RECORDS SUMMARY | 2024-08-05 04:06 | External Medical Summary ---
Author Name Unknown Address Unknown Organization K09[facility] [place] [address] Laboratory Report Ordering Provider Test Date Status ELIZABETH RAY 07/30/2024 11:08:38 Final Observation Date Value Abnormality Reference (Units ) Status Nucleated erythrocytes/100 leukocytes [Ratio] in Blood by Automated count 07/30/2024 11:08:38 Final Performing Location [facility] [place] [address]
--- OUTSIDE RECORDS SUMMARY | 2024-08-05 04:06 | External Medical Summary | Summary of Care ---
Author Name Unknown Organization [facility] Address [address] [place] [address] Phone [phone] Care Team Providers Care Custodian Athletic Equipment Name Role Phone Theresa oJhnson MD Primary Care Provider [phone] Reason for Visit * Reason Comments Infusion Vygart * Episode Based Medications (Routine) - Authorized Specialty Diagnoses / Procedures Referred By Contlai t Referred To Contact Diagnoses Myasthenia gravis with exacerbation, adult form (HCC) Procedures [place] INJECTION, EFGARTIGIMOD EVANGELINA-FCAB, 2MG Maksim Wright MD [address] [place] [address] Phone: tel: fax: Hematology/Oncology Treatment, [address] [place] [address] Phone: tel: fax: Referral ID Status Reason Start Date Expiration Date V isits Requested Visits Authorized [id number] Authorized 11/04/2023 11/03/2024 99 99 Encounter Details Date Type Department Care Team (Latest Contact Info) Description 07/06/2024 9:30 AM EST Hem/Onc Treatment Hematology/Oncology Treatment, [address] [place] [address] Krista, Chair [address] On[address] [place] [address] Myasthenia gravis with exacerbation, adult form (HCC)* Allergies Active Allergy Reactions Criticality Noted Date Comments Benzalkonium Chloride 02/21/2015 Merthiolate "the orange kind" Caused a rash documented as of this encounter (statuses as of 07/30/2024) Medications ALEVE 220 MG PO CAPS Take 1 Capsule by mouth daily as needed. Active Fluticasone Propionate 50 MCG/ACT Nasal Suspension Administer 1 [place] into nostril as needed. Active FIBER ADULT GUMMIES 2 g CHEW Take 2 Each by mouth daily. Active Calcium-Vitamin D-Minerals 600-400 MG-UNIT Oral Tablet ChewableIndicat ions:Myasthenia gravis (HCC) Take 1 tablet in the morning daily 30 Tablet 5 06/08/19 23 Active Alendronate Sodium 70 MG Oral Tablet (Fosamax)Indica tions:High risk for fracture due to osteoporosis by DEXA scan Take 1 Tablet by mouth once a week. with 8 oz. water 30 minutes before first meal of the day. Remain upright for 30 min after taking tablet 12 Tablet 3 03/13/20 24 Active Tamsulosin HCl 0.4 MG Oral Capsule (Flomax)Indicat ions:BPH with obstruction/low er urinary tract symptoms Take 1 Capsule by mouth in the morning. 90 Capsule 3 03/19/20 24 Active Ketoconazole 2 % External CreamIndication s:Seborrheic dermatitis Apply to dry skin on forehead, nose once daily 30 g 4 05/04/20 24 Active Mirtazapine 15 MG Oral Tablet (Remeron)Indica tions:Adjustmen t insomnia Take 1 Tablet by mouth at bedtime. 90 Tablet 1 05/14/20 24 Active Finasteride 5 MG Oral Tablet (Proscar) Take 1 Tablet by mouth in the morning. 90 Tablet 3 06/04/19 25 Active predniSONE 10 MG Oral Tablet (Deltasone) Take 2 Tablets by mouth in the morning. 60 Tablet 4 06/11/19 25 Active Scopolamine 1 MG/3DAYS Transdermal Patch 72 Hour (Transderm-Scop ) Place 1 patch topically on the skin for 72 hours maximum. May replace every 3 days. 3 Patch 03/19/20 24 025 Discontinued(M edication List Clean Up) pyRIDostigmine [place] 60 MG Oral Tablet (Mestinon) Take 1 Tablet by mouth in the morning and 1 Tablet at noon and 1 Tablet before bedtime. 90 Tablet 4 06/11/19 25 025 Discontinued pyRIDostigmine [place] 60 MG Oral Tablet (Mestinon) Take 1 Tablet by mouth every 6 hours. 120 Tablet 5 3:17 PM EST 06/27/19 25 025 Discontinued(M edication List Clean Up) predniSONE 10 MG Oral Tablet (Deltasone) Take 3 Tablets by mouth in the morning. 90 Tablet 5 3:17 PM EST 06/27/19 25 025 Discontinued(M edication List Clean Up) Mirtazapine 15 MG Oral Tablet (Remeron) Take 1 Tablet by mouth at bedtime for 10 days. 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 on file Not on file documented as of this encounter Last Filed Vital Signs Vital Sign Reading Time Taken Comments Blood Pressure 106/60 07/06/2024 9:42 AM EST Pulse 83 07/06/2024 9:42 AM EST Temperature 36.5 C (97.7 F) 07/06/2024 9:42 AM ES T Respiratory Rate 18 07/06/2024 9:42 AM EST Oxygen Saturation 97% 07/06/2024 9:42 AM EST Inhaled Oxygen Concentration - - Weight - - Height - - Body Mass Index - - documented in this encounter Functional Status * Are you [...] Entry Date Author No 06/24/2024 9:28 AM Marguertie Mack RN documented in this encounter Nursing Notes * Azucena Sarmiento LPN - 07/06/2024 9:43 AM EST 0935: Pt arrived for Vygart infusion. PIV in R metacarpal. Pt tolerated well. VSS. Pt has no complaints at this time. Patient instructed on use of heat and massage functions where applicable. Patient shown how to operate the heat function of the chair and to alert nursing staff if the chair feels too warm. Patient instructed on the risk of potential rodriguez while using the heat function. 1105: Pt tolerated Vygart infusion well. PIV removed intact. Pt to return in one week. Discharged in stable condition. documented in this encounter Plan of Treatment Upcoming Encounters Date Type Department Care Team (Late st Contact Info) Description 08/03/2024 9:00 AM EDT Telemedicine Neurology [address] [place] [phone] Neto, Pharmacist Neurology [address] [place] [place] [address] 08/23/2024 1:15 PM EDT Scheduled Telephone Neurology [address] [place] [address] Neuromuscular, Phone Nurse Neuro [address] [place] [address] 12/11/2024 11:15 AM EDT Office Visit Urology, [facility] [address] [facility] [address] Ramesh Phan MD [address] [place] [address] 01/30/2025 3:00 PM EDT Office Visit Neurology [address] [place] [address] Maksim Wright MD [address] [facility] [id number] 02/07/2025 11:40 AM EDT Office Visit Family Practice [facility] [address] [place] [address] Theresa Johnson MD [address] [place] [address] 05/30/2025 11:15 AM EST Office Visit Dermatology [facility] [address] [place] [address] Marshall Henson MD [address] [place] [address] Scheduled Procedures Name Priority Associated Diagnoses Date/Ti [...] this encounter Medical Devices Implanted Type Area Truss Builder Device Identifier Shelf Expiration Date Model / Serial / Lot Port Powerflow 9.6fr - [id number] Implanted:Qty : [facility] : PERIPHERAL VASCULAR [id number] 10/21/2023 [id number] / / [id number] Power Port 8fr Sngl Lumen Plas - [id number] Implanted:Qty : 1 on 03/15/2023 at [facility] CR BARD : PERIPHERAL VASCULAR [id number] 03/22/2024 [id number] / / [id number] Lens Li61ao 13.00mm 18.00 - [id number] - [id number] Implanted:Qty : 1 on 02/02/2024 by Anrde Swartz MD at [facility] Right: Eye BAUSCH & LOMB 08/20/2028 [id number] / [id number] / [id number] Lens Li61ao 13.00mm 17.50 - [id number] - [id number] Implanted:Qty : 1 on 02/16/2024 by Andre Swartz MD at [facility] Left: Eye BAUSCH & LOMB 07/20/2028 [id number] / [id number] / [id number] documented as of this encounter Visit Diagnoses Diagnosis Myasthenia gravis with exacerbation, adult form (HCC)- Primary Myasthenia gravis with exacerbation documented in this encounter Administered Medications Inactive Administered Medications - up to 3 most recent administrations Medication Order MAR Action Action Date Dose Rate Site Efgartigimod evangelina-fcab (Vyvgart) 800 mg in NSS 125 mL infusion 800 mg, IV Piggyback, ONCE, 1 dose, On Tue07/06/24 at 1030, In NSS Note: VOLUME TO BE INFUSED 125 ML Infuse over 1 hour via a 0.2 micron in-line filter; do not administer as IV push or bolus. Following administration, flush entire line with NS.Indications:Myasthenia gravis with exacerbation, adult form (HCC) Start Infusion 07/06/2024 9:58 AM EST 800 mg 125 mL/hr NSS infusion Intravenous, at 50 mL/hr, PRN, Starting on Tue07/06/24 at 1030, Until Tue07/06/24 at 1513, Maintenance lineIndications:Myasthenia gravis with exacerbation, adult form (HCC) Start Infusion 07/06/2024 9:36 AM EST 50 mL/hr documented in this encounter Advance Directives Documents on File Type Date Recorded Patient Resolution Manager Expl anation Power of Wash Driller Helper 06/20/2018 POWER OF A TTORNEY POA: [...] the patient have Health Care Power of Wash Driller Helper? Yes, in chart and reviewed as current [...] Power of Attor ephraim? No Care Teams Custodian Athletic Equipment Relationship Specialty Start Date End Date Theresa Johnson MD [address] [place] [address] PCP - General Family Medicine 12/19/23 documented as of this encounter
--- OUTSIDE RECORDS SUMMARY | 2024-08-05 04:06 | External Medical Summary ---
Author Name Unknown Address Unknown Organization K09:[facility] [address] [place] [address] Laboratory Report Ordering Provider Test Date Status ELIZABETH RAY 07/30/2024 11:08:38 Final Observation Date Value Abnormality Reference (Units ) Status BUN 07/30/2024 11:08:38 16 6-20 (mg/dL) Final Creatinine 07/30/2024 11:08:38 1.1 0.6-1.2 (mg/dL) Final Glomerular filtration rate/1.73 sq M.predicted [Volume Rate/Area] in Serum, Plasma or Blood by Creatinine-based formula (CKD-EPI) 07/30/2024 11:08:38 72 >=60 (mL/min) Final eGFR is calculated based on the CKD-EPI 2020 equation. Sodium 07/30/2024 11:08:38 145 135-146 (m mol/L) Final Potassium 07/30/2024 11:08:38 4.0 3.5-5.1 (m mol/L) Final Cl 07/30/2024 11:08:38 106 98-107 (mm ol/L) Final CO2 07/30/2024 11:08:38 29 22-32 (mmo l/L) Final Anion gap 07/30/2024 11:08:38 10 7-15 (mmol /L) Final Glucose 07/30/2024 11:08:38 99 70-120 (mg /dL) Final Albumin 07/30/2024 11:08:38 4.7 3.8-5.0 (g /dL) Final AST (Aspartate aminotransferase) 07/30/2024 11:08:38 21 10-50 (U/L) Fin al Alk Phos 07/30/2024 11:08:38 34 Below low normal 35- 130 (U/L) Final Bilirubin, Total 07/30/2024 11:08:38 0.5 <=1 .2 (mg/dL) Final Calcium 07/30/2024 11:08:38 10.0 8.4-10.2 ( mg/dL) Final Protein 07/30/2024 11:08:38 5.9 Below low normal 6.0 -8.3 (g/dL) Final ALT (Alanine aminotransferase) 07/30/2024 11:08:38 25 10-50 (U/L) Noel mendoza Performing Location [facility] [place] [address]
--- OUTSIDE RECORDS SUMMARY | 2024-08-05 04:06 | External Medical Summary | Summary of Care ---
Author Name Unknown Organization [facility] Address [address] [place] [address] Phone [phone] Care Team Providers Care Flight Kitchen Manager Name Role Phone Theresa Johnson MD Primary Care Provider [phone] Encounter Details Date Type Department Care Team (Late st Contact Info) Description 08/03/2024 Telephone Neurology [address], [place] [address] [place] [address] Babita Olvera, DNP [address] [place] [address] Allergies Active Allergy Reactions Criticality Noted Date Comments Benzalkonium Chloride 02/21/2015 Merthiolate "the orange kind" Caused a rash documented as of this encounter (statuses as of 08/03/2024) Medications ALEVE 220 MG PO CAPS Take 1 Capsule by mouth daily as needed. Active Fluticasone Propionate 50 MCG/ACT Nasal Suspension Administer 1 [place] into nostril as needed. Active FIBER ADULT [...] morning. 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 [place] adjusted and routed for signature. Can send [...] --- Protocol: SCP - EFGARTIGIMOD [place] (VYVGART) [id number] --- Drug to be Infused: Vyvgart --- [...] [phone] Neto, Pharmacist Neurology [address] [facility] [place] [address] 08/23/2024 1:15 PM EDT Scheduled Telephone Neurology [address] [place] [phone] Neuromuscular, Phone Nurse Neuro [address] [facility] [place] [address] 12/11/2024 11:15 AM EDT Office Visit Urology, [facility] [address] [facility] [place] [address] Ramesh Phan MD [address] [address] 01/30/2025 3:00 PM EDT Office Visit Neurology [address] [place] [address] Maksim Wright MD [address] [facility] [place] [address] 02/07/2025 11:40 AM EDT Office Visit Family Practice [facility] [address] [facility] [place] [address] Theresa Johnson MD [address] [facility] [place] [place] [address] 05/30/2025 11:15 AM EST Office Visit Dermatology [facility] [address] [facility] [place] [address] Marshall Henson MD [address] [place] [address] Scheduled Procedures Name Priority Associated Diagnoses Date/Ti [...] this encounter Medical Devices Implanted Type Area Trimmer Climber Device Identifier Shelf Expiration Date Model / Serial / Lot Port Powerflow 9.6fr - [id number] Implanted:Qty : 1 on 03/15/2023 at [facility] CR BARD : PERIPHERAL VASCULAR [id number] 10/21/2023 [id number] / / [id number] Power Port 8fr Sngl Lumen Plas - [id number] Implanted:Qty : 1 on 03/15/2023 at [facility] CR BARD : PERIPHERAL VASCULAR [id number] 03/22/2024 [id number] / / [id number] Lens Li61ao 13.00mm 18.00 - [id number] - [id number] Implanted:Qty : 1 on 02/02/2024 by Andre Swartz MD at [facility] Right: Eye BAUSCH & LOMB 08/20/2028 [id number] / [id number] / [id number] Lens Li61ao 13.00mm 17.50 - [id number] - [id number] Implanted:Qty : 1 on 02/16/2024 by Andre Swartz MD at [facility] Left: Eye BAUSCH & LOMB 07/20/2028 [id number] / [id number] / [id number] documented as of this encounter Visit Diagnoses Diagnosis Myasthenia gravis (HCC) Myasthenia gravis without exacerbation documented in this encounter Advance Directives Documents on File Type Date Recorded Patient Vamp Cut Out Worker Expl anation Power of Captain Waiter/Waitress 06/20/2018 POWER OF A TTORNEY POA: EDEL- [...] the patient have Health Care Power of Captain Waiter/Waitress? Yes, in chart and reviewed as current [...] Power of Attor ephraim? No Care Teams Flight Kitchen Manager Relationship Specialty Start Date End Date Theresa Johnson MD [address] [place] [address] PCP - General Family Medicine 12/19/23 documented as of this encounter
--- OUTSIDE RECORDS SUMMARY | 2024-08-05 04:06 | External Medical Summary | Summary of Care ---
Author Name Unknown Organization [facility] Address [address] [facility] [place] [address] Phone [phone] Care Team Providers Care Government Relations Analyst Name Role Phone Theresa Johnson MD Primary Care Provider [phone] Reason for Visit * Reason Comments Dosage Adjustment Via Phone (anticoag Cl inic) Encounter Details Date Type Department Care Team (Late st Contact Info) Description 07/27/2024 9:00 AM EST Telemedicine Neurology [address]enny John, [place] [address] [place] [address] Nathan, Pharmacist Neurology [address] [place] [address] Myasthenia gravis (HCC)* Allergies Active Allergy Reactions Criticality Noted Date Comments Benzalkonium Chloride 02/21/2015 Merthiolate "the orange kind" Caused a rash documented as of this encounter (statuses as of 07/27/2024) Medications ALEVE 220 MG PO CAPS Take 1 Capsule by mouth daily as needed. Active Fluticasone Propionate 50 MCG/ACT Nasal Suspension Administer 1 [place] into nostril as needed. Active FIBER ADULT [...] morning. 60 Tablet 4 5 Active pyRIDostigmine [place] 60 MG Oral Tablet (Mestinon) Take 1 Tablet by mouth in the morning and 1 Tablet at noon and 1 Tablet in the evening and 1 Tablet before bedtime. 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 Patient Symptom Assessment [facility] Neurology Patient location: HOME. I was in a hospital or clinic location. After connecting through televideo,patient was verified with two unique identifiers. Patient (or authorized legal entry level account representative) was then informed that this was a Telemedicine visit and being conducted confidentially over secure lines. Methods to assure confidentiality were taken. Patient acknowledged consent and understanding of pr ivacy and security of the Telemedicine visit. The patient agreed to participate. Time spent naturalization examiner: 9 minutes. Vyvgart Dosing - Cycle 1 -09/16/23, 09/23/23, 09/30/23 , 10/07/23 Cycle 2- 11/14/23, 11/21/23, 11/28/23, 12/05/23 Cycle 3- 01/12/24, 01/19/24, 01/26/24, 02/01/24 Cycle 4 - 03/12/24, 03/19/24, 03/26/24, 04/02/24 Cycle 5 - 05/03/24, 05/11/24, 05/21/24, 05/28/24 Cycle 6- 06/22/23, 07/06/24, 07/13/24, 07/20/24 Baseline MG-ADL completed on 09/02/23: 6 MG-ADL on 06/15/24: Talkin [place] Swallowin Breathin Impairment of ability to brush teeth of comb hair: 0 Impairment of ability to arise from chair: 1 Double vision: 2- double vision while watching tv or reading Eyelid droop: 3- constant on left eyelid Total Score: 6 Patient is doing well so far. Volunteering for half a shift and plans to increase volunteering for a full shift within a few weeks. Long-term plan is to build up to full shift of volunteering and going to the gym. Patient is interested in the Vygart Hytrulo injections after the next 2-3 cycle infusions. Plan to revisit conversation in 4-6 months to provide information on injection process and start prior auth if patient is interested in the change. Patient requests orders to be placed on 08/03 for an infusion on 08/13 to account for scheduling of infusion. Patient does not want any gaps in therapy at this time d/t previous hospitalization. Plan for next cycle planning once MG-ADL reaches 5 at least 50 days after Day 1 of last cycle: no sooner than 08/11/24. Patient was advised to contact the clinic in the meantime with any questions or concerns. Follow up: one week follow up completion of MG-ADL Lukasz GrecoD Clinical Pharmacist, Neurology Medication Therapy Disease Management 07/27/2024, 8:45 AM documented in this encounter Plan of Treatment Upcoming Encounters Date Type Department Care Team (Late st Contact Info) Description 08/03/2024 9:00 AM EDT Telemedicine Neurology [address] [place] [phone] Nathan, Pharmacist Neurology [address] [facility] [place] [address] 08/23/2024 1:15 PM EDT Scheduled Telephone Neurology [address] [place] [address] Neuromuscular, Phone Nurse Neuro [address] [place] [address] 12/11/2024 11:15 AM EDT Office Visit Urology, [facility] [address] [facility] [place] [address] Ramesh Phan MD [address] [address] 01/30/2025 3:00 PM EDT Office Visit Neurology [address] [place] [address] Maksim Wright MD [address] [facility] [place] [id number] 02/07/2025 11:40 AM EDT Office Visit Family Practice [facility] [address] [place] [address] Theresa Johnson MD [address] [place] [address] 05/30/2025 11:15 AM EST Office Visit Dermatology [facility] [address] [place] [address] Marshall Henson MD [address] [place] [address] Scheduled Procedures Name Priority Associated Diagnoses Date/Ti [...] this encounter Medical Devices Implanted Type Area Long Lines Operator Device Identifier Shelf Expiration Date Model / Serial / Lot Port Powerflow 9.6fr - [id number] Implanted:Qty : 1 on 03/15/2023 at [facility] CR BARD : PERIPHERAL VASCULAR [id number] 10/21/2023 [id number] / / [id number] Power Port 8fr Sngl Lumen Plas - [id number] Implanted:Qty : 1 on 03/15/2023 at [facility] CR BARD : PERIPHERAL VASCULAR [id number] 03/22/2024 [id number] / / [id number] Lens Li61ao 13.00mm 18.00 - [id number] - [id number] Implanted:Qty : 1 on 02/02/2024 by Andre Swartz MD at [facility] Right: Eye BAUSCH & LOMB 08/20/2028 [id number] / [id number] / [id number] Lens Li61ao 13.00mm 17.50 - [id number] - [id number] Implanted:Qty : 1 on 02/16/2024 by Andre Swartz MD at [facility] Left: Eye BAUSCH & LOMB 07/20/2028 [id number] / [id number] / [id number] documented as of this encounter Visit Diagnoses Diagnosis Myasthenia gravis (HCC)- Primary Myasthenia gravis without exacerbation documented in this encounter Advance Directives Documents on File Type Date Recorded Patient Imaging Technologist Expl anation Power of Home Theater Specialist 06/20/2018 POWER OF A TTORNEY POA: [...] the patient have Health Care Power of Home Theater Specialist? Yes, in chart and reviewed as current [...] Power of Attor ephraim? No Care Teams Government Relations Analyst Relationship Specialty Start Date End Date Theresa Johnson MD [address] [facility] [place] [address] PCP - General Family Medicine 12/19/23 documented as of this encounter
--- OUTSIDE RECORDS SUMMARY | 2024-08-05 04:06 | External Medical Summary | Summary of Care ---
Author Name Unknown Organization [facility] Address [address] [facility] [place] [address] Phone [phone] Care Team Providers Care Repairer Kiln Car Name Role Phone Theresa Johnson MD Primary Care Provider Reason for Visit * Reason Comments Outpatient Testing Encounter Details Date Type Department Care Team (Late st Contact Info) Description 07/30/2024 11:10 AM EDT Laboratory Laboratory [facility] [place] [address] [place] [phone] [facility] Lab Scen[address] [place] [address] Current chronic use of systemic steroids; Pre-diabetes Allergies Active Allergy Reactions Criticality Noted Date Comments Benzalkonium Chloride 02/21/2015 Merthiolate "the orange kind" Caused a rash documented as of this encounter (statuses as of 07/30/2024) Medications ALEVE 220 MG PO CAPS Take 1 Capsule by mouth daily as needed. Active Fluticasone Propionate 50 MCG/ACT Nasal Suspension Administer 1 Cool into nostril as needed. Active FIBER ADULT [...] morning. 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 file [...] Marguerite Mack RN documented in this encounter Plan of Treatment Upcoming Encounters Date Type Department Care Team (Late st Contact Info) Description 08/03/2024 9:00 AM EDT Telemedicine Neurology [address] [place] [phone] Nathan Pharmacist Neurology [address] [place] [address] [place] [address] 08/23/2024 1:15 PM EDT Scheduled Telephone Neurology Nathan [address] [place] [phone] Neuromuscular, Phone Nurse Neuro [address] [place] [address] 12/11/2024 11:15 AM EDT Office Visit Urology, [facility] [address] [facility] [place] [address] Ramesh Phan MD [address] [place] [address] 01/30/2025 3:00 PM EDT Office Visit Neurology Nathan [address] [place] [phone] Maksim Wright MD [address] [place] [address] 02/07/2025 11:40 AM EDT Office Visit Family Practice [facility] [address] [facility] [place] [address] Theresa Johnson MD 200 [facility] [place] [address] 05/30/2025 11:15 AM EST Office Visit Dermatology [facility] 200 [facility] [place] [address] Marshall Henson MD 200 [facility] [place] [address] Pending Results Name Type Priority Associated Diagnoses Date /Time HEMOGLOBIN A1C Lab Routine Current chronic use of systemic steroids Pre-diabetes 07/30/2024 11:08 AM EDT Scheduled Procedures Name Priority Associated Diagnoses Date/Ti [...] this encounter Medical Devices Implanted Type Area Academy Education Director Device Identifier Shelf Expiration Date Model / Serial / Lot Port Powerflow 9.6fr - [id number] Implanted:Qty : 1 on 03/15/2023 at [facility] CR [facility] : PERIPHERAL VASCULAR [id number] 10/21/2023 [id number] / / [id number] Power Port 8fr Sngl Lumen Plas - [id number] Implanted:Qty : 1 on 03/15/2023 at [facility] CR BARD : PERIPHERAL VASCULAR [id number] 03/22/2024 [id number] / / [id number] Lens Li61ao 13.00mm 18.00 - [id number] - [id number] Implanted:Qty : 1 on 02/02/2024 by Andre Swartz MD at [facility] Right: Eye BAUSCH & LOMB 08/20/2028 [id number] / [id number] / [id number] Lens Li61ao 13.00mm 17.50 - [id number] - [id number] Implanted:Qty : 1 on 02/16/2024 by Andre Swartz MD at [facility] Left: Eye BAUSCH & LOMB 07/20/2028 [id number] / [id number] / [id number] documented as of this encounter Procedures Procedure Name Priority Date/Time Associated Diagnosis Comments DIFFERENTIAL, AUTOMATED Routine 07/30/2024 11:08 AM EDT Current chronic use of systemic steroids COMPREHENSIVE METABOLIC PANEL Routine 07/30/2024 11:08 AM EDT Current chronic use of systemic steroids CBC Routine 07/30/2024 11:08 AM EDT Current chronic use of systemic steroids CBC Routine 07/30/2024 11:08 AM EDT Current chronic use of systemic steroids DIFFERENTIAL, TECHNOLOGIST REVIEW Routine 07/30/2024 11:08 AM EDT Current chronic use of systemic steroids documented in this encounter Results * DIFFERENTIAL, TECHNOLOGIST REVIEW (07/30/2024 11:08 AM EDT) Pathologist [facility] nRBCs 07/30/2024 11:34 AM EDT [facility] 56-02 Blood Venous blood specimen / Unknown Venipuncture / Unknown 07/30/2024 11:08 AM EDT 07/30/2024 11:08 AM EDT us Babita Olvera DNP LAB BLOOD ORDERABLES Fi nal Result [facility] 56-[address] [place] [address] * (ABNORMAL) DIFFERENTIAL, AUTOMATED (07/30/2024 11:08 AM EDT) Pathologist [facility] WBC 12.20(H) 4.00 - 10.80 K/uL 07/30/2024 11:34 AM EDT [facility] 56-02 Neutrophils % 90.6(H) 40.0 - 75.0 % 07/30/2024 11:34 AM EDT [facility] 56-02 Lymphocytes % 5.3(L) 18.0 - 42.0 % 07/30/2024 11:34 AM EDT [facility] 56-02 Monocytes % 3.5 1.0 - 11.0 % 07/30/2024 11:34 AM EDT [facility] 56-02 Eosinophils % 0.4 0.0 - 6.0 % 07/30/2024 11:34 AM EDT [facility] 56-02 Basophils % 0.2 0.0 - 2.0 % 07/30/2024 11:34 AM EDT [facility] 56-02 Absolute Neutrophils 11.04(H) 1.80 - 7.70 K/uL 07/30/2024 11:34 AM EDT [facility] 56-02 Absolute Lymphocytes 0.65(L) 1.00 - 4.80 K/ul 07/30/2024 11:34 AM EDT [facility] 56-02 Absolute Monocytes 0.43 0.00 - 1.10 K/uL 07/30/2024 11:34 AM EDT [facility] 56-02 Absolute Eosinophils 0.05 0.00 - 0.70 K/uL 07/30/2024 11:34 AM EDT [facility] 56-02 Absolute Basophils 0.03 0.00 - 0.20 K/uL 07/30/2024 11:34 AM EDT [facility] 56-02 Blood Venous blood specimen / Unknown Venipuncture / Unknown 07/30/2024 11:08 AM EDT 07/30/2024 11:08 AM EDT us Babita Olvera DNP LAB BLOOD ORDERABLES Fi nal Result [facility] 56-[address] [place] [address] * (ABNORMAL) CBC (07/30/2024 11:08 AM EDT) WBC 12.20(H) 4.00 - 10.80 K/uL 07/30/2024 11:34 AM EDT [facility] 56 RBC 4.68 4.50 - 5.25 M/uL 07/30/2024 11:34 AM EDT [facility] 56 HGB 14.6 14.0 - 16.8 g/dL 07/30/2024 11:34 AM EDT [facility] 56 HCT 44.9 40.0 - 48.4 % 07/30/2024 11:34 AM EDT [facility] 56 MCV 95.9 82.0 - 99.5 fL 07/30/2024 11:34 AM EDT [facility] 56 MCH 31.2 27.0 - 34.0 pg 07/30/2024 11:34 AM EDT [facility] 56 MCHC 32.5 32.0 - 36.0 g/dL 07/30/2024 11:34 AM EDT [facility] 56 RDW 14.5 11.5 - 15.5 % 07/30/2024 11:34 AM EDT [facility] 56 PLT 239 140 - 400 K/uL 07/30/2024 11:34 AM EDT [facility] 56 MPV 9.9 6.6 - 11.1 fL 07/30/2024 11:34 AM EDT [facility] 56 Blood Venous blood specimen / Unknown Venipuncture / Unknown 07/30/2024 11:08 AM EDT 07/30/2024 11:08 AM EDT Babita Olvera DNP LAB BLOOD ORDERABLES Fi nal Result [facility] [address] [place] [address] * (ABNORMAL) COMPREHENSIVE METABOLIC PANEL (07/30/2024 11:08 AM EDT) BUN 16 6 - 20 mg/dL 07/30/2024 4:00 PM EDT [facility] 56 CREATININE 1.1 0.6 - 1.2 mg/dL 07/30/2024 4:00 PM EDT [facility] 56 EGFR 72 >=60 mL/min 07/30/2024 4:00 PM EDT [facility] 56 Comment:eGFR is calculated b ased on the CKD-EPI 2020 equation. SODIUM 145 135 - 146 mmol/L 07/30/2024 4:00 PM EDT [facility] 56 POTASSIUM 4.0 3.5 - 5.1 mmol/L 07/30/2024 4:00 PM EDT [facility] 56 CHLORIDE 106 98 - 107 mmol/L 07/30/2024 4:00 PM EDT [facility] 56 CO2 29 22 - 32 mmol/L 07/30/2024 4:00 PM EDT [facility] 56 ANION GAP 10 7 - 15 mmol/L 07/30/2024 4:00 PM EDT [facility] 56 GLUCOSE 99 70 - 120 mg/dL 07/30/2024 4:00 PM EDT [facility] 56 Albumin 4.7 3.8 - 5.0 g/dL 07/30/2024 4:00 PM EDT [address] AST 21 10 - 50 U/L 07/30/2024 4:00 PM EDT [facility] 56 Alkaline Phosphatase 34(L) 35 - 130 U/L 07/30/2024 4:00 PM EDT [facility] 56 Bilirubin, Total 0.5 <=1.2 mg/dL 07/30/2024 4:00 PM EDT [facility] 56 CALCIUM 10.0 8.4 - 10.2 mg/dL 07/30/2024 4:00 PM EDT [facility] 56 Protein 5.9(L) 6.0 - 8.3 g/dL 07/30/2024 4:00 PM EDT [facility] 56 ALT 25 10 - 50 U/L 07/30/2024 4:00 PM EDT [facility] 56 Blood Venous blood specimen / Unknown Venipuncture / Unknown 07/30/2024 11:08 AM EDT 07/30/2024 11:08 AM EDT us Babita Olvera DNP LAB BLOOD ORDERABLES Fi nal Result [address] [place] [address] documented in this encounter Visit Diagnoses Diagnosis Current chronic use of systemic steroids Pre-diabetes Other abnormal glucose documented in this encounter Advance Directives Documents on File Type Date Recorded 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 Yes, in chart and reviewed as current [...] of Attor ephraim? No Care Teams Repairer Kiln Car Relationship Specialty Start Date End Date Theresa Johnson MD 200 [facility] [address] PCP - General Family Medicine 12/19/23 documented as of this encounter
--- OUTSIDE RECORDS SUMMARY | 2024-08-05 04:06 | External Medical Summary ---
Author Name Unknown Address Unknown Organization K09:[facility] [place] [address] Laboratory Report Ordering Provider Test Date Status ELIZABETH RAY 07/30/2024 11:08:38 Final Observation Date Value Abnormality Reference (Units ) Status SYNC LEUKOCYTES IN BLOOD BY AUTOMATED COUNT 07/30/2024 11:08:38 12.20 Above high normal 4.00-10.80 (K/uL) Final Segs 07/30/2024 11:08:38 90.6 Above high normal 40.0-75.0 (%) Final Lymphs % 07/30/2024 11:08:38 5.3 Below low normal 18.0-42.0 (%) Final Monos 07/30/2024 11:08:38 3.5 1.0-11.0 (%) Final Eosinophils 07/30/2024 11:08:38 0.4 0.0-6.0 (%) Final Basos 07/30/2024 11:08:38 0.2 0.0-2.0 (%) Final Absolute Segs 07/30/2024 11:08:38 11.04 Above high normal 1.80-7.70 (K/uL) Final Lymphs, absolute 07/30/2024 11:08:38 0.65 Below low normal 1.00-4.80 (K/ul) Final Monos, Abs 07/30/2024 11:08:38 0.43 0.00-1.10 (K/uL) Final Eos, Abs 07/30/2024 11:08:38 0.05 0.00-0.70 (K/uL) Final Basos, Abs 07/30/2024 11:08:38 0.03 0.00-0.20 (K/uL) Final Performing Location [facility] [place] [address]
--- OUTSIDE RECORDS SUMMARY | 2024-08-05 04:06 | External Medical Summary | Summary of Care ---
Author Name Unknown Organization [facility] Address [address] [place] [address] Phone [phone] Care Team Providers Care Refiner Operator Name Role Phone Theresa Johnson MD Primary Care Provider Reason for Visit * Reason Comments Dosage Adjustment Via Phone (anticoag Cl inic) Encounter Details Date Type Department Care Team (Late st Contact Info) Description 08/03/2024 9:00 AM EDT Telemedicine Neurology Renny John, [place] [address] [place] [address] Neto, Pharmacist Neurology [address] [place] [address] Myasthenia gravis (HCC)* Allergies Active Allergy Reactions Criticality Noted Date Comments Benzalkonium Chloride 02/21/2015 Merthiolate "the orange kind" Caused a rash documented as of this encounter (statuses as of 08/03/2024) Medications ALEVE 220 MG PO CAPS Take 1 Capsule by mouth daily as needed. Active Fluticasone Propionate 50 MCG/ACT Nasal Suspension Administer 1 [place] into nostril as needed. Active FIBER ADULT [...] morning. 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 Patient Symptom Assessment [facility] Neurology Patient location: HOME. I was in a hospital or clinic location. After connecting through televideo,patient was verified with two unique identifiers. Patient (or authorized legal parts representative) was then informed that this was a Telemedicine visit and being conducted confidentially over secure lines. Methods to assure confidentiality were taken. Patient acknowledged consent and understanding of pr ivacy and security of the Telemedicine visit. The patient agreed to participate. Time spent consular officer: 10 minutes. Vyvgart Dosing - Cycle 1 -09/16/23, 09/23/23, 09/30/23 , 10/07/23 Cycle 2- 11/14/23, 11/21/23, 11/28/23, 12/05/23 Cycle 3- 01/12/24, 01/19/24, 01/26/24, 02/01/24 Cycle 4 - 03/12/24, 03/19/24, 03/26/24, 04/02/24 Cycle 5 - 05/03/24, 05/11/24, 05/21/24, 05/28/24 Cycle 6- 06/22/23, 07/06/24, 07/13/24, 07/20/24 Baseline MG-ADL completed on 09/02/23: 6 MG-ADL on 08/03/24: Talkin [place] Swallowin - see note below Breathin - more SOB than he expected (thinks this is possibly due to not going to gym) Impairment of ability to brush teeth of comb hair: 0 Impairment of ability to arise from chair: 1 Double vision: 2- double vision when focusing on something for awhile Eyelid droop: 3 (L eye) Total Score: 7 Patient states he has had a hectic week. He did a lot on Tuesday with volunteering but came home and relaxed and went to bed early and recovered well. Also notes that on Tuesday he only took two Mestinon doses (in the morning and at 3 PM, typically has been taking TID) and felt an impact on his swallowing on Tuesday. Denies choking but felt difficulty swallowing. He hasn't returned to the gymyet but has been active. Plan for next cycle planning once MG-ADL reaches 5 at least 50 days after Day 1 of last cycle: no sooner than 08/11/24 - placed SCP today for initiation of next cycle on 08/13/24 (due to 08/11 being a Tuesday) to prevent treatment delays. Patient is interested in the Vygart Hytrulo injections after the next 2-3 cycle infusions. Plan to revisit conversation in 4-6 months to provide information on injection process and start prior auth if patient is interested in the change. Patient was advised to contact the clinic in the meantime with any questions or concerns. Follow up: one week follow up completion of MG-ADL Anette Tanner RPh Clinical Pharmacist, Neurology Medication Therapy Disease Management 08/03/2024 8:27 AM documented in this encounter Plan of Treatment Upcoming Encounters Date Type Department Care Team (Late st Contact Info) Description 08/10/2024 9:00 AM EDT Telemedicine Neurology [address] [place] [phone] Neto, Pharmacist Neurology [address] [place] [facility] [place] [address] 08/23/2024 1:15 PM EDT Scheduled Telephone Neurology [address] [place] [phone] Neuromuscular, Phone Nurse Neuro [address] [place] [facility] [place] [address] 12/11/2024 11:15 AM EDT Office Visit Urology, [facility] 132 [facility] [place] [address] Ramesh Phan MD [address] [place] [address] 01/30/2025 3:00 PM EDT Office Visit Neurology Neto [address] [place] [phone] Maksim Wright MD [address] [facility] [place] [address] 02/07/2025 11:40 AM EDT Office Visit [facility] [address] [place] [address] Theresa Johnson MD [address] [place] [address] 05/30/2025 11:15 AM EST Office Visit Dermatology [facility] [address] [place] [address] Marshall Henson MD 200 [facility] [place] [address] Scheduled Procedures Name Priority Associated Diagnoses Date/Ti [...] this encounter Medical Devices Implanted Type Area Asp Net C Developer Device Identifier Shelf Expiration Date Model / Serial / Lot Port Powerflow 9.6fr - [id number] Implanted:Qty : 1 on 03/15/2023 at [facility] CR BARD : PERIPHERAL VASCULAR [id number] 10/21/2023 [id number] / / [id number] Power Port 8fr Sngl Lumen Plas - [id number] Implanted:Qty : 1 on 03/15/2023 at [facility] CR BARD : PERIPHERAL VASCULAR [id number] 03/22/2024 [id number] / / [id number] Lens Li61ao 13.00mm 18.00 - [id number] - [id number] Implanted:Qty : 1 on 02/02/2024 by Andre Swartz MD at [facility] Right: Eye BAUSCH & LOMB 08/20/2028 [id number] / [id number] / [id number] Lens Li61ao 13.00mm 17.50 - [id number] - [id number] Implanted:Qty : 1 on 02/16/2024 by Andre Swartz MD at [facility] Left: Eye BAUSCH & LOMB 07/20/2028 [id number] / [id number] / [id number] documented as of this encounter Visit Diagnoses Diagnosis Myasthenia gravis (HCC)- Primary Myasthenia gravis without exacerbation documented in this encounter Advance Directives Documents on File Type Date Recorded Patient Model Making Supervisor Expl anation Power of Enamel Drier 06/20/2018 POWER OF A TTORNEY POA: EDEL- [...] the patient have Health Care Power of Enamel Drier? Yes, in chart and reviewed as current [...] Power of Attor ephraim? No Care Teams Refiner Operator Relationship Specialty Start Date End Date Theresa Johnson MD 200 [facility] [place] [address] PCP - General Family Medicine 12/19/23 documented as of this encounter
--- OUTSIDE RECORDS SUMMARY | 2024-08-05 04:06 | External Medical Summary | Summary of Care ---
Author Name Unknown Organization [facility] Address [address] [place] [address] Phone [phone] Care Team Providers Care Referral Specialist Name Role Phone Theresa Johnson MD Primary Care Provider [phone] Reason for Visit * Reason Comments Dosage Adjustment Via Phone (anticoag Cl inic) Encounter Details Date Type Department Care Team (Late st Contact Info) Description 08/03/2024 9:00 AM EDT Telemedicine Neurology Renny John, [place] [address] [place] [address] Neto, Pharmacist Neurology [address] [place] [address] Myasthenia gravis (HCC)* Allergies Active Allergy Reactions Criticality Noted Date Comments Benzalkonium Chloride 02/21/2015 Merthiolate "the orange kind" Caused a rash documented as of this encounter (statuses as of 08/03/2024) Medications ALEVE 220 MG PO CAPS Take 1 Capsule by mouth daily as needed. Active Fluticasone Propionate 50 MCG/ACT Nasal Suspension Administer 1 [place] into nostril as needed. Active FIBER ADULT [...] morning. 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 Patient Symptom Assessment [facility] Neurology Patient location: HOME. I was in a hospital or clinic location. After connecting through televideo,patient was verified with two unique identifiers. Patient (or authorized legal career representative) was then informed that this was a Telemedicine visit and being conducted confidentially over secure lines. Methods to assure confidentiality were taken. Patient acknowledged consent and understanding of pr ivacy and security of the Telemedicine visit. The patient agreed to participate. Time spent leaf conditioner: 10 minutes. Vyvgart Dosing - Cycle 1 [...] [place] [phone] Neto, Pharmacist Neurology [address] [place] [facility] [place] [address] 08/23/2024 1:15 PM EDT Scheduled Telephone Neurology [address] [place] [phone] Neuromuscular, Phone Nurse Neuro [address] [facility] [place] [address] 12/11/2024 11:15 AM EDT Office Visit Urology, [facility] 132 [facility] [place] [address] Ramesh Phan MD [address] [place] [address] 01/30/2025 3:00 PM EDT Office Visit Neurology Neto [address] [place] [phone] Maksim Wright MD [address] [facility] [place] [address] 02/07/2025 11:40 AM EDT Office Visit [facility] [address] [place] [address] Theresa Johnson MD [address] [place] [address] 05/30/2025 11:15 AM EST Office Visit Dermatology State Tory Hoang [address] [place] [address] Marshall Henson MD 200 [facility] [place] [address] Scheduled Procedures Name Priority Associated Diagnoses Date/Ti [...] this encounter Medical Devices Implanted Type Area Algebra Tutor Device Identifier Shelf Expiration Date Model / Serial / Lot Port Powerflow 9.6fr - [id number] Implanted:Qty : 1 on 03/15/2023 at [facility] CR BARD : PERIPHERAL VASCULAR [id number] 10/21/2023 [id number] / / [id number] Power Port 8fr Sngl Lumen Plas - [id number] Implanted:Qty : 1 on 03/15/2023 at [facility] CR BARD : PERIPHERAL VASCULAR [id number] 03/22/2024 [id number] / / [id number] Lens Li61ao 13.00mm 18.00 - [id number] - [id number] Implanted:Qty : 1 on 02/02/2024 by Andre Swartz MD at [facility] Right: Eye BAUSCH & LOMB 08/20/2028 [id number] / [id number] / [id number] Lens Li61ao 13.00mm 17.50 - [id number] - [id number] Implanted:Qty : 1 on 02/16/2024 by Andre Swartz MD at [facility] Left: Eye BAUSCH & LOMB 07/20/2028 [id number] / [id number] / [id number] documented as of this encounter Visit Diagnoses Diagnosis Myasthenia gravis (HCC)- Primary Myasthenia gravis without exacerbation documented in this encounter Advance Directives Documents on File Type Date Recorded 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 Yes, in chart and reviewed as current [...] Power of Attor ephraim? No Care Teams Referral Specialist Relationship Specialty Start Date End Date Theresa Johnson MD 200 [facility] [place] [address] PCP - General Family Medicine 12/19/23 documented as of this encounter
--- OUTSIDE RECORDS SUMMARY | 2024-08-05 04:07 | External Medical Summary | Summary of Care ---
Author Name Unknown Organization [facility] Address [address] [place] [address] Phone [phone] Care Team Providers Care Nurse First Aid Name Role Phone Theresa Johnson MD Primary Care Provider [phone] Reason for Visit * Reason Comments Return Neuro Encounter Details Date Type Department Care Team (Late st Contact Info) Description 07/25/2024 11:00 AM EST Office Visit Neurology [address] [place] [address] Maksim Wright MD [address] [place] [address] Myasthenia gravis (HCC)*; Diplopia; Current chronic use of systemic steroids; Pre-diabetes Allergies Active Allergy Reactions Criticality Noted Date Comments Benzalkonium Chloride 02/21/2015 Merthiolate "the orange kind" Caused a rash documented as of this encounter (statuses as of 07/27/2024) Medications ALEVE 220 MG PO CAPS Take 1 Capsule by mouth daily as needed. Active Fluticasone Propionate 50 MCG/ACT Nasal Suspension Administer 1 Buxton into nostril as needed. Active FIBER ADULT [...] 03/19/20 24 Active Ketoconazole 2 % External CreamIndications :Seborrheic dermatitis Apply to dry skin on forehead, nose once daily 30 g 4 05/04/20 24 Active Additional Information Patient taking differently: PRN, [...] morning. 60 Tablet 4 06/11/19 25 Active pyRIDostigmine Neodesha 60 MG Oral Tablet (Mestinon) Take 1 Tablet by mouth in the morning and 1 Tablet at noon and 1 Tablet in the evening and 1 Tablet before bedtime. 120 Tablet 2 07/19/19 25 Active Scopolamine 1 MG/3DAYS Transdermal Patch 72 Hour (Transderm-Scop) Place 1 patch topically on the skin for 72 hours maximum. May replace every 3 days. 3 Patch 03/19/20 24 025 Discontin ued(Medic ation List Clean Up) pyRIDostigmine Neodesha 60 MG Oral Tablet (Mestinon) Take 1 Tablet by mouth every 6 hours. 120 Tablet 06/27/2024 3:17 PM EST 06/27/19 25 025 Discontin ued(Medic ation List Clean Up) predniSONE 10 MG Oral Tablet (Deltasone) Take 3 Tablets by mouth in the morning. 90 Tablet 06/27/2024 3:17 PM EST 06/27/19 25 025 Discontin ued(Medic ation List Clean Up) documented as of this encounter (statuses as [...] No 06/29/2024 Does the household have a [facility] source of income? 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 on file Not on file Not on file documented as of this encounter Last Filed Vital Signs Vital Sign Reading Time Taken Comments Blood Pressure 144/63 07/25/2024 11:04 AM EST Pulse 78 07/25/2024 11:04 AM EST Temperature 36.3 C (97.4 F) 07/25/2024 1 1:04 AM EST Respiratory Rate - - Oxygen Saturation 100% 07/25/2024 11: 04 AM EST Inhaled Oxygen Concentration - - Weight 85.1 kg (187 lb 11.2 oz) 025 11:04 AM EST Height 170.2 cm (5' 7") 07/25/2024 11:0 4 AM EST Body Mass Index 29.4 07/25/2024 11:04 AM EST documented in this encounter Functional Status * Are you deaf or do you have serious difficulty hearing? Answer Date of Assessment Author No 06/24/2024 9:28 AM EST Marguerite Toledo RN * Are you blind or do [...] documented in this encounter Progress Notes * Babita Olvera, LUCY - 07/25/2024 11:12 AM EST 07/25/2024 Referring Provider: Theresa Johnson MD Chief Complaint: Myasthenia gravis History of Present Illness (HPI): Pt is a 74 year male with history of myasthenia gravis diagnosed in 2021 based on +AchR Ab. Today is here with complaints of: Hospitalized last month due to MG flare. Feels he is 90% back to himself. Diplopia is still present. Using an eye patch most of the day. Slight ptosis on L which has never improved since onset. No bulbar sx. Breathing is ok. Notes stamina is not perfect but he is better than he was. No weakness in arms or legs. Able to go up stairs without issues. Was given IVIG at an outside hospital and then 5 days of PLEX when transferred to [facility]. Had Vyvgart treatment day of admission. Current medications Mestinon 60 mg TID Prednisone 30 mg/d Vyvgart started September 2023 Laboratory testing: Antibody - AchR Ab 9.40 CT of chest 06/06/23 IMPRESSION 1. No evidence of thymoma or other suspicious finding involving the chest. 2. Trace right pleural effusion. Treatments in past (dose, tolerance, duration) Mestinon max 60 mg 4-6 x a day Steroids max 60 mg/d Oral agents Imuran - side effects IV/IM agents IVIG (not effective), PLEX, Vyvgart Review of Systems (ROS): See HPI for pertinent positives and negatives. All other ROS reviewed and negative. Past Medical History and Problem List Patient Active Problem List Diagnosis Family history of malignant neoplasm of prostate Family history of other cardiovascular diseases Allergic rhinitis due to pollen BPH with obstruction/lower urinary tract symptoms Prostate cancer (HCC) History of basal cell cancer Ptosis of right eyelid Elevated prostate specific antigen (PSA) Myasthenia gravis with exacerbation, adult form (HCC) Facial weakness Diplopia Myasthenia gravis (HCC) Family History Non contributory @SOCHXR@ Current Outpatient Medications Medication Sig Dispense Refill ALEVE 220 MG PO CAPS Take 1 Capsule by mouth daily as needed. Fluticasone Propionate 50 MCG/ACT Nasal Suspension Administer 1 Buxton into nostril as needed. FIBER ADULT GUMMIES 2 g CHEW Take 2 Each by mouth daily. Calcium-Vitamin D-Minerals 600-400 MG-UNIT Oral Tablet Chewable Take 1 tablet in the morning daily 30 Tablet 5 Alendronate Sodium 70 MG Oral Tablet (Fosamax) Take 1 Tablet by mouth once a week. with 8 oz. water30 minutes before first meal of the day. Remain upright for 30 min after taking tablet 12 Tablet 3 Tamsulosin HCl 0.4 MG Oral Capsule (Flomax) Take 1 Capsule by mouth in the morning. 90 Capsule 3 Ketoconazole 2 % External Cream Apply to dry skin on forehead, nose once daily (Patient taking differently: as needed. Apply to dry skin on forehead, nose once daily) 30 g 4 Mirtazapine 15 MG Oral Tablet (Remeron) Take 1 Tablet by mouth at bedtime. 90 Tablet 1 Finasteride 5 MG Oral Tablet (Proscar) Take 1 Tablet by mouth in the morning. 90 Tablet 3 predniSONE 10 MG Oral Tablet (Deltasone) Take 2 Tablets by mouth in the morning. 60 Tablet 4 pyRIDostigmine Neodesha 60 MG Oral Tablet (Mestinon) Take 1 Tablet by mouth in the morning and 1 Tablet at noon and 1 Tablet in the evening and 1 Tablet before bedtime. 120 Tablet 2 No current facility-administered medications for this visit. Review of patient's allergies indicates: Allergen Reactions Merthiolate [Benzalkonium Chloride] Merthiolate "the orange kind" Caused a rash Physical Exam: Constitutional: BP 144/63 | Pulse 78 | Temp 36.3 C (97.4 F) (Tympanic) | Ht 1.702 m (5' 7") | Wt 85.1 kg (187 lb 11.2 oz) | SpO2 100% | BMI 29.40 kg/m | BSA 2.01 m Ears, Nose, Mouth and Throat: mucous membranes moist, no injection and skin normal, eyes normal Neurologic: PERRL, EOMI, motor cranial nerves normal, motor exam of UE and LE normal, DTR symmetric, toes downgoing, Cerebellar normal FTN, AMR, Sensation to LT normal, and Gait normal MG MMT 0 none 1 Mild weak/25% 2 Mod weak/50% 3 Severe weak/75% 4 Plegic Right Left Sum Ptosis 1 0 1 Diplopia 0 0 0 Eye closure - - 0 Cheek puff - - 0 Tongue protrusion - - 0 Jaw closure - - 0 Cranial muscle score: 1 Neck flexion - - 0 Neck ext - - 0 Shoulder abd 0 0 0 Elbow flex 0 0 0 Elbow ex 0 0 0 Wrist ext 0 0 0 Nuclear Equipment Design Engineer 0 0 0 Hip flex 0 0 0 Knee ext 0 0 0 Knee flex 0 0 0 Ankle dorsiflex 0 0 0 Ankle plantarflex 0 0 0 Limb muscle score 0 Total MMT score: 1 Able to stand without using his arms Mild fatigable weakness in UE MG-ADL on 07/25/2024 Talkin Chewin Swallowin Breathin Impairment of ability to brush teeth of comb hair: 0 Impairment of ability to arise from chair: 0 Double vision: 3 Eyelid droop: 2 Total Score: 5 Surveillance Labs: Component Latest Ref Rng 06/27/2024 WBC 4.00 - 10.80 K/uL 10.57 RBC 4.50 - 5.25 M/uL 4.78 HGB 14.0 - 16.8 g/dL 15.3 HCT 40.0 - 48.4 % 45.2 MCV 82.0 - 99.5 fL 94.6 MCH 27.0 - 34.0 pg 32.0 MCHC 32.0 - 36.0 g/dL 33.8 RDW 11.5 - 15.5 % 13.2 PLT 140 - 400 K/uL 211 MPV 6.6 - 11.1 fL 9.9 nRBCs <=0 /100 WBCs 0 BUN 6 - 20 mg/dL 25 (H) CREATININE 0.6 - 1.2 mg/dL 1.0 EGFR >=60 mL/min 81 SODIUM 135 - 146 mmol/L 142 POTASSIUM 3.5 - 5.1 mmol/L 3.6 CHLORIDE 98 - 107 mmol/L 111 (H) CO2 22 - 32 mmol/L 23 ANION GAP 7 - 15 mmol/L 8 GLUCOSE 70 - 120 mg/dL 85 CALCIUM 8.4 - 10.2 mg/dL 8.5 Component Latest Ref Rng 05/31/2023 Hemoglobin A1C 4.0 - 5.6 % 6.2 (H) Estimated Average Glucose <126 mg/dL 131 (H) Impression: Myasthenia gravis Plan: Continue Prednisone 20/30 x 2 weeks then lower to 20 mg/d Vyvgart Mestinon - will trial tapering off and using more PRN Surveillance Labs every 3 months Phone follow up with Mila in 4 weeks - if doing well can continue lowering Follow up in 4 months or sooner if needed I spent a total of 40-54 minutes (exact time 45 mins) on the date of service in preparation, delivery, and documentation of the care provided to Giorgio Sosa excluding any time spent in the performance of separately billed services or time spent by another provider/QHP. Babita Olvera, LUCY 07/25/2024 11:12 AM I have reviewed the advanced practitioner's documentation on the date of service referenced in note, and I agree with, and take responsibility for the plan of care. Pt recovered from flare up and appears that he may not be able to tolerate less than 10 mg of Prednisone and will slowly taper, continue Vyvgart and observe for now. He still has diplopia that has improved and would assume after over a month of 30 mg/d he can start to taper. Agree with plan above Maksim Wright MD documented in this encounter Plan of Treatment Upcoming Encounters Date Type Department Care Team (Late st Contact Info) Description 07/27/2024 9:00 AM EST Telemedicine Neurology [address] [place] [address] Nathan, Pharmacist Neurology [address] [facility] [place] [address] 08/23/2024 1:15 PM EDT Scheduled Telephone Neurology [address] [place] [address] Neuromuscular, Phone Nurse Neuro [address] [place] [address] 12/11/2024 11:15 AM EDT Office Visit Urology, [facility] [address] [facility] [place] [place] [address] Ramesh Phan MD [address] [place] [address] 01/30/2025 3:00 PM EDT Office Visit Neurology [address] [place] [address] Maksim Wright MD [address] [facility] [place] [address] 02/07/2025 11:40 AM EDT Office Visit Family Practice [facility] [address] [facility] [place] [address] Theresa Johnson MD [address] [place] [address] 05/30/2025 11:15 AM EST Office Visit Dermatology [facility] [address] [place] [address] Marshall Henson MD [address] [place] [address] Scheduled Orders Name Type Priority Associated Diagnoses Orde r Schedule CBC WITH WBC DIFFERENTIAL Lab Routine Current chronic use of systemic steroids Every 3 Months for 4 Occurrences starting 07/25/2024 until 07/25/2025 COMPREHENSIVE METABOLIC PANEL Lab Routine Current chronic use of systemic steroids Every 3 Weeks for 4 Occurrences starting 07/25/2024 until 07/25/2025 HEMOGLOBIN A1C Lab Routine Current chronic use of systemic steroids Pre-diabetes Every 3 Months for 4 Occurrences starting 07/25/2024 until 07/25/2025 Scheduled Procedures Name Priority Associated Diagnoses Date/Ti [...] this encounter Medical Devices Implanted Type Area Mill Laborer Device Identifier Shelf Expiration Date Model / Serial / Lot Port Powerflow 9.6fr - [id number] Implanted:Qty : 1 on 03/15/2023 at [employer] [facility] CR BARD : PERIPHERAL VASCULAR [id number] 10/21/2023 [id number] / / [id number] Power Port 8fr Sngl Lumen Plas - [id number] Implanted:Qty : 1 on 03/15/2023 at [facility] CR BARD : PERIPHERAL VASCULAR [id number] 03/22/2024 [id number] / / [id number] Lens Li61ao 13.00mm 18.00 - [id number] - [id number] Implanted:Qty : 1 on 02/02/2024 by Andre Swartz MD at [facility] Right: Eye [employer] LOMB 08/20/2028 [id number] / [id number] / [id number] Lens Li61ao 13.00mm 17.50 - [id number] - [id number] Implanted:Qty : 1 on 02/16/2024 by Andre Swartz MD at OR [facility] Left: Eye BAUSCH & LOMB 07/20/2028 [id number] / [id number] / [id number] documented as of this encounter Visit Diagnoses Diagnosis Myasthenia gravis (HCC)- Primary Myasthenia gravis without exacerbation Diplopia Current chronic use of systemic steroids Pre-diabetes Other abnormal glucose documented in this encounter Advance Directives Documents on File Type Date Recorded 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 Yes, in chart and reviewed as current [...] Power of Attor ephraim? No Care Teams Nurse First Aid Relationship Specialty Start Date End Date Theresa Johnson MD [address] [place] [address] PCP - General Family Medicine 12/19/23 documented as of this encounter
--- OUTSIDE RECORDS SUMMARY | 2024-08-05 04:07 | External Medical Summary | Summary of Care ---
Author Name Unknown Organization [facility] Address [address] [place] [address] Phone [phone] Care Team Providers Care Services Host Name Role Phone Theresa Johnson MD Primary Care Provider [phone] Reason for Visit * Reason Comments Infusion Vygart * Episode Based Medications (Routine) - Authorized Specialty Diagnoses / Procedures Referred By Contlai t Referred To Contact Diagnoses Myasthenia gravis with exacerbation, adult form (HCC) Procedures FL INJECTION, EFGARTIGIMOD EVANGELINA-FCAB, 2MG Maksim Wright MD [address] [place] [address] Phone: tel: fax: Hematology/Oncology Treatment, [address] [place] [address] Phone: tel: fax: Referral ID Status Reason Start Date Expiration Date V isits Requested Visits Authorized [id number] Authorized 11/04/2023 11/03/2024 99 99 Encounter Details Date Type Department Care Team (Latest Contact Info) Description 07/13/2024 9:30 AM EST Hem/Onc Treatment Hematology/Oncology Treatment, [address] [place] [address] Krista, Chair 5 Hem On[address] [place] [address] Myasthenia gravis with exacerbation, adult form (HCC)* Allergies Active Allergy Reactions Criticality Noted Date Comments Benzalkonium Chloride 02/21/2015 Merthiolate "the orange kind" Caused a rash documented as of this encounter (statuses as of 07/13/2024) Medications ALEVE 220 MG PO CAPS Take 1 Capsule by mouth daily as needed. Active Fluticasone Propionate 50 MCG/ACT Nasal Suspension Administer 1 Lorman into nostril in the morning. Active FIBER ADULT GUMMIES 2 g CHEW Take 2 Each by mouth daily. Active Calcium-Vitamin D-Minerals 600-400 MG-UNIT Oral Tablet ChewableIndicatio [...] Patch 4 Active Ketoconazole 2 % External CreamIndications: Seborrheic dermatitis Apply to dry skin on forehead, nose once daily 30 g 4 4 Active Mirtazapine 15 MG Oral Tablet (Remeron)Indicati ons:Adjustment insomnia Take 1 Tablet by mouth at bedtime. 90 Tablet 1 4 Active Finasteride 5 MG Oral Tablet (Proscar) Take 1 Tablet by mouth in the morning. 90 Tablet 3 5 Active predniSONE 10 MG Oral Tablet (Deltasone) Take 2 Tablets by mouth in the morning. 60 Tablet 4 5 Active pyRIDostigmine Morse 60 MG Oral Tablet (Mestinon) Take 1 Tablet by mouth in the morning and 1 Tablet at noon and 1 Tablet before bedtime. 90 Tablet 4 Active pyRIDostigmine Morse 60 MG Oral Tablet (Mestinon) Take 1 Tablet by mouth every 6 hours. 120 Tablet 06/27/2024 3:17 PM EST 5 07/28/19 Active predniSONE 10 MG Oral Tablet (Deltasone) Take 3 Tablets by mouth in the morning. 90 Tablet 06/27/2024 3:17 PM EST 5 07/28/19 Active documented as of this encounter (statuses as of 07/13/2024) Active Problems Problem Noted Date Diagnosed Date [...] as of this encounter (statuses as of 07/13/2024) Resolved Problems Problem Noted Date Diagnosed Date [...] as of this encounter (statuses as of 07/13/2024) Immunizations Name Administration Dates Next Due COVID-19 [...] 06/29/2024 Does the household have a re lar source of income? 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 PIV removed intact. Pt to return next week. Discharged in stable condition. * Azucena Sarmiento LPN - 07/13/2024 9:35 AM EST 0920: Pt arrived for Vygart infusion. PIV in [...] potential rodriguez while using the heat function. documented in this encounter Plan of Treatment Upcoming Encounters Date Type Department Care Team (Late st Contact Info) Description 07/20/2024 9:30 AM EST Hem/Onc Treatment Hematology/Oncology Treatment, [place] [address] [place] [address] Park, Chair 9 Hem Onc [facility] [address] [place], [place] [address] 07/25/2024 11:00 AM EST Office Visit Neurology [address] [place] [address] Maksim Wright MD [address] [place], [place] [id number] 07/27/2024 9:00 AM EST Telemedicine Neurology [address] [place] [address] Nathan, Pharmacist Neurology [address] [place], [place] [id number] 12/11/2024 11:15 AM EDT Office Visit Urology, [facility] [address] [facility] [place] [address] Ramesh Phan MD [address] [place] [address] 02/07/2025 11:40 AM EDT Office Visit Family Practice [facility] [address] [place] [address] Theresa Johnson MD [address] [place] [address] 05/30/2025 11:15 AM EST Office Visit Dermatology [facility] [address] [place] [address] Marshall Henson MD [address] [place] [address] Scheduled Procedures Name Priority Associated Diagnoses Date/Ti [...] this encounter Medical Devices Implanted Type Area Sorter Operator Device Identifier Shelf Expiration Date Model / Serial / Lot Port Powerflow 9.6fr - [id number] Implanted:Qty : 1 [facility] : PERIPHERAL VASCULAR [id number] 10/21/2023 [id number] / / [id number] Power Port 8fr Sngl Lumen Plas - [id number] Implanted:Qty : 1 on 03/15/2023 at [facility] CR BARD : PERIPHERAL VASCULAR [id number] 03/22/2024 [id number] / / [id number] Lens Li61ao 13.00mm 18.00 - [id number] - [id number] Implanted:Qty : 1 on 02/02/2024 by Andre Swartz MD at [facility] Right: Eye BAUSCH [employer] LOMB 08/20/2028 [id number] / [id number] / [id number] Lens Li61ao 13.00mm 17.50 - [id number] - [id number] Implanted:Qty : 1 on 02/16/2024 by Andre Swartz MD at [facility] Left: Eye BAUSCH & LOMB 07/20/2028 [id number] / [id number] / [id number] documented as of this encounter Visit Diagnoses Diagnosis Myasthenia gravis with exacerbation, adult form (HCC)- Primary Myasthenia gravis with exacerbation documented in this encounter Administered Medications Inactive Administered Medications - up to 3 most recent administrations Medication Order MAR Action Action Date Dose Rate Site Efgartigimod evangelina-fcab (Vyvgart) 800 mg in NSS 125 mL infusion 800 mg, IV Piggyback, ONCE, 1 dose, On Tue07/13/24 at 1030, In NSS Note: VOLUME TO BE INFUSED 125 ML Infuse over 1 hour via a 0.2 micron in-line filter; do not administer as IV push or bolus. Following administration, flush entire line with NS.Indications:Myasthenia gravis with exacerbation, adult form (HCC) Start Infusion 07/13/2024 10:04 AM EST 800 mg 125 mL/hr NSS infusion Intravenous, at 50 mL/hr, PRN, Starting on Tue07/13/24 at 1030, Until Tue07/13/24 at 1809, Maintenance lineIndications:Myasthenia gravis with exacerbation, adult form (HCC) Start Infusion 07/13/2024 9:29 AM EST 50 mL/hr documented in this encounter Advance Directives Documents on File Type Date Recorded Patient Fulfillment Specialist Expl anation Power of Salesperson [employer] 06/20/2018 POWER OF A TTORNEY POA: EDEL- [...] the patient have Health Care Power of Salesperson [employer]? Yes, in chart and reviewed as current [...] Power of Attor ephraim? No Care Teams Services Host Relationship Specialty Start Date End Date Theresa Johnson MD [address] [place] [address] PCP - General Family Medicine 12/19/23 documented as of this encounter
--- OUTSIDE RECORDS SUMMARY | 2024-08-05 04:07 | External Medical Summary | Summary of Care ---
Author Name Unknown Organization [facility] Address [address] [place] [address] Phone [phone] Care Team Providers Care Brush Hand Name Role Phone Theresa Johnson MD Primary Care Provider [phone] Reason for Visit * Reason Onset Date Comments Information 07/19/2024 Encounter Details Date Type Department Care Team (Late st Contact Info) Description 07/19/2024 Telephone Hematology/Oncology Treatment, [place] [address] [place] [address] Maksim Wright MD [address] [place] [address] Information Allergies Active Allergy Reactions Criticality Noted Date Comments Benzalkonium Chloride 02/21/2015 Merthiolate "the orange kind" Caused a rash documented as of this encounter (statuses as of 07/19/2024) Medications ALEVE 220 MG PO CAPS Take 1 Capsule by mouth daily as needed. Active Fluticasone Propionate 50 MCG/ACT Nasal Suspension Administer 1 [place] into nostril in the morning. Active FIBER [...] replace every 3 days. 3 Patch 03/19/20 Active Ketoconazole 2 % External CreamIndications :Seborrheic [...] 60 Tablet 4 06/11/19 25 Active pyRIDostigmine [place] 60 MG Oral Tablet (Mestinon) Take 1 Tablet by mouth every 6 hours. 120 Tablet 5 3:17 PM EST 06/27/19 25 025 Active predniSONE 10 MG Oral Tablet (Deltasone) Take 3 Tablets by mouth in the morning. 90 Tablet 5 3:17 PM EST 06/27/19 25 025 Active pyRIDostigmine [place] 60 MG Oral Tablet (Mestinon) Take 1 Tablet by mouth in the morning and 1 Tablet at noon and 1 Tablet before bedtime. 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 Scheduling: please call patient to move his appt time back tomorrow- should be in afternoon. If no room, please call a afternoon patient to move their appt time to earlier (switch appt times). Thanks! documented in this encounter Plan of Treatment Upcoming Encounters Date Type Department Care Team (Late st Contact Info) Description 07/20/2024 1:00 PM EST Hem/Onc Treatment Hematology/Oncology Treatment, [place] [address] [place] [address] Park, Chair [address] [address] 07/25/2024 11:00 AM EST Office Visit Neurology [address] [place] [address] Maksim Wright MD [address] [place] [address] 07/27/2024 9:00 AM EST Telemedicine Neurology [address] [place] [address] [place], Pharmacist Neurology [address] [place] [address] 12/11/2024 11:15 AM EDT Office Visit Urology, [facility] [address] [place] [address] Ramesh Phan MD [address] [place] [address] 02/07/2025 11:40 AM EDT Office Visit Family Practice [facility] [address] [facility] [place] [address] Theresa Johnson MD [address] [facility] [place] [address] 05/30/2025 11:15 AM EST Office Visit Dermatology [facility] [address] [facility] [place] [address] Marshall Henson MD [address] [facility] [place] [address] Scheduled Procedures Name Priority Associated Diagnoses Date/Ti [...] encounter Medical Devices Implanted Type Area Medical Interpreter Device Identifier Shelf Expiration Date Model / Serial / Lot Port Powerflow 9.6fr - [id number] Implanted:Qty : 1 on 03/15/2023 at [facility] : PERIPHERAL VASCULAR [id number] 10/21/2023 [id number] / / [id number] Power Port 8fr Sngl Lumen Plas - [id number] Implanted:Qty : 1 on 03/15/2023 at [facility] [employer] [place] : PERIPHERAL VASCULAR [id number] 03/22/2024 [id number] / / [id number] Lens Li61ao 13.00mm 18.00 - [id number] - [id number] Implanted:Qty : 1 on 02/02/2024 by Andre Swartz MD at [facility] Right: Eye [employer] 08/20/2028 [id number] / [id number] / [id number] Lens Li61ao 13.00mm 17.50 - [id number] - [id number] Implanted:Qty : 1 on 02/16/2024 by Andre Swartz MD at [facility] Left: Eye BAUSCH [employer] LOMB 07/20/2028 [id number] / [id number] / [id number] documented as of this encounter Advance Directives Documents on File Type Date Recorded Patient Data Center Architect Expl anation Power of Car Storer 06/20/2018 POWER OF A TTORNEY POA: EDEL- [...] the patient have Health Care Power of Car Storer? Yes, in chart and reviewed as current [...] Power of Attor ephraim? No Care Teams Brush Hand Relationship Specialty Start Date End Date Theresa Johnson MD [address] [place] [address] PCP - General Family Medicine 12/19/23 documented as of this encounter
--- OUTSIDE RECORDS SUMMARY | 2024-08-05 04:07 | External Medical Summary | Summary of Care ---
Author Name Unknown Organization [facility] Address [address] [place] [address] Phone [phone] Care Team Providers Care Netbackup Admin Name Role Phone Theresa Johnson MD Primary Care Provider [phone] Reason for Visit * Reason Comments eRx-Medication Refill Encounter Details Date Type Department Care Team (Late st Contact Info) Description 07/18/20[address] [place] [address] Serenity Baker MD [address] [place] [address] Allergies Active Allergy Reactions Criticality Noted Date Comments Benzalkonium Chloride 02/21/2015 Merthiolate "the orange kind" Caused a rash documented as of this encounter (statuses as of 07/19/2024) Medications ALEVE 220 MG PO CAPS Take 1 Capsule by mouth daily as needed. Active Fluticasone Propionate 50 MCG/ACT Nasal Suspension Administer 1 [place] into nostril in the morning. Active FIBER [...] nose once daily 30 g 4 05/04/20 Active Mirtazapine 15 MG Oral Tablet (Remeron)Indicat ions:Adjustment insomnia Take 1 Tablet by mouth at bedtime. 90 Tablet 1 05/14/20 24 Active Finasteride 5 MG Oral Tablet (Proscar) Take 1 Tablet by mouth in the morning. 90 Tablet 3 06/04/19 25 Active predniSONE 10 MG Oral Tablet (Deltasone) Take 2 Tablets by mouth in the morning. 60 Tablet 4 06/11/19 25 Active pyRIDostigmine [place] 60 MG Oral Tablet (Mestinon) Take 1 Tablet by mouth every 6 hours. 120 Tablet 5 3:17 PM EST 06/27/19 25 025 Active predniSONE 10 MG Oral Tablet (Deltasone) Take 3 Tablets by mouth in the morning. 90 Tablet 5 3:17 PM EST 06/27/19 25 025 Active pyRIDostigmine [place] 60 MG Oral Tablet (Mestinon) Take 1 Tablet by mouth in the morning and 1 Tablet at noon and 1 Tablet in the evening and 1 Tablet before bedtime. 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 Authorizing Provider: SERENITY BAKER * Telephone Encounter - Anette Tanner RPh - 07/18/2024 1:57 PM ESTPending Prescriptions: Disp Refills pyRIDostigmine [place] 60 MG Oral Tablet (*120 Ta*2 Sig: Take 1 Tablet by mouth in the morning and 1 Tablet at noon and 1 Tablet in the evening and 1 Tablet before bedtime. * Telephone Encounter - Anette Tanner RPh - 07/18/2024 1:56 PM EST Patient recently reported taking Mestinon QID. Updated sig and sent to provider for review/approval. * Telephone Encounter - Daniel Bernal - 07/18/2024 1:10 PM ESTPending Prescriptions: Disp Refills pyRIDostigmine [place] 60 MG Oral Tablet [*90 Tab*4 Sig: TAKE 1 TABLET BY MOUTH IN THE MORNING AT NOON AND BEFORE BEDTIME * Telephone Encounter - Daniel Bernal - 07/18/2024 1:08 PM EST Did you pend patient's preferred pharmacy and medication before forwarding?yes Pharmacy: [id number] [address] [place] [address] Pending Prescriptions: Disp Refills pyRIDostigmine [place] 60 MG Oral Tablet *90 Tab*4 Sig: TAKE 1 TABLET BY MOUTH IN THE MORNING AT NOON AND BEFORE BEDTIME Last Visit: 12/21/2023 (in office), 06/15/2024 (telemedicine) Next Visit: 07/25/2024 If no future appointments scheduled, and last appointment is greater than a year ago, please schedule patient for a follow-up appointment Last date the medication was ordered: 06/11/2024 Is this request for a controlled substance?No Urine Drug Screen:No results found for this or any previous visit. Patient Phone Numbers Labs: Lab Results Component Value Date/Time CREAT 1.0 06/27/2024 05:26 AM CREAT 1.1 05/30/2017 11:10 AM POTASSIUM 3.6 06/27/2024 05:26 AM POTASSIUM 4.0 02/09/2017 07:04 AM TSH 1.20 05/20/2022 11:19 AM TSH 1.19 09/03/2016 11:14 AM LDL 109 03/03/2021 07:05 AM LDL 102 03/21/2018 07:14 AM LDL NOT APPLICABLE 03/21/2018 07:14 AM ALT 32 06/24/2024 10:06 AM ALT 44 02/09/2017 07:04 AM HGBA1C 6.2 (H) 05/31/2023 09:12 AM HGBA1C 5.5 12/05/2013 07:09 AM documented in this encounter Plan of Treatment Upcoming Encounters Date Type Department Care Team (Late st Contact Info) Description 07/20/2024 1:00 PM EST Hem/Onc Treatment Hematology/Oncology Treatment, [place] [address] [place] [address] Krista, Chair 6 Hem Onc [facility] [address] [facility] [place], [place] [id number] 07/25/2024 11:00 AM EST Office Visit Neurology [address] [place] [address] Serenity Baker MD [address] [place] [address] 07/27/2024 9:00 AM EST Telemedicine Neurology [address] [place] [address] Nathan, Pharmacist Neurology [address] [place], [place] [address] 12/11/2024 11:15 AM EDT Office Visit Urology, [facility] [address] [place] [address] Ramesh Phan MD [address] [place] [address] 02/07/2025 11:40 AM EDT Office Visit Family Practice [facility] [address] [place] [address] Theresa Johnson MD [address] [place] [address] 05/30/2025 11:15 AM EST Office Visit Dermatology [facility] [address] [place] [address] Marshall Henson MD [address] [place] [address] [place] [address] Scheduled Procedures Name Priority Associated Diagnoses Date/Ti [...] this encounter Medical Devices Implanted Type Area Leather Seasoner Device Identifier Shelf Expiration Date Model / Serial / Lot Port Powerflow 9.6fr - [id number] Implanted:Qty : 1 on 03/15/2023 at [employer] [facility] CR BARD : PERIPHERAL VASCULAR [id number] 10/21/2023 [id number] / / [id number] Power Port 8fr Sngl Lumen Plas - [id number] Implanted:Qty : 1 on 03/15/2023 at [facility] CR BARD : PERIPHERAL VASCULAR [id number] 03/22/2024 [id number] / / [id number] Lens Li61ao 13.00mm 18.00 - [id number] - [id number] Implanted:Qty : 1 on 02/02/2024 by Andre Swartz MD at [facility] Right: Eye [employer]CH [employer] LOMB 08/20/2028 [id number] / [id number] / [id number] Lens Li61ao 13.00mm 17.50 - [id number] - [id number] Implanted:Qty : 1 on 02/16/2024 by Andre Swartz MD at [facility] Left: Eye BAUSCH [employer] LOMB 07/20/2028 [id number] / [id number] / [id number] documented as of this encounter Advance Directives Documents on File Type Date Recorded Patient Wetland Scientist Expl anation Power of Bull Driver 06/20/2018 POWER OF A TTORNEY POA: EDEL- [...] the patient have Health Care Power of Bull Driver? Yes, in chart and reviewed as current [...] Power of Attor ephraim? No Care Teams Netbackup Admin Relationship Specialty Start Date End Date Theresa Johnson MD [address] [facility] [place] [address] PCP - General Family Medicine 12/19/23 documented as of this encounter
--- OUTSIDE RECORDS SUMMARY | 2024-08-05 04:07 | External Medical Summary | Summary of Care ---
Author Name Unknown Organization [facility] Address [address] [place] [address] Phone [phone] Care Team Providers Care Land Management Supervisor Name Role Phone Theresa Johnson MD Primary Care Provider [phone] Reason for Visit * Reason Onset Date Comments Information 07/19/2024 Encounter Details Date Type Department Care Team (Late st Contact Info) Description 07/19/2024 Telephone Hematology/Oncology Treatment, [place] [address] [place] [address] Maksim Wright MD [address] [place] [address] Information Allergies Active Allergy Reactions Criticality Noted Date Comments Benzalkonium Chloride 02/21/2015 Merthiolate "the orange kind" Caused a rash documented as of this encounter (statuses as of 07/19/2024) Medications ALEVE 220 MG PO CAPS Take 1 Capsule by mouth daily as needed. Active Fluticasone Propionate 50 MCG/ACT Nasal Suspension Administer 1 [place] into nostril in the morning. Active FIBER [...] 60 Tablet 4 06/11/19 25 Active pyRIDostigmine [place] 60 MG Oral Tablet (Mestinon) Take 1 Tablet by mouth every 6 hours. 120 Tablet 5 3:17 PM EST 06/27/19 25 025 Active predniSONE 10 MG Oral Tablet (Deltasone) Take 3 Tablets by mouth in the morning. 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 on file [...] 1:00 PM EST Hem/Onc Treatment Hematology/Oncology Treatment, [place] [address] [place] [address] Park, Chair [address] [address] 07/25/2024 11:00 AM EST Office Visit Neurology [address] [place] [address] Maksim [place] MD [address] [place] [address] 07/27/2024 9:00 AM EST Telemedicine Neurology [address] [place] [address] [place], Pharmacist Neurology [address] [place] [address] 12/11/2024 11:15 AM EDT Office Visit Urology, [facility] [address] [place] [address] Ramesh Phan MD [address] [place] [address] 02/07/2025 11:40 AM EDT Office Visit Family Practice [facility] [address] [facility] [place] [address] Theresa Johnson MD [address] [facility] [place] [address] 05/30/2025 11:15 AM EST Office Visit Dermatology [facility] [address] [facility] [place] [address] Marshall Henson MD [address] [facility] [place] [address] Scheduled Procedures Name Priority Associated Diagnoses Date/Ti [...] this encounter Medical Devices Implanted Type Area Assembler Faucets Device Identifier Shelf Expiration Date Model / Serial / Lot Port Powerflow 9.6fr - [id number] Implanted:Qty : 1 on 03/15/2023 at [facility] CR BARD : PERIPHERAL VASCULAR [id number] 10/21/2023 [id number] / / [id number] Power Port 8fr Sngl Lumen Plas - [id number] Implanted:Qty : 1 on 03/15/2023 at [facility] CR BARD : PERIPHERAL VASCULAR [id number] 03/22/2024 [id number] / / [id number] Lens Li61ao 13.00mm 18.00 - [id number] - [id number] Implanted:Qty : 1 on 02/02/2024 by Andre Swartz MD at [facility] Right: Eye [employer]CH [employer] LOMB 08/20/2028 [id number] / [id number] / [id number] Lens Li61ao 13.00mm 17.50 - [id number] - [id number] Implanted:Qty : 1 on 02/16/2024 by Andre Swartz MD at [facility] Left: Eye BAUSCH [employer] LOMB 07/20/2028 [id number] / [id number] / [id number] documented as of this encounter Advance Directives Documents on File Type Date Recorded Patient Leaf Fat Scraper Expl anation Power of Morning Babysitter 06/20/2018 POWER OF A TTORNEY POA: EDEL- [...] the patient have Health Care Power of Morning Babysitter? Yes, in chart and reviewed as current [...] Power of Attor ephraim? No Care Teams Land Management Supervisor Relationship Specialty Start Date End Date Theresa Johnson MD [address] [place] [address] PCP - General Family Medicine 12/19/23 documented as of this encounter
--- OUTSIDE RECORDS SUMMARY | 2024-08-05 04:07 | External Medical Summary | Summary of Care ---
Author Name Unknown Organization [facility] Address [address] [place] [address] Phone [phone] Care Team Providers Care Records Clerk Name Role Phone Theresa Johnson MD Primary Care Provider [phone] Reason for Visit * Reason Comments Treatment Encounter Details Date Type Department Care Team (Late st Contact Info) Description 07/04/2024 8:30 AM EST [facility] [address] [place] [address] Provider, Apheresis [facility] [address] [place], [place] [id number] Myasthenia gravis with exacerbation, adult form (HCC)* Allergies Active Allergy Reactions Criticality Noted Date Comments Lactose Diarrhea 06/25/2024 Only milk bothers patient. He eats ice cream, yogurt and cheese. Benzalkonium Chloride 02/21/2015 Merthiolate "the orange kind" Caused a rash documented as of this encounter (statuses as of 07/06/2024) Medications ALEVE 220 MG PO CAPS Take 1 Capsule by mouth daily as needed. Active Fluticasone Propionate 50 MCG/ACT Nasal Suspension Administer 1 [place] into nostril in the morning. Active FIBER [...] morning. 60 Tablet 4 5 Active pyRIDostigmine [place] 60 MG Oral Tablet (Mestinon) Take 1 Tablet by mouth in the morning and 1 Tablet at noon and 1 Tablet before bedtime. 90 Tablet 4 5 Active pyRIDostigmine [place] 60 MG Oral Tablet (Mestinon) Take 1 Tablet by mouth every 6 hours. 120 Tablet 06/27/2024 3:17 PM EST 5 07/28/19 25 Active predniSONE 10 MG Oral Tablet (Deltasone) Take 3 Tablets by mouth in the morning. 90 Tablet 06/27/2024 3:17 PM EST 5 07/28/19 25 Active Mirtazapine 15 MG Oral Tablet (Remeron) Take 1 Tablet by mouth at bedtime for 10 days. 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 Family history of other cardiovascular diseases 08/06/2004 Overview (08/14/2015): ICD-10 update of inactive term Family history of malignant neoplasm of prostate 01/19/2001 Allergic rhinitis due to pollen documented as of this encounter (statuses as of 07/06/2024) Resolved Problems Problem Noted Date Diagnosed Date Resolved Date Prediabetes 06/26/2024 07/04/2024 Myasthenia gravis with exacerbation 12/14/2022 12/19/2023 Headache 10/13/2010 06/27/2024 Overview (08/13/2015): ICD-10 update of inactive term ADVANCE DIRECTIVE INFORMATION 12/30/2004 03/26/2024 Overview (12/30/2004): Yes, Patient instructed to provide copy of advance directive for provider to review and to be scanned into Electronic Medical Record Nonallopathic lesion of abdo men and other sites, not elsewhere classified 11/22/2003 06/30/19 12 documented as of this encounter (statuses as of 07/06/2024) Immunizations Name Administration Dates Next Due COVID-19 [...] 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 on file Not on file Not on file documented as of this encounter Last Filed Vital Signs Vital Sign Reading Time Taken Comments Blood Pressure 117/52 07/04/2024 10:08 AM EST Pulse 71 07/04/2024 10:08 AM EST Temperature 35.8 C (96.4 F) 07/04/2024 8:00 AM ES T Respiratory Rate - - Oxygen Saturation - - Inhaled Oxygen Concentration - - Weight - [...] documented in this encounter Progress Notes * Thee Ferrari MD - 07/06/2024 11:51 AM EST OP Therapeutic Plasma Exchange Procedure Note The patient presents today for therapeutic plasma exchange for (G70.01) Myasthenia gravis with exacerbation, adult form (HCC) (primary encounter diagnosis). Current treatment schedule: #5 Filed Vitals: Filed Vitals: 07/04/24 0800 07/04/24 1008 BP: 152/67 117/52 Pulse: 78 71 Temp: 35.8 C (96.4 F) Limited Physical Exam: General: NAD Relevant current (07/06/2024) laboratory results: WBC Date Value Ref Range Status 06/27/2024 10.57 4.00 - 10.80 K/uL Final HGB Date Value Ref Range Status 06/27/2024 15.3 14.0 - 16.8 g/dL Final HCT Date Value Ref Range Status 06/27/2024 45.2 40.0 - 48.4 % Final PLT Date Value Ref Range Status 06/27/2024 211 140 - 400 K/uL Final Number of plasma volumes exchanged: 1.0 Access: Dialysis Catheter: Course of apheresis complete Line has been removed by IR. There were no complications during the procedure. I evaluated the patient for this procedure and was available throughout the duration of the procedure. documented in this encounter Nursing Notes * Luzma Boyd RN - 07/04/2024 8:54 AM EST [facility] Care Plan ID is not set. Safety and Risk for Injury Patient will remain free from injury. Assess patient's risk for falls per policy. Ensure appropriate safety devices are available. Provide and maintain safe environment. Use appropriate transfer methods. Goals: maintain patient safety Possible barriers to meeting goals: Plasmapheresis Stability of the patient: Moderately stable - low risk of patient condition declining or worsening Summary regarding today's goals: Met: patient safety maintained. Temperature of 70F - 75F in room apheresis clinic within normal limits. Humidity of 20% - 60% recorded at 0700, within normal limits, discussed with APHERESIS PROVIDER. The provider has made a clinical evaluation to proceed with the procedure. All sterile instruments and supplies being used forthe procedures have been visually inspected for any signs of being compromised, including but not limited to, water stains on wrap and instruments, condensation on wrap or instruments, and torn or damaged packaging. documented in this encounter Plan of Treatment Upcoming Encounters Date Type Department Care Team (Late st Contact Info) Description 07/10/2024 10:00 AM EST Office Visit [facility] [address] [place] [address] Theresa Johnson MD [address] [facility] [place], [place] [address] 07/13/2024 9:30 AM EST Hem/Onc Treatment Hematology/Oncology Treatment, [address], [place] [phone] Krista, Chair [address] On[address] [place] [address] 07/20/2024 9:30 AM EST Hem/Onc Treatment [address]ematology[address] [phone] Krista, Chair 9 Hem Onc [address] [place] [address] 07/25/2024 11:00 AM EST Office Visit Neurology [address] [place] [address] Maksim Wright MD [address] [place] [address] 07/27/2024 9:00 AM EST Telemedicine Neurology [address] [place] [address] Nathan, Pharmacist Neurology [address] [place] [address] 09/13/2024 11:20 AM EDT Office Visit Family Practice [facility] [address] [place] [address] Theresa Johnson MD [address] [place] [address] 12/11/2024 11:15 AM EDT Office Visit Urology, [facility] [address] [place] [address] Ramesh Phan MD [address] [place] [address] 05/30/2025 11:15 AM EST Office Visit Dermatology [facility] [address] [place] [address] Marshall Henson MD [address] [place] [address] Scheduled Procedures Name Priority Associated Diagnoses Date/Ti [...] Additional history exists Zoster Vaccines Completed 03/21/2019, 080 10/2018, 02/05/2015 Pneumococcal Vaccine: 50+ Years Completed [...] this encounter Medical Devices Implanted Type Area Sweeper Cleaner Industrial Device Identifier Shelf Expiration Date Model / Serial / Lot Port Powerflow 9.6fr - [id number] Implanted:Qty : 1 on 03/15/2023 at [facility] CR BARD : PERIPHERAL VASCULAR [id number] 10/21/2023 [id number] / / [id number] Power Port 8fr Sngl Lumen Plas - [id number] Implanted:Qty : 1 on 03/15/2023 at [facility] CR BARD : PERIPHERAL VASCULAR [id number] 03/22/2024 [id number] / / [id number] Lens Li61ao 13.00mm 18.00 - [id number] - [id number] Implanted:Qty : 1 on 02/02/2024 by Andre Swartz MD at [facility] Right: Eye [employer] LOMB 08/20/2028 [id number] / [id number] / [id number] Lens Li61ao 13.00mm 17.50 - [id number] - [id number] Implanted:Qty : 1 on 02/16/2024 by Andre Swartz [facility] at [facility] Left: Eye BAUSCH & LOMB 07/20/2028 [id number] / [id number] / [id number] documented as of this encounter Visit Diagnoses Diagnosis Myasthenia gravis with exacerbation, adult form (HCC)- Primary Myasthenia gravis with exacerbation documented in this encounter Administered Medications Active Administered Medications - up to 3 most recent administrations Medication Order MAR Action Action Date Dose Rate Site anticoagulant acid citrate dextrose (Acd-A) apheresis solution Extracorporeal, CONTINUOUS, Starting on Tue07/04/24 at 0930, Until Discontinued, For Apheresis ONLY For anticoagulation of extracorporeal circuit per protocol. At end of infusion document total amount infused.Indications:Myasthenia gravis with exacerbation, adult form (HCC) New Bag 07/04/2024 8:48 AM EST 108 mL NSS NG or OSTOMY REPLACEMENT Intravenous, For Apheresis ONLY use volume needed for pre and post flush and priming, CONTINUOUS, Starting on Tue07/04/24 at 0930, Until 07/07/24 at 0929Indications:Myasthenia gravis with exacerbation, adult form (HCC) New Bag 07/04/2024 8:47 AM EST Inactive Administered Medications - up to 3 most recent administrations Medication Order MAR Action Action Date Dose Rate Site albumin (human) (Plasbumin-5) 5 % infusion Extracorporeal, ONCE, 1 dose, On Tue07/04/24 at 0930, For Apheresis ONLY At end of infusion document total amount infused. Please scan physician scribe "square" 2D barcode to record Lot/ Expiration, RoutineIndications:Myasthenia gravis with exacerbation, adult form (HCC) New Bag 07/04/2024 8:47 AM EST 2,453 mL sodium citrate 4% (Anticoagulant Sodium Citrate) inj 6 mL 6 mL, IV Lock, ONCE, On Tue07/04/24 at 0930, For 1 dose, For Apheresis ONLY [facility] ONLY - TUBE TO 401 3 mL each port. For locking catheterIndications:Myasthenia gravis with exacerbation, adult form (HCC) Given 07/04/2024 10:18 AM EST 6 mL documented in this encounter Advance Directives Documents on File Type Date Recorded Patient Esl Instructional Assistant Expl anation Power of Vocal Music Instructor 06/20/2018 POWER OF A TTORNEY POA: EDEL- [...] the patient have Health Care Power of Vocal Music Instructor? Yes, in chart and reviewed as current [...] Power of Attor ephraim? No Care Teams Records Clerk Relationship Specialty Start Date End Date Theresa Johnson MD [address] [place] [address] PCP - General Family Medicine 12/19/23 documented as of this encounter
--- OUTSIDE RECORDS SUMMARY | 2024-08-05 04:07 | External Medical Summary | Summary of Care ---
Author Name Unknown Organization [facility] Address [address] [place] [address] Phone [phone] Care Team Providers Care Compressed Yeast Supervisor Name Role Phone Theresa Johnson MD Primary Care Provider [phone] Reason for Visit * Reason Comments Treatment Encounter Details Date Type Department Care Team (Late st Contact Info) Description 07/04/2024 8:30 AM EST [facility] [address] [place] [address] Provider, Apheresis [facility] [address] [place], [place] [id number] Myasthenia gravis with exacerbation, adult form (HCC)* Allergies Active Allergy Reactions Criticality Noted Date Comments Benzalkonium Chloride 02/21/2015 Merthiolate "the orange kind" Caused a rash documented as of this encounter (statuses as of 07/19/2024) Medications ALEVE 220 MG PO CAPS Take 1 Capsule by mouth daily as needed. Active Fluticasone Propionate 50 MCG/ACT Nasal Suspension Administer 1 [place] into nostril in the morning. Active FIBER [...] 60 Tablet 4 06/11/19 25 Active pyRIDostigmine [place] 60 MG Oral Tablet (Mestinon) Take 1 Tablet by mouth every 6 hours. 120 Tablet 5 3:17 PM EST 06/27/19 25 025 Active predniSONE 10 MG Oral Tablet (Deltasone) Take 3 Tablets by mouth in the morning. 90 Tablet 5 3:17 PM EST 06/27/19 25 025 Active pyRIDostigmine [place] 60 MG Oral Tablet (Mestinon) Take 1 Tablet by mouth in the morning and 1 Tablet at noon and 1 Tablet before bedtime. 90 Tablet 4 06/11/19 25 025 Discontinued Mirtazapine 15 MG Oral Tablet (Remeron) Take [...] money to buy more. Never true 06/29/19 Within the past 12 months, t he [...] No 06/29/2024 Does the household have a zuni hospitallar source of income? 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 Safety and [...] 1:00 PM EST Hem/Onc Treatment Hematology/Oncology Treatment, [place] [address] [place] [address] Park, Chair 6 Hem Onc [address] [place] [address] 07/25/2024 11:00 AM EST Office Visit Neurology [address] [place] [address] Maksim Wright MD [address] [facility] [address] 07/27/2024 9:00 AM EST Telemedicine Neurology [address] [place] [address] [place], Pharmacist Neurology [address] [facility] [place], [place] [address] 12/11/2024 11:15 AM EDT Office Visit Urology, [facility] [address] [place] [address] Ramesh Phan MD [address] [place] [address] 02/07/2025 11:40 AM EDT Office Visit Family Practice [facility] [address] [facility] [place] [address] Theresa Johnson MD [address] [facility] [place] [address] 05/30/2025 11:15 AM EST Office Visit Dermatology [facility] [address] [facility] [place] [address] Marshall Henson MD [address] [facility] [place] [address] Scheduled Procedures Name Priority Associated Diagnoses Date/Ti [...] this encounter Medical Devices Implanted Type Area Third Grade Teacher Device Identifier Shelf Expiration Date Model / Serial / Lot Port Powerflow 9.6fr - [id number] Implanted:Qty : 1 on 03/15/2023 at [facility] CR BARD : PERIPHERAL VASCULAR [id number] 10/21/2023 [id number] / / [id number] Power Port 8fr Sngl Lumen Plas - [id number] Implanted:Qty : 1 on 03/15/2023 at [facility] CR BARD : PERIPHERAL VASCULAR [id number] 03/22/2024 [id number] / / [id number] Lens Li61ao 13.00mm 18.00 - [id number] - [id number] Implanted:Qty : 1 on 02/02/2024 by Andre Swartz MD at [facility] Right: Eye [employer]CH [employer] LOMB 08/20/2028 [id number] / [id number] / [id number] Lens Li61ao 13.00mm 17.50 - [id number] - [id number] Implanted:Qty : 1 on 02/16/2024 by Andre Swartz MD at [facility] Left: Eye BAUSCH [employer] LOMB 07/20/2028 [id number] / [id number] / [id number] documented as of this encounter Visit Diagnoses [...] infusion document total amount infused. Please scan machine stapler "square" 2D barcode to record Lot/ Expiration, RoutineIndications:Myasthenia gravis with exacerbation, adult form (HCC) New Bag 07/04/2024 8:47 AM EST 2,453 mL anticoagulant acid citrate dextrose (Acd-A) apheresis solution Extracorporeal, CONTINUOUS, Starting on Tue07/04/24 at 0930, Until Tue07/06/24 at 1552, For Apheresis ONLY For anticoagulation of extracorporeal circuit per protocol. At end of infusion document total amount infused.Indications:Myasthenia gravis with exacerbation, adult form (HCC) New Bag 07/04/2024 8:48 AM EST 108 mL NSS NG or OSTOMY REPLACEMENT Intravenous, For Apheresis ONLY use volume needed for pre and post flush and priming, CONTINUOUS, Starting on Tue07/04/24 at 0930, Until Tue07/06/24 at 1552Indications:Myasthenia gravis with exacerbation, adult form (HCC) New Bag 07/04/2024 8:47 AM EST sodium citrate 4% (Anticoagulant Sodium Citrate) inj 6 mL 6 mL, IV Lock, ONCE, On Tue07/04/24 at 0930, For 1 dose, For Apheresis ONLY [facility] ONLY - TUBE TO 401 3 mL each port. 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 Yes, in chart and reviewed as current [...] Power of Attor ephraim? No Care Teams Compressed Yeast Supervisor Relationship Specialty Start Date End Date Theresa Johnson MD [address] [place] [address] PCP - General Family Medicine 12/19/23 documented as of this encounter
--- OUTSIDE RECORDS SUMMARY | 2024-08-05 04:07 | External Medical Summary | Summary of Care ---
Author Name Unknown Organization [facility] Address [address] [place] [address] Phone [phone] Care Team Providers Care Motor Scooter Mechanic Name Role Phone Theresa Johnson MD Primary Care Provider [phone] Reason for Visit * Reason Comments Infusion Vygart * Episode Based Medications (Routine) - Authorized Specialty Diagnoses / Procedures Referred By Contlai t Referred To Contact Diagnoses Myasthenia gravis with exacerbation, adult form (HCC) Procedures PA INJECTION, EFGARTIGIMOD EVANGELINA-FCAB, 2MG Maksim Wright MD [address] [place] [address] Phone: tel: fax: Hematology/Oncology Treatment, [address] [address] Phone: tel: fax: Referral ID Status Reason Start Date Expiration Date V isits Requested Visits Authorized [id number] Authorized 11/04/2023 11/03/2024 99 99 Encounter Details Date Type Department Care Team (Latest Contact Info) Description 07/20/2024 1:00 PM EST Hem/Onc Treatment Hematology/Oncology Treatment, [address] [place] [address] Krista, Chair 6 Hem On[address] [place] [address] Myasthenia gravis with exacerbation, adult form (HCC)* Allergies Active Allergy Reactions Criticality Noted Date Comments Benzalkonium Chloride 02/21/2015 Merthiolate "the orange kind" Caused a rash documented as of this encounter (statuses as of 07/20/2024) Medications ALEVE 220 MG PO CAPS Take 1 Capsule by mouth daily as needed. Active Fluticasone Propionate 50 MCG/ACT Nasal Suspension Administer 1 [place] into nostril in the morning. Active FIBER [...] morning. 60 Tablet 4 5 Active pyRIDostigmine [place] 60 MG Oral Tablet (Mestinon) Take 1 Tablet by mouth every 6 hours. 120 Tablet 06/27/2024 3:17 PM EST 5 07/28/19 25 Active predniSONE 10 MG Oral Tablet (Deltasone) Take 3 Tablets by mouth in the morning. 90 Tablet 06/27/2024 3:17 PM EST 5 07/28/19 25 Active pyRIDostigmine [place] 60 MG Oral Tablet (Mestinon) Take 1 Tablet by mouth in the morning and 1 Tablet at noon and 1 Tablet in the evening and 1 Tablet before bedtime. 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 PIV in R antecubital. Pt tolerated well. VSS. Pt has no complaints at this time. Patient instructed on use of heat and massage functions where applicable. Patient shown how to operate the heat function of the chair and to alert nursing staff if the chair feels too warm. Patient instructed on the risk of potential rodriguez while using the heat function. 1450: Pt tolerated Vygart infusion well. PIV removed intact. Pt to return in 4 weeks. Discharged instable condition. documented in this encounter Plan of Treatment Upcoming Encounters Date Type Department Care Team (Late st Contact Info) Description 07/25/2024 11:00 AM EST Office Visit Neurology [address] [place] [address] Maksim Wright MD [address] [place], [place] [id number] 07/27/2024 9:00 AM EST Telemedicine Neurology [address] [place] [address] Nathan, Pharmacist Neurology [address] [place] [address] 12/11/2024 11:15 AM EDT Office Visit Urology, [facility] [address] [facility] [place] [address] Ramesh Phan MD [address] [place] [address] 02/07/2025 11:40 AM EDT Office Visit Family Practice [facility] [address] [facility] [place] [address] Theresa Johnson MD [address] [facility] [place] [address] 05/30/2025 11:15 AM EST Office Visit Dermatology [facility] [address] [facility] [place] [address] Marshall Henson MD [address] [facility] [place] [address] Scheduled Procedures Name Priority Associated Diagnoses Date/Ti [...] encounter Medical Devices Implanted Type Area Engineer Technician Device Identifier Shelf Expiration Date Model / Serial / Lot Port Powerflow 9.6fr - [id number] Implanted:Qty : 1 on 03/15/2023 at [facility] CR BARD : PERIPHERAL VASCULAR [id number] 10/21/2023 [id number] / / [id number] Power Port 8fr Sngl Lumen Plas - [id number] Implanted:Qty : 1 on 03/15/2023 at [facility] CR BARD : PERIPHERAL VASCULAR [id number] 03/22/2024 [id number] / / [id number] Lens Li61ao 13.00mm 18.00 - [id number] - [id number] Implanted:Qty : 1 on 02/02/2024 by Andre Swartz MD at [facility] Right: Eye BAUSCH [employer] LOMB 08/20/2028 [id number] / [id number] / [id number] Lens Li61ao 13.00mm 17.50 - [id number] - [id number] Implanted:Qty : 1 on 02/16/2024 by Andre Swartz MD at [facility] Left: Eye BAUSCH & LOMB 07/20/2028 [id number] / [id number] / [id number] documented as of this encounter Visit Diagnoses Diagnosis Myasthenia gravis with exacerbation, adult form (HCC)- Primary Myasthenia gravis with exacerbation documented in this encounter Administered Medications Inactive Administered Medications - up to 3 most recent administrations Medication Order MAR Action Action Date Dose Rate Site Efgartigimod evangelina-fcab (Vyvgart) 800 mg in NSS 125 mL infusion 800 mg, IV Piggyback, ONCE, 1 dose, On Tue07/20/24 at 1400, Dose basis = 10 mg/kg In NSS - Note: VOLUME TO BE INFUSED 125 ML Infuse over 1 hour via a 0.2 micron in-line filter; do not administer as IV push or bolus. Following administration, flush entire line with NS.Indications:Myasthenia gravis with exacerbation, adult form (HCC) Start Infusion 07/20/2024 1:44 PM EST 800 mg 125 mL/hr NSS infusion Intravenous, at 50 mL/hr, PRN, Starting on Tue07/20/24 at 1400, Until Tue07/20/24 at 1930, Maintenance lineIndications:Myasthenia gravis with exacerbation, adult form (HCC) Start Infusion 07/20/2024 1:13 PM EST 50 mL/hr documented in this encounter Advance Directives Documents on File Type Date Recorded Patient Production Machine Computer Operator Expl anation Power of Veterinary Technology Instructor 06/20/2018 POWER OF A TTORNEY POA: [...] the patient have Health Care Power of Veterinary Technology Instructor? Yes, in chart and reviewed as [...] Power of Attor ephraim? No Care Teams Motor Scooter Mechanic Relationship Specialty Start Date End Date Theresa Johnson MD [address] [facility] [place] [address] PCP - General Family Medicine 12/19/23 documented as of this encounter
--- OUTSIDE RECORDS SUMMARY | 2024-08-05 04:07 | External Medical Summary | Summary of Care ---
Author Name Unknown Organization [facility] Address [address] [place] [address] Phone [phone] Care Team Providers Care Boats Renter Name Role Phone Theresa Johnson MD Primary Care Provider [phone] Reason for Visit * Reason Onset Date Comments Information 07/19/2024 Encounter Details Date Type Department Care Team (Late st Contact Info) Description 07/19/2024 Telephone Hematology/Oncology Treatment, [place] [address] [place] [address] Maksim Wright MD [address] [place] [address] Information Allergies Active Allergy Reactions Criticality Noted Date Comments Benzalkonium Chloride 02/21/2015 Merthiolate "the orange kind" Caused a rash documented as of this encounter (statuses as of 07/19/2024) Medications ALEVE 220 MG PO CAPS Take 1 Capsule by mouth daily as needed. Active Fluticasone Propionate 50 MCG/ACT Nasal Suspension Administer 1 [place] into nostril in the morning. Active FIBER [...] 60 Tablet 4 06/11/19 25 Active pyRIDostigmine [place] 60 MG Oral Tablet (Mestinon) Take 1 Tablet by mouth every 6 hours. 120 Tablet 5 3:17 PM EST 06/27/19 25 025 Active predniSONE 10 MG Oral Tablet (Deltasone) Take 3 Tablets by mouth in the morning. 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 on file Not on [...] of Assessment Author No 06/24/2024 9:28 AM Mraguerite Mack RN documented as of this encounter [...] 1:00 PM EST Hem/Onc Treatment Hematology/Oncology Treatment, [place] [address] [place] [address] Park, Chair [address] [address] 07/25/2024 11:00 AM EST Office Visit Neurology [address] [place] [address] Maksim Wright MD [address] [facility] [place] [address] 07/27/2024 9:00 AM EST Telemedicine Neurology [address] [place] [address] [place], Pharmacist Neurology [address] [place] [address] 12/11/2024 11:15 AM EDT Office Visit Urology, [facility] [address] [place] [address] Ramesh Phan MD [address] [place] [address] 02/07/2025 11:40 AM EDT Office Visit Family Practice [facility] [address] [facility] [place] [address] Theresa Johnson MD [address] [facility] [place] [address] 05/30/2025 11:15 AM EST Office Visit Dermatology [facility] [address] [facility] [place] [address] Marshall Henson MD [address] [facility] [place] [address] Scheduled Procedures Name Priority Associated Diagnoses Date/Ti [...] this encounter Medical Devices Implanted Type Area Shipping And Receiving Material Handler Device Identifier Shelf Expiration Date Model / Serial / Lot Port Powerflow 9.6fr - [id number] Implanted:Qty : 1 on 03/15/2023 at [facility] CR BARD : PERIPHERAL VASCULAR [id number] 10/21/2023 [id number] / / [id number] Power Port 8fr Sngl Lumen Plas - [id number] Implanted:Qty : 1 on 03/15/2023 at [facility] CR BARD : PERIPHERAL VASCULAR [id number] 03/22/2024 [id number] / / [id number] Lens Li61ao 13.00mm 18.00 - [id number] - [id number] Implanted:Qty : 1 on 02/02/2024 by Andre Swartz MD at [facility] Right: Eye BAUSCH [employer] LOMB 08/20/2028 [id number] / [id number] / [id number] Lens Li61ao 13.00mm 17.50 - [id number] - [id number] Implanted:Qty : 1 on 02/16/2024 by Andre Swartz MD at [facility] Left: Eye BAUSCH & LOMB 07/20/2028 [id number] / [id number] / [id number] documented as of this encounter Advance Directives Documents on File Type Date Recorded Patient Copy Writer Expl anation Power of Chemical Process Project Engineer 06/20/2018 POWER OF A TTORNEY POA: [...] the patient have Health Care Power of Chemical Process Project Engineer? Yes, in chart and reviewed as current [...] Power of Attor ephraim? No Care Teams Boats Renter Relationship Specialty Start Date End Date Theresa Johnson MD [address] [place] [address] PCP - General Family Medicine 12/19/23 documented as of this encounter
--- OUTSIDE RECORDS SUMMARY | 2024-08-05 04:07 | External Medical Summary | Summary of Care ---
Author Name Unknown Organization [facility] [address] [facility] [address] Phone [phone] Care Team Providers Care Mark Up Designer Name Role Phone Theresa Johnson MD Primary Care Provider Reason for Visit * Reason Comments Hospital Follow-Up Encounter Details Date Type Department Care Team (Late st Contact Info) Description 07/10/2024 10:00 AM EST Office Visit [facility] [address] [facility] [place] [address] Theresa Johnson MD [address] [place] [address] Hospital discharge follow-up*; Myasthenia gravis (HCC); Myasthenia gravis with exacerbation, adult form (HCC); Prostate cancer (HCC); BPH with obstruction/lower urinary tract symptoms Allergies Active Allergy Reactions Criticality Noted Date Comments Benzalkonium Chloride 02/21/2015 Merthiolate "the orange kind" Caused a rash documented as of this encounter (statuses as of 07/26/2024) Medications ALEVE 220 MG PO CAPS Take 1 Capsule by mouth daily as needed. Active Fluticasone Propionate 50 MCG/ACT Nasal Suspension Administer 1 [place] into nostril as needed. Active FIBER ADULT [...] on 07/25/2024 Mirtazapine 15 MG Oral Tablet (Remeron)Indica tions:Adjustmen [...] every 3 days. 3 Patch 03/19/20 24 2024 Discontinued(M edication List Clean Up) pyRIDostigmine [place] 60 MG Oral Tablet (Mestinon) Take 1 Tablet by mouth in the morning and 1 Tablet at noon and 1 Tablet before bedtime. 90 Tablet 4 06/11/19 25 2024 Discontinued pyRIDostigmine [place] 60 MG Oral Tablet (Mestinon) Take 1 Tablet by mouth every 6 hours. 120 Tablet 5 3:17 PM EST 06/27/19 25 2024 Discontinued(M edication List Clean Up) predniSONE 10 MG Oral Tablet (Deltasone) Take 3 Tablets by mouth in the morning. 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 on file Not on file documented as of this encounter Last Filed Vital Signs Vital Sign Reading Time Taken Comments Blood Pressure 130/60 07/10/2024 10:02 AM EST Pulse 88 07/10/2024 10:02 AM EST Temperature 36.2 C (97.1 F) 07/10/2024 10:[address] Respiratory Rate 16 07/10/2024 10:02 AM EST Oxygen Saturation 97% 07/10/2024 10:02 AM EST Inhaled Oxygen Concentration - - Weight 86.7 kg (191 lb 1.9 oz) 07/10/2024 10:02 AM EST Height - - Body Mass Index 29.93 06/24/2024 9:28 AM EST documented in this encounter Functional [...] Progress Notes * Theresa Johnson MD - 07/10/2024 10:05 AM EST Subjective Chief Complaint Patient presents with Hospital Follow-Up HPI: Giorgio Sosa is a 74 year old male. The following issues were addressed today: Date of admission: 06/24/24 Date of discharge: 06/27/24 Date of VALERIE phone /call: 06/28/24 Hospital course: 74 yo male with PMH myasthenia gravis (diplopia, facial weakness, ptosis right eye), BPH, prostate cancer, hx basal cell cancer. Presented to [facility] ED. Patient reports self tapering his prednisone over the past 2 months lead to increased difficulty swallowing and culminated in inability to swallow which lead him to the ED. Concerns for myasthenia crisis lead patient to being started on IVIG, and recommended transfer to [facility] ICU. Neurology ICU full, patient transferred to [facility]. Neurology consulted and recommended no more IVIG and to get a tunneled CVC placed for plasmapheresis. He received 2 sessions of PLEX with good improvement. Was sent home on current doses of Prednisone 30 mg qD and Mestinon 60 mg q6. He was tolerating this regimen well. He will require further PLEX treatments as an outpatient. Follow up with Dr. Wright (neurology) as an outpatient. Tests/studies pending at time of discharge: None Home/outpatient services ordered: None Course since hospitalization: Patient states he is feeling better. He is no longer having difficulty swallowing. States he is being cautious and chewing into small bites. Feeling less fatigued and like he is gaining strength back. He is done with PLEX treatments and restarted Vyvgart infusions lastFriday. Still having double vision. States in the past prednisone helped this. Does think this is improving a little bit. He sees Dr. Jaimes on 07/25/24. Patient was staying in [place] for a while with his daughter but is now back home. Using a cane to get around but does not feel he really needs it. Hoping to get back into the gym to walk on treadmill. Review of Systems: See HPI Objective BP 130/60 | Pulse 88 | Temp 97.1 F (36.2 C) (Tympanic) | Resp 16 | Wt 191 lb 1.9 oz (86.7 kg) |SpO2 97% | BMI 29.93 kg/m | BSA 2.02 m Wt Readings from Last 3 Encounters: 07/25/24 187 lb 11.2 oz (85.1 kg) 07/10/24 191 lb 1.9 oz (86.7 kg) 06/27/24 187 lb 8 oz (85 kg) BP Readings from Last 3 Encounters: 07/25/24 144/63 07/20/24 128/65 07/13/24 135/67 General: Well-appearing, no acute distress Cardiovascular: Regular rate and rhythm, no murmur Respiratory: Good respiratory effort, breath sounds equal and clear to auscultation bilaterally Extremities: No edema Neurological: Alert and oriented Psychiatric: Appropriate mood and affect Assessment & Plan 1. Hospital discharge follow-up - DISCH MED RECON CUR MED LIS 2. Myasthenia gravis (HCC) 3. Myasthenia gravis with exacerbation, adult form (HCC) Exacerbation improved. Continue Vyvgart infusions, prednisone. Follow-up with Dr. Jaimes on 07/25/24 as scheduled. 4. Prostate cancer (HCC) Low volume [place] 3+3 CAP diagnosed Apr 2015. Continuing active surveillance with urology. 5. BPH with obstruction/lower urinary tract symptoms Continue finasteride 5mg daily. Follows with urology. Follow Up: Return in 7 months (on 02/07/2025). This note was electronically signed by Theresa Johnson MD I spent a total of 30-39 minutes (exact time 35 mins) on the date of service in preparation, delivery, and documentation of the care provided to Giorgio Sosa excluding any time spent in the performance of separately billed services or time spent by another provider/QHP. documented in this encounter Nursing Notes * Paola Serrano LPN - 07/10/2024 9:55 AM EST Giorgio Sosa presents for hospital follow up. Medications & HM reviewed. [facility] [place] 06/24-06/27 Myasthenia gravis W/ exacerbation documented in this encounter Plan of Treatment Upcoming Encounters Date Type Department Care Team (Late st Contact Info) Description 07/27/2024 9:00 AM EST Telemedicine Neurology [address] [place] [phone] [place], Pharmacist Neurology [address] [place] [address] [place] [address] 08/23/2024 1:15 PM EDT Scheduled Telephone Neurology [address] [place] [address] Neuromuscular, Phone Nurse Neuro 100 [facility] [place] [address] 12/11/2024 11:15 AM EDT Office Visit Urology, [facility] 132 [facility] [place] [address] Ramesh Phan MD [address] [place] [address] 01/30/2025 3:00 PM EDT Office Visit Neurology [address] [address] [place] [phone] Maksim Wright MD [address] [place] [address] 02/07/2025 11:40 AM EDT Office Visit Family Practice [facility] [address] [facility] [place] [address] Theresa Johnson MD [address] [facility] [place] [address] 05/30/2025 11:15 AM EST Office Visit Dermatology [facility] 200 [facility] [place] [address] Marshall Henson MD [address] [facility] [place] [address] Scheduled Procedures Name Priority Associated Diagnoses Date/Ti [...] this encounter Medical Devices Implanted Type Area Bobbin Washer Device Identifier Shelf Expiration Date Model / Serial / Lot Port Powerflow 9.6fr - [id number] Implanted:Qty : 1 on 03/15/2023 at [facility] CR BARD : PERIPHERAL VASCULAR [id number] 10/21/2023 [id number] / / [id number] Power Port 8fr Sngl Lumen Plas - [id number] Implanted:Qty : 1 on 03/15/2023 at [facility] CR BARD : PERIPHERAL VASCULAR [id number] 03/22/2024 [id number] / / [id number] Lens Li61ao 13.00mm 18.00 - [id number] - [id number] Implanted:Qty : 1 on 02/02/2024 by Andre Swartz MD at [facility] Right: Eye BAUSCH & LOMB 08/20/2028 [id number] / [id number] / [id number] Lens Li61ao 13.00mm 17.50 - [id number] - [id number] Implanted:Qty : 1 on 02/16/2024 by Andre Swartz MD at [facility] Left: Eye BAUSCH & LOMB 07/20/2028 [id number] / [id number] / [id number] documented as of this encounter Visit Diagnoses Diagnosis Hospital discharge follow-up- Primary Other follow-up examination Myasthenia gravis (HCC) Myasthenia gravis without exacerbation Myasthenia gravis with exacerbation, adult form (HCC) Myasthenia gravis with exacerbation Prostate cancer (HCC) Malignant neoplasm of prostate BPH with obstruction/lower urinary tract symptoms Hypertrophy of prostate with urinary obstruction and other lower urinary tract symptoms (LUTS) documented in this encounter Advance Directives Documents on File Type Date Recorded Patient Director Medical Science Expl anation Power of Fire Protection Designer 06/20/2018 POWER OF A TTORNEY POA: EDEL- [...] 9:38 AM 06/24/2024 11:50 AM This order r eflects the patients wishes and were consensually agreed upon. Question Answer Comments Discussion of Advance Direct cooper occurred with: Not Discussed due to patient's condition Does the patient have Health Care Power of Fire Protection Designer? Yes, in chart and reviewed as current [...] Power of Attor ephraim? No Care Teams Mark Up Designer Relationship Specialty Start Date End Date Theresa Johnson MD [address] [place] [address] PCP - General Family Medicine 12/19/23 documented as of this encounter
--- OUTSIDE RECORDS SUMMARY | 2024-08-05 04:08 | External Medical Summary | Summary of Care ---
Author Name Unknown Organization [facility] Address [address] [place] [address] Phone [phone] Care Team Providers Care General Office Assistant Name Role Phone Theresa Johnson MD Primary Care Provider [phone] Reason for Visit * Reason Comments Treatment plasmapheresis Encounter Details Date Type Department Care Team (Late st Contact Info) Description 06/29/2024 2:00 PM EST Office Visit Apheresis Clinic, [place] [address] [place] [address] Provider, Apheresis [facility] [place], [place] [id number] Myasthenia gravis with exacerbation, adult form (HCC)* Allergies Active Allergy Reactions Criticality Noted Date Comments Lactose Diarrhea 06/25/2024 Only milk bothers patient. He eats ice cream, yogurt and cheese. Benzalkonium Chloride 02/21/2015 Merthiolate "the orange kind" Caused a rash documented as of this encounter (statuses as of 07/05/2024) Medications ALEVE 220 MG PO CAPS Take 1 Capsule by mouth daily as needed. Active Fluticasone Propionate 50 MCG/ACT Nasal Suspension Administer 1 [place] into nostril in the morning. Active FIBER [...] morning. 60 Tablet 4 5 Active pyRIDostigmine [place] 60 MG Oral Tablet (Mestinon) Take 1 Tablet by mouth in the morning and 1 Tablet at noon and 1 Tablet before bedtime. 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 Current treatment schedule: Third out of a scheduled five (07/25) Filed Vitals: Filed Vitals: 06/29/24 1348 06/29/24 1532 BP: 143/63 104/48 Pulse: 72 67 Temp: 36.4 C (97.5 F) Limited Physical Exam: General: NAD Relevant current (07/02/2024) laboratory results: WBC Date Value Ref Range Status 06/27/2024 10.57 4.00 - 10.80 K/uL Final HGB Date Value Ref Range Status 06/27/2024 15.3 14.0 - 16.8 g/dL Final HCT Date Value Ref Range Status 06/27/2024 45.2 40.0 - 48.4 % Final PLT Date Value Ref Range Status 06/27/2024 211 140 - 400 K/uL Final Number of plasma volumes exchanged: 1.0 Access: Dialysis Catheter: Continued need for apheresis There were no complications during the procedure. I evaluated the patient for this procedure and was available throughout the duration of the procedure. documented in this encounter Nursing Notes * Jessi Cheng RN - 06/29/2024 1:44 PM EST [facility] Nursing Care Plan ID is not set. [...] Temperature of 70F - 75F in room 6 within normal limits. Humidity of 20% - 60% recorded at 1200, within normal limits, discussed with APHERESIS PROVIDER. The provider has made a clinical evaluation to proceed with the procedure. All sterile instruments and supplies being used for the procedureshave been visually inspected for any signs of being compromised, including but not limited to, water stains on wrap and instruments, condensation on wrap or instruments, and torn or damaged packaging. documented in this encounter Plan of Treatment Upcoming Encounters Date Type Department Care Team (Late st Contact Info) Description 07/05/2024 5:00 PM EST Scheduled Telephone Care Coordination and Integration [address] [place] [address] Ana Alfonso, Community Health Assistant Mechanic [address] [place] [address] 07/06/2024 9:30 AM EST Hem/Onc Treatment Hematology/Oncology Treatment, [address] [place] [address] Krista, Chair 10 Hem On[address] [place] [address] 07/10/2024 10:00 AM EST Office Visit Family Practice [facility] [place] [address] [place] [address] Theresa Johnson MD [address] [place], [place] [address] [address] 07/13/2024 9:30 AM EST Hem/Onc Treatment Hematology/Oncology Treatment, [address] [place] [address] Park, Chair 5 Hem Onc [facility] 200 [facility] [place], [place] [address] 07/20/2024 9:30 AM EST Hem/Onc Treatment Hematology/Oncology Treatment, [place] 200 [facility], [place] [id number] Park, Chair 9 Hem Onc [facility] 200 [facility] [place], [place] [address] 07/25/2024 11:00 AM EST Office Visit Neurology [address] [place] [address] Maksim Wright MD [address] [place], [place] [phone] 07/27/2024 9:00 AM EST Telemedicine Neurology [address] [place] [address] Nathan, Pharmacist Neurology [address] [place], [place] [id number] 09/13/2024 11:20 AM EDT Office Visit Family Practice [facility] [address] [place] [address] Theresa Johnson MD 200 [facility] [place] [address] 12/11/2024 11:15 AM EDT Office Visit Urology, [facility] 132 [facility] [place] [address] Ramesh Phan MD [address] [place] [address] 05/30/2025 11:15 AM EST Office Visit Dermatology [facility] [address] [place] [address] Marshall Henson MD 200 [place] [address] Scheduled Procedures Name Priority Associated Diagnoses Date/Ti [...] this encounter Medical Devices Implanted Type Area Heavy Equipment Mechanic Device Identifier Shelf Expiration Date Model / Serial / Lot Port Powerflow 9.6fr - [id number] Implanted:Qty : 1 on 03/15/2023 at [facility] CR BARD : PERIPHERAL VASCULAR [id number] 10/21/2023 [id number] / / [id number] Power Port 8fr Sngl Lumen Plas - [id number] Implanted:Qty : 1 on 03/15/2023 at [facility] CR BARD : PERIPHERAL VASCULAR [id number] 03/22/2024 [id number] / / [id number] Lens Li61ao 13.00mm 18.00 - [id number] - [id number] Implanted:Qty : 1 on 02/02/2024 by Andre Swartz MD at [facility] Right: Eye BAUSCH [employer] LOMB 08/20/2028 [id number] / [id number] / [id number] Lens Li61ao 13.00mm 17.50 - [id number] - [id number] Implanted:Qty : 1 on 02/16/2024 by Andre Swartz MD at [facility] Left: Eye BAUSCH & LOMB 07/20/2028 [id number] / [id number] / [id number] documented as of this encounter Visit Diagnoses Diagnosis Myasthenia gravis with exacerbation, adult form (HCC)- Primary Myasthenia gravis with exacerbation documented in this encounter Administered Medications Inactive Administered Medications - up to 3 most recent administrations Medication Order MAR Action Action Date Dose Rate Site albumin (human) (Plasbumin-5) 5 % infusion Extracorporeal, ONCE, 1 dose, On Tue06/29/24 at 1430, For Apheresis ONLY At end of infusion document total amount infused. Please scan feed and farm management adviser "square" 2D barcode to record Lot/ Expiration, RoutineIndications:Myasthenia gravis with exacerbation, adult form (HCC) New Bag 06/29/2024 1:45 PM EST 2,495 mL anticoagulant acid citrate dextrose (Acd-A) apheresis solution Extracorporeal, CONTINUOUS, Starting on Tue06/29/24 at 1430, Until 07/02/24 at 0929, For Apheresis ONLY For anticoagulation of extracorporeal circuit per protocol. At end of infusion document total amount infused.Indications:Myasthenia gravis with exacerbation, adult form (HCC) New Bag 06/29/2024 1:46 PM EST 154 mL NSS NG or OSTOMY REPLACEMENT Intravenous, For Apheresis ONLY use volume needed for pre and post flush and priming, CONTINUOUS, Starting on Tue06/29/24 at 1430, Until Tue07/02/24 at 0929Indications:Myasthenia gravis with exacerbation, adult form (HCC) New Bag 06/29/2024 1:46 PM EST sodium citrate 4% (Anticoagulant Sodium Citrate) inj 6 mL 6 mL, IV Lock, ONCE, On Tue06/29/24 at 1430, For 1 dose, For Apheresis ONLY [facility] ONLY - TUBE TO 401 3 mL each port. For locking catheterIndications:Myasthenia gravis with exacerbation, adult form (HCC) Given 06/29/2024 3:15 PM EST 6 mL documented in this encounter Advance Directives Documents on File Type Date Recorded Patient Utilization Review Specialist Expl anation Power of Rn Documentation 06/20/2018 POWER OF A TTORNEY POA: EDEL- [...] the patient have Health Care Power of Rn Documentation? Yes, in chart and reviewed as current [...] Power of Attor ephraim? No Care Teams General Office Assistant Relationship Specialty Start Date End Date Theresa Johnson MD 200 [facility] [place] [address] PCP - General Family Medicine 12/19/23 documented as of this encounter
--- OUTSIDE RECORDS SUMMARY | 2024-08-05 04:08 | External Medical Summary | Summary of Care ---
Author Name Unknown Organization [facility] Address [address] [place] [address] Phone [phone] Care Team Providers Care Dry Room Attendant Name Role Phone Theresa Johnson MD Primary Care Provider Reason for Visit * Reason Comments Infusion Vygart * Episode Based Medications (Routine) - Authorized Specialty Diagnoses / Procedures Referred By Contlai t Referred To Contact Diagnoses Myasthenia gravis with exacerbation, adult form (HCC) Procedures AK INJECTION, EFGARTIGIMOD EVANGELINA-FCAB, 2MG Maksim Wright MD [address] [place] [address] Phone: tel: fax: Hematology/Oncology Treatment, [address] [place] [address] Phone: tel: fax: Referral ID Status Reason Start Date Expiration Date V isits Requested Visits Authorized [id number] Authorized 11/04/2023 11/03/2024 99 99 Encounter Details Date Type Department Care Team (Latest Contact Info) Description 07/06/2024 9:30 AM EST Hem/Onc Treatment Hematology/Oncology Treatment, [address] [place] [address] Krista, Chair 10 Hem [place] [place] [address] Myasthenia gravis with exacerbation, adult form (HCC)* [...] Propionate 50 MCG/ACT Nasal Suspension Administer 1 [place] into nostril in the morning. Active FIBER [...] morning. 60 Tablet 4 5 Active pyRIDostigmine Startex 60 MG Oral Tablet (Mestinon) Take 1 Tablet by mouth in the morning and 1 Tablet at noon and 1 Tablet before bedtime. 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 [place], [place] [address] 07/13/2024 9:30 AM EST Hem/Onc Treatment Hematology/Oncology Treatment, [place] 200 [facility] [place] [phone] Park, Chair [address] [facility] [address] [place] [address] [address] 07/20/2024 9:30 AM EST Hem/Onc Treatment Hematology/Oncology Treatment, [place] 200 [facility] [place] [phone] Krista, Chair 9 Hem Onc Sc[address] [place], [place] [address] 07/25/2024 11:00 AM EST Office Visit Neurology [address] [place] [address] Maksim Wright MD [address] [place] [address] 07/27/2024 9:00 AM EST Telemedicine Neurology [address] [place] [address] Nathan Pharmacist Neurology [address] [place] [address] 09/13/2024 11:20 AM EDT Office Visit [facility] [place] [address] [place], [place] [address] Theresa Johnson MD [address] [place] [address] 12/11/2024 11:15 AM EDT Office Visit Urology, [facility] [address] [place] [address] Ramesh Phan MD [address] [place] [address] 05/30/2025 11:15 AM EST Office Visit Dermatology [facility] [address] [facility] [place] [address] Marhsall Henson MD [address] [place] [address] Scheduled Procedures Name Priority Associated Diagnoses Date/Ti [...] this encounter Medical Devices Implanted Type Area Automotive Sales Professional Device Identifier Shelf Expiration Date Model / Serial / Lot Port Powerflow 9.6fr - [id number] Implanted:Qty : 1 on 03/15/2023 at [facility] CR BARD : PERIPHERAL VASCULAR [id number] 10/21/2023 [id number] / / [id number] Power Port 8fr Sngl Lumen Plas - [id number] Implanted:Qty : 1 on 03/15/2023 at [facility] CR BARD : PERIPHERAL VASCULAR [id number] 03/22/2024 [id number] / / [id number] Lens Li61ao 13.00mm 18.00 - [id number] - [id number] Implanted:Qty : 1 on 02/02/2024 by Andre Swartz MD at [facility] Right: Eye BAUSCH & LOMB 08/20/2028 [id number] / [id number] / [id number] Lens Li61ao 13.00mm 17.50 - [id number] - [id number] Implanted:Qty : 1 on 02/16/2024 by Andre Swartz MD at [facility] Left: Eye BAUSCH & LOMB 07/20/2028 [id number] / [id number] / [id number] documented as of this encounter Visit Diagnoses Diagnosis Myasthenia gravis with exacerbation, adult form ([facility])- Primary Myasthenia gravis with exacerbation documented in this encounter Administered Medications Active Administered Medications - up to 3 most recent administrations Medication Order MAR Action Action Date Dose Rate Site diphenhydrAMINE (Benadryl) inj 50 mg 50 mg, IV Push, ONCE PRN Other, Hypersensitivity Reaction, Starting on Tue07/06/24 at 0918, Until 07/07/24 at 0917, For 24 hoursIndications:Myasthenia gravis with exacerbation, adult form ([facility]) EPINEPHrine 1 MG/ML inj 0.3 mg 0.3 mg, Intramuscular, ONCE PRN Other, Hypersensitivity Reaction or Anaphylaxis, Starting on Tue07/06/24 at 0919, Until 07/07/24 at 0918, For 24 hoursIndications:Myasthenia gravis with exacerbation, adult form ([facility]) hEParin 100 UNIT/ML Lock Flush inj 500 Units 500 Units (5 mL), IV Lock, PRN Other, IV Flush, Starting on Tue07/06/24 at 0918, Until 07/07/24 at 0917, For 24 hours, Do not flush if lock, PICC, or central line not in place; IV infusing or unable to flush.Indications:Myasthenia gravis with exacerbation, adult form ([facility]) Hydrocortisone Sod Suc (PF) (Solu-Cortef) inj 100 mg 100 mg, IV Push, ONCE PRN Other, Hypersensitivity Reaction, Starting on Tue07/06/24 at 0918, Until 07/07/24 at 0917, For 24 hoursIndications:Myasthenia gravis with exacerbation, adult form ([facility]) NSS infusion Intravenous, at 50 mL/hr, PRN, Starting on Tue07/06/24 at 1030, Until Discontinued, Maintenance lineIndications:Myasthenia gravis with exacerbation, adult form ([facility]) Start Infusion 07/06/2024 9:36 AM EST 50 mL/hr oxygen GAS Inhalation, OXYGEN, First dose on Tue07/06/24 at 1000, Until Discontinued, Device/Managed by: Low [...] greater than or equal to 93%Indications:Myasthenia gravis with exacerbation, adult form ([facility]) sodium chloride 0.9 % flush central line 10 mL 10 mL, IV Push, PRN Other, IV Flush, Starting on Tue07/06/24 at 0918, Until 07/07/24 at 0917, For 24 hours, Do not flush if lock, PICC, or central line not in place; IV infusing or unable to flush.Indications:Myasthenia gravis with exacerbation, adult form (HCC) Inactive Administered Medications - up to [...] 9:58 AM EST 800 mg 125 mL/hr documented in this encounter Advance Directives Documents on File Type Date Recorded Patient Market Research Consultant Expl anation Power of Front Loader Residential Driver 06/20/2018 POWER OF A TTORNEY POA: [...] the patient have Health Care Power of Front Loader Residential Driver? Yes, in chart and reviewed as [...] Power of Attor ephraim? No Care Teams Dry Room Attendant Relationship Specialty Start Date End Date Theresa Johnson MD [address] [facility] [place] [address] PCP - General Family Medicine 12/19/23 documented as of this encounter
--- OUTSIDE RECORDS SUMMARY | 2024-08-05 04:08 | External Medical Summary | Summary of Care ---
Author Name Unknown Organization [facility] Address [address] [facility] [place] [address] Phone [phone] Care Team Providers Care Retail Support Manager Name Role Phone Theresa Johnson MD Primary Care Provider [phone] Reason for Visit * Reason Onset Date Comments Follow Up 07/04/2024 Adriana/eliza luciano call Encounter Details Date Type Department Care Team (Late st Contact Info) Description 07/04/2024 2:00 PM EST Scheduled Telephone Neurology [address] [place] [address] Neuromuscular, Phone Nurse Neuro [address] [place] [address] Allergies Active Allergy Reactions Criticality [...] Propionate 50 MCG/ACT Nasal Suspension Administer 1 [place] into nostril in the morning. Active [...] morning. 60 Tablet 4 5 Active pyRIDostigmine [place] 60 MG Oral Tablet (Mestinon) Take 1 Tablet by mouth in the morning and 1 Tablet at noon and 1 Tablet before bedtime. 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 Had 5 treatments of Plex as outpatient. Scheduled for Vyvgart on 07/06/2024 (2nd infusion) Pt had last plex this am and port removed. Called Giorgio at this time Pt states he feels very good Gaining stamina Swallowing- no problems Prednisone 30mg po daily Mestinon 60mg po QID Pt is interested in the Mestinon ER? Has an appointment on 07/25/2024 with you unless you want to address sooner. documented in this encounter Plan of Treatment Upcoming Encounters Date Type Department Care Team (Late st Contact Info) Description 07/05/2024 7:15 AM EST Pharmacy Neurology [address] [place] [phone] Nathan, Pharmacist Neurology 100 [facility] [place] [address] Myasthenia gravis (HCC)* 07/06/2024 9:30 AM EST Hem/Onc Treatment Hematology/Oncolog y Treatment, [place] [address] [place] [phone] Krista, Chair 10 Hem Onc [facility] 200 [facility] [place] [address] 07/10/2024 10:00 AM EST Office Visit Family Practice [facility] Krista [place] 200 [facility] [place] [address] Theresa Johnson MD 200 [facility] [place] [address] 07/13/2024 9:30 AM EST Hem/Onc Treatment Hematology/Oncolog y Treatment, [place] 200 [facility] [place] [address] Krista, Chair 5 Hem Onc [facility] [address] [place] [id number] 07/20/2024 9:00 AM EST Telemedicine Neurology [address] [place] [address] Nathan, Pharmacist Neurology [address] [place], [place] [phone] 07/20/2024 9:30 AM EST Hem/Onc Treatment Hematology/Oncolog y Treatment, [place] 200 [facility] [place] [address] Krista, Chair 9 Hem Onc [facility] [address] [place] [address] 07/25/2024 11:00 AM EST Office Visit Neurology Nathan [address] [place] [address] Maksim Wright MD [address] [place] [address] 09/13/2024 11:20 AM EDT Office Visit Family Practice [facility] [address] [place], [place] [address] Theresa Johnson MD [address] [place], [place] [address] 12/11/2024 11:15 AM EDT Office Visit Urology, [facility] 132 [facility] [place] [address] Ramesh Phan MD [address] [place] [address] [address] 05/30/2025 11:15 AM EST Office Visit Dermatology [facility] [address] [place] [address] Marshall Henson MD 200 [facility], [place] [address] Scheduled Procedures Name Priority Associated Diagnoses Date/Ti [...] this encounter Medical Devices Implanted Type Area Can Maker Device Identifier Shelf Expiration Date Model / Serial / Lot Port Powerflow 9.6fr - [id number] Implanted:Qty : 1 on [facility]/2023 [facility] CR BARD : PERIPHERAL VASCULAR [id number] 10/21/2023 [id number] / / [id number] Power Port 8fr Sngl Lumen Plas - [id number] Implanted:Qty : 1 on 03/15/2023 at [facility] CR BARD : PERIPHERAL VASCULAR [id number] 03/22/2024 [id number] / / [id number] Lens Li61ao 13.00mm 18.00 - [id number] - [id number] Implanted:Qty : 1 on 02/02/2024 by Andre Swartz MD at OR [facility] Right: Eye BAUSCH & LOMB 08/20/2028 [id number] / [id number] / [id number] Lens Li61ao 13.00mm 17.50 - [id number] - [id number] Implanted:Qty : 1 on 02/16/2024 by Andre Swartz MD at OR [facility] Left: Eye BAUSCH & LOMB 07/20/2028 [id number] / [id number] / [id number] documented as of this encounter Advance Directives Documents on File Type Date Recorded Patient Assembler Erector Expl anation Power of Pallet Assembler 06/20/2018 POWER OF A TTORNEY POA: [...] the patient have Health Care Power of Pallet Assembler? Yes, in chart and reviewed as current [...] Power of Attor ephraim? No Care Teams Retail Support Manager Relationship Specialty Start Date End Date Theresa Johnson MD [address] [place] [address] PCP - General Family Medicine 12/19/23 documented as of this encounter
--- OUTSIDE RECORDS SUMMARY | 2024-08-05 04:08 | External Medical Summary | Summary of Care ---
Author Name Unknown Organization [facility] Address [address] [place] [address] Phone [phone] Care Team Providers Care Sales Management Trainee Name Role Phone Theresa Johnson MD Primary Care Provider [phone] Reason for Visit * Reason Comments Dosage Adjustment Via Phone (anticoag Cl inic) Encounter Details Date Type Department Care Team (Late st Contact Info) Description 07/05/2024 7:15 AM EST Pharmacy Neurology [address] [place], [place] [address] [place] [address] Nathan, Pharmacist Neurology [address] [place] [address] Myasthenia gravis (HCC)* Allergies Active [...] Propionate 50 MCG/ACT Nasal Suspension Administer 1 [place] into nostril in the morning. Active FIBER [...] morning. 60 Tablet 4 5 Active pyRIDostigmine [place] 60 MG Oral Tablet (Mestinon) Take 1 Tablet by mouth in the morning and 1 Tablet at noon and 1 Tablet before bedtime. 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 Rescheduled MG-ADL call for 07/27/24. Anette Tanner [facility] Clinical Pharmacist, Neurology Medication Therapy Disease Management 07/04/2024 3:06 PM documented in this encounter Plan of Treatment Upcoming Encounters Date Type Department Care Team (Late st Contact Info) Description 07/06/2024 9:30 AM EST Hem/Onc Treatment Hematology/Oncology [address], [address] [phone] Krista, Chair 10 Hem On[address] [place] [address] 07/10/2024 10:00 AM EST Office Visit Family Practice [facility] [address] [place] [address] Theresa Johnson MD [address] [facility] [place] [address] 07/13/2024 9:30 AM EST Hem/Onc Treatment Hematology/Oncology Treatment, [address], [place] [address] Krista, Chair 5 Hem Onc [address] [place] [address] 07/20/2024 9:30 AM EST Hem/Onc Treatment Hematology/Oncology Treatment, [address], [place] [address] Krista, Chair 9 Hem Onc [facility] [address] [place], [place] [address] [place] [address] 07/25/2024 11:00 AM EST Office Visit Neurology Nathan [address] [place] [address] Maksim Wright MD [address] [place], [place] [address] 07/27/2024 9:00 AM EST Telemedicine Neurology [address] [place] [address] Nathan, Pharmacist Neurology [address] [place], [place] [address] 09/13/2024 11:20 AM EDT Office Visit Family Practice [facility] [address] [place] [address] Theresa Johnson MD [address] [facility] [place] [address] 12/11/2024 11:15 AM EDT Office Visit Urology, [facility] 132 [facility] [place] [address] Ramesh Phan MD [address] [place] [address] 05/30/2025 11:15 AM EST Office Visit Dermatology [facility] [address] [place] [address] Marshall Henson MD [address] [facility] [place], [place] [address] Scheduled Procedures Name Priority Associated Diagnoses Date/Ti [...] this encounter Medical Devices Implanted Type Area Wrapper Selector Device Identifier Shelf Expiration Date Model / Serial / Lot Port Powerflow 9.6fr - [id number] Implanted:Qty : 1 on 03/15/2023 at [facility] CR BARD : PERIPHERAL VASCULAR [id number] 10/21/2023 [id number] / / [id number] Power Port 8fr Sngl Lumen Plas - [id number] Implanted:Qty : 1 on 03/15/2023 at [facility] CR BARD : PERIPHERAL VASCULAR [id number] 03/22/2024 [id number] / / [id number] Lens Li61ao 13.00mm 18.00 - [id number] - [id number] Implanted:Qty : 1 on 02/02/2024 by Andre Swartz MD at [facility] Right: Eye BAUSCH & LOMB 08/20/2028 [id number] / [id number] / [id number] Lens Li61ao 13.00mm 17.50 - [id number] - [id number] Implanted:Qty : 1 on 02/16/2024 by Andre Swartz MD at OR [facility] Left: Eye BAUSCH & LOMB 07/20/2028 [id number] / [id number] / [id number] documented as of this encounter Visit Diagnoses Diagnosis Myasthenia gravis (HCC)- Primary Myasthenia gravis without exacerbation documented in this encounter Advance Directives Documents on File Type Date Recorded Patient Surveying Technician Expl anation Power of Instrument Maker Apprentice 06/20/2018 POWER OF A TTORNEY POA: [...] the patient have Health Care Power of Instrument Maker Apprentice? Yes, in chart and reviewed as current [...] of Attor ephraim? No Care Teams Sales Management Trainee Relationship Specialty Start Date End Date Theresa Johnson MD [address] [place] [address], [place] [address] PCP - General Family Medicine 12/19/23 documented as of this encounter
--- OUTSIDE RECORDS SUMMARY | 2024-08-05 04:08 | External Medical Summary | Summary of Care ---
Author Name Unknown Organization [facility] Address [address] [place] [address] Phone [phone] Care Team Providers Care Boring Machine Operator Vertical Name Role Phone Theresa Johnson MD Primary Care Provider [phone] Encounter Details Date Type Department Care Team (Late st Contact Info) Description 07/03/2024 Orders Only Neurology [address] [place] [address] [place] [address] Maksim Wright MD [address] [place] [address] Allergies Active Allergy Reactions Criticality Noted Date Comments Lactose Diarrhea 06/25/2024 Only milk bothers patient. He eats ice cream, yogurt and cheese. Benzalkonium Chloride 02/21/2015 Merthiolate "the orange kind" Caused a rash documented as of this encounter (statuses as of 07/04/2024) Medications ALEVE 220 MG PO CAPS Take 1 Capsule by mouth daily as needed. Active Fluticasone Propionate 50 MCG/ACT Nasal Suspension Administer 1 [place] into nostril in the morning. Active FIBER [...] morning. 60 Tablet 4 5 Active pyRIDostigmine [place] 60 MG Oral Tablet (Mestinon) Take 1 Tablet by mouth in the morning and 1 Tablet at noon and 1 Tablet before bedtime. 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 file Not [...] Marguerite Toledo RN documented in this encounter Plan of Treatment Upcoming Encounters Date Type Department Care Team (Late st Contact Info) Description 07/04/2024 8:30 AM EST Office Visit Apheresis Clinic, [place] [address] [place] [phone] Provider, Apheresis [facility] [address] [place], [place] [phone] 07/04/2024 12:00 PM EST Appointment Interventional Radiology [facility], [facility] 1st Floor [address] [place] [address] 07/04/2024 2:00 PM EST Scheduled Telephone Neurology [address] [place] [address] Neuromuscular, Phone Nurse Neuro [address] [place] [address] 07/05/2024 7:15 AM EST Pharmacy Neurology [address] [place] [address] Nathan, Pharmacist Neurology [address] [place], [place] [phone] 07/06/2024 9:30 AM EST Hem/Onc Treatment Hematology/Oncology Treatment, [place] 200 [place] [address] Park, Chair 10 Hem Onc [facility] [address] [place], [place] [address] 07/10/2024 10:00 AM EST Office Visit Family Practice [facility] [place] [address] [place] [address] Theresa Johnson MD [address] [place] [address] 07/13/2024 9:30 AM EST Hem/Onc Treatment Hematology/Oncology Treatment, [place] 200 [place] [address] Park, Chair 5 Hem Onc [place] [address] [place] [address] 07/20/2024 9:00 AM EST Telemedicine Neurology [address] [place] [address] Nathan, Pharmacist Neurology [address] [place], [place] [phone] 07/25/2024 11:00 AM EST Office Visit Neurology Nathan [address] [place] [address] Maksim Wright MD [address] [place] [address] 09/13/2024 11:20 AM EDT Office Visit Family Practice [facility] [address] [place] [address] Theresa Johnson MD 200 [facility] [place] [place] [address] 12/11/2024 11:15 AM EDT Office Visit Urology, [facility] 132 [facility] [place] [address] Ramesh Phan MD [address] [place] [id number] 05/30/2025 11:15 AM EST Office Visit Dermatology [facility] [address] [place] [address] Marshall Henson MD 200 [facility] [place] [address] Scheduled Procedures Name Priority Associated Diagnoses Date/Ti me COLONOSCOPY FLEXIBLE PROXIMAL DIAGNOSTIC Recall History of colon polyps Health Maintenance Due Date Last Done Comments Cologuard 01/12/1997 Fecal Occult Blood Test 01/12/1997 Sigmoidoscopy 01/12/1997 Adult Wellness Visit 11/28/2019 11/27/2018 COVID-19 Vaccine ( season) 2024 02/23/2024, 07/13/2020, 06/13/2020 HbA1c 05/31/2024 05/31/2023, 12/05/2013 Colonoscopy 05/26/2025 05/26/2020, 08/2020, 04/10/2015, Additional history [...] this encounter Medical Devices Implanted Type Area Hypoid Gear Generator Device Identifier Shelf Expiration Date Model / Serial / Lot Port Powerflow 9.6fr - [id number] Implanted:Qty : 1 on 03/15/2023 at [facility] CR BARD : PERIPHERAL VASCULAR [id number] 10/21/2023 [id number] / / [id number] Power Port 8fr Sngl Lumen Plas - [id number] Implanted:Qty : 1 on 03/15/2023 at [facility] CR BARD : PERIPHERAL VASCULAR [id number] 03/22/2024 [id number] / / [id number] Lens Li61ao 13.00mm 18.00 - [id number] - [id number] Implanted:Qty : 1 on 02/02/2024 by Andre Swartz MD at [facility] Right: Eye BAUSCH & LOMB 08/20/2028 [id number] / [id number] / [id number] Lens Li61ao 13.00mm 17.50 - [id number] - [id number] Implanted:Qty : 1 on 02/16/2024 by Andre Swartz MD at [facility] Left: Eye BAUSCH & LOMB 07/20/2028 [id number] / [id number] / [id number] documented as of this encounter Advance Directives Documents on File Type Date Recorded Patient Applications Support Analyst Expl anation Power of Phlebotomist Supervisor/Instructor 06/20/2018 POWER OF A TTORNEY POA: EDEL- [...] the patient have Health Care Power of Phlebotomist Supervisor/Instructor? Yes, in chart and reviewed as current [...] Power of Attor ephraim? No Care Teams Boring Machine Operator Vertical Relationship Specialty Start Date End Date Theresa Johnson MD [address] [place] [address] PCP - General Family Medicine 12/19/23 documented as of this encounter
--- OUTSIDE RECORDS SUMMARY | 2024-08-05 04:08 | External Medical Summary | Summary of Care ---
Author Name Unknown Organization [facility] Address [address] [place] [address] Phone [phone] Care Team Providers Care Negative Restorer Name Role Phone Theresa Johnson MD Primary Care Provider Encounter Details Date Type Department Care Team (Late st Contact Info) Description 07/05/2024 5:00 PM EST Scheduled Telephone Care Coordination and Integration [address] [place] [address] Ana Alfonso, Community Health Trailer Truck Driver [address], [place] [id number] Allergies Active Allergy Reactions Criticality Noted Date [...] Propionate 50 MCG/ACT Nasal Suspension Administer 1 [place] into nostril in the morning. Active FIBER [...] morning. 60 Tablet 4 5 Active pyRIDostigmine [place] 60 MG Oral Tablet (Mestinon) Take 1 Tablet by mouth in the morning and 1 Tablet at noon and 1 Tablet before bedtime. 90 Tablet 4 5 Active pyRIDostigmine [place] 60 MG Oral Tablet (Mestinon) Take 1 [...] No 06/29/2024 Does the household have a [facility] source of income? 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 Patient answered and was able to return home yesterday, Tuesday, patients sister was able to takehim home from the hospital so it all worked out fine. Patient is trying not to use his cane and or walker to get around. He is walking around slowly but fine and is a little weak in the legs just dueto not doing a lot of moving around the past two weeks but he is getting around okay he feels. Patient was able to get a shower on his own today and is able to care for himself at this time and did not feel that he needed any help in the home. He was able to place a food order online and go pick itup earlier today and that went fine. No pain. Patient is going to change the dressing he has one from incision of port tomorrow. Patient said he had not "worked up the nerve" to remove it yet. This CHW instructed on s/s of infection and to wound and if concerns to reach out to CM Babita. This CHW confirmed CM's contact info and encouraged patient to reach out with any concerns or worries. Ana Alfonso- Community Health Worker 1 Support Services/[facility] [email or web address] documented in this encounter Plan of Treatment Upcoming Encounters Date Type Department Care Team (Late st Contact Info) Description 07/06/2024 9:30 AM EST Hem/Onc Treatment Hematology/Oncology Treatment, [place] [address] [place] [address] Krista, Chair 10 Hem Onc Scenery [address] [place] [address] 07/10/2024 10:00 AM EST Office Visit [facility] [address] [place] [address] Theresa Johnson MD [address] [place] [address] 07/13/2024 9:30 AM EST Hem/Onc Treatment Hematology/Oncology Treatment, [place] [address] [place] [phone] Krista, Chair 5 Hem Onc Scenery [address] [place] [address] 07/20/2024 9:30 AM EST Hem/Onc Treatment Hematology/Oncology Treatment, [place] [address] [place] [phone] Krista, Chair 9 Hem [facility]c [facility] [address] [place], [place] [address] 07/25/2024 11:00 AM EST Office Visit Neurology [address] [place] [phone] Maksim Wright MD [address] [place] [address] 07/27/2024 9:00 AM EST Telemedicine Neurology [address] [place] [phone] Nathan Pharmacist Neurology [address] [place] [address] 09/13/2024 11:20 AM EDT Office Visit [facility] [address] [place] [address] Theresa Johnson MD [address] [place] [address] 12/11/2024 11:15 AM EDT Office Visit Urology, [facility] 132 [facility] [place] [address] Ramesh Phan MD [address] [place] [address] 05/30/2025 11:15 AM EST Office Visit Dermatology [facility] 200 [facility] [place] [address] Marshall Henson MD 200 [facility] [place] [address] Scheduled Procedures Name Priority Associated Diagnoses Date/Ti [...] this encounter Medical Devices Implanted Type Area Control Systems Technician Device Identifier Shelf Expiration Date Model / Serial / Lot Port Powerflow 9.6fr - [id number] Implanted:Qty : 1 on 03/15/2023 at [facility] CR BARD : PERIPHERAL VASCULAR [id number] 10/21/2023 [id number] / / [id number] Power Port 8fr Sngl Lumen Plas - [id number] Implanted:Qty : 1 on 03/15/2023 at [facility] CR BARD : PERIPHERAL VASCULAR [id number] 03/22/2024 [id number] / / [id number] Lens Li61ao 13.00mm 18.00 - [id number] - [id number] Implanted:Qty : 1 on 02/02/2024 by Andre Swartz MD at [facility] Right: Eye [employer] LOMB 08/20/2028 [id number] / [id number] / [id number] Lens Li61ao 13.00mm 17.50 - [id number] - [id number] Implanted:Qty : 1 on 02/16/2024 by Andre Swartz MD at [facility] Left: Eye BAUSCH & LOMB 07/20/2028 [id number] / [id number] / [id number] documented as of this encounter Advance Directives Documents on File Type Date Recorded Patient Reactor Operator Expl anation Power of Transfer Clerk 06/20/2018 POWER OF A TTORNEY POA: [...] the patient have Health Care Power of Transfer Clerk? Yes, in chart and reviewed as [...] Power of Attor ephraim? No Care Teams Negative Restorer Relationship Specialty Start Date End Date Theresa Johnson MD [address] [place] [address] PCP - General Family Medicine 12/19/23 documented as of this encounter
--- OUTSIDE RECORDS SUMMARY | 2024-08-05 04:08 | External Medical Summary | Summary of Care ---
Author Name Unknown Organization [facility] Address [address] [place] [address] Phone [phone] Care Team Providers Care Hospital Aides And Assistants Teacher Name Role Phone Theresa Johnson MD Primary Care Provider [phone] Reason for Visit * Reason Onset Date Comments Appointment 07/04/2024 Encounter Details Date Type Department Care Team (Late st Contact Info) Description 07/04/2024 Telephone Hematology/Oncology Treatment, [place] [address] [place] [address] Maksim Wright MD [address] [place] [address] Appointment Allergies Active Allergy Reactions [...] Propionate 50 MCG/ACT Nasal Suspension Administer 1 [place] into nostril in the morning. Active FIBER [...] morning. 60 Tablet 4 5 Active pyRIDostigmine [place] 60 MG Oral Tablet (Mestinon) Take 1 Tablet by mouth in the morning and 1 Tablet at noon and 1 Tablet before bedtime. 90 Tablet 4 5 Active pyRIDostigmine [place] 60 MG Oral Tablet (Mestinon) Take 1 [...] ages 0-17 years) Not on file 06/29/2024 Are you homeless or worried that [...] Telephone Encounter - Trevor Fernandez OSA - 07/04/2024 3:26 PM EST Scheduled and aware * Telephone Encounter - Paola Caraballo RN - 07/04/2024 2:48 PM EST Patient is scheduled for vyvgart #2/4 on 07/06/24 #3/4 on 07/13/24 Patient will need additional vyvgart infusion scheduled 07/20/24. Scheduling: please follow up to schedule this- thanks! documented in this encounter Plan of Treatment Upcoming Encounters Date Type Department Care Team (Late st Contact Info) Description 07/05/2024 7:15 AM EST Pharmacy Neurology [address] [place] [phone] Nathan, Pharmacist Neurology [address] [place] [address] [place] [id number] Myasthenia gravis (HCC)* 07/06/2024 9:30 AM EST Hem/Onc Treatment Hematology/Oncolog y Treatment, [place] [address] [place] [phone] Krista, Chair 10 Hem Onc [facility] 200 [facility] [place] [address] 07/10/2024 10:00 AM EST Office Visit Family Practice [facility] Krista [place] 200 [facility] [place] [address] Theresa Johnson MD [address] [place] [address] 07/13/2024 9:30 AM EST Hem/Onc Treatment Hematology/Oncolog y Treatment, [place] 200 [place] [address] Krista, Chair 5 Hem Onc [facility] [address] [place] [id number] 07/20/2024 9:00 AM EST Telemedicine Neurology [address] [place] [phone] Nathan, Pharmacist Neurology [address] [place], [place] [phone] 07/20/2024 9:30 AM EST Hem/Onc Treatment Hematology/Oncolog y Treatment, [place] 200 [place] [address] Krista, Chair 9 Hem Onc [facility] [address] [place] [address] 07/25/2024 11:00 AM EST Office Visit Neurology Nathan [address] [place] [phone] Maksim Wright MD [address] [place] [address] 09/13/2024 11:20 AM EDT Office Visit Family Practice [facility] [address] [place], [place] [address] Theresa Johnson MD [address] [place], [place] [address] 12/11/2024 11:15 AM EDT Office Visit Urology, [facility] 132 [facility] [place] [address] Ramesh Phan MD [address] [place] [address] 05/30/2025 11:15 AM EST Office Visit Dermatology [facility] [address] [place] [address] Marshall Henson MD 200 [facility], [place] [address] Scheduled Procedures Name Priority Associated Diagnoses Date/Ti [...] this encounter Medical Devices Implanted Type Area Marketing Database Analyst Device Identifier Shelf Expiration Date Model / Serial / Lot Port Powerflow 9.6fr - [id number] Implanted:Qty : [facility] : PER[facility]HERAL VASCULAR [id number] 10/21/2023 [id number] / / [id number] Power Port 8fr Sngl Lumen Plas - [id number] Implanted:Qty : 1 on 03/15/[address] [facility] CR BARD : PERIPHERAL VASCULAR [id number] 03/22/2024 [id number] / / [id number] Lens Li61ao 13.00mm 18.00 - [id number] - [id number] Implanted:Qty : 1 on 02/02/2024 by Andre Swartz MD at [facility] Right: Eye [employer]USCH [employer] LOMB 08/20/2028 [id number] / [id number] / [id number] Lens Li61ao 13.00mm 17.50 - [id number] - [id number] Implanted:Qty : 1 on 02/16/2024 by Andre Swartz MD at [facility] Left: Eye BAUSCH & LOMB 07/20/2028 [id number] / [id number] / [id number] documented as of this encounter Advance Directives Documents on File Type Date Recorded Patient Contract Lead Expl anation Power of Store Gift Wrap Associate 06/20/2018 POWER OF A TTORNEY POA: EDEL- [...] the patient have Health Care Power of Store Gift Wrap Associate? Yes, in chart and reviewed as current [...] Power of Attor ephraim? No Care Teams Hospital Aides And Assistants Teacher Relationship Specialty Start Date End Date Theresa Johnson MD [address] [place] [address] PCP - General Family Medicine 12/19/23 documented as of this encounter
--- OUTSIDE RECORDS SUMMARY | 2024-08-05 04:08 | External Medical Summary | Summary of Care ---
Author Name Unknown Organization [facility] Address [address] [place] [address] Phone [phone] Care Team Providers Care Box Spring Frame Builder Name Role Phone Theresa Johnson MD Primary Care Provider [phone] Reason for Referral * Precert (Within 10 days (routine)) - Authorized Specialty Diagnoses / Procedures Referred By Contac t Referred To Contact Radiology Diagnoses Myasthenia gravis with exacerbation, adult form (HCC) Procedures IR APHERESIS ACCESS Thee Ferrari MD [address] [place] [address] Phone: tel: fax: Referral ID Status Reason Start Date Expiration Date V isits Requested Visits Authorized [id number] Authorized 07/02/2024 999 999 Reason for Visit * Reason Comments Treatment plasmapheresis Encounter Details Date Type Department Care Team (Late st Contact Info) Description 07/02/2024 9:30 AM EST Office Visit Apheresis Clinic, [place] [address] [place] [address] Provider, Apheresis [facility] [place], [place] [id number] Myasthenia gravis with exacerbation, adult form (HCC)* [...] Propionate 50 MCG/ACT Nasal Suspension Administer 1 [place] into nostril in the morning. Active FIBER [...] morning. 60 Tablet 4 5 Active pyRIDostigmine [place] 60 MG Oral Tablet (Mestinon) Take 1 Tablet by mouth in the morning and 1 Tablet at noon and 1 Tablet before bedtime. 90 Tablet 4 5 Active pyRIDostigmine [place] 60 MG Oral Tablet (Mestinon) Take 1 [...] No 06/29/2024 Does the household have a [facility] source [facility] income? 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 Current treatment schedule: #4 of 5 planned Filed Vitals: Filed Vitals: 07/02/24 0933 07/02/24 1120 BP: 152/64 142/68 Pulse: 66 76 Temp: 35.8 C (96.4 F) Limited Physical [...] in this encounter Nursing Notes * Jessi Cheng, RN - 07/02/2024 9:30 AM EST [facility] Nursing Care Plan ID is not set. [...] Humidity of 20% - 60% recorded at 0800, within normal limits, discussed with APHERESIS PROVIDER. [...] [place] [phone] Nathan, Pharmacist Neurology [address] [place] [address] [place] [id number] Myasthenia gravis (HCC)* 07/06/2024 9:30 AM EST Hem/Onc Treatment Hematology/Oncolog y Treatment, [place] [address] [place] [address] Park, Chair 10 Hem Onc Scenery [address] [place] [address] 07/10/2024 10:00 AM EST Office Visit [facility] [address] [place] [address] Theresa Johnson MD [address] [place] [address] 07/13/2024 9:30 AM EST Hem/Onc Treatment Hematology/Oncolog y Treatment, [place] 200 [place] [phone] Park, Chair 5 Hem Onc Scenery [address] [place] [address] 07/20/2024 9:00 AM EST Telemedicine Neurology [address] [place] [phone] Nathan Pharmacist Neurology [address] [place] [facility] [place] [address] 07/20/2024 9:30 AM EST Hem/Onc Treatment Hematology/Oncolog y Treatment, [place] 200 [place] [address] Park, Chair 9 Hem Onc Scenery [address] [place] [address] 07/25/2024 11:00 AM EST Office Visit Neurology Nathan [address] [place] [phone] Maksim Wright MD [address] [place] [address] 09/13/2024 11:20 AM EDT Office Visit [facility] [address] [place] [address] Theresa Johnson MD [address] [place] [address] 12/11/2024 11:15 AM EDT Office Visit Urology, [facility] [address] [place] [address] Ramesh Phan MD [address] [place] [address] 05/30/2025 11:15 AM EST Office Visit Dermatology [facility] 200 [facility] [place] [address] Marshall Henson MD 200 [facility] [place] [address] Pending Results Name Type Priority Associated Diagnoses Date /Time IR APHERESIS ACCESS Medical Imaging Routine Myasthenia gravis with exacerbation, adult form (HCC) 07/04/2024 11:25 AM EST Scheduled Procedures Name Priority Associated [...] this encounter Medical Devices Implanted Type Area Animal Care Giver Device Identifier Shelf Expiration Date Model / Serial / Lot Port Powerflow 9.6fr - [id number] Implanted:Qty : 1 on 03/15/2023 at [facility] CR BARD : PERIPHERAL VASCULAR [id number] 10/21/2023 [id number] / / [id number] Power Port 8fr Sngl Lumen Plas - [id number] Implanted:Qty : 1 on 03/15/2023 at [facility] CR BARD : PERIPHERAL VASCULAR [id number] 03/22/2024 [id number] / / [id number] Lens Li61ao 13.00mm 18.00 - [id number] - [id number] Implanted:Qty : 1 on 02/02/2024 by Andre Swartz MD at [facility] Right: Eye BAUSCH [employer] LOMB 08/20/2028 [id number] / [id number] / [id number] Lens Li61ao 13.00mm 17.50 - [id number] - [id number] Implanted:Qty : 1 on 02/16/2024 by Andre Swartz MD at [facility] [address] [facility] Left: Eye BAUSCH & LOMB 07/20/2028 [id number] / [id number] / [id number] documented as of this encounter Procedures Procedure Name Priority Date/Time Associated Diagnosis Comments IR APHERESIS ACCESS Routine 07/04/2024 11:25 AM EST Myasthenia gravis with exacerbation, adult form (HCC) Procedure Note - Steve Sharp MD / Rafa Dubon PA-C - 07/04/2024 11:25 AM ESTThis note is in progress. PROCEDURE: Tunneled hemodialysis catheter removal. INDICATION: Done with apheresis treatment EMPLOYMENT INSTRUCTIONAL ASSOCIATE: Rafa Dubon PA-C SUPERVISING PHYSICIAN: Dr. Lila DOE RESIDENT (OPERATING PHYSICIAN): None. SUPPORTING PROVIDER (GOLD LAYER): None. CONSENT: After a detailed discussion of the procedure, risks, benefits andalternative treatment options, informed consent was obtained. TIME OUT: A time out procedure was performed. The patient's identificationwas verified. Informed consent with agreement of procedure, site andposition was obtained. All necessary equipment was available prior toprocedure. CONTRAST: No contrast was administered. COMPLICATIONS: None. ANESTHESIA: None SEDATION TIME: N/A MEDICATIONS: See MAR PROCEDURE DESCRIPTION: The right neck, chest and catheter were prepped.The area of the tunnel was anesthetized utilizing local anesthetic. Thetunneled catheter cuff was dissected free using blunt dissection. Thecatheter was removed and inspected and found to be removed in itsentirety. Hemostasis was achieved with manual pressure and the site wasthen dressed. The procedure was performed under the personal supervision of Dr. Martel was present for the chi and critical portions of the procedure andimmediately available for the entire procedure. FINDINGS: No imaging was obtained. IMPRESSION IMPRESSION: Successful tunneled catheter removal. documented in this encounter Visit Diagnoses Diagnosis Myasthenia gravis with exacerbation, adult form (HCC)- Primary Myasthenia gravis with exacerbation Myasthenia gravis (HCC)- Primary Myasthenia gravis without exacerbation documented in this encounter Administered Medications Inactive Administered Medications - up to 3 most recent administrations Medication Order MAR Action Action Date Dose Rate Site albumin (human) (Plasbumin-5) 5 % infusion Extracorporeal, ONCE, 1 dose, On Tue07/02/24 at 1000, For Apheresis ONLY At end of infusion document total amount infused. Please scan whiting machine operator "square" 2D barcode to record Lot/ Expiration, RoutineIndications:Myasthenia gravis with exacerbation, adult form (HCC) New Bag 07/02/2024 9:31 AM EST 2,449 mL anticoagulant acid citrate dextrose (Acd-A) apheresis solution Extracorporeal, CONTINUOUS, Starting on Tue07/02/24 at 1000, Until Tue07/02/24 at 1700, For Apheresis ONLY For anticoagulation of extracorporeal circuit per protocol. At end of infusion document total amount infused.Indications:Myasthenia gravis with exacerbation, adult form (HCC) New Bag 07/02/2024 9:32 AM EST 129 mL NSS NG or OSTOMY REPLACEMENT Intravenous, For Apheresis ONLY use volume needed for pre and post flush and priming, CONTINUOUS, Starting on Tue07/02/24 at 1000, Until Tue07/02/24 at 1700Indications:Myasthenia gravis with exacerbation, adult form (HCC) New Bag 07/02/2024 9:32 AM EST sodium citrate 4% (Anticoagulant Sodium Citrate) inj 6 mL 6 mL, IV Lock, ONCE, On Tue07/02/24 at 1000, For 1 dose, For Apheresis ONLY [facility] ONLY - TUBE TO 401 3 mL each port. For locking catheterIndications:Myasthenia gravis with exacerbation, adult form (HCC) Given 07/02/2024 11:25 AM EST 6 mL documented in this encounter Advance Directives Documents on File Type Date Recorded Patient Disability Aide Expl anation Power of Bagman/Woman 06/20/2018 POWER OF A TTORNEY POA: EDEL- [...] the patient have Health Care Power of Bagman/Woman? Yes, in chart and reviewed as current [...] Power of Attor ephraim? No Care Teams Box Spring Frame Builder Relationship Specialty Start Date End Date Theresa Johnson MD 200 [facility] [place] [address] PCP - General Family Medicine 12/19/23 documented as of this encounter
--- OUTSIDE RECORDS SUMMARY | 2024-08-05 04:08 | External Medical Summary | Summary of Care ---
Author Name Unknown Organization [facility] Address [address] [place] [address] Phone [phone] Care Team Providers Care Clinical Laboratory Science Professor Name Role Phone Theresa Johnson MD Primary Care Provider [phone] Reason for Visit * Reason Onset Date Comments Appointment 07/04/2024 Encounter Details Date Type Department Care Team (Late st Contact Info) Description 07/04/2024 Telephone Hematology/Oncology Treatment, [place] [address] [place] [address] Maksim Wright MD [address] [place] [address] Appointment Allergies Active Allergy Reactions [...] Propionate 50 MCG/ACT Nasal Suspension Administer 1 [place] into nostril in the morning. Active FIBER [...] morning. 60 Tablet 4 5 Active pyRIDostigmine [place] 60 MG Oral Tablet (Mestinon) Take 1 Tablet by mouth in the morning and 1 Tablet at noon and 1 Tablet before bedtime. 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 Not on file [...] [place] [phone] Nathan, Pharmacist Neurology [address] [place] [address] [place] [address] Myasthenia gravis (HCC)* 07/06/2024 9:30 AM EST Hem/Onc Treatment Hematology/Oncolog y Treatment, [place] [address] [place] [address] Krista, Chair 10 Hem Onc [facility] 200 [facility] [place] [address] 07/10/2024 10:00 AM EST Office Visit Family Practice [facility] Krista [place] 200 [facility] [place] [address] Theresa Johnson MD [address] [place] [address] 07/13/2024 9:30 AM EST Hem/Onc Treatment Hematology/Oncolog y Treatment, [place] 200 [place] [address] Krista, Chair 5 Hem Onc [facility] [address] [place] [id number] 07/20/2024 9:00 AM EST Telemedicine Neurology [address] [place] [address] Nathan, Pharmacist Neurology [address] [place], [place] [id number] 07/20/2024 9:30 AM EST Hem/Onc Treatment Hematology/Oncolog y Treatment, [place] 200 [place] [address] Krista, Chair 9 Hem Onc [facility] [address] [place] [address] 07/25/2024 11:00 AM EST Office Visit Neurology Nathan [address] [place] [address] Maksim Wright MD [address] [place] [address] 09/13/2024 11:20 AM EDT Office Visit Family Practice [facility] [address] [place], [place] [address] Theresa Johnson MD [address] [place], [place] [address] 12/11/2024 11:15 AM EDT Office Visit Urology, [facility] 132 [facility] [place] [address] Ramesh Phan MD [address] [place] [address] 05/30/2025 11:15 AM EST Office Visit Dermatology [facility] [address] [place] [address] Marshall Henson MD 200 [facility], [place] [address] Scheduled Procedures Name Priority Associated Diagnoses Date/Ti [...] this encounter Medical Devices Implanted Type Area Relationship Executive Device Identifier Shelf Expiration Date Model / Serial / Lot Port Powerflow 9.6fr - [id number] Implanted:Qty : 1 on [facility] : PERIPHERAL VASCULAR [id number] 10/21/2023 [id number] / / [id number] Power Port 8fr Sngl Lumen Plas - [id number] Implanted:Qty : 1 on 03/15/2023 at [facility] CR BARD : PERIPHERAL VASCULAR [id number] 03/22/2024 [id number] / / [id number] Lens Li61ao 13.00mm 18.00 - [id number] - [id number] Implanted:Qty : 1 on 02/02/2024 by Andre Swartz MD at OR [facility] Right: Eye BAUSCH & LOMB 08/20/2028 [id number] / [id number] / [id number] Lens Li61ao 13.00mm 17.50 - [id number] - [id number] Implanted:Qty : 1 on 02/16/2024 by Andre Swartz MD at OR [facility] Left: Eye BAUSCH & LOMB 07/20/2028 [id number] / [id number] / [id number] documented as of this encounter Advance Directives Documents on File Type Date Recorded Patient Typesetting Supervisor Expl anation Power of Staffing Coordinator 06/20/2018 POWER OF A TTORNEY POA: [...] the patient have Health Care Power of Staffing Coordinator? Yes, in chart and reviewed as current [...] of Attor ephraim? No Care Teams Clinical Laboratory Science Professor Relationship Specialty Start Date End Date Theresa Johnson MD [address] [place] [address] PCP - General Family Medicine 12/19/23 documented as of this encounter
--- OUTSIDE RECORDS SUMMARY | 2024-08-05 04:08 | External Medical Summary | Summary of Care ---
Author Name Unknown Organization [facility] Address [address] [place] [address] Phone [phone] Care Team Providers Care Lawn Care Technician Name Role Phone Theresa Johnson MD Primary Care Provider Reason for Visit * Episode Based Medications (Routine) - Authorized Specialty Diagnoses / Procedures Referred By Contac t Referred To Contact Diagnoses Myasthenia gravis with exacerbation, adult form (HCC) Procedures MD INJECTION, EFGARTIGIMOD EVANGELINA-FCAB, 2MG Maksim Wright MD [address] [place] [address] Phone: tel: fax: Hematology/Oncology Treatment, [address] [address] Phone: tel: fax: Referral ID Status Reason Start Date Expiration Date V isits Requested Visits Authorized [id number] Authorized 11/04/2023 11/03/2024 99 99 Encounter Details Date Type Department Care Team (Latest Contact Info) Description 05/28/2024 9:30 AM EST Hem/Onc Treatment Hematology/Oncology Treatment, [address] [place] [address] Krista, Chair 10 Hem [place] [place] [address] Myasthenia gravis (HCC)* Allergies Active Allergy Reactions Criticality Noted Date Comments Benzalkonium Chloride 02/21/2015 Merthiolate "the orange kind" Caused a rash documented as of this encounter (statuses as of 07/04/2024) Medications ALEVE 220 MG PO CAPS Take 1 Capsule by mouth daily as needed. Active Fluticasone Propionate 50 MCG/ACT Nasal Suspension Administer 1 [place] into nostril in the morning. Active FIBER [...] 3 days. 3 Patch 03/19/20 24 Active Ketoconazole 2 % External CreamIndication s:Seborrheic dermatitis Apply to dry skin on forehead, nose once daily 30 g 4 05/04/20 24 Active Mirtazapine 15 MG Oral Tablet (Remeron)Indica tions:Adjustmen t insomnia Take 1 Tablet by mouth at bedtime. 90 Tablet 1 05/14/20 24 Active SUMAtriptan Succinate 100 MG Oral TabletIndicatio ns:Migraine without status migrainosus, not intractable, unspecified migraine type TAKE 1 TABLET AT ONSET OF MIGRAINE. MAY REPEAT IN 2 HOURS BUT NOT MORE. 10 Tab 3 02/06/20 21 2024 Discontinued Triamcinolone Acetonide 0.5 % External CreamIndication s:Dermatitis APPLY TO AFFECTED AREAS TWICE DAILY. 60 g 1 08/22/19 22 2024 Discontinued predniSONE 5 MG Oral Tablet (Deltasone) Take 10 mg alternating with 5 mg every other day 45 Tablet 5 01/25/20 24 2024 Discontinued(M edication/Dose Changed) Amoxicillin-Pot Clavulanate 875-125 MG Oral Tablet (Augmentin)Ale cations:Acute non-recurrent frontal sinusitis Take 1 Tablet by mouth in the morning and 1 Tablet before bedtime. Do all this for 10 days. 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 on file Not on file [...] 8:30 AM EST Office Visit Apheresis Clinic, [place] [address] [place] [address] Provider, Apheresis [address] [place] [id number] 07/04/2024 12:00 PM EST Appointment Interventional Radiology [facility] 1st Floor [address] [place] [address] 07/04/2024 2:00 PM EST Scheduled Telephone Neurology Nathan [address] [place] [address] Neuromuscular, Phone Nurse Neuro [address] [place] [address] 07/05/2024 7:15 AM EST Pharmacy Neurology Nathan [address] [place] [address] Nathan, Pharmacist Neurology [address] [place] [address] 07/06/2024 9:30 AM EST Hem/Onc Treatment Hematology/Oncology Treatment, [place] [address] [place] [address] Krista, Chair 10 Hem Onc [address] [facility] [id number] 07/10/2024 10:00 AM EST Office Visit [facility] [address] [place] [address] Theresa Johnson MD [address] [place] [address] 07/13/2024 9:30 AM EST Hem/Onc Treatment Hematology/Oncology Treatment, [place] 200 [facility] [place], [place] [address] Krista, Chair 5 Hem Onc [facility] [address] [place] [address] 07/20/2024 9:00 AM EST Telemedicine Neurology Nathan [address] [place] [address] Nathan, Pharmacist Neurology [address] [place] [address] 07/25/2024 11:00 AM EST Office Visit Neurology Nathan Lawson Dr [address] [place] [address] Maksim Wright MD [address] [place], [place] [phone] 09/13/2024 11:20 AM EDT Office Visit [facility] [address] [place] [address] Theresa Johnson MD [address] [place] [address] 12/11/2024 11:15 AM EDT Office Visit Urology, [facility] 132 [facility] [place] [address] Ramesh Phan MD [address] [place] [address] 05/30/2025 11:15 AM EST Office Visit Dermatology [facility] [address] [place] [address] Marshall Henson MD 200 [place] [address] Scheduled Procedures Name Priority Associated Diagnoses Date/Ti [...] this encounter Medical Devices Implanted Type Area Machine Heel Builder Device Identifier Shelf Expiration Date Model / Serial / Lot Port Powerflow 9.6fr - [id number] Implanted:Qty : 1 on 03/15/2023 at [employer] [facility] CR BARD : PERIPHERAL VASCULAR [id number] 10/21/2023 [id number] / / [id number] Power Port 8fr Sngl Lumen Plas - [id number] Implanted:Qty : 1 on 03/15/2023 at [facility] CR BARD : PERIPHERAL VASCULAR [id number] 03/22/2024 [id number] / / [id number] Lens Li61ao 13.00mm 18.00 - [id number] - [id number] Implanted:Qty : 1 on 02/02/2024 by Andre Swartz MD at OR [facility] Right: Eye BAUSCH & LOMB 08/20/2028 [id number] / [id number] / [id number] Lens Li61ao 13.00mm 17.50 - [id number] - [id number] Implanted:Qty : 1 on 02/16/2024 by Andre Swartz MD at OR [facility] Left: Eye BAUSCH & LOMB 07/20/2028 [id number] / [id number] / [id number] documented as of this encounter Visit Diagnoses [...] Documents on File Type Date Recorded Patient Leather Heel Breaster Expl anation Power of Oval Or Circular Glass Cutter 06/20/2018 POWER OF A TTORNEY POA: EDEL- [...] the patient have Health Care Power of Oval Or Circular Glass Cutter? Yes, in chart and reviewed as current [...] Power of Attor ephraim? No Care Teams Lawn Care Technician Relationship Specialty Start Date End Date Theresa Johnson MD [address] [place] [address] PCP - General Family Medicine 12/19/23 documented as of this encounter
--- OUTSIDE RECORDS SUMMARY | 2024-08-05 04:08 | External Medical Summary | Summary of Care ---
Author Name Unknown Organization [facility] Address [address] [place] [address] Phone [phone] Care Team Providers Care Photographer Motion Picture Name Role Phone Theresa Johnson MD Primary Care Provider [phone] Reason for Visit * Precert (Within 10 days (routine)) - Authorized Specialty Diagnoses / Procedures Referred By Joel t Referred To Contact Radiology Diagnoses Myasthenia gravis with exacerbation, adult form (HCC) Procedures IR APHERESIS ACCESS Thee Ferrari MD [address] [place] [address] Phone: tel: fax: Referral ID Status Reason Start Date Expiration Date V isits Requested Visits Authorized [id number] Authorized 07/02/2024 999 999 Encounter Details Date Type Department Care Team (Latest Contact Info) Description 07/04/2024 10:32 AM EST - 07/04/2024 11:44 AM EST Hospital Encounter Radiology Waiting Room [facility] 1st Floor [address] [place] [address] Steve Sharp MD [address] [place] [address] Arrived Discharge Disposition: Home - Self Care Allergies [...] Propionate 50 MCG/ACT Nasal Suspension Administer 1 [place] into nostril in the morning. Active FIBER [...] morning. 60 Tablet 4 5 Active pyRIDostigmine [place] 60 MG Oral Tablet (Mestinon) Take 1 Tablet by mouth in the morning and 1 Tablet at noon and 1 Tablet before bedtime. 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 Not on file Not on file documented as of this encounter Last Filed Vital Signs Vital Sign Reading Time Taken Comments Blood Pressure 125/64 07/04/2024 11:35 AM EST Pulse 68 07/04/2024 11:35 AM EST Temperature 36.3 C (97.3 F) 07/04/2024 10:[address] Respiratory Rate 11 07/04/2024 11:35 AM EST Oxygen Saturation 99% 07/04/2024 11:35 AM EST Inhaled Oxygen Concentration - - [...] Marguerite Mack RN documented in this encounter Discharge Instructions * Discharge Instr - AVS* Rafa Dubon PA-C - 07/04/2024 11:29 AM EST Discharge Date: 07/04/2024 Provider: Rafa Dubon PA-C If you are experiencing any problems related to your procedure, please contact Interventional Radiology at [phone] during normal business hours: Tuesday - Tuesday, 8:00 am - 4:00 pm. If a problem occurs outside of normal business hours, please call the hospital rag cutting machine operator at [phone] and ask for the Interventional Radiologist regional medical director. Contact scheduling for Interventional Radiology at [phone] during normal business hours: Tuesday - Tuesday, 8:00 am - 4:00 pm. The information below provides you with the instructions and the list of medications you need to betaking following discharge from the hospital. If you have any questions, please ask before leaving.Please carry this letter with you when you see your doctor in the clinic. If you have questions, you can reach us at the numbers above. SPECIAL INSTRUCTIONS Tunnel Catheter Removal Avoid strenuous activity for 24 to 48 hours after your procedure. Limit bending at the waist for 2 days after the procedure. Do not lift anything heavier than 10 pounds for 3 days after your procedure. Gradually increase your activity after 3 days. Keep dressing clean, dry and intact for 24 hrs. After 24 hrs, change dressing as needed. Dressings may be completely removed in 3 days. You may shower after 24 hours. Gently wash the area and pat it dry. Please DO NOT take a bath, soak in a hot tub, or swim until the wound is completely healed. In the first 48 hours, if you feel like you are going to cough, sneeze, or have a bowel movement, press gently on your incision site. If your incision starts to bleed or swell (access site - neck), sit upright and have someone apply pressure to the incision site for 15 minutes. After the bleeding has stopped, continue to sit upright for an hour and contact Interventional Radiology. If the bleeding does not stop after 15 minutes, call 911 for emergency assistance or go to the closest Emergency Department. When to Call Interventional Radiology Call Interventional Radiology right away if you have any of the following: Fever above 100 degrees Fahrenheit Increased bleeding, redness, swelling, warmth, or discharge at the incision site. Constant or increasing pain, numbness, coldness, or tingling around the incision area. If at any time you experience any of the following or feel you are having a medical emergency, [id number] for emergency assistance. Chest Pain Sudden, severe shortness of breath Rapid heart rate Sudden onset of weakness Do not smoke or use tobacco products in any way! If you feel suicidal or homicidal, please call the crisis hotline at [phone] ([phone]) Driving: You may resume driving if driving previously . Diet: You may resume your current diet as tolerated. Return to work or school: You may return to school or work 2 hours after the procedure, unless otherwise instructed by the physician. documented in this encounter Nursing Notes * Irene Zazueta RN - 07/04/2024 11:37 AM EST DISCHARGE - POST INTERVENTIONAL RADIOLOGY PROCEDURE Patient meets discharge criteria for Interventional Radiology. Vital signs stable. Dressing clean, dry, and intact. Patient awake and oriented to pre procedure baseline. Discharge instructions given,no questions at this time. Patient tolerating liquids, with no nausea/vomiting. All belongings sentwith patient. Discharged to home. Vital Signs: BP: 125/64 (07/04/24 1135) Temp: 36.3 C (97.3 F) (07/04/24 1045) Pulse: 68 (07/04/24 1135) Resp: 11 (07/04/24 1135) SpO2: 99 % (07/04/24 113) Neurological: Monae Coma Scale - For patients greater than two years old Eyes Open: Spontaneous (07/04/24 113) Best Verbal Response: Verbally appropriate for age (07/04/24 1135) Best Motor Response: Obeys commands appropriate for age (07/04/24 113) Coma Score: 15 (07/04/24 113) Activity: Four Extremities LOC: Fully Awake or Pre-Anesthetic Level of Consciousness BP: Less than (+/-) 20% Resp: Deep Breathe and Cough Freely (07/04 113) Respiratory: Pain Assessment Flowsheet Row Most Recent Value Pain Assessment Scale [facility] Adult Scale 0-10 (18 years and older) Pain Score 0 (no pain) documented in this encounter Miscellaneous Notes * Postprocedure Note - Rafa Dubon PA-C - 07/04/2024 11:30 AM EST PROCEDURE NOTE - Interventional Radiology [facility] [address] Name: Giorgio Sosa Location: RADIOLOGY WAITING ROOM/IR Date: 07/04/2024 Time: 11:30 AM PROCEDURE: Apheresis tunneled catheter removal CATALYST MANUFACTURING OPERATOR: Rafa Dubon PA-C ASSISTANTS: None ANESTHESIA: None COMPLICATIONS: none SPECIMEN: none ESTIMATED BLOOD LOSS: negligible FINDINGS: Successful tunneled catheter removal of right side documented in this encounter Plan of Treatment Upcoming Encounters Date Type Department Care Team (Late st Contact Info) Description 07/05/2024 7:15 AM EST Pharmacy Neurology [address] [place] [address] Neto, Pharmacist Neurology [address] [facility] [place], [place] [address] Myasthenia gravis (HCC)* 07/06/2024 9:30 AM EST Hem/Onc Treatment Hematology/Oncolog y Treatment, [place] 200 [place] [address] Park, Chair 10 Hem Onc Scen[address] 200 [facility] [place] [address] 07/10/2024 10:00 AM EST Office Visit Family Practice [facility] [place] 200 [facility] [place] [address] Theresa Johnson MD 200 [facility] [place], [place] [address] 07/13/2024 9:30 AM EST Hem/Onc Treatment Hematology/Oncolog y Treatment, [place] 200 [facility], [place] [phone] Park, Chair 5 Hem Onc [address] [place], [place] [address] 07/20/2024 9:00 AM EST Telemedicine Neurology [address] [place], [place] [address] Net[place], Pharmacist Neurology [address] [facility] [place], [place] [address] 07/20/2024 9:30 AM EST Hem/Onc Treatment Hematology/Oncolog y Treatment, [place] 200 [place] [address] Park, Chair 9 Hem Onc [address] [place] [address] 07/25/2024 11:00 AM EST Office Visit Neurology Net[address] [place] [address] Maksim Wright MD [address] [facility] [place] [id number] 09/13/2024 11:20 AM EDT Office Visit Family Practice [facility] [address] [place] [address] Theresa Johnson MD 200 [facility] [place] [address] 12/11/2024 11:15 AM EDT Office Visit Urology, [facility] 132 [facility] [place] [address] Ramesh Phan MD 27 [facility] [place] [address] 05/30/2025 11:15 AM EST Office Visit Dermatology [facility] 200 [facility] [place] [address] Marshall Henson MD 200 [facility] [place] [address] Scheduled Procedures Name Priority Associated Diagnoses Date/Ti [...] this encounter Medical Devices Implanted Type Area Ferry Engineer Device Identifier Shelf Expiration Date Model / Serial / Lot Port Powerflow 9.6fr - [id number] Implanted:Qty : 1 on 03/15/2023 at [facility] CR BARD : PERIPHERAL VASCULAR [id number] 10/21/2023 [id number] / / [id number] Power Port 8fr Sngl Lumen Plas - [id number] Implanted:Qty : 1 on 03/15/2023 at [facility] CR BARD : PERIPHERAL VASCULAR [id number] 03/22/2024 [id number] / / [id number] Lens Li61ao 13.00mm 18.00 - [id number] - [id number] Implanted:Qty : 1 on 02/02/2024 by Andre Swartz MD at OR [facility] Right: Eye BAUSCH & LOMB 08/20/2028 [id number] / [id number] / [id number] Lens Li61ao 13.00mm 17.50 - [id number] - [id number] Implanted:Qty : 1 on 02/16/2024 by Andre Swartz MD at [facility] Left: Eye BAUSCH & LOMB 07/20/2028 [id number] / [id number] / [id number] documented as of this encounter Procedures Procedure Name Priority Date/Time Associated Diagnosis Comments IR APHERESIS ACCESS Routine 07/04/2024 11:25 AM EST Myasthenia gravis with exacerbation, adult form (HCC) Procedure Note - Steve Sharp MD / Rafa Dubon PA-C - 07/04/2024 11:25 AM ESTThis note is in progress. PROCEDURE: Tunneled hemodialysis catheter removal. INDICATION: Done with apheresis treatment CATALYST MANUFACTURING OPERATOR: Rafa Dubon PA-C SUPERVISING PHYSICIAN: Dr. Sharp SCRABDULAZIZ RESIDENT (OPERATING PHYSICIAN): None. SUPPORTING PROVIDER (RN PLACEMENT): None. CONSENT: After a detailed discussion of [...] tunneled catheter removal. documented in this encounter Advance Directives Documents on File Type Date Recorded Patient Sales Assoc Expl anation Power of Rn Residential 06/20/2018 POWER OF A TTORNEY POA: [...] patient have Health Care Power of Rn Residential? Yes, in chart and reviewed as current [...] Power of Attor ephraim? No Care Teams Photographer Motion Picture Relationship Specialty Start Date End Date Theresa Johnson MD [address] [place] [address] PCP - General Family Medicine 12/19/23 documented as of this encounter
--- OUTSIDE RECORDS SUMMARY | 2024-08-05 04:09 | External Medical Summary | Summary of Care ---
Author Name Unknown Organization [facility] Address [address] [place] [address] Phone [phone] Care Team Providers Care Manufacturing Systems Engineer Name Role Phone Theresa Johnson MD Primary Care Provider [phone] Reason for Visit * Reason Comments Dosage Adjustment Via Phone (anticoag Cl inic) * Auth/Cert Specialty Diagnoses / Procedures Referred By Joel grewal Referred To Contact Diagnoses Myasthenia gravis with exacerbation (HCC) myastenia gravis with exacerbation Andrae Valderrama MD [address] [place] [address] Phone: tel: fax: [facility], [facility] [address] [place] [address] Referral ID Status Reason Start Date Expiration Date Visits Re quested Visits Authorized [id number] Encounter Details Date Type Department Care Team (Late st Contact Info) Description 06/28/2024 7:15 AM EST Pharmacy Neurology [address] [place] [phone] Nathan, Pharmacist Neurology [address] [place] [address] Myasthenia gravis (HCC)* Allergies Active Allergy Reactions Criticality Noted Date Comments Lactose Diarrhea 06/25/2024 Only milk bothers patient. He eats ice cream, yogurt and cheese. Benzalkonium Chloride 02/21/2015 Merthiolate "the orange kind" Caused a rash documented as of this encounter (statuses as of 06/28/2024) Medications ALEVE 220 MG PO CAPS Take 1 Capsule by mouth daily as needed. Active Fluticasone Propionate 50 MCG/ACT Nasal Suspension Administer 1 [place] into nostril in the morning. Active FIBER [...] morning. 60 Tablet 4 5 Active pyRIDostigmine [place] 60 MG Oral Tablet (Mestinon) Take 1 Tablet by mouth in the morning and 1 Tablet at noon and 1 Tablet before bedtime. 90 Tablet 4 5 Active pyRIDostigmine [place] 60 MG Oral Tablet (Mestinon) Take 1 Tablet by mouth every 6 hours. 120 Tablet 06/27/2024 3:17 PM EST 02/05/202 5 07/28/19 25 Active predniSONE 10 MG Oral Tablet (Deltasone) Take 3 Tablets by mouth in the morning. 90 Tablet 06/27/2024 3:17 PM EST 5 07/28/19 25 Active Mirtazapine 15 MG Oral Tablet (Remeron) Take 1 Tablet by mouth at bedtime for 10 days. 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 (5 years old or older) Answer Date of Assessment Author No 06/24/2024 9:28 AM aMrguerite Mack RN * Because of a physical, [...] Progress Notes * Anette Tanner RPh - 06/28/2024 8:49 AM EST Patient was discharged from [facility] 06/27/24. Per discharge notes, plan to continue outpatient PLEX for total of 5 sessions (received 2 sessions while inpatient). He is scheduled for next PLEX 06/29/24. Vyvgart infusion cancelled and rescheduled for 07/13/24. Called patient to discuss PLEX / Vyvgart plan. Left requesting call back. Will reattempt tomorrow if no response. Anette Tanner RPh Clinical Pharmacist, Neurology Medication Therapy Disease Management 06/28/2024 11:05 AM documented in this encounter Plan of Treatment Upcoming Encounters Date Type Department Care Team (Late st Contact Info) Description 06/29/2024 7:15 AM EST Pharmacy Neurology Nathan [address] [place], [place] [phone] Nathan Pharmacist Neurology [address] [place] [address] 06/29/2024 2:00 PM EST Office Visit Apheresis Clinic, [place] [address] [place] [address] Provider, Apheresis [address] [place] [address] 07/06/2024 9:30 AM EST Hem/Onc Treatment Hematology/Oncology Treatment, [place] [address] [facility] [place] [phone] Krista, Chair 10 Hem Onc [facility] 200 [facility] [place] [id number] 07/13/2024 9:30 AM EST Hem/Onc Treatment Hematology/Oncology Treatment, [place] [address] [facility], [place] [address] Krista, Chair 5 Hem Onc [facility] 200 [facility] [place] [id number] 07/20/2024 9:00 AM EST Telemedicine Neurology [address] [place] [phone] Nathan Pharmacist Neurology [address] [place] [address] 07/25/2024 11:00 AM EST Office Visit Neurology Nathan [address] [place] [phone] Maksim Wright MD [address] [place] [address] 09/13/2024 11:20 AM EDT Office Visit Family Practice [facility] [place] 200 [facility] [place], [place] [address] Theresa Johnson MD 200 [facility] [place] [address] 12/11/2024 11:15 AM EDT Office Visit Urology, [facility] [address] [place] [address] Ramesh Phan MD [address] [place] [address] 05/30/2025 11:15 AM EST Office Visit Dermatology [facility] 200 [facility] [place] [address] Marshall Henson MD 200 [facility] [place] [address] Scheduled Procedures Name Priority Associated Diagnoses Date/Ti [...] this encounter Medical Devices Implanted Type Area Substation Electrician Supervisor Device Identifier Shelf Expiration Date Model / Serial / Lot Port Powerflow 9.6fr - [id number] Implanted:Qty : 1 on 03/15/2023 at [facility] CR [facility] : PERIPHERAL VASCULAR [id number] 10/21/2023 [id number] / / [id number] Power Port 8fr Sngl Lumen Plas - [id number] Implanted:Qty : 1 on 03/15/2023 at [facility] CR BARD : PERIPHERAL VASCULAR [id number] 03/22/2024 [id number] / / [id number] Lens Li61ao 13.00mm 18.00 - [id number] - [id number] Implanted:Qty : 1 on 02/02/2024 by Andre Swartz MD at [facility] Right: Eye [employer]CH [employer] LOMB 08/20/2028 [id number] / [id number] / [id number] Lens Li61ao 13.00mm 17.50 - [id number] - [id number] Implanted:Qty : 1 on 02/16/2024 by Andre Swartz MD at [facility] Left: Eye BAUSCH & LOMB 07/20/2028 [id number] / [id number] / [id number] documented as of this encounter Visit Diagnoses Diagnosis Myasthenia gravis (HCC)- Primary Myasthenia gravis without exacerbation documented in this encounter Advance Directives Documents on File Type Date Recorded Patient Lactation Coordinator Expl anation Power of Office Helper Clerical 06/20/2018 POWER OF A TTORNEY POA: EDEL- [...] the patient have Health Care Power of Office Helper Clerical? Yes, in chart and reviewed as current [...] Power of Attor ephraim? No Care Teams Manufacturing Systems Engineer Relationship Specialty Start Date End Date Theresa Johnson MD [address] [place], [place] [address] PCP - General Family Medicine 12/19/23 documented as of this encounter
--- OUTSIDE RECORDS SUMMARY | 2024-08-05 04:09 | External Medical Summary | Summary of Care ---
Author Name Unknown Organization [facility] Address [address] [facility] [place] [address] Phone [phone] Care Team Providers Care Hand Cigar Making Supervisor Name Role Phone Theresa Johnson MD Primary Care Provider [phone] Reason for Visit * Reason Comments Dosage Adjustment Via Phone (anticoag Cl inic) Encounter Details Date Type Department Care Team (Late st Contact Info) Description 06/29/2024 7:15 AM EST Pharmacy Neurology [address], [place] [address] [place] [address] Nathan, Pharmacist Neurology [address] [place] [address] Myasthenia gravis (HCC)* Allergies Active Allergy Reactions Criticality Noted Date Comments Lactose Diarrhea 06/25/2024 Only milk bothers patient. He eats ice cream, yogurt and cheese. Benzalkonium Chloride 02/21/2015 Merthiolate "the orange kind" Caused a rash documented as of this encounter (statuses as of 06/29/2024) Medications ALEVE 220 MG PO CAPS Take 1 Capsule by mouth daily as needed. Active Fluticasone Propionate 50 MCG/ACT Nasal Suspension Administer 1 [place] into nostril in the morning. Active FIBER [...] morning. 60 Tablet 4 5 Active pyRIDostigmine [place] 60 MG Oral Tablet (Mestinon) Take 1 Tablet by mouth in the morning and 1 Tablet at noon and 1 Tablet before bedtime. 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 He has been at his daughter's since being discharged from [facility] for MG exacerbation. Scheduled for remainder of total of 5 PLEX sessions on 06/29, 07/02, and 07/04 (pending weather next week). Patient states he is feeling pretty good. Swallowing is okay but he is being conscious with chewing/swallowing. Breathing is okay - has spirometer and notes his readings have been improving. Still using a cane to move around but isn't as wobbly. He has residual weakness but unsure if this is due tobeing in bed for 5 days during admission. We discussed resuming Vyvgart. Patient does want to continue with Vyvgart as he feels it significantly helped him over the past several months. He feels recent exacerbation was related to trying to taper prednisone dose. He received last infusion on 06/22 prior to hospitalization. Next infusions scheduled for 07/06 and 07/13. I let Giorgio know that I would relay this information to Dr. Wright and Mila - sent in 06/28 My. Will follow up next week for updates. Anette Tanner RPh Clinical Pharmacist, Neurology Medication Therapy Disease Management 06/29/2024 12:44 PM documented in this encounter Plan of Treatment Upcoming Encounters Date Type Department Care Team (Late st Contact Info) Description 07/02/2024 9:30 AM EST Office Visit Apheresis Clinic, [place] [address] [place] [phone] Provider, Apheresis [facility] N [facility] [place] [address] 07/03/2024 7:15 AM EST Pharmacy Neurology Nathan [address] [place] [phone] Nathan, Pharmacist Neurology [address] [place] [address] 07/06/2024 9:30 AM EST Hem/Onc Treatment Hematology/Oncology Treatment, [place] [address] [facility] [place] [phone] Park, Chair 10 Hem Onc [place] [address] [place] [address] 07/10/2024 10:00 AM EST Office Visit [facility] [address] [place] [address] Theresa Johnson MD [address] [place] [address] 07/13/2024 9:30 AM EST [facility] [address] [place] [place] [address] Park, Chair 5 Hem Onc [place] [address] [place], [place] [address] 07/20/2024 9:00 AM EST Telemedicine Neurology Nathan [address] [place] [phone] Nathan, Pharmacist Neurology [address] [place] [address] 07/25/2024 11:00 AM EST Office Visit Neurology Nathan [address] [place] [phone] Maksim Wright MD [address] [place] [address] 09/13/2024 11:20 AM EDT Office Visit [facility] [address] [place] [address] Theresa Johnson MD [address] [place] [address] 12/11/2024 11:15 AM EDT Office Visit Urology, [facility] [address] [place] [address] Ramesh Phan MD [address] [place] [address] 05/30/2025 11:15 AM EST Office Visit Dermatology [facility] 200 [facility] [place] [address] Marshall Henson MD 200 [facility] [place] [address] Scheduled Procedures Name Priority Associated Diagnoses Date/Ti [...] this encounter Medical Devices Implanted Type Area Aluminum Can Collector Device Identifier Shelf Expiration Date Model / Serial / Lot Port Powerflow 9.6fr - [id number] Implanted:Qty : 1 on 03/15/2023 at [facility] CR BARD : PERIPHERAL VASCULAR [id number] 10/21/2023 [id number] / / [id number] Power Port 8fr Sngl Lumen Plas - [id number] Implanted:Qty : 1 on 03/15/2023 at [facility] CR BARD : PERIPHERAL VASCULAR [id number] 03/22/2024 [id number] / / [id number] Lens Li61ao 13.00mm 18.00 - [id number] - [id number] Implanted:Qty : 1 on 02/02/2024 by Andre Swartz MD at [facility] Right: Eye BAUSCH [employer] LOMB 08/20/2028 [id number] / [id number] / [id number] Lens Li61ao 13.00mm 17.50 - [id number] - [id number] Implanted:Qty : 1 on 02/16/2024 by Andre Swartz MD at [facility] Left: Eye BAUSCH & LOMB 07/20/2028 [id number] / [id number] / [id number] documented as of this encounter Visit Diagnoses Diagnosis Myasthenia gravis (HCC)- Primary Myasthenia gravis without exacerbation documented in this encounter Advance Directives Documents on File Type Date Recorded Patient Cork Mixer Expl anation Power of Clamshell Engineer 06/20/2018 POWER OF A TTORNEY POA: [...] the patient have Health Care Power of Clamshell Engineer? Yes, in chart and reviewed as [...] Power of Attor ephraim? No Care Teams Hand Cigar Making Supervisor Relationship Specialty Start Date End Date Theresa Johnson MD [address] [place] [address] PCP - General Family Medicine 12/19/23 documented as of this encounter
--- OUTSIDE RECORDS SUMMARY | 2024-08-05 04:09 | External Medical Summary | Summary of Care ---
Author Name Unknown Organization [facility] Address [address] [place] [address] Phone [phone] Care Team Providers Care Physical Meteorologist Name Role Phone Theresa Johnson MD Primary Care Provider Reason for Visit * Reason Onset Date Comments Appointment 06/25/2024 Encounter Details Date Type Department Care Team (Late st Contact Info) Description 06/25/2024 Telephone Hematology/Oncology Treatment, [place] [address] [place] [address] Maksim Wright MD [address] [place] [address] Appointment Allergies Active Allergy Reactions Criticality Noted Date Comments Lactose Diarrhea 06/25/2024 Only milk bothers patient. He eats ice cream, yogurt and cheese. Benzalkonium Chloride 02/21/2015 Merthiolate "the orange kind" Caused a rash documented as of this encounter (statuses as of 06/27/2024) Medications ALEVE 220 MG PO CAPS Take 1 Capsule by mouth daily as needed. Active Fluticasone Propionate 50 MCG/ACT Nasal Suspension Administer 1 [place] into nostril in the morning. Active FIBER [...] 60 Tablet 4 06/11/19 25 Active pyRIDostigmine [place] 60 MG Oral Tablet (Mestinon) Take 1 Tablet by mouth in the morning and 1 Tablet at noon and 1 Tablet before bedtime. 90 Tablet 4 06/11/19 25 Active SUMAtriptan Succinate 100 MG Oral TabletIndication s:Migraine without status migrainosus, not intractable, unspecified migraine type TAKE 1 TABLET AT ONSET OF MIGRAINE. MAY REPEAT IN 2 HOURS BUT NOT MORE. 10 Tab 3 02/06/20 21 025 Discontinued Triamcinolone Acetonide 0.5 % External CreamIndications :Dermatitis APPLY TO AFFECTED AREAS TWICE DAILY. 60 g 1 08/22/19 22 025 Discontinued Amoxicillin-Pot Clavulanate 875-125 MG Oral Tablet (Augmentin)Indic ations:Acute non-recurrent frontal sinusitis Take 1 Tablet by mouth in the morning and 1 Tablet before bedtime. Do all this for 10 days. 20 Tablet 04/09/20 24 025 Discontinued predniSONE 10 MG Oral Tablet (Deltasone) Take 2 Tablets by mouth in the morning. 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 Discussed with Dr. Wright via TT regarding Vyvgart infusion due 06/29/24. Dr. Wright would like to discuss plan with patient to decide if he is going to proceed with Vyvgart after discharge. Added to [facility] schedule for tomorrow to check on admission status. * Telephone Encounter - Anette Tanner RPh - 06/25/2024 10:19 AM EST Will follow up closer to infusion date on Tuesday for admission status. * Telephone Encounter - Paola Caraballo RN - 06/25/2024 8:52 AM EST Patient currently admitted at [facility], scheduled for 2nd vyvgart on 06/29/24. Neuro: FYI- please advise if appt 06/29 should be cancelled documented in this encounter Plan of Treatment Upcoming Encounters Date Type Department Care Team (Late st Contact Info) Description 06/28/2024 7:15 AM EST Pharmacy Neurology [address] [place] [phone] [place], Pharmacist Neurology [facility] [place] [address] 06/29/2024 2:00 PM EST Office Visit Apheresis Clinic, [place] [address] [place] [address] Provider, Apheresis [address] [place] [id number] 07/06/2024 9:30 AM EST Hem/Onc Treatment Hematology/Oncology Treatment, [address] [address] Park, Chair 10 Hem Onc [address] [place] [address] [place] [address] 07/13/2024 9:30 AM EST Hem/Onc Treatment Hematology/Oncology Treatment, [address] [address] Park, Chair 5 Hem Onc [place] 200 [facility] [place] [address] 07/20/2024 9:00 AM EST Telemedicine Neurology [address] [place] [phone] Neto, Pharmacist Neurology [address] [facility] [place] [address] 07/25/2024 11:00 AM EST Office Visit Neurology [address] [place] [phone] Maksim Wright MD [address] [facility] [place] [id number] 09/13/2024 11:20 AM EDT Office Visit Family Practice [facility] [address] [place] [address] Theresa Johnson MD 200 [facility] [place] [address] 12/11/2024 11:15 AM EDT Office Visit Urology, [facility] [address] [facility] [place] [address] Ramesh Phan MD [address] [place] [address] 05/30/2025 11:15 AM EST Office Visit Dermatology [facility] [address] [place] [address] Marshall Henson MD [address] [facility] [place] [address] Scheduled Procedures Name Priority Associated Diagnoses Date/Ti [...] this encounter Medical Devices Implanted Type Area Job Compositor Device Identifier Shelf Expiration Date Model / Serial / Lot Port Powerflow 9.6fr - [id number] Implanted:Qty : 1 on 03/15/2023 at [facility] CR BARD : PERIPHERAL VASCULAR [id number] 10/21/2023 [id number] / / [id number] Power Port 8fr Sngl Lumen Plas - [id number] Implanted:Qty : 1 on 03/15/2023 at [facility] CR BARD : PERIPHERAL VASCULAR [id number] 03/22/2024 [id number] / / [id number] Lens Li61ao 13.00mm 18.00 - [id number] - [id number] Implanted:Qty : 1 on 02/02/2024 by Andre Swartz MD at [facility] Right: Eye BAUSCH [employer] LOMB 08/20/2028 [id number] / [id number] / [id number] Lens Li61ao 13.00mm 17.50 - [id number] - [id number] Implanted:Qty : 1 on 02/16/2024 by Andre Swartz MD at [facility] Left: Eye BAUSCH & LOMB 07/20/2028 [id number] / [id number] / [id number] documented as of this encounter Advance Directives Documents on File Type Date Recorded Patient Full Roll Inspector Expl anation Power of Ict Development Manager 06/20/2018 POWER OF A TTORNEY POA: [...] the patient have Health Care Power of Ict Development Manager? Yes, in chart and reviewed as current [...] Power of Attor ephraim? No Care Teams Physical Meteorologist Relationship Specialty Start Date End Date Theresa Johnson MD [address] [place] [address] PCP - General Family Medicine 12/19/23 documented as of this encounter
--- OUTSIDE RECORDS SUMMARY | 2024-08-05 04:09 | External Medical Summary | Summary of Care ---
Author Name Unknown Organization [facility] Address [address] [place] [facility] [place] [place] [place] [address] Phone [phone] Care Team Providers Care Upsetter Setter Up Name Role Phone Theresa Johnson MD Primary Care Provider [phone] Reason for Visit * Reason Comments Dosage Adjustment Via Phone (anticoag Cl inic) Encounter Details Date Type Department Care Team (Late st Contact Info) Description 07/03/2024 7:15 AM EST Pharmacy Neurology Renny John, [place] [address] [place] [address] Nathan, Pharmacist Neurology [address] [place] [address] Myasthenia gravis (HCC)* Allergies Active Allergy Reactions Criticality Noted Date Comments Lactose Diarrhea 06/25/2024 Only milk bothers patient. He eats ice cream, yogurt and cheese. Benzalkonium Chloride 02/21/2015 Merthiolate "the orange kind" Caused a rash documented as of this encounter (statuses as of 07/03/2024) Medications ALEVE 220 MG PO CAPS Take 1 Capsule by mouth daily as needed. Active Fluticasone Propionate 50 MCG/ACT Nasal Suspension Administer 1 [place] into nostril in the morning. Active FIBER [...] morning. 60 Tablet 4 5 Active pyRIDostigmine [place] 60 MG Oral Tablet (Mestinon) Take 1 Tablet by mouth in the morning and 1 Tablet at noon and 1 Tablet before bedtime. 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 Will follow up for updates. Anette Tanner brett Clinical Pharmacist, Neurology Medication Therapy Disease Management 07/03/2024 12:04 PM] documented in this encounter Plan of Treatment Upcoming Encounters Date Type Department Care Team (Late st Contact Info) Description 07/04/2024 8:30 AM EST [facility] [address] [place] [address] Provider, Apheresis [address] [place] [address] 07/04/2024 12:00 PM EST Appointment Interventional Radiology [facility], [facility] 1st Floor [address] [place] [address] 07/04/2024 2:00 PM EST Scheduled Telephone Neurology [address] [place] [address] Neuromuscular, Phone Nurse Neuro [address] [place] [address] 07/05/2024 7:15 AM EST Pharmacy Neurology Nathan [address] [place] [address] Nathan, Pharmacist Neurology [facility] [place] [address] 07/06/2024 9:30 AM EST Hem/Onc Treatment Hematology/Oncology Treatment, [place] [address] [place] [address] Krista, Chair 10 Hem Onc Scenery [address] [facility], [place] [id number] 07/10/2024 10:00 AM EST Office Visit [facility] [address] [place], [place] [address] Theresa Johnson MD [address] [place], [place] [address] 07/13/2024 9:30 AM EST Hem/Onc Treatment Hematology/Oncology Treatment, [place] [address] [place] [address] Krista, Chair 5 Hem Onc [facility] [address] [place], [place] [address] 07/20/2024 9:00 AM EST Telemedicine Neurology [address] [place] [address] Nathan, Pharmacist Neurology [address] [place] [address] 07/25/2024 11:00 AM EST Office Visit Neurology [address] [place] [phone] Maksim Wright MD [address] [place] [address] 09/13/2024 11:20 AM EDT Office Visit [facility] [address] [place], [place] [address] Theresa Johnson MD [address] [place], [place] [address] 12/11/2024 11:15 AM EDT Office Visit Urology, [facility] [address] [facility] [place] [address] Ramesh Phan MD [address] [place] [address] 05/30/2025 11:15 AM EST Office Visit Dermatology [facility] [address] [place] [address] Marshall Henson MD [address] [facility] [place] [address] Scheduled Procedures Name Priority Associated Diagnoses Date/Ti [...] encounter Medical Devices Implanted Type Area Field Laborer Device Identifier Shelf Expiration Date Model / Serial / Lot Port Powerflow 9.6fr - [id number] Implanted:Qty : 1 on 03/15/2023 at [employer] [facility] CR BARD : PERIPHERAL VASCULAR [id number] 10/21/2023 [id number] / / [id number] Power Port 8fr Sngl Lumen Plas - [id number] Implanted:Qty : 1 on 03/15/2023 at [facility] CR BARD : PERIPHERAL VASCULAR [id number] 03/22/2024 [id number] / / [id number] Lens Li61ao 13.00mm 18.00 - [id number] - [id number] Implanted:Qty : 1 on 02/02/2024 by Andre Swartz MD at OR [facility] Right: Eye [employer]CH [employer] LOMB 08/20/2028 [id number] / [id number] / [id number] Lens Li61ao 13.00mm 17.50 - [id number] - [id number] Implanted:Qty : 1 on 02/16/2024 by Andre Swartz MD at OR [facility] Left: Eye BAUSCH & LOMB 07/20/2028 [id number] / [id number] / [id number] documented as of this encounter Visit Diagnoses Diagnosis Myasthenia gravis (HCC)- Primary Myasthenia gravis without exacerbation documented in this encounter Advance Directives Documents on File Type Date Recorded Patient Community Relations Advisor Expl anation Power of Staff Design Engineer 06/20/2018 POWER OF A TTORNEY POA: [...] the patient have Health Care Power of Staff Design Engineer? Yes, in chart and reviewed as [...] Power of Attor ephraim? No Care Teams Upsetter Setter Up Relationship Specialty Start Date End Date Theresa Johnson MD [address] [facility] [place] [address] PCP - General Family Medicine 12/19/23 documented as of this encounter
--- OUTSIDE RECORDS SUMMARY | 2024-08-05 04:09 | External Medical Summary | Summary of Care ---
Author Name Unknown Organization [facility] Address [address] [place] [address] Phone [phone] Care Team Providers Care Qa Lead Name Role Phone Theresa Johnson MD Primary Care Provider [phone] Reason for Visit * Reason Onset Date Comments Appointment 06/25/2024 Encounter Details Date Type Department Care Team (Late st Contact Info) Description 06/25/2024 Telephone Hematology/Oncology Treatment, [place] [address] [place] [address] Maksim Wright MD [address] [place] [address] Appointment Allergies Active Allergy Reactions [...] Propionate 50 MCG/ACT Nasal Suspension Administer 1 [place] into nostril in the morning. 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 Added to [facility] schedule for tomorrow to check on admission status. * Telephone Encounter - Anette Tanner RPh - 06/25/2024 10:19 AM EST Will follow up closer to infusion date on Tuesday for admission status. * Telephone Encounter - Paola Caraballo RN - 06/25/2024 8:52 AM EST Patient currently admitted at [facility], scheduled for 2nd vyvgart on 06/29/24. Neuro: FYI- please advise if appt 06/29 should be cancelled documented in this encounter Plan of Treatment Upcoming Encounters Date Type Department Care Team (Late st Contact Info) Description 06/29/2024 2:00 PM EST Office Visit Apheresis Clinic, [place] [address] [place] [address] Provider, Apheresis [address] [place], [place] [phone] 07/06/2024 9:30 AM EST Hem/Onc Treatment Hematology/Oncology Treatment, [place] [address] [place] [address] Krista, Chair 10 Hem On[address] [place] [id number] 07/13/2024 9:30 AM EST Hem/Onc Treatment Hematology/Oncology Treatment, [place] [address] [facility] [place] [address] Krista, Chair 5 Hem Onc [address] [place] [id number] 07/20/2024 9:00 AM EST Telemedicine Neurology [address] [place] [phone] Nathan, Pharmacist Neurology [address] [place] [place] [address] 07/25/2024 11:00 AM EST Office Visit Neurology Nathan [address] [place] [address] Maksim Wright MD [address] [place] [address] 09/13/2024 11:20 AM EDT Office Visit Family Practice [facility] [place] [address] [facility] [place] [address] Theresa Johnson MD [address] [facility] [place] [address] 12/11/2024 11:15 AM EDT Office Visit Urology, [facility] [address] [place] [address] Ramesh Phan MD [address] [place] [address] 05/30/2025 11:15 AM EST Office Visit Dermatology [facility] [address] [facility] [place] [address] Marshall Henson MD [address] [facility] [place] [address] Scheduled Procedures Name Priority Associated Diagnoses Date/Ti [...] encounter Medical Devices Implanted Type Area Computer Support Specialist Device Identifier Shelf Expiration Date Model / Serial / Lot Port Powerflow 9.6fr - [id number] Implanted:Qty : 1 on 03/15/2023 at [facility] CR BARD : PERIPHERAL VASCULAR [id number] 10/21/2023 [id number] / / [id number] Power Port 8fr Sngl Lumen Plas - [id number] Implanted:Qty : 1 on 03/15/2023 at [facility] CR BARD : PERIPHERAL VASCULAR [id number] 03/22/2024 [id number] / / [id number] Lens Li61ao 13.00mm 18.00 - [id number] - [id number] Implanted:Qty : 1 on 02/02/2024 by Andre Swartz MD at OR [facility] Right: Eye [employer]CH [employer] LOMB 08/20/2028 [id number] / [id number] / [id number] Lens Li61ao 13.00mm 17.50 - [id number] - [id number] Implanted:Qty : 1 on 02/16/2024 by Andre Swartz MD at [facility] Left: Eye BAUSCH [employer] LOMB 07/20/2028 [id number] / [id number] / [id number] documented as of this encounter Advance Directives Documents on File Type Date Recorded Patient Cement Patcher Expl anation Power of Health And Safety Inspector 06/20/2018 POWER OF A TTORNEY POA: [...] the patient have Health Care Power of Health And Safety Inspector? Yes, in chart and reviewed as current [...] Power of Attor ephraim? No Care Teams Qa Lead Relationship Specialty Start Date End Date Theresa Johnson MD [address] [place] [address] PCP - General Family Medicine 12/19/23 documented as of this encounter
--- OUTSIDE RECORDS SUMMARY | 2024-08-05 04:09 | External Medical Summary | Summary of Care ---
Author Name Unknown Organization [facility] Address [address] [place] [address] Phone [phone] Care Team Providers Care Central Office Trouble Shooter Name Role Phone Theresa Johnson MD Primary Care Provider [phone] Reason for Visit * Reason Comments Treatment plasmapheresis Encounter Details Date Type Department Care Team (Late st Contact Info) Description 06/29/2024 2:00 PM EST Office Visit Apheresis Clinic, [place] [address] [place] [address] Provider, Apheresis [facility] [place], [place] [phone] Myasthenia gravis with exacerbation, adult form (HCC)* Allergies Active Allergy Reactions Criticality Noted Date Comments Lactose Diarrhea 06/25/2024 Only milk bothers patient. He eats ice cream, yogurt and cheese. Benzalkonium Chloride 02/21/2015 Merthiolate "the orange kind" Caused a rash documented as of this encounter (statuses as of 07/02/2024) Medications ALEVE 220 MG PO CAPS Take 1 Capsule by mouth daily as needed. Active Fluticasone Propionate 50 MCG/ACT Nasal Suspension Administer 1 [place] into nostril in the morning. Active FIBER [...] morning. 60 Tablet 4 5 Active pyRIDostigmine [place] 60 MG Oral Tablet (Mestinon) Take 1 Tablet by mouth in the morning and 1 Tablet at noon and 1 Tablet before bedtime. 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 Safety [...] Description 07/03/2024 7:15 AM EST Pharmacy Neurology [address], [place] [address] Nathan Pharmacist Neurology [address] [facility] [place] [address] 07/04/2024 8:30 AM EST Office Visit Apheresis Clinic, [place] [address] [place] [facility] [place] [address] Provider, Apheresis [address] [facility] [place] [address] 07/04/2024 2:00 PM EST Scheduled Telephone Neurology [address] [place] [address] Neuromuscular, Phone Nurse Neuro [address] [facility] [address] 07/06/2024 9:30 AM EST Hem/Onc Treatment Hematology/Oncology Treatment, [place] [address] [place] [address] Park, Chair 10 Hem Onc Scenery [address] [place] [address] 07/10/2024 10:00 AM EST Office Visit [facility] [address] [place] [address] Theresa Johnson MD [address] [place] [address] 07/13/2024 9:30 AM EST Hem/Onc Treatment Hematology/Oncology Treatment, [place] [address] [place] [address] Krista, Chair 5 Hem Onc Scenery 200 [facility] [place], [place] [address] 07/20/2024 9:00 AM EST Telemedicine Neurology [address] [place] [address] Raquel Evans Neurology [address] [place] [address] 07/25/2024 11:00 AM EST Office Visit Neurology Nathan [address] [place] [address] Maksim Wright MD [address] [place] [address] 09/13/2024 11:20 AM EDT Office Visit [facility] [address] [place], [place] [address] Theresa Johnson MD [address] [place] [address] 12/11/2024 11:15 AM EDT Office Visit Urology, [facility] [address] [facility] [place] [address] Ramesh Phan MD [address] [place] [address] [id number] 05/30/2025 11:15 AM EST Office Visit Dermatology [facility] [place] [address] Marshall Henson MD 200 [facility] [place] [address] Scheduled Procedures Name Priority Associated Diagnoses Date/Ti [...] this encounter Medical Devices Implanted Type Area Vending Mechanic Device Identifier Shelf Expiration Date Model / Serial / Lot Port Powerflow 9.6fr - [id number] Implanted:Qty : 1 on 03/15/2023 at [facility] CR BARD : PERIPHERAL VASCULAR [id number] 10/21/2023 [id number] / / [id number] Power Port 8fr Sngl Lumen Plas - [id number] Implanted:Qty : 1 on 03/15/2023 at [facility] CR BARD : PERIPHERAL VASCULAR [id number] 03/22/2024 [id number] / / [id number] Lens Li61ao 13.00mm 18.00 - [id number] - [id number] Implanted:Qty : 1 on 02/02/2024 by Andre Swartz MD at OR [facility] Right: Eye [employer]CH [employer] LOMB 08/20/2028 [id number] / [id number] / [id number] Lens Li61ao 13.00mm 17.50 - [id number] - [id number] Implanted:Qty : 1 on 02/16/2024 by Andre Swartz MD at OR [facility] Left: Eye BAUSCH & LOMB 07/20/2028 [id number] / [id number] / [id number] documented as of this encounter Visit Diagnoses [...] infusion document total amount infused. 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 Yes, in chart and reviewed as [...] Power of Attor ephraim? No Care Teams Central Office Trouble Shooter Relationship Specialty Start Date End Date Theresa Johnson MD [address] [place] [address] PCP - General Family Medicine 12/19/23 documented as of this encounter
--- OUTSIDE RECORDS SUMMARY | 2024-08-05 04:09 | External Medical Summary | Summary of Care ---
Author Name Unknown Organization [facility] Address [address] [place] [address] Phone [phone] Care Team Providers Care Family Consumer Science F[employer] Teacher Name Role Phone Theresa Johnson MD Primary Care Provider [phone] Reason for Referral * Evaluate & Treat - Unlimited Visits (Within 3 days (urgent)) - Authorized Specialty Diagnoses / Procedures Referred By Joel grewal Referred To Contact Anatomic/Clinical Pathology Diagnoses Myasthenia gravis with exacerbation, adult form (HCC) Farrah Justin DO [address] [place] [address] Phone: tel: fax: Referral ID Status Reason Start Date Expiration Date Visits Requested Visits Authorized [id number] Authorized Specialty Services Required 06/27/2024 999 999 Question Answer Referral Priority Within 3 days (urgent) [place] for Ref[place] [facility] [place] for Referral? Plasmapheresis Requested treatment plan? Per Apheresis Guidelines Comments Completing clinical course of PLEX for myasthenia exacerbation. Received 2 sessions inpatient. Next session planned for 06/29/24 and week of 07/02/24. Discharge Order Reason for Visit * Auth/Cert Specialty Diagnoses / Procedures Referred By Joel grewal Referred To Contact Diagnoses Myasthenia gravis with exacerbation (HCC) myastenia gravis with exacerbation Andrae Valderrama MD [address] [place] [address] Phone: tel: fax: Admissions, C [address] [place] [address] Referral ID Status Reason Start Date Expiration Date Visits Re quested Visits Authorized [id number] Encounter Details Date Type Department Care Team (Latest Contact Info) Description 06/24/2024 8:57 AM EST - 06/27/2024 3:40 PM EST Hospital Encounter [id number] [facility] [address] F[facility]OR [address] [place] [address] Andrae Valderrama MD [address] [place] [address] Talha Cooley MD [address], [place] [id number] Fer Marcum MD [address], [place] [id number] Hawa Sneed MD [address] [id number] Farrah Justin DO [address], [place] [id number] Discharge Disposition: Home - Self Care Allergies [...] 50 MCG/ACT Nasal Suspension Administer 1 [place] into nostril in the morning. Active FIBER [...] 60 Tablet 4 06/11/19 25 Active pyRIDostigmine [place] 60 MG Oral Tablet (Mestinon) Take 1 Tablet by mouth in the morning and 1 Tablet at noon and 1 Tablet before bedtime. 90 Tablet 4 06/11/19 25 Active pyRIDostigmine [place] 60 MG Oral Tablet (Mestinon) Take 1 Tablet by mouth every 6 hours. 120 Tablet 5 3:17 PM EST 06/27/19 25 025 Active predniSONE 10 MG Oral Tablet (Deltasone) Take 3 Tablets by mouth in the morning. 90 Tablet 5 3:17 PM EST 06/27/19 25 025 Active Mirtazapine 15 MG Oral Tablet (Remeron) Take 1 Tablet by mouth at bedtime for 10 days. 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 Not on file Not on file Not on file documented as of this encounter Last Filed Vital Signs Vital Sign Reading Time Taken Comments Blood Pressure 130/62 06/27/2024 2:05 PM EST Pulse 76 06/27/2024 2:05 PM EST Temperature 36.3 C (97.3 F) 06/27/2024 2:05 PM ES T Respiratory Rate 18 06/27/2024 2:05 PM EST Oxygen Saturation 99% 06/27/2024 2:05 PM EST Inhaled Oxygen Concentration - - Weight 85 kg (187 lb 8 oz) 06/27/2024 1:46 AM ES T Height 170.2 cm (5' 7") 06/24/2024 9:28 AM EST Body Mass Index 29.37 06/24/2024 9:28 AM EST documented in this [...] Discharge Instructions * Discharge Instr - AVS* Kyle Berger MD - 06/26/2024 10:52 AM EST Discharge Date: 06/26/[address] Wright of the department of Neurology at [phone] during business hours for any questions or test results. For after-hours emergencies call [phone] and have the on callNeurologist paged. If you do not have a Neurology followup appointment scheduled prior to discharge, please call [phone] to schedule the appointment at your earliest convenience. The information below provides you with the instructions and the list of medications you need to betaking following discharge from the hospital. If you have any questions, please ask before leaving.Please carry this letter with you when you see your doctor in the clinic. If you have questions, you can reach us at the numbers above. Brief summary of your inpatient care: You were admitted with an exacerbaiton of your Myasthenia Gravis. Initially you were monitored in the ICU for concern of airway compromise. You underwent tretment with PLEX on 06/25, and 06/27 in the hospital with planned every other day PLEX for 5 days. You can continue this as an outpatient. We will arrange for a follow up nurse phone call in [address] Wright's clinic nurse. Continue Prednisone 30 mg every day and Mestinon 60 mg every 6 hours untilthat time. Your primary diagnosis at discharge was Myasthenic Exacerbation Your doctors during this hospitalization included: Farrah Justin, DO Inpatient test results pending: None Operations & Procedures: Tunneled Catheter Placement Complications: none applicable Advance Directive Documented: Advance Directive Does the Patient have an Advance Directive? Yes Diet: Regular Activity: As tolerated No strenuous activity for 24 hours Driving: N/A. Date you may return to work or school: N/A See your primary care physician (Theresa Johnson MD) in 1-2 weeks. Future Appointments-next 60 days Date/Time Provider Specialty Dept Phone 06/27/2024 9:00 AM Provider, Apheresis Ancillary [phone] 06/29/2024 8:45 AM Krista, Chair 2 Hem Onc Scenery Hematology Oncology [phone] 07/06/2024 9:30 AM Park, Chair 10 Hem Onc Scenery Hematology Oncology [phone] 07/13/2024 9:30 AM Krista, Chair 5 Hem Onc Scenery Hematology Oncology [phone] 07/20/2024 9:00 AM Raquel Evans Neurology Neurology Arrive at: Patient's Home [phone] 07/25/2024 11:00 AM (Arrive by 10:45 AM) Maksim Wright MD Neurology [phone] 09/13/2024 11:20 AM (Arrive by 11:05 AM) Theresa Johnson MD Family Medicine [phone] 12/11/2024 11:15 AM (Arrive by 11:00 AM) Ramesh Phan MD Urology [phone] 05/30/2025 11:15 AM (Arrive by 11:00 AM) Marshall Henson MD Dermatology [phone] SPECIAL INSTRUCTIONS: Stroke education was given for the following: Activation of emergency medical system. Follow-up after discharge. Medications prescribed at discharge. Risk factors for stroke. Warning signs and symptoms of stroke. Patient given written Epic Supply handouts: Risk Factors for Stroke Symptoms of a Stroke Discharge Instructions for Stroke Discharge Instructions for Transient Ischemic Attack (TIA) When to Use the Emergency Room (ER) Stroke: Taking Medications Make sure to bring the following items to your neuro follow-up appointment: (use the lines below as a check list when preparing for follow-up appointment) Medication list and medications in their bottles Copy of discharge instructions Any outside records Copies of any outside images Family member or friend A list of any questions you may have Stroke Support Group Information: When: FIRST Tuesday of each month Time: 1:00 pm Where: As of August 10, 2020, support group is virtual via SpanDeX Who: Open to public (any Stroke Survivor, family member, or caregiver) Info: For more information and WebEx Link, please call Luna Canas OT at [phone] IF YOU HAVE ANY OF THE FOLLOWING SYMPTOMS, CALL 911 IMMEDIATELY. BE FAST Balance - Loss of balance, headache or dizziness Eyes - Blurred vision Face - One side of the face is drooping. Arms - Arm or leg weakness Speech - Speech difficulty Time - Time to call for ambulance immediately Other symptoms for activating EMS (232): - Fever - Coma or change in mental status - Seizure - Change in bladder or bowel - New or worsening pain (specify where pain is located) - Paralysis or partial paralysis - Trouble breathing - Trouble swallowing - Change in vision SPECIAL INSTRUCTIONS Central Venous Catheter You have had a central venous catheter placed - a small, soft tube that is placed in a vein in yourneck or chest. It is often used when medications or nutrition need to be given over a period of weeks or even months. Having a central venous catheter means you will not need to use an IV and have itreplaced every few days. A nurse or other healthcare provider will work with you and your family to teach you what you need to do. These instructions will help you remember what to do when you are at home. If your skin turns black around the exit site of your body, this is normal for antibiotic coated catheters. Some of the excessive or extra coating on them will rub off onto the skin. This substance will cause no harm and is expected. Home Care Dressing changes are managed by visiting nurse service/infusion center department. If you experience pain or discomfort at the incision sites, you may apply a cold pack to the site, or take Tylenol or your usual pain medication. If the discomfort does not get better or there is redness or drainage from the site, notify your physician. When showering, please cover your incisions and/or exit site of catheter from skin with plastic wrap to avoid getting them wet. Do not soak in the bathtub. When to Call Interventional Radiology Call Interventional Radiology right away if you have any of the following: Fever above 100 degrees Fahrenheit Increased bleeding, redness, swelling, warmth, or discharge at the incision site. Constant or increasing pain, numbness, coldness, or tingling around the incision area. If at any time you experience any of the following or feel you are having a medical emergency, [id number] for emergency assistance. Chest Pain Sudden, severe shortness of breath Rapid heart rate Sudden onset of weakness Coughing up blood Do not smoke or use tobacco products in any way! If you feel suicidal or homicidal, please call the crisis hotline at [phone] ([phone]). documented in this encounter Progress Notes * Loulou Dickens MD - 06/27/2024 11:33 AM EST [facility] A471/A IP Therapeutic Plasma Exchange Procedure Note The patient requires therapeutic plasma exchange for Myasthenia gravis with exacerbation, adult form (HCC). Current treatment schedule: second of a scheduled five (06/27) Filed Vitals: BP: 120 mmHg/54 mmHg (06/27/241099) Pulse: 74 (06/27/241099) Resp: 18 (06/27/241099) Temp: 36 C (06/27/241099) Temp Summary: Temp Min: 35.7 C (96.3 F) Max: 37 C (98.6 F) SpO2: 98 % (06/27/24 1100) O2 flow rate: Supplemental O2 Delivery: Room Air, None (06/27/241099) Limited Physical Exam: General: NAD Relevant current (06/27/2024) laboratory results: WBC Date Value Ref Range Status 06/27/2024 10.57 4.00 - 10.80 K/uL Final HGB Date Value Ref Range Status 06/27/2024 15.3 14.0 - 16.8 g/dL Final HCT Date Value Ref Range Status 06/27/2024 45.2 40.0 - 48.4 % Final PLT Date Value Ref Range Status 06/27/2024 211 140 - 400 K/uL Final ABO Date Value Ref Range Status 06/24/2024 A Final 06/24/2024 A Final RH Date Value Ref Range Status 06/24/2024 Positive Final 06/24/2024 Positive Final Date Value Ref Range Status 06/24/2024 Negative Final Number of plasma volumes exchanged: 1.0 Access: Dialysis Catheter: Continued need for apheresis There were no complications during the procedure. I evaluated the patient for this procedure and was available throughout the duration of the procedure. * Loulou Dickens MD - 06/26/2024 9:08 AM EST [facility] A471/A IP Therapeutic Plasma Exchange Procedure Note The patient requires therapeutic plasma exchange for Myasthenia gravis with exacerbation, adult form (HCC). Current treatment schedule: First out of a scheduled series of five (05/27) plasma exchanges Filed Vitals: BP: 128 mmHg/62 mmHg (06/26/24614) Pulse: 75 (06/26/24614) Resp: 18 (06/26/24614) Temp: 36.72 C (06/26/24614) Temp Summary: Temp Min: 36.2 C (97.2 F) Max: 37.2 C (99 F) SpO2: 94 % (06/26/24614) O2 flow rate: Supplemental O2 Delivery: Room Air, None (06/26/24807) Limited Physical Exam: General: NAD Relevant current (06/26/2024) laboratory results: WBC Date Value Ref Range Status 06/26/2024 12.63 (H) 4.00 - 10.80 K/uL Final HGB Date Value Ref Range Status 06/26/2024 16.5 14.0 - 16.8 g/dL Final HCT Date Value Ref Range Status 06/26/2024 49.2 (H) 40.0 - 48.4 % Final PLT Date Value Ref Range Status 06/26/2024 245 140 - 400 K/uL Final ABO Date Value Ref Range Status 06/24/2024 A Final 06/24/2024 A Final RH Date Value Ref Range Status 06/24/2024 Positive Final 06/24/2024 Positive Final Date Value Ref Range Status 06/24/2024 Negative Final Number of plasma volumes exchanged: 1.0 Access: Dialysis Catheter: Continued need for apheresis There were no complications during the procedure. I evaluated the patient for this procedure and was available throughout the duration of the procedure. * Kyle Berger MD - 06/26/2024 8:58 AM EST Progress Note - Neurology [facility] [address] Name: Giorgio Sosa [place] [facility] A545/A Date: 06/24/2024 Time: 9:21 AM HPI: 74 yo male with Hx of AChR Ab +ve Myasthenia Gravis on Vyvgart every 53 days - known to [facility] (Follows with Dr Wright) presents as a transfer from [facility] for having exacerbation of myasthenic symptoms including worsening ptosis, dysphagia, dyspnea and fatigue. Neurology was consulted for management of possible Myasthenic crisis. INTERVAL HISTORY - TDH placed 06/25, continuing on Mestinon and Prednisone. Dysphasia still present. - Planned for Plex 5 sessions, initiated Mon. - On interview today: notes he is feeling better. Ptosis improved, still wearing eye patch. PHYSICAL EXAMINATION: Most Recent Vital Signs: BP: 128 mmHg/62 mmHg (06/26/24614) Pulse: 75 (06/26/24614) Resp: 18 (06/26/24614) Temp: 36.72 C (06/26/24614) Temp Summary: Temp Min: 36.2 C (97.2 F) Max: 37.2 C (99 F) SpO2: 94 % (06/26/24614) O2 flow rate: Supplemental O2 Delivery: Room Air, None (06/26/2408) Weight: 86 kg (189 lb 8 oz) (06/26/24311) Height: 170.2 cm (5' 7") (06/24/24 0928) Body mass index is 29.68 kg/m. Vital Signs Last 24 Hours: Systolic BP: Most Recent Systolic BP Av.9 mmHg Min: 115 mmHg Max: 156 mmHg Temperature: Most Recent Temperature Av.7 C Min: 36.22 C Max: 37.22 C Pulse: Pulse Av.3 Min: 70 Max: 117 Respirations: Resp Av.1 Min: 13 Max: 27 SpO2: SpO2 Av.2 % Min: 92 % Max: 98 % General Examination: Constitutional: Appearance well groomed and in bed Head/face, ears, nose, throat: normocephalic, atraumatic, right eye covered with eye patch Cardiovascular: regular rate Psychiatric: normal judgement and insight, normal mood, and normal affect Neurologic Examination: Ophthalmoscopic: deferred due to suboptimal dilation Mental Status and Orientation: awake, alert, oriented x 3 Memory: intact to recent and remote recall Attention: normal Knowledge:normal Language: no aphasia Speech: normal Cranial Nerves: CN 2 - pupils round, equal, reactive to light and double vision in primary gaze CN 3, 4, 6 - extra-ocular movements intact, no nystagmus, and right eye moderate ptosis CN 5 - facial sensation intact V1-3 CN 7 - no facial asymmetry CN 8 - intact hearing CN 9, 10 - palate symmetric, uvula midline, no deviation CN 11 - shoulder shrug full strength CN 12 - tongue protrudes midline Sensory: intact to light touch Coordination: intact with finger to nose testing Gait: deferred due to fall risk Muscle Tone: normal Muscle exam: strength 5/5 upper and lower extremities and no drift Reflexes: Brachioradialis Biceps Triceps Patellar Achilles Plantars Kathleen's Right 2+ 2+ 2+ 3+ 2+ withdrawals not present Left 2+ 2+ 2+ 2+ (brisk) 2+ downgoing not present stable Laboratory Values: reviewed. -- Brief labs below include the 7 most recent results over the past week. Blood Gas: Lab results within last 7 days (see chart for full results) Units 06/24/24 1305 06/24/24 1006 pH, Arterial units 7.406 -- pCO2, Arterial mmHg 41.2 -- pO2, Arterial mmHg 89.3 -- Base Excess, Arterial mmol/L 1.0 -- pH, Venous units -- 7.351 pCO2, Venous mmHg -- 54.9 pO2, Venous mmHg -- 26.7 Base Excess, Venous mmol/L -- 2.9* FiO2 % Not Provided -- Chemistry Panel: Lab results within last 7 days (see chart for full results) Units 06/26/24 0642 06/25/24 0356 06/24/24 1006 SODIUM mmol/L 144 143 144 POTASSIUM mmol/L 3.9 3.9 3.9 CHLORIDE mmol/L 112* 108* 108* CO2 mmol/L 21* 25 27 EGFR mL/min 78 79 76 BUN mg/dL 28* 22* 13 CREATININE mg/dL 1.0 1.0 1.0 GLUCOSE mg/dL 108 88 82 CALCIUM mg/dL 8.3* 9.1 8.8 Magnesium mg/dL 2.5 2.7* 2.4 Phosphorus mg/dL 3.0 3.5 2.3* ANION GAP mmol/L 11 10 9 Complete Blood Count: Lab results within last 7 days (see chart for full results) Units 06/26/24 0642 06/25/24 0356 06/24/24 1006 WBC K/uL 12.63* 8.81 9.95 HGB g/dL 16.5 15.4 15.7 HCT % 49.2* 48.1 48.5* PLT K/uL 245 265 280 MCV fL 93.9 95.6 96.0 Cardiac Studies: Lab results within last 7 days (see chart for full results) Units 06/24/24 1006 Troponin T, High Sensitivity ng/L 16 Coagulation Studies: No results in the last 7 days - inpatent use only Liver Function Panel: Lab results within last 7 days (see chart for full results) Units 06/24/24 1006 Albumin g/dL 4.2 Protein g/dL 6.9 Bilirubin, Total mg/dL 0.9 Bilirubin, Direct mg/dL 0.3 AST U/L 34 ALT U/L 32 Alkaline Phosphatase U/L 33* Infectious Studies: Lab results within last 7 days (see chart for full results) Units 06/24/24 1006 Lactate mmol/L 1.1 Procalcitonin ng/mL 0.08 Cultures: reviewed. No results in the last 7 days - inpatent use only Recent Cultures (2 Weeks) No lab values to display. Radiographic Studies (last 72 hours): reviewed. No imaging results in the last 72 hours Prior Imaging: CT Chest with contrast 06/06/23: "IMPRESSION 1. No evidence of thymoma or other suspicious finding involving the chest. 2. Trace right pleural effusion." RESPIRATORY MECHANICS: Last 24 hours Vital Capacity: Patient Vitals for the past 24 hrs: Vital Capacity (L) 06/26/24 0548 1.9 L 06/25/24 2247 1.76 L 06/25/24 1646 2.06 L 06/25/24 1036 2.12 L Negative Inspiratory Pressure: Patient Vitals for the past 24 hrs: Negative Inspiratory Pressure (cmH2O) 06/26/24 0548 -60 cmH2O 06/25/24 2247 -60 cmH2O 06/25/24 1646 -34 cmH2O 06/25/24 1036 -34 cmH2O Positive Expiratory Pressure: Patient Vitals for the past 24 hrs: Positive Expiratory Pressure (cmH2O) 06/26/24 0548 55 cmH2O 06/25/24 2247 60 cmH2O 06/25/24 1646 60 cmH2O 06/25/24 1036 60 cmH2O IMPRESSION: Giorgio Sosa is 74 year old gentleman with Hx of AChR Ab 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 Last Vyvgart infusion on 06/22/24 and on the same day he stopped being able to swallow medications and had wrosening fatigue/SOB which has been a progressive decline since once month. Now s/p 1 dose of IVIG at [facility] however he has been unresponsive to IVIG in the past requiringPLEX. Reasonable to start PLEX considering this a flare with impending myasthenic crisis. RecommendPLEX via TDC for atleast 5 sessions, if improvement seen especially with swallowing may be able to complete some sessions as outpatient. Lastly, okay to continue Prednisone 30 mg daily and Mestinon 60 mg Q6H as long as patient is able to handle secretions. Myasthenic Exacerbation 2/2 Prednisone Taper - continue PLEX per Laboratory Medicine protocol, at least 5 sessions planned, but likely could go home once dysphagia improves. - Transferred to floor overnight. Resp Mechanics: as above. - cont. Prednisone 30 mg per day, cont. Mestinon 60 mg Q6H - please Monitor for signs of infection or metabolic derangements - Avoid medications which exacerbate MG such as aminoglycoside, beta blockers, IV Magnesium and Penicillamine. - tube placement recheck with XR today, needs RVP given continued secretions. Can also consider initiating anticholinergic to help with these as well. - PT/OT/ST following, will need repeat swallow today/tomorrow to evaluate PLEX impact. CHRONIC CONDITIONS - HTN - not currently on medications MISC -Diet: NG Tube w/ Nutren 1.5, 20 m;/hr -Stress Ulcer ppx: None -Bowel Regimen: Senna, colace, miralax;| Last BM 06/26 -Sleep: None -Corrigan: None -Rehab: PT/OT--recs: following -VTE ppx: Heparin -Code Status: FULL -Disposition: Med-Surg; inpt until resolutoin of sx. Feeding Tube Dobhoff Right Nostril (Active) Number of days: Peripheral Line Left;Upper Arm 20 Gauge (Active) Number of days: 3 Peripheral Line Right;Upper Arm 20 Gauge (Active) Number of days: 3 Dialysis Catheter Double Lumen Right Internal jugular (Active) Number of days: 1 EXPECTED DISCHARGE DATE: 2 days or more DISCHARGE NEEDS: - f/u in clinic post discharge Patient was dicussed with attending Neurologist, Dr. Margoth Villanueva "Cody" MD Ab, [facility], PGY-3 Cosigned by Farrah Justin DO at 06/27/2024 6:49 AM EST Associated attestation - Farrah Justin DO - 06/27/2024 6:49 AM EST I saw and evaluated the patient 06/26/24. I have reviewed the resident/fellow physician note and agree. MG exacerbation s/p 1 of 5 PLEX with sx improvement. Additional findings on my exam: neck flexion and extension 5/5, tongue strength 5/5 on R, 4+/5 on L; minor orobuccal weakness with puffing out cheeks. Single breath count 40. Sustained upgaze 20+ seconds. Chronic vertical diplopia, wears R eye patch. Plan: c/t PLEX for total of 5 treatments. 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 Farrah Justin DO * Sharifa Stewart DO - 06/25/2024 3:09 PM EST CCM - PROGRESS NOTE [facility] [address] Name: Giorgio Sosa Location: RADIOLOGY WAITING ROOM/IR Date: 06/25/2024 Time: 3:09 PM Date of admission: 06/24/2024 Hospital length of stay: 1 days Subjective PATIENT DESCRIPTION: The patient is a 74 year old male pmh MG, BPH, prostate cancer presented to [facility] for evaluation of difficulty swallowing, ptosis of his right eyelid, and diplopia progressively worsening forthe past month in the setting of self-tapering prednisone over the pat two months. Patient was started on IVIG and transferred to [facility] [place] evaluation and treatment. INTERIM HISTORY / SUBJECTIVE: No acute events overnight. Patient reports no change to his dysphagia, denies feeling short of breath. He states that his ptosis is better this morning but his diplopia is unchanged. Denies nausea orvomiting. Denies any new weakness. Denies feeling any increased work of breathing. Objective CONSTITUTIONAL DATA / OBJECTIVE: Vital Signs (Most Recent): Pulse: 88 (06/25/24 1500) BP: 133/60 (06/25/24 1500) Resp: 20 (06/25/24 1500) Temp: 36.6 C (97.9 F) (06/25/24 1200) SpO2: 94 % (06/25/24 1500) Vital Signs (Last 24 Hours): Pulse Av.7 Min: 52 Max: 90 No data recorded Most Recent Systolic BP Av.1 mmHg Min: 95 mmHg Max: 160 mmHg Most Recent Diastolic BP Av.4 mmHg Min: 46 mmHg Max: 98 mmHg Resp Av.6 Min: 13 Max: 29 Most Recent Temperature Av.2 C Min: 36 C Max: 36.61 C SpO2 Av.5 % Min: 90 % Max: 100 % Intake & Output Summary (Last 24 hours): Intake/Output Summary (Last 24 hours) at 06/25/2024 1509 Last data filed at 06/25/2024 1200 Gross per 24 hour Intake 250 ml Output 800 ml Net -550 ml Net IO Since Admission: -925 mL [06/25/24 1509] Height & Weight: Height: 170.2 cm (5' 7") (06/24/24 0928) Weight: 88.5 kg (195 lb 1.7 oz) (06/25/24 06) Weight change: Body mass index is 30.56 kg/m. Physical Examination: General: Very pleasant elderly male sitting up in the chair in no acute distress HEENT: eye patch over right eye, removal reveals normal elevation of eyelids bilaterally, NG tube in place CV: regular rate and rhythm, no murmur noted 2+ radial pulses bilaterally Resp: clear to auscultation bilaterally, good inspiratory effort Abdomen: soft, nontender to palpation Extremities: no edema noted, 2+ radial pulses bilaterally Neuro: awake, alert, oriented, answers questions appropriately Psych: appropriate affect Laboratory Values: -- Brief labs below include the 7 most recent results over the past week. Blood Gas: Lab results within last 7 days (see chart for full results) Units 06/24/24 1305 06/24/24 1006 pH, Arterial units 7.406 -- pCO2, Arterial mmHg 41.2 -- pO2, Arterial mmHg 89.3 -- Base Excess, Arterial mmol/L 1.0 -- pH, Venous units -- 7.351 pCO2, Venous mmHg -- 54.9 pO2, Venous mmHg -- 26.7 Base Excess, Venous mmol/L -- 2.9* FiO2 % Not Provided -- Chemistry Panel: Lab results within last 7 days (see chart for full results) Units 06/25/24 0356 06/24/24 1006 SODIUM mmol/L 143 144 POTASSIUM mmol/L 3.9 3.9 CHLORIDE mmol/L 108* 108* CO2 mmol/L 25 27 EGFR mL/min 79 76 BUN mg/dL 22* 13 CREATININE mg/dL 1.0 1.0 GLUCOSE mg/dL 88 82 CALCIUM mg/dL 9.1 8.8 Magnesium mg/dL 2.7* 2.4 Phosphorus mg/dL 3.5 2.3* ANION GAP mmol/L 10 9 Complete Blood Count: Lab results within last 7 days (see chart for full results) Units 06/25/24 0356 06/24/24 1006 WBC K/uL 8.81 9.95 HGB g/dL 15.4 15.7 HCT % 48.1 48.5* PLT K/uL 265 280 MCV fL 95.6 96.0 Cardiac Studies: Lab results within last 7 days (see chart for full results) Units 06/24/24 1006 Troponin T, High Sensitivity ng/L 16 Coagulation Studies: No results in the last 7 days - inpatent use only Liver Function Panel: Lab results within last 7 days (see chart for full results) Units 06/24/24 1006 Albumin g/dL 4.2 Protein g/dL 6.9 Bilirubin, Total mg/dL 0.9 Bilirubin, Direct mg/dL 0.3 AST U/L 34 ALT U/L 32 Alkaline Phosphatase U/L 33* Infectious Studies: Lab results within last 7 days (see chart for full results) Units 06/24/24 1006 Lactate mmol/L 1.1 Procalcitonin ng/mL 0.08 Radiographic Studies: No imaging results in the last 72 hours Cultures: Recent Cultures (2 Weeks) No lab values to display. 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 Continue trickle feeds as able RENAL / METABOLIC / FLUIDS: No acute concerns Monitor electrolytes at least daily. Replete electrolytes as indicated Strict monitoring of fluid intake and output Renal dosing and medication considerations adjusted for glomerular filtration rate Daily weights INFECTIOUS DISEASES: No acute concerns ENDOCRINE: No acute concerns Blood Glucose Monitoring (BGM) Goal: 140-180 Most recent: Last 24 hours: No data recorded Last 36 hours: No data recorded Last 48 hours: No data recorded HEMATOLOGIC: No acute concerns VTE/DVT Prophylaxis: heparin Daily CBC MUSCULOSKELETAL / DERMATOLOGIC / P.T / O.T. / MOBILITY: Myasthenia gravis crisis PT/OT as able LINES / DRAINS / TUBES: LINES ALL Duration Feeding Tube Dobhoff Right Nostril -- days Peripheral Line Left;Upper Arm 20 Gauge 2 days Peripheral Line Right;Upper Arm 20 Gauge 2 days Dialysis Catheter Double Lumen Right Internal jugular <1 day Patient's decisional capacity: has capacity to make decisions Communication with Patient/Family: Patient updated at bedside regarding plan. Patient was seen and discussed on rounds with Dr. Lorna Streeter Cosigned by Fer Marcum MD at 06/25/2024 4:19 PM EST Associated attestation - Fer Marcum MD - 06/25/2024 4:19 PM EST I saw and evaluated the patient today. I have reviewed the resident/fellow physician note and agree. Admitted with myasthenia crisis. Neurology and lab medicine on board. Obtained access for plasmapheresis session with TDC with the help of IR today. Monitor respiratory mechanics (NIF poor effort -25). Overall patient feels okay but still having dysphagia. Keep on Mestinon and prednisone. Monitor respiratory and neurological status closely in the ICU. Disposition: Keep in ICU. I have provided critical care diagnostic services for neurologic failure, respiratory failure and therapeutic services with neurological monitoring and treatment, frequent evaluation and titration oftherapies, extensive interpretation of multiple databases for this patient on the date referenced ab ove. Time devoted to patient care services described in this note equal: 35 minutes total critical care time exclusive of time spent performing procedures or time spent by another provider or resident. * Gray Buckner DO - 06/25/2024 7:22 AM EST Progress Note - Neurology [facility] [address] Name: Giorgio Sosa [place] [facility] [place]545[place] Date: 06/24/2024 Time: 9:21 AM REQUESTING SERVICE: Critical Care Medicine REASON FOR CONSULT: Myasthenia Crisis HPI: 74 year old male with Hx of AChR Ab +ve Myasthenia Gravis on Vyvgart every 53 days - known to [facility] Neurology (Follows with Dr Wright) presents as a transfer from [facility] for having exacerbation of myasthenic symptoms including worsening ptosis, dysphagia, dyspnea and fatigue. Neurology was consulted for management of possible Myasthenic crisis. Changes since last visit: No TDC placed by IR, recommended temp line which has not been placed. No sessions of Plex sessions yet. PAST MEDICAL HISTORY: Past Medical History: Diagnosis Date Allergic disorder Allergy unspecified Allergic rhinitis due to pollen BPH with obstruction/lower urinary tract symptoms 06/30/2011 FAMILY HX MALIG.NEOPLASM PROSTATE 01/19/2001 Migraine Migraines,unspecified Prostate cancer (HCC) 04/28/2015 t1c Small volume sayda 6 PAST SURGICAL HISTORY: Past Surgical History: Procedure Laterality Date COLONOSCOPY, DIAGNOSTIC (RECTUM) 04/10/2015 adenomatous & hyperplastic polyps, diverticulosis, repeat 5 yrs/COLONOSCOPY FLEXIBLE PROXIMAL DIAGNOSTIC performed by Anjelica Lucas DO at ENDOSCOPY [facility] COLONOSCOPY, DIAGNOSTIC (RECTUM) 05/26/2020 adenomatous polyp, repeat 5 yrs / COLONOSCOPY FLEXIBLE PROXIMAL DIAGNOSTIC performed by Anjelica Lucas DO at ENDOSCOPY [facility] COLONOSCOPY, GI REFERRAL OP 2004 wnl-repeat 10 yrs COLORECTAL CANCER SCREEN;W/FLE 10/1998 wnl DENTAL SURGERY PROCEDURE NEC Dental Surgery Procedure IR APHERESIS ACCESS 03/15/2023 NEEDLE/PUNCH BIOPSY OF PROSTATE 04/21/2015 Prostate,Needle/Punch Biopsy REMOV ELSIE HOMERO JAZMINE ACC DEV,WITH N/A 01/06/2024 REMOVAL OF TUNNELED CENTRAL VENOUS ACCESS DEVICE WITH PORT performed by Osvaldo Aden MD at OR [facility] REMOVE CATARACT, INSERT LENS PROSTH Right 02/02/2024 RIGHT EXTRACAPSULAR CATARACT REMOVAL WITH INTRAOCULAR LENS performed by Andre Swartz MDat OR [facility] REMOVE CATARACT, INSERT LENS PROSTH Left 02/16/2024 LEFT EXTRACAPSULAR CATARACT REMOVAL WITH INTRAOCULAR LENS performed by Andre Swartz MD at OR [facility] REMOVE TONSILS & ADENOIDS, AGE 12+ SKIN LESIONS BIOPSY,ADDED 05/02/2018 chest area basal cell removed by Dr Mejia FAMILY HISTORY: Family History Problem Relation Name Age of [...] Known Problems Other No Known Problems Son SOCIAL HISTORY: Social History Tobacco Use Smoking status: Never Passive exposure: Past Smokeless tobacco: Never Tobacco comments: Mother smoked around as child no current passive smoke exposure Vaping Use Vaping status: Never Used Substance Use Topics Alcohol use: Not Currently Comment: occ Drug use: No ALLERGIES: Merthiolate [benzalkonium chloride] and Milk [milk (cow)] CURRENT MEDICATIONS: Note that completed medications (per the MAR) continue to display for 24 hours. Ordered medicationsto be given in the future also display. Current Facility-Administered Medications Medication Dose Route Frequency Provider Acetaminophen (Tylenol) tab 650 mg 650 mg NG Tube Q4H PRN Christianoar Sharifa, DO chlorHEXIDINE (Periogard) 0.12 % oral rinse 15 mL 15 mL Oral mucosal membrane BID (799,1999) Niki Nation DO hEParin inj 5,000 Units 5,000 Units Subcutaneous Q8H Niki Nation DO Mirtazapine (Remeron) tab 15 mg 15 mg NG Tube HS Niki Nation DO Nutren 1.5 liquid 20 mL/hr Tube feed Continuous Niki Nation DO Oral Hygiene: Mouth Swab with dentifrice Oral Q4H Limited (00;04;12;16) Niki Nation DO oxygen GAS Inhalation Oxygen Niki Nation DO predniSONE (Deltasone) tab 30 mg 30 mg NG Tube Daily(AM) Niki Nation, pyRIDostigmine (Mestinon) tab 60 mg 60 mg NG Tube Q6H Sharifa Stewart, DO sodium chloride 0.9 % flush peripheral luisana 3 mL 3 mL IV Push Q8H Niki Nation DO ROS: All negative other than as noted in HPI PHYSICAL EXAMINATION: Most Recent Vital Signs: BP: 134 mmHg/50 mmHg (06/25/24 07) Pulse: 70 (06/25/24 07) Resp: 25 (06/25/24699) Temp: 36.22 C (06/25/24599) Temp Summary: Temp Min: 36 C (96.8 F) Max: 36.2 C (97.2 F) SpO2: 95 % (06/25/24 07) O2 flow rate: Supplemental O2 Delivery: Weight: 88.5 kg (195 lb 1.7 oz) (06/25/24 06) Height: 170.2 cm (5' 7") (06/24/24 09) Body mass index is 30.56 kg/m. Vital Signs Last 24 Hours: Systolic BP: Most Recent Systolic BP Av.7 mmHg Min: 95 mmHg Max: 145 mmHg Temperature: Most Recent Temperature Av.1 C Min: 36 C Max: 36.22 C Pulse: Pulse Av.2 Min: 52 Max: 89 Respirations: Resp Av.1 Min: 15 Max: 29 SpO2: SpO2 Av % Min: 90 % Max: 100 % General Examination: Constitutional: Appearance well groomed and in bed Head/face, ears, nose, throat: normocephalic, atraumatic, right eye covered with eye patch Cardiovascular: regular rate Psychiatric: normal judgement and insight, normal mood, and normal affect Neurologic Examination: Ophthalmoscopic: deferred due to suboptimal dilation Mental Status and Orientation: awake, alert, oriented x 3 Memory: intact to recent and remote recall Attention: normal Knowledge:normal Language: no aphasia Speech: mild dysarthria per patient however grossly intelligible speech Cranial Nerves: CN 2 - pupils round, equal, reactive to light and double vision in primary gaze CN 3, 4, 6 - extra-ocular movements intact, no nystagmus, and right eye severe ptosis CN 5 - facial sensation intact V1-3 CN 7 - no facial asymmetry CN 8 - intact hearing CN 9, 10 - palate symmetric, uvula midline, no deviation CN 11 - shoulder shrug full strength CN 12 - tongue protrudes midline Sensory: intact to light touch Coordination: intact with finger to nose testing Gait: deferred due to fall risk Muscle Tone: normal Muscle exam: strength 5/5 upper and lower extremities and no drift Reflexes: Brachioradialis Biceps Triceps Patellar Achilles Plantars Kathleen's Right 2+ 2+ 2+ 3+ 2+ withdrawals not present Left 2+ 2+ 2+ 2+ (brisk) 2+ downgoing not present Laboratory Values: reviewed. -- Brief labs below include the 7 most recent results over the past week. Blood Gas: Lab results within last 7 days (see chart for full results) Units 06/24/24 1305 06/24/24 1006 pH, Arterial units 7.406 -- pCO2, Arterial mmHg 41.2 -- pO2, Arterial mmHg 89.3 -- Base Excess, Arterial mmol/L 1.0 -- pH, Venous units -- 7.351 pCO2, Venous mmHg -- 54.9 pO2, Venous mmHg -- 26.7 Base Excess, Venous mmol/L -- 2.9* FiO2 % Not Provided -- Chemistry Panel: Lab results within last 7 days (see chart for full results) Units 06/25/24 0356 06/24/24 1006 SODIUM mmol/L 143 144 POTASSIUM mmol/L 3.9 3.9 CHLORIDE mmol/L 108* 108* CO2 mmol/L 25 27 EGFR mL/min 79 76 BUN mg/dL 22* 13 CREATININE mg/dL 1.0 1.0 GLUCOSE mg/dL 88 82 CALCIUM mg/dL 9.1 8.8 Magnesium mg/dL 2.7* 2.4 Phosphorus mg/dL 3.5 2.3* ANION GAP mmol/L 10 9 Complete Blood Count: Lab results within last 7 days (see chart for full results) Units 06/25/24 0356 06/24/24 1006 WBC K/uL 8.81 9.95 HGB g/dL 15.4 15.7 HCT % 48.1 48.5* PLT K/uL 265 280 MCV fL 95.6 96.0 Cardiac Studies: Lab results within last 7 days (see chart for full results) Units 06/24/24 1006 Troponin T, High Sensitivity ng/L 16 Coagulation Studies: No results in the last 7 days - inpatent use only Liver Function Panel: Lab results within last 7 days (see chart for full results) Units 06/24/24 1006 Albumin g/dL 4.2 Protein g/dL 6.9 Bilirubin, Total mg/dL 0.9 Bilirubin, Direct mg/dL 0.3 AST U/L 34 ALT U/L 32 Alkaline Phosphatase U/L 33* Infectious Studies: Lab results within last 7 days (see chart for full results) Units 06/24/24 1006 Lactate mmol/L 1.1 Procalcitonin ng/mL 0.08 Cultures: reviewed. No results in the last 7 days - inpatent use only Recent Cultures (2 Weeks) No lab values to display. Radiographic Studies (last 72 hours): reviewed. No imaging results in the last 72 hours Prior Imaging: CT Chest with contrast 06/06/23: "IMPRESSION 1. No evidence of thymoma or other suspicious finding involving the chest. 2. 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 Last Vyvgart infusion on 06/22/24 and on the same day he stopped being able to swallow medications and had wrosening fatigue/SOB which has been a progressive decline since once month. Now s/p 1 dose of IVIG at [facility] however he has been unresponsive to IVIG in the past requiring PLEX. Reasonable to start PLEX considering this a flare with impending myasthenic crisis. Physical exam pertinent for severe right eye ptosis and mild dysarhtria. Currently has an NG tube placed at OSH for medication administration and will require a formal speech eval. Resp mechanics currently with TERRI -25, VC 1.38L. Recommend PLEX via TDC for atleast 5 sessions, if improvement seen especially with swallowing may be able to complete some sessions as outpatient. Lastly, okay to continue Prednisone 30 mg daily and Mestinon 60 mg Q6H as long as patient is able to handle secretions. RECOMMENDATIONS / PLAN: - Plan remains the same today as previous: goal for first PLEX session today. - Issues remain with access, if able to place TDC w/ IR and patient continues to improve after first session, may plan for outpatient completion of sessions. If unable to get TDC, would opt for temporary line in order to start PLEX. - ICU monitoring for now with respiratory mechanics q6h and neuro checks q4h, if he continues to display improvement okay for transfer to General Neurology floor - PLEX for atleast 5 sessions - Cont Prednisone 30 mg per day - Cont Mestinon 60 mg Q6H - Monitor for signs of infection or metabolic derangements - Avoid medications which exacerbate MG such as aminoglycoside, beta blockers, IV Magnesium and Penicillamine. - Neurology will follow - Please reach out with questions/concerns via TT Patient was staffed with Dr Berry MD the attending neurologist at the time of patient encounter on 06/25/2024 Gray Buckner DO Internal Medicine, PGY-2 Cosigned by Jessi Smart MD at 06/25/2024 12:07 PM EST Associated attestation - Jessi Smart MD - 06/25/2024 12:07 PM EST I saw and evaluated the patient today. I have reviewed the resident/fellow physician note and agree. Patient with well-documented antibody positive gMG on Vyvgart (most recently 06/22/2024) and prednisone, who has been experiencing worsening of symptoms since prednisone was decreased in April 2024. Despite increasing prednisone and addition of mestinon, patient continued to have worsening of bulbar function, and presented to [facility] over the weekend, where he received a single dose of IVIG while waiting to be transferred [place] [facility] [place]. Patient has responded to PLEX in the past, and despite the unconventional treatment regimen of starting PLEX after IVIG, shared and informed decision making with patient resulted in the decision to start PLEX. Remain in ICU at this time given difficulties with dysphagia and slightly worsening respiratory functions. documented in this encounter H&P Notes * Niki Nation DO - 06/24/2024 7:37 AM EST HISTORY & PHYSICAL EXAMINATION - Critical Care Medicine [facility] [address] Name: Giorgio Sosa Location: [facility] [place] Date: 06/24/2024 Time: 7:37 AM PRESENTING PROBLEM: Concern myasthenia gravis crisis HISTORY OF PRESENT ILLNESS: 74 yo male with PMH myasthenia gravis (diplopia, facial weakness, ptosis right eye), BPH, prostate cancer, hx basal cell cancer. Presented to OSH ED. Patient reports self tapering his prednisone overthe past 2 months lead to increased difficulty swallowing and culminated in inability to swallow which lead him to the ED. Concerns for myasthenia crisis lead patient to being started on IVIG, and recommended transfer to [facility] ICU. Neurology ICU full, [place] [facility] [place] Neurology consultedand recommended IVIG and there are discussions surrounding starting PLEX. Patient reports being on Mestinon 60mg Q4h and prednisone 30mg WD, vyvgart infusion 06/22. Elver rogers started IV Ig and transferred for plex therapy. PSH: colonoscopy, dental surgery, prostate needle punch biopsy. Bilateral cataracts. Tonsillectomy adenoidectomy. Skin lesion biopsy. Social: no smoking, alcohol occasional. No drug use. Family Hx: sister breast cancer. Hep C cured. Migraines. Father had prostate cancer, colon/bladder cancer, dementia. Mother had diabetes, HTN, pacemaker, CHF. Uncle had prostate cancer Patient report living alone, his 1 year ago, and he has 2 children. FULL CODE confirmed with patient, ok with cpr, intubation, shock, pressers. If patient should be unable to make decisions for himself, he would want his daughter Edel Blake daughter, number [phone], to make decisions for him. PAST MEDICAL HISTORY: Past Medical History: Diagnosis Date Allergic disorder Allergy unspecified Allergic rhinitis due to pollen BPH with obstruction/lower urinary tract symptoms 06/30/2011 FAMILY HX WILLIAM.NEOPLASM PROSTATE 01/19/2001 Migraine Migraines,unspecified Prostate cancer (HCC) 04/28/2015 t1c Small volume sayda 6 PAST SURGICAL HISTORY: Past Surgical History: Procedure Laterality Date COLONOSCOPY, DIAGNOSTIC (RECTUM) 04/10/2015 adenomatous & hyperplastic polyps, diverticulosis, repeat 5 yrs/COLONOSCOPY FLEXIBLE PROXIMAL DIAGNOSTIC performed by Anjelica Lucas DO at ENDOSCOPY [facility] COLONOSCOPY, DIAGNOSTIC (RECTUM) 05/26/2020 adenomatous polyp, repeat 5 yrs / COLONOSCOPY FLEXIBLE PROXIMAL DIAGNOSTIC performed by Anjelica Lucas DO at ENDOSCOPY [facility] COLONOSCOPY, GI REFERRAL OP 2004 wnl-repeat 10 yrs COLORECTAL CANCER SCREEN;W/FLE 10/1998 wnl DENTAL SURGERY PROCEDURE NEC Dental Surgery Procedure IR APHERESIS ACCESS 03/15/2023 NEEDLE/PUNCH BIOPSY OF PROSTATE 04/21/2015 Prostate,Needle/Punch Biopsy REMOV ELSIE HOMERO JAZMINE ACC DEV,WITH N/A 01/06/2024 REMOVAL OF TUNNELED CENTRAL VENOUS ACCESS DEVICE WITH PORT performed by Osvaldo Aden MD at OR [facility] REMOVE CATARACT, INSERT LENS PROSTH Right 02/02/2024 RIGHT EXTRACAPSULAR CATARACT REMOVAL WITH INTRAOCULAR LENS performed by Andre Swartz, [facility] OR [facility] REMOVE CATARACT, INSERT LENS PROSTH Left 02/16/2024 LEFT EXTRACAPSULAR CATARACT REMOVAL WITH INTRAOCULAR LENS performed by Andre Swartz MD at OR [facility] REMOVE TONSILS & ADENOIDS, AGE 12+ SKIN LESIONS BIOPSY,ADDED 05/02/2018 chest area basal cell removed by Dr Mejia FAMILY HISTORY: non-contributory Family History Problem Relation Name Age of [...] Known Problems Other No Known Problems Son SOCIAL HISTORY: Social History Tobacco Use Smoking status: Never Passive exposure: Past Smokeless tobacco: Never Tobacco comments: Mother smoked around as child no current passive smoke exposure Vaping Use Vaping status: Never Used Substance Use Topics Alcohol use: Not Currently Comment: occ Drug use: No PRIOR TO ADMISSION MEDS: Current Outpatient Medications Medication Instructions alendronate (FOSAMAX) 70 mg, Oral, QWEEK, with 8 oz. water 30 minutes before first meal of the day.Remain upright for 30 min after taking tablet ALEVE 220 MG PO CAPS as needed Calcium-Vitamin D-Minerals 600-400 MG-UNIT Oral Tablet Chewable Take 1 tablet in the morning daily FIBER ADULT GUMMIES 2 g CHEW 2 Each, Daily(AM) Finasteride (PROSCAR) 5 mg, Oral, Daily(AM) Fluticasone Propionate 50 MCG/ACT Nasal Suspension 1 [place], Daily(AM) Ketoconazole 2 % External Cream Apply to dry skin on forehead, nose once daily Mirtazapine (REMERON) 15 mg, Oral, HS predniSONE (DELTASONE) 20 mg, Oral, Daily(AM) predniSONE (DELTASONE) 20 mg, Oral, Daily(AM) pyRIDostigmine (MESTINON) 60 mg, Oral, TID(AM/NOON/HS) Scopolamine 1 MG/3DAYS Transdermal Patch 72 Hour (Transderm-Scop) Place 1 patch topically on the skin for 72 hours maximum. May replace every 3 days. SUMAtriptan Succinate 100 MG Oral Tablet TAKE 1 TABLET AT ONSET OF MIGRAINE. MAY REPEAT IN 2 HOURS BUT NOT MORE. tamsulosin (FLOMAX) 0.4 mg, Oral, Daily(AM) Triamcinolone Acetonide 0.5 % External Cream APPLY TO AFFECTED AREAS TWICE DAILY. ALLERGIES: Merthiolate [benzalkonium chloride] and Milk [milk (cow)] ROS: See HPI CONSTITUTIONAL DATA / OBJECTIVE: Vital Signs (Most Recent): Pulse: 64 (06/24/24 1000) BP: 132/57 (06/24/24 1000) Resp: 23 (06/24/24 1000) Temp: 36 C (96.8 F) (06/24/24 0915) SpO2: 98 % (06/24/24 1000) Vital Signs (Last 24 Hours): Pulse Av.5 Min: 63 Max: 64 Most Recent Systolic BP Av mmHg Min: 132 mmHg Max: 136 mmHg Resp Av.5 Min: 20 Max: 23 Most Recent Temperature Av C Min: 36 C Max: 36 C SpO2 Av % Min: 98 % Max: 100 % Oxygen: RA Intake & Output Summary (Last 24 hours): No intake or output data in the 24 hours ending 06/24/24 0737 Net IO: No IO data has been entered for this period [06/24/24 0737] Height & Weight: Height: 170.2 cm (5' 7") (06/24/24927) Weight: 86 kg (189 lb 9.5 oz) (06/24/24 09) Wt Readings from Last 3 Encounters: 06/24/24 86 kg (189 lb 9.5 oz) 06/22/24 87.5 kg (193 lb) 04/09/24 89.4 kg (197 lb 0.6 oz) Weight change: Body mass index is 29.69 kg/m. Physical Examination: Constitutional: no acute distress, nontoxic appearing, alert. Head: normocephalic, atraumatic. Eyes: extraocular movements intact, right eye ptosis unable to assess. Cardiovascular: normal rate, regular rhythm, no murmurs, rubs, or gallops. Pulmonary: no respiratory distress, symmetric chest rise, trachea midline, good air entry, no wheezes, no rales, no rhonchi. Abdomen: soft, non-distended, no abdominal tenderness even with deep palpation in all quadrants, norebound, no rigidity, no guarding, bowel sounds present. Musculoskeletal: 5/5 strength in bilateral upper and bilateral lower extremities. Neurological: awake, alert, and answering questions appropriately. Cranial nerves II-XII intact. Able to follow commands / instructions. No gaze palsy or forced deviation. Visual fernandez intact to confrontation (no hemianopia). Normal symmetric facial movements. No upper extremity drift observed after 10 seconds. No lower extremity drift observed after 5 seconds. No limb ataxia (no difficulty ophuawqbpv-duxu-kowcyv and heel-muhammad tests). No dysmetria. No dysdiadochokinesia. No decreased facial or extremity sensation. No aphasia or decreased conversational fluency. No dysarthria. No evidence ofvisual spatial neglect or anosognosia. Skin: warm, dry. Lines / Drains / Tubes: Peripheral Line Left;Upper Arm 20 Gauge (Active) Number of days: 1 Peripheral Line Right;Upper Arm 20 Gauge (Active) Number of days: 1 Laboratory Values: I have personally reviewed the results as of Blood gas venous pH 7.351 CO2 54.9 O2 26.7 Bicarb 29.6 BMP: Sodium, potassium, CO2, creatinine, calcium, magnesium WNL Chloride 108 Phosphorus 2.3 Ca, ionized 1.22 CBC: Hgb 16.6 Lactate 1.1 Procalcitonin 0.08 Troponin 16 Liver function panel WNL 05/25/24 PSA 9.49, trending up Blood Gas Lab results within last 7 days (see chart for full results) Units 06/24/24 1006 pH, Venous units 7.351 pCO2, Venous mmHg 54.9 pO2, Venous mmHg 26.7 Base Excess, Venous mmol/L 2.9* Chemistry Panel Lab results within last 7 days (see chart for full results) Units 06/24/24 1006 SODIUM mmol/L 144 POTASSIUM mmol/L 3.9 CHLORIDE mmol/L 108* CO2 mmol/L 27 BUN mg/dL 13 CREATININE mg/dL 1.0 GLUCOSE mg/dL 82 CALCIUM mg/dL 8.8 Magnesium mg/dL 2.4 Phosphorus mg/dL 2.3* Lactate mmol/L 1.1 Complete Blood Count Lab results within last 7 days (see chart for full results) Units 06/24/24 1006 WBC K/uL 9.95 HGB g/dL 15.7 HCT % 48.5* PLT K/uL 280 MCV fL 96.0 Cardiac Studies Lab results within last 7 days (see chart for full results) Units 06/24/24 1006 Troponin T, High Sensitivity ng/L 16 Coagulation Studies No results in the last 7 days - inpatent use only Liver Function Panel Lab results within last 7 days (see chart for full results) Units 06/24/24 1006 Albumin g/dL 4.2 Protein g/dL 6.9 Bilirubin, Total mg/dL 0.9 Bilirubin, Direct mg/dL 0.3 AST U/L 34 ALT U/L 32 Alkaline Phosphatase U/L 33* Toxicology Studies No results in the last 7 days - inpatent use only Radiographic Studies: I have personally reviewed the results as of 05/09/24 MRI prostate, similar sized nodule as prior. No imaging results in the last 72 hours Cultures: I have personally reviewed the results as of No results in the last 7 days - inpatent use only Recent Cultures (2 Weeks) No lab values to display. CRITICAL CARE SYSTEM REVIEW & ASSESSMENT/PLAN: Active Problems: * No active hospital problems. * POA = Present On Admission NEUROLOGIC: Myasthenia Gravis Crisis Hx Migraines Neurology Consulted Plan for plex tomorrow, obtain tunneled CVC Continue prednisone 30mg daily and pyridostigmine 60mg Q6h Monitor respiratory status closely Continue TRANSFER TABLE OPERATOR mirtazapine 15 mg QHS Hold TRANSFER TABLE OPERATOR sumatriptan prn Neuro check Q4h PULMONARY / RESPIRATORY: Myasthenia Gravis Crisis has increase risk of respiratory collapse. Monitor closely No oxygen needs Respiratory mechanics q6h Flutter, IS CARDIOVASCULAR: No acute concerns At risk for compromised 2/2 myasthenia gravis crisis Continuous cardiac monitoring GASTROINTESTINAL / HEPATOBILIARY/ : Hx Prostate Cancer BPH NG in place Diet / Nutrition: NPO. Start trickle feeds Nutren 1.5 20ml/hr Bowel Regimen: None. Stress Ulcer Prophylaxis: not indicated at this time. Continue TRANSFER TABLE OPERATOR finasteride 5mg QAM, Hold TRANSFER TABLE OPERATOR tamsulosin 0.4mg QAM due to being unable to crush, reevaluate when not longer NPO Consult speech RENAL / METABOLIC / FLUIDS: No acute concerns Serum creatinine: 1 mg/dL 06/24/24 1006 Estimated creatinine clearance: 70 mL/min Monitor electrolytes at least daily. Replete electrolytes as indicated Avoid Nephrotoxins including NSAIDS and IV contrast Strict monitoring of fluid input and output Renal dosing and medication considerations Daily weights Daily BMP, Mg, Phos INFECTIOUS DISEASES: Infectious workup for possible cause of myastenia gravis crisis not indicated at this time Pro calcitonin insignificant Daily CBC ENDOCRINE: No acute concerns Blood Glucose Monitoring (BGM) Goal: 140-180 Glycemic Control: None Point of Care Glucose (Bedside) Measurements Most recent: Last 24 hours: No data recorded Last 36 hours: No data recorded Last 48 hours: No data recorded HEMATOLOGIC: No acute concerns VTE/DVT Prophylaxis: chemoprophylaxis alone, heparin CBC daily MUSCULOSKELETAL / P.T / O.T. / MOBILITY: Hx Basal cell carcinoma Hx myastenia gravis PT/OT when able LINES / DRAINS / TUBES: Peripheral Line Left;Upper Arm 20 Gauge (Active) Number of days: 1 Peripheral Line Right;Upper Arm 20 Gauge (Active) Number of days: 1 Central Line: not applicable. Corrigan: not applicable. GLOBAL ISSUES: Code Status: Full Code HOB Elevation: greater than 30 degrees Oral hygiene every four hours Chlorhexidine mouth rinse every twelve hours Disposition: keep in ICU List of consulted services: ADULT PHYSICAL THERAPY CONSULT IP ADULT OCCUPATIONAL THERAPY CONSULT IP CARE MANAGEMENT CONSULT IP NEUROLOGY CONSULT IP ADULT SPEECH THERAPY CONSULT IP (ACUTE CARE REHAB) Patient's decisional capacity: has capacity to make decisions Communication with Patient/Family: No meeting held. Goals of Care: remain stable from respiratory standpoint until plex or neuro bed can be performed/found Patient was seen and discussed on rounds with MD Niki Landa DO PGY 1 Internal Medicine and Pediatrics [facility] Cosigned by Talha Cooley MD at 06/24/2024 2:31 PM EST Associated attestation - Talha Cooley MD - 06/24/2024 2:31 PM EST I have examined the patient, reviewed the chart, labs, and relevant imaging, and discussed the patient's condition and plan of care with the resident and the ICU team. I agree with the resident's documentation, except where noted in my notes. 74 yo M pt w/ MG on Vvygart and prednisone reports approx 1 mo of worsening dysphagia as he weaned his prednisone. He presented to [facility] 06/23 w/ worsening dysphagia not relieved by Mestinon. He was treated w/ IVIG there. [facility] requested transfer here for PLEX, as pt previously has respondedbetter to PLEX than IVIG. His initial NIF at [facility] was -40, followed reportedly by 4 measures at 25.Reports feeling improved vs yesterday. On arrival pt awake, alert, NAD. Strong voice. Handling secretions well. Lungs CTAB and NL. O2 sats, RR normal. Initial ABG 7.41/ 41 w/ NIF -25. Per Neuro, we will request IR place a tunnelled cath for PLEX. --Q6h NIF, VC --Resume pred 30 mg, mestinon 30 --Tube feeds at 20 ml/ hr for now documented in this encounter Consult Notes * Kirstin Martin RDN - 06/25/2024 12:00 PM EST CLINICAL NUTRITION CONSULT/PROGRESS NOTE [facility] [id number] Name: Giorgio Sosa [place] [facility] [place] Date: 06/25/2024 Time: 1:36 PM How patient was identified (select 2): date and Name Discussed in interdisciplinary rounds: No Giorgio Sosa is a 74 year old male being seen for enteral nutrition Primary Diagnosis: Patient admitted with Myasthenia gravis crisis. Other pertinent information: Patient reports swallowing problems for a few days prior to admission.He had an NG tube placed at outside hospital due to dysphagia. He has been tolerating Nutren 1.5 at20 mL/hour. He eats a regular diet at baseline with no food allergies. He does not have a milk allergy, but does not drink milk b/c it gives him diarrhea. Able to eat ice cream, yogurt and cheese. Milk allergy changed to lactose intolerance. He drinks Ensure as a meal replacement or if he is hungrysometimes. He has a good appetite. He has had a 20 pound weight gain since starting prednisone 2 years ago. His weight was 79 kg but he has recently been at 87-89 kg. Denies N/V, constipation/diarrhea. NUTRITION ASSESSMENT: Past medical/surgical history and medications reviewed. Food/Nutrition-Related History Nutrition Support: Nutren 1.5 at 20 mL/hour- 420 mL, 630 calories, 29 grams of protein and 319 mL of free water. (Calculated to meet needs over 21 hours) Diet: NPO Previously followed diet: regular Food Allergies/Intolerances: none Adult Energy Intake: No significant decrease Pertinent medications/vitamins/minerals/supplements: prednisone Pertinent Biochemical Data: There are no biochemical abnormalities requiring a change in the nutrition plan of care. Nutrition-Focused Physical Findings: Appearance: WNWD Respiratory support: Room air Nasal/Oral: Swallow function, compromised or painful Digestive: No issues identified Cognition: Awake, alert and Oriented Skin: Intact Enteral access: NGT Edema Location: Right Lower Extremity (RLE);Left Lower Extremity (LLE) (06/25/24 1200) Anthropometrics Measurements Height: 170.2 cm (5' 7") (06/24/24 09) Admission weight: 86 kg Weight: 88.5 kg (195 lb 1.7 oz) (06/25/24 0600) BMI: 29.69 (06/24/24 09) Usual Body Weight: 86-89 kg [place] weight: 72.1 kg [place] Weight Based on BMI: 24.9 Interpretation of Weight Change Prior to Admission: No recent/significant weight change Weight Changes Since Admission: not significant Nutrition Prescription: Energy needs: 20-25 Kcal/kg Kcal/day: 5162-5421 Based on last known usual weight- 86 kg Protein needs: 1.0-1.2 gm/kg Protein: 86-103 Based on last known usual weight Fluid needs: 30 ml/kg Fluid: 2580 ml/day Based on last known usual weight- 86 kg Malnutrition: Malnutrition Present: No (06/25/24 4874) NUTRITION DIAGNOSIS: Swallowing difficulty related to Myasthenia gravis and dysphagia as evidenced by the need for non oral route of nutrition. Goals: Patient will be at goal tube feeding rate within 4 days and show evidence of tolerance. NUTRITION INTERVENTION/PLAN: Continue to monitor NPO/clear liquid status Continue to monitor nutrition support Clinical Nutrition Recommendations: Diet: Advance diet when clinically feasible Enteral Nutrition: Recommend Nutren 1.5 with a goal of 65 mL/hour to provide 1365 mL, 2048 calories, 93 grams of protein and 1037 mL of free water. (Calculated to meet needs over 21 hours) When tolerating, can transition to bolus feeds-- Nutren 1.5 250 mL x 6 feeds 1500 mL, 2250 calories, 102 grams of protein and 1140 mL of free water. He will need additional free water of ~ 1000 mL/day. NUTRITION MONITORING AND EVALUATION: NPO status/diet advancement and tolerance Enteral nutrition intake for formula, rate, progress toward goal regimen GI tolerance for enteral nutrition Lab values warranting change with MNT Weight for trends Plan follow-up: Will follow and adjust nutrition plan of care as medical condition requires. Please contact for change(s) in patient condition requiring earlier intervention. Kirstin Martin RDN, LDN Clinical Dietitian Phone [phone] [email or web address] * Grace Norwood RN - 06/25/2024 11:14 AM ESTAssociated Order(s): CARE MANAGEMENT CONSULT IP Please see ancillary tab for note from care management. * Silvia Cadet OTR/Alia - 06/25/2024 10:16 AM ESTAssociated Order(s): ADULT OCCUPATIONAL THERAPY CONSULT IP GENERAL EVALUATION - Occupational Therapy [address] [address] Name: Giorgio Sosa [place] [facility] [place] Date: 06/25/2024 Time: 11:25 AM Giorgio Sosa is a 74 year old male. Patient Status: Inpatient Insurance: Payor: MEDICARE Plan: MEDICARE A AND B Product Type: *No Product type* Payor: [employer] Plan: [employer] Product Type: *No Product type* Patient Seen: at bedside, nursing cleared patient for therapy Patient Identified By: Name, ID Band and Date Diagnosis: myasthenia gravis exacerbation (06/25/24 1016) Status of treatment: Evaluation completed (06/25/24 1016) Orders: OT evaluation and treatment;OT OOB (06/25/24 1016) Weight Bearing Status: Weight bearing as tolerated (06/25/24 1016) Precautions: Alarms;Falls;Safety (core flow) (06/25/24 1016) Total Treatment Time: 15 (06/25/24 1016) Past Medical History: Past Medical History: Diagnosis Date Allergic disorder Allergy unspecified Allergic rhinitis due to pollen BPH with obstruction/lower urinary tract symptoms 06/30/2011 FAMILY HX MALIG.NEOPLASM PROSTATE 01/19/2001 Migraine Migraines,unspecified Prostate cancer (HCC) 04/28/2015 t1c Small volume sayda 6 Past Surgical History: Past Surgical History: Procedure Laterality Date COLONOSCOPY, DIAGNOSTIC (RECTUM) 04/10/2015 adenomatous & hyperplastic polyps, diverticulosis, repeat 5 yrs/COLONOSCOPY FLEXIBLE PROXIMAL DIAGNOSTIC performed by Anjelica Lucas DO at ENDOSCOPY [facility] COLONOSCOPY, DIAGNOSTIC (RECTUM) 05/26/2020 adenomatous polyp, repeat 5 yrs / COLONOSCOPY FLEXIBLE PROXIMAL DIAGNOSTIC performed by Anjelica Lucas DO at ENDOSCOPY [facility] COLONOSCOPY, GI REFERRAL OP 2004 wnl-repeat 10 yrs COLORECTAL CANCER SCREEN;W/FLE 10/1998 wnl DENTAL SURGERY PROCEDURE NEC Dental Surgery Procedure IR APHERESIS ACCESS 03/15/2023 NEEDLE/PUNCH BIOPSY OF PROSTATE 04/21/2015 Prostate,Needle/Punch Biopsy REMOV ELSIE HOMERO JAZMINE ACC DEV,WITH N/A 01/06/2024 REMOVAL OF TUNNELED CENTRAL VENOUS ACCESS DEVICE WITH PORT performed by Osvaldo Aden MD at OR [facility] REMOVE CATARACT, INSERT LENS PROSTH Right 02/02/2024 RIGHT EXTRACAPSULAR CATARACT REMOVAL WITH INTRAOCULAR LENS performed by Andre Swartz MDat OR [facility] REMOVE CATARACT, INSERT LENS PROSTH Left 02/16/2024 LEFT EXTRACAPSULAR CATARACT REMOVAL WITH INTRAOCULAR LENS performed by Andre Swartz MD at OR [facility] REMOVE TONSILS & ADENOIDS, AGE 12+ SKIN LESIONS BIOPSY,ADDED 05/02/2018 chest area basal cell removed by Dr Mejia Social History/Disposition Lives with: Alone (06/25/24 1016) Assistance available: Yes (06/25/24 1016) Dwelling type: Multi-story home (06/25/24 1016) Entry steps: (6) (06/25/24 1016) Inside steps: 10 - 15 (06/25/24 1016) Bedroom location: 2nd floor (06/25/24 1016) Bath location: 2nd floor full bath;1st floor full bath (06/25/24 1016) Prior Level of Function Reported by: Patient (06/25/24 1016) Ambulation: Ambulatory with device (06/25/24 1016) Ambulatory Device: Cane (PRN) (06/25/24 1016) Grooming: Independent (06/25/24 1016) Bathing: Independent (06/25/24 1016) Dressing: Independent (06/25/24 1016) Feeding: Independent (06/25/24 1016) Toileting: Independent (06/25/24 1016) Meal Prep: Independent (06/25/24 1016) Homemaking: Independent (06/25/24 1016) Shopping: Independent (06/25/24 1016) Driving: Yes (06/25/24 1016) Observations Consciousness: Alert (06/25/24 1016) Orientation: Oriented times 4 (06/25/24 1016) Psychosocial: Patient can communicate basic needs (06/25/24 1016) Sitting posture: Forward head;Rounded shoulders (06/25/24 1016) Standing posture: Forward head;Rounded shoulders (06/25/24 1016) Safety awareness: Needs cueing supervision. (06/25/24 1016) Other Findings Endurance: Fair (06/25/24 1016) Coordination: Intact (06/25/24 1016) Current Functional Status: Bilateral Upper Extremity Range of Motion: WFL (06/25/24 1016) Strength Assessment: (3+/5) (06/25/24 1016) Self Care Able to provide self care: Yes (06/25/24 1016) Grooming: Supervision (Please comment) (06/25/24 1016) Dressing Upper Body: Supervision (Please comment) (06/25/24 1016) Lower Body: Contact Guard (pants) (06/25/24 1016) Functional Ambulation Assistive Device: Cane (06/25/24 1016) Distance in feet:: 75 (06/25/24 1016) Level of Assistance: Supervision (Please Comment) (06/25/24 1016) Bed Mobility Supine-Sit: Supervision (Please comment) (06/25/24 1016) OT Transfers Sit-Stand: Supervision (Please comment) (06/25/24 1016) Stand-Sit: Supervision (Please comment) (06/25/24 1016) Bed-Chair: Supervision (Please comment) (06/25/24 1016) Balance Sit (Static): Fair (06/25/24 1016) Sit (Dynamic): Fair (06/25/24 1016) Stand (Static): Fair (06/25/24 1016) Stand (Dynamic): Fair (06/25/24 1016) Alarm Status Patient positioned in: Chair (06/25/24 1016) With: Pressure pad alarm intact and functioning and call garcia in reach (06/25/24 1016) Patient and Family Goals: to get well Patient Education Education Topic: Role of OT;Plan of care goals (06/25/24 1016) Review of Precautions: Safety;Fall (06/25/24 1016) Barriers to learning: Medical status (06/25/24 1016) Preferred learning method: Combination (06/25/24 1016) Treatment Provided: Evaluation Moderate Complexity 15 minutes - 77032: Patient was cooperative during treatment session. Moderate complexity evaluation performed and 3-5 activity limitations were identified, including ADL deficit, functional mobility deficit, bed mobility deficit, decreased strength, decreased endurance, and impaired balance. Minimal or moderate modification of the functional task was necessary to complete the evaluation. Deficits Requiring O.T. Treatment: Deficits requiring O.T. treatment needs: ADL/self-care;Balance;Endurance;Functional mobility;Safety;Upper extremity strength;Weakness (06/25/24 1016) Goal Time Frame: 8 visits Assessment: Pt is a 74 year old male admitted [place] [facility] [place] dx of myasthenia gravis exacerbation. Prior to admission, pt lived alone where he was independent with ADLs and completed mobility with a cane PRN. Pt supine in bed upon therapist arrival. Pt completed bed mobility with supervision. Pt completed UE dressing with supervision and LE dressing with CGA. Pt completed sit to stand transfer from EOB with supervision. Pt completed mobility in room and hallway using cane with supervision. Pt ended session in chair with call garcia in reach. Pt would benefit from skilled OT services in order to increase independence and facilitate a safe transition to next level of care. Please consider home with post-acute care services which may include home health or outpatient therapy. The level of care will be determined in collaboration with the patient, family/caregiver and care team members. Goals: BUE Strength/ROM Increase BUE strength to at least one muscle grade. ADLs Increase UE dressing to independent. Increase UE bathing to independent. Increase LE dressing to independent. Increase LE bathing to independent. Increase toileting tasks to independent Increase grooming and basic hygiene tasks while in stance at sink with independent. Bed Mobility/Functional Mobility Increase bed mobility to independent. Increase functional mobility using the least restrictive device to mod I. Functional Transfers Increase functional sit to stand transfers during ADLs to independent. Increase transfers to toilet to independent. Increase transfers from bed to chair with independent. Balance Increase sitting balance at EOB to fair+ during ADLs. Increase standing balance to fair+ during ADLs. Treatment Plan: Safety, Bed mobility training, Functional Ambulation, Transfer training, Upper extremity strengthening, Balance activities, ADL training , and Endurance Anticipated Frequency (on eval): 1 to 3 times per week (06/25/24 1016) AM-PAC Help From Another Person Eating Meals: A little (06/25/24 1016) Help From Another Person Taking Care of Personal Grooming: A little (06/25/24 1016) Help From Another Person To Put On/Take Off Upper Body Clothing: A little (06/25/24 1016) Help From Another Person To Put On/Take Off Lower Body Clothing: A little (06/25/24 1016) Help From Another Person Toileting: A little (06/25/24 1016) Help From Another Person Bathing: A little (06/25/24 1016) OT AM-PAC Score: 18 (06/25/24 1016) OT AM-PAC t-Scale Score: 38.66 (06/25/24 1016) HLM (Highest Level of Mobility) Goal: Level 8 walk 250 feet or more (06/25/24 0800) A portion of this AM-PAC assessment not scored based on functional assessment, rather clinical decsion making utilized based on current findings and/or prior level of function. Please refer to futureAM-PAC calculations of functional ability as they become available. * Barbara Martin, PT - 06/25/2024 10:01 AM ESTAssociated Order(s): ADULT PHYSICAL THERAPY CONSULT IP GENERAL EVALUATION - Physical Therapy [address] [address] Name: Giorgio Sosa [place] [facility] Date: 06/25/2024 Time: 11:28 AM Giorgio Sosa is a/an 74 year old male. Patient Status: Inpatient Insurance: Payor: MEDICARE Plan: MEDICARE A AND B Product Type: *No Product type* Payor: [employer] Plan: [employer] Product Type: *No Product type* Patient Seen: at bedside, nursing cleared patient for therapy Patient Identified By: Name, ID Band and Date Diagnosis: myasthenia gravis (06/25/24 1016) Status of treatment: Evaluation completed (06/25/24 1016) Orders: PT evaluation and treatment (06/25/24 1016) Precautions: NG tube;Other - describe (R eye patch) (06/25/24 1016) Total Treatment Time--free text: 15 (06/25/24 1016) Past Medical History: Past Medical History: Diagnosis Date Allergic disorder Allergy unspecified Allergic rhinitis due to pollen BPH with obstruction/lower urinary tract symptoms 06/30/2011 FAMILY HX MALIG.NEOPLASM PROSTATE 01/19/2001 Migraine Migraines,unspecified Prostate cancer (HCC) 04/28/2015 t1c Small volume sayda 6 Past Surgical History: Past Surgical History: Procedure Laterality Date COLONOSCOPY, DIAGNOSTIC (RECTUM) 04/10/2015 adenomatous & hyperplastic polyps, diverticulosis, repeat 5 yrs/COLONOSCOPY FLEXIBLE PROXIMAL DIAGNOSTIC performed by Anjelica Lucas DO at ENDOSCOPY [facility] COLONOSCOPY, DIAGNOSTIC (RECTUM) 05/26/2020 adenomatous polyp, repeat 5 yrs / COLONOSCOPY FLEXIBLE PROXIMAL DIAGNOSTIC performed by Anjelica Lucas DO at ENDOSCOPY [facility] COLONOSCOPY, GI REFERRAL OP 2004 wnl-repeat 10 yrs COLORECTAL CANCER SCREEN;W/FLE 10/1998 wnl DENTAL SURGERY PROCEDURE NEC Dental Surgery Procedure IR APHERESIS ACCESS 03/15/2023 NEEDLE/PUNCH BIOPSY OF PROSTATE 04/21/2015 Prostate,Needle/Punch Biopsy REMOV ELSIE HOMERO JAZMINE ACC DEV,WITH N/A 01/06/2024 REMOVAL OF TUNNELED CENTRAL VENOUS ACCESS DEVICE WITH PORT performed by Osvaldo Aden MD at OR [facility] REMOVE CATARACT, INSERT LENS PROSTH Right 02/02/2024 RIGHT EXTRACAPSULAR CATARACT REMOVAL WITH INTRAOCULAR LENS [facility] REMOVE CATARACT, INSERT LENS PROSTH Left 02/16/2024 LEFT EXTRACAPSULAR CATARACT REMOVAL WITH INTRAOCULAR LENS performed by Andre Swartz MD at OR [facility] REMOVE TONSILS & ADENOIDS, AGE 12+ SKIN LESIONS BIOPSY,ADDED 05/02/2018 chest area basal cell removed by Dr Mejia Subjective: Pt in bed and willing to get up to the chair. Social History/Disposition Lives with: Alone (06/25/24 1016) Assistance available: Yes (06/25/24 1016) Dwelling type: Multi-story home (06/25/24 1016) Entry steps: (6) (06/25/24 1016) Inside steps: 10 - 15 (06/25/24 1016) Bedroom location: 2nd floor (06/25/24 1016) Bath location: 2nd floor full bath;1st floor full bath (06/25/24 1016) Prior Level of Function Reported by: Patient (06/25/24 1016) Ambulation: Ambulatory with device (06/25/24 1016) Ambulatory Device: Cane (06/25/24 1016) Devices at home: Straight cane (06/25/24 1016) Observations Consciousness: Alert (06/25/24 1016) Orientation: Oriented times 4 (06/25/24 1016) Psychosocial: Patient can communicate basic needs (06/25/24 1016) Pain: No complaints of pain Range of Motion Range of Motion: WFL (06/25/24 1016) Strength Assessment Strength Assessment: Deficits noted (06/25/24 1016) WNL, except: LLE;RLE (06/25/24 1016) LLE: 4/5 (06/25/24 1016) RLE: 4/5 (06/25/24 1016) P.T. Bed Mobility Supine-Sit: Supervision (06/25/24 1016) Transfers Sit-Stand: Supervision (06/25/24 1016) Stand-Sit: Supervision (06/25/24 1016) Ambulation: Distance ambulated (feet): 75 ft Assistive Device: Straight cane Assist: Supervision Balance Sit (Static): Good (06/25/24 1016) Sit (Dynamic): Good (06/25/24 1016) Stand (Static): Fair (F+) (06/25/24 1016) Stand (Dynamic): Fair (F+) (06/25/24 1016) Patient and or Family Goal(s): to return home Patient Education Review of Precautions: Safety (06/25/24 1016) Safety Awareness: Patient verbalizes insight of current deficits (06/25/24 1016) Preferred learning method: Combination (06/25/24 1016) Barriers to learning: Medical Status (06/25/24 1016) Method of Education: Verbalized to patient (06/25/24 1016) Topic of Education: Safety with mobility, Goals/plan of care, and Use of assistive device Method of Education: Verbal discussion and explanation provided to patient: verbalized understanding and or agreement of this information Treatment Provided: Evaluation Moderate Complexity 15 minutes - [id number]: Patient was cooperative and pleasant during treatment session. Moderate complexity evaluation performed and 1-2 personal factorsor comorbidities were identified that will impact plan of care, including multiple steps at home and lives alone at home. Patient presents with limitations in strength, bed mobility, transfers, gait,elevations, and balance, which will impact plan of care. These limitations will be addressed by thegoals set for this patient. Alarm Status Patient positioned in: Chair (06/25/24 1016) With: Pressure pad alarm intact and functioning and call garcia in reach (06/25/24 1016) Following session patient seated OOB in chair with chair alarm activated. Chair alarm (did not havecord to plug into call garcia system and/or room did not have port to plug cord into call garcia system). Patient's nurse Edel was made aware. Treatment Status: Treatment at bedside (06/25/24 1016) Goals: Demonstrate Bed Mobility with: Supine to Sit: independent (pt does 100%) Sit to supine: independent (pt does 100%) Demonstrate Transfers with: Sit to stand: independent (pt does 100%) Stand to sit: independent (pt does 100%) Bed to chair: independent (pt does 100%) Demonstrate Ambulation: assistive device: least restrictive device distance in feet: 250 ft level of assistance on level surface: modified independent (with device or slow) Demonstrate Stairclimbing: Number of steps: 12 and Level of Assistance: modified independent (with device or slow) Increase Strength of: BLE's to 5/5 Increase Balance: G dynamic standing Time Frame: 10 visits Assessment: Pt lives alone in a 2 story home with 6 steps to enter and was most recently using a cane for all ambulation. Pt also reports he could possibly stay with his daughter at D/C as she has a first floor set up. He presented to the hospital on 06/24 with MG crisis. Pt able to complete supine to sit with supervision. He was then able to transfer and ambulate with cane 60 ft and then 75 ft supervision. Feel pt would benefit from PT services in order to increase overall functional mobility aswell as activity tolerance. Please consider home with post-acute care services which may include home health or outpatient therapy. The level of care will be determined in collaboration with the patient, family/caregiver and care team members. Deficits requiring P.T. treatment needs: Safety;Mobility;Balance;Weakness;Lower extremity strength (06/25/24 1016) Equipment Needs: Treatment Plan: Bed mobility training, Transfer training, Gait training, Elevation training, Strengthening exercises: BLE's, and Balance activities Anticipated Frequency (on eval): (1-5 times a week) (06/25/24 1016) AM PAC Score with Stairs: 20 A portion of this AM-PAC assessment not scored based on functional assessment due to no assessment of elevations; rather clinical decision making utilized based on current findings and/or prior levelof function. Please refer to future AM-PAC calculations of functional ability as they become available. * Loulou Dickens MD - 06/24/2024 5:11 PM ESTAssociated Order(s): APHERESIS CONSULT IP Apheresis Medicine Consultation Reason for consult: Evaluate for Therapeutic Plasma Exchange (TPE). HPI/Primary Condition/Clinical Course: Giorgio Sosa is a 74 year old male who presents with a history of myasthenia crisis. Allergies: Merthiolate [benzalkonium chloride] and Milk [milk (cow)] Medications: @CMEDS@ Consulted Indication for Apheresis procedure: Myasthenia crisis ASFA Category for indication: I - Disorders for which apheresis is accepted as first-line therapy, either as a primary standalone treatment or in conjunction with other modes of treatment. Assessment and plan: Mr. Sosa is a 74 year old male with myasthenia crisis We will perform a course of 5 Therapeutic Plasma Exchange (TPE) procedures starting on Tuesday06/24/2024. Tuesday-Tuesday [id number] the Apheresis RN will check peripheral venous access. After hours, please place dual-lumen rigid dialysis catheter [unless patient has a dialysis fistula or apheresis ports]. If temporary IJ approach is used, we will need STAT CXR to confirm placement prior to startingprocedure. Please ensure that an active Type and Screen is maintained while inpatients are receiving Apheresistreatments. If this is not already collected, please order a STAT T&S now. pRBC prime of the apheresis instrument may be necessary if Hct is < 21. Please transfuse as appropriate when possible. 24 hours prior to plasma exchanges, hold: MIHIR inhibitors (associated with increased risk of replacement fluid-dependent, omode-spmwdqxbep-mordgant reactions) Consider holding: Beta or Calcium channel blockers (associated with increased risk of joy- procedural hypotensive reactions) For questions, additional requests or desired plan adjustments, contact the Apheresis covering physician. [employer] role "Apheresis Consult" I did not see the patient, but I have reviewed the resident/fellow physician documentation and was readily available on date of service and spent 45 min reviewing the note and documentation. References Kirt L, Harpreet CR, Jacquie NA, Shreyas INEZ, Tricia R, Kathie OA, Jessica CJ, Perla HP, Michele AP, Terence J, Felicia V, Eliot ND, Jamie NM. Guidelines on the Use of Therapeutic Apheresis in Clinical Practice - Evidence- Based Approach from the Writing Committee of the [employer] for Apheresis: The Ninth Special Issue. J Clin Apher. 2022;38(2):77-278. doi: 10.1002/jca.17018. PMID: 80447091. * Olivia Posada, [facility] FIELD OPERATOR - 06/24/2024 2:16 PM ESTAssociated Order(s): ADULT SPEECH THERAPY CONSULT IP (ACUTE CARE REHAB) CLINICAL BEDSIDE SWALLOW EVALUATION - Speech-Language Pathology [address] [address] Name: Giorgio Sosa [place] [facility] Date: 06/24/2024 Time: 2:16 PM Patient Status: Inpatient Insurance: Payor: MEDICARE / Plan: MEDICARE A AND B / Product Type: *No Product type* / GENERAL INFORMATION: Admission Date: 06/24/2024 Referring Physician: Chapis Pertinent Medical History: Per EPIC chart review the pt is a "74 yo male with PMH myasthenia gravis(diplopia, facial weakness, ptosis right eye), BPH, prostate cancer, hx basal cell cancer. Presented to [facility] ED. Patient reports self tapering his prednisone over the past 2 months lead to increased difficulty swallowing and culminated in inability to swallow which lead him to the ED. Concerns for myasthenia crisis lead patient to being started on IVIG, and recommended transfer to [facility] [place]. Neurology ICU full, [place] [facility] [place]rology consulted and recommended IVIG and there are discussions surrounding starting PLEX. Patient reports being on Mestinon 60mg Q4h and prednisone 30mg WD, vyvgart infusion 06/22. Elver rogers started IV Ig and transferred for plex therapy. PSH: colonoscopy, dental surgery, prostate needle punch biopsy. Bilateral cataracts. Tonsillectomy adenoidectomy. Skin lesion biopsy. Social: no smoking, alcohol occasional. No drug use. Family Hx: sister breast cancer. Hep C cured. Migraines. Father had prostate cancer, colon/bladder cancer, dementia. Mother had diabetes, HTN, pacemaker, CHF. Uncle had prostate cancer Patient report living alone, his 1 year ago, and he has 2 children. FULL CODE confirmed with patient, ok with cpr, intubation, shock, pressers. If patient should be unable to make decisions for himself, he would want his daughter Edel Blake daughter, number [phone], to make decisions for him." Past Medical History: Diagnosis Date Allergic disorder [...] performed by Anjelica Lucas DO at ENDOSCOPY [facility] COLONOSCOPY, DIAGNOSTIC (RECTUM) 05/26/2020 adenomatous polyp, repeat 5 yrs / COLONOSCOPY FLEXIBLE PROXIMAL DIAGNOSTIC performed by Anjelica Lucas DO at ENDOSCOPY [facility] COLONOSCOPY, GI REFERRAL OP 2004 wnl-repeat 10 yrs COLORECTAL CANCER SCREEN;W/FLE 10/1998 wnl DENTAL SURGERY PROCEDURE NEC Dental Surgery Procedure IR APHERESIS ACCESS 03/15/2023 NEEDLE/PUNCH BIOPSY OF PROSTATE 04/21/2015 Prostate,Needle/Punch Biopsy REMOV ELSIE HOMERO JAZMINE ACC DEV,WITH N/A 01/06/2024 REMOVAL OF TUNNELED CENTRAL VENOUS ACCESS DEVICE WITH PORT performed by Osvaldo Aden MD at OR [facility] REMOVE CATARACT, INSERT LENS PROSTH Right 02/02/2024 RIGHT EXTRACAPSULAR CATARACT REMOVAL WITH INTRAOCULAR LENS performed by Andre Swartz MDat OR [facility] REMOVE CATARACT, INSERT LENS PROSTH Left 02/16/2024 LEFT EXTRACAPSULAR CATARACT REMOVAL WITH INTRAOCULAR LENS performed by Andre Swartz MD at OR [facility] REMOVE TONSILS & ADENOIDS, AGE 12+ SKIN LESIONS BIOPSY,ADDED 05/02/2018 chest area basal cell removed by Dr Mejia Current Diet/Dysphagia History: NPO/NGT deferred Nursing Bedside Dysphagia Screening -No prior hx of dysphagia documented in epic Cognitive-Communication: Pt was AAOx3, receptive and expressive communication appear to be within functional limits. Barriers to Learning: Medical Status Hearing Acuity: Deferred Best Learning Method: Auditory Pain: No complaints of pain ORAL MECHANISM EXAM: Facial Symmetry Within functional limits Labial Function Within functional limits Lingual Function Lingual deviation to the left w/protrusion Velar Function symmetrical Dentition: upper and lower PROTECTIVE MECHANISMS: Volitional Swallow delayed Volitional Throat Clearing Within Functional Limits Volitional Cough Within Functional Limits Vocal Quality Within Functional Limits Tracheostomy Tube: Not Present Ventilator Status: Not Applicable SWALLOWING FUNCTION: ORAL PREPARATION PHASE: Ice Chips: Within functional limits (WFL) Mildly Thick Liquid (IDDSI Level 2): WFL Thin Liquid (IDDSI Level 0): WFL ORAL PHASE: Ice Chips: Oral Holding Mildly Thick Liquid (IDDSI Level 2): Oral holding Thin Liquid (IDDSI Level 0): Oral Holding PHARYNGEAL PHASE Ice Chips: Delayed swallow and throat clearing Mildly Thick Liquid (IDDSI Level 2): Delayed swallow, throat clearing and cough Thin Liquid (IDDSI Level 0): Delayed swallow, throat clearing and cough RECOMMENDATIONS/PLAN: Videofluoroscopy: Not indicated at this time may be warranted in the future Diet Level: NPO Liquid Level: NPO Presentation of Medication: Via feeding tube ANTICIPATED FREQUENCY (ON EVAL): 1-3 times per week DIAGNOSIS/IMPRESSIONS: Diagnosis/Impressions: Mild oral phase dysphagia and suspected pharyngeal phase dysphagia Pt oral holding for trials presented Delayed swallow initiation, throat clearing and cough following the swallow Recommend NPO Allow ice chips in moderation w/good oral care for comfort, to facilitate overall swallow function and assist w/keeping secretions thinned out Rehab Potential: Fair-good TREATMENT PLAN: Swallowing Treatment: Indicated Treatment Goals: Patient will consume least restricitive diet without signs/symptoms of aspiration The above information was discussed with the patient/family. Yes The patient/family was in Agreement * Beatriz Christopher MD - 06/24/2024 9:21 AM ESTAssociated Order(s): NEUROLOGY CONSULT IP CONSULT - Neurology [facility] [id number] Name: Giorgio Sosa [place] [facility] Date: 06/24/2024 Time: 9:21 AM Date and Time Neurology Team Notified of Consult: 06/24/2024 at 1027 hours REQUESTING SERVICE: Critical Care Medicine REASON FOR CONSULT: Concern for Myasthenic Crisis Person Providing History: Patient along with chart review HPI: 74 year old male with Hx of AChR Ab +ve Myasthenia Gravis on Vyvgart every 53 days - known to [facility] Neurology (Follows with Dr Wright) presents as a transfer from [facility] for having exacerbation of myasthenic symptoms including worsening ptosis, dysphagia, dyspnea and fatigue. Neurology was consulted for management of possible Myasthenic crisis. Patient was [place] [facility] [place] found to be awake, alert and oriented x3 in no apparent distress. Reports that in early April 2024 working with neurology team he decreased his Prednisonefrom 10 mg/day to 5 mg/day and shortly after started experiencing worsening ptosis and difficulty swallowing. By early May he was on increased dose of Prednisone to 20 mg per day. On 11 June 2024 due to persistent symptoms his Prednisone dose was increased to 30 mg daily and he was startedon Mestinon 60 mg TID later increased to Q6H daily. On Tuesday although he received his Vvygart he continued to have worsening symptoms to the point he was unable to swallow his Mestinon pill. He wentto [facility] where transfer was initiated with the plan of PLEX at [facility]. At [facility] patient was kept on Prednisone 30 mg daily and Mestinon 60 mg Q4H via NG Tube. Due todelay in transfer he was started on IVIG and given 1 dose. Per patient report and chart review it appears that he has tried IVIG before which did not improve his symptoms and had to undergo subsequent PLEX in 2022. He was assessed to have been peaked with IVIG which was one of the reasons patient was escalated to Vyvgart. 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 Reports that he has short of breath and more fatigued yesterday has improved marginally. Respiratory mechanics done upon arrival show FVC 16 mL/kg (ideally should be > 20 mg/kg) and NIV -25 cmH2O (ideally should be < -30 cmH2O ) and PEP is 60 (ideally > 40 cmH2O). Reports GI symptoms with Mestinon 60 mg Q4h and inquiring if he can decrease it. PAST MEDICAL HISTORY: Past Medical History: Diagnosis Date Allergic disorder Allergy unspecified Allergic rhinitis due to pollen BPH with obstruction/lower urinary tract symptoms 06/30/2011 FAMILY HX MALIG.NEOPLASM PROSTATE 01/19/2001 Migraine Migraines,unspecified Prostate cancer (HCC) 04/28/2015 t1c Small volume sayda 6 PAST SURGICAL HISTORY: Past Surgical History: Procedure Laterality Date COLONOSCOPY, DIAGNOSTIC (RECTUM) 04/10/2015 adenomatous & hyperplastic polyps, diverticulosis, repeat 5 yrs/COLONOSCOPY FLEXIBLE PROXIMAL DIAGNOSTIC performed by Anjelica Lucas DO at ENDOSCOPY [facility] COLONOSCOPY, DIAGNOSTIC (RECTUM) 05/26/2020 adenomatous polyp, repeat 5 yrs / COLONOSCOPY FLEXIBLE PROXIMAL DIAGNOSTIC performed by Anjelica Lucas DO at ENDOSCOPY [facility] COLONOSCOPY, GI REFERRAL OP 2004 wnl-repeat 10 yrs COLORECTAL CANCER SCREEN;W/FLE 10/1998 wnl DENTAL SURGERY PROCEDURE NEC Dental Surgery Procedure IR APHERESIS ACCESS 03/15/2023 NEEDLE/PUNCH BIOPSY OF PROSTATE 04/21/2015 Prostate,Needle/Punch Biopsy REMOV ELSIE HOMERO JAZMINE ACC DEV,WITH N/A 01/06/2024 REMOVAL OF TUNNELED CENTRAL VENOUS ACCESS DEVICE WITH PORT performed by Osvaldo Aden MD at OR [facility] REMOVE CATARACT, INSERT LENS PROSTH Right 02/02/2024 RIGHT EXTRACAPSULAR CATARACT REMOVAL WITH INTRAOCULAR LENS performed by Andre Swartz MDa OR [facility] REMOVE CATARACT, INSERT LENS PROSTH Left 02/16/2024 LEFT EXTRACAPSULAR CATARACT REMOVAL WITH INTRAOCULAR LENS performed by Andre Swartz MD at OR [facility] REMOVE TONSILS & ADENOIDS, AGE 12+ SKIN LESIONS BIOPSY,ADDED 05/02/2018 chest area basal cell removed by Dr Mejia FAMILY HISTORY: Family History Problem Relation Name Age of [...] Known Problems Other No Known Problems Son SOCIAL HISTORY: Social History Tobacco Use Smoking status: Never Passive exposure: Past Smokeless tobacco: Never Tobacco comments: Mother smoked around as child no current passive smoke exposure Vaping Use Vaping status: Never Used Substance Use Topics Alcohol use: Not Currently Comment: occ Drug use: No ALLERGIES: Merthiolate [benzalkonium chloride] and Milk [milk (cow)] CURRENT MEDICATIONS: Note that completed medications (per the MAR) continue to display for 24 hours. Ordered medicationsto be given in the future also display. Current Facility-Administered Medications Medication Dose Route Frequency Provider chlorHEXIDINE (Periogard) 0.12 % oral rinse 15 mL 15 mL Oral mucosal membrane BID (799,1999) Niki Nation DO Finasteride (Proscar) tab 5 mg 5 mg NG Tube Daily(AM) Niki Nation, hEParin inj 5,000 Units 5,000 Units Subcutaneous Q8H Niki Nation, Mirtazapine (Remeron) tab 15 mg 15 mg NG Tube HS Niki Nation DO Nutren 1.5 liquid 20 mL/hr Tube feed Continuous Niki Nation DO Oral Hygiene: Mouth Swab with dentifrice Oral Q4H Limited (00;04;12;16) Niki Nation DO oxygen GAS Inhalation Oxygen Niki Nation DO predniSONE (Deltasone) tab 30 mg 30 mg NG Tube Daily(AM) Niki Nation, pyRIDostigmine (Mestinon) tab 60 mg 60 mg Oral Q6H Niki Nation, sodium chloride 0.9 % flush peripheral luisana 3 mL 3 mL IV Push Q8H Niki Nation, ROS: All negative other than as noted in HPI PHYSICAL EXAMINATION: Most Recent Vital Signs: BP: 136 mmHg/77 mmHg (06/24/24 1100) Pulse: 73 (06/24/24 1100) Resp: 29 (06/24/24 1100) Temp: 36 C (06/24/24 1000) Temp Summary: Temp Min: 36 C (96.8 F) Max: 36 C (96.8 F) SpO2: 99 % (06/24/24 1100) O2 flow rate: Supplemental O2 Delivery: Weight: 86 kg (189 lb 9.5 oz) (06/24/24927) Height: 170.2 cm (5' 7") (06/24/24927) Body mass index is 29.69 kg/m. Vital Signs Last 24 Hours: Systolic BP: Most Recent Systolic BP Av.7 mmHg Min: 132 mmHg Max: 136 mmHg Temperature: Most Recent Temperature Av C Min: 36 C Max: 36 C Pulse: Pulse Av.7 Min: 63 Max: 73 Respirations: Resp Av Min: 20 Max: 29 SpO2: SpO2 Av % Min: 98 % Max: 100 % General Examination: Constitutional: Appearance well groomed and in bed Head/face, ears, nose, throat: normocephalic, atraumatic, right eye covered with eye patch Cardiovascular: regular rate Psychiatric: normal judgement and insight, normal mood, and normal affect Neurologic Examination: Ophthalmoscopic: deferred due to suboptimal dilation Mental Status and Orientation: awake, alert, oriented x 3 Memory: intact to recent and remote recall Attention: normal Knowledge:normal Language: no aphasia Speech: mild dysarthria per patient however grossly intelligible speech Cranial Nerves: CN 2 - pupils round, equal, reactive to light and double vision in primary gaze CN 3, 4, 6 - extra-ocular movements intact, no nystagmus, and right eye severe ptosis CN 5 - facial sensation intact V1-3 CN 7 - no facial asymmetry CN 8 - intact hearing CN 9, 10 - palate symmetric, uvula midline, no deviation CN 11 - shoulder shrug full strength CN 12 - tongue protrudes midline Sensory: intact to light touch Coordination: intact with finger to nose testing Gait: deferred due to fall risk Muscle Tone: normal Muscle exam: strength 5/5 upper and lower extremities and no drift Reflexes: Brachioradialis Biceps Triceps Patellar Achilles Plantars Kathleen's Right 2+ 2+ 2+ 3+ 2+ withdrawals not present Left 2+ 2+ 2+ 2+ (brisk) 2+ downgoing not present STUDIES: Labs: HbA1c 6.2% 05/31/23 Laboratory Values: reviewed. -- Brief labs below include the 7 most recent results over the past week. Blood Gas: Lab results within last 7 days (see chart for full results) Units 06/24/24 1006 pH, Venous units 7.351 pCO2, Venous mmHg 54.9 pO2, Venous mmHg 26.7 Base Excess, Venous mmol/L 2.9* Chemistry Panel: Lab results within last 7 days (see chart for full results) Units 06/24/24 1006 SODIUM mmol/L 144 POTASSIUM mmol/L 3.9 CHLORIDE mmol/L 108* CO2 mmol/L 27 EGFR mL/min 76 BUN mg/dL 13 CREATININE mg/dL 1.0 GLUCOSE mg/dL 82 CALCIUM mg/dL 8.8 Magnesium mg/dL 2.4 Phosphorus mg/dL 2.3* ANION GAP mmol/L 9 Complete Blood Count: Lab results within last 7 days (see chart for full results) Units 06/24/24 1006 WBC K/uL 9.95 HGB g/dL 15.7 HCT % 48.5* PLT K/uL 280 MCV fL 96.0 Cardiac Studies: Lab results within last 7 days (see chart for full results) Units 06/24/24 1006 Troponin T, High Sensitivity ng/L 16 Coagulation Studies: No results in the last 7 days - inpatent use only Liver Function Panel: Lab results within last 7 days (see chart for full results) Units 06/24/24 1006 Albumin g/dL 4.2 Protein g/dL 6.9 Bilirubin, Total mg/dL 0.9 Bilirubin, Direct mg/dL 0.3 AST U/L 34 ALT U/L 32 Alkaline Phosphatase U/L 33* Infectious Studies: Lab results within last 7 days (see chart for full results) Units 06/24/24 1006 Lactate mmol/L 1.1 Procalcitonin ng/mL 0.08 Cultures: reviewed. No results in the last 7 days - inpatent use only Recent Cultures (2 Weeks) No lab values to display. Radiographic Studies (last 72 hours): reviewed. No imaging results in the last 72 hours Prior Imaging: CT Chest with contrast 06/06/23: "IMPRESSION 1. No evidence of thymoma or other suspicious finding involving the chest. 2. 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 Last Vyvgart infusion on 06/22/24 and on the same day he stopped being able to swallow medications and had wrosening fatigue/SOB which has been a progressive decline since once month. Now s/p 1 dose of IVIG at [facility] however he has been unresponsive to IVIG in the past requiring PLEX. Reasonable to start PLEX considering this a flare with impending myasthenic crisis. Physical exam pertinent for severe right eye ptosis and mild dysarhtria. Currently has an NG tube placed at OSH for medication administration and will require a formal speech eval. Resp mechanics currently with TERRI -25, VC 1.38L. Recommend ICU monitoring atleast for now with Resp mechanics Q6H. Recommend PLEX via TDC for atleast 5 sessions, if improvement seen especially with swallowing may be able to complete some sessions as outpatient. Lastly, okay to continue Prednisone 30 mg daily and Mestinon 60 mg Q6H as long as patient is able to handle secretions. RECOMMENDATIONS / PLAN: - ICU monitoring for now with respiratory mechanics q6h and neuro checks q4h - PLEX for atleast 5 sessions via TDC - Cont Prednisone 30 mg per day - Cont Mestinon 60 mg Q6H - Monitor for signs of infection or metabolic derangements - Avoid medications which exacerbate MG such as aminoglycoside, beta blockers, IV Magnesium and Penicillamine. - Neurology will follow - Please reach out with questions/concerns via TT Patient was staffed with Dr Yogi MD the attending neurologist at the time of patient encounter on06/24/2024 Beatriz Christopher MD Neurology PGY-3 Cosigned by Moy Calix MD at 06/24/2024 4:57 PM EST Associated attestation - Moy Calix MD - 06/24/2024 4:57 PM EST I saw and evaluated the patient today. I have reviewed the resident/fellow physician note and agree. documented in this encounter Nursing Notes * Jessi Cheng, RN - 06/27/2024 9:08 AM EST [facility] Nursing Care Plan ID is not [...] Temperature of 70F - 75F in room 4 within normal limits. Humidity of 20% - 60% recorded at 0800, within normal limits, discussed with @ENCPROV@. The provider has made a clinical evaluation to proceed with the procedure. All sterile instruments and supplies being used for the procedures have been visually inspected for any signs of being compromised, including but not limited to, water stains on wrap and instruments, condensation on wrap or instruments, and torn or damaged packaging. * Sesar Anderson RN - 06/26/2024 1:00 AM EST Dual Licensed Skin Assessment completed by Sesar Ingram RN and Ro Grewal RN. The patient is/has a N/A Skin Breakdown (includes non blanchable erythema): No * Luzma Boyd RN - 06/25/2024 3:45 PM EST [facility] Nursing Care Plan ID is not [...] Humidity of 20% - 60% recorded at 1330, within normal limits, discussed with apheresis provider. The provider has made a clinical evaluation to proceed with the procedure. All sterile instruments and supplies being used forthe procedures have been visually inspected for any signs of being compromised, including but not limited to, water stains on wrap and instruments, condensation on wrap or instruments, and torn or damaged packaging. * Ellie Medrano RN - 06/25/2024 2:22 PM EST marketing rotation associate note Name: Giorgio Sosa Date: 06/25/2024 Time: 2:12 PM Procedure: Tunneled Dialysis Catheter Insertion Patient ID band checked using two identifiers. Patient placed on procedure table, supine position, with comfort measures intact and safety strap in place. Hemodynamic monitoring established. Patient denies complaints at current time. RT staff prepares for procedure. 2:21 PM 1 mg Versed given for patient comfort. 2:30 PM Patient prepped and ready. 2:36 PM 1 mg Versed given for patient comfort. 2:40 PM Timeout performed by Tracee Ospina PA-C. Correct catheter/tube size verbalized and verified during timeout. 2:41 PM Procedure started by Tracee Ospina PA-C, and scrubbed RT Jose D Worley Ultrasound utilized for anatomical analysis of patient and access needle guidance. 1% buffered lidocaine given by doctor at right neck site. 2:43 PM 1 mg Versed given for patient comfort. Access obtained. Guidewire inserted. Images obtained. 2:45 PM 1% buffered lidocaine and lidocaine with Epi given by doctor at right chest site. 2:51 PM Catheter placed, see Central Line Note. Images obtained. All ports with positive blood return. Ports flushed. 2:52 PM Sutures placed. 2:55 PM Area cleaned. Stat Seal applied to site. Gel Chlorhexidine Tegaderm dressing applied. Lumens locked with sodium citrate. Blue caps applied. Lumens wrapped in gauze and tape. Patient tolerated procedure well without complications. All wires, catheters, sheaths and other devices have been inspected prior to the procedure for damage. This has been confirmed by the scrubbed RT and the operating physician. All items not intended to remain in the patient have been inspected, accounted for and have been removed from the patient atthe end of the procedure. This has been confirmed by the scrubbed RT and the operating physician. Pt did not receive conscious sedation for their procedure. Total medications given Versed: 3 mg Sodium Citrate: 3.6 mL 1% buffered lidocaine: 10 mL Lidocaine with Epi: 10 mL Please see doctor's operative note for additional details. * Bonnie Toledo RN - 06/24/2024 10:15 AM EST PT ADMITTED TO [facility] 545. PT WALKED FROM STRETCHER TO BED SAND DID WELL. 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 [place] [facility] [place] ORIENTED TO CALL GARCIA, TV REMOTE, BED CONTROLS. PT VERBALIZED UNDERSTANDING OF SAME. CCM TEAM AWARE OF PTS ARRIVAL. documented in this encounter Miscellaneous Notes * Ancillary Progress Note - Sharifa Yuan SLP - 06/27/2024 12:01 PM EST PROGRESS NOTE - Speech-Language Pathology [address] [address] Name: Giorgio Sosa Location: [address] Date: 06/27/2024 Time: 12:01 PM Patient Status: Inpatient Insurance: Payor: MEDICARE / Plan: MEDICARE A AND B / Product Type: *No Product type* / Patient Age: [age] year old Pt seen this date for dysphagia f/u Pt last seen 06/26 with recommendations for soft & bite sized, thin liquids Pt reports tolerating diet well Utilized liquid wash strategy when he felt globus sensation in pharynx Pt denied trials of more advanced textures today Pt's daughter present for session Pt and daughter asking for education regarding soft & bite sized diet and how to manage diet athome DRILLING FIELD OPERATOR provided hand out of ISSDI diet level 6 with information regarding examples of foods to try andhow to determine if food is considered SB6 DRILLING FIELD OPERATOR additionally education patient on when to advance diet in home setting Pt's daughter and pt verbally demonstrated understanding Recommend: -Soft and Bite sized solids -Thin liquids -Meds as tolerated -Slow intake, small bites/sips -Downgrade diet if pt demonstrates/reports s/sx of aspiration and consult speech therapy * Ancillary Progress Note - Ana Bustillo RN - 06/27/2024 11:16 AM EST CARE MANAGEMENT - ADULT DISCHARGE NOTE [address] [address] Name: Giorgio Sosa Location: [address] Date: 06/27/2024 Time: 11:16 AM The following coordination of care and discharge plan has been coordinated with the care team, patient, family and/or caregiver according to the patients needs and preferences. Discharge Discharge Second Notice Important Message from Medicare delivered: No (06/27/241114) Was Caregiver/Family/Facility contacted regarding discharge: Yes (06/27/241114) Discharge Transportation: Personal Vehicle;Family/Friends drive (06/27/241114) Date of scheduled discharge transportation: 06/27/24 (06/27/241114) Patient declined post-hospital transition of care recommendation: N/A (06/27/241114) Final Discharge Plan (Complete only at time of Discharge): Home - Self Care (06/27/241114) Narrative: Discharge destination time-out called during BOOST rounds, all parties agreeable with transition plan of care. Giorgio passes speech eval yesterday, tolerating diet well. Anticipate Giorgio to discharge home with no needs and to continue to follow up as outpatient for rest of PLEX sessions (/) at [facility] where he is est with outpatient infusions. * Ancillary Progress Note - Bella Pastor COTA - 06/27/2024 9:54 AM EST Occupational Therapy Progress Note Giorgio Sosa [facility] [place] [id number] 06/27/2024 Attempted to see patient today for Occupational therapy treatment session. Patient currently off the floor at this time for a procedure. Will continue to follow as able. * Ancillary Progress Note - Cee Ahuja PTA - 06/27/2024 9:22 AM EST PROGRESS NOTE - Physical Therapy [facility] [address] Name: Giorgio Sosa Location: [facility] [place]471[place]A Date: 06/27/2024 Time: 9:22 AM Attempted to see patient for physical therapy services and stair training however patient is currently off the karen at ancillary lab medicine making him unavailable for service sat this time. Will continue to follow patient as able. * Care Plan - Jody Davidson RN - 06/26/2024 4:37 PM EST Clinical Goal(s): Pt will be free from falls this shift (06/26/24 0744) Possible barriers to meeting goal(s)/advancing plan of care: generalized weakness Stability of the patient: Moderately stable - low risk of patient condition declining or worsening Summary regarding today's goal(s): Met: pt did not fall Recommendations: continue purposeful hourly rounding * Ancillary Progress Note - Sharifa Yuan SLP - 06/26/2024 2:12 PM EST PROGRESS NOTE - Speech-Language Pathology [facility] [address] Name: Giorgio Sosa Location: [facility] [place]471[place] Date: 06/26/2024 Time: 2:12 PM Patient Status: Inpatient Insurance: Payor: MEDICARE / Plan: MEDICARE A AND B / Product Type: *No Product type* / Patient Age: [age] year old Pt seen this day for dysphagia f/u and swallowing treatment Last seen 06/24 with recommendations for NPO Pt currently NPO with NGT in place Pt received awake and alert, sitting upright on edge of bed Reports feeling ready to eat Presented pt with thin via cup/straw, puree, minced & moist, soft & bite sized, and regularconsistencies Oral phase functional for all consistencies trialed Pharyngeal phase inferred, x1 throat clear following trials of regular solids Pt endorsed globus sensation in throat after trials of solids, however able to clear with liquid wash No overt s/sx of aspiration with any other consistencies DRILLING FIELD OPERATOR educated pt on strategies including slow rate of intake, small bites/sips, and alternate consistencies (I.e. liquid wash) to clear residue from pharynx. Pt endorsed understanding of strategies and implementation of them previously. Recommend: -Soft & Bite sized solids -Thin liquids -Meds whole/crushed in puree -Downgrade diet if pt demonstrates/reports s/sx of aspiration and consult speech therapy ST to continue to follow * Respiratory Progress Note - Hilary Berry RRT - 06/26/2024 11:42 AM EST PDP RE-EVALUATION NOTE - Respiratory Care Services [facility] [address] Name: Giorgio Sosa Location: [facility] [place] Date: 06/26/2024 Time: 11:42 AM Patient Driven Protocol Summary: Re-evaluation . This Treatment Plan and medications will be reviewed by the Primary Care Team for any contraindications. Respiratory Care Treatment Plan Pulmonary Volume Expansion Therapy: Incentive Spirometry PRN to prevent or treat alveolar consolidation and atelectasis. . Secretion Management Treatment: Flutter TherapyPRN to enhance mobilization of secretions. Additional Secretion Management Protocols: CPT PRN to enhance mobilization of secretions. . Respiratory Mechanics: TID -- Vital Capacity and Muscle Strengths (NIF, PEF). The patient will be re-evaluated: within 48 hours. The Triage Level is: (Assessment Score = 0 - 5) Level 5. Triage Level Definitions: Level 1 Severe Respiratory/Airway Compromise Level 2 Moderate Respiratory/Airway Compromise or high risk for pulmonary complications Level 3 Mild Respiratory/Airway Compromise or moderate risk for pulmonary complications Level 4 Episodic Respiratory/Airway Compromise or low risk for pulmonary complications Level 5 No Respiratory/Airway Compromise Triage 1 Triage 2 Triage 3 Triage 4 Triage 5 greater than 20 16 - 20 11 - 15 6 - 10 0 - 5 Medical Record Assessment Clinical Findings Pulmonary Status: 0 - No History Surgical Status: 0 - No Surgical History Chest X-Ray: 0 - Not Performed or performed greater than 3 days ago Assessment Score: 0 Patient Assessment Clinical Findings Respiratory Pattern: 0 - RR 12 - 20; Patient only gets breathless with strenuous exercise. Breath Sounds: 2 - Diminished bilaterally Cough Effectiveness: 0 - Strong non-productive Sputum Production 0 - No sputum production Level of Activity: 2 - Temporarily non-ambulatory O2 needed to keep SpO2 greater than or equal to 92%: 0 - Room Air Assessment Score: 4 Total Assessment Score: 4 Breath Sounds: Inspiratory and expiratory diminished bilaterally.. Cough and Sputum: No cough was present.. Vital Signs: Resp: 18 (06/26/24 1017) Pulse: 72 (06/26/24 1017) Temp: 36.5 C (97.7 F) (06/26/24 1017) BP: 121/69 (06/26/24 1017) SpO2: 94 % (06/26/24 101) PFT: Minimal Predicted IC: 1.0 L. Vital capacity: 2.0 L Negative inspiratory force: 60 cmH2O press Positive expiratory force: 54 cmH2O press . Primary Service: Neurology. Admitting Diagnosis: Myasthenia gravis with exacerbation (HCC) [G70.01] Myasthenia gravis in crisis (HCC) [G70.01] Pulmonary Diagnosis: Neuromuscular Weakness. * Communication - Lorna Streeter MD - 06/25/2024 4:23 PM EST [facility] Fellow Note: In brief, patient is a 74-year-old male with past medical history significant for myasthenia gravis, BPH, prostate cancer who was transferred from [facility] for evaluation and management of myasthenic crisis. Patient assessed at bedside this morning. No acute events overnight. Patient states his ptosis his better, otherwise feels diplopia is unchanged. Denies any new symptoms. Respiratory status stable. Pertinent labs as follows: Chloride 108, BUN 22, magnesium 2.7 No new imaging to review. Physical exam: General: Pleasant, conversant elderly male in no acute distress CV: Regular rate and rhythm, no/gallops/rubs. No JVD Pulmonary: Good inspiratory effort with bilateral air entry appreciated. Clear to auscultation bilaterally, no wheezes/rhonchi/crackles. No accessory muscle use Abdomen: Soft, nontender, nondistended. Normal bowel sounds. Extremities: No peripheral edema, 2+ radial pulses bilaterally, warm and well-perfused Neuro: No gross focal deficits, moving all 4 extremities under own power Active Problems: Myasthenia gravis with exacerbation, adult form (HCC) (POA: Yes) POA = Present On Admission -Neurology consulted: Plan for IR place TDC today, plan to start Plex today, continue prednisone 40mg daily, continue pyridostigmine 60 mg q.6 hours -chest PT and postural drainage q.4 hours, flutter therapy, incentive spirometry -wean supplemental oxygen for goal SpO2 greater than 90% -monitor respiratory mechanics q.6 hours -NG-tube in place, continue tube feeds Lorna Streeter MD Fellow Pulmonary/Critical Care Medicine Cosigned by Fer Marcum MD at 06/25/2024 5:12 PM EST * Ancillary Progress Note - Grace Norwood RN - 06/25/2024 11:22 AM EST CARE MANAGEMENT - ADULT INITIAL SCREENING [facility] [address] Name: Giorgio Sosa Location: [facility] [place]545[place] Date: 06/25/2024 Time: 11:22 AM Discussed patient with the interdisciplinary care team. This Byproducts Operator performed a chart review and met with pt and daughter at bedside to complete admission screen and assessed needs for transition planning. The lpn care manager role and services were explained and emotional support was provided. Chief Complaint: No chief complaint on file. Prior Living Arrangements What was your living situation prior to admission/observation?: Independently (06/24/24 0926) Living Quarters: House (06/25/24 1114) Number of steps to enter living quarters:: 6 with railing (06/25/241113) Do you have serious difficulty walking or climbing stairs? (5 years old or older): No (06/24/24927) History of falling: No (06/25/24799) Prior Level of Functioning Describe the patient's ability prior to admission/observation to perform ADLs: Performs independently (06/24/24927) Describe the patient's mobility status prior to admission: Patient ambulates independently (06/24/24927) Patient uses assistive device: Yes (06/24/24927) If yes, choose:: Cane (at times) (06/24/24927) Caregiver Information Emergency Contacts None on File Other Contacts Name Relation Home Work Mobile EDEL ESCOBAR Adult Child [phone] Gerald Sosa Adult Child [phone] Risk Stratification/Psychosocial/Care Gaps Risk Stratification Psycho Social / Medical Concerns Identified: Adjustment to illness/injury;Multiple Comorbidities (06/25/241113) Readmission Risk Score: 11.35 (06/25/24800) AM-PAC Score With Stairs : 24 (06/25/24799) Prior to Admission Services Services Prior to Admission TRANSFER TABLE OPERATOR Services (Services received within the last 30 days with exception, Psych within last two years): Durable Medical Equipment (06/25/241113) TRANSFER TABLE OPERATOR Durable Medical Equipment (DME) in home: Cane;Raised toilet seat;Shower chair/bench;Grab bars/Rails (06/25/241113) [place] Dept[place] 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 Uses a cane when MG flairs. No HH or recent rehab stays. Has done OP rehab with [place] (near him) in past. DME listed above in assessment. RX [facility] on [facility]. Plan per IDTs is apheresis here for a few sessions then set up for OP. In speaking with pt and dtr, the apheresis will be here. Pt will then travel here for it. There is family to assist him and pt would likely be staying with his daughter post dc [place] [facility] Cm reached to Apheresis team/role. They will be doing the line care/likely OP QOD. But at this time no need for HH for line care post dc. Should pt feel he needs HH for other reasons, CM can assist to set up. For further screening information, please refer to the Care Management flow document. * Communication - Tate Suarez DO - 06/25/2024 12:36 AM EST Interventional Radiology Note [address] [address] Name: Giorgio Sosa Location: [address] Date: 06/25/2024 Time: 12:36 AM HPI: Giorgio Sosa is a 74 year old male patient admitted for a myasthenia gravis crises. IR was contacted for TDC placement for plasmapheresis. Given the patient's ICU status and the high volume of cases in IR, recommend placing a temporary dialysis catheter for now. Please contact IR if a temporary line cannot be placed. Cosigned by Bowen Villanueva MD at 06/25/2024 6:34 AM EST Associated attestation - Bowen Villanueva MD - 06/25/2024 6:34 AM EST I did not see the patient, but I have reviewed the resident/fellow physician documentation and was readily available on date of service. * Ancillary Progress Note - Tr Sosa, SUB PRIOR - 06/24/2024 10:15 AM EST PATIENT DRIVEN PROTOCOL - Respiratory Care Services [address] [address] Name: Giorgio Sosa Location: [facility] [place] Date: 06/24/2024 Time: 10:15 AM Patient Driven Protocol Summary: Initial evaluation performed. This Treatment Plan and medications will be reviewed by the Primary Care Team for any contraindications. Respiratory Care Treatment Plan Pulmonary Volume Expansion Therapy: Incentive Spirometry PRN to enhance mobilization of secretions and prevent or treat alveolar consolidation and atelectasis. . Secretion Management Treatment: Flutter TherapyPRN to enhance mobilization of secretions and prevent or treat alveolar consolidation and atelectasis. Additional Secretion Management Protocols: CPT PRN to enhance mobilization of secretions and prevent or treat alveolar consolidation and atelectasis. . Respiratory Mechanics: Vital Capacity and Muscle Strengths (NIF, PEF) Q6 per Neurology. The patient will be re-evaluated: within 48 hours. The Triage Level is: (Assessment Score = 0 - 5) Level 5. Triage Level Definitions: Level 1 Severe Respiratory/Airway Compromise Level 2 Moderate Respiratory/Airway Compromise or high risk for pulmonary complications Level 3 Mild Respiratory/Airway Compromise or moderate risk for pulmonary complications Level 4 Episodic Respiratory/Airway Compromise or low risk for pulmonary complications Level 5 No Respiratory/Airway Compromise Triage 1 Triage 2 Triage 3 Triage 4 Triage 5 greater than 20 16 - 20 11 - 15 6 - 10 0 - 5 Medical Record Assessment Clinical Findings Pulmonary Status: 3 - Pulm Impairment (acute or chronic) w/o exacerbation, or 1 - 2 rib fractures Surgical Status: 0 - No Surgical History Chest X-Ray: 0 - Not Performed or performed greater than 3 days ago Assessment Score: 3 Patient Assessment Clinical Findings Respiratory Pattern: 0 - RR 12 - 20; Patient only gets breathless with strenuous exercise. Breath Sounds: 0 - Clear to auscultation Cough Effectiveness: 0 - Strong non-productive Sputum Production: 0 - No sputum production Level of Activity: 2 - Temporarily non-ambulatory O2 needed to keep SpO2 greater than or equal to 92%: 0 - Room Air Assessment Score: 2 Total Assessment Score: 5 Breath Sounds: Inspiratory and expiratory clear bilaterally.. Cough and Sputum: An effective cough produced no sputum... CXR: Not performed. Vital Signs: Resp: 20 (06/24/24 0900) Pulse: 63 (06/24/2400) Temp: 36 C (96.8 F) (06/24/2415) BP: 136/61 (06/24/2400) SpO2: 100 % (06/24/24899) PFT: Inspiratory capacity: 1.38L. Primary Service: Critical Care Red. Admitting Diagnosis: Myasthenia gravis with exacerbation (HCC) [G70.01] Myasthenia gravis in crisis (HCC) [G70.01] Pulmonary Diagnosis: Neuromuscular Weakness. Prescriptions/Home Medications/Durable Medical Equipment: None. documented in this encounter Plan of Treatment Upcoming Encounters Date Type Department Care Team (Late st Contact Info) Description 06/28/2024 7:15 AM EST Pharmacy Neurology [address] [place] [phone] Nathan, Pharmacist Neurology [address] [place] [address], [place] [address] 06/29/2024 2:00 PM EST Office Visit Apheresis Clinic, [place] [place] [phone] Provider, Apheresis [address] [place] [address] 07/06/2024 9:30 AM EST Hem/Onc Treatment Hematology/Oncology Treatment, [address], [place] [phone] Krista, Chair [address] [place] [address] 07/13/2024 9:30 AM EST Hem/Onc Treatment Hematology/Oncology Treatment, [place] [address] [facility], [place] [phone] Krista, Chair [address] [place] [address] 07/20/2024 9:00 AM EST Telemedicine Neurology [address] [place] [phone] Nathan, Pharmacist Neurology [address] [place] [address] 07/25/2024 11:00 AM EST Office Visit Neurology [address] [place] [phone] Maksim Wright MD [address] [place] [address] 09/13/2024 11:20 AM EDT Office Visit [facility] [address] [place] [address] Theresa Johnson MD [address] [facility] [place] [address] 12/11/2024 11:15 AM EDT Office Visit Urology, [facility] [address] [facility] [place] [address] Ramesh Phan MD [address] [place] [address] 05/30/2025 11:15 AM EST Office Visit [facility] [address] [place] [address] Marshall Henson MD [address] [facility] [place] [address] Pending Results Name Type Priority Associated Diagnoses Date /Time IR VENOUS ACCESS NON-MEDIPORT Medical Imaging Routine 06/25/2024 2:52 PM EST Central Line Procedures Routine 06/25/2024 2 :23 PM EST Scheduled Orders Name Type Priority Associated Diagnoses Orde r Schedule EKG EKG Routine Chest pain One Time for 1 Occurrences starting 06/24/2024 until 06/24/2024 Scheduled Procedures Name Priority Associated Diagnoses Date/Ti me COLONOSCOPY FLEXIBLE PROXIMAL DIAGNOSTIC Recall History of colon polyps Scheduled Referrals Name Type Priority Associated Diagnoses Orde r Schedule APHERESIS REFERRAL OP Referral Within 3 days (urgent) Myasthenia gravis with exacerbation, adult form (HCC) Ordered: 06/27/2024 Health Maintenance Due Date Last Done Comments [...] this encounter Medical Devices Implanted Type Area Cocktail Server Device Identifier Shelf Expiration Date Model / Serial / Lot Port Powerflow 9.6fr - [id number] Implanted:Qty : 1 on 03/15/2023 at [employer] [facility] CR BARD : PERIPHERAL VASCULAR [id number] 10/21/2023 [id number] / / [id number] Power Port 8fr Sngl Lumen Plas - [id number] Implanted:Qty : 1 on 03/15/2023 at [email or web address] [facility] CR [facility] : PERIPHERAL VASCULAR [id number] 03/22/2024 [id number] / / [id number] Lens Li61ao 13.00mm 18.00 - [id number] - [id number] Implanted:Qty : 1 on 02/02/2024 by Andre Swartz MD at OR [facility] Right: Eye [employer] 08/20/2028 [id number] / [id number] / [id number] Lens Li61ao 13.00mm 17.50 - [id number] - [id number] Implanted:Qty : 1 on 02/16/2024 by Andre Swartz MD at OR [facility] Left: Eye [employer] 07/20/2028 [id number] / [id number] / [id number] documented as of this encounter Procedures Procedure Name Priority Date/Time Associated Diagnosis Comments BASIC METABOLIC PANEL Routine 06/27/2024 5:26 AM EST PHOSPHORUS Routine 06/27/2024 5:26 AM EST CBC Routine 06/27/2024 5:26 AM EST MAGNESIUM Routine 06/27/2024 5:26 AM EST XR ABDOMEN 1 VIEW Routine 06/26/2024 9:36 AM EST SARS-COV-2 (COVID-19), NAAT STAT 06/26/2024 8:34 AM EST BASIC METABOLIC PANEL Routine 06/26/2024 6:42 AM EST PHOSPHORUS Routine 06/26/2024 6:42 AM EST CBC Routine 06/26/2024 6:42 AM EST MAGNESIUM Routine 06/26/2024 6:42 AM EST GLUCOSE METER, POINT OF CARE SHAWN 06/26/2024 6:15 AM EST GLUCOSE METER, POINT OF CARE SHAWN 06/26/2024 12:01 AM EST IR VENOUS ACCESS NON-MEDIPORT Routine 06/25/2024 2:52 PM EST Procedure Note - Gómez Jerome MD / Tracee Ospina PA-C - 06/25/2024 2:52 PM ESTThis note is in progress. PROCEDURE: Tunneled hemodialysis catheter placement. INDICATION: 74 y/o male with PMHx of myasthenia gravis, BPH, prostatecancer recently transferred from [facility] for management of myasthenic crisisin need of central venous access for apheresis ATTENDING (OPERATING PHYSICIAN): Gómez Jerome MD SCRUBBED PROVIDER (OPERATING PROVIDER): Tracee Ospina PA-C SUPPORTING PROVIDER (COMMUNITY SERVICES MANAGER): RT Brooke. CONSENT: After a detailed discussion of the procedure, risks, benefits andalternative treatment options, informed consent was obtained. TIME OUT: A time out procedure was performed. The patient's identificationwas verified. Informed consent with agreement of procedure, site andposition was obtained. All necessary equipment was available prior toprocedure. CONTRAST: No contrast was administered. COMPLICATIONS: None. ANESTHESIA: Local lidocaine. IV Versed. SEDATION TIME: N/A MEDICATIONS: See MAR PROCEDURE DESCRIPTION: Ultrasound was used to evaluate the right internaljugular vein. The neck and chest were prepped and draped in the usualsterile fashion. Using real-time ultrasound guidance, the internal jugularvein was punctured utilizing a micropuncture needle. Ultrasound imagesdemonstrated the micropuncture needle tip in the internal jugular vein.Digital ultrasound images were acquired and digitally archived. A 2ndincision was then made in the upper chest. A subcutaneous tunnel wascreated from the incision site in the chest directed to the internaljugular access above the clavicle. A 14.5 Fr 23 cm cuffed dual lumenhemodialysis catheter was placed in the internal jugular access throughthe tunnel under fluoroscopic guidance. Fluoroscopic images were digitallyarchived. The catheter was secured and an occlusive dressing wasapplied. The procedure was performed under the direct supervision of Dr. Jerome whowas immediately available for the entire procedure. FINDINGS: Ultrasound shows a compressible and anechoic right internal jugular vein.The catheter tip is in the right atrium. IMPRESSION IMPRESSION: Successful placement of a tunneled hemodialysis catheter. PLAN: The patient should remain upright with head of bed at least 30degrees for 4 hours. The catheter may be used immediately. ANE [facility] CENTRAL LINE Routine 06/25/2024 2:23 PM EST BASIC METABOLIC PANEL Routine 06/25/2024 3:56 AM EST PHOSPHORUS Routine 06/25/2024 3:56 AM EST CBC Routine 06/25/2024 3:56 AM EST MAGNESIUM Routine 06/25/2024 3:56 AM EST ABO/RH STAT 06/24/2024 7:36 PM EST TYPE AND SCREEN STAT 06/24/2024 7:36 PM EST BLOOD GAS, ARTERIAL STAT 06/24/2024 1:05 PM EST TROPONIN T, HIGH SENSITIVITY STAT 06/24/2024 10:06 AM EST PROCALCITONIN STAT 06/24/2024 10:06 AM EST BLOOD GAS, VENOUS STAT 06/24/2024 10:06 AM EST HEPATIC FUNCTION PANEL STAT 06/24/2024 10:06 AM EST BASIC METABOLIC PANEL STAT 06/24/2024 10:06 AM EST PHOSPHORUS STAT 06/24/2024 10:06 AM EST LACTATE STAT 06/24/2024 10:06 AM EST CALCIUM, IONIZED, WHOLE BLOOD STAT 06/24/2024 10:06 AM EST CBC STAT 06/24/2024 10:06 AM EST MAGNESIUM STAT 06/24/2024 10:06 AM EST documented in this encounter Results * PHOSPHORUS (06/27/2024 5:26 AM EST) Phosphorus 2.7 2.5 - 4.8 mg/dL 06/27/2024 6:07 AM EST [facility]ORY [facility] Blood Venous blood specimen / Unknown Venipuncture / Unknown 06/27/2024 5:26 AM EST 06/27/2024 5:35 AM EST us E Rich Berger MD LAB BLOOD ORDERABLES F inal Result [facility]ATORY [facility] [address] [place] [address] * MAGNESIUM (06/27/2024 5:26 AM EST) Pathologist [facility] Magnesium 2.5 1.5 - 2.6 mg/dL 06/27/2024 6:07 AM EST [facility] Blood Venous blood specimen / Unknown Venipuncture / Unknown 06/27/2024 5:26 AM EST 06/27/2024 5:35 AM EST us E Rich Berger MD LAB BLOOD ORDERABLES F inal Result LABORATORY [facility] [address] [place] [address] * (ABNORMAL) BASIC METABOLIC PANEL (06/27/2024 5:26 AM EST) Pathologist [facility] BUN 25(H) 6 - 20 mg/dL 06/27/2024 6:07 AM EST LAB[facility]ORY [facility] CREATININE 1.0 0.6 - 1.2 mg/dL 06/27/2024 6:07 AM EST [facility] EGFR 81 >=60 mL/min 06/27/2024 6:07 AM EST [facility] Comment:eGFR is calculated b ased on the CKD-EPI 2020 equation. SODIUM 142 135 - 146 mmol/L 06/27/2024 6:07 AM EST [facility] POTASSIUM 3.6 3.5 - 5.1 mmol/L 06/27/2024 6:07 AM EST LAB[facility]ORY [facility] CHLORIDE 111(H) 98 - 107 mmol/L 06/27/2024 6:07 AM EST [facility] CO2 23 22 - 32 mmol/L 06/27/2024 6:07 AM EST [facility] ANION GAP 8 7 - 15 mmol/L 06/27/2024 6:07 AM EST [facility] GLUCOSE 85 70 - 120 mg/dL 06/27/2024 6:07 AM EST [facility] CALCIUM 8.5 8.4 - 10.2 mg/dL 06/27/2024 6:07 AM EST [facility] Blood Venous blood specimen / Unknown Venipuncture / Unknown 06/27/2024 5:26 AM EST 06/27/2024 5:35 AM EST us E Rich Berger MD LAB BLOOD ORDERABLES F inal Result [facility] [address] [place] [address] * CBC (06/27/2024 5:26 AM EST) WBC 10.57 4.00 - 10.80 K/uL 06/27/2024 5:44 AM EST LAB[facility]ORY [facility] RBC 4.78 4.50 - 5.25 M/uL 06/27/2024 5:44 AM EST LAB[facility] HGB 15.3 14.0 - 16.8 g/dL 06/27/2024 5:44 AM EST [facility] HCT 45.2 40.0 - 48.4 % 06/27/2024 5:44 AM EST [facility] MCV 94.6 82.0 - 99.5 fL 06/27/2024 5:44 AM EST [facility] MCH 32.0 27.0 - 34.0 pg 06/27/2024 5:44 AM EST [facility] MCHC 33.8 32.0 - 36.0 g/dL 06/27/2024 5:44 AM EST [facility] RDW 13.2 11.5 - 15.5 % 06/27/2024 5:44 AM EST [facility] PLT 211 140 - 400 K/uL 06/27/2024 5:44 AM EST [facility] MPV 9.9 6.6 - 11.1 fL 06/27/2024 5:44 AM EST [facility] nRBCs 0 <=0 /100 WBCs 06/27/2024 5:44 AM EST [facility] Blood Venous blood specimen / Unknown Venipuncture / Unknown 06/27/2024 5:26 AM EST 06/27/2024 5:35 AM EST us E Rich Berger MD LAB BLOOD ORDERABLES F inal Result LABORATORY [facility] [address] [place] [address] * XR ABDOMEN 1 VIEW (06/26/2024 9:36 AM EST) Anatomical Region Laterality Modality Abdomen, Pelvis Computed Radiogr aphy 06/26/2024 10:4 2 AM EST Impressions 06/26/2024 10:40 AM EST IMPRESSION: Enteric tube terminates in the stomach. Narrative 06/26/2024 10:40 AM EST EXAM: EXAM: XR ABDOMEN 1 VIEW DATE TIME: 06/26/2024 - 06/26/2024 9:36 am HISTORY: 74 y/o M 74 yo M with feeding tube, change in depth noted, x ray for placement. TECHNIQUE: One view of the abdomen. COMPARISON: CT abdomen pelvis 12/08/2021. FINDINGS: Enteric tube terminates in the stomach. No dilated loops of small bowel to suggest small bowel obstruction. A few small calcifications overlying the pelvis may reflect phleboliths. Degenerative changes of the spine. Procedure Note Tavo Null MD - 06/26/2024 EXAM: EXAM: XR ABDOMEN 1 VIEW DATE TIME: 06/26/2024 - 06/26/2024 9:36 am HISTORY: 74 y/o M 74 yo M with feeding tube, change in depth noted, x ray forplacement. TECHNIQUE: One view of the abdomen. COMPARISON: CT abdomen pelvis 12/08/2021. FINDINGS: Enteric tube terminates in the stomach. No dilated loops of small bowel to suggest small bowel obstruction. A few small calcifications overlying the pelvis may reflect phleboliths. Degenerative changes of the spine. IMPRESSION IMPRESSION: Enteric tube terminates in the stomach. us E Rich Berger MD RADIOLOGY (RAD GENERAL ) Final Result * SARS-COV-2 (COVID-19), NAAT (06/26/2024 8:34 AM EST) SARS-CoV-2 (COVID-19) Result Negative Negative 06/26/2024 10:28 AM EST [facility]ORY [facility] Comment: 2019 Novel Coronavirus not detected. This express test was developed and its performance characteristics determined by [facility]. It has not been cleared or approved by the U.S. Food and Drug Administration (FDA). FDA does not require this test to go thru premarket FDA review. This test is used for clinical purposes. It should not be regarded as investigational or for research. This laboratory is certified under the Clinical Laboratory Improvement Amendments (CLIA) as qualified to perform high complexity clinical laboratory testing. This test is a nucleic acid amplification test (NAAT), a reverse transcriptase polymerase chain reaction (RT-PCR) test, or a Centers for Disease Control- acceptable equivalent. The test is performed in a high complexity Clinical Laboratory Improvement Amendments-(CLIA) certified laboratory. The test is acceptable for SARS-CoV-2 diagnosis, surveillance, and travel within the [place] and to most countries. Please check with local testing authorities about requirements before travel. The validation of bronchial specimens, tracheal aspirates, and sputum for this assay was developed and performance characteristics determined by [facility]. The validation of alternate specimen types has not been cleared or approved by the U.S. Food and Drug Administration (FDA). It has been determined that such clearance is not necessary. Upper Respiratory Mid-turbinate nasal swab / Unknown Non-blood Collection / Unknown 06/26/2024 8:34 AM EST 06/26/2024 9:13 AM EST us E Rich Berger MD LAB MICRO - GENERAL OR DERABLES Final Result LABORATORY [facility] [address] [place] [address] * PHOSPHORUS (06/26/2024 6:42 AM EST) Pathologist [facility] Phosphorus 3.0 2.5 - 4.8 mg/dL 06/26/2024 7:17 AM EST [facility] Blood Venous blood specimen / Unknown Venipuncture / Unknown 06/26/2024 6:42 AM EST 06/26/2024 6:48 AM EST us E Rich Berger MD LAB BLOOD ORDERABLES F inal Result Performing Organization Address City/[facility]/ZIP Co de Phone Number LABORATORY [facility] [address] [place] [address] * MAGNESIUM (06/26/2024 6:42 AM EST) Pathologist [facility] Magnesium 2.5 1.5 - 2.6 mg/dL 06/26/2024 7:17 AM EST [facility] Blood Venous blood specimen / Unknown Venipuncture / Unknown 06/26/2024 6:42 AM EST 06/26/2024 6:48 AM EST us E Rich Berger MD LAB BLOOD ORDERABLES F inal Result Performing Organization Address [facility] de Phone Number LABORATORY [facility] [address] [place] [address] * (ABNORMAL) BASIC METABOLIC PANEL (06/26/2024 6:42 AM EST) Pathologist [facility] BUN 28(H) 6 - 20 mg/dL 06/26/2024 7:17 AM EST LAB[facility]ORY [facility] CREATININE 1.0 0.6 - 1.2 mg/dL 06/26/2024 7:17 AM EST [facility] EGFR 78 >=60 mL/min 06/26/2024 7:17 AM EST [facility] Comment:eGFR is calculated b ased on the CKD-EPI 2020 equation. SODIUM 144 135 - 146 mmol/L 06/26/2024 7:17 AM EST LABORATORY [facility] POTASSIUM 3.9 3.5 - 5.1 mmol/L 06/26/2024 7:17 AM EST LABORATORY [facility] CHLORIDE 112(H) 98 - 107 mmol/L 06/26/2024 7:17 AM EST LAB[facility]ORY [facility] CO2 21(L) 22 - 32 mmol/L 06/26/2024 7:17 AM EST [facility] ANION GAP 11 7 - 15 mmol/L 06/26/2024 7:17 AM EST [facility] GLUCOSE 108 70 - 120 mg/dL 06/26/2024 7:17 AM EST [facility] CALCIUM 8.3(L) 8.4 - 10.2 mg/dL 06/26/2024 7:17 AM EST LAB[facility]ORY [facility] Blood Venous blood specimen / Unknown Venipuncture / Unknown 06/26/2024 6:42 AM EST 06/26/2024 6:48 AM EST us E Rich Berger MD LAB BLOOD ORDERABLES F inal Result LABORATORY [facility] [address] [place] [address] * (ABNORMAL) CBC (06/26/2024 6:42 AM EST) Pathologist [facility] WBC 12.63(H) 4.00 - 10.80 K/uL 06/26/2024 6:59 AM EST LAB[facility]ATORY [facility] RBC 5.24 4.50 - 5.25 M/uL 06/26/2024 6:59 AM EST LAB[facility]ORY [facility] HGB 16.5 14.0 - 16.8 g/dL 06/26/2024 6:59 AM EST LAB[facility]ORY [facility] HCT 49.2(H) 40.0 - 48.4 % 06/26/2024 6:59 AM EST LAB[facility] MCV 93.9 82.0 - 99.5 fL 06/26/2024 6:59 AM EST LAB[facility] MCH 31.5 27.0 - 34.0 pg 06/26/2024 6:59 AM EST LAB[facility] MCHC 33.5 32.0 - 36.0 g/dL 06/26/2024 6:59 AM EST LAB[facility] RDW 13.3 11.5 - 15.5 % 06/26/2024 6:59 AM EST LAB[facility]ORY [facility] PLT 245 140 - 400 K/uL 06/26/2024 6:59 AM EST LAB[facility]ORY [facility] MPV 9.8 6.6 - 11.1 fL 06/26/2024 6:59 AM EST [facility]ORY [facility] nRBCs 0 <=0 /100 WBCs 06/26/2024 6:59 AM EST [facility] Blood Venous blood specimen / Unknown Venipuncture / Unknown 06/26/2024 6:42 AM EST 06/26/2024 6:48 AM EST us E Rich Berger MD LAB BLOOD ORDERABLES F inal Result [facility]ATORY [facility] [address] [place] [address] * (ABNORMAL) GLUCOSE METER, POINT OF CARE (06/26/2024 6:15 AM EST) Glucose - POCT 128(H) 70 - 120 mg/dL 06/26/2024 6:36 AM EST [facility] Blood Whole blood specimen / Unknown 06/26/2024 6:15 AM EST 06/26/2024 6:36 AM EST us Hawa Sneed MD LAB POINT OF CARE TEST DOCKED DEVICE UNSOLICITED RESULTS Final Result Performing Organization Address [facility]/ZIP Co de Phone Number [facility] [address] [place] [address] * GLUCOSE METER, POINT OF CARE (06/26/2024 12:01 AM EST) Glucose - POCT 113 70 - 120 mg/dL 06/26/2024 12:04 AM EST [facility] Blood Whole blood specimen / Unknown 06/26/2024 12:01 AM EST 06/26/2024 12:04 AM EST us Hawa Sneed MD LAB POINT OF CARE TEST DOCKED DEVICE UNSOLICITED RESULTS Final Result Performing Organization Address City/[facility]/ZIP Co de Phone Number [facility] [address] [place] [address] * PHOSPHORUS (06/25/2024 3:56 AM EST) Phosphorus 3.5 2.5 - 4.8 mg/dL 06/25/2024 4:48 AM EST LABORATORY [facility] Blood Venous blood specimen / Unknown Venipuncture / Unknown 06/25/2024 3:56 AM EST 06/25/2024 4:16 AM EST us E Rich Berger MD LAB BLOOD ORDERABLES F inal Result Performing Organization Address [facility] Co de Phone Number LABORATORY [facility] [address] [place] [address] * (ABNORMAL) MAGNESIUM (06/25/2024 3:56 AM EST) Magnesium 2.7(H) 1.5 - 2.6 mg/dL 06/25/2024 4:48 AM EST [facility] Blood Venous blood specimen / Unknown Venipuncture / Unknown 06/25/2024 3:56 AM EST 06/25/2024 4:16 AM EST us E Rich Berger MD LAB BLOOD ORDERABLES F inal Result Performing Organization Address [facility] de Phone Number LABORATORY [facility] [address] [place] [address] * (ABNORMAL) BASIC METABOLIC PANEL (06/25/2024 3:56 AM EST) BUN 22(H) 6 - 20 mg/dL 06/25/2024 4:48 AM EST LAB[facility]ORY [facility] CREATININE 1.0 0.6 - 1.2 mg/dL 06/25/2024 4:48 AM EST LABORATORY [facility] EGFR 79 >=60 mL/min 06/25/2024 4:48 AM EST [facility]ORY [facility] Comment:eGFR is calculated b ased on the CKD-EPI 2020 equation. SODIUM 143 135 - 146 mmol/L 06/25/2024 4:48 AM EST LAB[facility] POTASSIUM 3.9 3.5 - 5.1 mmol/L 06/25/2024 4:48 AM EST LAB[facility] CHLORIDE 108(H) 98 - 107 mmol/L 06/25/2024 4:48 AM EST LAB[facility] CO2 25 22 - 32 mmol/L 06/25/2024 4:48 AM EST [facility] ANION GAP 10 7 - 15 mmol/L 06/25/2024 4:48 AM EST [facility] GLUCOSE 88 70 - 120 mg/dL 06/25/2024 4:48 AM EST [facility] CALCIUM 9.1 8.4 - 10.2 mg/dL 06/25/2024 4:48 AM EST LAB[facility] Blood Venous blood specimen / Unknown Venipuncture / Unknown 06/25/2024 3:56 AM EST 06/25/2024 4:16 AM EST us E Rich Berger MD LAB BLOOD ORDERABLES F inal Result LABORATORY [facility] [address] [place] [address] * CBC (06/25/2024 3:56 AM EST) WBC 8.81 4.00 - 10.80 K/uL 06/25/2024 4:29 AM EST LAB[facility]ATORY [facility] RBC 5.03 4.50 - 5.25 M/uL 06/25/2024 4:29 AM EST LAB[facility] HGB 15.4 14.0 - 16.8 g/dL 06/25/2024 4:29 AM EST LAB[facility] HCT 48.1 40.0 - 48.4 % 06/25/2024 4:29 AM EST LAB[facility] MCV 95.6 82.0 - 99.5 fL 06/25/2024 4:29 AM EST LAB[facility] MCH 30.6 27.0 - 34.0 pg 06/25/2024 4:29 AM EST [facility] MCHC 32.0 32.0 - 36.0 g/dL 06/25/2024 4:29 AM EST [facility] RDW 13.3 11.5 - 15.5 % 06/25/2024 4:29 AM EST LAB[facility] PLT 265 140 - 400 K/uL 06/25/2024 4:29 AM EST LAB[facility]ORY [facility] MPV 9.8 6.6 - 11.1 fL 06/25/2024 4:29 AM EST LABORATORY C nRBCs 0 <=0 /100 WBCs 06/25/2024 4:29 AM EST LAB[facility]ATORY [facility] Blood Venous blood specimen / Unknown Venipuncture / Unknown 06/25/2024 3:56 AM EST 06/25/2024 4:16 AM EST us E Rich Berger MD LAB BLOOD ORDERABLES F inal Result Performing Organization Address City/[facility] Co de Phone Number LABORATORY [facility] [address] [place] [address] * ABO/RH (06/24/2024 7:36 PM EST) ABO A 06/24/2024 9:03 PM EST LAB[facility]ORY [facility] BLOOD B[facility] Rh Positive 06/24/2024 9:03 PM EST LAB[facility] Blood Venous blood specimen / Unknown Venipuncture / Unknown 06/24/2024 7:36 PM EST 06/24/2024 7:42 PM EST us Sharifa Stewart DO LAB BLOOD BANK TEST ORDERABLES Final Result Performing Organization Address [facility] de Phone Number LABORATORY [facility] B[facility]OD [facility] [address] [place] [address] * TYPE AND SCREEN (06/24/2024 7:36 PM EST) ABO A 06/24/2024 8:41 PM EST LABORATORY C BLOOD BANK Rh Positive 06/24/2024 8:41 PM EST LAB[facility]ORY [facility] Red Blood Cell Antibody Screen Negative 06/24/2024 8:41 PM EST LABORATORY [facility] Specimen Expiration Date 06/27/2024 23:59 06/24/2024 8:41 PM EST LAB[facility]ATORY [facility] Blood Venous blood specimen / Unknown Venipuncture / Unknown 06/24/2024 7:36 PM EST 06/24/2024 7:42 PM EST us E Rich Berger MD LAB BLOOD BANK TEST OR DERABLES Final Result [facility]ORY [facility] [address] [place] [address] * BLOOD GAS, ARTERIAL (06/24/2024 1:05 PM EST) Temperature 37.0 C 06/24/2024 1:21 PM EST LABORATORY [facility] pH, Arterial 7.406 7.350 - 7.450 units 06/24/2024 1:21 PM EST LAB[facility]ORY [facility] pCO2, Arterial 41.2 35.0 - 45.0 mmHg 06/24/2024 1:21 PM EST LAB[facility] pO2, Arterial 89.3 75.0 - 100.0 mmHg 06/24/2024 1:21 PM EST LAB[facility]ORY [facility] Base Excess, Arterial 1.0 -2.0 - 2.0 mmol/L 06/24/2024 1:21 PM EST LAB[facility] HGB 16.1 14.0 - 16.8 g/dL 06/24/2024 1:21 PM EST LAB[facility] Oxyhemoglobin, Arterial 95.3 94.0 - 99.0 % total Hgb 06/24/2024 1:21 PM EST LAB[facility]ORY [facility] Carboxyhemoglob in, Whole Blood 1.2 <=1.5 % total Hgb 06/24/2024 1:21 PM EST LABORATORY [facility] Comment:Smokers: 0-9.0 % Methemoglobin, Whole Blood 0.9 <=1.5 % total Hgb 06/24/2024 1:21 PM EST LAB[facility] Reduced Hemoglobin, Arterial 2.6 0.0 - 5.0 % total Hgb 06/24/2024 1:21 PM EST LAB[facility] O2 Content, Arterial 21.5 15.0 - 24.0 %vol 06/24/2024 1:21 PM EST LAB[facility] FiO2 Not Provided % 06/24/2024 1:21 PM EST [facility] O2 Flow, Arterial Not Provided L/min 06/24/2024 1:21 PM EST LAB[facility] Bicarbonate, Whole Blood 25.3 23.0 - 31.0 mmol/L 06/24/2024 1:21 PM EST LAB[facility]ORY [facility] Blood Arterial blood specimen / Unknown Arterial Puncture / Unknown 06/24/2024 1:05 PM EST 06/24/2024 1:16 PM EST us Niki Nation DO LAB BLOOD ORDERABLES Final Res ult LABORATORY [facility] [address] [place] [address] * (ABNORMAL) BLOOD GAS, VENOUS (06/24/2024 10:06 AM EST) Temperature 37.0 C 06/24/2024 10:18 AM EST LAB[facility]ATORY [facility] pH, Venous 7.351 7.320 - 7.430 units 06/24/2024 10:18 AM EST LAB[facility]ORY [facility] pCO2, Venous 54.9 40.0 - 60.0 mmHg 06/24/2024 10:18 AM EST LAB[facility] pO2, Venous 26.7 25.0 - 50.0 mmHg 06/24/2024 10:18 AM EST LAB[facility]ORY [facility] Base Excess, Venous 2.9(H) -2.0 - 2.0 mmol/L 06/24/2024 10:18 AM EST LAB[facility]ORY [facility] HGB 16.6 14.0 - 16.8 g/dL 06/24/2024 10:18 AM EST LAB[facility]ORY [facility] Oxyhemoglobin, Venous 40.8 40.0 - 85.0 % total Hgb 06/24/2024 10:18 AM EST LAB[facility]ATORY [facility] Carboxyhemoglobi n, Whole Blood 1.1 <=1.5 % total Hgb 06/24/2024 10:18 AM EST LAB[facility]ATORY [facility] Comment:Smokers: 0-9.0 % Methemoglobin, Whole Blood 1.3 <=1.5 % total Hgb 06/24/2024 10:18 AM EST LAB[facility] Reduced Hemoglobin, Venous 56.8 % total Hgb 06/24/2024 10:18 AM EST LAB[facility] O2 Content, Venous 9.5 7.0 - 18.0 %vol 06/24/2024 10:18 AM EST LAB[facility] Bicarbonate, Whole Blood 29.6 23.0 - 31.0 mmol/L 06/24/2024 10:18 AM EST LAB[facility]ORY [facility] Blood Venous blood specimen / Unknown Venipuncture / Unknown 06/24/2024 10:06 AM EST 06/24/2024 10:13 AM EST us Nikiangela Nation DO LAB BLOOD ORDERABLES Final Res ult Performing Organization Address City/[facility]/ZIP Co de Phone Number LABORATORY [facility] [address] [place] [address] * PROCALCITONIN (06/24/2024 10:06 AM EST) Procalcitonin 0.08 <0.10 ng/mL 06/24/2024 11:03 AM EST LAB[facility]ORY [facility] Blood Venous blood specimen / Unknown Venipuncture / Unknown 06/24/2024 10:06 AM EST 06/24/2024 10:16 AM EST Narrative LABORATORY C - 06/24/2024 11:03 AM EST Less than 0.5 ng/mL: Low risk for progression to sepsis. Review patients condition for localized infections. 0.5 to 2.0 ng/mL: Intermediate risk for progresion to sepsis. Review underlying conditions. Recommend repeat PCT after 6 hours has elapsed. Greater than 2.0 ng/mL: high risk for progression to sepsis unless other causes are known. us Niki Nation DO LAB BLOOD ORDERABLES Final Res ult Performing Organization Address [facility] Co de Phone Number LABORATORY [facility] [address] [place] [address] * TROPONIN T, HIGH SENSITIVITY (06/24/2024 10:06 AM EST) Troponin T, High Sensitivity 16 <=22 ng/L 06/24/2024 11:03 AM EST LAB[facility]ATORY [facility] Blood Venous blood specimen / Unknown Venipuncture / Unknown 06/24/2024 10:06 AM EST 06/24/2024 10:16 AM EST us Niki Nation DO LAB BLOOD ORDERABLES Final Res ult LABORATORY [facility] [address] [place] [address] * (ABNORMAL) HEPATIC FUNCTION PANEL (06/24/2024 10:06 AM EST) Albumin 4.2 3.8 - 5.0 g/dL 06/24/2024 11:03 AM EST LAB[facility]ATORY [facility] AST 34 10 - 50 U/L 06/24/2024 11:03 AM EST LAB[facility]ORY [facility] Alkaline Phosphatase 33(L) 35 - 130 U/L 06/24/2024 11:03 AM EST LAB[facility] ALT 32 10 - 50 U/L 06/24/2024 11:03 AM EST LAB[facility] Bilirubin, Total 0.9 <=1.2 mg/dL 06/24/2024 11:03 AM EST LAB[facility] Bilirubin, Direct 0.3 0.0 - 0.3 mg/dL 06/24/2024 11:03 AM EST LAB[facility] Protein 6.9 6.0 - 8.3 g/dL 06/24/2024 11:03 AM EST LAB[facility]ORY [facility] Blood Venous blood specimen / Unknown Venipuncture / Unknown 06/24/2024 10:06 AM EST 06/24/2024 10:16 AM EST us Niki Nation DO LAB BLOOD ORDERABLES Final Res ult LABORATORY [facility] [address] [place] [address] * CALCIUM, IONIZED, WHOLE BLOOD (06/24/2024 10:06 AM EST) Calcium, Ionized 1.22 1.13 - 1.32 mmol/L 06/24/2024 10:18 AM EST LAB[facility]ATORY [facility] Blood Venous blood specimen / Unknown Venipuncture / Unknown 06/24/2024 10:06 AM EST 06/24/2024 10:13 AM EST us Niki Nation DO LAB BLOOD ORDERABLES Final Res ult LABORATORY [facility] [address] [place] [address] * (ABNORMAL) PHOSPHORUS (06/24/2024 10:06 AM EST) Phosphorus 2.3(L) 2.5 - 4.8 mg/dL 06/24/2024 11:03 AM EST LAB[facility]ATORY [facility] Blood Venous blood specimen / Unknown Venipuncture / Unknown 06/24/2024 10:06 AM EST 06/24/2024 10:16 AM EST Nikiangela Nation LAB BLOOD ORDERABLES Final Res ult LABORATORY [facility] [address] [place] [address] * MAGNESIUM (06/24/2024 10:06 AM EST) Pathologist [facility] Magnesium 2.4 1.5 - 2.6 mg/dL 06/24/2024 11:03 AM EST LAB[facility]ATORY [facility] [place] Venous blood specimen / Unknown Venipuncture / Unknown 06/24/2024 10:06 AM EST 06/24/2024 10:16 AM EST Niki Nation DO LAB BLOOD ORDERABLES Final Res ult LABORATORY [facility] [address] [place] [address] * (ABNORMAL) BASIC METABOLIC PANEL (06/24/2024 10:06 AM EST) Pathologist [facility] BUN 13 6 - 20 mg/dL 06/24/2024 11:03 AM EST LABORATORY [facility] CREATININE 1.0 0.6 - 1.2 mg/dL 06/24/2024 11:03 AM EST LABORATORY [facility] EGFR 76 >=60 mL/min 06/24/2024 11:03 AM EST LABORATORY [facility] Comment:eGFR is calculated b ased on the CKD-EPI 2020 equation. SODIUM 144 135 - 146 mmol/L 06/24/2024 11:03 AM EST LABORATORY [facility] POTASSIUM 3.9 3.5 - 5.1 mmol/L 06/24/2024 11:03 AM EST LABORATORY [facility] CHLORIDE 108(H) 98 - 107 mmol/L 06/24/2024 11:03 AM EST LABORATORY [facility] CO2 27 22 - 32 mmol/L 06/24/2024 11:03 AM EST LABORATORY [facility] ANION GAP 9 7 - 15 mmol/L 06/24/2024 11:03 AM EST LABORATORY [facility] GLUCOSE 82 70 - 120 mg/dL 06/24/2024 11:03 AM EST LABORATORY [facility] CALCIUM 8.8 8.4 - 10.2 mg/dL 06/24/2024 11:03 AM EST LABORATORY [facility] Blood Venous blood specimen / Unknown Venipuncture / Unknown 06/24/2024 10:06 AM EST 06/24/2024 10:16 AM EST us Niki Nation DO LAB BLOOD ORDERABLES Final Res ult LABORATORY [facility] [address] [place] [address] * (ABNORMAL) CBC (06/24/2024 10:06 AM EST) WBC 9.95 4.00 - 10.80 K/uL 06/24/2024 11:24 AM EST LAB[facility]ATORY [facility] RBC 5.05 4.50 - 5.25 M/uL 06/24/2024 11:24 AM EST LAB[facility]ATORY [facility] HGB 15.7 14.0 - 16.8 g/dL 06/24/2024 11:24 AM EST LAB[facility]ATORY [facility] HCT 48.5(H) 40.0 - 48.4 % 06/24/2024 11:24 AM EST LAB[facility]AT[facility] MCV 96.0 82.0 - 99.5 fL 06/24/2024 11:24 AM EST LAB[facility]ATORY [facility] MCH 31.1 27.0 - 34.0 pg 06/24/2024 11:24 AM EST LAB[facility]ATORY [facility] MCHC 32.4 32.0 - 36.0 g/dL 06/24/2024 11:24 AM EST LAB[facility] RDW 13.2 11.5 - 15.5 % 06/24/2024 11:24 AM EST LAB[facility] PLT 280 140 - 400 K/uL 06/24/2024 11:24 AM EST LAB[facility] MPV 10.3 6.6 - 11.1 fL 06/24/2024 11:24 AM EST LAB[facility]AT[facility] nRBCs 0 <=0 /100 WBCs 06/24/2024 11:24 AM EST [facility] [place] Venous blood specimen / Unknown Venipuncture / Unknown 06/24/2024 10:06 AM EST 06/24/2024 10:16 AM EST Niki Nation LAB BLOOD ORDERABLES Final Res ult LAB[facility]AT[facility] [address] [place] [address] * LACTATE (06/24/2024 10:06 AM EST) Lactate 1.1 0.4 - 2.0 mmol/L 06/24/2024 10:49 AM EST LAB[facility]AT[facility] [place] Venous blood specimen / Unknown Venipuncture / Unknown 06/24/2024 10:06 AM EST 06/24/2024 10:16 AM EST Niki Ayerspercy LAB BLOOD ORDERABLES Final Res ult Performing Organization Address [facility] de Phone Number LABORATORY [facility] [address] [place] [address] documented in this encounter Visit Diagnoses Diagnosis Myasthenia gravis with exacerbation, adult form (HCC)- Primary Myasthenia gravis with exacerbation Myasthenia gravis in crisis (HCC) Myasthenia gravis with exacerbation Chest pain Chest pain, unspecified Diplopia Facial weakness Double vision Diplopia Ptosis of right eyelid Unspecified ptosis of eyelid Headache Prediabetes Other abnormal glucose documented in this encounter Administered Medications Inactive Administered Medications - up to 3 most recent administrations Medication Order MAR Action Action Date Dose Rate Site Acetaminophen (Tylenol) tab 650 mg 650 mg, Oral, Q4H PRN Headache, Starting on 06/24/24 at 1345, Until 06/24/24 at 1652, Maximum of 4 grams (4000 mg) per day. Given 06/24/2024 2:26 PM EST 650 mg Acetaminophen (Tylenol) tab 650 mg 650 mg, Oral, Q4H PRN Headache, Starting on Tue06/26/24 at 1426, Until Tue06/27/24 at 1940, Maximum of 4 grams (4000 mg) per day. albumin (human) (Plasbumin-5) 5 % infusion Extracorporeal, ONCE, 1 dose, On Tue06/27/24 at 0945, For Apheresis ONLY At end of infusion document total amount infused. Please scan hourly sign language interpreter "square" 2D barcode to record Lot/ Expiration, RoutineIndications:Myasthenia gravis with exacerbation, adult form (HCC) New Bag 06/27/2024 9:07 AM EST 2,485 mL albumin (human) (Plasbumin-5) 5 % infusion Extracorporeal, ONCE, 1 dose, On Tue06/25/24 at 1600, For Apheresis ONLY At end of infusion document total amount infused. Please scan hourly sign language interpreter "square" 2D barcode to record Lot/ Expiration, RoutineIndications:Myasthenia gravis with exacerbation, adult form ([facility]) New Bag 06/25/2024 3:35 PM EST 2,392 mL anticoagulant acid citrate dextrose (Acd-A) apheresis solution Extracorporeal, CONTINUOUS, Starting on Tue06/27/24 at 0945, Until Tue06/27/24 at 1940, For Apheresis ONLY For anticoagulation of extracorporeal circuit per protocol. At end of infusion document total amount infused.Indications:Myasthenia gravis with exacerbation, adult form (HCC) New Bag 06/27/2024 9:07 AM EST 123 mL anticoagulant acid citrate dextrose (Acd-A) apheresis solution Extracorporeal, CONTINUOUS, Starting on Tue06/25/24 at 1600, Until Tue06/27/24 at 1940, For Apheresis ONLY For anticoagulation of extracorporeal circuit per protocol. At end of infusion document total amount infused.Indications:Myasthenia gravis with exacerbation, adult form (HCC) New Bag 06/25/2024 3:35 PM EST 142 mL buffered lidocaine 1 % inj Intradermal, ONCE PRN INTRA PROCEDURE, Starting on Tue06/25/24 at 1441, Until Tue06/25/24 at 1441, Intra-Op Given 06/25/2024 2:41 PM EST 10 mL check patch placement order Q8H, First dose on Tue06/25/24 at 2200, Until Discontinued, Routine, Scopolamine (TRANSDERM SCOP) patch placement check chlorHEXIDINE (Periogard) 0.12 % oral rinse 15 mL 15 mL, Oral mucosal membrane, BID (0800,2000), First dose on Tue06/24/24 at 1015, Until Discontinued, Include oral/gum/tooth brushing with medication. Use prepackaged oral kit suction tooth brush if available. Given 06/27/2024 7:52 AM EST 15 mL Given 06/26/2024 8:44 PM EST 15 mL Given 06/26/2024 8:13 AM EST 15 mL chlorhexidine gluconate cloth 2 % pad External, [id number], First dose on Tue06/26/24 at 1000, Until Discontinued, Applied to appropriate patients per hourly sign language interpreter's recommendations FOLLOWING daily care. Given 06/27/2024 7:52 AM EST 1 Pad Given 06/26/2024 8:13 AM EST 1 Pad Enoxaparin (Lovenox) inj 40 mg 40 mg, Subcutaneous, Daily(AM), First dose on Tue06/27/24 at 0900, Until Discontinued, If patient is on warfarin, inform provider if daily INR value is 2 or greater! Given 06/27/2024 7:54 AM EST 40 mg Abdomen Right Lower hEParin inj 5,000 Units 5,000 Units, Subcutaneous, Q8H, First dose on Tue06/24/24 at 1400, Until Discontinued Given 06/26/2024 6:19 AM EST 5,000 Units Abdomen Left Lower Given 06/25/2024 11:00 PM EST 5,000 Units Abdomen Right Lower Given 06/25/2024 5:55 AM EST 5,000 Units A bdomen Left Lower lidocaine-epinephrine 2 %-1:[id number] inj Subcutaneous, ONCE PRN INTRA PROCEDURE, Starting on Tue06/25/24 at 1445, Until Tue06/25/24 at 1445, Intra-Op Given 06/25/2024 2:45 PM EST 10 mL Chest Right midazolam (Versed) 2 MG/2ML inj ONCE PRN INTRA PROCEDURE, Starting on Tue06/25/24 at 1421, Until Tue06/25/24 at 1443, Intra-Op Given 06/25/2024 2:43 PM EST 1 mg Given 06/25/2024 2:36 PM EST 2 mg Given 06/25/2024 2:21 PM EST 1 mg Mirtazapine (Remeron) tab 15 mg 15 mg, NG Tube, HS, First dose on Tue06/24/24 at 2200, Until Discontinued Given 06/24/2024 9:16 PM EST 15 mg Mirtazapine (Remeron) tab 15 mg 15 mg, Oral, HS, First dose (after last modification) on Tue06/26/24 at 2200, Until Discontinued Given 06/26/2024 11:01 PM EST 15 mg NSS NG or OSTOMY REPLACEMENT Intravenous, For Apheresis ONLY use volume needed for pre and post flush and priming, CONTINUOUS, Starting on Tue06/27/24 at 0945, Until Tue06/27/24 at 1940Indications:Myasthenia gravis with exacerbation, adult form (HCC) New Bag 06/27/2024 9:07 AM EST NSS NG or OSTOMY REPLACEMENT Intravenous, For Apheresis ONLY use volume needed for pre and post flush and priming, CONTINUOUS, Starting on Tue06/25/24 at 1600, Until Tue06/26/24 at 1425Indications:Myasthenia gravis with exacerbation, adult form (HCC) New Bag 06/25/2024 3:34 PM EST Nutren 1.5 liquid 20 mL/hr, Tube feed, CONTINUOUS, Starting on Tue06/24/24 at 1245, Until Tue06/26/24 at 1425 New Bag 06/26/2024 6:18 AM EST 20 mL/hr 20 mL/ hr Restarted 06/25/2024 7:05 PM EST 20 mL/hr 20 mL/hr New Bag 06/24/2024 3:24 PM EST 20 mL/hr 20 mL/hr Nutrisource (soluble fiber packet) 1 Packet, Oral, Daily(AM), First dose on Tue06/27/24 at 0900, Until Discontinued, Stir one packet into at least 4 oz of any hot or cold beverage or prepared soft food, including purees. Stir until dissolved. Tube Feedin. Flush feeding tube with 30 mL water. 2. Pour packet into a 4-6 fl oz container. 3. Add 120 mL water and mix well with a disposable spoon or tongue blade. 4. Administer Nutrisource via syringe. 5. Flush with 30 mL of water. Given 06/27/2024 7:52 AM EST 1 Packet Oral Hygiene: Mouth Swab with dentifrice Oral, Q4H LIMITED (00;04;12;16), First dose on Tue06/24/24 at 1200, Until Discontinued, To be used with 1.5% hydrogen peroxide solution or 0.05% cetylpyridium chloride oral rinse Given 06/25/2024 4:00 PM EST Given 06/25/2024 12:00 PM EST Given 06/25/2024 4:00 AM EST oxygen GAS Inhalation, OXYGEN, First dose on Tue06/24/24 at 1045, Until Discontinued, Device/Managed by: Low Flow Device, Goal SPO2 (%): 91-95, Starting Device: Nasal Cannula, Initial Flow Rate (LPM): 2, Lowest Support: Nasal Cannula: Flow 0-6 LPM. Titrate up/down by 1 LPM., Titration Interval: Q2 minutes and as needed., Notify Provider: For sudden DECREASE in resting SPO2 to less than 85% and when escalating delivery device., Wean patient off Oxygen when the oxygen saturation is greater than or equal to 93% Oxygen On 06/25/2024 4:00 PM EST Oxygen On 06/25/2024 12:00 AM EST Oxygen On 06/24/2024 4:00 PM EST Polyethylene Glycol 3350 (Miralax) oral powder 17 g 17 g (1 Packet), Oral, Daily(AM), First dose (after last modification) on Tue06/27/24 at 0900, Until Discontinued, Mix in 8 oz of water, juice, soda, coffee, or tea. predniSONE (Deltasone) tab 30 mg 30 mg, NG Tube, Daily(AM), First dose on Tue06/24/24 at 1215, Until Discontinued Given 06/26/2024 8:13 AM EST 30 mg Given 06/25/2024 8:14 AM EST 30 mg Given 06/24/2024 12:50 PM EST 30 mg predniSONE (Deltasone) tab 30 mg 30 mg, Oral, Daily(AM), First dose (after last modification) on Tue06/27/24 at 0900, Until Discontinued Given 06/27/2024 7:54 AM EST 30 mg pyRIDostigmine (Mestinon) tab 60 mg 60 mg, Oral, Q6H, First dose on Tue06/24/24 at 1215, Until Discontinued Given 06/24/2024 12:50 PM EST 60 mg pyRIDostigmine (Mestinon) tab 60 mg 60 mg, NG Tube, Q6H, First dose (after last modification) on Tue06/24/24 at 1800, Until Discontinued Given 06/26/2024 11:00 AM EST 60 mg Given 06/26/2024 6:19 AM EST 60 mg Given 06/25/2024 11:00 PM EST 60 mg pyRIDostigmine (Mestinon) tab 60 mg 60 mg, Oral, Q6H, First dose (after last modification) on Tue06/26/24 at 1800, Until Discontinued Given 06/27/2024 11:25 AM EST 60 mg Given 06/27/2024 5:31 AM EST 60 mg Given 06/26/2024 11:01 PM EST 60 mg Scopolamine (Transderm Scop) patch 1 mg 1 mg (1 Patch), Transdermal, Q3DAYS, First dose on Tue06/25/24 at 1815, Last dose on Tue06/25/24 at 1815, For 1 dose, Do NOT cut the patch. All Scopolamine patches deliver 1 mg over 72 hours. Remove any Scopolamine patches the patient may currently be wearing prior to applying the new patch. Patch Applied 06/25/2024 6:59 PM EST 1 mg Other-Specify senna (Senokot) 1 Tablet 1 Tablet, Oral, BID PRN Constipation, Other, if no BM >48 hours OR patient request, Starting on Tue06/26/24 at 0718, Until Tue06/27/24 at 1940 sodium chloride 0.9 % flush central line 10 mL 10 mL, IV Push, Q8H, First dose on Tue06/25/24 at 2200, Until Discontinued, TO UNUSED PORTS Do not flush if lock, PICC, or central line not in place; IV infusing or unable to flush. sodium chloride 0.9 % flush peripheral luisana 3 mL 3 mL, IV Push, Q8H, First dose on Tue06/24/24 at 1400, Until Discontinued, Do not flush if lock, PICC, or central line not in place; IV infusing or unable to flush. Given 06/27/2024 6:00 AM EST 3 mL Given 06/26/2024 11:01 PM EST 3 mL Given 06/26/2024 2:00 PM EST 3 mL sodium citrate 4% (Anticoagulant Sodium Citrate) inj 6 mL 6 mL, IV Lock, ONCE, On Tue06/27/24 at 0945, For 1 dose, For Apheresis ONLY [facility] ONLY - TUBE TO 401 3 mL each port. For locking catheterIndications:Myasthenia gravis with exacerbation, adult form (HCC) Given 06/27/2024 10:38 AM EST 6 mL sodium citrate 4% (Anticoagulant Sodium Citrate) inj 6 mL 6 mL, IV Lock, ONCE, On Tue06/25/24 at 1600, For 1 dose, For Apheresis ONLY [facility] ONLY - TUBE TO 401 3 mL each port. For locking catheterIndications:Myasthenia gravis with exacerbation, adult form (HCC) Given 06/25/2024 5:25 PM EST 6 mL sodium citrate 4% (Anticoagulant Sodium Citrate) inj IV Lock, ONCE PRN INTRA PROCEDURE, Starting on Tue06/25/24 at 1455, Until Tue06/25/24 at 1455, Intra-Op Given 06/25/2024 2:55 PM EST 3.6 mL documented in this encounter Active and Recently Administered Medications Times are shown in EST. Scheduled Medication Order 06/25/2024 06/26/2024 06/27/2024 albumin (human) (Plasbumin-5) 5 % infusion (COMPLETED) Extracorporeal, ONCE, 1 dose, On Tue06/27/24 at 0945, For Apheresis ONLY At end of infusion document total amount infused. Please scan hourly sign language interpreter "square" 2D barcode to record Lot/ Expiration, Routine 0907 (New Bag - Provider: Jessi Cheng RN)1040 (Finish Infusion - Provider: Jessi Cheng RN) albumin (human) (Plasbumin-5) 5 % infusion (COMPLETED) Extracorporeal, ONCE, 1 dose, On Tue06/25/24 at 1600, For Apheresis ONLY At end of infusion document total amount infused. Please scan hourly sign language interpreter "square" 2D barcode to record Lot/ Expiration, Routine 1535 (New Bag - Provider: Luzma Boyd, RENÉ)1730 (Finish Infusion - Provider: Luzma Boyd, RENÉ) check patch placement order Q8H, First dose on Tue06/25/24 at 2200, Until Discontinued, Routine, Scopolamine (TRANSDERM SCOP) patch placement check 2200 (Patch Placement Verified - Provider: Chelle Hall RN) 0600 (Patch Placement Verified - Provider: Sesar Anderson RN - Comment: Right ear)1400 (Patch Placement Verified - Provider: Jody Davidson RN)2200 (Patch Placement Verified - Provider: Sesar Anderson RN - Comment: Right ear) 0600 (Patch Placement Verified - Provider: Sesar Anderson RN - Comment: Right ear)1400 (Patch Placement Verified - Provider: Andrez Her RN) chlorHEXIDINE (Periogard) 0.12 % oral rinse 15 mL 15 mL, Oral mucosal membrane, BID (799,1999), First dose on Tue06/24/24 at 1015, Until Discontinued, Include oral/gum/tooth brushing with medication. Use prepackaged oral kit suction tooth brush if available. 08 (Not Given - Provider: Bonnie Toledo RN - Reason: Refused-Notify Provider - Comment: states did earlier)2017 (Given - Provider: Chelle Hall RN) 08 (Given - Provider: Jody Davidson RN)2043 (Given - Provider: Sesar Anderson RN) 0752 (Given - Provider: Andrez Her RN) chlorhexidine gluconate cloth 2 % pad External, [id number], First dose on Tue06/26/24 at 1000, Until Discontinued, Applied to appropriate patients per hourly sign language interpreter's recommendations FOLLOWING daily care. 08 (Given - Provider: Jody Davidson RN) 075 (Given - Provider: Andrez Her, RENÉ) Enoxaparin (Lovenox) inj 40 mg 40 mg, Subcutaneous, Daily(AM), First dose on Tue06/27/24 at 0900, Until Discontinued, If patient is on warfarin, inform provider if daily INR value is 2 or greater! 0754 (Given - Provider: Andrez Her RN) hEParin inj 5,000 Units (CANCELED) 5,000 Units, Subcutaneous, Q8H, First dose on Tue06/24/24 at 1400, Until Discontinued 0555 (Given - Provider: Marcial Alvarado RN)1400 (OR/Procedure - Provider: Bonnie Toledo RN)2300 (Given - Provider: Chelle Hall RN) 0619 (Given - Provider: Sesar Anderson RENÉ) Mirtazapine (Remeron) tab 15 mg 15 mg, Oral, HS, First dose (after last modification) on Tue06/26/24 at 2200, Until Discontinued 2301 (Given - Provider: Sesar Anderson RN) Nutrisource (soluble fiber packet) 1 Packet, Oral, Daily(AM), First dose on Tue06/27/24 at 0900, Until Discontinued, Stir one packet into at least 4 oz of any hot or cold beverage or prepared soft food, including purees. Stir until dissolved. Tube Feedin. Flush feeding tube with 30 mL water. 2. Pour packet into a 4-6 fl oz container. 3. Add 120 mL water and mix well with a disposable spoon or tongue blade. 4. Administer Nutrisource via syringe. 5. Flush with 30 mL of water. 0752 (Given - Provider: Andrez Her RN) Oral Hygiene: Mouth Swab with dentifrice (CANCELED) Oral, Q4H LIMITED (00;04;12;16), First dose on Tue06/24/24 at 1200, Until Discontinued, To be used with 1.5% hydrogen peroxide solution or 0.05% cetylpyridium chloride oral rinse 0000 (Given - Provider: Marcial Alvarado RN)0400 (Given - Provider: Marcial Alvarado RN)1200 (Given - Provider: Bonnie Toledo, RN)1600 (Given - Provider: Bonnie Toledo RN) 0000 (Not Given - Provider: Sesar Anderson RN - Reason: Refused-Notify Provider - Comment: Patient does not want midnight or 0400 dose. Sesar Wolf notified)0400 (Not Given - Provider: Sesar Anderson RN - Reason: Refused-Notify Provider - Comment: Patient does not want midnight or 0400 dose. Sesar Wolf notified) oxygen GAS (CANCELED) Inhalation, OXYGEN, First dose on Tue06/24/24 at 1045, Until Discontinued, Device/Managed by: Low Flow Device, Goal SPO2 (%): 91-95, Starting Device: Nasal Cannula, Initial Flow Rate (LPM): 2, Lowest Support: Nasal Cannula: Flow 0-6 LPM. Titrate up/down by 1 LPM., Titration Interval: Q2 minutes and as needed., Notify Provider: For sudden DECREASE in resting SPO2 to less than 85% and when escalating delivery device., Wean patient off Oxygen when the oxygen saturation is greater than or equal to 93% 0000 (Oxygen On - Provider: Marcial Alvarado, RN)0800 (Oxygen Off - Provider: Bonnie Toledo RN)1600 (Oxygen On - Provider: Bonnie Toledo RN) 0016 (Oxygen Off - Provider: Sesar Anderson, RN)0800 (Oxygen Off - Provider: Jody Davidson, RN) Polyethylene Glycol 3350 (Miralax) oral powder 17 g 17 g (1 Packet), Oral, Daily(AM), First dose (after last modification) on Tue06/27/24 at 0900, Until Discontinued, Mix in 8 oz of water, juice, soda, coffee, or tea. 0900 (Not Given - Provider: Andrez Her RN - Reason: Refused-Notify Provider - Comment: Rich Berger notified) predniSONE (Deltasone) tab 30 mg (CANCELED) 30 mg, NG Tube, Daily(AM), First dose on Tue06/24/24 at 1215, Until Discontinued 0814 (Given - Provider: Bonnie Toledo RN) 0813 (Given - Provider: Jody Davidson, RN) predniSONE (Deltasone) tab 30 mg 30 mg, Oral, Daily(AM), First dose (after last modification) on Tue06/27/24 at 0900, Until Discontinued 0754 (Given - Provider: Andrez Her RN) pyRIDostigmine (Mestinon) tab 60 mg (CANCELED) 60 mg, NG Tube, Q6H, First dose (after last modification) on Tue06/24/24 at 1800, Until Discontinued 0002 (Given - Provider: Marcial Alvarado, RN)0556 (Given - Provider: Marcial Alvarado, RN)1238 (Given - Provider: Bonnie Toledo RN)1900 (Given - Provider: Celestina Kemp RN)2300 (Given - Provider: Chelle Hall, RENÉ) 0619 (Given - Provider: Sesar Anderson, RN)1100 (Given - Provider: Jody Davidson, RN) pyRIDostigmine (Mestinon) tab 60 mg 60 mg, Oral, Q6H, First dose (after last modification) on Tue06/26/24 at 1800, Until Discontinued 1718 (Given - Provider: Jody Davidson RN)2301 (Given - Provider: Sesar Anderson RN) 0531 (Given - Provider: Sesar Anderson RN)1125 (Given - Provider: Andrez Her RN) Scopolamine (Transderm Scop) patch 1 mg 1 mg (1 Patch), Transdermal, Q3DAYS, First dose on Tue06/25/24 at 1815, Last dose on Tue06/25/24 at 1815, For 1 dose, Do NOT cut the patch. All Scopolamine patches deliver 1 mg over 72 hours. Remove any Scopolamine patches the patient may currently be wearing prior to applying the new patch. 185 (Patch Applied - Provider: Celestina Kemp RN - Comment: behind R ear) 1540 (Due: Patch Removed - Provider: Discharge, Physician - Comment: Time automatically adjusted from order being discontinued) sodium chloride 0.9 % flush central line 10 mL 10 mL, IV Push, Q8H, First dose on Tue06/25/24 at 2200, Until Discontinued, TO UNUSED PORTS Do not flush if lock, PICC, or central line not in place; IV infusing or unable to flush. 2200 (Not Given - Provider: Chelle Hall RN - Reason: Parameter(s) Not Met - Comment: locked with anti-coag and wrapped) 0600 (Not Given - Provider: Sesar Anderson RN - Reason: Parameter(s) Not Met - Comment: Heparin locked)1400 (Not Given - Provider: Jody Davidson RN - Reason: Parameter(s) Not Met)2200 (Not Given - Provider: Sesar Anderson RN - Reason: Parameter(s) Not Met - Comment: Heparin locked) 0600 (Not Given - Provider: Sesar Anderson RN - Reason: Parameter(s) Not Met - Comment: Heparin locked)1400 (Not Given - Provider: Andrez Her RN - Reason: Parameter(s) Not Met - Comment: unable to flush due to heparin lock) sodium chloride 0.9 % flush peripheral luisana 3 mL 3 mL, IV Push, Q8H, First dose on Tue06/24/24 at 1400, Until Discontinued, Do not flush if lock, PICC, or central line not in place; IV infusing or unable to flush. 0600 (Given - Provider: Marcial Alvarado, RENÉ)1400 (Given - Provider: Bonnie Toledo RN)2200 (Given - Provider: Chelle Hall, RENÉ) 0600 (Given - Provider: Sesar Anderson, RENÉ)1400 (Given - Provider: Jody Davidson, RN)2301 (Given - Provider: Sesar Anderson RN) 0600 (Given - Provider: Sesar Anderson RN)1400 (Not Given - Provider: Andrez Her RN - Reason: Other- Please add reason in Comments - Comment: pt does not have PIV) sodium citrate 4% (Anticoagulant Sodium Citrate) inj 6 mL (COMPLETED) 6 mL, IV Lock, ONCE, On Tue06/27/24 at 0945, For 1 dose, For Apheresis ONLY [facility] ONLY - TUBE TO 401 3 mL each port. For locking catheter 1038 (Given - Provider: Jessi Cheng RN) sodium citrate 4% (Anticoagulant Sodium Citrate) inj 6 mL (COMPLETED) 6 mL, IV Lock, ONCE, On Tue06/25/24 at 1600, For 1 dose, For Apheresis ONLY [facility] ONLY - TUBE TO 401 3 mL each port. For locking catheter 1725 (Given - Provider: Luzma Boyd RN) Continuous Medication Order 06/25/2024 06/26/2024 06/27/2024 anticoagulant acid citrate dextrose (Acd-A) apheresis solution Extracorporeal, CONTINUOUS, Starting on Tue06/27/24 at 0945, Until Tue06/27/24 at 1940, For Apheresis ONLY For anticoagulation of extracorporeal circuit per protocol. At end of infusion document total amount infused. 0907 (New Bag - Provider: Jessi Cheng RN - Comment: AC to Pt)1040 (Finish Infusion - Provider: Jessi Cheng RN) anticoagulant acid citrate dextrose (Acd-A) apheresis solution Extracorporeal, CONTINUOUS, Starting on 06/25/24 at 1600, Until Tue06/27/24 at 1940, For Apheresis ONLY For anticoagulation of extracorporeal circuit per protocol. At end of infusion document total amount infused. 1535 (New Bag - Provider: Luzma Boyd RN)1730 (Finish Infusion - Provider: Luzma Boyd, RENÉ) NSS NG or OSTOMY REPLACEMENT Intravenous, For Apheresis ONLY use volume needed for pre and post flush and priming, CONTINUOUS, Starting on Tue06/27/24 at 0945, Until Tue06/27/24 at 1940 0907 (New Bag - Provider: Jessi Cheng, RN - Comment: 167 mL)1040 (Finish Infusion - Provider: Jessi Cheng, RN) NSS NG or OSTOMY REPLACEMENT (CANCELED) Intravenous, For Apheresis ONLY use volume needed for pre and post flush and priming, CONTINUOUS, Starting on Tue06/25/24 at 1600, Until Tue06/26/24 at 1425 1534 (New Bag - Provider: Luzma Boyd, RENÉ)1730 (Finish Infusion - Provider: Luzma Boyd RN - Comment: 166 ml) Nutren 1.5 liquid (CANCELED) 20 mL/hr, Tube feed, CONTINUOUS, Starting on Tue06/24/24 at 1245, Until Tue06/26/24 at 1425 0400 (Stopped - Provider: Marcial Alvarado, RN)1905 (Restarted - Provider: Bonnie Toledo, RN) 0618 (New Bag - Provider: Sesar Anderson, RN)1425 (Stopped - Provider: Jody Davidson, RENÉ) PRN Medication Order 06/25/2024 06/26/2024 06/27/2024 Acetaminophen (Tylenol) tab 650 mg 650 mg, Oral, Q4H PRN Headache, Starting on Tue06/26/24 at 1426, Until Tue06/27/24 at 1940, Maximum of 4 grams (4000 mg) per day. buffered lidocaine 1 % inj (COMPLETED) Intradermal, ONCE PRN INTRA PROCEDURE, Starting on Tue06/25/24 at 1441, Until Tue06/25/24 at 1441, Intra-Op 1441 (Given - Provider: Tracee Ospina PA-C) lidocaine-epinephrine 2 %-1:[id number] inj (COMPLETED) Subcutaneous, ONCE PRN INTRA PROCEDURE, Starting on Tue06/25/24 at 1445, Until Tue06/25/24 at 1445, Intra-Op 1445 (Given - Provider: Tracee Ospina PA-C) midazolam (Versed) 2 MG/2ML inj (COMPLETED) ONCE PRN INTRA PROCEDURE, Starting on Tue06/25/24 at 1421, Until Tue06/25/24 at 1443, Intra-Op 1421 (Given - Provider: Ellie Medrano, RENÉ)1436 (Given - Provider: Ellie Medrano RN)1443 (Given - Provider: Ellie Medrano RN) senna (Senokot) 1 Tablet 1 Tablet, Oral, BID PRN Constipation, Other, if no BM >48 hours OR patient request, Starting on Tue06/26/24 at 0718, Until 06/27/24 at 1940 sodium citrate 4% (Anticoagulant Sodium Citrate) inj (COMPLETED) IV Lock, ONCE PRN INTRA PROCEDURE, Starting on Tue06/25/24 at 1455, Until Tue06/25/24 at 1455, Intra-Op 1455 (Given - Provider: David Rowe RT) documented in this encounter Advance Directives Documents on File Type Date Recorded Patient Patents Examiner Expl anation Power of International Accounting Manager 06/20/2018 POWER OF A TTORNEY POA: [...] the patient have Health Care Power of International Accounting Manager? Yes, in chart and reviewed as [...] of Attor ephraim? No Care Teams Family Consumer Science Fcs Teacher Relationship Specialty Start Date End Date Theresa Johnson MD [address] [place] [address] PCP - General Family Medicine 12/19/23 documented as of this encounter
--- OUTSIDE RECORDS SUMMARY | 2024-08-05 04:09 | External Medical Summary | Summary of Care ---
Author Name Unknown Organization [facility] Address [address] [place] [address] Phone [phone] Care Team Providers Care Rum Processing Operator Name Role Phone Theresa Johnson MD Primary Care Provider [phone] Reason for Referral * Precert (Within 10 days (routine)) - Authorized Specialty Diagnoses / Procedures Referred By Contac t Referred To Contact Radiology Diagnoses Myasthenia gravis with exacerbation, adult form (HCC) Procedures IR APHERESIS ACCESS Thee Ferrari MD [address] [place] [address] Phone: tel: fax: Referral ID Status Reason Start Date Expiration Date V isits Requested Visits Authorized [id number] Authorized 07/02/2024 999 999 Reason for Visit * Reason Comments Treatment plasmapheresis Encounter Details Date Type Department Care Team (Late st Contact Info) Description 07/02/2024 9:30 AM EST Office Visit Apheresis Clinic, [place] [address] [place] [address] Provider, Apheresis [facility] [address] [place], [place] [id number] Myasthenia gravis with exacerbation, adult form (HCC)* [...] Propionate 50 MCG/ACT Nasal Suspension Administer 1 [place] into nostril in the morning. Active FIBER [...] morning. 60 Tablet 4 5 Active pyRIDostigmine [place] 60 MG Oral Tablet (Mestinon) Take 1 Tablet by mouth in the morning and 1 Tablet at noon and 1 Tablet before bedtime. 90 Tablet 4 5 Active pyRIDostigmine [place] 60 MG Oral Tablet (Mestinon) Take 1 [...] No 06/29/2024 Does the household have a [facility] source of income? 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 on file Not on file [...] Nursing Notes * Jessi Cheng RN - 07/02/2024 9:30 AM EST [facility] Nursing Care Plan ID is not [...] 7:15 AM EST Pharmacy Neurology Renny John, [place] [address] [place] [phone] [place], Pharmacist Neurology [address] [place] [address] [phone] 07/04/2024 8:30 AM EST Office Visit Apheresis Clinic, [place] [facility] [place] [address] Provider, Apheresis [address] [place] [address] 07/04/2024 2:00 PM EST Scheduled Telephone Neurology [address] [place] [phone] Neuromuscular, Phone Nurse Neuro [address] [place] [address] 07/06/2024 9:30 AM EST Hem/Onc Treatment Hematology/Oncology Treatment, [place] [address] [place] [phone] Park, Chair 10 Hem Onc [address] [place] [address] 07/10/2024 10:00 AM EST Office Visit [facility] 200 [facility] [place] [address] Theresa Johnson MD [address] [place] [place] [address] 07/13/2024 9:30 AM EST Hem/Onc Treatment Hematology/Oncology Treatment, [place] 200 [place] [address] Park, Chair 5 Hem Onc [facility] [address] [facility] [place] [address] 07/20/2024 9:00 AM EST Telemedicine Neurology [address] [place] [phone] [place], Pharmacist Neurology [address] [place] [address] 07/25/2024 11:00 AM EST Office Visit Neurology [address] [place] [phone] Maksim Wright MD [address] [place] [address] 09/13/2024 11:20 AM EDT Office Visit [facility] [address] [place] [address] Theresa Johnson MD [address] [facility] [place] [address] 12/11/2024 11:15 AM EDT Office Visit Urology, [facility] [address] [place] [address] Ramesh Phan MD [address] [address] [address] 05/30/2025 11:15 AM EST Office Visit Dermatology [facility] [address] [place] [address] Marshall Henson MD [address] [facility] [place] [address] Scheduled Orders Name Type Priority Associated Diagnoses Orde r Schedule IR APHERESIS ACCESS Medical Imaging Routine Myasthenia gravis with exacerbation, adult form (HCC) Ordered: 07/02/2024 Scheduled Procedures Name Priority Associated Diagnoses Date/Ti [...] this encounter Medical Devices Implanted Type Area Flexible Shaft Winder Device Identifier Shelf Expiration Date Model / Serial / Lot Port Powerflow 9.6fr - [id number] Implanted:Qty : 1 on 03/15/2023 at [facility] CR BARD : PERIPHERAL VASCULAR [id number] 10/21/2023 [id number] / / [id number] Power Port 8fr Sngl Lumen Plas - [id number] Implanted:Qty : 1 on 03/15/2023 at [facility] CR BARD : PERIPHERAL VASCULAR [id number] 03/22/2024 [id number] / / [id number] Lens Li61ao 13.00mm 18.00 - [id number] - [id number] Implanted:Qty : 1 on 02/02/2024 by Andre Swartz MD at [facility] Right: Eye BAUSCH & LOMB 08/20/2028 [id number] / [id number] / [id number] Lens Li61ao 13.00mm 17.50 - [id number] - [id number] Implanted:Qty : 1 on 02/16/2024 by Andre Swartz MD at [facility] Left: Eye BAUSCH & LOMB 07/20/2028 [id number] / [id number] / [id number] documented as of this encounter Visit Diagnoses [...] infusion document total amount infused. Please scan warehouse shipping supervisor "square" 2D barcode to record Lot/ Expiration, [...] Documents on File Type Date Recorded Patient On Air Personality Expl anation Power of Saw Sharpener 06/20/2018 POWER OF A TTORNEY POA: EDEL- [...] the patient have Health Care Power of Saw Sharpener? Yes, in chart and reviewed as current [...] Power of Attor ephraim? No Care Teams Rum Processing Operator Relationship Specialty Start Date End Date Theresa Johnson MD [address] [place] [address] PCP - General Family Medicine 12/19/23 documented as of this encounter
--- OUTSIDE RECORDS SUMMARY | 2024-08-05 04:10 | External Medical Summary | Summary of Care ---
Author Name Unknown Organization [facility] Address [address] [place] [address] Phone [phone] Care Team Providers Care Assistant Maintenance Manager Name Role Phone Theresa Johnson MD Primary Care Provider Reason for Visit * Reason Onset Date Comments Pre Cert/Prior Auth 06/27/2024 Vyvgart Encounter Details Date Type Department Care Team (Late st Contact Info) Description 06/27/2024 Telephone Hematology/Oncology Treatment, [place] [address] [place] [address] Maksim Wright MD [address] [place] [address] Pre Cert/Prior Auth (Vyvgart) Allergies Active Allergy Reactions Criticality Noted Date Comments Lactose Diarrhea 06/25/2024 Only milk bothers patient. He eats ice cream, yogurt and cheese. Benzalkonium Chloride 02/21/2015 Merthiolate "the orange kind" Caused a rash documented as of this encounter (statuses as of 06/27/2024) Medications ALEVE 220 MG PO CAPS Take 1 Capsule by mouth daily as needed. Suspended Fluticasone Propionate 50 MCG/ACT Nasal Suspension Administer 1 [place] into nostril in the morning. Suspended FIBER ADULT GUMMIES 2 g CHEW Take 2 Each by mouth daily. Suspended Calcium-Vitamin D-Minerals 600-400 MG-UNIT Oral Tablet ChewableIndicati ons:Myasthenia gravis (HCC) Take 1 tablet in the morning daily 30 Tablet 5 06/08/19 23 Suspended Alendronate Sodium 70 MG Oral Tablet (Fosamax)Indicat ions:High risk for fracture due to osteoporosis by DEXA scan Take 1 Tablet by mouth once a week. with 8 oz. water 30 minutes before first meal of the day. Remain upright for 30 min after taking tablet 12 Tablet 3 03/13/20 24 Suspended Tamsulosin HCl 0.4 MG Oral Capsule (Flomax)Indicati ons:BPH with obstruction/lowe r urinary tract symptoms Take 1 Capsule by mouth in the morning. 90 Capsule 3 03/19/20 24 Suspended Scopolamine 1 MG/3DAYS Transdermal Patch 72 Hour (Transderm-Scop) Place 1 patch topically on the skin for 72 hours maximum. May replace every 3 days. 3 Patch 03/19/20 24 Suspended Amoxicillin-Pot Clavulanate 875-125 MG Oral Tablet (Augmentin)Indic ations:Acute non-recurrent frontal sinusitis Take 1 Tablet by mouth in the morning and 1 Tablet before bedtime. Do all this for 10 days. 20 Tablet 04/09/20 24 025 Discontinued Ketoconazole 2 % External CreamIndications :Seborrheic dermatitis Apply to dry skin on forehead, nose once daily 30 g 4 05/04/20 24 Suspended Mirtazapine 15 MG Oral Tablet (Remeron)Indicat ions:Adjustment insomnia Take 1 Tablet by mouth at bedtime. 90 Tablet 1 05/14/20 24 Suspended Finasteride 5 MG Oral Tablet (Proscar) Take 1 Tablet by mouth in the morning. 90 Tablet 3 06/04/19 25 Suspended predniSONE 10 MG Oral Tablet (Deltasone) Take 2 Tablets by mouth in the morning. 30 Tablet 6 06/11/19 25 025 Discontinued predniSONE 10 MG Oral Tablet (Deltasone) Take 2 Tablets by mouth in the morning. 60 Tablet 4 06/11/19 25 Suspended pyRIDostigmine [place] 60 MG Oral Tablet (Mestinon) Take 1 Tablet by mouth in the morning and 1 Tablet at noon and 1 Tablet before bedtime. 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 (5 years old or older) Answer Entry Date Author No 06/24/2024 9:28 AM EST Marguerite Toledo RN documented in this encounter Miscellaneous Notes * Telephone Encounter - Paige Browning LPN - 06/27/2024 7:09 AM EST Pre-Cert: Patient is scheduled for his Vyvgart infusion on 06/29/2024. Auth is currently pending, under review. Will the authorization be back by Tuesday? documented in this encounter Plan of Treatment Upcoming Encounters Date Type Department Care Team (Late st Contact Info) Description 06/29/2024 9:00 AM EST Office Visit Apheresis Clinic, [address] [address] Provider, Apheresis [address] [place] [address] 07/06/2024 9:30 AM EST Hem/Onc Treatment Hematology/Oncology Treatment, [place] [address] [place] [phone] Krista, Chair 10 Hem Onc [address] [place] [address] 07/13/2024 9:30 AM EST Hem/Onc Treatment Hematology/Oncology Treatment, [place] 200 [facility] [place] [phone] Krista, Chair 5 Hem Onc Scenery 200 [place] [address] 07/20/2024 9:00 AM EST Telemedicine Neurology [address] [place] [phone] [place], Pharmacist Neurology [address] [facility] [place] [address] 07/25/2024 11:00 AM EST Office Visit Neurology [address] [place] [phone] Maksim Wright MD [address] [facility] [place] [address] 09/13/2024 11:20 AM EDT Office Visit Family Practice [facility] [address] [place] [address] Theresa Johnson MD [address] [place] [address] 12/11/2024 11:15 AM EDT Office Visit Urology, [facility] [address] [facility] [place] [address] Ramesh Phan MD [address] [place] [address] 05/30/2025 11:15 AM EST Office Visit Dermatology [facility] [address] [place] [address] Marshall Henson MD [address] [place] [address] Scheduled Procedures Name Priority Associated Diagnoses Date/Ti [...] this encounter Medical Devices Implanted Type Area Heating And Ventilating Drafter Device Identifier Shelf Expiration Date Model / Serial / Lot Port Powerflow 9.6fr - [id number] Implanted:Qty : 1 on 03/15/2023 at [facility] CR BARD : PERIPHERAL VASCULAR [id number] 10/21/2023 [id number] / / [id number] Power Port 8fr Sngl Lumen Plas - [id number] Implanted:Qty : 1 on 03/15/2023 at [facility] CR BARD : PERIPHERAL VASCULAR [id number] 03/22/2024 [id number] / / [id number] Lens Li61ao 13.00mm 18.00 - [id number] - [id number] Implanted:Qty : 1 on 02/02/2024 by Andre Swartz MD at [facility] Right: Eye BAUSCH & LOMB 08/20/2028 [id number] / [id number] / [id number] Lens Li61ao 13.00mm 17.50 - [id number] - [id number] Implanted:Qty : 1 on 02/16/2024 by Andre Swartz MD at OR [facility] Left: Eye BAUSCH & LOMB 07/20/2028 [id number] / [id number] / [id number] documented as of this encounter Advance Directives Documents on File Type Date Recorded Patient Dental Receptionist Expl anation Power of Electronics Engineering Technologist 06/20/2018 POWER OF A TTORNEY POA: EDEL- DAUGHTER, GERALD-SON * Full Code (Latest Code Status on File) Date Activated Date Inactivated Comments 06/24/2024 11:50 AM This order ref lects the patients wishes and were consensually agreed [...] the patient have Health Care Power of Electronics Engineering Technologist? Yes, in chart and reviewed as current [...] of Attor ephraim? No Care Teams Assistant Maintenance Manager Relationship Specialty Start Date End Date Theresa Johnson MD [address] [facility] [address] PCP - General Family Medicine 12/19/23 documented as of this encounter
--- OUTSIDE RECORDS SUMMARY | 2024-08-05 04:10 | External Medical Summary ---
Author Name Unknown Address Unknown Organization K01:[facility] [place] [facility] [address] [facility] [address] [facility] [address] Laboratory Report Ordering Provider Test Date Status STAR SAWYER 06/26/2024 06:42:00 Final Observation Date Value Abnormality Reference (Units ) Status WBC, Total 06/26/2024 06:42:00 12.63 Above high normal 4.00-10.80 (K/uL) Final RBC 06/26/2024 06:42:00 5.24 4.50-5.25 (M/uL) Final Hemoglobin 06/26/2024 06:42:00 16.5 14.0-16.8 (g/dL) Final HCT 06/26/2024 06:42:00 49.2 Above high normal 40.0-48.4 (%) Final MCV 06/26/2024 06:42:00 93.9 82.0-99.5 (fL) Final MCH 06/26/2024 06:42:00 31.5 27.0-34.0 (pg) Final MCHC 06/26/2024 06:42:00 33.5 32.0-36.0 (g/dL) Final RDW 06/26/2024 06:42:00 13.3 11.5-15.5 (%) Final Platelets 06/26/2024 06:42:00 245 140-400 (K/uL) Final MPV 06/26/2024 06:42:00 9.8 6.6-11.1 (fL) Final Nucleated erythrocytes/100 leukocytes [Ratio] in Blood by Automated count 06/26/2024 06:42:00 0 <=0 (/100 WBCs) Final Performing Location [facility] [place] [address] [place] [address]
--- OUTSIDE RECORDS SUMMARY | 2024-08-05 04:10 | External Medical Summary ---
Author Name Unknown Address Unknown Organization K01:[facility] - [address] [place] [address] Laboratory Report Ordering Provider Test Date Status STAR SAWYER 06/26/2024 06:42:00 Final Observation Date Value Abnormality Reference (Units ) Status Magnesium 06/26/2024 06:42:00 2.5 1.5-2.6 (m g/dL) Final Performing Location [facility] - [address] [place] [address]
--- OUTSIDE RECORDS SUMMARY | 2024-08-05 04:10 | External Medical Summary ---
Author Name Unknown Address Unknown Organization K01:[facility] - [address] [facility] [address] [place] [address] Laboratory Report Ordering Provider Test Date Status STAR SAWYER 06/24/2024 10:06:00 Final Observation Date Value Abnormality Reference (Units ) Status Magnesium 06/24/2024 10:06:00 2.4 1.5-2.6 (m g/dL) Final Performing Location [facility] - [address] [place] [address]
--- OUTSIDE RECORDS SUMMARY | 2024-08-05 04:10 | External Medical Summary ---
Author Name Unknown Address Unknown Organization K01:[facility] [place] - [address] [place] [address] Laboratory Report Ordering Provider Test Date Status CHRISTY TRUJILLO 06/24/2024 19:36:00 Final Observation Date Value Abnormality Reference (Units ) Status ABO 06/24/2024 19:36:00 A Final RH 06/24/2024 19:36:00 Positive Final Performing Location [facility] - [address] [place] [address]
--- OUTSIDE RECORDS SUMMARY | 2024-08-05 04:10 | External Medical Summary ---
Author Name Unknown Address Unknown Organization K01:[facility] [place] [address] [facility] [address] [place] [address] Laboratory Report Ordering Provider Test Date Status STAR SAWYER 06/24/2024 10:06:00 Final Observation Date Value Abnormality Reference (Units ) Status Phosphate 06/24/2024 10:06:00 2.3 Below low normal 2.5 -4.8 (mg/dL) Final Performing Location LABORATORY C - [address] [place] [address]
--- OUTSIDE RECORDS SUMMARY | 2024-08-05 04:10 | External Medical Summary | Summary of Care ---
Author Name Unknown Organization [facility] Address [address] [place] [address] Phone [phone] Care Team Providers Care Bleach Liquor Maker Name Role Phone Theresa Johnson MD Primary Care Provider [phone] Encounter Details Date Type Department Care Team (Late st Contact Info) Description 06/25/2024 Orders Only Apheresis Clinic, [place] [address] [place] [address] [facility] Apheresis Nurse, RN [address] [place] [address] Allergies Active Allergy Reactions Criticality Noted Date Comments Benzalkonium Chloride 02/21/2015 Merthiolate "the orange kind" Caused a rash Milk (Cow) Diarrhea 02/05/2015 documented as of this encounter (statuses as of 06/25/2024) Medications ALEVE 220 MG PO CAPS as needed Suspended Fluticasone Propionate 50 MCG/ACT Nasal Suspension Administer 1 [place] into nostril in the morning. Suspended FIBER ADULT GUMMIES 2 g CHEW Take 2 Each by mouth daily. Suspended SUMAtriptan Succinate 100 MG Oral TabletIndication s:Migraine without status migrainosus, not intractable, unspecified migraine type TAKE 1 TABLET AT ONSET OF MIGRAINE. MAY REPEAT IN 2 HOURS BUT NOT MORE. 10 Tab 3 02/06/20 21 Suspended Additional Information Patient not taking.Reported on 04/09/2024 Triamcinolone Acetonide 0.5 % External CreamIndications :Dermatitis APPLY TO AFFECTED AREAS TWICE DAILY. 60 g 1 08/22/19 22 Suspended Additional Information Patient not taking.Reported on 06/24/2024 Calcium-Vitamin D-Minerals 600-400 MG-UNIT Oral Tablet ChewableIndicati [...] 3 days. 3 Patch 03/19/20 24 Suspended Ketoconazole 2 % External CreamIndications :Seborrheic dermatitis [...] the morning. 30 Tablet 6 06/11/19 25 Suspended predniSONE 10 MG Oral Tablet (Deltasone) Take 2 Tablets by mouth in the morning. 60 Tablet 4 06/11/19 25 Suspended pyRIDostigmine [place] 60 MG Oral Tablet (Mestinon) Take 1 Tablet by mouth in the morning and 1 Tablet at noon and 1 Tablet before bedtime. 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 Not on file [...] Assessment Author No 06/24/2024 9:28 AM EST [place], Ka thleen, RN documented as of this encounter Mental [...] Team (Late st Contact Info) Description 06/25/2024 1:00 PM EST Office Visit Apheresis Clinic, [address] [phone] Provider, Apheresis [address] [place] [phone] 06/29/2024 8:45 AM EST Hem/Onc Treatment Hematology/Oncology Treatment, [address] [phone] Park, Chair 2 Hem Onc Scenery 200 [place] [address] 07/06/2024 9:30 AM EST Hem/Onc Treatment Hematology/Oncology Treatment, [address] [place] [address] Park, Chair 10 Hem Onc Scenery 200 [place] [address] 07/13/2024 9:30 AM EST Hem/Onc Treatment Hematology/Oncology Treatment, [address] [place] [address] Krista, Chair 5 Hem Onc Scenery [address] [place], [place] [address] 07/20/2024 9:00 AM EST Telemedicine Neurology [address] [place] [phone] [place], Pharmacist Neurology [address] [place] [address] [place] [address] 07/25/2024 11:00 AM EST Office Visit Neurology [place] [address] [place] [phone] Maksim Wright MD [address] [place] [address] 09/13/2024 11:20 AM EDT Office Visit Family Practice [facility] [address] [place] [address] Theresa Johnson MD [address] [place] [address] 12/11/2024 11:15 AM EDT Office Visit Urology, [facility] [address] [place] [address] Ramesh Phan MD [address] [place] [address] 05/30/2025 11:15 AM EST Office Visit Dermatology [facility] [address] [place] [address] Marshall Henson MD [address] [facility] [place] [address] Scheduled Procedures Name Priority Associated Diagnoses Date/Ti [...] this encounter Medical Devices Implanted Type Area Harness Worker Device Identifier Shelf Expiration Date Model / Serial / Lot Port Powerflow 9.6fr - [id number] Implanted:Qty : 1 on 03/15/2023 at [facility] CR BARD : PERIPHERAL VASCULAR [id number] 10/21/2023 [id number] / / [id number] Power Port 8fr Sngl Lumen Plas - [id number] Implanted:Qty : 1 on 03/15/2023 at [facility] CR BARD : PERIPHERAL VASCULAR [id number] 03/22/2024 [id number] / / [id number] Lens Li61ao 13.00mm 18.00 - [id number] - [id number] Implanted:Qty : 1 on 02/02/2024 by Andre Swartz MD at [facility] Right: Eye BAUSCH & LOMB 08/20/2028 [id number] / [id number] / [id number] Lens Li61ao 13.00mm 17.50 - [id number] - [id number] Implanted:Qty : 1 on 02/16/2024 by Andre Swartz MD at [facility] Left: Eye BAUSCH & LOMB 07/20/2028 [id number] / [id number] / [id number] documented as of this encounter Advance Directives Documents on File Type Date Recorded Patient Auto Body Builder Apprentice Expl anation Power of Associate Broker 06/20/2018 POWER OF A TTORNEY POA: [...] the patient have Health Care Power of Associate Broker? Yes, in chart and reviewed as current [...] Power of Attor ephraim? No Care Teams Bleach Liquor Maker Relationship Specialty Start Date End Date Theresa Johnson MD [address] [place] [address] PCP - General Family Medicine 12/19/23 documented as of this encounter
--- OUTSIDE RECORDS SUMMARY | 2024-08-05 04:10 | External Medical Summary ---
Author Name Unknown Address Unknown Organization K01:[facility] [place] [address] [place] [address] Laboratory Report Ordering Provider Test Date Status E,[place] 06/27/2024 05:26:00 Final Observation Date Value Abnormality Reference (Units ) Status BUN 06/27/2024 05:26:00 25 Above high normal 6-20 (mg/dL) Final Creatinine 06/27/2024 05:26:00 1.0 0.6-1.2 (mg/dL) Final Glomerular filtration rate/1.73 sq M.predicted [Volume Rate/Area] in Serum, Plasma or Blood by Creatinine-based formula (CKD-EPI) 06/27/2024 05:26:00 81 >=60 (mL/min) Final eGFR is calculated based on the CKD-EPI 2020 equation. Sodium 06/27/2024 05:26:00 142 135-146 (m mol/L) Final Potassium 06/27/2024 05:26:00 3.6 3.5-5.1 (m mol/L) Final Cl 06/27/2024 05:26:00 111 Above high normal 98 -107 (mmol/L) Final CO2 06/27/2024 05:26:00 23 22-32 (mmo l/L) Final Anion gap 06/27/2024 05:26:00 8 7-15 (mmol /L) Final Glucose 06/27/2024 05:26:00 85 70-120 (mg /dL) Final Calcium 06/27/2024 05:26:00 8.5 8.4-10.2 ( mg/dL) Final Performing Location LABORATORY C - [address] [place] [address]
--- OUTSIDE RECORDS SUMMARY | 2024-08-05 04:10 | External Medical Summary ---
Author Name Unknown Address Unknown Organization : Laboratory Report Ordering Provider Test Date Status REN STUBBS 06/26/2024 00:01:38 Final Observation Date Value Abnormality Reference (Units ) Status Glucose Point of Care 06/26/2024 00:01:38 113 70-120 (mg/dL) Final Performing Location
--- OUTSIDE RECORDS SUMMARY | 2024-08-05 04:10 | External Medical Summary ---
Author Name Unknown Address Unknown Organization K01:LABORATORY [facility] [place] - [address] [place] [address] Laboratory Report Ordering Provider Test Date Status STAR SAWYER 06/25/2024 03:56:00 Final Observation Date Value Abnormality Reference (Units ) Status BUN 06/25/2024 03:56:00 22 Above high normal 6-20 (mg/dL) Final Creatinine 06/25/2024 03:56:00 1.0 0.6-1.2 (mg/dL) Final Glomerular filtration rate/1.73 sq M.predicted [Volume Rate/Area] in Serum, Plasma or Blood by Creatinine-based formula (CKD-EPI) 06/25/2024 03:56:00 79 >=60 (mL/min) Final eGFR is calculated based on the CKD-EPI 2020 equation. Sodium 06/25/2024 03:56:00 143 135-146 (m mol/L) Final Potassium 06/25/2024 03:56:00 3.9 3.5-5.1 (m mol/L) Final Cl 06/25/2024 03:56:00 108 Above high normal 98 -107 (mmol/L) Final CO2 06/25/2024 03:56:00 25 22-32 (mmo l/L) Final Anion gap 06/25/2024 03:56:00 10 7-15 (mmol /L) Final Glucose 06/25/2024 03:56:00 88 70-120 (mg /dL) Final Calcium 06/25/2024 03:56:00 9.1 8.4-10.2 ( mg/dL) Final Performing Location LABORATORY C - [address] [place] [address]
--- OUTSIDE RECORDS SUMMARY | 2024-08-05 04:10 | External Medical Summary ---
Author Name Unknown Address Unknown Organization K01:[facility] [place] [place] [address] [facility] [place] [address] Laboratory Report Ordering Provider Test Date Status STAR SAWYER 06/24/2024 13:05:01 Final Observation Date Value Abnormality Reference (Units ) Status Body temperature 06/24/2024 13:05:01 37.0 (C) Final pH of Arterial blood 06/24/2024 13:05:01 7.406 7.350-7.450 (units) Final Carbon dioxide [Partial pressure] in Arterial blood 06/24/2024 13:05:01 41.2 35.0-45.0 (mmHg) Final Oxygen [Partial pressure] in Arterial blood 06/24/2024 13:05:01 89.3 75.0-100.0 (mmHg) Final Base excess, Arterial 06/24/2024 13:05:01 1.0 -2.0-2.0 (mmol/L) Final Hemoglobin [Mass/volume] in Blood by Oximetry 06/24/2024 13:05:01 16.1 14.0-16.8 (g/dL) Final Oxyhemoglobin, Arterial (FO2HB) 06/24/2024 13:05:01 95.3 94.0-99.0 (% total Hgb) Final Carboxyhemoglobin 06/24/2024 13:05:01 1.2 <=1.5 (% total Hgb) Final Smokers: 0-9.0 % Methemoglobin 06/24/2024 13:05:01 0.9 <= 1.5 (% total Hgb) Final Deoxyhemoglobin/Hemoglobin .total in Arterial blood 06/24/2024 13:05:01 2.6 0.0 -5.0 (% total Hgb) Final Oxygen content in Arterial blood 06/24/2024 13:05:01 21.5 15.0-24.0 (%vol) Paula l Oxygen/Total gas setting [Volume Fraction] Ventilator 06/24/2024 13:05:01 Not Provided (%) Final O2 FLOW, ARTERIAL - [facility] 06/24/2024 13:05:01 Not Provided (L/min) Final Bicarbonate, Venous, POC (i-STAT) 06/24/2024 13:05:01 25.3 23.0-31.0 (mmol/L) Fi nal Performing Location [facility] [address] [facility] [address]
--- OUTSIDE RECORDS SUMMARY | 2024-08-05 04:10 | External Medical Summary ---
Author Name Unknown Address Unknown Organization K01:[facility] [place] [address] [place] [address] Laboratory Report Ordering Provider Test Date Status STAR SAWYER 06/24/2024 10:06:00 Final Observation Date Value Abnormality Reference (Units ) Status Lactic Acid 06/24/2024 10:06:00 1.1 0.4-2.0 (mmol/L) Final Performing Location LABORATORY C - [address] [place] [address]
--- OUTSIDE RECORDS SUMMARY | 2024-08-05 04:10 | External Medical Summary ---
Author Name Unknown Address Unknown Organization K01:LABORATORY [facility] [place] - [address] [place] [address] Laboratory Report Ordering Provider Test Date Status STAR SAWYER 06/25/2024 03:56:00 Final Observation Date Value Abnormality Reference (Units ) Status Magnesium 06/25/2024 03:56:00 2.7 Above high normal 1. 5-2.6 (mg/dL) Final Performing Location LABORATORY C - [address] [place] [address]
--- OUTSIDE RECORDS SUMMARY | 2024-08-05 04:10 | External Medical Summary ---
Author Name Unknown Address Unknown Organization : Laboratory Report Ordering Provider Test Date Status REN STUBBS 06/26/2024 06:15:23 Final Observation Date Value Abnormality Reference (Units ) Status Glucose Point of Care 06/26/2024 06:15:23 128 Above high normal 70-120 (mg/dL) Final Performing Location
--- OUTSIDE RECORDS SUMMARY | 2024-08-05 04:10 | External Medical Summary ---
Author Name Unknown Address Unknown Organization K01:LABORATORY [facility] [place] - [address] [place] [address] Laboratory Report Ordering Provider Test Date Status STAR SAWYER 06/26/2024 06:42:00 Final Observation Date Value Abnormality Reference (Units ) Status BUN 06/26/2024 06:42:00 28 Above high normal 6-20 (mg/dL) Final Creatinine 06/26/2024 06:42:00 1.0 0.6-1.2 (mg/dL) Final Glomerular filtration rate/1.73 sq M.predicted [Volume Rate/Area] in Serum, Plasma or Blood by Creatinine-based formula (CKD-EPI) 06/26/2024 06:42:00 78 >=60 (mL/min) Final eGFR is calculated based on the CKD-EPI 2020 equation. Sodium 06/26/2024 06:42:00 144 135-146 (m mol/L) Final Potassium 06/26/2024 06:42:00 3.9 3.5-5.1 (m mol/L) Final Cl 06/26/2024 06:42:00 112 Above high normal 98 -107 (mmol/L) Final CO2 06/26/2024 06:42:00 21 Below low normal 22- 32 (mmol/L) Final Anion gap 06/26/2024 06:42:00 11 7-15 (mmol /L) Final Glucose 06/26/2024 06:42:00 108 70-120 (mg /dL) Final Calcium 06/26/2024 06:42:00 8.3 Below low normal 8.4 -10.2 (mg/dL) Final Performing Location LABORATORY [facility] [place] - [address] [place] [address]
--- OUTSIDE RECORDS SUMMARY | 2024-08-05 04:10 | External Medical Summary ---
Author Name Unknown Address Unknown Organization K01:[facility] [place] [address] [place] [address] Laboratory Report Ordering Provider Test Date Status STAR SAWYER 06/24/2024 10:06:00 Final Observation Date Value Abnormality Reference (Units ) Status BUN 06/24/2024 10:06:00 13 6-20 (mg/dL) Final Creatinine 06/24/2024 10:06:00 1.0 0.6-1.2 (mg/dL) Final Glomerular filtration rate/1.73 sq M.predicted [Volume Rate/Area] in Serum, Plasma or Blood by Creatinine-based formula (CKD-EPI) 06/24/2024 10:06:00 76 >=60 (mL/min) Final eGFR is calculated based on the CKD-EPI 2020 equation. Sodium 06/24/2024 10:06:00 144 135-146 (m mol/L) Final Potassium 06/24/2024 10:06:00 3.9 3.5-5.1 (m mol/L) Final Cl 06/24/2024 10:06:00 108 Above high normal 98 -107 (mmol/L) Final CO2 06/24/2024 10:06:00 27 22-32 (mmo l/L) Final Anion gap 06/24/2024 10:06:00 9 7-15 (mmol /L) Final Glucose 06/24/2024 10:06:00 82 70-120 (mg /dL) Final Calcium 06/24/2024 10:06:00 8.8 8.4-10.2 ( mg/dL) Final Performing Location [facility] [place] [address] [place] [address]
--- OUTSIDE RECORDS SUMMARY | 2024-08-05 04:10 | External Medical Summary | Summary of Care ---
Author Name Unknown Organization [facility] Address [address] [place] [address] Phone [phone] Care Team Providers Care Captain'S Assistant Name Role Phone Theresa Johnson MD Primary Care Provider [phone] Reason for Visit * Reason Onset Date Comments Appointment 06/25/2024 Encounter Details Date Type Department Care Team (Late st Contact Info) Description 06/25/2024 Telephone Hematology/Oncology Treatment, [place] [address] [place] [address] Maksim Wright MD [address] [place] [address] Appointment Allergies Active Allergy Reactions Criticality Noted Date Comments Benzalkonium Chloride 02/21/2015 Merthiolate "the orange kind" Caused a rash documented as of this encounter (statuses as of 06/25/2024) Medications ALEVE 220 MG PO CAPS as needed Suspended Fluticasone Propionate 50 MCG/ACT Nasal Suspension Administer 1 [place] into nostril in the morning. Suspended FIBER [...] 60 Tablet 4 06/11/19 25 Suspended pyRIDostigmine Secor 60 MG Oral Tablet (Mestinon) Take 1 [...] 8:52 AM EST Patient currently admitted at [facility], scheduled for 2nd vyvgart on 06/29/24. Neuro: FYI- please advise if appt 06/29 should be cancelled documented in this encounter Plan of Treatment Upcoming Encounters Date Type Department Care Team (Late st Contact Info) Description 06/29/2024 8:45 AM EST Hem/Onc Treatment Hematology[address] [phone] Krista, Chair 2 Hem Onc Scenery 200 [facility] [place] [address] 07/06/2024 9:30 AM EST Hem/Onc Treatment [facility] [place] [facility] [phone] Krista, Chair 10 Hem Onc Scenery [address] [place] [address] 07/13/2024 9:30 AM EST Hem/Onc Treatment [facility], [place] [facility] [phone] Krista, Chair 5 Hem Onc Scenery [address] [place], [place] [address] 07/20/2024 9:00 AM EST Telemedicine Neurology [address] [place] [phone] [place], Pharmacist Neurology [address] [place], [place] [phone] 07/25/2024 11:00 AM EST Office Visit Neurology [address] [place] [phone] Maksim Wright MD [address] [place], [place] [phone] 09/13/2024 11:20 AM EDT Office Visit Family Practice [facility] [address] [place] [address] Theresa Johnson MD 200 [facility] [place] [address] 12/11/2024 11:15 AM EDT Office Visit Urology, [facility] [address] [place] [address] Ramesh Phan MD [address] [place] [id number] 05/30/2025 11:15 AM EST Office Visit Dermatology [facility] [address] [place] [address] Marshall Henson MD [address] [place] [address] Scheduled Procedures Name Priority Associated Diagnoses Date/Ti [...] encounter Medical Devices Implanted Type Area Mill Representative Device Identifier Shelf Expiration Date Model / Serial / Lot Port Powerflow 9.6fr - [id number] Implanted:Qty : 1 on 03/15/2023 at [facility] CR BARD : PERIPHERAL VASCULAR [id number] 10/21/2023 [id number] / / [id number] Power Port 8fr Sngl Lumen Plas - [id number] Implanted:Qty : 1 on 03/15/2023 at [facility] CR BARD : PERIPHERAL VASCULAR [id number] 03/22/2024 [id number] / / [id number] Lens Li61ao 13.00mm 18.00 - [id number] - [id number] Implanted:Qty : 1 on 02/02/2024 by Andre Swartz MD at [facility] Right: Eye [employer]CH [employer] LOMB 08/20/2028 [id number] / [id number] / [id number] Lens Li61ao 13.00mm 17.50 - [id number] - [id number] Implanted:Qty : 1 on 02/16/2024 by Andre Swartz MD at [facility] Left: Eye BAUSCH & LOMB 07/20/2028 [id number] / [id number] / [id number] documented as of this encounter Advance Directives Documents on File Type Date Recorded Patient Manager Of Medical Expl anation Power of Sales Department Clerk 06/20/2018 POWER OF A TTORNEY POA: [...] the patient have Health Care Power of Sales Department Clerk? Yes, in chart and reviewed as [...] Power of Attor ephraim? No Care Teams Captain'S Assistant Relationship Specialty Start Date End Date Theresa Johnson MD [address] [facility] [place] [address] PCP - General Family Medicine 12/19/23 documented as of this encounter
--- OUTSIDE RECORDS SUMMARY | 2024-08-05 04:10 | External Medical Summary | Summary of Care ---
Author Name Unknown Organization [facility] Address [address] [facility] [place] [address] Phone [phone] Care Team Providers Care Newspaper Library Manager Name Role Phone Theresa Johnson MD Primary Care Provider [phone] Encounter Details Date Type Department Care Team (Late st Contact Info) Description 06/25/2024 Population Health External Data Unspecified Department Allergies Active Allergy Reactions Criticality Noted Date Comments Benzalkonium Chloride 02/21/2015 Merthiolate "the orange kind" Caused a rash documented as of this encounter (statuses as of 06/25/2024) Medications ALEVE 220 MG PO CAPS as needed Suspended Fluticasone Propionate 50 MCG/ACT Nasal Suspension Administer 1 [place] into nostril in the morning. Suspended FIBER [...] replace every 3 days. 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 on file [...] No 06/24/2024 9:28 AM Marguerite Makc RN documented as of this encounter Mental [...] 8:45 AM EST Hem/Onc Treatment Hematology/Oncology Treatment, [place] 200 [place] [phone] Krista, Chair 2 Hem Onc Scenery [address] [place], [place] [address] 07/06/2024 9:30 AM EST Hem/Onc Treatment Hematology/Oncology Treatment, [place] 200 [place] [phone] Krista, Chair 10 Hem Onc Scenery [address] [place], [place] [address] 07/13/2024 9:30 AM EST Hem/Onc Treatment Hematology/Oncology Treatment, [place] [address] [place] [phone] Krista, Chair 5 Hem Onc Scenery [address] [place], [place] [address] 07/20/2024 9:00 AM EST Telemedicine Neurology [address] [place] [phone] [place], Pharmacist Neurology [address] [place] [address] 07/25/2024 11:00 AM EST Office Visit Neurology [address] [place] [phone] Maksim Wright MD [address] [place] [address] 09/13/2024 11:20 AM EDT Office Visit Family Practice [address] [place] [address] [place], [place] [address] Theresa Johnson MD [address] [place], [place] [address] 12/11/2024 11:15 AM EDT Office Visit Urology, [facility] [address] [place] [address] Ramesh Phan MD [address] [place] [address] 05/30/2025 11:15 AM EST Office [facility] 200 [facility] [place] [address] Marshall Henson MD 200 [facility] [place] [address] Scheduled Procedures Name Priority Associated Diagnoses Date/Ti [...] this encounter Medical Devices Implanted Type Area Front End Loader Operator Device Identifier Shelf Expiration Date Model / Serial / Lot Port Powerflow 9.6fr - [id number] Implanted:Qty : 1 on 03/15/2023 at [facility] CR BARD : PERIPHERAL VASCULAR [id number] 10/21/2023 [id number] / / [id number] Power Port 8fr Sngl Lumen Plas - [id number] Implanted:Qty : 1 on 03/15/2023 at [facility] CR BARD : PERIPHERAL VASCULAR [id number] 03/22/2024 [id number] / / [id number] Lens Li61ao 13.00mm 18.00 - [id number] - [id number] Implanted:Qty : 1 on 02/02/2024 by Andre Swartz MD at [facility] Right: Eye BAUSCH [employer] LOMB 08/20/2028 [id number] / [id number] / [id number] Lens Li61ao 13.00mm 17.50 - [id number] - [id number] Implanted:Qty : 1 on 02/16/2024 by Andre Swartz MD at [facility] Left: Eye BAUSCH & LOMB 07/20/2028 [id number] / [id number] / [id number] documented as of this encounter Advance Directives Documents on File Type Date Recorded 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 Yes, in chart and reviewed as current [...] Power of Attor ephraim? No Care Teams Newspaper Library Manager Relationship Specialty Start Date End Date Theresa Johnson MD 200 [facility] [place] [address] PCP - General Family Medicine 12/19/23 documented as of this encounter
--- OUTSIDE RECORDS SUMMARY | 2024-08-05 04:10 | External Medical Summary ---
Author Name Unknown Address Unknown Organization K01:[facility] [place] [address] [facility] [address] Laboratory Report Ordering Provider Test Date Status STAR SAWYER 06/25/2024 03:56:00 Final Observation Date Value Abnormality Reference (Units ) Status WBC, Total 06/25/2024 03:56:00 8.81 4.00-10.80 (K/uL) Final RBC 06/25/2024 03:56:00 5.03 4.50-5.25 (M/uL) Final Hemoglobin 06/25/2024 03:56:00 15.4 14.0-16.8 (g/dL) Final HCT 06/25/2024 03:56:00 48.1 40.0-48.4 (%) Final MCV 06/25/2024 03:56:00 95.6 82.0-99.5 (fL) Final MCH 06/25/2024 03:56:00 30.6 27.0-34.0 (pg) Final MCHC 06/25/2024 03:56:00 32.0 32.0-36.0 (g/dL) Final RDW 06/25/2024 03:56:00 13.3 11.5-15.5 (%) Final Platelets 06/25/2024 03:56:00 265 140-400 (K/uL) Final MPV 06/25/2024 03:56:00 9.8 6.6-11.1 (fL) Final Nucleated erythrocytes/100 leukocytes [Ratio] in Blood by Automated count 06/25/2024 03:56:00 0 <=0 (/100 WBCs) Final Performing Location LAB[facility]ORY [facility] - [address] [place] [address]
--- OUTSIDE RECORDS SUMMARY | 2024-08-05 04:10 | External Medical Summary ---
Author Name Unknown Address Unknown Organization K01:LABORATORY [facility] [place] - [address] [place] [address] Laboratory Report Ordering Provider Test Date Status STAR SAWYER 06/24/2024 10:06:00 Final Observation Date Value Abnormality Reference (Units ) Status Albumin 06/24/2024 10:06:00 4.2 3.8-5.0 (g/dL) Final AST (Aspartate aminotransferase) 06/24/2024 10:06:00 34 10-50 (U/L) Final Alk Phos 06/24/2024 10:06:00 33 Below low normal 35-130 (U/L) Final ALT (Alanine aminotransferase) 06/24/2024 10:06:00 32 10-50 (U/L) Final Bilirubin, Total 06/24/2024 10:06:00 0.9 <=1.2 (mg/dL) Final Bilirubin, Direct 06/24/2024 10:06:00 0.3 0.0-0.3 (mg/dL) Final Protein 06/24/2024 10:06:00 6.9 6.0-8.3 (g/dL) Final Performing Location LABORATORY [facility] [place] - [address] [place] [address]
--- OUTSIDE RECORDS SUMMARY | 2024-08-05 04:10 | External Medical Summary ---
Author Name Unknown Address Unknown Organization K01:LAB[facility]ATORY [facility] - [address] [place] [address] Laboratory Report Ordering Provider Test Date Status E,[place] 06/27/2024 05:26:00 Final Observation Date Value Abnormality Reference (Units ) Status Phosphate 06/27/2024 05:26:00 2.7 2.5-4.8 (m g/dL) Final Performing Location LAB[facility]ORY [facility] - [address] [place] [address]
--- OUTSIDE RECORDS SUMMARY | 2024-08-05 04:10 | External Medical Summary | Summary of Care ---
Author Name Unknown Organization [facility] Address [address] [place] [address] Phone [phone] Care Team Providers Care Trust Advisor Name Role Phone Theresa Johnson MD Primary Care Provider [phone] Reason for Visit * Reason Onset Date Comments Appointment 06/25/2024 Encounter Details Date Type Department Care Team (Late st Contact Info) Description 06/25/2024 Telephone Hematology/Oncology Treatment, [place] [address] [place] [address] Maksim Wright MD [address] [place] [address] Appointment Allergies Active Allergy Reactions Criticality Noted Date Comments Benzalkonium Chloride 02/21/2015 Merthiolate "the orange kind" Caused a rash documented as of this encounter (statuses as of 06/25/2024) Medications ALEVE 220 MG PO CAPS as needed Suspended Fluticasone Propionate 50 MCG/ACT Nasal Suspension Administer 1 [place] into nostril in the morning. 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 Neuro: FYI- please advise if appt 06/29 should be cancelled documented in this encounter Plan of Treatment Upcoming Encounters Date Type Department Care Team (Late st Contact Info) Description 06/29/2024 8:45 AM EST Hem/Onc Treatment Hematology/[address], [address] [phone] Krista, Chair 2 Hem Onc Scenery [address] [facility] [place] [address] 07/06/2024 9:30 AM EST Hem/Onc Treatment [facility]ematology[facility], [place] [facility] [phone] Krista, Chair 10 Hem Onc Scenery [address] [place] [address] 07/13/2024 9:30 AM EST Hem/Onc Treatment Hematology/Oncology Treatment, [place] [address] [facility] [phone] Krista, Chair 5 Hem Onc Scenery [address] [place], [place] [address] 07/20/2024 9:00 AM EST Telemedicine Neurology [address] [place] [phone] [place], Pharmacist Neurology [address] [place], [place] [phone] 07/25/2024 11:00 AM EST Office Visit Neurology [address] [place] [phone] Maksim Wright MD [address] [place], [place] [phone] 09/13/2024 11:20 AM EDT Office Visit Family Practice [facility] [address] [place] [address] Theresa Johnson MD 200 [facility] [place] [address] 12/11/2024 11:15 AM EDT Office Visit Urology, [facility] [address] [place] [address] Ramesh Phan MD [address] [place] [phone] 05/30/2025 11:15 AM EST Office Visit Dermatology [facility] [address] [place] [address] Marshall Henson MD [address] [place] [address] Scheduled Procedures Name Priority Associated Diagnoses Date/Ti [...] this encounter Medical Devices Implanted Type Area Nuclear Process Engineer Device Identifier Shelf Expiration Date Model / Serial / Lot Port Powerflow 9.6fr - [id number] Implanted:Qty : 1 on 03/15/2023 at [facility] CR BARD : PERIPHERAL VASCULAR [id number] 10/21/2023 [id number] / / [id number] Power Port 8fr Sngl Lumen Plas - [id number] Implanted:Qty : 1 on 03/15/2023 at [facility] CR BARD : PERIPHERAL VASCULAR [id number] 03/22/2024 [id number] / / [id number] Lens Li61ao 13.00mm 18.00 - [id number] - [id number] Implanted:Qty : 1 on 02/02/2024 by Andre Swartz MD at [facility] Right: Eye BAUSCH & LOMB 08/20/2028 [id number] / [id number] / [id number] Lens Li61ao 13.00mm 17.50 - [id number] - [id number] Implanted:Qty : 1 on 02/16/2024 by Andre Swartz MD at [facility] Left: Eye BAUSCH & LOMB 07/20/2028 [id number] / [id number] / [id number] documented as of this encounter Advance Directives Documents on File Type Date Recorded 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 Yes, in chart and reviewed as [...] Power of Attor ephraim? No Care Teams Trust Advisor Relationship Specialty Start Date End Date Theresa Johnson MD [address] [place] [facility] [place] [address] PCP - General Family Medicine 12/19/23 documented as of this encounter
--- OUTSIDE RECORDS SUMMARY | 2024-08-05 04:10 | External Medical Summary ---
Author Name Unknown Address Unknown Organization K01:LABORATORY [facility] - [address] [place] [address] Laboratory Report Ordering Provider Test Date Status E,[place] 06/27/2024 05:26:00 Final Observation Date Value Abnormality Reference (Units ) Status Magnesium 06/27/2024 05:26:00 2.5 1.5-2.6 (m g/dL) Final Performing Location [facility] - [address] [place] [address]
--- OUTSIDE RECORDS SUMMARY | 2024-08-05 04:10 | External Medical Summary ---
Author Name Unknown Address Unknown Organization K01:[facility]ORY [facility] – [place] - [address] [facility] [place] [id number] Laboratory Report Ordering Provider Test Date Status E,[place] 06/27/2024 05:26:00 Final Observation Date Value Abnormality Reference (Units ) Status WBC, Total 06/27/2024 05:26:00 10.57 4.00-10.80 (K/uL) Final RBC 06/27/2024 05:26:00 4.78 4.50-5.25 (M/uL) Final Hemoglobin 06/27/2024 05:26:00 15.3 14.0-16.8 (g/dL) Final HCT 06/27/2024 05:26:00 45.2 40.0-48.4 (%) Final MCV 06/27/2024 05:26:00 94.6 82.0-99.5 (fL) Final MCH 06/27/2024 05:26:00 32.0 27.0-34.0 (pg) Final MCHC 06/27/2024 05:26:00 33.8 32.0-36.0 (g/dL) Final RDW 06/27/2024 05:26:00 13.2 11.5-15.5 (%) Final Platelets 06/27/2024 05:26:00 211 140-400 (K/uL) Final MPV 06/27/2024 05:26:00 9.9 6.6-11.1 (fL) Final Nucleated erythrocytes/100 leukocytes [Ratio] in Blood by Automated count 06/27/2024 05:26:00 0 <=0 (/100 WBCs) Final Performing Location [facility] – [place] - [address] [place] [address]
--- OUTSIDE RECORDS SUMMARY | 2024-08-05 04:10 | External Medical Summary ---
Author Name Unknown Address Unknown Organization [id number]:[place] [facility] [place] [facility] [address] [place] [address] Laboratory Report Ordering Provider Test Date Status SILVERIOJAZMINHARLAN 06/24/2024 10:06:00 Final Less than 0.5 ng/mL: Low ris k for progression to sepsis. Review patients condition for localized infections.

0.5 to 2.0 ng/mL: Intermediate risk for progresion to sepsis. Review underlying conditions. Recommend repeat PCT after 6 hours has elapsed.

Greater than 2.0 ng/mL: high risk for progression to sepsis unless other causes are known. Observation Date Value Abnormality Reference (Units ) Status Procalcitonin [Mass/volume] in Serum or Plasma by Immunoassay 06/24/2024 10:06:00 0.08 <0.10 (ng/mL) Final Performing Location [facility] [facility] [place] [facility] [address] [place] [address]
--- OUTSIDE RECORDS SUMMARY | 2024-08-05 04:10 | External Medical Summary ---
Author Name Unknown Address Unknown Organization [id number]:[place] [facility] [place] [address] [place] [address] Laboratory Report Ordering Provider Test Date Status STAR SAWYER 06/24/2024 10:06:00 Final Observation Date Value Abnormality Reference (Units ) Status Body temperature 06/24/2024 10:06:00 37.0 (C) Final pH of Venous blood 06/24/2024 10:06:00 7.351 7.320-7.430 (units) Final Carbon dioxide [Partial pressure] in Venous blood 06/24/2024 10:06:00 54.9 40.0-60.0 (mmHg) Final Oxygen [Partial pressure] in Venous blood 06/24/2024 10:06:00 26.7 25.0-50.0 (mmHg) Final Base excess, Capillary 06/24/2024 10:06:00 2.9 Above high normal -2.0-2.0 (mmol/L) Final Hemoglobin [Mass/volume] in Blood by Oximetry 06/24/2024 10:06:00 16.6 14.0-16.8 (g/dL) Final Oxyhemoglobin, Venous (FO2HB) 06/24/2024 10:06:00 40.8 40.0-85.0 (% total Hgb) Final Carboxyhemoglobin 06/24/2024 10:06:00 1.1 <=1.5 (% total Hgb) Final Smokers: 0-9.0 % Methemoglobin 06/24/2024 10:06:00 1.3 <=1.5 (% total Hgb) Final Deoxyhemoglobin/Hemoglobin.t otal in Venous blood 06/24/2024 10:06:00 56.8 (% total Hgb) Paula l Oxygen content in Venous blood 06/24/2024 10:06:00 9.5 7.0-18.0 (%vol) Final Bicarbonate, Venous, POC (i-STAT) 06/24/2024 10:06:00 29.6 23.0-31.0 (mmol/L) Formerly [facility] Performing Location [facility] [place] [address] [facility] [address]
--- OUTSIDE RECORDS SUMMARY | 2024-08-05 04:11 | External Medical Summary ---
Author Name Unknown Address Unknown Organization K01:[facility] [place] [address] [facility] [address] Laboratory Report Ordering Provider Test Date Status STAR SAWYER 06/24/2024 10:06:00 Final Observation Date Value Abnormality Reference (Units ) Status Calcium.ionized [Moles/volume] in Blood by Ion-selective membrane electrode (ISE) 06/24/2024 10:06:00 1.22 1.13-1.32 (mmol/L) Final Performing Location [facility] [place] [address] [facility] [address]
--- NOTE | 2024-08-05 04:22 | Emergency Department Note ---
Impression & Plan Infection due to parainfluenza virus 3, Bronchitis, History of myasthenia gravis ED Provider Note NAME: JILL WALL AGE: 74 SEX: M : 1950 ARRIVES VIA: Ambulance INFORMANT: Patient ED PROVIDER(S): Shaq Becker MD CHIEF COMPLAINT: Cough/congestion, shortness of breath. PLAN: Disposition: Admit MEDICAL DECISION MAKING: The patient is a pleasant 74-year-old gentleman with a past medical history of myasthenia gravis on chronic prednisone, migraines, BPH who presents to the emergency department via EMS for evaluation of worsening cough, congestion shortness of breath over the past several days. Patient reports he worried that he could be having a flare of his myasthenia though he admits that he is not having any trouble or weakness swallowing which is usually how his myasthenia has exhibited. He denies nausea, vomiting or diarrhea. He reports persistent postnasal drip and nasal congestion. On evaluation the patient is no acute distress, afebrile with heart rate in the 100s and blood pressure 160s/90s and vital signs otherwise stable. He appears clinically dry. Exhibits boggy nasal turbinates. Oropharynx is unremarkable. He is able to phonate normally and appropriately raise the soft palate symmetrically. He exhibits expiratory wheezes bilaterally with normal respiratory effort. EKG without overt acute ischemia. CXR negative for acute cardiopulmonary process per my personal preliminary review/interpretation. WBC 12.3 K with neutrophilia but no left shift, nonspecific. H/H and platelets within normal limits. Chemistry without metabolic acidosis. Potassium 3.1 electrolytes otherwise unremarkable. LFTs unremarkable. High-sensitivity troponin 5.7, within normal limits. VBG with pCO2 of 54 with normal pH. Procalcitonin is not elevated. Respiratory BioFire was positive for parainfluenza 3. Upon reevaluation the patient did feel some improvement following IV hydration, DuoNeb, guaifenesin and nasal saline. Given the patient's history of myasthenia additional steroids deferred at this time. Given the patient denies any weakness with swallow which is typical for his myasthenia flares suspect symptoms are likely related to component of bronchitis related to his Parainfluenza 3 infection. The patient does agree with plan for admission for further monitoring and management. Case was discussed with Dr. Gonzalez, [facility] hospitalist, who will evaluate the patient for admission. Further management per admitting team. Triage Nursing notes reviewed and agree them. Prior/external medical records reviewed Vital Signs: reviewed Differential diagnosis: Reactive airway disease, pneumonia, pneumothorax, COPD, CHF, infections, cardiac ischemia, pulmonary embolism, musculoskeletal, gastrointestinal, as well as other pathologies. ER treatment provided: See below. Diagnostics interpreted by me: ECG: Normal sinus rhythm, 93 bpm, no ectopy, no overt ST elevation or depression, QTc 415, QRS 72. Cardiac Monitoring: An order for continuous cardiac monitoring was placed and demonstrated Normal sinus rhythm, 93 bpm, no ectopy Laboratory studies: See below Imaging studies: See below Consultation(s): [facility]. HPI: The patient is a pleasant 74-year-old gentleman with a past medical history of myasthenia gravis on chronic prednisone, migraines, BPH who presents to the emergency department via EMS for evaluation of worsening cough, congestion shortness of breath over the past several days. Patient reports he worried that he could be having a flare of his myasthenia though he admits that he is not having any trouble or weakness swallowing which is usually how his myasthenia has exhibited. He denies nausea, vomiting or diarrhea. He reports persistent postnasal drip and nasal congestion. ROS: See above HPI for pertinent positives & negatives. A total of 10 systems reviewed and were otherwise negative. VITALS:See Below PHYSICAL EXAMINATION: GENERAL: Awake, alert, well-appearing, in no distress HENT: Normocephalic, atraumatic. Exhibits boggy nasal turbinates. Oropharynx is unremarkable. He is able to phonate normally and appropriately raise the soft palate symmetrically. EYES: Normal conjunctiva. Sclera non-icteric. NECK: Supple. No nuchal rigidity. FROM. No JVD. RESPIRATORY: Expiratory wheezes bilaterally with normal respiratory effort. CARDIAC: Tachycardic rate, normal rhythm. Extremities warm and well perfused. Pulses equal. ABDOMEN: Soft, non-distended. No tenderness to palpation. No rebound or guarding. No masses. MUSCULOSKELETAL: Chest examination reveals no tenderness. The back is symmetrical on inspection without obvious abnormality. There is no CVA tenderness to palpation. No joint edema. LOWER EXTREMITIES: Calves are equal size bilaterally and non-tender. No edema. No discoloration. NEURO: Normal sensorium. No sensory or motor deficits noted. SKIN: No rash or jaundice noted. Shaq Becker MD Past Med/Surg History Problem List History of myasthenia gravis (Acute) Bronchitis (Acute) Infection due to parainfluenza virus 3 (Acute) BPH (benign prostatic hyperplasia) Dysphagia Myasthenia gravis in crisis Myasthenia gravis with (acute) exacerbation (Acute) Pain of right calf (Acute) Social History Smoking Status: Never smoker Second Hand Exposure: No; Do You Dip or Chew Tobacco: No; Hx Alcohol Use: Yes Alcohol type: beer Hx Substance Use: No Preferred Language: Upper Sorbian Communication Ability: Effective Final Inspector Paper Required: No Beliefs That Will Affect Care: None Current Living Situation: Alone Feels Safe at Home: Yes Assistive Devices: Cane and Glasses Allergies Allergies Allergy/AdvReac Type Severity Reaction Status Date / Time RITHAMIN Allergy . Uncoded 05/03/12 16:05 Home Meds Home Medications Medication Instructions Recorded Confirmed alendronate 70 mg tablet 70 mg PO WK 06/23/24 06/23/24 finasteride 5 mg tablet 5 mg PO DAILY 06/23/24 06/23/24 mirtazapine 15 mg tablet 15 mg PO HS 06/23/24 06/23/24 prednisone 10 mg tablet 30 mg PO DAILY 06/23/24 06/23/24 pyridostigmine bromide 60 mg tablet 60 mg PO Q4H 06/23/24 06/23/24 sumatriptan succinate 100 mg tablet 100 mg PO UD 06/23/24 06/23/24 tamsulosin 0.4 mg capsule 0.4 mg PO DAILY 06/23/24 06/23/24 Results & Data (ED) Vital Signs Vital Signs - 24 hr 08/05/24 03:59 08/05/24 04:01 08/05/24 04:06 Temperature 37.2 C Temperature Source Oral Pulse Rate 103 H 102 H Pulse Rate [Apical] Pulse Rhythm Regular Pulse Rhythm [Apical] Pulse Strength [Apical] Respiratory Rate 18 Respiratory Effort / Characteristics Non-Labored Spontaneous Labored Respiratory Depth Normal Normal Respiratory Pattern Regular Regular Blood Pressure 160/94 H Blood Pressure [Left Arm] Blood Pressure Mean 116 Blood Pressure Mean [Left Arm] Blood Pressure Position [Left Arm] Pulse Oximetry 95 Oxygen Delivery Method Room Air Room Air Sepsis Recent Fever Within 48 Hours No Sepsis New/Unexplained Change in Mental Status N/A Sepsis Action Taken by Nursing No Action Required 08/05/24 05:00 08/05/24 05:00 08/05/24 05:49 Temperature Temperature Source Pulse Rate Pulse Rate [Apical] 111 H Pulse Rhythm Pulse Rhythm [Apical] Regular Pulse Strength [Apical] Normal Respiratory Rate 18 Respiratory Effort / Characteristics Non-Labored Respiratory Depth Normal Respiratory Pattern Regular Blood Pressure Blood Pressure [Left Arm] 160/94 H Blood Pressure Mean Blood Pressure Mean [Left Arm] 116 Blood Pressure Position [Left Arm] Sitting Pulse Oximetry 92 92 98 Oxygen Delivery Method Room Air Room Air Room Air Sepsis Recent Fever Within 48 Hours Sepsis New/Unexplained Change in Mental Status Sepsis Action Taken by Nursing Laboratory Data Attestation: I reviewed the patient's lab results. 08/05/24 04:17 08/05/24 04:17 Lab Results 08/05/24 08/05/24 08/05/24 Range/Units 04:04 04:17 04:34 WBC 12.30 H (4.8-10.8) K/ul RBC 5.30 (4.70-6.10) M/uL Hgb 16.4 (14.0-18.0) g/dl Hct 49.5 (42.0-52.0) % MCV 93.4 (80.0-100.0) fL MCH 30.9 (25.0-34.0) pg MCHC 33.1 (32.0-36.0) g/dL RDW Std Deviation 47.3 H (36.4-46.3) fL RDW Coeff of Patricia 13.6 (11.5-14.5) % Plt Count 252 (130-400) K/uL MPV 9.9 (9.4-12.4) fL Immature Gran % (Auto) 0.7 % Neut % (Auto) 83.7 % Lymph % (Auto) 7.7 % [place] % (Auto) 6.8 % Eos % (Auto) 0.8 % Baso % (Auto) 0.3 % Neut # (Auto) 10.28 H (1.40-6.50) K/uL Lymph # (Auto) 0.95 L (1.20-3.40) K/uL [place] # (Auto) 0.84 H (0.11-0.59) K/uL Eos # (Auto) 0.10 (0.00-0.50) K/uL Baso # (Auto) 0.04 (0.00-0.20) K/uL Immature Gran # (Auto) 0.09 (0.01-0.20) K/uL PT 10.4 (9.0-12.0) Seconds INR 1.0 (0.9-1.1) VBG pH 7.41 (7.36-7.41) VBG pCO2 54 H (38-50) mmHg VBG pO2 < 20 mmHg VBG HCO3 34 mmol/L VBG O2 Saturation < 60.0 % VBG Base Excess 7.8 mEq/L Sodium 142 (136-145) mmol/L Potassium 3.1 L (3.5-5.1) mmol/L Chloride 104 (98-107) mmol/L Carbon Dioxide 33 H (21-32) mmol/L Anion Gap 5 (3-11) BUN 13 (6-23) mg/dl Creatinine 1.13 (0.6-1.4) mg/dl Est Cr Clr Drug Dosing 60.8 ml/min eGFR 69.06 BUN/Creatinine Ratio 11.5 (10-20) Glucose 94 (70-99(Fasting)) mg/dl Calcium 9.4 (8.6-10.3) mg/dl Total Bilirubin 0.8 (0.2-1.0) mg/dl AST 21 (13-39) U/L ALT 22 (7-52) U/L Alkaline Phosphatase 32 L (34-104) U/L Troponin I High Sens 5.7 (0-20) pg/ml Total Protein 7.0 (6.0-8.3) gm/dl Albumin 4.9 (3.4-5.0) gm/dl Globulin 2.1 L (2.5-4.0) gm/dl Albumin/Globulin Ratio 2.3 H (0.9-2) Lipase 150 H (11-82) U/L Procalcitonin (0-0.5) ng/ml Adenovirus (PCR) Not Detected (NotDetected) B. pertussis DNA (PCR) Not Detected (NotDetected) B.parapertussis DNA PCR Not Detected (NotDetected) C. pneumoniae DNA (PCR) Not Detected (NotDetected) Coronavirus OC43 (PCR) Not Detected (NotDetected) Coronavirus HKU1 (PCR) Not Detected (NotDetected) Coronavirus 229E (PCR) Not Detected (NotDetected) SARS-CoV-2 (PCR) Not Detected (NotDetected) Coronavirus NL63 (PCR) Not Detected (NotDetected) Human Metapneumovir PCR Not Detected (NotDetected) Influenza Type A (PCR) Not Detected (NotDetected) Influenza Type B (PCR) Not Detected (NotDetected) M. pneumoniae (PCR) Not Detected (NotDetected) Parainfluenza 1 (PCR) Not Detected (NotDetected) Parainfluenza 2 (PCR) Not Detected (NotDetected) Parainfluenza 3 (PCR) DETECTED A (NotDetected) Parainfluenza 4 (PCR) Not Detected (NotDetected) RSV (PCR) Not Detected (NotDetected) Entero/Rhino (PCR) Not Detected (NotDetected) 08/05/24 Range/Units 04:47 WBC (4.8-10.8) K/ul RBC (4.70-6.10) M/uL Hgb (14.0-18.0) g/dl Hct (42.0-52.0) % MCV (80.0-100.0) fL MCH (25.0-34.0) pg MCHC (32.0-36.0) g/dL RDW Std Deviation (36.4-46.3) fL RDW Coeff of Patricia (11.5-14.5) % Plt Count (130-400) K/uL MPV (9.4-12.4) fL Immature Gran % (Auto) % Neut % (Auto) % Lymph % (Auto) % [place] % (Auto) % Eos % (Auto) % Baso % (Auto) % Neut # (Auto) (1.40-6.50) K/uL Lymph # (Auto) (1.20-3.40) K/uL [place] # (Auto) (0.11-0.59) K/uL Eos # (Auto) (0.00-0.50) K/uL Baso # (Auto) (0.00-0.20) K/uL Immature Gran # (Auto) (0.01-0.20) K/uL PT (9.0-12.0) Seconds INR (0.9-1.1) VBG pH (7.36-7.41) VBG pCO2 (38-50) mmHg VBG pO2 mmHg VBG HCO3 mmol/L VBG O2 Saturation % VBG Base Excess mEq/L Sodium (136-145) mmol/L Potassium (3.5-5.1) mmol/L Chloride (98-107) mmol/L Carbon Dioxide (21-32) mmol/L Anion Gap (3-11) BUN (6-23) mg/dl Creatinine (0.6-1.4) mg/dl Est Cr Clr Drug Dosing ml/min eGFR BUN/Creatinine Ratio (10-20) Glucose (70-99(Fasting)) mg/dl Calcium (8.6-10.3) mg/dl Total Bilirubin (0.2-1.0) mg/dl AST (13-39) U/L ALT (7-52) U/L Alkaline Phosphatase (34-104) U/L Troponin I High Sens (0-20) pg/ml Total Protein (6.0-8.3) gm/dl Albumin (3.4-5.0) gm/dl Globulin (2.5-4.0) gm/dl Albumin/Globulin Ratio (0.9-2) Lipase (11-82) U/L Procalcitonin 0.08 (0-0.5) ng/ml Adenovirus (PCR) (NotDetected) B. pertussis DNA (PCR) (NotDetected) B.parapertussis DNA PCR (NotDetected) C. pneumoniae DNA (PCR) (NotDetected) Coronavirus OC43 (PCR) (NotDetected) Coronavirus HKU1 (PCR) (NotDetected) Coronavirus 229E (PCR) (NotDetected) SARS-CoV-2 (PCR) (NotDetected) Coronavirus NL63 (PCR) (NotDetected) Human Metapneumovir PCR (NotDetected) Influenza Type A (PCR) (NotDetected) Influenza Type B (PCR) (NotDetected) M. pneumoniae (PCR) (NotDetected) Parainfluenza 1 (PCR) (NotDetected) Parainfluenza 2 (PCR) (NotDetected) Parainfluenza 3 (PCR) (NotDetected) Parainfluenza 4 (PCR) (NotDetected) RSV (PCR) (NotDetected) Entero/Rhino (PCR) (NotDetected) Administered Medications Discontinued Medications Albuterol (Albut/Ipratrop 3mg/0.5mg Neb 3 Ml Vial) 3 ml NEB NOW STA; Protocol Stop: 08/05/24 04:10 Last Admin: 08/05/24 04:31 Dose: 3 ml Documented By: ELOISE Guaifenesin (Guaifenesin 600 Mg Tabcr) 600 mg PO NOW STA Stop: 08/05/24 04:10 Last Admin: 08/05/24 04:31 Dose: 600 mg Documented By: ELOISE Sodium Chloride (Nss) 500 mls @ 999 mls/hr IV .Q31M ONE Stop: 08/05/24 04:47 Last Infusion: 08/05/24 05:35 Dose: Infused Documented By: Admin: 08/05/24 04:34 Dose: 999 mls/hr Documented By: ELOISE Sodium Chloride (Sodium Chloride 0.65% Na Soln 45 Ml (Sandoval)) 2 sprays NA NOW ONE Stop: 08/05/24 04:10 Last Admin: 08/05/24 04:31 Dose: 2 sprays Documented By: ELOISE Imaging Data Radiologist's Impression: Chest X-Ray 08/05/24 04:10 EXAM: XR chest 1V portable CLINICAL HISTORY: Shortness of breath. TECHNIQUE: An X-ray image of the chest is obtained in AP projection. COMPARISON: prior 06/23/2024 FINDINGS: Pulmonary Parenchyma: Bilateral prominent hilar bronchopulmonary vasculature with interstitial reticulations. No evidence of consolidation, collapse, or focal opacities. No pulmonary nodules are identified. No evidence of pleural effusion or pleural thickening. Heart and Mediastinum: Heart size and shape are normal. No mediastinal widening or masses. No hilar or mediastinal lymphadenopathy. Bony Thorax: Bilateral acromioclavicular asrthropathy. Soft Tissues: Soft tissues overlying the chest wall are unremarkable. A tubular structure is seen overlying the right hemithorax, could represent a chest tube and requires clinical correlation. Removed previous NGT. IMPRESSION: 1. Bilateral prominent hilar bronchopulmonary vasculature with interstitial reticulations. 2. No acute cardiopulmonary abnormalities are identified.(Removed previous NGT, otherwise no time interval significant radiological changes). Electronically signed by Shay Norton 08-05-2024 06:07 AM Chest X-Ray 08/05/24 04:10 EXAM: XR chest 1V portable CLINICAL HISTORY: Shortness of breath. TECHNIQUE: An X-ray image of the chest is obtained in AP projection. COMPARISON: prior 06/23/2024 FINDINGS: Pulmonary Parenchyma: Bilateral prominent hilar bronchopulmonary vasculature with interstitial reticulations. No evidence of consolidation, collapse, or focal opacities. No pulmonary nodules are identified. No evidence of pleural effusion or pleural thickening. Heart and Mediastinum: Heart size and shape are normal. No mediastinal widening or masses. No hilar or mediastinal lymphadenopathy. Bony Thorax: Bilateral acromioclavicular asrthropathy. Soft Tissues: Soft tissues overlying the chest wall are unremarkable. A tubular structure is seen overlying the right hemithorax, could represent a chest tube and requires clinical correlation. Removed previous NGT. IMPRESSION: 1. Bilateral prominent hilar bronchopulmonary vasculature with interstitial reticulations. 2. No acute cardiopulmonary abnormalities are identified.(Removed previous NGT, otherwise no time interval significant radiological changes). Electronically signed by Shay Norton 08-05-2024 06:07 AM Discharge Plan Visit Data Chief Complaint: Shortness of Breath/Dyspnea Stated Complaint: SHORTNESS OF BREATH ED Provider: Shaq Becker Discharge Problem: Infection due to parainfluenza virus 3, Bronchitis, History of myasthenia gravis Forms Stand Alone Forms: [facility] Prescriptions Prescriptions: No Action prednisone 10 mg tablet 30 mg PO DAILY alendronate 70 mg tablet 70 mg PO WK tamsulosin 0.4 mg capsule 0.4 mg PO DAILY pyridostigmine bromide 60 mg tablet 60 mg PO Q4H mirtazapine 15 mg tablet 15 mg PO HS finasteride 5 mg tablet 5 mg PO DAILY sumatriptan succinate 100 mg Tablet 100 mg PO UD Rx Instructions: take 1 tab at onset of headache; if no relief, may repeat 1 tab after at least 2 hrs; max = 2 tabs/24 hrs Referrals Referrals: Rich Goel MD [Outside Practitioners] -
[2024-08-05] MEDS: SODIUM CHLORIDE 0.65% NA SOLN 45 ML (OCEAN) ONE (04:31)
[2024-08-05] MEDS: guaiFENesin 600 MG TABCR PO STA (04:31)
[2024-08-05] MEDS: ALBUT/IPRATROP 3MG/0.5MG NEB 3 ML VIAL NEB STA (04:31)
[2024-08-05 04:32] LABS: Basophils # (auto) 0.04 K/uL (0.00-0.20); Basophils % (auto) 0.3 %; Eosinophils % (auto) 0.8 %; Hematocrit (blood only) 49.5 % (42.0-52.0); Hemoglobin 16.4 g/dl (14.0-18.0); Immature Granulocytes # (auto) 0.09 K/uL (0.01-0.20); Immature Granulocytes % (auto) 0.7 %; Lymphocytes # (auto) 0.95 K/uL (1.20-3.40); Lymphocytes % (auto) 7.7 %; Mean Corpuscular Hemoglobin 30.9 pg (25.0-34.0); Mean Corpuscular Hgb Conc 33.1 g/dL (32.0-36.0); Mean Corpuscular Volume 93.4 fL (80.0-100.0); Mean Platelet Volume 9.9 fL (9.4-12.4); Monocytes # (auto) 0.84 K/uL (0.11-0.59); Monocytes % (auto) 6.8 %; Neutrophils # (auto) 10.28 K/uL (1.40-6.50); Neutrophils % (auto) 83.7 %; Platelet Count 252 K/uL (130-400); RDW Coefficient of Variation 13.6 % (11.5-14.5); RDW Standard Deviation 47.3 fL (36.4-46.3)
[2024-08-05] MEDS: SODIUM CHLORIDE 0.9% 500 ML IV ONE (04:34)
[2024-08-05 04:40] LABS: Base Excess VBG 7.8 mEq/L; HCO3 VBG 34 mmol/L; Oxygen Saturation VBG < 60.0 %; PCO2 VBG 54 mmHg (38-50); PO2 VBG < 20 mmHg; pH VBG 7.41 (7.36-7.41)
[2024-08-05 04:49] LABS: Albumin Globulin Ratio 2.3 (0.9-2); Albumin Level 4.9 gm/dl (3.4-5.0); BUN Creatinine Ratio 11.5 (10-20); Bilirubin,Total 0.8 mg/dl (0.2-1.0); Calcium 9.4 mg/dl (8.6-10.3); Creatinine Clr Calc Pharmacy 60.8 ml/min; Globulin 2.1 gm/dl (2.5-4.0); Potassium 3.1 mmol/L (3.5-5.1)
[2024-08-05 04:54] LABS: Troponin I High Sensitivity 5.7 pg/ml (0-20)
[2024-08-05 05:01] LABS: Prothrombin Time 10.4 Seconds (9.0-12.0)
[2024-08-05 05:15] LABS: Adenovirus PCR Not Detected (NotDetected); Bordetella parapertussis PCR Not Detected (NotDetected); Bordetella pertussis PCR Not Detected (NotDetected); Chlamydia pneumoniae PCR Not Detected (NotDetected); Coronavirus 229E PCR Not Detected (NotDetected); Coronavirus CoV-2 (COVID19)PCR Not Detected (NotDetected); Coronavirus HKU1 PCR Not Detected (NotDetected); Coronavirus NL63 PCR Not Detected (NotDetected); Coronavirus OC43PCR Not Detected (NotDetected); Human Metapneumovirus PCR Not Detected (NotDetected); Influenza A PCR Not Detected (NotDetected); Influenza B PCR Not Detected (NotDetected); Mycoplasma pneumoniae PCR Not Detected (NotDetected); Parainfluenza Virus 1 PCR Not Detected (NotDetected); Parainfluenza Virus 2 PCR Not Detected (NotDetected); Parainfluenza Virus 3 PCR DETECTED (NotDetected); Parainfluenza Virus 4 PCR Not Detected (NotDetected); Respiratory Syncytial VirusPCR Not Detected (NotDetected); Rhinovirus/Enterovirus PCR Not Detected (NotDetected)
--- NOTE | 2024-08-05 06:07 | XRay Report ---
EXAM: XR chest 1V portable CLINICAL HISTORY: Shortness of breath. TECHNIQUE: An X-ray image of the chest is obtained in AP projection. COMPARISON: prior 06/23/2024 FINDINGS: Pulmonary Parenchyma: Bilateral prominent hilar bronchopulmonary vasculature with interstitial reticulations. No evidence of consolidation, collapse, or focal opacities. No pulmonary nodules are identified. No evidence of pleural effusion or pleural thickening. Heart and Mediastinum: Heart size and shape are normal. No mediastinal widening or masses. No hilar or mediastinal lymphadenopathy. Bony Thorax: Bilateral acromioclavicular asrthropathy. Soft Tissues: Soft tissues overlying the chest wall are unremarkable. A tubular structure is seen overlying the right hemithorax, could represent a chest tube and requires clinical correlation. Removed previous NGT. IMPRESSION: 1. Bilateral prominent hilar bronchopulmonary vasculature with interstitial reticulations. 2. No acute cardiopulmonary abnormalities are identified.(Removed previous NGT, otherwise no time interval significant radiological changes). Electronically signed by Shay Norton 08-05-2024 06:07 AM
--- NOTE | 2024-08-05 07:56 | History & Physical Report ---
Date of Service August 05, 2024 Assessment & Plan (1) Acute bronchitis: Plan: 72-year-old male with past medical history significant for prostate cancer, BPH, history of basal cell carcinoma, history of myasthenia gravis, history of ptosis of right eyelid presents with cough and shortness of breath. Patient states since last was having congestion. He was having postnasal drip and cough. His symptoms seemed okay. But last night he had a coughing spell and felt very short of breath and got worried about his myasthenia gravis and came to the hospital. Respiratory bio fire positive for parainfluenza virus. Denies any chest pain. Denies any headache. No difficulty swallowing. No nausea. No abdominal pain. Normal bowel and bladder movements. Patient was recently in the hospital on June 23, 2024 with myasthenia gravis exacerbation where he was having difficulty swallowing and also vision problem. He did not improve with IVIG infusion and was transferred to [place] for plasmapheresis. He improved with plasmapheresis. Since then his vision is almost back to normal per patient. His dysphagia resolved. Acute bronchitis Parainfluenza positive On exam as rhonchi and occasional wheezing Saturating okay on room air Continue home prednisone 30 mg daily Nebs ATC and as needed Close monitor History of myasthenia gravis Recent flare Currently on prednisone 20 and 30 mg on alternate daily. Will continue 30 mg daily for now On Mestinon 60 mg 3 times daily Also on vyvgart infusion . Next infusion on 08/13/2024 Close monitor for recurrence of flare History of prostate cancer Under surveillance with urology BPH On finasteride and Flomax Will monitor DVT prophylaxis Lovenox Disposition Med/telemetry Full code. History of Present Illness Chief Complaint: Shortness of breath and cough Primary Care Provider: Theresa Johnson MD 72-year-old male with past medical history significant for prostate cancer, BPH, history of basal cell carcinoma, history of myasthenia gravis, history of ptosis of right eyelid presents with cough and shortness of breath. Patient states since last was having congestion. He was having postnasal drip and cough. His symptoms seemed okay. But last night he had a coughing spell and felt very short of breath and got worried about his myasthenia gravis and came to the hospital. Respiratory bio fire positive for parainfluenza virus. Denies any chest pain. Denies any headache. No difficulty swallowing. No [place]. No abdominal pain. Normal bowel and bladder movements. Patient was recently in the hospital on June 23, 2024 with myasthenia gravis exacerbation where he was having difficulty swallowing and also vision problem. He did not improve with IVIG infusion and was transferred to [place] for plasmapheresis. He improved with plasmapheresis. Since then his vision is almost back to normal per patient. His dysphagia resolved. Past medical history. As mentioned above Past surgical history. Colonoscopy. Dental surgery. Prostate needle Punch biopsy. Bilateral cataracts. Tonsillectomy adenoidectomy. Skin lesion biopsy. Social history. No smoking. Alcohol occasional. No drug use. Family history. Sister had breast cancer. Hepatitis C cured. Migraines. Father had prostate cancer. Colon/bladder cancer. Dementia. Mother had diabetes. Hypertension. Pacemaker, CHF. Uncle had prostate cancer. Allergies Allergy/AdvReac Type Severity Reaction Status Date / Time thimerosal Allergy Hives Verified 08/05/24 09:02 [From Merthiolate (thimerosal)] Home Medications Medication Instructions Recorded Confirmed Type alendronate 70 mg tablet 70 mg PO WK 08/05/24 08/05/24 History finasteride 5 mg tablet 5 mg PO DAILY 08/05/24 08/05/24 History mirtazapine 15 mg tablet 15 mg PO HS 08/05/24 08/05/24 History prednisone 10 mg tablet 30 mg PO DAILY 08/05/24 08/05/24 History pyridostigmine bromide 60 mg tablet 60 mg PO TID 08/05/24 08/05/24 History tamsulosin 0.4 mg capsule 0.4 mg PO DAILY 08/05/24 08/05/24 History Past Med/Surg History Problem List (Updated 08/05/24 @ 07:52 by Toni Gonzalez MD) Acute bronchitis History of myasthenia gravis (Acute) Bronchitis (Acute) Infection due to parainfluenza virus 3 (Acute) BPH (benign prostatic hyperplasia) Dysphagia Myasthenia gravis in crisis Myasthenia gravis with (acute) exacerbation (Acute) Pain of right calf (Acute) Social History Smoking Status: Never smoker Second Hand Exposure: No; Do You Dip or Chew Tobacco: No; Hx Alcohol Use: Yes Alcohol type: beer Hx Substance Use: No Preferred Language: Tajik Communication Ability: Effective Group Fitness Instructor Required: No Beliefs That Will Affect Care: None Current Living Situation: Alone Feels Safe at Home: Yes Assistive Devices: Cane and Glasses Review of Systems Review of Systems: All systems reviewed & are unremarkable except as noted in HPI & below Physical Exam Physical Exam: General- adult Head- atraumatic Eyes- PERRL. ENT- oropharynx clear Neck- supple, no JVD. Lungs- clear to auscultation mild b/l rhonchi and occasional wheezing. Heart- regular rhythm; no murmur, no gallop. Abdomen- normal bowel sounds, soft, nontender, no distension Extremities- no pretibial edema, no erythema seen Neuro- alert, oriented , PERRL, no facial palsy; no dysarthria; moves extremities Results & Data Results & Data Vital Signs (Past 12 Hours) Vital Signs Temp Pulse Pulse Resp BP BP Pulse Ox 08/05/24 05:49 111 H 18 160/94 H 98 08/05/24 05:00 92 08/05/24 05:00 92 08/05/24 04:06 08/05/24 04:01 102 H 08/05/24 03:59 37.2 C 103 H 18 160/94 H 95 O2 Del Method 08/05/24 05:49 Room Air 08/05/24 05:00 Room Air 08/05/24 05:00 Room Air 08/05/24 04:06 Room Air 08/05/24 04:01 08/05/24 03:59 Room Air Diagnostic Findings Laboratory Results WBC 12.30 K/ul (4.8-10.8) H 08/05/24 04:17 RBC 5.30 M/uL (4.70-6.10) 08/05/24 04:17 Hgb 16.4 g/dl (14.0-18.0) 08/05/24 04:17 Hct 49.5 % (42.0-52.0) 08/05/24 04:17 MCV 93.4 fL (80.0-100.0) 08/05/24 04:17 MCH 30.9 pg (25.0-34.0) 08/05/24 04:17 MCHC 33.1 g/dL (32.0-36.0) 08/05/24 04:17 RDW Std Deviation 47.3 fL (36.4-46.3) H 08/05/24 04:17 RDW Coeff of Patricia 13.6 % (11.5-14.5) 08/05/24 04:17 Plt Count 252 K/uL (130-400) 08/05/24 04:17 MPV 9.9 fL (9.4-12.4) 08/05/24 04:17 Immature Gran % (Auto) 0.7 % 08/05/24 04:17 Neut % (Auto) 83.7 % 08/05/24 04:17 Lymph % (Auto) 7.7 % 08/05/24 04:17 Cross % (Auto) 6.8 % 08/05/24 04:17 Eos % (Auto) 0.8 % 08/05/24 04:17 Baso % (Auto) 0.3 % 08/05/24 04:17 Neut # (Auto) 10.28 K/uL (1.40-6.50) H 08/05/24 04:17 Lymph # (Auto) 0.95 K/uL (1.20-3.40) L 08/05/24 04:17 Cross # (Auto) 0.84 K/uL (0.11-0.59) H 08/05/24 04:17 Eos # (Auto) 0.10 K/uL (0.00-0.50) 08/05/24 04:17 Baso # (Auto) 0.04 K/uL (0.00-0.20) 08/05/24 04:17 Immature Gran # (Auto) 0.09 K/uL (0.01-0.20) 08/05/24 04:17 PT 10.4 Seconds (9.0-12.0) 08/05/24 04:17 INR 1.0 (0.9-1.1) 08/05/24 04:17 VBG pH 7.41 (7.36-7.41) 08/05/24 04:34 VBG pCO2 54 mmHg (38-50) H 08/05/24 04:34 VBG pO2 < 20 mmHg 08/05/24 04:34 VBG HCO3 34 mmol/L 08/05/24 04:34 VBG O2 Saturation < 60.0 % 08/05/24 04:34 VBG Base Excess 7.8 mEq/L 08/05/24 04:34 Sodium 142 mmol/L (136-145) 08/05/24 04:17 Potassium 3.1 mmol/L (3.5-5.1) L 08/05/24 04:17 Chloride 104 mmol/L (98-107) 08/05/24 04:17 Carbon Dioxide 33 mmol/L (21-32) H 08/05/24 04:17 Anion Gap 5 (3-11) 08/05/24 04:17 BUN 13 mg/dl (6-23) 08/05/24 04:17 Creatinine 1.13 mg/dl (0.6-1.4) 08/05/24 04:17 Est Cr Clr Drug Dosing 60.8 ml/min 08/05/24 04:17 eGFR 69.06 08/05/24 04:17 BUN/Creatinine Ratio 11.5 (10-20) 08/05/24 04:17 Glucose 94 mg/dl (70-99(Fasting)) 08/05/24 04:17 Calcium 9.4 mg/dl (8.6-10.3) 08/05/24 04:17 Total Bilirubin 0.8 mg/dl (0.2-1.0) 08/05/24 04:17 AST 21 U/L (13-39) 08/05/24 04:17 ALT 22 U/L (7-52) 08/05/24 04:17 Alkaline Phosphatase 32 U/L (34-104) L 08/05/24 04:17 Troponin I High Sens 5.7 pg/ml (0-20) 08/05/24 04:17 Total Protein 7.0 gm/dl (6.0-8.3) 08/05/24 04:17 Albumin 4.9 gm/dl (3.4-5.0) 08/05/24 04:17 Globulin 2.1 gm/dl (2.5-4.0) L 08/05/24 04:17 Albumin/Globulin Ratio 2.3 (0.9-2) H 08/05/24 04:17 Lipase 150 U/L (11-82) H 08/05/24 04:17 Procalcitonin 0.08 ng/ml (0-0.5) 08/05/24 04:47 Adenovirus (PCR) Not Detected (NotDetected) 08/05/24 04:04 B. pertussis DNA (PCR) Not Detected (NotDetected) 08/05/24 04:04 B.parapertussis DNA PCR Not Detected (NotDetected) 08/05/24 04:04 C. pneumoniae DNA (PCR) Not Detected (NotDetected) 08/05/24 04:04 Coronavirus OC43 (PCR) Not Detected (NotDetected) 08/05/24 04:04 Coronavirus HKU1 (PCR) Not Detected (NotDetected) 08/05/24 04:04 Coronavirus 229E (PCR) Not Detected (NotDetected) 08/05/24 04:04 SARS-CoV-2 (PCR) Not Detected (NotDetected) 08/05/24 04:04 Coronavirus NL63 (PCR) Not Detected (NotDetected) 08/05/24 04:04 Human Metapneumovir PCR Not Detected (NotDetected) 08/05/24 04:04 Influenza Type A (PCR) Not Detected (NotDetected) 08/05/24 04:04 Influenza Type B (PCR) Not Detected (NotDetected) 08/05/24 04:04 M. pneumoniae (PCR) Not Detected (NotDetected) 08/05/24 04:04 Parainfluenza 1 (PCR) Not Detected (NotDetected) 08/05/24 04:04 Parainfluenza 2 (PCR) Not Detected (NotDetected) 08/05/24 04:04 Parainfluenza 3 (PCR) DETECTED (NotDetected) A 08/05/24 04:04 Parainfluenza 4 (PCR) Not Detected (NotDetected) 08/05/24 04:04 RSV (PCR) Not Detected (NotDetected) 08/05/24 04:04 Entero/Rhino (PCR) Not Detected (NotDetected) 08/05/24 04:04 Impressions Chest X-Ray 08/05/24 04:10 EXAM: XR chest 1V portable CLINICAL HISTORY: Shortness of breath. TECHNIQUE: An X-ray image of the chest is obtained in AP projection. COMPARISON: prior 06/23/2024 FINDINGS: Pulmonary Parenchyma: Bilateral prominent hilar bronchopulmonary vasculature with interstitial reticulations. No evidence of consolidation, collapse, or focal opacities. No pulmonary nodules are identified. No evidence of pleural effusion or pleural thickening. Heart and Mediastinum: Heart size and shape are normal. No mediastinal widening or masses. No hilar or mediastinal lymphadenopathy. Bony Thorax: Bilateral acromioclavicular asrthropathy. Soft Tissues: Soft tissues overlying the chest wall are unremarkable. A tubular structure is seen overlying the right hemithorax, could represent a chest tube and requires clinical correlation. Removed previous NGT. IMPRESSION: 1. Bilateral prominent hilar bronchopulmonary vasculature with interstitial reticulations. 2. No acute cardiopulmonary abnormalities are identified.(Removed previous NGT, otherwise no time interval significant radiological changes). Electronically signed by Shay Norton 08-05-2024 06:07 AM ECG Additional Comments: ECG. Normal sinus rhythm rate of 93. No acute ST changes seen. Code Status & VTE Plan VTE Prophylaxis Plan VTE Prophylaxis will be ordered: Yes
[2024-08-05] MEDS: POTASSIUM CHLORIDE CRTAB 20 MEQ TABCR PO STA (08:08)
[2024-08-05] MEDS: ACETAMINOPHEN 1,000 MG/100 ML VIAL IV STA (08:08)
[2024-08-05] MEDS: POTASSIUM CHLORIDE / WTR 10 MEQ/100 ML PLCT IV ONE (08:36)
[2024-08-05] MEDS ORDERED: NITROGLYCERIN SL 0.4 MG/TAB TAB SL PRN (08:39)
[2024-08-05] MEDS ORDERED: POLYETHYLENE (MIRALAX) 17 GM PACK PO PRN (08:39)
[2024-08-05] MEDS: pyRIDostigmine bromide 60 MG TAB PO SCH (09:32)
[2024-08-05] MEDS: predniSONE 10 MG TABLET PO SCH (09:32)
[2024-08-05] MEDS: FINASTERIDE 5 MG TAB PO SCH (09:33)
[2024-08-05] MEDS: TAMSULOSIN HCL 0.4 MG CAP PO SCH (09:33)
[2024-08-05] MEDS: BENZONATATE 100 MG CAPSULE PO SCH (09:34)
[2024-08-05] MEDS: ENOXAPARIN INJ 40 MG/0.4 ML SYR SQ SCH (09:35)
[2024-08-05] MEDS: SODIUM CHLORIDE 0.9% 1,000 ML IV SCH (09:38)
[2024-08-05] MEDS: LEVALBUTEROL 1.25 MG/3 ML NEB NEB SCH (10:37)
--- NOTE | 2024-08-05 12:14 | Electrocardiogram Report ---
Test Reason : Blood Pressure : */* mmHG Vent. Rate : 93 BPM Atrial Rate : 93 BPM P-R Int : 118 ms QRS Dur : 72 ms QT Int : 334 ms P-R-T Axes : 59 41 43 degrees QTcB Int : 415 ms Normal sinus rhythm Normal ECG When compared with ECG of 24-Jun-2024 01:05, Vent. rate has increased by 34 bpm Confirmed by Kevin Tom ([id number]) on 08/05/2024 12:13:35 PM Referred By: REFERRED SELF Confirmed By: Kevin Tom
--- NOTE | 2024-08-05 12:21 | Communication Note ---
Date of Service: August 05, 2024 Patient seen and examined Reports cough but breathing a bit better today Continue supportive care Loratadine added Continue nebs, home prednisone Other plans as detailed in H/P this AM
[2024-08-05] MEDS: LORATADINE 10 MG TAB PO SCH (13:05)
[2024-08-05] MEDS: MIRTAZAPINE TAB 15 MG TAB PO SCH (20:24)
[2024-08-05] MEDS: ACETAMINOPHEN 325 MG TAB PO PRN (21:28)
[2024-08-06] MEDS: guaiFENesin/DEXTROM SYRUP 100MG/10MG 5ML UDC PO PRN (02:27)
[2024-08-06 06:16] LABS: Basophils # (auto) 0.02 K/uL (0.00-0.20); Basophils % (auto) 0.2 %; Eosinophils # (auto) 0.01 K/uL (0.00-0.50); Eosinophils % (auto) 0.1 %; Hematocrit (blood only) 42.6 % (42.0-52.0); Hemoglobin 14.3 g/dl (14.0-18.0); Immature Granulocytes # (auto) 0.05 K/uL (0.01-0.20); Immature Granulocytes % (auto) 0.6 %; Lymphocytes # (auto) 0.49 K/uL (1.20-3.40); Lymphocytes % (auto) 5.5 %; Mean Corpuscular Hgb Conc 33.6 g/dL (32.0-36.0); Mean Corpuscular Volume 92.4 fL (80.0-100.0); Monocytes # (auto) 0.75 K/uL (0.11-0.59); Monocytes % (auto) 8.4 %; Neutrophils # (auto) 7.64 K/uL (1.40-6.50); Neutrophils % (auto) 85.2 %; Platelet Count 208 K/uL (130-400); RDW Coefficient of Variation 13.8 % (11.5-14.5); RDW Standard Deviation 47.4 fL (36.4-46.3); Red Blood Count 4.61 M/uL (4.70-6.10); White Blood Count 8.96 K/ul (4.8-10.8)
[2024-08-06 06:33] LABS: BUN Creatinine Ratio 17.7 (10-20); Calcium 8.5 mg/dl (8.6-10.3); Creatinine Clr Calc Pharmacy 73.2 ml/min; Magnesium 2.1 mg/dl (1.7-2.4); Potassium 3.6 mmol/L (3.5-5.1)
[2024-08-06] MEDS: BENZONATATE 100 MG CAPSULE PO PRN (09:00)
[2024-08-06] MEDS: guaiFENesin 600 MG TABCR PO SCH (09:12)
--- NOTE | 2024-08-06 10:28 | Hospitalist Progress Note ---
Date of Service August 06, 2024 Assessment & Plan (1) Acute bronchitis: Plan: 72-year-old male with past medical history significant for prostate cancer, BPH, history of basal cell carcinoma, history of myasthenia gravis, history of ptosis of right eyelid presents with cough and shortness of breath. Acute bronchitis Parainfluenza positive on respiratory panel Continue home prednisone 30 mg daily Continue nebs Add mucinex 1200mg BID History of myasthenia gravis Recent flare Continue prednisone 30 mg daily On Mestinon 60 mg 3 times daily Also on vyvgart infusion . Next infusion on 08/13/2024 Close monitoring for recurrence of flare History of prostate cancer Under surveillance with urology BPH On finasteride and Flomax Will monitor DVT prophylaxis Lovenox Full code. I spent a total of 50 minutes coordinating, documenting and providing care for this patient excluding time spent in performance of separately billed services Admission and Anticipated Discharge Date Admission Date: August 05, 2024 Subjective Patient seen and examined Reports cough was quite significant overnight and this AM. Stated he did not sleep much because of this Increased weakness due to that No shortness of breath. Denied other complaints Physical Exam Constitutional: + well hydrated; no acute distress Eyes: PERRL, conjunctivae normal, anicteric sclerae ENMT: external ear and nose normal, oropharynx normal Respiratory: +cough, +rhonchi Cardiovascular: Rate/Rhythm: regular rate and regular rhythm Gastrointestinal (Abdomen): normal bowel sounds, soft, nontender, no hepatosplenomegaly Musculoskeletal: No pedal edema Neurologic: PERRL, EOMI, accommodation nl, no face palsy, no dysarthria Psychiatric: A+Ox3, euthymic affect Results & Data Results & Data Vital Signs (Past 12 Hours) Vital Signs Temp Pulse Pulse Resp BP Pulse Ox O2 Del Method 08/06/24 09:40 106 H 08/06/24 08:08 84 15 92 Room Air 08/06/24 07:40 37.8 C H 89 18 134/76 96 Room Air 08/06/24 07:35 Room Air 08/06/24 02:22 37.1 C 106 H 20 143/72 H 94 Room Air 08/05/24 23:35 37.6 C H 101 H 20 116/60 93 Room Air FiO2 08/06/24 09:40 08/06/24 08:08 21 08/06/24 07:40 08/06/24 07:35 08/06/24 02:22 08/05/24 23:35 Laboratory Results Abnormal lab results 08/06/24 Range/Units 05:26 RBC 4.61 L (4.70-6.10) M/uL RDW Std Deviation 47.4 H (36.4-46.3) fL Neut # (Auto) 7.64 H (1.40-6.50) K/uL Lymph # (Auto) 0.49 L (1.20-3.40) K/uL [place] # (Auto) 0.75 H (0.11-0.59) K/uL Calcium 8.5 L (8.6-10.3) mg/dl
[2024-08-06] MEDS: LEVALBUTEROL 1.25 MG/3 ML NEB NEB PRN (11:55)
[2024-08-06] MEDS ORDERED: guaiFENesin/CODEINE 100MG/10MG 5ML UDC PO PRN (22:27)
[2024-08-06] MEDS: HYDROcodone/HOMATROPINE SYRUP 5MG/1.5MG 5ML UDP PO PRN (23:51)
[2024-08-07 07:09] LABS: Hematocrit (blood only) 41.6 % (42.0-52.0); Hemoglobin 13.8 g/dl (14.0-18.0); Mean Corpuscular Hemoglobin 30.9 pg (25.0-34.0); Mean Corpuscular Hgb Conc 33.2 g/dL (32.0-36.0); Mean Corpuscular Volume 93.1 fL (80.0-100.0); Mean Platelet Volume 10.1 fL (9.4-12.4); Platelet Count 213 K/uL (130-400); RDW Coefficient of Variation 13.7 % (11.5-14.5); Red Blood Count 4.47 M/uL (4.70-6.10); White Blood Count 7.61 K/ul (4.8-10.8)
[2024-08-07 07:18] LABS: Anion Gap 3 (3-11); BUN Creatinine Ratio 17.5 (10-20); Blood Urea Nitrogen 17 mg/dl (6-23); Calcium 8.4 mg/dl (8.6-10.3); Carbon Dioxide 33 mmol/L (21-32); Chloride 105 mmol/L (98-107); Creatinine Clr Calc Pharmacy 72.3 ml/min; Glucose 81 mg/dl (70-99(Fasting)); Magnesium 2.5 mg/dl (1.7-2.4); Phosphorus 2.3 mg/dl (2.5-4.9); Sodium 141 mmol/L (136-145)
[2024-08-07 08:00] VITALS: O2SAT 95
--- NOTE | 2024-08-07 09:55 | Discharge Summary ---
Date of Service August 07, 2024 Admission HPI Per Admitting Provider 72-year-old male with past medical history significant for prostate cancer, BPH, history of basal cell carcinoma, history of myasthenia gravis, history of ptosis of right eyelid presents with cough and shortness of breath. Patient states since last was having congestion. He was having postnasal drip and cough. His symptoms seemed okay. But last night he had a coughing spell and felt very short of breath and got worried about his myasthenia gravis and came to the hospital. Respiratory bio fire positive for parainfluenza virus. Denies any chest pain. Denies any headache. No difficulty swallowing. No nausea. No abdominal pain. Normal bowel and bladder movements. Patient was recently in the hospital on June 23, 2024 with myasthenia gravis exacerbation where he was having difficulty swallowing and also vision problem. He did not improve with IVIG infusion and was transferred to [place] for plasmapheresis. He improved with plasmapheresis. Since then his vision is almost back to normal per patient. His dysphagia resolved. Past medical history. As mentioned above Past surgical history. Colonoscopy. Dental surgery. Prostate needle Punch biopsy. Bilateral cataracts. Tonsillectomy adenoidectomy. Skin lesion biopsy. Social history. No smoking. Alcohol occasional. No drug use. Family history. Sister had breast cancer. Hepatitis C cured. Migraines. Father had prostate cancer. Colon/bladder cancer. Dementia. Mother had diabetes. Hypertension. Pacemaker, CHF. Uncle had prostate cancer. Admission Exam Per Admitting Provider General- adult Head- atraumatic Eyes- PERRL. ENT- oropharynx clear Neck- supple, no JVD. Lungs- mild b/l rhonchi and occasional wheezing. Heart- regular rhythm; no murmur, no gallop. Abdomen- normal bowel sounds, soft, nontender, no distension Extremities- no pretibial edema, no erythema seen Neuro- alert, oriented , PERRL, no facial palsy; no dysarthria; moves extremities Principal Diagnosis Acute bronchitis Parainfluenza infection Discharge Exam Constitutional + well hydrated; no acute distress Eyes PERRL, conjunctivae normal, anicteric sclerae ENMT external ear and nose normal, oropharynx normal Respiratory normal respiratory effort, lungs clear to auscultation Cardiovascular Rate/Rhythm: regular rate and regular rhythm Gastrointestinal (Abdomen) normal bowel sounds, soft, nontender, no hepatosplenomegaly Musculoskeletal no cyanosis or clubbing, extremities motor strength 5/5 No pedal edema Neurologic PERRL, EOMI, accommodation nl, no face palsy, no dysarthria Psychiatric A+Ox3, euthymic affect Discharge Data Allergies Allergy/AdvReac Type Severity Reaction Status Date / Time thimerosal Allergy Hives Verified 08/05/24 09:02 [From Merthiolate (thimerosal)] Consultations 08/05/24 05:48 ED Decision to Admit Stat Hospital Course (1) Acute bronchitis: 72-year-old male with past medical history significant for prostate cancer, BPH, history of basal cell carcinoma, history of myasthenia gravis, history of ptosis of right eyelid presents with cough and shortness of breath. Acute bronchitis Parainfluenza positive on respiratory panel Patient was managed with supportive care- nebs, antitussives Home prednisone 30 mg daily was continued Reports improvement of symptoms. Discharged on mucinex 1200mg bid and hydromet prn cough History of myasthenia gravis Recent flare Continue prednisone 30 mg daily On Mestinon 60 mg 3 times daily Also on vyvgart infusion . Next infusion on 08/13/2024 Close monitoring for recurrence of flare History of prostate cancer Under surveillance with urology BPH On finasteride and Flomax Total Time Total Time Spent Total Time Spent (In Minutes): 35 Total Time Includes: Examination of the Patient, Discharge Planning and Medication Reconciliation Discharge Plan Discharge Items Patient Disposition: Home - Self-Care Reason For Visit: Cough, Shortness of breath Discharge Diagnosis: Acute bronchitis Parainfluenza infection Activity: Resume your previous activity Non-emergency contact: Primary Care Provider Call non-emergency contact if: you have any medication questions Follow-up/Referrals: Theresa Johnson MD [Primary Care Provider] - Diet: Regular Addtl Attending Provider Instructions: Mr Sosa You were admitted and managed for the above listed diagnoses. You are being discharged home. Please ensure follow up with your Primary Doctor. It was a pleasure taking care of you Pending Studies at Discharge: No Stand-Alone Forms: [employer], Smoking Cessation Medications and DC Order Prescriptions: New hydrocodone-homatropine [Hydromet] 5-1.5 mg/5 mL Syrup 5 ml PO Q8H PRN (Reason: cough) Qty: 473 0RF loratadine [Wal-itin] 10 mg Tablet 10 mg PO QAM 5 Days Qty: 5 0RF guaifenesin [Mucinex] 600 mg Tablet Extended Release 12hr 1,200 mg PO Q12 5 Days Qty: 20 0RF Continued prednisone 10 mg tablet 30 mg PO DAILY alendronate 70 mg tablet 70 mg PO WK tamsulosin 0.4 mg capsule 0.4 mg PO DAILY pyridostigmine bromide 60 mg tablet 60 mg PO TID mirtazapine 15 mg tablet 15 mg PO HS finasteride 5 mg tablet 5 mg PO DAILY Discharge Orders: Discharge Order (Routine); Ordered 08/07/24 Ordered By: Nata Cummings Admission Data Admit Date/Time: 08/05/24 06:59 Attending Provider: Nata Cummings I. Admit Provider: Toni Gonzalez Primary Care Provider: Theresa Johnson Other Providers: Toni Gonzalez Other Interventions: Discharge Summary Assessment (RN) Last Done: 08/07/24 12:17
[2024-08-07] MEDS: POT PHOSPHATE MONOBASIC W/ SOD TAB PO SCH (09:59)
[2024-08-07 11:00] VITALS: BP 121/61; RESP 16; TEMP 98.8
[2024-08-07 12:21] VITALS: PULSE 91
== END 2024-08-07 14:21 | disposition home or self-care (01) | DRG 203 ==
LOC: ED 03:56 → EDINP 06:59 → 2N 19:36